=== PATIENT | female | born 1955 | race Caucasian/White ===

== ENCOUNTER 2019-04-19 17:47 | Inpatient (IN) | payer SELFPAY ==
[~2019-04-19] VITALS: Ht 160 cm; Wt 138.5 kg
[~2019-04-19 17:47] MED LIST: LIDOCAINE 2% TOPICAL JELLY 5GM TUBE. TP ONE
[2019-04-19 18:25] LABS: BILIRUBIN,URINE LARGE (NEG); CLARITY,URINE CLOUDY; NITRITE,URINE POSITIVE (NEG); PROTEIN,URINE 30 mg/dL (NEG-TRACE)
[2019-04-19 18:29] LABS: BASO % 0 % (0-3); EOS % 0 % (0-3); HEMATOCRIT 40.7 % (36.0-47.0); LYMPH # 1.1 x10^3/uL (1.0-4.8); LYMPH % 10 % (24-48); MEAN CORPUSCULAR HEMOGLOBIN 23 pg (25-35); MEAN CORPUSCULAR HGB CONC 32 g/dL (31-37); MEAN CORPUSCULAR VOLUME 71 fL (79-100); MONO # 0.6 x10^3/uL (0.0-1.1); MONO % 6 % (0-9); NEUT # 9.1 x10^3/uL (1.8-7.7); NEUT % 84 % (31-73); PLATELET COUNT 244 x10^3/uL (140-400); RED BLOOD COUNT 5.77 x10^6/uL (3.50-5.40); RED CELL DISTRIBUTION WIDTH 17.5 % (11.5-14.5); WHITE BLOOD COUNT 10.8 x10^3/uL (4.0-11.0)
[2019-04-19 18:30] LABS: COLOR,URINE AMBER; SQUAMOUS EPITHELIAL CELL,UR FEW /LPF
[2019-04-19 18:31] LABS: BACTERIA,URINE MANY /HPF (0-FEW); RBC,URINE TNTC /HPF (0-2)
--- NOTE | 2019-04-19 18:31 | PHYS DOC ---
Past Medical History Past Medical History: Diabetes-Type II, Hypertension Past Surgical History: Additional Past Surgical Histo: X2 Alcohol Use: None Drug Use: None Date and Time of Assessment Date: Apr 19, 2019 Time: 19:25 Vital Signs Vital Signs: Vital Signs Date Time Temp Pulse Resp B/P (MAP) Pulse Ox O2 Delivery O2 Flow Rate FiO2 04/19/19 17:47 97.7 122 20 148/67 (94) 95 Room Air 97.7 Temperature Source: Oral Respirations Respiratory Pattern: Normal Peripheral Pulse Pulse Location: Monitor Pulse Assessment Method: Monitor Integumentary Skin: Warm Skin Turgor: Normal Skin Color: warm, dry Adult General Chief Complaint Chief Complaint: WEAKNESS/GENERALIZED HPI HPI Patient is a 63 year old female who presents with states of weakness. Patient states she's had ongoing weakness times prostate 3 weeks with falls �2. She'll follow Wednesday she states her right leg gave out hitting her head. She is well sutured a fall today. She describes nausea, decreased appetite. Patient has no primary care physician, takes no medications. She is given her progressive weakness in her falls she presented to the emergency department for further evaluation. Prior to 3 weeks ago she's been ambulating on her own however now states her has to help move her in transfer her to different positions. Review of Systems Review of Systems Constitutional: Chills, weakness HENT: Denies nasal congestion or sore throat [] Respiratory: Off, no shortness of breath Cardiovascular: No chest pain GI: Denies abdominal pain, vomiting, bloody stools or diarrhea [positive nausea] : Denies dysuria or hematuria [] Musculoskeletal: Weakness Integument: Venous stasis changes to lower extremities, dry skin, excoriation to peroneal area. Neurologic: Denies headache Endocrine: Denies polyuria or polydipsia [] All other systems were reviewed and found to be within normal limits, except as documented in this note. Current Medications Current Medications Current Medications Medications (Trade) Dose Ordered Sig/[place] Start Time Stop Time Status Last Admin Dose Admin Acetaminophen (Tylenol) 650 mg PRN Q4HRS PRN 04/19/19 19:30 04/20/19 19:29 Ceftriaxone Sodium (Rocephin) 1 gm 1X ONCE 04/19/19 18:45 04/19/19 18:46 DC 04/19/19 19:17 1 GM Dextrose 250 ml PRN Q15MIN PRN 04/19/19 19:30 Dextrose (Dextrose 50%-Water Syringe) 12.5 gm PRN Q15MIN PRN 04/19/19 19:30 Insulin Human Lispro (HumaLOG) 0-7 UNITS TIDWMEALS 04/20/19 08:00 Ondansetron HCl (Zofran) 4 mg PRN Q8HRS PRN 04/19/19 19:30 04/20/19 19:29 Sodium Chloride 1,000 ml @ 1,560 mls/hr Q39M 04/19/19 19:15 04/19/19 20:03 04/19/19 19:17 1,560 MLS/HR Vancomycin HCl (Vanco Per Pharmacy) 1 each PRN DAILY PRN 04/19/19 19:15 UNV Vancomycin HCl 2 gm/Sodium Chloride 500 ml @ 250 mls/hr 1X ONCE 04/19/19 19:15 04/19/19 21:14 Allergies Allergies Allergies Coded Allergies Type Severity Reaction Last Updated Verified No Known Drug Allergies 04/19/19 No Physical Exam Physical Exam Constitutional: Ill - Appearing female, no acute distress HENT: Normocephalic, abrasions appreciated right side of face, dry mucous membranes[] Eyes: PERRLA, EOMI, conjunctiva normal, no discharge. [] Neck: Normal range of motion, no tenderness, supple, no stridor. [] Cardiovascular: Tachycardia Lungs & Thorax: Bilateral breath sounds clear to auscultation [] Abdomen: Bowel sounds normal, soft, no tenderness, no masses, no pulsatile masses. [] Skin: Warm, dry, erythema to bilaterl lower ext/venous stasis changes. [] : Excoriation, bruising appreciated to perineal area Back: No tenderness, no CVA tenderness. [] Extremities: bilateral lower ext edema, chronic Neurologic: Alert and oriented X 3, normal motor function, normal sensory function, no focal deficits noted. [] Psychologic: Flat affect. [] Current Patient Data Vital Signs Vital Signs Date Time Temp Pulse Resp B/P (MAP) Pulse Ox O2 Delivery O2 Flow Rate FiO2 04/19/19 17:47 97.7 122 20 148/67 (94) 95 Room Air 97.7 Lab Values Laboratory Tests Test 04/19/19 18:08 04/19/19 18:19 Urine Collection Type U cath Urine Color Yani Urine Clarity Cloudy Urine pH 5.0 Urine Specific [place] 1.025 Urine Protein 30 mg/dL (NEG-TRACE) Urine Glucose (UA) 100 mg/dL (NEG) Urine Ketones (Stick) Trace mg/dL (NEG) Urine Blood Large (NEG) Urine Nitrite Positive (NEG) Urine Bilirubin Large (NEG) Urine Urobilinogen Dipstick 2.0 mg/dL (0.2 mg/dL) Urine Leukocyte Esterase Moderate (NEG) Urine RBC Tntc /HPF (0-2) Urine WBC 11-20 /HPF (0-4) Urine Squamous Epithelial Cells Few /LPF Urine Amorphous Sediment Present /HPF Urine Bacteria Many /HPF (0-FEW) Urine Hyaline Casts Moderate /HPF Urine Mucus Mod /LPF White Blood Count 10.8 x10^3/uL (4.0-11.0) Red Blood Count 5.77 x10^6/uL (3.50-5.40) H Hemoglobin 13.0 g/dL (12.0-15.5) Hematocrit 40.7 % (36.0-47.0) Mean Corpuscular Volume 71 fL (79-100) L Mean Corpuscular Hemoglobin 23 pg (25-35) L Mean Corpuscular Hemoglobin Concent 32 g/dL (31-37) Red Cell Distribution Width 17.5 % (11.5-14.5) H Platelet Count 244 x10^3/uL (140-400) Neutrophils (%) (Auto) 84 % (31-73) H Lymphocytes (%) (Auto) 10 % (24-48) L Monocytes (%) (Auto) 6 % (0-9) Eosinophils (%) (Auto) 0 % (0-3) Basophils (%) (Auto) 0 % (0-3) Neutrophils # (Auto) 9.1 x10^3/uL (1.8-7.7) H Lymphocytes # (Auto) 1.1 x10^3/uL (1.0-4.8) Monocytes # (Auto) 0.6 x10^3/uL (0.0-1.1) Eosinophils # (Auto) 0.0 x10^3/uL (0.0-0.7) Basophils # (Auto) 0.0 x10^3/uL (0.0-0.2) Platelet Estimate Adequate (ADEQUATE) Hypochromasia Mod Anisocytosis Slight Microcytosis Mod Sodium Level 127 mmol/L (136-145) L Potassium Level 4.0 mmol/L (3.5-5.1) Chloride Level 90 mmol/L (98-107) L Carbon Dioxide Level 24 mmol/L (21-32) Anion Gap 13 (6-14) Blood Urea Nitrogen 39 mg/dL (7-20) H Creatinine 1.3 mg/dL (0.6-1.0) H Estimated GFR (Cockcroft-Gault) 41.2 BUN/Creatinine Ratio 30 (6-20) H Glucose Level 373 mg/dL (70-99) H Lactic Acid Level 4.3 mmol/L (0.4-2.0) *H Calcium Level 8.6 mg/dL (8.5-10.1) Total Bilirubin 1.0 mg/dL (0.2-1.0) Aspartate Amino Transferase (AST) 87 U/L (15-37) H Alanine Aminotransferase (ALT) 38 U/L (14-59) Alkaline Phosphatase 249 U/L (46-116) H Creatine Kinase 115 U/L (26-192) Total Protein 7.3 g/dL (6.4-8.2) Albumin 2.1 g/dL (3.4-5.0) L Albumin/Globulin Ratio 0.4 (1.0-1.7) L Procalcitonin 25.73 ng/mL (0.00-0.10) H Laboratory Tests 04/19/19 18:19 Laboratory Tests 04/19/19 18:19 EKG EKG Tachycardic, heart rate 122, no evidence of acute ST or T wave change.[] Interpretation Time: 1823 Radiology/Procedures Radiology/Procedures [facility] [address] [place] [address] IMAGING REPORT Signed PATIENT: XENA LEE ACCOUNT: [id number] : 1955 LOCATION: ER AGE: 63 SEX: F EXAM STATUS: REG ER ORD. PHYSICIAN: BENJIE DE LOS SANTOS MD REASON: Fall x 2, head injury without LOC, abrasion face PROCEDURE: CT HEAD WO CONTRAST Exam: CT head INDICATION: Fall x2 TECHNIQUE: Sequential axial images through the head were obtained without the administration of IV contrast. Comparisons: None FINDINGS: No focal parenchymal lesion or hemorrhage is identified. There is no midline shift or sulcal effacement. No acute vascular territory infarction is identified. Coombs-white distinction is preserved. The ventricular system is within normal limits without compression hydrocephalus. The basal cisterns are well maintained. The visualized portions of the paranasal sinuses and mastoid air cells are well-pneumatized. No acute fractures. IMPRESSION: No acute intracranial abnormality. Exposure: One or more of the following in the visualized dose reduction techniques were utilized for this examination: 1. Automated exposure control 2. Adjustment of the MA and/or KV according to patient size Use of iterative of reconstructive technique Electronically signed by: Branden Zavala MD (04/19/2019 6:57 PM) [facility] DICTATED and SIGNED BY: BRANDEN ZAVALA MD DATE: 04/19/191856 [] Urgency department interpretation chest x-ray reveals no evidence of acute process, no pulmonary edema appreciated, no consolidation Course & Med Decision Making Course & Med Decision Making Pertinent Labs and Imaging studies reviewed. (See chart for details) [63yo female presents to the emergency department with complaints of weakness, fall. Patient states she's had difficulty with ambulation worsening the last 3 weeks. Patient states did hit her head on Wednesday. Labs and imaging reviewed. Patient with evidence of severe sepsis on examination, positive urinary tract infection. Antibiotics, cultures obtained. Patient received 30 mL's per kilogram bolus given severe sepsis lactic acidosis of 4.3. She is normotensive in the emergency department, no concerns for hypotension. Discussed admission with hospitalist.([facility]) labs do reveal elevation of blood sugar greater than 340, no history of diabetes, new onset diagnosis. CT head and chest negative for acute process] Dragon Disclaimer Dragon Disclaimer This electronic medical record was generated, in whole or in part, using a voice recognition dictation system. Departure Departure Impression: Primary Impression: Severe sepsis Additional Impressions: UTI (urinary tract infection) Diabetes Fall Disposition: ADMITTED INPATIENT Admitting Physician: HIMS Condition: STABLE Referrals: NO PCP (PCP) Date and Time of Assessment Date: Apr 19, 2019 Time: 18:30 Vital Signs Vital Signs: Vital Signs Date Time Temp Pulse Resp B/P (MAP) Pulse Ox O2 Delivery O2 Flow Rate FiO2 04/19/19 17:47 97.7 122 20 148/67 (94) 95 Room Air 97.7 Temperature Source: Oral Respirations Respiratory Pattern: Normal Lung Sounds Breath Sounds: Clear Peripheral Pulse Pulse Location: Monitor Pulse Strength: Normal (2+) Pulse Assessment Method: Monitor Integumentary Skin: Warm, Dry Date and Time of Reassessment Date: Apr 19, 2019 Time: 19:20 Fluid Challenge Is the fluid challenge complet: Yes IBW Target Volume Used: Yes BMI > 30: Yes Vital Signs Vital Signs: Vital Signs Date Time Temp Pulse Resp B/P (MAP) Pulse Ox O2 Delivery O2 Flow Rate FiO2 04/19/19 17:47 97.7 122 20 148/67 (94) 95 Room Air 97.7 Temperature Source: Oral Respirations Respiratory Effort: Normal Respiratory Pattern: Normal Cardiovascular Pulse Rhythm: Irregular Heart: S1 and S2 normal Lung Sounds Breath Sounds: Clear Capillary Refil Capillary Refill: Lt Hand < 3 seconds Peripheral Pulse Pulse Location: Monitor Pulse Strength: Normal (2+) Pulse Assessment Method: Monitor Integumentary Skin: Warm, Dry Skin Moisture: Dry Skin Turgor: Normal Skin Color: warm, dry Fingernail Color: WNL (currently receiving 30ml/kg bolus, HR improved from 122 and now 111) Problem Qualifiers Additional Impressions: UTI (urinary tract infection) Urinary tract infection type: site unspecified Hematuria presence: without hematuria Qualified Codes: N39.0 - Urinary tract infection, site not specified Diabetes Diabetes mellitus type: other specified (including KRIS) Diabetes mellitus surgical supplies sterilizer insulin use: without senior care use Diabetes mellitus complication status: without complication Qualified Codes: E13.9 - Other specified diabetes mellitus without complications Fall Encounter type: initial encounter Qualified Codes: W19.XXXA - Unspecified fall, initial encounter BENJIE DE LOS SANTOS MD Apr 19, 2019 18:31
[2019-04-19 18:32] LABS: AMORPHOUS SEDIMENT,UR PRESENT /HPF; HYALINE CASTS, URINE MODERATE /HPF
[2019-04-19 18:38] LABS: CALCIUM 8.6 mg/dL (8.5-10.1); CREATININE 1.3 mg/dL (0.6-1.0); GFR 41.2
[2019-04-19 18:44] LABS: ALBUMIN 2.1 g/dL (3.4-5.0); ALBUMIN/GLOBULIN RATIO 0.4 (1.0-1.7); TOTAL PROTEIN 7.3 g/dL (6.4-8.2)
[2019-04-19] MEDS ORDERED: IV NORMAL SALINE 1000ML BAG 1,000 ML IV ONE (18:45)
[2019-04-19] MEDS ORDERED: cefTRIAXone IV Push 1 GM VIAL. IVP ONE (18:45)
--- NOTE | 2019-04-19 18:59 | RAD ---
Exam: CT head INDICATION: Fall x2 TECHNIQUE: Sequential axial images through the head were obtained without the administration of IV contrast. Comparisons: None FINDINGS: No focal parenchymal lesion or hemorrhage is identified. There is no midline shift or sulcal effacement. No acute vascular territory infarction is identified. Coombs-white distinction is preserved. The ventricular system is within normal limits without compression hydrocephalus. The basal cisterns are well maintained. The visualized portions of the paranasal sinuses and mastoid air cells are well-pneumatized. No acute fractures. IMPRESSION: No acute intracranial abnormality. Exposure: One or more of the following in the visualized dose reduction techniques were utilized for this examination: 1. Automated exposure control 2. Adjustment of the MA and/or KV according to patient size Use of iterative of reconstructive technique Electronically signed by: Branden Coleman MD (04/19/2019 6:57 PM) [facility]
[2019-04-19] MEDS ORDERED: IV NORMAL SALINE 1000ML BAG 1,560 ML IV SCH (19:03)
[2019-04-19 19:12] LABS: PLT ESTIMATE ADEQUATE (ADEQUATE)
[2019-04-19 19:13] LABS: ANISOCYTOSIS SLIGHT; HYPOCHROMIA MOD; MICROCYTOSIS MOD
[2019-04-19] MEDS ORDERED: VANCOMYCIN 2 GM in IV NORMAL SALINE 500ML BAG 500 ML IV ONE (19:15)
[2019-04-19] MEDS ORDERED: IV NORMAL SALINE 1000ML BAG 1,000 ML IV SCH (19:15)
[2019-04-19] MEDS ORDERED: ACETAMINOPHEN 325 MG TABLET. PO PRN (19:30)
[2019-04-19] MEDS ORDERED: IV DEXTROSE 5% 250 ML BAG. IV PRN (19:30)
[2019-04-19] MEDS ORDERED: DEXTROSE 50% 25 GM / 50ML DISP.SYRIN. IV PRN (19:30)
--- NOTE | 2019-04-19 19:44 | RAD ---
Exam: Chest one view INDICATION: Cough TECHNIQUE: Frontal view of the chest Comparisons: None FINDINGS: The cardiomediastinal silhouette and pulmonary vessels are within normal limits. The lung and pleural spaces are clear. IMPRESSION: No acute cardiopulmonary process. Electronically signed by: Branden Coleman MD (04/19/2019 7:41 PM) [facility]
[2019-04-19] MEDS: VANCOMYCIN PER PHARMACY MC PRN ×2 (21:28→21:38)
--- NOTE | 2019-04-19 21:38 | NUR ---
Pharmacy Vancomycin Dosing Note S:Consulted to monitor and dose vancomycin started 04/19/19. O:XENA LEE is a 63 year old F with Sepsis UTI . Height: 5 feet, 3 inches Weight: 147.657655 kg [place] Body Weight: 52.40 Adjusted Body Weight: 90.24 Dosing Weight: Actual Other Antibiotics: ZOSYN LABS: Last BUN: Last Creatinine: 1.3 Creatinine Clearance: 62.5 mL/min Last WBC: Last Procalcitonin: 25.73 Tmax (past 24 hours): 97.7 Microbiology: I/O: Drug Levels: Last level: on at Last dose given 04/19/19 at 2000 Vancomycin Dosing: Loading Dose: 2000 mg x1 Dosing Weight: Actual Target Trough: 15-20 A: Based on: WEIGHT AND RENAL FUNCTION, 2GM VANCOMYCIN IV BOLUS GIVEN, P: 1. Begin Vancomycin 1500 mg IV q12h TOMORROW 2. Follow up Trough level on 04/21/19 at 0730 3. Pharmacy will continue to monitor, follow and adjust therapy as needed. KRISTA QUIROZ [facility], 04/19/19 [id number]
[2019-04-19 23:09] VITALS: BP 126/64
[2019-04-20] VITALS (22 sets, daily range): BP systolic 77–151; BP diastolic 48–100
[2019-04-20] MEDS: ONDANSETRON PF 4 MG/2 ML VIAL. IV PRN ×2 (00:31→09:35)
[2019-04-20] MEDS ORDERED: IV NORMAL SALINE 1000ML BAG 1,000 ML IV SCH (02:30)
[2019-04-20] MEDS ORDERED: INSULIN LISPRO 300 UNITS/3 ML VIAL. SQ ONE (03:15)
[2019-04-20] MEDS: INSULIN LISPRO 300 UNITS/3 ML VIAL. SQ SCH ×3 (08:00→19:52)
--- NOTE | 2019-04-20 08:04 | EKG ---
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
[2019-04-20] MEDS: VANCOMYCIN 1.5 GM in IV NORMAL SALINE 500ML BAG 500 ML IV SCH ×2 (08:18→19:58)
--- NOTE | 2019-04-20 09:00 | NUR ---
Pt has vomited multiple times throughout the night and this morning. Emesis is light brown, thin, and has foul odor. Dr. Pascual notified, orders received to consult GI and PRN medications adjusted. Will continue to monitor.
[2019-04-20] MEDS ORDERED: ONDANSETRON PF 4 MG/2 ML VIAL. IV PRN (10:00)
[2019-04-20 11:09] LABS: BASO % 0 % (0-3); EOS # 0.1 x10^3/uL (0.0-0.7); EOS % 1 % (0-3); HEMATOCRIT 39.2 % (36.0-47.0); HEMOGLOBIN 12.7 g/dL (12.0-15.5); LYMPH # 1.2 x10^3/uL (1.0-4.8); LYMPH % 13 % (24-48); MEAN CORPUSCULAR HEMOGLOBIN 23 pg (25-35); MEAN CORPUSCULAR HGB CONC 33 g/dL (31-37); MEAN CORPUSCULAR VOLUME 70 fL (79-100); MONO # 0.5 x10^3/uL (0.0-1.1); MONO % 6 % (0-9); NEUT # 7.8 x10^3/uL (1.8-7.7); NEUT % 81 % (31-73); PLATELET COUNT 195 x10^3/uL (140-400); RED BLOOD COUNT 5.63 x10^6/uL (3.50-5.40); RED CELL DISTRIBUTION WIDTH 17.9 % (11.5-14.5); WHITE BLOOD COUNT 9.7 x10^3/uL (4.0-11.0)
[2019-04-20 11:10] LABS: CALCIUM 8.1 mg/dL (8.5-10.1); CREATININE 1.1 mg/dL (0.6-1.0); POTASSIUM 3.4 mmol/L (3.5-5.1)
[2019-04-20] MEDS ORDERED: IV NORMAL SALINE 500ML BAG 500 ML IV ONE (11:15)
[2019-04-20 11:17] LABS: ALBUMIN 1.8 g/dL (3.4-5.0); ALBUMIN/GLOBULIN RATIO 0.4 (1.0-1.7); TOTAL BILIRUBIN 0.7 mg/dL (0.2-1.0); TOTAL PROTEIN 6.5 g/dL (6.4-8.2)
--- NOTE | 2019-04-20 11:26 | PDOC2 ---
GI CONSULT Reason For Consult: Coffee-ground emesis HPI: HPI: 63 y/o female who is not feeling well and seems anxious - history is a bit challenging, really would like a new box of [place] brought to her room. Admitted through ER yesterday after falls at home (hit her head). Has UTI w/ elevated procalcitonin and lactic acid, also apparently new diagnosis of DM. GI-benjamin, describes illness for 1 month w/ intermittent vomiting, abdominal cram ping, and constipation (last stooled 1 week ago). Emesis was "dark" before but now is light brown. Not sure about weight loss. Does not take any medications at home. Intermittent heartburn/reflux. No dysphagia. No hematochezia or melena. No previous EGD. Had a colonoscopy that was reportedly normal at some point. No GB, liver, pancreas, or PUD history. Denies NSAIDs. PMH: PMH: x 2, umbilical hernia repair Social History: Smoke: No ALCOHOL: none ROS: GEN: Denies fevers, chills, sweats HEENT: Denies blurred vision, sore throat CV: Denies chest pain RESP: Denies shortness of air, cough GI: Per HPI : Denies hematuria, dysuria ENDO: ?weight loss NEURO: Denies confusion, dizziness MSK: Denies weakness, joint pain/swelling SKIN: chronic LE swelling/skin changes Vitals: Vitals: Vital Signs Date Time Temp Pulse Resp B/P (MAP) Pulse Ox O2 Delivery O2 Flow Rate FiO2 04/20/19 10:44 97.6 105 20 126/75 (92) 94 Room Air 97.6 Labs: Labs: Laboratory Tests Test 04/19/19 18:08 04/19/19 18:19 04/19/19 21:45 04/19/19 22:41 Urine Collection Type U cath Urine Color Yani Urine Clarity Cloudy Urine pH 5.0 Urine Specific [place] 1.025 Urine Protein 30 mg/dL (NEG-TRACE) Urine Glucose (UA) 100 mg/dL (NEG) Urine Ketones (Stick) Trace mg/dL (NEG) Urine Blood Large (NEG) Urine Nitrite Positive (NEG) Urine Bilirubin Large (NEG) Urine Urobilinogen Dipstick 2.0 mg/dL (0.2 mg/dL) Urine Leukocyte Esterase Moderate (NEG) Urine RBC Tntc /HPF (0-2) Urine WBC 11-20 /HPF (0-4) Urine Squamous Epithelial Cells Few /LPF Urine Amorphous Sediment Present /HPF Urine Bacteria Many /HPF (0-FEW) Urine Hyaline Casts Moderate /HPF Urine Mucus Mod /LPF White Blood Count 10.8 x10^3/uL (4.0-11.0) Red Blood Count 5.77 x10^6/uL (3.50-5.40) Hemoglobin 13.0 g/dL (12.0-15.5) Hematocrit 40.7 % (36.0-47.0) Mean Corpuscular Volume 71 fL (79-100) Mean Corpuscular Hemoglobin 23 pg (25-35) Mean Corpuscular Hemoglobin Concent 32 g/dL (31-37) Red Cell Distribution Width 17.5 % (11.5-14.5) Platelet Count 244 x10^3/uL (140-400) Neutrophils (%) (Auto) 84 % (31-73) Lymphocytes (%) (Auto) 10 % (24-48) Monocytes (%) (Auto) 6 % (0-9) Eosinophils (%) (Auto) 0 % (0-3) Basophils (%) (Auto) 0 % (0-3) Neutrophils # (Auto) 9.1 x10^3/uL (1.8-7.7) Lymphocytes # (Auto) 1.1 x10^3/uL (1.0-4.8) Monocytes # (Auto) 0.6 x10^3/uL (0.0-1.1) Eosinophils # (Auto) 0.0 x10^3/uL (0.0-0.7) Basophils # (Auto) 0.0 x10^3/uL (0.0-0.2) Platelet Estimate Adequate (ADEQUATE) Hypochromasia Mod Anisocytosis Slight Microcytosis Mod Sodium Level 127 mmol/L (136-145) Potassium Level 4.0 mmol/L (3.5-5.1) Chloride Level 90 mmol/L (98-107) Carbon Dioxide Level 24 mmol/L (21-32) Anion Gap 13 (6-14) Blood Urea Nitrogen 39 mg/dL (7-20) Creatinine 1.3 mg/dL (0.6-1.0) Estimated GFR (Cockcroft-Gault) 41.2 BUN/Creatinine Ratio 30 (6-20) Glucose Level 373 mg/dL (70-99) Lactic Acid Level 4.3 mmol/L (0.4-2.0) 2.7 mmol/L (0.4-2.0) Calcium Level 8.6 mg/dL (8.5-10.1) Total Bilirubin 1.0 mg/dL (0.2-1.0) Aspartate Amino Transf (AST/SGOT) 87 U/L (15-37) Alanine Aminotransferase (ALT/SGPT) 38 U/L (14-59) Alkaline Phosphatase 249 U/L (46-116) Creatine Kinase 115 U/L (26-192) Total Protein 7.3 g/dL (6.4-8.2) Albumin 2.1 g/dL (3.4-5.0) Albumin/Globulin Ratio 0.4 (1.0-1.7) Procalcitonin 25.73 ng/mL (0.00-0.10) Glucose (Fingerstick) 311 mg/dL (70-99) Test 04/20/19 02:43 04/20/19 07:28 04/20/19 10:15 04/20/19 10:30 Glucose (Fingerstick) 312 mg/dL (70-99) 280 mg/dL (70-99) 255 mg/dL (70-99) White Blood Count 9.7 x10^3/uL (4.0-11.0) Red Blood Count 5.63 x10^6/uL (3.50-5.40) Hemoglobin 12.7 g/dL (12.0-15.5) Hematocrit 39.2 % (36.0-47.0) Mean Corpuscular Volume 70 fL (79-100) Mean Corpuscular Hemoglobin 23 pg (25-35) Mean Corpuscular Hemoglobin Concent 33 g/dL (31-37) Red Cell Distribution Width 17.9 % (11.5-14.5) Platelet Count 195 x10^3/uL (140-400) Neutrophils (%) (Auto) 81 % (31-73) Lymphocytes (%) (Auto) 13 % (24-48) Monocytes (%) (Auto) 6 % (0-9) Eosinophils (%) (Auto) 1 % (0-3) Basophils (%) (Auto) 0 % (0-3) Neutrophils # (Auto) 7.8 x10^3/uL (1.8-7.7) Lymphocytes # (Auto) 1.2 x10^3/uL (1.0-4.8) Monocytes # (Auto) 0.5 x10^3/uL (0.0-1.1) Eosinophils # (Auto) 0.1 x10^3/uL (0.0-0.7) Basophils # (Auto) 0.0 x10^3/uL (0.0-0.2) Sodium Level 132 mmol/L (136-145) Potassium Level 3.4 mmol/L (3.5-5.1) Chloride Level 95 mmol/L (98-107) Carbon Dioxide Level 26 mmol/L (21-32) Anion Gap 11 (6-14) Blood Urea Nitrogen 43 mg/dL (7-20) Creatinine 1.1 mg/dL (0.6-1.0) Estimated GFR (Cockcroft-Gault) 50.0 BUN/Creatinine Ratio 39 (6-20) Glucose Level 277 mg/dL (70-99) Lactic Acid Level 2.5 mmol/L (0.4-2.0) Calcium Level 8.1 mg/dL (8.5-10.1) Total Bilirubin 0.7 mg/dL (0.2-1.0) Aspartate Amino Transf (AST/SGOT) 92 U/L (15-37) Alanine Aminotransferase (ALT/SGPT) 34 U/L (14-59) Alkaline Phosphatase 251 U/L (46-116) Total Protein 6.5 g/dL (6.4-8.2) Albumin 1.8 g/dL (3.4-5.0) Albumin/Globulin Ratio 0.4 (1.0-1.7) Allergies: Coded Allergies: No Known Drug Allergies (Unverified , 04/19/19) Medications: Current Medications Medications (Trade) Dose Ordered Sig/[place] Route PRN Reason Start Time Stop Time Status Last Admin Dose Admin Sodium Chloride 1,000 ml @ 0 mls/hr 1X ONCE IV 04/19/19 18:45 04/19/19 18:46 DC 04/19/19 20:10 Ceftriaxone Sodium (Rocephin) 1 gm 1X ONCE IVP 04/19/19 18:45 04/19/19 18:46 DC 04/19/19 19:17 Vancomycin HCl (Vanco Per Pharmacy) 1 each PRN DAILY PRN MC SEE COMMENTS 04/19/19 19:15 04/19/19 21:38 Vancomycin HCl 2 gm/Sodium Chloride 500 ml @ 250 mls/hr 1X ONCE IV 04/19/19 19:15 04/19/19 21:14 DC 04/19/19 20:01 Sodium Chloride 1,000 ml @ 1,560 mls/hr Q39M IV 04/19/19 19:15 04/19/19 20:03 DC 04/19/19 19:17 Ondansetron HCl (Zofran) 4 mg PRN Q8HRS PRN IV NAUSEA/VOMITING 04/19/19 19:30 04/20/19 10:00 DC 04/20/19 09:36 Insulin Human Lispro (HumaLOG) 0-7 UNITS TIDWMEALS SQ 04/20/19 08:00 04/20/19 08:33 Vancomycin HCl 1.5 gm/Sodium Chloride 500 ml @ 250 mls/hr Q12H IV 04/20/19 08:00 04/20/19 08:33 Sodium Chloride 1,000 ml @ 80 mls/hr [id number] IV 04/20/19 02:30 04/20/19 11:23 DC 04/20/19 02:46 Insulin Human Lispro (HumaLOG) 4 units 1X ONCE SQ 04/20/19 03:15 04/20/19 03:16 DC 04/20/19 04:04 Imaging: Imaging: Head CT IMPRESSION: No acute intracranial abnormality. CXR IMPRESSION: No acute cardiopulmonary process. PE: GEN: uncomfortable, unkempt HEENT: Atraumatic, PERRL LUNGS: room air HEART: tachycardic ABD: large, vaguely tender, hard/round lump in right periumbilical area EXTREMITY/SKIN: chronic LE edema and skin changes w/ erythema and odor NEURO/PSYCH: A & O �3, anxious A/P: A/P: Weakness, falls New DM, UTI/sepsis N/v, abd cramping, change in bowel habits Microcytosis, abnormal LFTs CRC screen - has had previous colonoscopy, unclear timing Obesity -- Check CT A/P. Keep NPO for now w/ vomiting. Add IV PPI. Check iron studies. Monitor LFTs - consider US if indicated. Address constipation when able to review CT. ID and cardiology also asked to see. DESHAWN SALEH Apr 20, 2019 11:26
[2019-04-20] MEDS ORDERED: POTASSIUM CHLORIDE 20 MEQ TABLET.ER. PO ONE (11:30)
--- NOTE | 2019-04-20 11:45 | HP ---
ADMIT DATE: 04/19/2019 CHIEF COMPLAINT: Weakness. HISTORY OF PRESENT ILLNESS: The patient is a pleasant elderly female who presented with weakness with some mental status change. We did an evaluation in the ER; we have known she has got diabetes, new onset; UTI; and severe sepsis. She has got coffee-ground emesis now, she is hypotensive. She is very poorly kept her skin on her legs, there is hyperkeratotic and dirty. We suspect she has been stuck in bed for some time, not sure how she has been able to take care of herself. She states she lives at home with her who is 90 years old, but even she agrees that she probably needs halfway care placement. We are going to admit the patient, give her some IV antibiotics and fluids and consult GI and get medical social consultant on board to arrange long-term care. PAST MEDICAL HISTORY: Diabetes, hypertension and . ALLERGIES: None. FAMILY HISTORY: Hypertension. SOCIAL HISTORY: She lives at home with her . She does not drink, smoke or take drugs. 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 Her is retired as well. MEDICATIONS: Reviewed, please refer to the MRAD. REVIEW OF SYSTEMS: GENERAL: No history of weight change, weakness or fevers. SKIN: She complains of severe flaking of the skin on her legs and states she cannot get out of bed to clean herself. EYES: No blurred, double or loss of vision. NOSE AND THROAT: No history of nosebleeds, hoarseness or sore throat. HEART: No history of palpitations, chest pain or shortness of breath on exertion. LUNGS: Denies cough, hemoptysis, wheezing or shortness of breath. GASTROINTESTINAL: She complains of nausea and vomiting. GENITOURINARY: She complains of dysuria. NEUROLOGIC: She complains of severe weakness. PSYCHIATRIC: She complains of depression. ENDOCRINE: No history of heat or cold intolerance, polyuria or polydipsia. EXTREMITIES: She complains of severe swelling. LABORATORY DATA: White count is 9, hemoglobin 12.7 and platelets 195. Electrolytes: Sodium 132, potassium 3.4, chloride 95, bicarbonate 26, BUN 43, creatinine 1.1, glucose 277. Anion gap is normal at 11. Albumin is low at 1.8. ASSESSMENT AND PLAN: Gastrointestinal bleed, failure to thrive, multiple medical issues including hypokalemia, hyponatremia, azotemia, dehydration, new onset diabetes, probable malnutrition and overall just unable to take care of herself at home, suspect she is septic as well. The patient has been admitted. We will give her IV fluids, IV antibiotics, consult GI, consult Cardiology, cardiac monitoring, consult Infectious Disease, DVT prophylaxis, medical social consultant consult for long-term care, home meds. PROGNOSIS: Long-term guarded. CHRIS PHILLIPS DO DR: Cristian JOB#: [id number] / [id number]
[2019-04-20] MEDS: IV NORMAL SALINE 1000ML BAG 1,000 ML IV SCH ×2 (12:57→22:16)
[2019-04-20] MEDS: PANTOPRAZOLE IV PUSH 40 MG VIAL. IVP SCH (12:58)
[2019-04-20] MEDS: POTASSIUM CHLORIDE 10MEQ 100 ML IV SCH ×4 (12:58→20:00)
--- NOTE | 2019-04-20 13:07 | PDOC2 ---
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 Pascual SOURCE Source: Chart review, Patient HISTORY OF PRESENT ILLNESS HISTORY OF PRESENT ILLNESS This is a 63 yo female who presented secondary to weakness of fall. Patient reports she has has been increasingly weak for the last 2-3 weeks. Has been unable to keep any food down for the about that period of time as well. Last BM about a week and a half ago. UA upon arrival notable for UTI. Has been tach ycardiac on telemetry, which prompted this consult. Patient denies any chest pain, palpitations. Does feel slightly dizzy and short of air. No diaphoresis. Not fevers to her knowledge. No previous history of arrhythmia or CAD. PAST MEDICAL HISTORY Cardiovascular: HTN GI: GERD Renal/: UTI Endocrine: Diabetes PAST SURGICAL HISTORY Past Surgical History: , Hernia Repair FAMILY HISTORY Family History: Heart Disease (mother ) SOCIAL HISTORY Smoke: No ALCOHOL: none Drugs: None Lives: with Family CURRENT MEDICATIONS CURRENT MEDICATIONS Current Medications Medications (Trade) Dose Ordered Sig/[place] Route PRN Reason Start Time Stop Time Status Last Admin Dose Admin Sodium Chloride 1,000 ml @ 0 mls/hr 1X ONCE IV 04/19/19 18:45 04/19/19 18:46 DC 04/19/19 20:10 Ceftriaxone Sodium (Rocephin) 1 gm 1X ONCE IVP 04/19/19 18:45 04/19/19 18:46 DC 04/19/19 19:17 Vancomycin HCl (Vanco Per Pharmacy) 1 each PRN DAILY PRN MC SEE COMMENTS 04/19/19 19:15 04/19/19 21:38 Vancomycin HCl 2 gm/Sodium Chloride 500 ml @ 250 mls/hr 1X ONCE IV 04/19/19 19:15 04/19/19 21:14 DC 04/19/19 20:01 Sodium Chloride 1,000 ml @ 1,560 mls/hr Q39M IV 04/19/19 19:15 04/19/19 20:03 DC 04/19/19 19:17 Ondansetron HCl (Zofran) 4 mg PRN Q8HRS PRN IV NAUSEA/VOMITING 04/19/19 19:30 04/20/19 10:00 DC 04/20/19 09:36 Insulin Human Lispro (HumaLOG) 0-7 UNITS TIDWMEALS SQ 04/20/19 08:00 04/20/19 08:33 Vancomycin HCl 1.5 gm/Sodium Chloride 500 ml @ 250 mls/hr Q12H IV 04/20/19 08:00 04/20/19 08:33 Sodium Chloride 1,000 ml @ 80 mls/hr [id number] IV 04/20/19 02:30 04/20/19 11:23 DC 04/20/19 02:46 Insulin Human Lispro (HumaLOG) 4 units 1X ONCE SQ 04/20/19 03:15 04/20/19 03:16 DC 04/20/19 04:04 Sodium Chloride 500 ml @ 500 mls/hr 1X ONCE IV 04/20/19 11:15 04/20/19 12:14 DC 04/20/19 11:30 Sodium Chloride 1,000 ml @ 75 mls/hr [id number] IV 04/20/19 11:30 04/20/19 12:58 Pantoprazole Sodium (PROTONIX VIAL for IV PUSH) 40 mg DAILYAC IVP 04/20/19 12:30 04/20/19 12:58 Potassium Chloride/Water 100 ml @ 100 mls/hr Q1H IV 04/20/19 12:00 04/20/19 15:59 04/20/19 12:58 ALLERGIES ALLERGIES: Coded Allergies: No Known Drug Allergies (Unverified , 04/19/19) ROS Review of System 14 point ROS conducted with pertinent positives noted above in HPI. PHYSICAL EXAM General: Alert, Oriented X3, Cooperative, No acute distress, Other (appears uncomfortable ) HEENT: Atraumatic, Mucous membr. moist/pink Lungs: Clear to auscultation, Other (diminished bases) Heart: Regular rate, Other (distant heart tones ) Abdomen: Soft, Other (obese, vague tenderness ) Extremities: Normal pulses, Other (trace bilateral edema ) Skin: No significant lesion Neuro: Normal speech, Sensation intact Psych/Mental Status: Mental status NL MUSCULOSKELETAL: Osteoarthritic changes both hands VITALS/I&O VITALS/I&O: Vital Signs Date Time Temp Pulse Resp B/P (MAP) Pulse Ox O2 Delivery O2 Flow Rate FiO2 04/20/19 10:44 97.6 105 20 126/75 (92) 94 Room Air 97.6 I & O 04/19/19 04/19/19 04/20/19 15:00 23:00 07:00 Intake Total 180 ml Balance 180 ml LABS Lab: Laboratory Tests Test 04/19/19 18:08 04/19/19 18:19 04/19/19 21:45 04/19/19 22:41 Urine Collection Type U cath Urine Color Yani Urine Clarity Cloudy Urine pH 5.0 Urine Specific [place] 1.025 Urine Protein 30 mg/dL (NEG-TRACE) Urine Glucose (UA) 100 mg/dL (NEG) Urine Ketones (Stick) Trace mg/dL (NEG) Urine Blood Large (NEG) Urine Nitrite Positive (NEG) Urine Bilirubin Large (NEG) Urine Urobilinogen Dipstick 2.0 mg/dL (0.2 mg/dL) Urine Leukocyte Esterase Moderate (NEG) Urine RBC Tntc /HPF (0-2) Urine WBC 11-20 /HPF (0-4) Urine Squamous Epithelial Cells Few /LPF Urine Amorphous Sediment Present /HPF Urine Bacteria Many /HPF (0-FEW) Urine Hyaline Casts Moderate /HPF Urine Mucus Mod /LPF White Blood Count 10.8 x10^3/uL (4.0-11.0) Red Blood Count 5.77 x10^6/uL (3.50-5.40) H Hemoglobin 13.0 g/dL (12.0-15.5) Hematocrit 40.7 % (36.0-47.0) Mean Corpuscular Volume 71 fL (79-100) L Mean Corpuscular Hemoglobin 23 pg (25-35) L Mean Corpuscular Hemoglobin Concent 32 g/dL (31-37) Red Cell Distribution Width 17.5 % (11.5-14.5) H Platelet Count 244 x10^3/uL (140-400) Neutrophils (%) (Auto) 84 % (31-73) H Lymphocytes (%) (Auto) 10 % (24-48) L Monocytes (%) (Auto) 6 % (0-9) Eosinophils (%) (Auto) 0 % (0-3) Basophils (%) (Auto) 0 % (0-3) Neutrophils # (Auto) 9.1 x10^3/uL (1.8-7.7) H Lymphocytes # (Auto) 1.1 x10^3/uL (1.0-4.8) Monocytes # (Auto) 0.6 x10^3/uL (0.0-1.1) Eosinophils # (Auto) 0.0 x10^3/uL (0.0-0.7) Basophils # (Auto) 0.0 x10^3/uL (0.0-0.2) Platelet Estimate Adequate (ADEQUATE) Hypochromasia Mod Anisocytosis Slight Microcytosis Mod Sodium Level 127 mmol/L (136-145) L Potassium Level 4.0 mmol/L (3.5-5.1) Chloride Level 90 mmol/L (98-107) L Carbon Dioxide Level 24 mmol/L (21-32) Anion Gap 13 (6-14) Blood Urea Nitrogen 39 mg/dL (7-20) H Creatinine 1.3 mg/dL (0.6-1.0) H Estimated GFR (Cockcroft-Gault) 41.2 BUN/Creatinine Ratio 30 (6-20) H Glucose Level 373 mg/dL (70-99) H Lactic Acid Level 4.3 mmol/L (0.4-2.0) *H 2.7 mmol/L (0.4-2.0) H Calcium Level 8.6 mg/dL (8.5-10.1) Total Bilirubin 1.0 mg/dL (0.2-1.0) Aspartate Amino Transferase (AST) 87 U/L (15-37) H Alanine Aminotransferase (ALT) 38 U/L (14-59) Alkaline Phosphatase 249 U/L (46-116) H Creatine Kinase 115 U/L (26-192) Total Protein 7.3 g/dL (6.4-8.2) Albumin 2.1 g/dL (3.4-5.0) L Albumin/Globulin Ratio 0.4 (1.0-1.7) L Procalcitonin 25.73 ng/mL (0.00-0.10) H Glucose (Fingerstick) 311 mg/dL (70-99) H Test 04/20/19 02:43 04/20/19 07:28 04/20/19 10:15 04/20/19 10:30 Glucose (Fingerstick) 312 mg/dL (70-99) H 280 mg/dL (70-99) H 255 mg/dL (70-99) H White Blood Count 9.7 x10^3/uL (4.0-11.0) Red Blood Count 5.63 x10^6/uL (3.50-5.40) H Hemoglobin 12.7 g/dL (12.0-15.5) Hematocrit 39.2 % (36.0-47.0) Mean Corpuscular Volume 70 fL (79-100) L Mean Corpuscular Hemoglobin 23 pg (25-35) L Mean Corpuscular Hemoglobin Concent 33 g/dL (31-37) Red Cell Distribution Width 17.9 % (11.5-14.5) H Platelet Count 195 x10^3/uL (140-400) Neutrophils (%) (Auto) 81 % (31-73) H Lymphocytes (%) (Auto) 13 % (24-48) L Monocytes (%) (Auto) 6 % (0-9) Eosinophils (%) (Auto) 1 % (0-3) Basophils (%) (Auto) 0 % (0-3) Neutrophils # (Auto) 7.8 x10^3/uL (1.8-7.7) H Lymphocytes # (Auto) 1.2 x10^3/uL (1.0-4.8) Monocytes # (Auto) 0.5 x10^3/uL (0.0-1.1) Eosinophils # (Auto) 0.1 x10^3/uL (0.0-0.7) Basophils # (Auto) 0.0 x10^3/uL (0.0-0.2) Sodium Level 132 mmol/L (136-145) L Potassium Level 3.4 mmol/L (3.5-5.1) L Chloride Level 95 mmol/L (98-107) L Carbon Dioxide Level 26 mmol/L (21-32) Anion Gap 11 (6-14) Blood Urea Nitrogen 43 mg/dL (7-20) H Creatinine 1.1 mg/dL (0.6-1.0) H Estimated GFR (Cockcroft-Gault) 50.0 BUN/Creatinine Ratio 39 (6-20) H Glucose Level 277 mg/dL (70-99) H Lactic Acid Level 2.5 mmol/L (0.4-2.0) H Calcium Level 8.1 mg/dL (8.5-10.1) L Iron Level 11 ug/dL (50-170) L Total Iron Binding Capacity 151 ug/dL (250-450) L Iron Saturation 7 % (15-34) L Total Bilirubin 0.7 mg/dL (0.2-1.0) Aspartate Amino Transferase (AST) 92 U/L (15-37) H Alanine Aminotransferase (ALT) 34 U/L (14-59) Alkaline Phosphatase 251 U/L (46-116) H Total Protein 6.5 g/dL (6.4-8.2) Albumin 1.8 g/dL (3.4-5.0) L Albumin/Globulin Ratio 0.4 (1.0-1.7) L Test 04/20/19 11:32 Glucose (Fingerstick) 271 mg/dL (70-99) H Laboratory Tests 04/19/19 18:19 04/20/19 10:30 Laboratory Tests 04/19/19 18:19 04/20/19 10:30 ASSESSMENT/PLAN ASSESSMENT/PLAN 1. Weakness 2. UTI 3. Lactic acidosis 4. Persistent vomiting, abdominal cramping, constipation; Ct abd pelvis pending 5. Arrhythmia; tele noted with atrial tach in the setting of above. 6. RADHA 7. Hypokalemia; replace 8. Diabetes, II Recommendations Echo to assess LV systolic function Add low-dose BB TSH, Mg- replace as warranted Supportive care from a CV standpoint. DIANA CUELLO MD 04/20/19 1741: CARDIAC CONSULT ASSESSMENT/PLAN ASSESSMENT/PLAN Pt. seen and examined. Agree with above CLOTH BURLER note. 63 y.o woman with non-cardiac issues currently in sinus tachycardia. No obvious arrhythmias noted on tele. Echo with normal EF. Supportive care. Pls call with questions CHELSEA DAVIS APRN Apr 20, 2019 13:07 DIANA CUELLO MD Apr 20, 2019 17:41
[2019-04-20] MEDS ORDERED: METOPROLOL TART IMMED RELEASE 25 MG TABLET. PO SCH (14:00)
[2019-04-20] MEDS: VANCOMYCIN PER PHARMACY MC PRN (14:08)
--- NOTE | 2019-04-20 14:10 | CARD ---
MR#: [id number] Date of Study: 04/20/2019 Ordering Physician: CHELSEA DAVIS, Referring Physician: CHELSEA DAVIS, Tech: Leigh Mon MIRTA APPROVED REPORT EXAM: Two-dimensional and M-mode echocardiogram with Doppler and color Doppler. Other Information Quality : Technically LimitedHR: 120bpm Rhythm : TachycardiaTechnically limited study due to body habitus & heart rate. INDICATION Arrhythmia 2D DIMENSIONS RVDd3.0 (2.9-3.5cm)Left Atrium(2D)4.1 (1.6-4.0cm) IVSd1.4 (0.7-1.1cm)Aortic Root(2D)3.0 (2.0-3.7cm) LVDd3.9 (3.9-5.9cm)LVOT Diameter1.8 (1.8-2.4cm) PWd1.3 (0.7-1.1cm)LVDs2.8 (2.5-4.0cm) FS (%) 30.0 %SV38.9 ml LVEF(%)55.0 (>50%) M-Mode DIMENSIONS Left Atrium(MM)3.85 (2.5-4.0cm)Aortic Root2.98 (2.2-3.7cm) Aortic Valve AoV Peak Gavin.113.2cm/sAoV VTI17.7cm AO Peak GR.5.1mmHgLVOT Peak Gavin.111.0cm/s AO Mean GR.2mmHgAVA (VTI)2.60cm2 Mitral Valve MV E Aaxubtuf19.4cm/sMV DECEL [id number] MV A Lmgxoxnj255.4cm/sE/A Ratio0.6 Pulmonary Valve PV Peak Puwvqjsa34.9cm/s LEFT VENTRICLE The left ventricle is normal size. There is mild concentric left ventricular hypertrophy. Left ventri stewart systolic function is low normal. The Ejection Fraction is 50-55%. There is normal LV segmental wa ll motion. Transmitral Doppler flow pattern is abnormal. RIGHT VENTRICLE The right ventricle is normal size. There is normal right ventricular wall thickness. The right ventr icular systolic function is normal. ATRIA The left atrium is mildly dilated. The right atrium size is normal. The interatrial septum is intact with no evidence for an atrial septal defect or patent foramen ovale as noted on 2-D or Doppler imagi ng. AORTIC VALVE The aortic valve is normal in structure and function. The aortic valve is trileaflet. Doppler and Col or Flow revealed no significant aortic regurgitation. There is no significant aortic valvular stenosi s. There is no aortic valvular vegetation. MITRAL VALVE The mitral valve is thickened but opens well. There is no evidence of mitral valve prolapse. There is no mitral valve stenosis. Doppler and Color Flow revealed no mitral valve regurgitation noted. TRICUSPID VALVE The tricuspid valve is normal in structure and function. Doppler and Color Flow revealed no tricuspid valve regurgitation noted. There is no tricuspid valve prolapse or vegetation. There is no tricuspid valve stenosis. PULMONIC VALVE The pulmonic valve is not well visualized. GREAT VESSELS The aortic root is normal in size. The ascending aorta is normal in size. The IVC was not visualized. PERICARDIAL EFFUSION There is no evidence of significant pericardial effusion. Critical Notification Critical Value: No <Conclusion> Left ventricle systolic function is low normal. The Ejection Fraction is 50-55%. There is normal LV segmental wall motion. Technically difficult study. Signed by : Lion Mccarthy, Electronically Approved : 04/20/2019 14:09:56
[2019-04-20] MEDS: METOPROLOL TARTRATE 5 MG/5 ML VIAL. IVP SCH ×2 (14:28→19:00)
--- NOTE | 2019-04-20 14:44 | EKG ---
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
--- NOTE | 2019-04-20 15:23 | PDOC ---
Infectious Disease Note Vital Sign Vital Signs Vital Signs Date Time Temp Pulse Resp B/P (MAP) Pulse Ox O2 Delivery O2 Flow Rate FiO2 04/20/19 14:52 98.6 106 18 127/56 (79) 97 Nasal Cannula 3.0 98.6 Labs Lab Laboratory Tests Test 04/19/19 18:08 04/19/19 18:19 04/19/19 21:45 04/19/19 22:41 Urine Collection Type U cath Urine Color Yani Urine Clarity Cloudy Urine pH 5.0 Urine Specific [place] 1.025 Urine Protein 30 mg/dL (NEG-TRACE) Urine Glucose (UA) 100 mg/dL (NEG) Urine Ketones (Stick) Trace mg/dL (NEG) Urine Blood Large (NEG) Urine Nitrite Positive (NEG) Urine Bilirubin Large (NEG) Urine Urobilinogen Dipstick 2.0 mg/dL (0.2 mg/dL) Urine Leukocyte Esterase Moderate (NEG) Urine RBC Tntc /HPF (0-2) Urine WBC 11-20 /HPF (0-4) Urine Squamous Epithelial Cells Few /LPF Urine Amorphous Sediment Present /HPF Urine Bacteria Many /HPF (0-FEW) Urine Hyaline Casts Moderate /HPF Urine Mucus Mod /LPF White Blood Count 10.8 x10^3/uL (4.0-11.0) Red Blood Count 5.77 x10^6/uL (3.50-5.40) Hemoglobin 13.0 g/dL (12.0-15.5) Hematocrit 40.7 % (36.0-47.0) Mean Corpuscular Volume 71 fL (79-100) Mean Corpuscular Hemoglobin 23 pg (25-35) Mean Corpuscular Hemoglobin Concent 32 g/dL (31-37) Red Cell Distribution Width 17.5 % (11.5-14.5) Platelet Count 244 x10^3/uL (140-400) Neutrophils (%) (Auto) 84 % (31-73) Lymphocytes (%) (Auto) 10 % (24-48) Monocytes (%) (Auto) 6 % (0-9) Eosinophils (%) (Auto) 0 % (0-3) Basophils (%) (Auto) 0 % (0-3) Neutrophils # (Auto) 9.1 x10^3/uL (1.8-7.7) Lymphocytes # (Auto) 1.1 x10^3/uL (1.0-4.8) Monocytes # (Auto) 0.6 x10^3/uL (0.0-1.1) Eosinophils # (Auto) 0.0 x10^3/uL (0.0-0.7) Basophils # (Auto) 0.0 x10^3/uL (0.0-0.2) Platelet Estimate Adequate (ADEQUATE) Hypochromasia Mod Anisocytosis Slight Microcytosis Mod Sodium Level 127 mmol/L (136-145) Potassium Level 4.0 mmol/L (3.5-5.1) Chloride Level 90 mmol/L (98-107) Carbon Dioxide Level 24 mmol/L (21-32) Anion Gap 13 (6-14) Blood Urea Nitrogen 39 mg/dL (7-20) Creatinine 1.3 mg/dL (0.6-1.0) Estimated GFR (Cockcroft-Gault) 41.2 BUN/Creatinine Ratio 30 (6-20) Glucose Level 373 mg/dL (70-99) Lactic Acid Level 4.3 mmol/L (0.4-2.0) 2.7 mmol/L (0.4-2.0) Calcium Level 8.6 mg/dL (8.5-10.1) Total Bilirubin 1.0 mg/dL (0.2-1.0) Aspartate Amino Transf (AST/SGOT) 87 U/L (15-37) Alanine Aminotransferase (ALT/SGPT) 38 U/L (14-59) Alkaline Phosphatase 249 U/L (46-116) Creatine Kinase 115 U/L (26-192) Total Protein 7.3 g/dL (6.4-8.2) Albumin 2.1 g/dL (3.4-5.0) Albumin/Globulin Ratio 0.4 (1.0-1.7) Procalcitonin 25.73 ng/mL (0.00-0.10) Glucose (Fingerstick) 311 mg/dL (70-99) Test 04/20/19 02:43 04/20/19 07:28 04/20/19 10:15 04/20/19 10:30 Glucose (Fingerstick) 312 mg/dL (70-99) 280 mg/dL (70-99) 255 mg/dL (70-99) White Blood Count 9.7 x10^3/uL (4.0-11.0) Red Blood Count 5.63 x10^6/uL (3.50-5.40) Hemoglobin 12.7 g/dL (12.0-15.5) Hematocrit 39.2 % (36.0-47.0) Mean Corpuscular Volume 70 fL (79-100) Mean Corpuscular Hemoglobin 23 pg (25-35) Mean Corpuscular Hemoglobin Concent 33 g/dL (31-37) Red Cell Distribution Width 17.9 % (11.5-14.5) Platelet Count 195 x10^3/uL (140-400) Neutrophils (%) (Auto) 81 % (31-73) Lymphocytes (%) (Auto) 13 % (24-48) Monocytes (%) (Auto) 6 % (0-9) Eosinophils (%) (Auto) 1 % (0-3) Basophils (%) (Auto) 0 % (0-3) Neutrophils # (Auto) 7.8 x10^3/uL (1.8-7.7) Lymphocytes # (Auto) 1.2 x10^3/uL (1.0-4.8) Monocytes # (Auto) 0.5 x10^3/uL (0.0-1.1) Eosinophils # (Auto) 0.1 x10^3/uL (0.0-0.7) Basophils # (Auto) 0.0 x10^3/uL (0.0-0.2) Sodium Level 132 mmol/L (136-145) Potassium Level 3.4 mmol/L (3.5-5.1) Chloride Level 95 mmol/L (98-107) Carbon Dioxide Level 26 mmol/L (21-32) Anion Gap 11 (6-14) Blood Urea Nitrogen 43 mg/dL (7-20) Creatinine 1.1 mg/dL (0.6-1.0) Estimated GFR (Cockcroft-Gault) 50.0 BUN/Creatinine Ratio 39 (6-20) Glucose Level 277 mg/dL (70-99) Lactic Acid Level 2.5 mmol/L (0.4-2.0) Calcium Level 8.1 mg/dL (8.5-10.1) Magnesium Level 1.9 mg/dL (1.8-2.4) Iron Level 11 ug/dL (50-170) Total Iron Binding Capacity 151 ug/dL (250-450) Iron Saturation 7 % (15-34) Total Bilirubin 0.7 mg/dL (0.2-1.0) Aspartate Amino Transf (AST/SGOT) 92 U/L (15-37) Alanine Aminotransferase (ALT/SGPT) 34 U/L (14-59) Alkaline Phosphatase 251 U/L (46-116) Total Protein 6.5 g/dL (6.4-8.2) Albumin 1.8 g/dL (3.4-5.0) Albumin/Globulin Ratio 0.4 (1.0-1.7) Thyroid Stimulating Hormone (TSH) 0.660 uIU/mL (0.358-3.74) Test 04/20/19 11:32 Glucose (Fingerstick) 271 mg/dL (70-99) Objective Assessment pt seen, consult dictated Plan Plan of Care / YANG VILLASEÑOR MD Apr 20, 2019 15:22
--- NOTE | 2019-04-20 15:38 | RAD ---
Exam: CT abdomen and pelvis without contrast INDICATION: Nausea/vomiting, constipation, abdominal cramping TECHNIQUE: Sequential axial images through the abdomen and pelvis obtained without IV contrast. Sagittal and coronal reformatted images were reconstructed from the axial data and reviewed. Comparisons: None FINDINGS: Heart size is normal. No pericardial effusion. Patchy airspace disease at the lung bases bilaterally. Trace left-sided pleural effusion. Evaluation of solid organs is limited secondary to noncontrast technique. Nodular contour of the liver. Spleen is enlarged. Pancreas, gallbladder and adrenals are unremarkable. Kidneys demonstrate symmetric enhancement. No perinephric inflammation or hydronephrosis. 3 mm nonobstructing renal calculus noted within the mid right kidney. No ureteral calculi. Bladder is decompressed. In the left adnexa there is a 8.2 x 8.3 cm soft tissue attenuating mass which appears to abut the uterus. Uterus is otherwise unremarkable. There is a umbilical hernia which contains a short segment of small bowel. There is dilatation of proximal small bowel and decompression of the distal small bowel. Large bowel is unremarkable. Moderate amount of intra-abdominal ascites is noted. No free intra-abdominal air. Abdominal aorta has a normal course and caliber. Numerous enlarged retroperitoneal lymph nodes are noted, largest is a right common iliac node measuring 4.6 x 4.2 cm. No suspicious osseous lesions or acute fractures. IMPRESSION: 1. Small umbilical hernia containing a short segment of small bowel which is causing small bowel obstruction. Dilated loops of small bowel are seen proximally and decompressed loops distally. 2. Patchy airspace disease the lung bases favored represent pneumonia. Trace left pleural effusion. 3. Numerous enlarged retroperitoneal lymph nodes, which are nonspecific however abnormal. Recommend correlation with history of malignancy. In the absence of known causes of lymphadenopathy tissue sampling would be recommended. 4. Left adnexal mass measuring approximately 8.3 cm. Uncertain whether this is ovarian in etiology or representing a pedunculated fibroid. Initial Further evaluation with ultrasound is recommended when clinically appropriate. 5. Cirrhotic morphology of the liver with secondary sequela of portal hypertension including splenomegaly and ascites. A component of the free fluid may be also reactive to the small bowel obstruction. 6. Nonobstructing 3 mm calculus at the mid right kidney. Exposure: One or more of the following in the visualized dose reduction techniques were utilized for this examination: 1. Automated exposure control 2. Adjustment of the MA and/or KV according to patient size 3. Use of iterative of reconstructive technique Electronically signed by: Branden Coleman MD (04/20/2019 3:35 PM) [facility]
[2019-04-20] MEDS ORDERED: IV NORMAL SALINE 1000ML BAG 1,000 ML IV ONE (15:45)
--- NOTE | 2019-04-20 16:00 | NUR ---
Patient oxygen saturation in the 70's on 3L NC. Rapid response called. Pt stated "I am having a panic attack." Non-rebreather placed on patient and patient transferred to ICU. Dr. Pascual notified. Patient notified of the move. Report called to MARIANELA Sharif.
--- NOTE | 2019-04-20 16:02 | NUR ---
Wound care Wound care consult for multiple wounds. Pt has BLE lymphedema with small open areas and intact blister to LLE. Cleansed wound and applied lotion to BLE, ammonium lactate lotion ordered to be applied BID. Pt has stage III with DTI to coccyx. Cleansed area and applied Calazime cream. Pt on P500 bed, needs to be left and right turn only, pt turned with wedge but was resistive to being turned due to nausea and vomiting. Pt vomited multiple times during procedure stool scented brown vomit. RN notified of findings. WC will continue to follow for possible changes. No other wounds noted on full skin inspection.
[2019-04-20] MEDS ORDERED: PROPOFOL 100 ML IV ONE (16:42)
[2019-04-20 16:48] LABS: BASE EXCESS ABG -6 mmol/L (-3-3); HCO3 ABG 23 mmol/L (21-28); PO2 ABG 58 mmHg (65-108); SAT O2 ABG 83 % (92-99)
--- NOTE | 2019-04-20 16:52 | NUR ---
SW following pt for dc planning. Chart reviewed and discussed with RN. Pt lives at home with spouse and is self pay. Per [facility]CF[facility] pt gets SSI but is over income for Medicaid at this time. Per RN, pt has bowel obstructions. SW left healthcare and community resources with RN. ID and wound care following pt. Will continue to follow pt pending dc needs.
[2019-04-20 16:53] LABS: PCO2 ABG 60 mmHg (35-46)
[2019-04-20] MEDS ORDERED: MIDAZOLAM HCL/PF 5 MG/5 ML VIAL. ONE (17:04)
[2019-04-20] MEDS ORDERED: MIDAZOLAM HCL/PF 5 MG/5 ML VIAL. IV ONE (17:15)
[2019-04-20] MEDS ORDERED: PROPOFOL 20 ML IV ONE (17:15)
[2019-04-20] MEDS ORDERED: NALOXONE 0.4 MG/ML VIAL. IV PRN (17:15)
[2019-04-20] MEDS ORDERED: PROPOFOL 100 ML IV PRN (17:15)
[2019-04-20] MEDS ORDERED: SUCCINYLCHOLINE 200 MG/10 ML VIAL. IV ONE (17:30)
[2019-04-20] MEDS ORDERED: NOREPINEPHRIN 8MG/250ML PREMIX 250 ML IV PRN (17:30)
[2019-04-20] MEDS: NOREPINEPHRIN 8MG/250ML PREMIX 250 ML IV PRN (17:35)
[2019-04-20] MEDS ORDERED: ROCURONIUM 50 MG/5 ML VIAL. ONE (18:00)
[2019-04-20 18:12] LABS: BASE EXCESS ABG -5 mmol/L (-3-3); HCO3 ABG 20 mmol/L (21-28); PCO2 ABG 40 mmHg (35-46); PO2 ABG 79 mmHg (65-108); SAT O2 ABG 94 % (92-99)
[2019-04-20 18:16] LABS: FIO2 ABG 60
--- NOTE | 2019-04-20 18:18 | NUR ---
1620 Upon arrival pts mental status more lethargic than 2 hours previously. Pts skin color pale and flushed cheek. O2 sats 55% on the 3L. Placed on the NRB and sats only to the 70's. RT attempted to get ABG unsuccessful. Pt taken rapidly to ICU. Chante GLASS CRUSHER took report on patient. Dr Calvin on unit upon arrival with patient. COnsult placed to Dr Mari. ABG's obtains and Dr Junior called for intubation. Dr Mari called back and informed of situation. orders received. Dr Junior on unit at 1650 and gave orders for sedation and intubated patient with a 7.5 ETT. See RN note Addendum: 04/20/19 at 1824 by LIBRADO WADE RN Amended: Links added.
--- NOTE | 2019-04-20 19:30 | NUR ---
Patient's UO since Rdew placed is 40CC of dark tea cloudy urine, paged Dr Pepe. Dr Pepe returned page, notified of minimal UO, Vital signs, Levophed dose, and Echo results. Orders received for NS 500CC bolus PRN, after first bolus give Albumin 25% [id number]. See orders.
[2019-04-20] MEDS ORDERED: IV NORMAL SALINE 500ML BAG 500 ML IV PRN ×2 (19:45→23:30)
[2019-04-20] MEDS: PIPERACILLIN/TAZOBACTAM 3.375 GM in IV NORMAL SALINE 50ML 50 ML IV SCH (20:04)
--- NOTE | 2019-04-20 20:15 | NUR ---
progressive deterioration. poor gases,intubated w sedation fly cath OG. Potassium restarted from floor ad infusingstarted
[2019-04-20] MEDS: AMMONIUM LACTATE 12% TOPICAL LOTION 226GM BOTTLE. TP SCH (21:00)
--- NOTE | 2019-04-20 21:10 | RAD ---
Study: PORTABLE CHEST 1V Indication: Shortness of breath. Intubation. Comparison: 04/19/2019 Findings: Endotracheal tube tip extending into the right mainstem bronchus. Recommend retraction by approximately 5 cm. Enteric tube sidehole is below the diaphragm. The tip is below the inferior margin of the radiograph. Newly seen layering left-sided pleural effusion that is tkwvw-no-xasrmwwz in size. No discrete lobar consolidation. No pneumothorax. Bibasilar volume loss. Mildly increased interstitial markings could represent a component of pulmonary edema. Impression: 1. Endotracheal tube extending into the right mainstem bronchus. Recommend retraction by approximately 5 cm. 2. Enteric tube sidehole below the level of the diaphragm. 3. Small to moderate volume left-sided pleural effusion is newly seen from the comparison radiograph. 4. Increased lung markings could represent a component of pulmonary edema. Electronically signed by: NASH LOPEZ MD (04/20/2019 9:07 PM) [facility]
--- NOTE | 2019-04-20 21:45 | NUR ---
At 2114 patient calling out, she had removed her mitts, self extubated, and removed OG. Assisted patient 's respirations with 15L O2 via bag/mask while waiting to re-intubate. Both IV's pulled out with patient flailing around requiring new IV starts for sedation prior to intubation. After sedated with 20MG Propofol and 50MG Vecuronium, patient re-intubated with 7.5ETT by Dae GURROLA at 2134 without difficulty using glydescope--placement checked by color change CO2 detector and bilat lung sounds on auscultation. ETT taped 24 at the teeth and patient placed on vent settings of AC 16, TV 500, 100% FiO2, and PEEP 8. Dr Mari called to notify original ETT needed to be pulled back 5CM from original portable chest XRay. Notified Dr Mari of above and ETT taped at the same place as previous--RT pulled ETT back tp 20CM at the teeth and portable CXR ordered. #18 OG tube inserted without difficulty, placement checked with air instillation heard at the epigastric area and returned of brown gastric contents. KUB ordered as per protocol. Will await results. Patient's sedation changed form Propofol to Versed and Fentanyl secondary to low BP; will continue to monitor. called, updated on patients overall condition, all questions answered.
[2019-04-20] MEDS: MIDAZOLAM 100mg/100ml NS BAG 100 ML IV PRN (22:09)
--- NOTE | 2019-04-20 23:10 | NUR ---
Patient on Versed 10MG/HR and Fentanyl 50MCG/HR and patient continues to be very restless and again attempting to pull at ETT, Dr Mari paged. Dr Mari returned page, notified of poor effect of Versed/Fent for sedation, orders received to add Precedex and titrate as needed for RASS of 2-4. See orders.
[2019-04-20] MEDS ORDERED: ATROPINE 0.5 MG/5 ML DISP.SYRINGE. IV PRN (23:30)
--- NOTE | 2019-04-20 23:56 | RAD ---
Exam: Abdomen one view INDICATION: OG placement TECHNIQUE: Frontal view of the abdomen Comparisons: None FINDINGS: Enteric tube with distal end coiled in the left upper quadrant likely within the stomach. Overall paucity of bowel gas. Visualized osseous structures are unremarkable. IMPRESSION: Enteric tube with tip likely in the stomach. Electronically signed by: Branden Coleman MD (04/20/2019 11:53 PM) [facility]
[2019-04-21] VITALS (35 sets, daily range): BP systolic 76–137; BP diastolic 35–66
[2019-04-21] MEDS: DEXMEDETOMIDINE 400 MCG in IV NORMAL SALINE 100ML 96 ML IV PRN ×4 (00:08→23:03)
[2019-04-21] MEDS: PIPERACILLIN/TAZOBACTAM 3.375 GM in IV NORMAL SALINE 50ML 50 ML IV SCH ×5 (00:53→23:31)
--- NOTE | 2019-04-21 01:08 | CONS ---
DATE OF CONSULTATION: REQUESTING PHYSICIAN: Dr. Pascual. REASON FOR CONSULTATION: Sepsis. HISTORY OF PRESENT ILLNESS: This is a 63-year-old female who was admitted through ER. The patient came in with weakness and had couple of falls as she says she was walking and the knee gave out and she fell twice. The patient has been having nausea and vomiting and there was a question of coffee-ground emesis. The patient is in a very poor shape. The patient's initial lactic acid was 4.3, elevated BUN and creatinine, evidence for dehydration, elevated liver function tests. The patient received fluids, received one dose of Rocephin and on vancomycin and consult has been requested now. The patient is alert, awake, although periodically she is vomiting still. The patient just had a CAT scan done, which has not been uploaded or reported. Denies any diarrhea. Denies any chest pain or shortness of breath. She does have abdominal pain. PAST MEDICAL AND SURGICAL HISTORY: She has had , has had umbilical hernia repair done in the past, diabetes, obesity. SOCIAL HISTORY: Negative for smoking, alcohol, or drug use. ALLERGIES: No known drug allergies. CURRENT MEDICATIONS: Reviewed. REVIEW OF SYSTEMS: As per HPI, all other systems reviewed are negative. PHYSICAL EXAMINATION: GENERAL: Awake female, not in distress. VITAL SIGNS: Temperature 98.6, pulse 106, respirations 18, blood pressure 127/56. HEENT: Both pupils are round and reacting. No conjunctival lesion, no lesion in the mouth. NECK: Supple, no JVP, no lymphadenopathy. LUNGS: Clear. HEART: S1, S2 regular. ABDOMEN: Diffusely tender, no rebound or guarding. No organomegaly appreciated. Umbilical hernia present. Large pannus present. She has some yeast infection under the pannus, actually not bad. EXTREMITIES: Both lower extremities have venous insufficiency, stasis dermatitis on both the legs posteriorly. She does have stage 2 sacral decubitus. NEUROLOGIC: Alert, awake, able to communicate and moves all the extremities. No focal deficit. LABORATORY DATA: White count is 9.7, hemoglobin 12.7, platelets are 195,000. BUN and creatinine is 43 and 1.1. AST is 92, ALT is 34. Lactic acid has improved to 2.5. Urinalysis showed 11-20 wbc's, too numerous to count rbc's. Chest x-ray is not showing any acute infiltrate. CT head was unremarkable. CT abdomen and pelvis is pending. IMPRESSION: 1. Lactic acidosis. This may have been ischemic colon, but also sepsis is possible. 2. Urinary tract infection versus hematuria. 3. Poor personal hygiene. 4. Sacral decubitus. 5. Status post fall. 6. Abdominal pain. RECOMMENDATIONS: I would continue vancomycin, add Zosyn. We will check CT abdomen and pelvis, supportive care, more fluids that she can be given and we will continue to follow. Thank you very much, Dr. Pascual, for giving me the opportunity to participate in this patient's care. YANG VILLASEÑOR MD DR: VAL/jonnathan JOB#: [id number] / [id number]
[2019-04-21] MEDS ORDERED: ALBUMIN HUMAN 25% 100 ML IV ONE (01:30)
--- NOTE | 2019-04-21 01:35 | RAD ---
Study: CHEST AP ONLY Indication: Endotracheal and orogastric tube placement. Comparison: 04/20/2019 at 1816 hours. Findings: Interval retraction of the endotracheal tube which now terminates at the level of the clavicles. The orogastric tube tip and sidehole projecting over the left upper quadrant. Redemonstrated layering left-sided pleural effusion. More pronounced haziness at both lung bases relative to the prior could be related to volume loss but sequela of aspiration or pulmonary edema is also a consideration. Background increased lung markings. No pneumothorax. Impression: 1. Interval retraction of the endotracheal tube tip which now terminates at the level of the clavicles. Orogastric tube tip and sidehole projected over the left upper quadrant. 2. Redemonstrated left-sided pleural effusion. Worsening haziness of the mid to lower bilateral lungs which could be in part related to volume loss however pulmonary edema or potentially the sequela of aspiration are considerations as well. Electronically signed by: NASH LOPEZ MD (04/21/2019 1:32 AM) [facility]
--- NOTE | 2019-04-21 02:35 | NUR ---
Patient's UO continues to be extremely poor, Dr Pepe paged. Dr Pepe returned page, notified of continued low UO, low BP, and Levophed dose; orders received to give NS 1000CC bolus, when 500CC infused, start Albumin 5% 500CC TRO 2 HRS and repeat x1. See orders.
[2019-04-21] MEDS ORDERED: IV NORMAL SALINE 1000ML BAG 1,000 ML IV ONE ×2 (02:45→10:30)
--- NOTE | 2019-04-21 03:45 | NUR ---
Patient's SBP continues to be <90 with MAO <60 on Levophed 0.25MCG/KG/MIN, Dr Canales paged. Dr Canales returned page, notified of above, and orders from Dr Pepe; orders received to add Vasopressin since patient also Sever Sepsis. See orders.
[2019-04-21] MEDS: VASOPRESSIN 40 UNIT in IV DEXTROSE 5% 100ML 100 ML IV PRN ×2 (04:04→18:02)
[2019-04-21] MEDS: ALBUMIN HUMAN 5% 500 ML IV SCH ×2 (04:29→06:26)
--- NOTE | 2019-04-21 04:40 | NUR ---
Patient's BP continues to be low with addition of Vasopressin, Dr Ally conley. Dr Ally conley, notified of SBP and MAP continue to be low, orders received to start Epinephrine gtt to keep SBP>90 and MAP>60. See orders.
[2019-04-21] MEDS: METOPROLOL TARTRATE 5 MG/5 ML VIAL. IVP SCH ×5 (05:38→23:32)
[2019-04-21] MEDS: IV NORMAL SALINE 1000ML BAG 1,000 ML IV SCH ×5 (05:40→23:03)
[2019-04-21] MEDS: NOREPINEPHRIN 8MG/250ML PREMIX 250 ML IV PRN ×3 (07:51→23:04)
--- NOTE | 2019-04-21 08:20 | PDOC ---
PROGRESS NOTES History of Present Illness History of Present Illness ASSESSMENT AND PLAN: Gastrointestinal bleed, failure to thrive, multiple hypokalemia, hyponatremia, azotemia, dehydration, new onset diabetes, probable malnutrition sepsis Small umbilical hernia containing a short segment of small bowel which is causing small bowel obstruction. Dilated loops of small bowel are seen proximally and decompressed loops distally. Patchy airspace disease the lung bases favored represent pneumonia. Trace left pleural effusion. enlarged retroperitoneal lymph nodes, which are nonspecific however abnormal. Recommend correlation with history of malignancy. In the absence of known causes of lymphadenopathy tissue sampling would be recommended. Left adnexal mass measuring approximately 8.3 cm. Uncertain whether this is ovarian in etiology or representing a pedunculated fibroid. Initial Further evaluation with ultrasound is recommended when clinically appropriate. Cirrhotic morphology of the liver with secondary sequela of portal hypertension including splenomegaly and ascites. A component of the free fluid may be also reactive to the small bowel obstruction. Nonobstructing 3 mm calculus at the mid right kidney. CXR 04/21 New right internal jugular central line with tip in acceptable position Otherwise stable support lines and tubes 04/21 Bilateral interstitial and alveolar infiltrates are similar hematuria admitted. 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 urology consult 118 MIN CC TIME Vitals Vitals Vital Signs Date Time Temp Pulse Resp B/P (MAP) Pulse Ox O2 Delivery O2 Flow Rate FiO2 04/21/19 08:05 24 96 Room Air 04/20/19 17:45 129 137/92 (107) 04/20/19 14:52 98.6 3.0 98.6 Physical Exam General: Alert, Oriented X3, Cooperative, No acute distress, Other (appears uncomfortable ) Heart: Regular rate, Other (distant heart tones ) Abdomen: Normal bowel sounds, Soft, Other (obese, vague tenderness ) Extremities: Normal pulses, Other (trace bilateral edema ) Skin: No significant lesion Labs LABS Single view of the chest. 04/21/2019 9:52 AM Indication: Respiratory failure Comparison: Chest radiograph, earlier today Findings: There is an endotracheal tube in place approximately 3 cm above the juan. There is an enteric tube extending below the diaphragm likely in the proximal stomach. There is a right internal jugular central line with tip projecting over the proximal right atrium. Patchy interstitial and alveolar infiltrates are present throughout the bilateral lungs, similar to comparison study. Basilar atelectasis noted. A component of left-sided pleural effusion may be present. No pneumothorax is identified. Bony thorax is grossly unchanged. IMPRESSION: 1. New right internal jugular central line with tip in acceptable position 2. Otherwise stable support lines and tubes 3. Bilateral interstitial and alveolar infiltrates are similar Electronically signed by: Kishor Cesar MD (04/21/2019 10:19 AM) [facility] Pulmonary Valve PV Peak Velocity 93.9cm/s LEFT VENTRICLE The left ventricle is normal size. There is mild concentric left ventricular hypertrophy. Left ventricle systolic function is low normal. The Ejection Fraction is 50-55%. There is normal LV segmental wall motion. Transmitral Doppler flow pattern is abnormal. RIGHT VENTRICLE The right ventricle is normal size. There is normal right ventricular wall thickness. The right ventricular systolic function is normal. ATRIA The left atrium is mildly dilated. The right atrium size is normal. The interatrial septum is intact with no evidence for an atrial septal defect or patent foramen ovale as noted on 2-D or Doppler imaging. AORTIC VALVE The aortic valve is normal in structure and function. The aortic valve is trileaflet. Doppler and Color Flow revealed no significant aortic regurgitation. There is no significant aortic valvular stenosis. There is no aortic valvular vegetation. MITRAL VALVE The mitral valve is thickened but opens well. There is no evidence of mitral valve prolapse. There is no mitral valve stenosis. Doppler and Color Flow revealed no mitral valve regurgitation noted. TRICUSPID VALVE The tricuspid valve is normal in structure and function. Doppler and Color Flow revealed no tricuspid valve regurgitation noted. There is no tricuspid valve prolapse or vegetation. There is no tricuspid valve stenosis. PULMONIC VALVE The pulmonic valve is not well visualized. GREAT VESSELS The aortic root is normal in size. The ascending aorta is normal in size. The IVC was not visualized. PERICARDIAL EFFUSION There is no evidence of significant pericardial effusion. Critical Notification Critical Value: No <Conclusion> Left ventricle systolic function is low normal. The Ejection Fraction is 50-55%. There is normal LV segmental wall motion. Technically difficult study. Signed by : Diana Mccarthy, Electronically Approved : 04/20/2019 14:09:56 DICTATED and SIGNED BY: DIANA MCCARTHY MD DATE: 04/20/19 1403 STATUS: ADM IN ORD. PHYSICIAN: DESHAWN SALEH REASON: n/v, constipaiton, abd cramping PROCEDURE: CT ABDOMEN PELVIS WO CONTRAST Exam: CT abdomen and pelvis without contrast INDICATION: Nausea/vomiting, constipation, abdominal cramping TECHNIQUE: Sequential axial images through the abdomen and pelvis obtained without IV contrast. Sagittal and coronal reformatted images were reconstructed from the axial data and reviewed. Comparisons: None FINDINGS: Heart size is normal. No pericardial effusion. Patchy airspace disease at the lung bases bilaterally. Trace left-sided pleural effusion. Evaluation of solid organs is limited secondary to noncontrast technique. Nodular contour of the liver. Spleen is enlarged. Pancreas, gallbladder and adrenals are unremarkable. Kidneys demonstrate symmetric enhancement. No perinephric inflammation or hydronephrosis. 3 mm nonobstructing renal calculus noted within the mid right kidney. No ureteral calculi. Bladder is decompressed. In the left adnexa there is a 8.2 x 8.3 cm soft tissue attenuating mass which appears to abut the uterus. Uterus is otherwise unremarkable. There is a umbilical hernia which contains a short segment of small bowel. There is dilatation of proximal small bowel and decompression of the distal small bowel. Large bowel is unremarkable. Moderate amount of intra-abdominal ascites is noted. No free intra-abdominal air. Abdominal aorta has a normal course and caliber. Numerous enlarged retroperitoneal lymph nodes are noted, largest is a right common iliac node measuring 4.6 x 4.2 cm. No suspicious osseous lesions or acute fractures. IMPRESSION: 1. Small umbilical hernia containing a short segment of small bowel which is causing small bowel obstruction. Dilated loops of small bowel are seen proximally and decompressed loops distally. 2. Patchy airspace disease the lung bases favored represent pneumonia. Trace left pleural effusion. 3. Numerous enlarged retroperitoneal lymph nodes, which are nonspecific however abnormal. Recommend correlation with history of malignancy. In the absence of known causes of lymphadenopathy tissue sampling would be recommended. 4. Left adnexal mass measuring approximately 8.3 cm. Uncertain whether this is ovarian in etiology or representing a pedunculated fibroid. Initial Further evaluation with ultrasound is recommended when clinically appropriate. 5. Cirrhotic morphology of the liver with secondary sequela of portal hypertension including splenomegaly and ascites. A component of the free fluid may be also reactive to the small bowel obstruction. 6. Nonobstructing 3 mm calculus at the mid right kidney. Exposure: One or more of the following in the visualized dose reduction techniques were utilized for this examination: 1. Automated exposure control 2. Adjustment of the MA and/or KV according to patient size 3. Use of iterative of reconstructive technique Electronically signed by: Branden Coleman MD (04/20/2019 3:35 PM) [facility] Laboratory Tests Test 04/20/19 10:15 04/20/19 10:30 04/20/19 11:32 04/20/19 16:45 Glucose (Fingerstick) 255 mg/dL (70-99) 271 mg/dL (70-99) White Blood Count 9.7 x10^3/uL (4.0-11.0) Red Blood Count 5.63 x10^6/uL (3.50-5.40) Hemoglobin 12.7 g/dL (12.0-15.5) Hematocrit 39.2 % (36.0-47.0) Mean Corpuscular Volume 70 fL (79-100) Mean Corpuscular Hemoglobin 23 pg (25-35) Mean Corpuscular Hemoglobin Concent 33 g/dL (31-37) Red Cell Distribution Width 17.9 % (11.5-14.5) Platelet Count 195 x10^3/uL (140-400) Neutrophils (%) (Auto) 81 % (31-73) Lymphocytes (%) (Auto) 13 % (24-48) Monocytes (%) (Auto) 6 % (0-9) Eosinophils (%) (Auto) 1 % (0-3) Basophils (%) (Auto) 0 % (0-3) Neutrophils # (Auto) 7.8 x10^3/uL (1.8-7.7) Lymphocytes # (Auto) 1.2 x10^3/uL (1.0-4.8) Monocytes # (Auto) 0.5 x10^3/uL (0.0-1.1) Eosinophils # (Auto) 0.1 x10^3/uL (0.0-0.7) Basophils # (Auto) 0.0 x10^3/uL (0.0-0.2) Sodium Level 132 mmol/L (136-145) Potassium Level 3.4 mmol/L (3.5-5.1) Chloride Level 95 mmol/L (98-107) Carbon Dioxide Level 26 mmol/L (21-32) Anion Gap 11 (6-14) Blood Urea Nitrogen 43 mg/dL (7-20) Creatinine 1.1 mg/dL (0.6-1.0) Estimated GFR (Cockcroft-Gault) 50.0 BUN/Creatinine Ratio 39 (6-20) Glucose Level 277 mg/dL (70-99) Lactic Acid Level 2.5 mmol/L (0.4-2.0) Calcium Level 8.1 mg/dL (8.5-10.1) Magnesium Level 1.9 mg/dL (1.8-2.4) Iron Level 11 ug/dL (50-170) Total Iron Binding Capacity 151 ug/dL (250-450) Iron Saturation 7 % (15-34) Total Bilirubin 0.7 mg/dL (0.2-1.0) Aspartate Amino Transf (AST/SGOT) 92 U/L (15-37) Alanine Aminotransferase (ALT/SGPT) 34 U/L (14-59) Alkaline Phosphatase 251 U/L (46-116) Total Protein 6.5 g/dL (6.4-8.2) Albumin 1.8 g/dL (3.4-5.0) Albumin/Globulin Ratio 0.4 (1.0-1.7) Thyroid Stimulating Hormone (TSH) 0.660 uIU/mL (0.358-3.74) O2 Saturation 83 % (92-99) Arterial Blood pH 7.21 (7.35-7.45) Arterial Blood pCO2 at Patient Temp 60 mmHg (35-46) Arterial Blood pO2 at Patient Temp 58 mmHg (65-108) Arterial Blood HCO3 23 mmol/L (21-28) Arterial Blood Base Excess -6 mmol/L (-3-3) Test 04/20/19 18:10 04/20/19 19:25 04/21/19 03:41 O2 Saturation 94 % (92-99) Arterial Blood pH 7.33 (7.35-7.45) Arterial Blood pCO2 at Patient Temp 40 mmHg (35-46) Arterial Blood pO2 at Patient Temp 79 mmHg (65-108) Arterial Blood HCO3 20 mmol/L (21-28) Arterial Blood Base Excess -5 mmol/L (-3-3) FiO2 60 Glucose (Fingerstick) 263 mg/dL (70-99) 181 mg/dL (70-99) Assessment and Plan Assessmemt and Plan Problems Medical Problems: (1) Diabetes Status: Acute (2) Fall Status: Acute (3) Severe sepsis Status: Acute (4) UTI (urinary tract infection) Status: Acute (5) Weakness Status: Acute Comment Review of Relevant I have reviewed the following items ashok (where applicable) has been applied. Labs Laboratory Tests Test 04/19/19 18:08 04/19/19 18:19 04/19/19 21:45 04/19/19 22:41 Urine Collection Type U cath Urine Color Yani Urine Clarity Cloudy Urine pH 5.0 Urine Specific [place] 1.025 Urine Protein 30 mg/dL (NEG-TRACE) Urine Glucose (UA) 100 mg/dL (NEG) Urine Ketones (Stick) Trace mg/dL (NEG) Urine Blood Large (NEG) Urine Nitrite Positive (NEG) Urine Bilirubin Large (NEG) Urine Urobilinogen Dipstick 2.0 mg/dL (0.2 mg/dL) Urine Leukocyte Esterase Moderate (NEG) Urine RBC Tntc /HPF (0-2) Urine WBC 11-20 /HPF (0-4) Urine Squamous Epithelial Cells Few /LPF Urine Amorphous Sediment Present /HPF Urine Bacteria Many /HPF (0-FEW) Urine Hyaline Casts Moderate /HPF Urine Mucus Mod /LPF White Blood Count 10.8 x10^3/uL (4.0-11.0) Red Blood Count 5.77 x10^6/uL (3.50-5.40) Hemoglobin 13.0 g/dL (12.0-15.5) Hematocrit 40.7 % (36.0-47.0) Mean Corpuscular Volume 71 fL (79-100) Mean Corpuscular Hemoglobin 23 pg (25-35) Mean Corpuscular Hemoglobin Concent 32 g/dL (31-37) Red Cell Distribution Width 17.5 % (11.5-14.5) Platelet Count 244 x10^3/uL (140-400) Neutrophils (%) (Auto) 84 % (31-73) Lymphocytes (%) (Auto) 10 % (24-48) Monocytes (%) (Auto) 6 % (0-9) Eosinophils (%) (Auto) 0 % (0-3) Basophils (%) (Auto) 0 % (0-3) Neutrophils # (Auto) 9.1 x10^3/uL (1.8-7.7) Lymphocytes # (Auto) 1.1 x10^3/uL (1.0-4.8) Monocytes # (Auto) 0.6 x10^3/uL (0.0-1.1) Eosinophils # (Auto) 0.0 x10^3/uL (0.0-0.7) Basophils # (Auto) 0.0 x10^3/uL (0.0-0.2) Platelet Estimate Adequate (ADEQUATE) Hypochromasia Mod Anisocytosis Slight Microcytosis Mod Sodium Level 127 mmol/L (136-145) Potassium Level 4.0 mmol/L (3.5-5.1) Chloride Level 90 mmol/L (98-107) Carbon Dioxide Level 24 mmol/L (21-32) Anion Gap 13 (6-14) Blood Urea Nitrogen 39 mg/dL (7-20) Creatinine 1.3 mg/dL (0.6-1.0) Estimated GFR (Cockcroft-Gault) 41.2 BUN/Creatinine Ratio 30 (6-20) Glucose Level 373 mg/dL (70-99) Lactic Acid Level 4.3 mmol/L (0.4-2.0) 2.7 mmol/L (0.4-2.0) Calcium Level 8.6 mg/dL (8.5-10.1) Total Bilirubin 1.0 mg/dL (0.2-1.0) Aspartate Amino Transf (AST/SGOT) 87 U/L (15-37) Alanine Aminotransferase (ALT/SGPT) 38 U/L (14-59) Alkaline Phosphatase 249 U/L (46-116) Creatine Kinase 115 U/L (26-192) Total Protein 7.3 g/dL (6.4-8.2) Albumin 2.1 g/dL (3.4-5.0) Albumin/Globulin Ratio 0.4 (1.0-1.7) Procalcitonin 25.73 ng/mL (0.00-0.10) Glucose (Fingerstick) 311 mg/dL (70-99) Test 04/20/19 02:43 04/20/19 07:28 9/5/19 10:15 04/20/19 10:30 Glucose (Fingerstick) 312 mg/dL (70-99) 280 mg/dL (70-99) 255 mg/dL (70-99) White Blood Count 9.7 x10^3/uL (4.0-11.0) Red Blood Count 5.63 x10^6/uL (3.50-5.40) Hemoglobin 12.7 g/dL (12.0-15.5) Hematocrit 39.2 % (36.0-47.0) Mean Corpuscular Volume 70 fL (79-100) Mean Corpuscular Hemoglobin 23 pg (25-35) Mean Corpuscular Hemoglobin Concent 33 g/dL (31-37) Red Cell Distribution Width 17.9 % (11.5-14.5) Platelet Count 195 x10^3/uL (140-400) Neutrophils (%) (Auto) 81 % (31-73) Lymphocytes (%) (Auto) 13 % (24-48) Monocytes (%) (Auto) 6 % (0-9) Eosinophils (%) (Auto) 1 % (0-3) Basophils (%) (Auto) 0 % (0-3) Neutrophils # (Auto) 7.8 x10^3/uL (1.8-7.7) Lymphocytes # (Auto) 1.2 x10^3/uL (1.0-4.8) Monocytes # (Auto) 0.5 x10^3/uL (0.0-1.1) Eosinophils # (Auto) 0.1 x10^3/uL (0.0-0.7) Basophils # (Auto) 0.0 x10^3/uL (0.0-0.2) Sodium Level 132 mmol/L (136-145) Potassium Level 3.4 mmol/L (3.5-5.1) Chloride Level 95 mmol/L (98-107) Carbon Dioxide Level 26 mmol/L (21-32) Anion Gap 11 (6-14) Blood Urea Nitrogen 43 mg/dL (7-20) Creatinine 1.1 mg/dL (0.6-1.0) Estimated GFR (Cockcroft-Gault) 50.0 BUN/Creatinine Ratio 39 (6-20) Glucose Level 277 mg/dL (70-99) Lactic Acid Level 2.5 mmol/L (0.4-2.0) Calcium Level 8.1 mg/dL (8.5-10.1) Magnesium Level 1.9 mg/dL (1.8-2.4) Iron Level 11 ug/dL (50-170) Total Iron Binding Capacity 151 ug/dL (250-450) Iron Saturation 7 % (15-34) Total Bilirubin 0.7 mg/dL (0.2-1.0) Aspartate Amino Transf (AST/SGOT) 92 U/L (15-37) Alanine Aminotransferase (ALT/SGPT) 34 U/L (14-59) Alkaline Phosphatase 251 U/L (46-116) Total Protein 6.5 g/dL (6.4-8.2) Albumin 1.8 g/dL (3.4-5.0) Albumin/Globulin Ratio 0.4 (1.0-1.7) Thyroid Stimulating Hormone (TSH) 0.660 uIU/mL (0.358-3.74) Test 04/20/19 11:32 04/20/19 16:45 04/20/19 18:10 04/20/19 19:25 Glucose (Fingerstick) 271 mg/dL (70-99) 263 mg/dL (70-99) O2 Saturation 83 % (92-99) 94 % (92-99) Arterial Blood pH 7.21 (7.35-7.45) 7.33 (7.35-7.45) Arterial Blood pCO2 at Patient Temp 60 mmHg (35-46) 40 mmHg (35-46) Arterial Blood pO2 at Patient Temp 58 mmHg (65-108) 79 mmHg (65-108) Arterial Blood HCO3 23 mmol/L (21-28) 20 mmol/L (21-28) Arterial Blood Base Excess -6 mmol/L (-3-3) -5 mmol/L (-3-3) FiO2 60 Test 04/21/19 03:41 Glucose (Fingerstick) 181 mg/dL (70-99) Laboratory Tests Test 04/20/19 10:15 04/20/19 10:30 04/20/19 11:32 04/20/19 16:45 Glucose (Fingerstick) 255 mg/dL (70-99) 271 mg/dL (70-99) White Blood Count 9.7 x10^3/uL (4.0-11.0) Red Blood Count 5.63 x10^6/uL (3.50-5.40) Hemoglobin 12.7 g/dL (12.0-15.5) Hematocrit 39.2 % (36.0-47.0) Mean Corpuscular Volume 70 fL (79-100) Mean Corpuscular Hemoglobin 23 pg (25-35) Mean Corpuscular Hemoglobin Concent 33 g/dL (31-37) Red Cell Distribution Width 17.9 % (11.5-14.5) Platelet Count 195 x10^3/uL (140-400) Neutrophils (%) (Auto) 81 % (31-73) Lymphocytes (%) (Auto) 13 % (24-48) Monocytes (%) (Auto) 6 % (0-9) Eosinophils (%) (Auto) 1 % (0-3) Basophils (%) (Auto) 0 % (0-3) Neutrophils # (Auto) 7.8 x10^3/uL (1.8-7.7) Lymphocytes # (Auto) 1.2 x10^3/uL (1.0-4.8) Monocytes # (Auto) 0.5 x10^3/uL (0.0-1.1) Eosinophils # (Auto) 0.1 x10^3/uL (0.0-0.7) Basophils # (Auto) 0.0 x10^3/uL (0.0-0.2) Sodium Level 132 mmol/L (136-145) Potassium Level 3.4 mmol/L (3.5-5.1) Chloride Level 95 mmol/L (98-107) Carbon Dioxide Level 26 mmol/L (21-32) Anion Gap 11 (6-14) Blood Urea Nitrogen 43 mg/dL (7-20) Creatinine 1.1 mg/dL (0.6-1.0) Estimated GFR (Cockcroft-Gault) 50.0 BUN/Creatinine Ratio 39 (6-20) Glucose Level 277 mg/dL (70-99) Lactic Acid Level 2.5 mmol/L (0.4-2.0) Calcium Level 8.1 mg/dL (8.5-10.1) Magnesium Level 1.9 mg/dL (1.8-2.4) Iron Level 11 ug/dL (50-170) Total Iron Binding Capacity 151 ug/dL (250-450) Iron Saturation 7 % (15-34) Total Bilirubin 0.7 mg/dL (0.2-1.0) Aspartate Amino Transf (AST/SGOT) 92 U/L (15-37) Alanine Aminotransferase (ALT/SGPT) 34 U/L (14-59) Alkaline Phosphatase 251 U/L (46-116) Total Protein 6.5 g/dL (6.4-8.2) Albumin 1.8 g/dL (3.4-5.0) Albumin/Globulin Ratio 0.4 (1.0-1.7) Thyroid Stimulating Hormone (TSH) 0.660 uIU/mL (0.358-3.74) O2 Saturation 83 % (92-99) Arterial Blood pH 7.21 (7.35-7.45) Arterial Blood pCO2 at Patient Temp 60 mmHg (35-46) Arterial Blood pO2 at Patient Temp 58 mmHg (65-108) Arterial Blood HCO3 23 mmol/L (21-28) Arterial Blood Base Excess -6 mmol/L (-3-3) Test 04/20/19 18:10 04/20/19 19:25 04/21/19 03:41 O2 Saturation 94 % (92-99) Arterial Blood pH 7.33 (7.35-7.45) Arterial Blood pCO2 at Patient Temp 40 mmHg (35-46) Arterial Blood pO2 at Patient Temp 79 mmHg (65-108) Arterial Blood HCO3 20 mmol/L (21-28) Arterial Blood Base Excess -5 mmol/L (-3-3) FiO2 60 Glucose (Fingerstick) 263 mg/dL (70-99) 181 mg/dL (70-99) Microbiology 04/19/19 Blood Culture - Final, Complete Medications Current Medications Sodium Chloride 1,000 ml @ 0 mls/hr 1X ONCE IV Last administered on 04/19/19at 20:10; Start 04/19/19 at 18:45; Stop 04/19/19 at 18:46; Status DC Ceftriaxone Sodium (Rocephin) 1 gm 1X ONCE IVP Last administered on 04/19/19at 19:17; Start 04/19/19 at 18:45; Stop 04/19/19 at 18:46; Status DC Sodium Chloride 1,560 ml @ 1,560 mls/hr Q1H IV ; Start 04/19/19 at 19:03; Status Cancel Vancomycin HCl (Vanco Per Pharmacy) 1 each PRN DAILY PRN MC SEE COMMENTS Last administered on 04/20/19at 14:29; Start 04/19/19 at 19:15 Vancomycin HCl 2 gm/Sodium Chloride 500 ml @ 250 mls/hr 1X ONCE IV Last administered on 04/19/19at 20:01; Start 04/19/19 at 19:15; Stop 04/19/19 at 21:14; Status DC Sodium Chloride 1,000 ml @ 1,560 mls/hr Q39M IV Last administered on 04/19/19at 19:17; Start 04/19/19 at 19:15; Stop 04/19/19 at 20:03; Status DC Ondansetron HCl (Zofran) 4 mg PRN Q8HRS PRN IV NAUSEA/VOMITING Last administered on 04/20/19 09:36; Start 04/19/19 at 19:30; Stop 04/20/19 at 10:00; Status DC Acetaminophen (Tylenol) 650 mg PRN Q4HRS PRN PO FEVER; Start 04/19/19 at 19:30; Stop 04/20/19 at 19:29; Status DC Insulin Human Lispro (HumaLOG) 0-7 UNITS TIDWMEALS SQ Last administered on 04/20/19at 19:52; Start 04/20/19 at 08:00; Stop 04/21/19 at 07:48; Status DC Dextrose (Dextrose 50%-Water Syringe) 12.5 gm PRN Q15MIN PRN IV SEE COMMENTS; Start 04/19/19 at 19:30 Dextrose 250 ml PRN Q15MIN PRN IV SEE COMMENTS; Start 04/19/19 at 19:30 Vancomycin HCl 1.5 gm/Sodium Chloride 500 ml @ 250 mls/hr Q12H IV Last administered on 04/20/19at 20:04; Start 04/20/19 at 08:00 Vancomycin HCl (Vancomycin Trough Level) 1 each 1X ONCE MC ; Start 04/21/19 at 07:30; Stop 04/21/19 at 07:31; Status DC Sodium Chloride 1,000 ml @ 80 mls/hr [id number] IV Last administered on 9/5/19at 02:46; Start 04/20/19 at 02:30; Stop 04/20/19 at 11:23; Status DC Insulin Human Lispro (HumaLOG) 4 units 1X ONCE SQ Last administered on 04/20/19at 04:04; Start 04/20/19 at 03:15; Stop 04/20/19 at 03:16; Status DC Ondansetron HCl (Zofran) 4 mg PRN Q6HRS PRN IV NAUSEA/VOMITING Last administered on 04/20/19at 16:04; Start 04/20/19 at 10:00 Sodium Chloride 500 ml @ 500 mls/hr 1X ONCE IV Last administered on 04/20/19at 11:30; Start 04/20/19 at 11:15; Stop 04/20/19 at 12:14; Status DC Potassium Chloride (Klor-Con) 40 meq 1X ONCE PO ; Start 04/20/19 at 11:30; Stop 04/20/19 at 11:31; Status Cancel Sodium Chloride 1,000 ml @ 150 mls/hr Q6H40M IV Last administered on 04/21/19at 05:40; Start 04/20/19 at 11:30 Pantoprazole Sodium (PROTONIX VIAL for IV PUSH) 40 mg DAILYAC IVP Last administered on 04/20/19at 12:58; Start 04/20/19 at 12:30 Potassium Chloride/Water 100 ml @ 100 mls/hr Q1H IV Last administered on 04/21/19at 07:22; Start 04/20/19 at 12:00; Stop 04/20/19 at 15:59; Status DC Metoprolol Tartrate (Lopressor) 25 mg BID PO ; Start 04/20/19 at 14:00; Stop 04/20/19 at 13:34; Status DC Metoprolol Tartrate (Lopressor Vial) 2.5 mg Q6HRS IVP Last administered on 04/20/19at 14:28; Start 04/20/19 at 14:30 Piperacillin Sod/ Tazobactam Sod 3.375 gm/Sodium Chloride 50 ml @ 100 mls/hr Q6HRS IV Last administered on 04/21/19at 05:53; Start 04/20/19 at 18:00 Sodium Chloride 1,000 ml @ 0 mls/hr 1X ONCE IV ; Start 04/20/19 at 15:45; Stop 04/20/19 at 15:49; Status DC Lactic Acid (Lac-Hydrin) 1 gauri BID TP ; Start 04/20/19 at 21:00 Lorazepam (Ativan Inj) 1 mg PRN Q4HRS PRN IV ANXIETY / AGITATION; Start 04/20/19 at 16:15 Lorazepam (Ativan Inj) 1 mg PRN 1X ONCE IV ; Start 04/20/19 at 16:15; Stop 04/20/19 at 16:16; Status DC Propofol 100 ml @ As Directed STK-MED ONCE IV ; Start 04/20/19 at 16:42; Stop 04/20/19 at 16:42; Status DC Norepinephrine Bitartrate 250 ml @ 21 mls/hr CONT PRN IV SEE I/O RECORD Last administered on 04/21/19at 07:51; Start 04/20/19 at 17:15 Midazolam HCl (Versed) 5 mg STK-MED ONCE .ROUTE ; Start 04/20/19 at 17:04; Stop 04/20/19 at 17:05; Status DC Propofol 20 ml @ 0 mls/hr 1X ONCE IV Last administered on 04/20/19at 17:38; Start 04/20/19 at 17:15; Stop 04/20/19 at 17:16; Status DC Succinylcholine Chloride (Anectine) 80 mg 1X ONCE IV Last administered on 04/20/19at 17:36; Start 04/20/19 at 17:30; Stop 04/20/19 at 17:31; Status DC Midazolam HCl (Versed) 5 mg 1X ONCE IV Last administered on 04/20/19at 17:38; Start 04/20/19 at 17:15; Stop 04/20/19 at 17:19; Status DC Midazolam HCl 100 ml @ 5 mls/hr CONT PRN IV SEE I/O RECORD Last administered on 04/20/19at 22:10; Start 04/20/19 at 17:15 Propofol 100 ml @ 1.69 mls/hr CONT PRN IV SEE I/O RECORD Last administered on 04/20/19at 17:36; Start 04/20/19 at 17:15 Fentanyl Citrate 30 ml @ 0 mls/hr CONT PRN PRN IV PER PROTOCOL Last administere d on 04/21/19at 06:28; Start 04/20/19 at 17:15 Naloxone HCl (Narcan) 0.4 mg PRN Q2MIN PRN IV SEE INSTRUCTIONS; Start 04/20/19 at 17:15 Sodium Chloride 1,000 ml @ 25 mls/hr Q24H IV ; Start 04/20/19 at 17:12 Norepinephrine Bitartrate 250 ml @ 21.129 mls/ hr CONT PRN IV SEE I/O RECORD; Start 04/20/19 at 17:30; Status UNV Sodium Chloride 500 ml @ 500 mls/hr PRN Q1HR PRN IV LOW UO Last administered on 04/20/19at 19:52; Start 04/20/19 at 19:45 Dexmedetomidine HCl 400 mcg/ Sodium Chloride 100 ml @ 0 mls/hr CONT PRN IV SEDATION Last administered on 04/21/19at 07:49; Start 04/20/19 at 23:30 Sodium Chloride 500 ml @ 500 mls/hr 1X PRN PRN IV PER PROTOCOL; Start 04/20/19 at 23:30 Atropine Sulfate (ATROPINE 0.5mg SYRINGE) 0.5 mg PRN Q5MIN PRN IV SEE COMMENTS; Start 04/20/19 at 23:30 Albumin Human 100 ml @ 100 mls/hr 1X ONCE IV Last administered on 04/21/19at 01:34; Start 04/21/19 at 01:30; Stop 04/21/19 at 02:29; Status DC Sodium Chloride 1,000 ml @ 1,000 mls/hr 1X ONCE IV Last administered on 04/21/19at 05:39; Start 04/21/19 at 02:45; Stop 04/21/19 at 03:44; Status DC Albumin Human 500 ml @ 250 mls/hr Q2HR IV Last administered on 04/21/19at 06:28; Start 04/21/19 at 04:00; Stop 04/21/19 at 07:00; Status DC Vasopressin 40 unit/Dextrose 102 ml @ 6 mls/hr CONT PRN IV SEE I/O RECORD Last administered on 04/21/19at 04:06; Start 04/21/19 at 04:00 Epinephrine HCl 4 mg/Sodium Chloride 254 ml @ 42.935 mls/ hr CONT PRN IV SEE I/O RECORD; Start 04/21/19 at 05:00 Insulin Human Lispro (HumaLOG) 0-7 UNITS Q6HRS SQ ; Start 04/21/19 at 12:00 Active Scripts Active Reported No Known Medications Prior To Admisstion (Info) Each 1 Each 1X Vitals/I & O Vital Sign - Last 24 Hours 04/20/19 04/20/19 04/20/19 04/20/19 10:44 14:28 14:52 16:45 Temp 97.6 98.6 97.6 98.6 Pulse 105 125 106 126 Resp 20 18 25 B/P (MAP) 126/75 (92) 128/57 127/56 (79) 119/68 (85) Pulse Ox 94 97 O2 Delivery Room Air Nasal Cannula NonRebreather Mask O2 Flow Rate 3.0 04/20/19 04/20/19 04/20/19 04/20/19 17:00 17:00 17:15 17:30 Pulse 130 130 128 Resp 22 20 B/P (MAP) 121/67 (85) 151/79 (103) 139/72 (94) Pulse Ox 98 99 98 O2 Delivery Ventilator Ventilator Ventilator Ventilator 04/20/19 04/20/19 04/20/19 04/20/19 17:45 18:14 20:00 21:37 Pulse 129 Resp 26 B/P (MAP) 137/92 (107) Pulse Ox 98 98 98 90 O2 Delivery Ventilator Ventilator Ventilator Ventilator 04/20/19 04/20/19 04/21/19 04/21/19 22:10 23:20 01:41 03:43 Resp 24 Pulse Ox 96 99 97 93 O2 Delivery Ventilator Ventilator Ventilator Ventilator 04/21/19 04/21/19 04/21/19 04/21/19 05:49 06:28 08:05 08:05 Resp 24 24 Pulse Ox 98 40 40 96 O2 Delivery Ventilator Ventilator Room Air Room Air Intake and Output 04/20/19 04/20/19 04/21/19 15:00 23:00 07:00 Output Total 400 ml Balance -400 ml ASHLY SIEGEL MD Apr 21, 2019 08:20
[2019-04-21 08:24] LABS: HEMOGLOBIN 13.9 g/dL (12.0-15.5); RED BLOOD COUNT 6.08 x10^6/uL (3.50-5.40); RED CELL DISTRIBUTION WIDTH 18.5 % (11.5-14.5); WHITE BLOOD COUNT 17.2 x10^3/uL (4.0-11.0)
--- NOTE | 2019-04-21 08:39 | HP ---
ADMIT DATE: 04/19/2019 CHIEF COMPLAINT: Weakness. HISTORY OF PRESENT ILLNESS: The patient is a pleasant elderly female who presented with weakness with some mental status change. We did an evaluation in the ER; we have known she has got diabetes, new onset; UTI; and severe sepsis. She has got coffee-ground emesis now, she is hypotensive. She is very poorly kept her skin on her legs, there is hyperkeratotic and dirty. We suspect she has been stuck in bed for some time, not sure how she has been able to take care of herself. She states she lives at home with her who is 90 years old, but even she agrees that she probably needs penitentiary care placement. We are going to admit the patient, give her some IV antibiotics and fluids and consult GI and get social contact worker on board to arrange long-term care. PAST MEDICAL HISTORY: Diabetes, hypertension and . ALLERGIES: None. FAMILY HISTORY: Hypertension. SOCIAL HISTORY: She lives at home with her . She does not drink, smoke or take drugs. 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 Her is retired as well. MEDICATIONS: Reviewed, please refer to the MRAD. REVIEW OF SYSTEMS: GENERAL: No history of weight change, weakness or fevers. SKIN: She complains of severe flaking of the skin on her legs and states she cannot get out of bed to clean herself. EYES: No blurred, double or loss of vision. NOSE AND THROAT: No history of nosebleeds, hoarseness or sore throat. HEART: No history of palpitations, chest pain or shortness of breath on exertion. LUNGS: Denies cough, hemoptysis, wheezing or shortness of breath. GASTROINTESTINAL: She complains of nausea and vomiting. GENITOURINARY: She complains of dysuria. NEUROLOGIC: She complains of severe weakness. PSYCHIATRIC: She complains of depression. ENDOCRINE: No history of heat or cold intolerance, polyuria or polydipsia. EXTREMITIES: She complains of severe swelling. PHYSICAL EXAMINATION: VITALS: Within normal limits and are stable. GENERAL: She appears disheveled and overweight and poorly kept, her legs are very dirty. Her feet are full of hyperkeratotic skin. HEENT: She has some excoriations on the right side of her face. NECK: Supple, no JVD, no thyromegaly was noted. LUNGS: She has some slight crackles. HEART: RRR, S1, S2 present. Peripheral pulses intact, no obvious murmurs were noted. ABDOMEN: The abdomen is distended and obese with decreased bowel sounds. EXTREMITIES: Her feet are hyperkeratotic and poorly kept. NEUROLOGIC: Normal speech, normal tone. A & O x3, moves all extremities, no obvious focal deficits. PSYCHIATRIC: She is depressed. SKIN: Her skin is very poorly kept and full of hyperkeratotic lesions on her feet. VASCULAR: Good capillary refill, neurovascular bundle appears to be intact. LABORATORY DATA: White count is 9, hemoglobin 12.7 and platelets 195. Electrolytes: Sodium 132, potassium 3.4, chloride 95, bicarbonate 26, BUN 43, creatinine 1.1, glucose 277. Anion gap is normal at 11. Albumin is low at 1.8. ASSESSMENT AND PLAN: Gastrointestinal bleed, failure to thrive, multiple medical issues including hypokalemia, hyponatremia, azotemia, dehydration, new onset diabetes, probable malnutrition and overall just unable to take care of herself at home, suspect she is septic as well. The patient has been admitted. We will give her IV fluids, IV antibiotics, consult GI, consult Cardiology, cardiac monitoring, consult Infectious Disease, DVT prophylaxis, social contact worker consult for long-term care, home meds. PROGNOSIS: Long-term guarded. CHRIS PHILLIPS DO DR: SHARLA/jonnathan JOB#: [id number] / [id number]
[2019-04-21 08:55] LABS: VANC TR 26.2 mcg/mL (10.0-20.0)
[2019-04-21] MEDS: PANTOPRAZOLE IV PUSH 40 MG VIAL. IVP SCH (09:04)
[2019-04-21] MEDS: VANCOMYCIN 1.5 GM in IV NORMAL SALINE 500ML BAG 500 ML IV SCH (09:05)
[2019-04-21 09:11] LABS: ALBUMIN 2.7 g/dL (3.4-5.0); ALBUMIN/GLOBULIN RATIO 0.7 (1.0-1.7); CALCIUM 8.1 mg/dL (8.5-10.1); CREATININE 1.3 mg/dL (0.6-1.0); GFR 41.2; POTASSIUM 4.4 mmol/L (3.5-5.1); TOTAL BILIRUBIN 1.3 mg/dL (0.2-1.0); TOTAL PROTEIN 6.5 g/dL (6.4-8.2)
[2019-04-21 09:27] LABS: BASE EXCESS ABG -10 mmol/L (-3-3); HCO3 ABG 16 mmol/L (21-28); PCO2 ABG 32 mmHg (35-46); PO2 ABG 147 mmHg (65-108); SAT O2 ABG 99 % (92-99)
[2019-04-21 09:31] LABS: FIO2 ABG 80
--- NOTE | 2019-04-21 09:42 | PDOC ---
Infectious Disease Note Subjective Subjective events noted, now in ICU intubated on vent and on vasopressors ROS ROS no n/v/d/fever Vital Sign Vital Signs Vital Signs Date Time Temp Pulse Resp B/P (MAP) Pulse Ox O2 Delivery O2 Flow Rate FiO2 04/21/19 08:57 97 Ventilator 04/21/19 08:05 24 04/20/19 17:45 129 137/92 (107) 04/20/19 14:52 98.6 3.0 98.6 Physical Exam PHYSICAL EXAM GENERAL: sedated on vent VITAL SIGNS: on vasopressors HEENT: Both pupils are round and reacting. No conjunctival lesion, no lesion in the mouth. NECK: Supple, no JVP, no lymphadenopathy. LUNGS: Clear. HEART: S1, S2 regular. ABDOMEN: Diffusely tender, no rebound or guarding. No organomegaly appreciated. Umbilical hernia present. Large pannus present. She has some yeast infection under the pannus, actually not bad. EXTREMITIES: Both lower extremities have venous insufficiency, stasis dermatitis on both the legs posteriorly. She does have stage 2 sacral decubitus. NEUROLOGIC: sedated on vent Labs Lab Laboratory Tests Test 04/20/19 10:15 04/20/19 10:30 04/20/19 11:32 04/20/19 16:45 Glucose (Fingerstick) 255 mg/dL (70-99) 271 mg/dL (70-99) White Blood Count 9.7 x10^3/uL (4.0-11.0) Red Blood Count 5.63 x10^6/uL (3.50-5.40) Hemoglobin 12.7 g/dL (12.0-15.5) Hematocrit 39.2 % (36.0-47.0) Mean Corpuscular Volume 70 fL (79-100) Mean Corpuscular Hemoglobin 23 pg (25-35) Mean Corpuscular Hemoglobin Concent 33 g/dL (31-37) Red Cell Distribution Width 17.9 % (11.5-14.5) Platelet Count 195 x10^3/uL (140-400) Neutrophils (%) (Auto) 81 % (31-73) Lymphocytes (%) (Auto) 13 % (24-48) Monocytes (%) (Auto) 6 % (0-9) Eosinophils (%) (Auto) 1 % (0-3) Basophils (%) (Auto) 0 % (0-3) Neutrophils # (Auto) 7.8 x10^3/uL (1.8-7.7) Lymphocytes # (Auto) 1.2 x10^3/uL (1.0-4.8) Monocytes # (Auto) 0.5 x10^3/uL (0.0-1.1) Eosinophils # (Auto) 0.1 x10^3/uL (0.0-0.7) Basophils # (Auto) 0.0 x10^3/uL (0.0-0.2) Sodium Level 132 mmol/L (136-145) Potassium Level 3.4 mmol/L (3.5-5.1) Chloride Level 95 mmol/L (98-107) Carbon Dioxide Level 26 mmol/L (21-32) Anion Gap 11 (6-14) Blood Urea Nitrogen 43 mg/dL (7-20) Creatinine 1.1 mg/dL (0.6-1.0) Estimated GFR (Cockcroft-Gault) 50.0 BUN/Creatinine Ratio 39 (6-20) Glucose Level 277 mg/dL (70-99) Lactic Acid Level 2.5 mmol/L (0.4-2.0) Calcium Level 8.1 mg/dL (8.5-10.1) Magnesium Level 1.9 mg/dL (1.8-2.4) Iron Level 11 ug/dL (50-170) Total Iron Binding Capacity 151 ug/dL (250-450) Iron Saturation 7 % (15-34) Total Bilirubin 0.7 mg/dL (0.2-1.0) Aspartate Amino Transf (AST/SGOT) 92 U/L (15-37) Alanine Aminotransferase (ALT/SGPT) 34 U/L (14-59) Alkaline Phosphatase 251 U/L (46-116) Total Protein 6.5 g/dL (6.4-8.2) Albumin 1.8 g/dL (3.4-5.0) Albumin/Globulin Ratio 0.4 (1.0-1.7) Thyroid Stimulating Hormone (TSH) 0.660 uIU/mL (0.358-3.74) O2 Saturation 83 % (92-99) Arterial Blood pH 7.21 (7.35-7.45) Arterial Blood pCO2 at Patient Temp 60 mmHg (35-46) Arterial Blood pO2 at Patient Temp 58 mmHg (65-108) Arterial Blood HCO3 23 mmol/L (21-28) Arterial Blood Base Excess -6 mmol/L (-3-3) Test 04/20/19 18:10 04/20/19 19:25 04/21/19 03:41 04/21/19 08:05 O2 Saturation 94 % (92-99) Arterial Blood pH 7.33 (7.35-7.45) Arterial Blood pCO2 at Patient Temp 40 mmHg (35-46) Arterial Blood pO2 at Patient Temp 79 mmHg (65-108) Arterial Blood HCO3 20 mmol/L (21-28) Arterial Blood Base Excess -5 mmol/L (-3-3) FiO2 60 Glucose (Fingerstick) 263 mg/dL (70-99) 181 mg/dL (70-99) White Blood Count 17.2 x10^3/uL (4.0-11.0) Red Blood Count 6.08 x10^6/uL (3.50-5.40) Hemoglobin 13.9 g/dL (12.0-15.5) Hematocrit 45.0 % (36.0-47.0) Mean Corpuscular Volume 73 fL (79-100) Mean Corpuscular Hemoglobin 23 pg (25-35) Mean Corpuscular Hemoglobin Concent 31 g/dL (31-37) Red Cell Distribution Width 18.5 % (11.5-14.5) Platelet Count 250 x10^3/uL (140-400) Sodium Level 136 mmol/L (136-145) Potassium Level 4.4 mmol/L (3.5-5.1) Chloride Level 99 mmol/L (98-107) Carbon Dioxide Level 15 mmol/L (21-32) Anion Gap 22 (6-14) Blood Urea Nitrogen 48 mg/dL (7-20) Creatinine 1.3 mg/dL (0.6-1.0) Estimated GFR (Cockcroft-Gault) 41.2 BUN/Creatinine Ratio 37 (6-20) Glucose Level 171 mg/dL (70-99) Calcium Level 8.1 mg/dL (8.5-10.1) Total Bilirubin 1.3 mg/dL (0.2-1.0) Aspartate Amino Transf (AST/SGOT) 196 U/L (15-37) Alanine Aminotransferase (ALT/SGPT) 47 U/L (14-59) Alkaline Phosphatase 308 U/L (46-116) Total Protein 6.5 g/dL (6.4-8.2) Albumin 2.7 g/dL (3.4-5.0) Albumin/Globulin Ratio 0.7 (1.0-1.7) Vancomycin Level Trough 26.2 mcg/mL (10.0-20.0) Vancomycin Last Dose Date 04/20/19 Vancomycin Last Dose Time 0800 Test 04/21/19 09:15 O2 Saturation 99 % (92-99) Arterial Blood pH 7.31 (7.35-7.45) Arterial Blood pCO2 at Patient Temp 32 mmHg (35-46) Arterial Blood pO2 at Patient Temp 147 mmHg (65-108) Arterial Blood HCO3 16 mmol/L (21-28) Arterial Blood Base Excess -10 mmol/L (-3-3) FiO2 80 Micro BLOOD CULTURE Final GRAM POSITIVE COCCI IN CLUSTERS, SUGGESTIVE OF STAPH, IN 1 OF 2 BOTTLES, ONE SET DRAWN. CALLED TO DERRICK HANNON RN ON 6S AT 15:45 ON 04/20/19 [facility] SENT TO [employer] FOR FURTHER WORKUP. AMMENDED REPORT; GRAM POSITIVE COCCI ARE NOW IN BOTH BOTTLES OF THIS SET. 2 OF 2 BOTTLES. CALLED TO DERRICK HANNON RN ON 6S AT 16:20 ON 04/20/19 [facility] * This is a corrected result. * A prior result that was reported as final has been change Objective Assessment 1. Lactic acidosis. This may have been ischemic colon, but also sepsis is possible. 2. Urinary tract infection versus hematuria. 3. Poor personal hygiene. 4. Sacral decubitus. 5. Status post fall. 6. Abdominal pain. 7. BC + with G + cocci ID pending 8. Large pelvic mass 9. Pneumonia Plan Plan of Care CT noted,, large pelvic mass with Lymphadenopathy cont supportive care cont zosyn, hold vancomycin, level 26.2( urine out put is none now, creat is going to go up ), may need dapto from tomorrow d/w GI d/w RN overall prognosis poor Consider palliative care for goal YANG VILLASEÑOR MD Apr 21, 2019 09:41
--- NOTE | 2019-04-21 09:48 | PDOC ---
Objective: Objective: Having central line placed - transferred to ICU last night w/ hypoxia, now intubated and sedated on pressors - nurse says ~2L from OG - also says no longer urinating - family last night via phone wanted "everything done" - not a surgical candidate. Vital Signs: Vital Signs Date Time Temp Pulse Resp B/P (MAP) Pulse Ox O2 Delivery O2 Flow Rate FiO2 04/21/19 08:57 97 Ventilator 04/21/19 08:05 24 04/20/19 17:45 129 137/92 (107) 04/20/19 14:52 98.6 3.0 98.6 Labs: Laboratory Tests Test 04/20/19 10:15 04/20/19 10:30 04/20/19 11:32 04/20/19 16:45 Glucose (Fingerstick) 255 mg/dL 271 mg/dL White Blood Count 9.7 x10^3/uL Red Blood Count 5.63 x10^6/uL Hemoglobin 12.7 g/dL Hematocrit 39.2 % Mean Corpuscular Volume 70 fL Mean Corpuscular Hemoglobin 23 pg Mean Corpuscular Hemoglobin Concent 33 g/dL Red Cell Distribution Width 17.9 % Platelet Count 195 x10^3/uL Neutrophils (%) (Auto) 81 % Lymphocytes (%) (Auto) 13 % Monocytes (%) (Auto) 6 % Eosinophils (%) (Auto) 1 % Basophils (%) (Auto) 0 % Neutrophils # (Auto) 7.8 x10^3/uL Lymphocytes # (Auto) 1.2 x10^3/uL Monocytes # (Auto) 0.5 x10^3/uL Eosinophils # (Auto) 0.1 x10^3/uL Basophils # (Auto) 0.0 x10^3/uL Sodium Level 132 mmol/L Potassium Level 3.4 mmol/L Chloride Level 95 mmol/L Carbon Dioxide Level 26 mmol/L Anion Gap 11 Blood Urea Nitrogen 43 mg/dL Creatinine 1.1 mg/dL Estimated GFR (Cockcroft-Gault) 50.0 BUN/Creatinine Ratio 39 Glucose Level 277 mg/dL Lactic Acid Level 2.5 mmol/L Calcium Level 8.1 mg/dL Magnesium Level 1.9 mg/dL Iron Level 11 ug/dL Total Iron Binding Capacity 151 ug/dL Iron Saturation 7 % Total Bilirubin 0.7 mg/dL Aspartate Amino Transf (AST/SGOT) 92 U/L Alanine Aminotransferase (ALT/SGPT) 34 U/L Alkaline Phosphatase 251 U/L Total Protein 6.5 g/dL Albumin 1.8 g/dL Albumin/Globulin Ratio 0.4 Thyroid Stimulating Hormone (TSH) 0.660 uIU/mL O2 Saturation 83 % Arterial Blood pH 7.21 Arterial Blood pCO2 at Patient Temp 60 mmHg Arterial Blood pO2 at Patient Temp 58 mmHg Arterial Blood HCO3 23 mmol/L Arterial Blood Base Excess -6 mmol/L Test 04/20/19 18:10 04/20/19 19:25 04/21/19 03:41 04/21/19 08:05 O2 Saturation 94 % Arterial Blood pH 7.33 Arterial Blood pCO2 at Patient Temp 40 mmHg Arterial Blood pO2 at Patient Temp 79 mmHg Arterial Blood HCO3 20 mmol/L Arterial Blood Base Excess -5 mmol/L FiO2 60 Glucose (Fingerstick) 263 mg/dL 181 mg/dL White Blood Count 17.2 x10^3/uL Red Blood Count 6.08 x10^6/uL Hemoglobin 13.9 g/dL Hematocrit 45.0 % Mean Corpuscular Volume 73 fL Mean Corpuscular Hemoglobin 23 pg Mean Corpuscular Hemoglobin Concent 31 g/dL Red Cell Distribution Width 18.5 % Platelet Count 250 x10^3/uL Sodium Level 136 mmol/L Potassium Level 4.4 mmol/L Chloride Level 99 mmol/L Carbon Dioxide Level 15 mmol/L Anion Gap 22 Blood Urea Nitrogen 48 mg/dL Creatinine 1.3 mg/dL Estimated GFR (Cockcroft-Gault) 41.2 BUN/Creatinine Ratio 37 Glucose Level 171 mg/dL Calcium Level 8.1 mg/dL Total Bilirubin 1.3 mg/dL Aspartate Amino Transf (AST/SGOT) 196 U/L Alanine Aminotransferase (ALT/SGPT) 47 U/L Alkaline Phosphatase 308 U/L Total Protein 6.5 g/dL Albumin 2.7 g/dL Albumin/Globulin Ratio 0.7 Vancomycin Level Trough 26.2 mcg/mL Vancomycin Last Dose Date 04/20/19 Vancomycin Last Dose Time 0800 Test 04/21/19 09:15 O2 Saturation 99 % Arterial Blood pH 7.31 Arterial Blood pCO2 at Patient Temp 32 mmHg Arterial Blood pO2 at Patient Temp 147 mmHg Arterial Blood HCO3 16 mmol/L Arterial Blood Base Excess -10 mmol/L FiO2 80 Imaging: CT A/P IMPRESSION: 1. Small umbilical hernia containing a short segment of small bowel which is causing small bowel obstruction. Dilated loops of small bowel are seen proximally and decompressed loops distally. 2. Patchy airspace disease the lung bases favored represent pneumonia. Trace left pleural effusion. 3. Numerous enlarged retroperitoneal lymph nodes, which are nonspecific however abnormal. Recommend correlation with history of malignancy. In the absence of known causes of lymphadenopathy tissue sampling would be recommended. 4. Left adnexal mass measuring approximately 8.3 cm. Uncertain whether this is ovarian in etiology or representing a pedunculated fibroid. Initial Further evaluation with ultrasound is recommended when clinically appropriate. 5. Cirrhotic morphology of the liver with secondary sequela of portal hypertension including splenomegaly and ascites. A component of the free fluid may be also reactive to the small bowel obstruction. 6. Nonobstructing 3 mm calculus at the mid right kidney. CXR Impression: 1. Interval retraction of the endotracheal tube tip which now terminates at the level of the clavicles. Orogastric tube tip and sidehole projected over the left upper quadrant. 2. Redemonstrated left-sided pleural effusion. Worsening haziness of the mid to lower bilateral lungs which could be in part related to volume loss however pulmonary edema or potentially the sequela of aspiration are considerations as well. KUB IMPRESSION: Enteric tube with tip likely in the stomach. PE: GEN: ill - having central line placed - intubated LUNGS: vent NEURO/PSYCH: sedated A/P: Umbilical hernia w/ SBO Pneumonia/resp failure, RADHA, GPC bacteremia Lymphadenopathy, left adnexal mass Cirrhosis w/ portal hypertension -- Condition worsening, very ill. Will ask for palliative care discussion. DESHAWN SALEH Apr 21, 2019 09:48
--- NOTE | 2019-04-21 10:22 | RAD ---
Single view of the chest. 04/21/2019 9:52 AM Indication: Respiratory failure Comparison: Chest radiograph, earlier today Findings: There is an endotracheal tube in place approximately 3 cm above the juan. There is an enteric tube extending below the diaphragm likely in the proximal stomach. There is a right internal jugular central line with tip projecting over the proximal right atrium. Patchy interstitial and alveolar infiltrates are present throughout the bilateral lungs, similar to comparison study. Basilar atelectasis noted. A component of left-sided pleural effusion may be present. No pneumothorax is identified. Bony thorax is grossly unchanged. IMPRESSION: 1. New right internal jugular central line with tip in acceptable position 2. Otherwise stable support lines and tubes 3. Bilateral interstitial and alveolar infiltrates are similar Electronically signed by: Kishor Cesar MD (04/21/2019 10:19 AM) [id number]
--- NOTE | 2019-04-21 10:38 | CONS ---
DATE OF CONSULTATION: 04/21/2019 ATTENDING PHYSICIAN: Hammad Pascual DO REASON FOR CONSULTATION: Respiratory failure, sepsis. HISTORY OF PRESENT ILLNESS: The patient is a 63-year-old with morbid obesity with a BMI of 51. The patient was initially hospitalized with generalized weakness. She was on the floor. The patient had a CT abdomen and pelvis, which was performed yesterday and it showed small bowel obstruction. She also had some patchy airspace disease of the lung bases and enlarged lymph nodes. She was on the floor and then Rapid Response was called. She was more lethargic and became unresponsive. As a result, she was intubated. Her pH was 7.21, pCO2 of 60 and a pO2 of 58. The patient had an OG placed and more than 2 liters of fluids came out. The patient's ABGs have subsequently improved to 7.33, pCO2 of 40 and a pO2 of 79 on 60% FiO2. A chest x-ray revealed right mainstem intubation. However, in the interim, she self-extubated. The patient was then reintubated last night. Chest x-ray has shown bilateral worsening infiltrates. Her latest ABGs with a pH of 7.31, pCO2 of 32 and a pO2 of 147 on 80% oxygen. She is also on 8 of PEEP. She is not making urine despite receiving 2 liters of IV fluids and 1 liter of albumin. Her urine output is less than 5 per hour. She is requiring low-dose Levophed. Currently, on assist control mode. I have been asked to see her for further evaluation. PAST MEDICAL HISTORY: History of chronic lymphedema of the lower extremities, history of hypertension, GERD, UTI and diabetes. SURGERIES: and hernia repair. FAMILY HISTORY: Heart disease in the mother. ALLERGIES: None. MEDICATIONS: Reviewed as listed in the MRAD, including broad-spectrum antibiotic and vasopressors. SYSTEM REVIEW: Unable to obtain from the patient. SOCIAL HISTORY: No reported tobacco history. PHYSICAL EXAMINATION: GENERAL: She is intubated and sedated. VITAL SIGNS: Blood pressure is in the one-teens on low-dose pressors. HEENT: Sclerae nonicteric. NECK: Supple. LUNGS: With diminished breath sounds. CARDIOVASCULAR: With a regular rate. ABDOMEN: Obese and she has lower extremity lymphedema. LABORATORY DATA: Reviewed. ABGs as discussed in my history of present illness. BUN is 48 and a creatinine of 1.3. White cell count 17.2, hemoglobin 13.9 and platelets are 250. IMPRESSION: 1. Acute hypercapnic respiratory failure secondary to multifactorial etiologies and likely underlying hypovolemic and septic shock. 2. Worsening bilateral infiltrates, likely related to aspiration pneumonia. 3. Acute kidney injury secondary to hypotension and shock. 4. Small bowel obstruction. She has been seen by Surgery and not a surgical candidate. Over 2 liters of fluid came out from her orogastric tube upon insertion. 5. Chronic lymphedema of the lower extremities. 6. Leukocytosis. 7. Moderate protein-calorie malnutrition. RECOMMENDATIONS: 1. Continue with present assist control mode and make necessary adjustment based on ABGs. 2. Broad-spectrum antibiotic per Infectious Disease recommendations. 3. Follow all cultures. 4. May need Renal consultation and need for dialysis if urine output does not improve. In the meantime, we will try more fluid bolus. 5. Follow Surgery recommendations. 6. Follow GI recommendations. 7. DVT and stress ulcer prophylaxis. 8. Prognosis appears to be grim. We will ask Palliative Care to consider consultation with the family and determine goals of care and also determine code status. 9. Discussed with RN, discussed with RT and critical care time 40 minutes. TYE MADRIGAL MD DR: FLORES/jonnathan JOB#: [id number] / [id number]
[2019-04-21] MEDS: MIDAZOLAM 100mg/100ml NS BAG 100 ML IV PRN (10:53)
[2019-04-21] MEDS: INSULIN LISPRO 300 UNITS/3 ML VIAL. SQ SCH ×3 (11:37→23:31)
--- NOTE | 2019-04-21 11:51 | PDOC2 ---
CONSULT Date of Consult Date of Consult DATE: 04/21/19 TIME: 11:25 Reason for Consult Reason for Consult: No urinary output Identification/Chief Complaint Chief Complaint Unable to obtain, Intubated Source Source: Chart review History of Present Illness Reason for Visit: Pt is a 63-year-old female, morbidly obese (BMI 51) female who was admitted through ER with Hx of weakness and couple of falls She was having nausea and vomiting ? coffee-ground emesis. She was alert and oriented at presentation. She was on the floor She had a CT abdomen and pelvis performed yesterday and it showed small bowel obstruction. She also had some patchy airspace disease of the lung bases and enlarged lymph nodes. Rapid Response was called last evening - She was more lethargic and became unresponsive,as a result, she was intubated. She had an OG placed returned of brown gastric contents. Chest x-ray has shown bilateral worsening infiltrates. Last night she recd IVF 2.5 Lts, with minimal uop , Hypotensive, Currently BP improved on 2 pressors Past Medical History Cardiovascular: HTN GI: GERD Renal/: UTI Endocrine: Diabetes Past Surgical History Past Surgical History: , Hernia Repair Family History Family History: Heart Disease (mother ) Social History No ALCOHOL: none Drugs: None Lives: with Family Current Problem List Problem List Problems Medical Problems: (1) Diabetes Status: Acute (2) Fall Status: Acute (3) Severe sepsis Status: Acute (4) UTI (urinary tract infection) Status: Acute (5) Weakness Status: Acute Current Medications Current Medications Current Medications Sodium Chloride 1,000 ml @ 0 mls/hr 1X ONCE IV Last administered on 04/19/19at 20:10; Start 04/19/19 at 18:45; Stop 04/19/19 at 18:46; Status DC Ceftriaxone Sodium (Rocephin) 1 gm 1X ONCE IVP Last administered on 04/19/19at 19:17; Start 04/19/19 at 18:45; Stop 04/19/19 at 18:46; Status DC Sodium Chloride 1,560 ml @ 1,560 mls/hr Q1H IV ; Start 04/19/19 at 19:03; Status Cancel Vancomycin HCl (Vanco Per Pharmacy) 1 each PRN DAILY PRN MC SEE COMMENTS Last administered on 04/20/19at 14:29; Start 04/19/19 at 19:15; Stop 04/21/19 at 09:40; Status DC Vancomycin HCl 2 gm/Sodium Chloride 500 ml @ 250 mls/hr 1X ONCE IV Last administered on 04/19/19at 20:01; Start 04/19/19 at 19:15; Stop 04/19/19 at 21:14; Status DC Sodium Chloride 1,000 ml @ 1,560 mls/hr Q39M IV Last administered on 04/19/19at 19:17; Start 04/19/19 at 19:15; Stop 04/19/19 at 20:03; Status DC Ondansetron HCl (Zofran) 4 mg PRN Q8HRS PRN IV NAUSEA/VOMITING Last administered on 04/20/19at 09:36; Start 04/19/19 at 19:30; Stop 04/20/19 at 10:00; Status DC Acetaminophen (Tylenol) 650 mg PRN Q4HRS PRN PO FEVER; Start 04/19/19 at 19:30; Stop 04/20/19 at 19:29; Status DC Insulin Human Lispro (HumaLOG) 0-7 UNITS TIDWMEALS SQ Last administered on 04/20/19at 19:52; Start 04/20/19 at 08:00; Stop 04/21/19 at 07:48; Status DC Dextrose (Dextrose 50%-Water Syringe) 12.5 gm PRN Q15MIN PRN IV SEE COMMENTS; Start 04/19/19 at 19:30 Dextrose 250 ml PRN Q15MIN PRN IV SEE COMMENTS; Start 04/19/19 at 19:30 Vancomycin HCl 1.5 gm/Sodium Chloride 500 ml @ 250 mls/hr Q12H IV Last administered on 04/20/19at 20:04; Start 04/20/19 at 08:00; Stop 04/21/19 at 09:40; Status DC Vancomycin HCl (Vancomycin Trough Level) 1 each 1X ONCE MC Last administered on 04/21/19at 10:49; Start 04/21/19 at 07:30; Stop 04/21/19 at 07:31; Status DC Sodium Chloride 1,000 ml @ 80 mls/hr [id number] IV Last administered on 04/20/19at 02:46; Start 04/20/19 at 02:30; Stop 04/20/19 at 11:23; Status DC Insulin Human Lispro (HumaLOG) 4 units 1X ONCE SQ Last administered on 04/20/19at 04:04; Start 04/20/19 at 03:15; Stop 04/20/19 at 03:16; Status DC Ondansetron HCl (Zofran) 4 mg PRN Q6HRS PRN IV NAUSEA/VOMITING Last administered on 04/20/19at 16:04; Start 04/20/19 at 10:00 Sodium Chloride 500 ml @ 500 mls/hr 1X ONCE IV Last administered on 04/20/19at 11:30; Start 04/20/19 at 11:15; Stop 04/20/19 at 12:14; Status DC Potassium Chloride (Klor-Con) 40 meq 1X ONCE PO ; Start 04/20/19 at 11:30; Stop 04/20/19 at 11:31; Status Cancel Sodium Chloride 1,000 ml @ 150 mls/hr Q6H40M IV Last administered on 04/21/19at 05:40; Start 04/20/19 at 11:30 Pantoprazole Sodium (PROTONIX VIAL for IV PUSH) 40 mg DAILYAC IVP Last administered on 04/21/19at 09:05; Start 04/20/19 at 12:30 Potassium Chloride/Water 100 ml @ 100 mls/hr Q1H IV Last administered on 04/21/19at 07:22; Start 04/20/19 at 12:00; Stop 04/20/19 at 15:59; Status DC Metoprolol Tartrate (Lopressor) 25 mg BID PO ; Start 04/20/19 at 14:00; Stop 04/20/19 at 13:34; Status DC Metoprolol Tartrate (Lopressor Vial) 2.5 mg Q6HRS IVP Last administered on 04/20/19at 14:28; Start 04/20/19 at 14:30 Piperacillin Sod/ Tazobactam Sod 3.375 gm/Sodium Chloride 50 ml @ 100 mls/hr Q6HRS IV Last administered on 04/21/19at 05:53; Start 04/20/19 at 18:00 Sodium Chloride 1,000 ml @ 0 mls/hr 1X ONCE IV ; Start 04/20/19 at 15:45; Stop 04/20/19 at 15:49; Status DC Lactic Acid (Lac-Hydrin) 1 gauri BID TP ; Start 04/20/19 at 21:00 Lorazepam (Ativan Inj) 1 mg PRN Q4HRS PRN IV ANXIETY / AGITATION; Start 04/20/19 at 16:15 Lorazepam (Ativan Inj) 1 mg PRN 1X ONCE IV ; Start 04/20/19 at 16:15; Stop 04/20/19 at 16:16; Status DC Propofol 100 ml @ As Directed STK-MED ONCE IV ; Start 04/20/19 at 16:42; Stop 04/20/19 at 16:42; Status DC Norepinephrine Bitartrate 250 ml @ 21 mls/hr CONT PRN IV SEE I/O RECORD Last administered on 04/21/19at 07:51; Start 04/20/19 at 17:15 Midazolam HCl (Versed) 5 mg STK-MED ONCE .ROUTE ; Start 04/20/19 at 17:04; Stop 04/20/19 at 17:05; Status DC Propofol 20 ml @ 0 mls/hr 1X ONCE IV Last administered on 04/20/19at 17:38; Start 04/20/19 at 17:15; Stop 04/20/19 at 17:16; Status DC Succinylcholine Chloride (Anectine) 80 mg 1X ONCE IV Last administered on 04/20/19at 17:36; Start 04/20/19 at 17:30; Stop 04/20/19 at 17:31; Status DC Midazolam HCl (Versed) 5 mg 1X ONCE IV Last administered on 04/20/19at 17:38; Start 04/20/19 at 17:15; Stop 04/20/19 at 17:19; Status DC Midazolam HCl 100 ml @ 5 mls/hr CONT PRN IV SEE I/O RECORD Last administered on 04/21/19at 10:53; Start 04/20/19 at 17:15 Propofol 100 ml @ 1.69 mls/hr CONT PRN IV SEE I/O RECORD Last administered on 04/20/19at 17:36; Start 04/20/19 at 17:15 Fentanyl Citrate 30 ml @ 0 mls/hr CONT PRN PRN IV PER PROTOCOL Last administered on 04/21/19at 06:28; Start 04/20/19 at 17:15 Naloxone HCl (Narcan) 0.4 mg PRN Q2MIN PRN IV SEE INSTRUCTIONS; Start 04/20/19 at 17:15 Sodium Chloride 1,000 ml @ 25 mls/hr Q24H IV Last administered on 04/21/19at 10:53; Start 04/20/19 at 17:12 Norepinephrine Bitartrate 250 ml @ 21.129 mls/ hr CONT PRN IV SEE I/O RECORD; Start 04/20/19 at 17:30; Status UNV Sodium Chloride 500 ml @ 500 mls/hr PRN Q1HR PRN IV LOW UO Last administered on 04/20/19at 19:52; Start 04/20/19 at 19:45 Dexmedetomidine HCl 400 mcg/ Sodium Chloride 100 ml @ 0 mls/hr CONT PRN IV SEDATION Last administered on 04/21/19at 07:49; Start 04/20/19 at 23:30 Sodium Chloride 500 ml @ 500 mls/hr 1X PRN PRN IV PER PROTOCOL; Start 04/20/19 at 23:30 Atropine Sulfate (ATROPINE 0.5mg SYRINGE) 0.5 mg PRN Q5MIN PRN IV SEE COMMENTS; Start 04/20/19 at 23:30 Albumin Human 100 ml @ 100 mls/hr 1X ONCE IV Last administered on 04/21/19at 01:34; Start 04/21/19 at 01:30; Stop 04/21/19 at 02:29; Status DC Sodium Chloride 1,000 ml @ 1,000 mls/hr 1X ONCE IV Last administered on 04/21/19at 05:39; Start 04/21/19 at 02:45; Stop 04/21/19 at 03:44; Status DC Albumin Human 500 ml @ 250 mls/hr Q2HR IV Last administered on 04/21/19at 06:28; Start 04/21/19 at 04:00; Stop 04/21/19 at 07:00; Status DC Vasopressin 40 unit/Dextrose 102 ml @ 6 mls/hr CONT PRN IV SEE I/O RECORD Last administered on 04/21/19at 04:06; Start 04/21/19 at 04:00 Epinephrine HCl 4 mg/Sodium Chloride 254 ml @ 42.935 mls/ hr CONT PRN IV SEE I/O RECORD; Start 04/21/19 at 05:00 Insulin Human Lispro (HumaLOG) 0-7 UNITS Q6HRS SQ ; Start 04/21/19 at 12:00 Rocuronium [place] (Zemuron) 50 mg STK-MED ONCE .ROUTE ; Start 04/20/19 at 18:00; Stop 04/21/19 at 09:09; Status DC Sodium Chloride 1,000 ml @ 1,000 mls/hr 1X ONCE IV Last administered on 04/21/19at 10:53; Start 04/21/19 at 10:30; Stop 04/21/19 at 11:29 Lidocaine HCl (Xylocaine 2% Topical 5gm Tube) 5 gauri STK-MED ONCE TP ; Start 04/19/19 at 12:00; Stop 04/21/19 at 10:21; Status DC Active Scripts Active Reported No Known Medications Prior To Admisstion (Info) Each 1 Each MC 1X Allergies Allergies: Coded Allergies: No Known Drug Allergies (Unverified , 04/19/19) ROS Review of System Unable to obtain 2/2 above Physical Exam Physical Exam GENERAL: sedated on MV HEENT: Both pupils are round and reacting. NECK: Supple LUNGS: Clear. HEART: S1, S2 regular. ABDOMEN: Morbidly obese , Umbilical hernia present. Large pannus EXTREMITIES: Both lower extremities Chronic venous stasis and dermatitis NEUROLOGIC: sedated on vent Dawn + Vital Signs Vital Signs Date Time Temp Pulse Resp B/P (MAP) Pulse Ox O2 Delivery O2 Flow Rate FiO2 04/21/19 10:00 99 29 127/45 (72) 93 Ventilator 04/21/19 08:00 98.4 98.4 04/20/19 21:30 15.0 Assessment & Plan RADHA - ATN- 2/2 Severe Hypotension , Septic Shock/ ?Anuric Currently Ct scan on 04/21- Kidneys and bladder unremarkable UA at presentation Micr hematuria- dawn sample No response to IVF last night ,Currently on 2 pressors, BP improving Discussed with RN to check the dawn - has Urine leaking out of the dawn Monitor , supportive care, strict I/O Acute hypercapnic respiratory failure secondary to multifactorial etiologies and likely underlying hypovolemic and septic shock. Worsening bilateral infiltrates, likely aspiration pneumonia. Small bowel obstruction. She has been seen by Surgery and not a surgical candidate. Over 2 liters of fluid came out from her OG tube upon insertion. Cirrhosis w/ portal hypertension- On CT scan Large pelvic mass /Lymphadenopathy Labs Labs Laboratory Tests Test 04/19/19 18:08 04/19/19 18:19 04/19/19 21:45 04/19/19 22:41 Urine Collection Type U cath Urine Color Yani Urine Clarity Cloudy Urine pH 5.0 Urine Specific [place] 1.025 Urine Protein 30 mg/dL (NEG-TRACE) Urine Glucose (UA) 100 mg/dL (NEG) Urine Ketones (Stick) Trace mg/dL (NEG) Urine Blood Large (NEG) Urine Nitrite Positive (NEG) Urine Bilirubin Large (NEG) Urine Urobilinogen Dipstick 2.0 mg/dL (0.2 mg/dL) Urine Leukocyte Esterase Moderate (NEG) Urine RBC Tntc /HPF (0-2) Urine WBC 11-20 /HPF (0-4) Urine Squamous Epithelial Cells Few /LPF Urine Amorphous Sediment Present /HPF Urine Bacteria Many /HPF (0-FEW) Urine Hyaline Casts Moderate /HPF Urine Mucus Mod /LPF White Blood Count 10.8 x10^3/uL (4.0-11.0) Red Blood Count 5.77 x10^6/uL (3.50-5.40) Hemoglobin 13.0 g/dL (12.0-15.5) Hematocrit 40.7 % (36.0-47.0) Mean Corpuscular Volume 71 fL (79-100) Mean Corpuscular Hemoglobin 23 pg (25-35) Mean Corpuscular Hemoglobin Concent 32 g/dL (31-37) Red Cell Distribution Width 17.5 % (11.5-14.5) Platelet Count 244 x10^3/uL (140-400) Neutrophils (%) (Auto) 84 % (31-73) Lymphocytes (%) (Auto) 10 % (24-48) Monocytes (%) (Auto) 6 % (0-9) Eosinophils (%) (Auto) 0 % (0-3) Basophils (%) (Auto) 0 % (0-3) Neutrophils # (Auto) 9.1 x10^3/uL (1.8-7.7) Lymphocytes # (Auto) 1.1 x10^3/uL (1.0-4.8) Monocytes # (Auto) 0.6 x10^3/uL (0.0-1.1) Eosinophils # (Auto) 0.0 x10^3/uL (0.0-0.7) Basophils # (Auto) 0.0 x10^3/uL (0.0-0.2) Platelet Estimate Adequate (ADEQUATE) Hypochromasia Mod Anisocytosis Slight Microcytosis Mod Sodium Level 127 mmol/L (136-145) Potassium Level 4.0 mmol/L (3.5-5.1) Chloride Level 90 mmol/L (98-107) Carbon Dioxide Level 24 mmol/L (21-32) Anion Gap 13 (6-14) Blood Urea Nitrogen 39 mg/dL (7-20) Creatinine 1.3 mg/dL (0.6-1.0) Estimated GFR (Cockcroft-Gault) 41.2 BUN/Creatinine Ratio 30 (6-20) Glucose Level 373 mg/dL (70-99) Lactic Acid Level 4.3 mmol/L (0.4-2.0) 2.7 mmol/L (0.4-2.0) Calcium Level 8.6 mg/dL (8.5-10.1) Total Bilirubin 1.0 mg/dL (0.2-1.0) Aspartate Amino Transf (AST/SGOT) 87 U/L (15-37) Alanine Aminotransferase (ALT/SGPT) 38 U/L (14-59) Alkaline Phosphatase 249 U/L (46-116) Creatine Kinase 115 U/L (26-192) Total Protein 7.3 g/dL (6.4-8.2) Albumin 2.1 g/dL (3.4-5.0) Albumin/Globulin Ratio 0.4 (1.0-1.7) Procalcitonin 25.73 ng/mL (0.00-0.10) Glucose (Fingerstick) 311 mg/dL (70-99) Test 04/20/19 02:43 04/20/19 07:28 04/20/19 10:15 04/20/19 10:30 Glucose (Fingerstick) 312 mg/dL (70-99) 280 mg/dL (70-99) 255 mg/dL (70-99) White Blood Count 9.7 x10^3/uL (4.0-11.0) Red Blood Count 5.63 x10^6/uL (3.50-5.40) Hemoglobin 12.7 g/dL (12.0-15.5) Hematocrit 39.2 % (36.0-47.0) Mean Corpuscular Volume 70 fL (79-100) Mean Corpuscular Hemoglobin 23 pg (25-35) Mean Corpuscular Hemoglobin Concent 33 g/dL (31-37) Red Cell Distribution Width 17.9 % (11.5-14.5) Platelet Count 195 x10^3/uL (140-400) Neutrophils (%) (Auto) 81 % (31-73) Lymphocytes (%) (Auto) 13 % (24-48) Monocytes (%) (Auto) 6 % (0-9) Eosinophils (%) (Auto) 1 % (0-3) Basophils (%) (Auto) 0 % (0-3) Neutrophils # (Auto) 7.8 x10^3/uL (1.8-7.7) Lymphocytes # (Auto) 1.2 x10^3/uL (1.0-4.8) Monocytes # (Auto) 0.5 x10^3/uL (0.0-1.1) Eosinophils # (Auto) 0.1 x10^3/uL (0.0-0.7) Basophils # (Auto) 0.0 x10^3/uL (0.0-0.2) Sodium Level 132 mmol/L (136-145) Potassium Level 3.4 mmol/L (3.5-5.1) Chloride Level 95 mmol/L (98-107) Carbon Dioxide Level 26 mmol/L (21-32) Anion Gap 11 (6-14) Blood Urea Nitrogen 43 mg/dL (7-20) Creatinine 1.1 mg/dL (0.6-1.0) Estimated GFR (Cockcroft-Gault) 50.0 BUN/Creatinine Ratio 39 (6-20) Glucose Level 277 mg/dL (70-99) Lactic Acid Level 2.5 mmol/L (0.4-2.0) Calcium Level 8.1 mg/dL (8.5-10.1) Magnesium Level 1.9 mg/dL (1.8-2.4) Iron Level 11 ug/dL (50-170) Total Iron Binding Capacity 151 ug/dL (250-450) Iron Saturation 7 % (15-34) Total Bilirubin 0.7 mg/dL (0.2-1.0) Aspartate Amino Transf (AST/SGOT) 92 U/L (15-37) Alanine Aminotransferase (ALT/SGPT) 34 U/L (14-59) Alkaline Phosphatase 251 U/L (46-116) Total Protein 6.5 g/dL (6.4-8.2) Albumin 1.8 g/dL (3.4-5.0) Albumin/Globulin Ratio 0.4 (1.0-1.7) Thyroid Stimulating Hormone (TSH) 0.660 uIU/mL (0.358-3.74) Test 04/20/19 11:32 04/20/19 16:45 04/20/19 18:10 04/20/19 19:25 Glucose (Fingerstick) 271 mg/dL (70-99) 263 mg/dL (70-99) O2 Saturation 83 % (92-99) 94 % (92-99) Arterial Blood pH 7.21 (7.35-7.45) 7.33 (7.35-7.45) Arterial Blood pCO2 at Patient Temp 60 mmHg (35-46) 40 mmHg (35-46) Arterial Blood pO2 at Patient Temp 58 mmHg (65-108) 79 mmHg (65-108) Arterial Blood HCO3 23 mmol/L (21-28) 20 mmol/L (21-28) Arterial Blood Base Excess -6 mmol/L (-3-3) -5 mmol/L (-3-3) FiO2 60 Test 04/21/19 03:41 04/21/19 08:05 04/21/19 09:15 Glucose (Fingerstick) 181 mg/dL (70-99) White Blood Count 17.2 x10^3/uL (4.0-11.0) Red Blood Count 6.08 x10^6/uL (3.50-5.40) Hemoglobin 13.9 g/dL (12.0-15.5) Hematocrit 45.0 % (36.0-47.0) Mean Corpuscular Volume 73 fL (79-100) Mean Corpuscular Hemoglobin 23 pg (25-35) Mean Corpuscular Hemoglobin Concent 31 g/dL (31-37) Red Cell Distribution Width 18.5 % (11.5-14.5) Platelet Count 250 x10^3/uL (140-400) Sodium Level 136 mmol/L (136-145) Potassium Level 4.4 mmol/L (3.5-5.1) Chloride Level 99 mmol/L (98-107) Carbon Dioxide Level 15 mmol/L (21-32) Anion Gap 22 (6-14) Blood Urea Nitrogen 48 mg/dL (7-20) Creatinine 1.3 mg/dL (0.6-1.0) Estimated GFR (Cockcroft-Gault) 41.2 BUN/Creatinine Ratio 37 (6-20) Glucose Level 171 mg/dL (70-99) Calcium Level 8.1 mg/dL (8.5-10.1) Total Bilirubin 1.3 mg/dL (0.2-1.0) Aspartate Amino Transf (AST/SGOT) 196 U/L (15-37) Alanine Aminotransferase (ALT/SGPT) 47 U/L (14-59) Alkaline Phosphatase 308 U/L (46-116) Total Protein 6.5 g/dL (6.4-8.2) Albumin 2.7 g/dL (3.4-5.0) Albumin/Globulin Ratio 0.7 (1.0-1.7) Vancomycin Level Trough 26.2 mcg/mL (10.0-20.0) Vancomycin Last Dose Date 04/20/19 Vancomycin Last Dose Time 0800 O2 Saturation 99 % (92-99) Arterial Blood pH 7.31 (7.35-7.45) Arterial Blood pCO2 at Patient Temp 32 mmHg (35-46) Arterial Blood pO2 at Patient Temp 147 mmHg (65-108) Arterial Blood HCO3 16 mmol/L (21-28) Arterial Blood Base Excess -10 mmol/L (-3-3) FiO2 80 Laboratory Tests Test 04/20/19 11:32 04/20/19 16:45 04/20/19 18:10 04/20/19 19:25 Glucose (Fingerstick) 271 mg/dL (70-99) 263 mg/dL (70-99) O2 Saturation 83 % (92-99) 94 % (92-99) Arterial Blood pH 7.21 (7.35-7.45) 7.33 (7.35-7.45) Arterial Blood pCO2 at Patient Temp 60 mmHg (35-46) 40 mmHg (35-46) Arterial Blood pO2 at Patient Temp 58 mmHg (65-108) 79 mmHg (65-108) Arterial Blood HCO3 23 mmol/L (21-28) 20 mmol/L (21-28) Arterial Blood Base Excess -6 mmol/L (-3-3) -5 mmol/L (-3-3) FiO2 60 Test 04/21/19 03:41 04/21/19 08:05 04/21/19 09:15 Glucose (Fingerstick) 181 mg/dL (70-99) White Blood Count 17.2 x10^3/uL (4.0-11.0) Red Blood Count 6.08 x10^6/uL (3.50-5.40) Hemoglobin 13.9 g/dL (12.0-15.5) Hematocrit 45.0 % (36.0-47.0) Mean Corpuscular Volume 73 fL (79-100) Mean Corpuscular Hemoglobin 23 pg (25-35) Mean Corpuscular Hemoglobin Concent 31 g/dL (31-37) Red Cell Distribution Width 18.5 % (11.5-14.5) Platelet Count 250 x10^3/uL (140-400) Sodium Level 136 mmol/L (136-145) Potassium Level 4.4 mmol/L (3.5-5.1) Chloride Level 99 mmol/L (98-107) Carbon Dioxide Level 15 mmol/L (21-32) Anion Gap 22 (6-14) Blood Urea Nitrogen 48 mg/dL (7-20) Creatinine 1.3 mg/dL (0.6-1.0) Estimated GFR (Cockcroft-Gault) 41.2 BUN/Creatinine Ratio 37 (6-20) Glucose Level 171 mg/dL (70-99) Calcium Level 8.1 mg/dL (8.5-10.1) Total Bilirubin 1.3 mg/dL (0.2-1.0) Aspartate Amino Transf (AST/SGOT) 196 U/L (15-37) Alanine Aminotransferase (ALT/SGPT) 47 U/L (14-59) Alkaline Phosphatase 308 U/L (46-116) Total Protein 6.5 g/dL (6.4-8.2) Albumin 2.7 g/dL (3.4-5.0) Albumin/Globulin Ratio 0.7 (1.0-1.7) Vancomycin Level Trough 26.2 mcg/mL (10.0-20.0) Vancomycin Last Dose Date 04/20/19 Vancomycin Last Dose Time 0800 O2 Saturation 99 % (92-99) Arterial Blood pH 7.31 (7.35-7.45) Arterial Blood pCO2 at Patient Temp 32 mmHg (35-46) Arterial Blood pO2 at Patient Temp 147 mmHg (65-108) Arterial Blood HCO3 16 mmol/L (21-28) Arterial Blood Base Excess -10 mmol/L (-3-3) FiO2 80 Review All relevant outside records, renal labs, imaging studies, telemetry/EKG's were reviewed. Images Images CT scan abdomen w/o Contrast 1. Small umbilical hernia containing a short segment of small bowel which is causing small bowel obstruction. Dilated loops of small bowel are seen proximally and decompressed loops distally. 2. Patchy airspace disease the lung bases favored represent pneumonia. Trace left pleural effusion. 3. Numerous enlarged retroperitoneal lymph nodes, which are nonspecific however abnormal. Recommend correlation with history of malignancy. In the absence of known causes of lymphadenopathy tissue sampling would be recommended. 4. Left adnexal mass measuring approximately 8.3 cm. Uncertain whether this is ovarian in etiology or representing a pedunculated fibroid. Initial Further evaluation with ultrasound is recommended when clinically appropriate. 5. Cirrhotic morphology of the liver with secondary sequela of portal hypertension including splenomegaly and ascites. A component of the free fluid may be also reactive to the small bowel obstruction. 6. Nonobstructing 3 mm calculus at the mid right kidney. CxR-- Patchy interstitial and alveolar infiltrates are present throughout the bilateral lungs, similar to comparison study. Basilar atelectasis noted. A component of left-sided pleural effusion may be present. No pneumothorax is identified. Bony thorax is grossly unchanged. TE HIGH MD Apr 21, 2019 11:51
--- NOTE | 2019-04-21 12:00 | NUR ---
Dawn cath irrigated per Dr. Kulkarni's request. Large amount of thick brown urine pulled out of dawn with lots of sediment that was dark brown. Dawn connected back to bag and urine is now flowing through the tubing.
--- NOTE | 2019-04-21 12:43 | PDOC2 ---
CONSULT Date of Consult Date of Consult DATE: 04/21/19 TIME: 12:34 Reason for Consult Reason for Consult: Incarcerated umb hernia Referring Physician Referring Physician: Dr. Osorio Identification/Chief Complaint Chief Complaint none Source Source: Chart review History of Present Illness Reason for Visit: 63 yo F admitted with fatigue and became non responsive. Has been admitted to ICU and intubated with fluid resuscitation. Past Medical History Cardiovascular: HTN GI: GERD Renal/: UTI Endocrine: Diabetes Past Surgical History Past Surgical History: , Hernia Repair Family History Family History: Heart Disease (mother ) Social History No ALCOHOL: none Drugs: None Lives: with Family Current Problem List Problem List Problems Medical Problems: (1) Diabetes Status: Acute (2) Fall Status: Acute (3) Severe sepsis Status: Acute (4) UTI (urinary tract infection) Status: Acute (5) Weakness Status: Acute Current Medications Current Medications Current Medications Sodium Chloride 1,000 ml @ 0 mls/hr 1X ONCE IV Last administered on 04/19/19at 20:10; Start 04/19/19 at 18:45; Stop 04/19/19 at 18:46; Status DC Ceftriaxone Sodium (Rocephin) 1 gm 1X ONCE IVP Last administered on 04/19/19at 19:17; Start 04/19/19 at 18:45; Stop 04/19/19 at 18:46; Status DC Sodium Chloride 1,560 ml @ 1,560 mls/hr Q1H IV ; Start 04/19/19 at 19:03; Status Cancel Vancomycin HCl (Vanco Per Pharmacy) 1 each PRN DAILY PRN MC SEE COMMENTS Last administered on 04/20/19at 14:29; Start 04/19/19 at 19:15; Stop 04/21/19 at 09:40; Status DC Vancomycin HCl 2 gm/Sodium Chloride 500 ml @ 250 mls/hr 1X ONCE IV Last administered on 04/19/19at 20:01; Start 04/19/19 at 19:15; Stop 04/19/19 at 21:14; Status DC Sodium Chloride 1,000 ml @ 1,560 mls/hr Q39M IV Last administered on 04/19/19at 19:17; Start 04/19/19 at 19:15; Stop 04/19/19 at 20:03; Status DC Ondansetron HCl (Zofran) 4 mg PRN Q8HRS PRN IV NAUSEA/VOMITING Last administered on 04/20/19at 09:36; Start 04/19/19 at 19:30; Stop 04/20/19 at 10:00; Status DC Acetaminophen (Tylenol) 650 mg PRN Q4HRS PRN PO FEVER; Start 04/19/19 at 19:30; Stop 04/20/19 at 19:29; Status DC Insulin Human Lispro (HumaLOG) 0-7 UNITS TIDWMEALS SQ Last administered on 04/20/19at 19:52; Start 04/20/19 at 08:00; Stop 04/21/19 at 07:48; Status DC Dextrose (Dextrose 50%-Water Syringe) 12.5 gm PRN Q15MIN PRN IV SEE COMMENTS; Start 04/19/19 at 19:30 Dextrose 250 ml PRN Q15MIN PRN IV SEE COMMENTS; Start 04/19/19 at 19:30 Vancomycin HCl 1.5 gm/Sodium Chloride 500 ml @ 250 mls/hr Q12H IV Last admini stered on 04/20/19at 20:04; Start 04/20/19 at 08:00; Stop 04/21/19 at 09:40; Status DC Vancomycin HCl (Vancomycin Trough Level) 1 each 1X ONCE MC Last administered on 04/21/19at 10:49; Start 04/21/19 at 07:30; Stop 04/21/19 at 07:31; Status DC Sodium Chloride 1,000 ml @ 80 mls/hr [id number] IV Last administered on 04/20/19at 02:46; Start 04/20/19 at 02:30; Stop 04/20/19 at 11:23; Status DC Insulin Human Lispro (HumaLOG) 4 units 1X ONCE SQ Last administered on 04/20/19 04:04; Start 04/20/19 at 03:15; Stop 04/20/19 at 03:16; Status DC Ondansetron HCl (Zofran) 4 mg PRN Q6HRS PRN IV NAUSEA/VOMITING Last administered on 04/20/19 16:04; Start 04/20/19 at 10:00 Sodium Chloride 500 ml @ 500 mls/hr 1X ONCE IV Last administered on 04/20/19at 11:30; Start 04/20/19 at 11:15; Stop 04/20/19 at 12:14; Status DC Potassium Chloride (Klor-Con) 40 meq 1X ONCE PO ; Start 04/20/19 at 11:30; Stop 04/20/19 at 11:31; Status Cancel Sodium Chloride 1,000 ml @ 150 mls/hr Q6H40M IV Last administered on 04/21/19at 11:38; Start 04/20/19 at 11:30 Pantoprazole Sodium (PROTONIX VIAL for IV PUSH) 40 mg DAILYAC IVP Last administered on 04/21/19at 09:05; Start 04/20/19 at 12:30 Potassium Chloride/Water 100 ml @ 100 mls/hr Q1H IV Last administered on 04/21/19at 07:22; Start 04/20/19 at 12:00; Stop 04/20/19 at 15:59; Status DC Metoprolol Tartrate (Lopressor) 25 mg BID PO ; Start 04/20/19 at 14:00; Stop 04/20/19 at 13:34; Status DC Metoprolol Tartrate (Lopressor Vial) 2.5 mg Q6HRS IVP Last administered on 04/20/19at 14:28; Start 04/20/19 at 14:30 Piperacillin Sod/ Tazobactam Sod 3.375 gm/Sodium Chloride 50 ml @ 100 mls/hr Q6HRS IV Last administered on 04/21/19at 11:37; Start 04/20/19 at 18:00 Sodium Chloride 1,000 ml @ 0 mls/hr 1X ONCE IV ; Start 04/20/19 at 15:45; Stop 04/20/19 at 15:49; Status DC Lactic Acid (Lac-Hydrin) 1 gauri BID TP ; Start 04/20/19 at 21:00 Lorazepam (Ativan Inj) 1 mg PRN Q4HRS PRN IV ANXIETY / AGITATION; Start 04/20/19 at 16:15 Lorazepam (Ativan Inj) 1 mg PRN 1X ONCE IV ; Start 04/20/19 at 16:15; Stop 04/20/19 at 16:16; Status DC Propofol 100 ml @ As Directed STK-MED ONCE IV ; Start 04/20/19 at 16:42; Stop 04/20/19 at 16:42; Status DC Norepinephrine Bitartrate 250 ml @ 21 mls/hr CONT PRN IV SEE I/O RECORD Last administered on 04/21/19at 07:51; Start 04/20/19 at 17:15 Midazolam HCl (Versed) 5 mg STK-MED ONCE .ROUTE ; Start 04/20/19 at 17:04; Stop 04/20/19 at 17:05; Status DC Propofol 20 ml @ 0 mls/hr 1X ONCE IV Last administered on 04/20/19at 17:38; Start 04/20/19 at 17:15; Stop 04/20/19 at 17:16; Status DC Succinylcholine Chloride (Anectine) 80 mg 1X ONCE IV Last administered on 04/20/19at 17:36; Start 04/20/19 at 17:30; Stop 04/20/19 at 17:31; Status DC Midazolam HCl (Versed) 5 mg 1X ONCE IV Last administered on 04/20/19at 17:38; Start 04/20/19 at 17:15; Stop 04/20/19 at 17:19; Status DC Midazolam HCl 100 ml @ 5 mls/hr CONT PRN IV SEE I/O RECORD Last administered on 04/21/19at 10:53; Start 04/20/19 at 17:15 Propofol 100 ml @ 1.69 mls/hr CONT PRN IV SEE I/O RECORD Last administered on 04/20/19at 17:36; Start 04/20/19 at 17:15 Fentanyl Citrate 30 ml @ 0 mls/hr CONT PRN PRN IV PER PROTOCOL Last administered on 04/21/19at 06:28; Start 04/20/19 at 17:15 Naloxone HCl (Narcan) 0.4 mg PRN Q2MIN PRN IV SEE INSTRUCTIONS; Start 04/20/19 at 17:15 Sodium Chloride 1,000 ml @ 25 mls/hr Q24H IV Last administered on 04/21/19at 10:53; Start 04/20/19 at 17:12 Norepinephrine Bitartrate 250 ml @ 21.129 mls/ hr CONT PRN IV SEE I/O RECORD; Start 04/20/19 at 17:30; Status UNV Sodium Chloride 500 ml @ 500 mls/hr PRN Q1HR PRN IV LOW UO Last administered on 04/20/19at 19:52; Start 04/20/19 at 19:45 Dexmedetomidine HCl 400 mcg/ Sodium Chloride 100 ml @ 0 mls/hr CONT PRN IV SEDATION Last administered on 04/21/19at 07:49; Start 04/20/19 at 23:30 Sodium Chloride 500 ml @ 500 mls/hr 1X PRN PRN IV PER PROTOCOL; Start 04/20/19 at 23:30 Atropine Sulfate (ATROPINE 0.5mg SYRINGE) 0.5 mg PRN Q5MIN PRN IV SEE COMMENTS; Start 04/20/19 at 23:30 Albumin Human 100 ml @ 100 mls/hr 1X ONCE IV Last administered on 04/21/19at 01:34; Start 04/21/19 at 01:30; Stop 04/21/19 at 02:29; Status DC Sodium Chloride 1,000 ml @ 1,000 mls/hr 1X ONCE IV Last administered on 04/21/19at 05:39; Start 04/21/19 at 02:45; Stop 04/21/19 at 03:44; Status DC Albumin Human 500 ml @ 250 mls/hr Q2HR IV Last administered on 04/21/19at 06:28; Start 04/21/19 at 04:00; Stop 04/21/19 at 07:00; Status DC Vasopressin 40 unit/Dextrose 102 ml @ 6 mls/hr CONT PRN IV SEE I/O RECORD Last administered on 04/21/19at 04:06; Start 04/21/19 at 04:00 Epinephrine HCl 4 mg/Sodium Chloride 254 ml @ 42.935 mls/ hr CONT PRN IV SEE I/O RECORD; Start 04/21/19 at 05:00 Insulin Human Lispro (HumaLOG) 0-7 UNITS Q6HRS SQ ; Start 04/21/19 at 12:00 Rocuronium [place] (Zemuron) 50 mg STK-MED ONCE .ROUTE ; Start 04/20/19 at 18:00; Stop 04/21/19 at 09:09; Status DC Sodium Chloride 1,000 ml @ 1,000 mls/hr 1X ONCE IV Last administered on 04/21/19at 10:53; Start 04/21/19 at 10:30; Stop 04/21/19 at 11:29; Status DC Lidocaine HCl (Xylocaine 2% Topical 5gm Tube) 5 gauri STK-MED ONCE TP ; Start 04/19/19 at 12:00; Stop 04/21/19 at 10:21; Status DC Active Scripts Active Reported No Known Medications Prior To Admisstion (Info) Each 1 Each MC 1X Allergies Allergies: Coded Allergies: No Known Drug Allergies (Unverified , 04/19/19) ROS Review of System unobtainable Physical Exam General: Other (orally intubated, OGT with bilious aspirate) HEENT: Atraumatic Abdomen: Soft, Other (morbidly obese, difficult to palpate hernia secondary to habitus, NTTP) Extremities: Other (extensive lymphedema) Vitals VITALS Vital Signs Date Time Temp Pulse Resp B/P (MAP) Pulse Ox O2 Delivery O2 Flow Rate FiO2 04/21/19 12:03 96 Ventilator 04/21/19 10:00 99 29 127/45 (72) 04/21/19 08:00 98.4 98.4 04/20/19 21:30 15.0 Labs Labs Laboratory Tests Test 04/19/19 18:08 04/19/19 18:19 04/19/19 21:45 04/19/19 22:41 Urine Collection Type U cath Urine Color Yani Urine Clarity Cloudy Urine pH 5.0 Urine Specific [place] 1.025 Urine Protein 30 mg/dL (NEG-TRACE) Urine Glucose (UA) 100 mg/dL (NEG) Urine Ketones (Stick) Trace mg/dL (NEG) Urine Blood Large (NEG) Urine Nitrite Positive (NEG) Urine Bilirubin Large (NEG) Urine Urobilinogen Dipstick 2.0 mg/dL (0.2 mg/dL) Urine Leukocyte Esterase Moderate (NEG) Urine RBC Tntc /HPF (0-2) Urine WBC 11-20 /HPF (0-4) Urine Squamous Epithelial Cells Few /LPF Urine Amorphous Sediment Present /HPF Urine Bacteria Many /HPF (0-FEW) Urine Hyaline Casts Moderate /HPF Urine Mucus Mod /LPF White Blood Count 10.8 x10^3/uL (4.0-11.0) Red Blood Count 5.77 x10^6/uL (3.50-5.40) Hemoglobin 13.0 g/dL (12.0-15.5) Hematocrit 40.7 % (36.0-47.0) Mean Corpuscular Volume 71 fL (79-100) Mean Corpuscular Hemoglobin 23 pg (25-35) Mean Corpuscular Hemoglobin Concent 32 g/dL (31-37) Red Cell Distribution Width 17.5 % (11.5-14.5) Platelet Count 244 x10^3/uL (140-400) Neutrophils (%) (Auto) 84 % (31-73) Lymphocytes (%) (Auto) 10 % (24-48) Monocytes (%) (Auto) 6 % (0-9) Eosinophils (%) (Auto) 0 % (0-3) Basophils (%) (Auto) 0 % (0-3) Neutrophils # (Auto) 9.1 x10^3/uL (1.8-7.7) Lymphocytes # (Auto) 1.1 x10^3/uL (1.0-4.8) Monocytes # (Auto) 0.6 x10^3/uL (0.0-1.1) Eosinophils # (Auto) 0.0 x10^3/uL (0.0-0.7) Basophils # (Auto) 0.0 x10^3/uL (0.0-0.2) Platelet Estimate Adequate (ADEQUATE) Hypochromasia Mod Anisocytosis Slight Microcytosis Mod Sodium Level 127 mmol/L (136-145) Potassium Level 4.0 mmol/L (3.5-5.1) Chloride Level 90 mmol/L (98-107) Carbon Dioxide Level 24 mmol/L (21-32) Anion Gap 13 (6-14) Blood Urea Nitrogen 39 mg/dL (7-20) Creatinine 1.3 mg/dL (0.6-1.0) Estimated GFR (Cockcroft-Gault) 41.2 BUN/Creatinine Ratio 30 (6-20) Glucose Level 373 mg/dL (70-99) Lactic Acid Level 4.3 mmol/L (0.4-2.0) 2.7 mmol/L (0.4-2.0) Calcium Level 8.6 mg/dL (8.5-10.1) Total Bilirubin 1.0 mg/dL (0.2-1.0) Aspartate Amino Transf (AST/SGOT) 87 U/L (15-37) Alanine Aminotransferase (ALT/SGPT) 38 U/L (14-59) Alkaline Phosphatase 249 U/L (46-116) Creatine Kinase 115 U/L (26-192) Total Protein 7.3 g/dL (6.4-8.2) Albumin 2.1 g/dL (3.4-5.0) Albumin/Globulin Ratio 0.4 (1.0-1.7) Procalcitonin 25.73 ng/mL (0.00-0.10) Glucose (Fingerstick) 311 mg/dL (70-99) Test 04/20/19 02:43 04/20/19 07:28 04/20/19 10:15 04/20/19 10:30 Glucose (Fingerstick) 312 mg/dL (70-99) 280 mg/dL (70-99) 255 mg/dL (70-99) White Blood Count 9.7 x10^3/uL (4.0-11.0) Red Blood Count 5.63 x10^6/uL (3.50-5.40) Hemoglobin 12.7 g/dL (12.0-15.5) Hematocrit 39.2 % (36.0-47.0) Mean Corpuscular Volume 70 fL (79-100) Mean Corpuscular Hemoglobin 23 pg (25-35) Mean Corpuscular Hemoglobin Concent 33 g/dL (31-37) Red Cell Distribution Width 17.9 % (11.5-14.5) Platelet Count 195 x10^3/uL (140-400) Neutrophils (%) (Auto) 81 % (31-73) Lymphocytes (%) (Auto) 13 % (24-48) Monocytes (%) (Auto) 6 % (0-9) Eosinophils (%) (Auto) 1 % (0-3) Basophils (%) (Auto) 0 % (0-3) Neutrophils # (Auto) 7.8 x10^3/uL (1.8-7.7) Lymphocytes # (Auto) 1.2 x10^3/uL (1.0-4.8) Monocytes # (Auto) 0.5 x10^3/uL (0.0-1.1) Eosinophils # (Auto) 0.1 x10^3/uL (0.0-0.7) Basophils # (Auto) 0.0 x10^3/uL (0.0-0.2) Sodium Level 132 mmol/L (136-145) Potassium Level 3.4 mmol/L (3.5-5.1) Chloride Level 95 mmol/L (98-107) Carbon Dioxide Level 26 mmol/L (21-32) Anion Gap 11 (6-14) Blood Urea Nitrogen 43 mg/dL (7-20) Creatinine 1.1 mg/dL (0.6-1.0) Estimated GFR (Cockcroft-Gault) 50.0 BUN/Creatinine Ratio 39 (6-20) Glucose Level 277 mg/dL (70-99) Lactic Acid Level 2.5 mmol/L (0.4-2.0) Calcium Level 8.1 mg/dL (8.5-10.1) Magnesium Level 1.9 mg/dL (1.8-2.4) Iron Level 11 ug/dL (50-170) Total Iron Binding Capacity 151 ug/dL (250-450) Iron Saturation 7 % (15-34) Total Bilirubin 0.7 mg/dL (0.2-1.0) Aspartate Amino Transf (AST/SGOT) 92 U/L (15-37) Alanine Aminotransferase (ALT/SGPT) 34 U/L (14-59) Alkaline Phosphatase 251 U/L (46-116) Total Protein 6.5 g/dL (6.4-8.2) Albumin 1.8 g/dL (3.4-5.0) Albumin/Globulin Ratio 0.4 (1.0-1.7) Thyroid Stimulating Hormone (TSH) 0.660 uIU/mL (0.358-3.74) Test 04/20/19 11:32 04/20/19 16:45 04/20/19 18:10 04/20/19 19:25 Glucose (Fingerstick) 271 mg/dL (70-99) 263 mg/dL (70-99) O2 Saturation 83 % (92-99) 94 % (92-99) Arterial Blood pH 7.21 (7.35-7.45) 7.33 (7.35-7.45) Arterial Blood pCO2 at Patient Temp 60 mmHg (35-46) 40 mmHg (35-46) Arterial Blood pO2 at Patient Temp 58 mmHg (65-108) 79 mmHg (65-108) Arterial Blood HCO3 23 mmol/L (21-28) 20 mmol/L (21-28) Arterial Blood Base Excess -6 mmol/L (-3-3) -5 mmol/L (-3-3) FiO2 60 Test 04/21/19 03:41 04/21/19 08:05 04/21/19 09:15 Glucose (Fingerstick) 181 mg/dL (70-99) White Blood Count 17.2 x10^3/uL (4.0-11.0) Red Blood Count 6.08 x10^6/uL (3.50-5.40) Hemoglobin 13.9 g/dL (12.0-15.5) Hematocrit 45.0 % (36.0-47.0) Mean Corpuscular Volume 73 fL (79-100) Mean Corpuscular Hemoglobin 23 pg (25-35) Mean Corpuscular Hemoglobin Concent 31 g/dL (31-37) Red Cell Distribution Width 18.5 % (11.5-14.5) Platelet Count 250 x10^3/uL (140-400) Sodium Level 136 mmol/L (136-145) Potassium Level 4.4 mmol/L (3.5-5.1) Chloride Level 99 mmol/L (98-107) Carbon Dioxide Level 15 mmol/L (21-32) Anion Gap 22 (6-14) Blood Urea Nitrogen 48 mg/dL (7-20) Creatinine 1.3 mg/dL (0.6-1.0) Estimated GFR (Cockcroft-Gault) 41.2 BUN/Creatinine Ratio 37 (6-20) Glucose Level 171 mg/dL (70-99) Calcium Level 8.1 mg/dL (8.5-10.1) Total Bilirubin 1.3 mg/dL (0.2-1.0) Aspartate Amino Transf (AST/SGOT) 196 U/L (15-37) Alanine Aminotransferase (ALT/SGPT) 47 U/L (14-59) Alkaline Phosphatase 308 U/L (46-116) Total Protein 6.5 g/dL (6.4-8.2) Albumin 2.7 g/dL (3.4-5.0) Albumin/Globulin Ratio 0.7 (1.0-1.7) Vancomycin Level Trough 26.2 mcg/mL (10.0-20.0) Vancomycin Last Dose Date 04/20/19 Vancomycin Last Dose Time 0800 O2 Saturation 99 % (92-99) Arterial Blood pH 7.31 (7.35-7.45) Arterial Blood pCO2 at Patient Temp 32 mmHg (35-46) Arterial Blood pO2 at Patient Temp 147 mmHg (65-108) Arterial Blood HCO3 16 mmol/L (21-28) Arterial Blood Base Excess -10 mmol/L (-3-3) FiO2 80 Laboratory Tests Test 04/20/19 16:45 04/20/19 18:10 04/20/19 19:25 04/21/19 03:41 O2 Saturation 83 % (92-99) 94 % (92-99) Arterial Blood pH 7.21 (7.35-7.45) 7.33 (7.35-7.45) Arterial Blood pCO2 at Patient Temp 60 mmHg (35-46) 40 mmHg (35-46) Arterial Blood pO2 at Patient Temp 58 mmHg (65-108) 79 mmHg (65-108) Arterial Blood HCO3 23 mmol/L (21-28) 20 mmol/L (21-28) Arterial Blood Base Excess -6 mmol/L (-3-3) -5 mmol/L (-3-3) FiO2 60 Glucose (Fingerstick) 263 mg/dL (70-99) 181 mg/dL (70-99) Test 04/21/19 08:05 04/21/19 09:15 White Blood Count 17.2 x10^3/uL (4.0-11.0) Red Blood Count 6.08 x10^6/uL (3.50-5.40) Hemoglobin 13.9 g/dL (12.0-15.5) Hematocrit 45.0 % (36.0-47.0) Mean Corpuscular Volume 73 fL (79-100) Mean Corpuscular Hemoglobin 23 pg (25-35) Mean Corpuscular Hemoglobin Concent 31 g/dL (31-37) Red Cell Distribution Width 18.5 % (11.5-14.5) Platelet Count 250 x10^3/uL (140-400) Sodium Level 136 mmol/L (136-145) Potassium Level 4.4 mmol/L (3.5-5.1) Chloride Level 99 mmol/L (98-107) Carbon Dioxide Level 15 mmol/L (21-32) Anion Gap 22 (6-14) Blood Urea Nitrogen 48 mg/dL (7-20) Creatinine 1.3 mg/dL (0.6-1.0) Estimated GFR (Cockcroft-Gault) 41.2 BUN/Creatinine Ratio 37 (6-20) Glucose Level 171 mg/dL (70-99) Calcium Level 8.1 mg/dL (8.5-10.1) Total Bilirubin 1.3 mg/dL (0.2-1.0) Aspartate Amino Transf (AST/SGOT) 196 U/L (15-37) Alanine Aminotransferase (ALT/SGPT) 47 U/L (14-59) Alkaline Phosphatase 308 U/L (46-116) Total Protein 6.5 g/dL (6.4-8.2) Albumin 2.7 g/dL (3.4-5.0) Albumin/Globulin Ratio 0.7 (1.0-1.7) Vancomycin Level Trough 26.2 mcg/mL (10.0-20.0) Vancomycin Last Dose Date 04/20/19 Vancomycin Last Dose Time 0800 O2 Saturation 99 % (92-99) Arterial Blood pH 7.31 (7.35-7.45) Arterial Blood pCO2 at Patient Temp 32 mmHg (35-46) Arterial Blood pO2 at Patient Temp 147 mmHg (65-108) Arterial Blood HCO3 16 mmol/L (21-28) Arterial Blood Base Excess -10 mmol/L (-3-3) FiO2 80 Images Images Umb hernia with loop of small bowel, causing obstruction Assessment/Plan Assessment/Plan Incarcerated umbilical/incisional hernia given pt's poor overall clinical status (respiratory failure, renal failure), pt is currently prohibitive surgical candidate. Agree with critical care support and to continue OGT to [facility] for treatment of small bowel obstruction. If clinical status can be improved, would consider repair. However, elective repair would be highly morbid and/or mortal, given morbid obesity (high failure rate) and cirrhosis (poor healing, high failure rate) with portal hypertension (high risk of uncontrollable bleeding). Will follow for possible surgical inter vention, but prognosis remains poor and agree with consideration of palliative care. Thanks for consult! NATE SHORT MD Apr 21, 2019 12:43
[2019-04-21] MEDS: AMMONIUM LACTATE 12% TOPICAL LOTION 226GM BOTTLE. TP SCH ×2 (13:16→20:45)
--- NOTE | 2019-04-21 14:03 | NUR ---
SS following for discharge planning. Pt transferred to ICU and is currently on the vent. SS discussed with Michael AGUIRRE. Pt is from home. No discharge needs noted at this time. SS will continue to follow for discharge planning.
--- NOTE | 2019-04-21 14:15 | PDOC2 ---
PALLIATIVE CARE Palliative Care Note Palliative Care Consult requested by Dr. Hanley to address goals of care Medical Assessment per medical record; 1. Acute hypercapnic respiratory failure secondary to multifactorial etiologies and likely underlying hypovolemic and septic shock. 2. Worsening bilateral infiltrates, likely related to aspiration pneumonia. 3. Acute kidney injury secondary to hypotension and shock. 4. Small bowel obstruction. She has been seen by Surgery and not a surgical candidate. Over 2 liters of fluid came out from her orogastric tube upon insertion. 5. Chronic lymphedema of the lower extremities. 6. Leukocytosis. 7. Moderate protein-calorie malnutrition. Patient intubated. Spoke with , Pierre. Has daughter Viry and one other daughter who is mentally challenged. Both he and Viry were here last night when oxygen sats dropped. He wants to continue all aggressive treatments including full code. Requested call back since he is very tired and will discuss later. Will arrange family meeting as soon as family allows. JOSÉ ANTONIO YEUNG Apr 21, 2019 14:15
[2019-04-21 16:13] LABS: BARBITURATES NEG (NEG); BENZODIAZEPINES POS (NEG); CANNABINOIDS NEG (NEG); COCAINE NEG (NEG); METHADONE NEG (NEG); OPIATES NEG (NEG); PHENCYCLIDINE NEG (NEG)
[2019-04-21 16:14] LABS: AMPHETAMINE/METHAMPHETAMINE NEG (NEG)
[2019-04-21] MEDS: ACETAMINOPHEN 650 MG SUPP.RECT. PR PRN (17:53)
--- NOTE | 2019-04-21 18:11 | PDOC2 ---
UROLOGY CONSULT Date of Consult Date of Consult DATE: 04/21/19 TIME: 18:06 Identification/Chief Complaint Chief Complaint n/a, patient intubated Source Source: Chart review History of Present Illness Reason for Visit: 63 yo female admitted for respiratory failure, sepsis. Asked to see patient re: gross hematuria. Unable to interview patient due to intubation. CT shows large incarcerated abdominal hernia. I reviewed images - normal appearing kidneys and ureters without stones or hydronephrosis. UA consistent with UTI. Past Medical History Cardiovascular: HTN GI: GERD Renal/: UTI Endocrine: Diabetes Past Surgical History Past Surgical History: , Hernia Repair Family History Family History: Heart Disease (mother ) Social History No ALCOHOL: none Drugs: None Lives: with Family Current Medications Current Medications Current Medications Acetaminophen (Tylenol Supp) 650 mg PRN Q6HRS PRN CO MILD PAIN / TEMP Last administered on 04/21/19at 17:53; Start 04/21/19 at 16:45 Albumin Human 100 ml @ 100 mls/hr 1X ONCE IV Last administered on 04/21/19at 01:34; Start 04/21/19 at 01:30; Stop 04/21/19 at 02:29; Status DC Albumin Human 500 ml @ 250 mls/hr Q2HR IV Last administered on 04/21/19at 06:28; Start 04/21/19 at 04:00; Stop 04/21/19 at 07:00; Status DC Atropine Sulfate (ATROPINE 0.5mg SYRINGE) 0.5 mg PRN Q5MIN PRN IV SEE COMMENTS; Start 04/20/19 at 23:30 Dexmedetomidine HCl 400 mcg/ Sodium Chloride 100 ml @ 0 mls/hr CONT PRN IV SEDATION Last administered on 04/21/19at 17:27; Start 04/20/19 at 23:30 Enoxaparin Sodium (Lovenox 60mg Syringe) 60 mg Q12HR SQ ; Start 04/21/19 at 21:00 Epinephrine HCl 4 mg/Sodium Chloride 254 ml @ 42.935 mls/ hr CONT PRN IV SEE I/O RECORD; Start 04/21/19 at 05:00 Insulin Human Lispro (HumaLOG) 0-7 UNITS Q6HRS SQ ; Start 04/21/19 at 12:00 Lactic Acid (Lac-Hydrin) 1 gauri BID TP Last administered on 04/21/19at 13:16; Start 04/20/19 at 21:00 Sodium Chloride 500 ml @ 500 mls/hr 1X PRN PRN IV PER PROTOCOL; Start 04/20/19 at 23:30 Sodium Chloride 500 ml @ 500 mls/hr PRN Q1HR PRN IV LOW UO Last administered on 04/20/19at 19:52; Start 04/20/19 at 19:45 Sodium Chloride 1,000 ml @ 1,000 mls/hr 1X ONCE IV Last administered on 04/21/19at 05:39; Start 04/21/19 at 02:45; Stop 04/21/19 at 03:44; Status DC Sodium Chloride 1,000 ml @ 1,000 mls/hr 1X ONCE IV Last administered on 04/21/19at 10:53; Start 04/21/19 at 10:30; Stop 04/21/19 at 11:29; Status DC Vancomycin HCl (Vancomycin Trough Level) 1 each 1X ONCE MC Last administered on 04/21/19at 10:49; Start 04/21/19 at 07:30; Stop 04/21/19 at 07:31; Status DC Vasopressin 40 unit/Dextrose 102 ml @ 6 mls/hr CONT PRN IV SEE I/O RECORD Last administered on 04/21/19at 18:02; Start 04/21/19 at 04:00 Allergies Allergies: Coded Allergies: No Known Drug Allergies (Unverified , 04/19/19) ROS Review Of Systems: unable to obtain Physical Exam Physical Exam: General: intubated, critically ill Eyes: conjunctiva anicteric ENT: moist oral mucosa, ET tube in place Neck: Trachea midline, no masses Respiratory: unlabored breathing Cardiovascular: Regular rate and rhythm Abdomen: obese Skin: no rashes or skin lesions on visualized skin Psych: intubated, not responsive : dawn with clear lauren urine, no clots. Vitals VITALS Vital Signs Date Time Temp Pulse Resp B/P (MAP) Pulse Ox O2 Delivery O2 Flow Rate FiO2 04/21/19 17:27 29 97 Ventilator 04/21/19 17:00 105 102/50 (67) 04/21/19 16:00 103.2 103.2 04/20/19 21:30 15.0 Labs Labs Laboratory Tests Test 04/19/19 18:08 04/19/19 18:19 04/19/19 21:45 04/19/19 22:41 Urine Collection Type U cath Urine Color Lauren Urine Clarity Cloudy Urine pH 5.0 Urine Specific [place] 1.025 Urine Protein 30 mg/dL (NEG-TRACE) Urine Glucose (UA) 100 mg/dL (NEG) Urine Ketones (Stick) Trace mg/dL (NEG) Urine Blood Large (NEG) Urine Nitrite Positive (NEG) Urine Bilirubin Large (NEG) Urine Urobilinogen Dipstick 2.0 mg/dL (0.2 mg/dL) Urine Leukocyte Esterase Moderate (NEG) Urine RBC Tntc /HPF (0-2) Urine WBC 11-20 /HPF (0-4) Urine Squamous Epithelial Cells Few /LPF Urine Amorphous Sediment Present /HPF Urine Bacteria Many /HPF (0-FEW) Urine Hyaline Casts Moderate /HPF Urine Mucus Mod /LPF White Blood Count 10.8 x10^3/uL (4.0-11.0) Red Blood Count 5.77 x10^6/uL (3.50-5.40) Hemoglobin 13.0 g/dL (12.0-15.5) Hematocrit 40.7 % (36.0-47.0) Mean Corpuscular Volume 71 fL (79-100) Mean Corpuscular Hemoglobin 23 pg (25-35) Mean Corpuscular Hemoglobin Concent 32 g/dL (31-37) Red Cell Distribution Width 17.5 % (11.5-14.5) Platelet Count 244 x10^3/uL (140-400) Neutrophils (%) (Auto) 84 % (31-73) Lymphocytes (%) (Auto) 10 % (24-48) Monocytes (%) (Auto) 6 % (0-9) Eosinophils (%) (Auto) 0 % (0-3) Basophils (%) (Auto) 0 % (0-3) Neutrophils # (Auto) 9.1 x10^3/uL (1.8-7.7) Lymphocytes # (Auto) 1.1 x10^3/uL (1.0-4.8) Monocytes # (Auto) 0.6 x10^3/uL (0.0-1.1) Eosinophils # (Auto) 0.0 x10^3/uL (0.0-0.7) Basophils # (Auto) 0.0 x10^3/uL (0.0-0.2) Platelet Estimate Adequate (ADEQUATE) Hypochromasia Mod Anisocytosis Slight Microcytosis Mod Sodium Level 127 mmol/L (136-145) Potassium Level 4.0 mmol/L (3.5-5.1) Chloride Level 90 mmol/L (98-107) Carbon Dioxide Level 24 mmol/L (21-32) Anion Gap 13 (6-14) Blood Urea Nitrogen 39 mg/dL (7-20) Creatinine 1.3 mg/dL (0.6-1.0) Estimated GFR (Cockcroft-Gault) 41.2 BUN/Creatinine Ratio 30 (6-20) Glucose Level 373 mg/dL (70-99) Lactic Acid Level 4.3 mmol/L (0.4-2.0) 2.7 mmol/L (0.4-2.0) Calcium Level 8.6 mg/dL (8.5-10.1) Total Bilirubin 1.0 mg/dL (0.2-1.0) Aspartate Amino Transf (AST/SGOT) 87 U/L (15-37) Alanine Aminotransferase (ALT/SGPT) 38 U/L (14-59) Alkaline Phosphatase 249 U/L (46-116) Creatine Kinase 115 U/L (26-192) Total Protein 7.3 g/dL (6.4-8.2) Albumin 2.1 g/dL (3.4-5.0) Albumin/Globulin Ratio 0.4 (1.0-1.7) Procalcitonin 25.73 ng/mL (0.00-0.10) Glucose (Fingerstick) 311 mg/dL (70-99) Test 04/20/19 02:43 04/20/19 07:28 04/20/19 10:15 04/20/19 10:30 Glucose (Fingerstick) 312 mg/dL (70-99) 280 mg/dL (70-99) 255 mg/dL (70-99) White Blood Count 9.7 x10^3/uL (4.0-11.0) Red Blood Count 5.63 x10^6/uL (3.50-5.40) Hemoglobin 12.7 g/dL (12.0-15.5) Hematocrit 39.2 % (36.0-47.0) Mean Corpuscular Volume 70 fL (79-100) Mean Corpuscular Hemoglobin 23 pg (25-35) Mean Corpuscular Hemoglobin Concent 33 g/dL (31-37) Red Cell Distribution Width 17.9 % (11.5-14.5) Platelet Count 195 x10^3/uL (140-400) Neutrophils (%) (Auto) 81 % (31-73) Lymphocytes (%) (Auto) 13 % (24-48) Monocytes (%) (Auto) 6 % (0-9) Eosinophils (%) (Auto) 1 % (0-3) Basophils (%) (Auto) 0 % (0-3) Neutrophils # (Auto) 7.8 x10^3/uL (1.8-7.7) Lymphocytes # (Auto) 1.2 x10^3/uL (1.0-4.8) Monocytes # (Auto) 0.5 x10^3/uL (0.0-1.1) Eosinophils # (Auto) 0.1 x10^3/uL (0.0-0.7) Basophils # (Auto) 0.0 x10^3/uL (0.0-0.2) Sodium Level 132 mmol/L (136-145) Potassium Level 3.4 mmol/L (3.5-5.1) Chloride Level 95 mmol/L (98-107) Carbon Dioxide Level 26 mmol/L (21-32) Anion Gap 11 (6-14) Blood Urea Nitrogen 43 mg/dL (7-20) Creatinine 1.1 mg/dL (0.6-1.0) Estimated GFR (Cockcroft-Gault) 50.0 BUN/Creatinine Ratio 39 (6-20) Glucose Level 277 mg/dL (70-99) Lactic Acid Level 2.5 mmol/L (0.4-2.0) Calcium Level 8.1 mg/dL (8.5-10.1) Magnesium Level 1.9 mg/dL (1.8-2.4) Iron Level 11 ug/dL (50-170) Total Iron Binding Capacity 151 ug/dL (250-450) Iron Saturation 7 % (15-34) Total Bilirubin 0.7 mg/dL (0.2-1.0) Aspartate Amino Transf (AST/SGOT) 92 U/L (15-37) Alanine Aminotransferase (ALT/SGPT) 34 U/L (14-59) Alkaline Phosphatase 251 U/L (46-116) Total Protein 6.5 g/dL (6.4-8.2) Albumin 1.8 g/dL (3.4-5.0) Albumin/Globulin Ratio 0.4 (1.0-1.7) Thyroid Stimulating Hormone (TSH) 0.660 uIU/mL (0.358-3.74) Test 04/20/19 11:32 04/20/19 16:45 04/20/19 18:10 04/20/19 19:25 Glucose (Fingerstick) 271 mg/dL (70-99) 263 mg/dL (70-99) O2 Saturation 83 % (92-99) 94 % (92-99) Arterial Blood pH 7.21 (7.35-7.45) 7.33 (7.35-7.45) Arterial Blood pCO2 at Patient Temp 60 mmHg (35-46) 40 mmHg (35-46) Arterial Blood pO2 at Patient Temp 58 mmHg (65-108) 79 mmHg (65-108) Arterial Blood HCO3 23 mmol/L (21-28) 20 mmol/L (21-28) Arterial Blood Base Excess -6 mmol/L (-3-3) -5 mmol/L (-3-3) FiO2 60 Test 04/21/19 03:41 04/21/19 08:05 04/21/19 09:15 04/21/19 11:35 Glucose (Fingerstick) 181 mg/dL (70-99) 199 mg/dL (70-99) White Blood Count 17.2 x10^3/uL (4.0-11.0) Red Blood Count 6.08 x10^6/uL (3.50-5.40) Hemoglobin 13.9 g/dL (12.0-15.5) Hematocrit 45.0 % (36.0-47.0) Mean Corpuscular Volume 73 fL (79-100) Mean Corpuscular Hemoglobin 23 pg (25-35) Mean Corpuscular Hemoglobin Concent 31 g/dL (31-37) Red Cell Distribution Width 18.5 % (11.5-14.5) Platelet Count 250 x10^3/uL (140-400) Sodium Level 136 mmol/L (136-145) Potassium Level 4.4 mmol/L (3.5-5.1) Chloride Level 99 mmol/L (98-107) Carbon Dioxide Level 15 mmol/L (21-32) Anion Gap 22 (6-14) Blood Urea Nitrogen 48 mg/dL (7-20) Creatinine 1.3 mg/dL (0.6-1.0) Estimated GFR (Cockcroft-Gault) 41.2 BUN/Creatinine Ratio 37 (6-20) Glucose Level 171 mg/dL (70-99) Calcium Level 8.1 mg/dL (8.5-10.1) Total Bilirubin 1.3 mg/dL (0.2-1.0) Aspartate Amino Transf (AST/SGOT) 196 U/L (15-37) Alanine Aminotransferase (ALT/SGPT) 47 U/L (14-59) Alkaline Phosphatase 308 U/L (46-116) Total Protein 6.5 g/dL (6.4-8.2) Albumin 2.7 g/dL (3.4-5.0) Albumin/Globulin Ratio 0.7 (1.0-1.7) Vancomycin Level Trough 26.2 mcg/mL (10.0-20.0) Vancomycin Last Dose Date 04/20/19 Vancomycin Last Dose Time 0800 O2 Saturation 99 % (92-99) Arterial Blood pH 7.31 (7.35-7.45) Arterial Blood pCO2 at Patient Temp 32 mmHg (35-46) Arterial Blood pO2 at Patient Temp 147 mmHg (65-108) Arterial Blood HCO3 16 mmol/L (21-28) Arterial Blood Base Excess -10 mmol/L (-3-3) FiO2 80 Test 04/21/19 12:15 04/21/19 15:30 Hepatitis A IgM Antibody Nonreactive (Nonreactive) Hepatitis B Surface Antigen Nonreactive (Nonreactive) Hepatitis B Core IgM Antibody Nonreactive (Nonreactive) Hepatitis C IgG Antibody Nonreactive (Nonreactive) Urine Opiates Screen Neg (NEG) Urine Methadone Screen Neg (NEG) Urine Barbiturates Neg (NEG) Urine Phencyclidine Screen Neg (NEG) Urine Amphetamine/Methamphetamine Neg (NEG) Urine Benzodiazepines Screen Pos (NEG) Urine Cocaine Screen Neg (NEG) Urine Cannabinoids Screen Neg (NEG) Urine Ethyl Alcohol Neg (NEG) Laboratory Tests Test 04/20/19 18:10 04/20/19 19:25 04/21/19 03:41 04/21/19 08:05 O2 Saturation 94 % (92-99) Arterial Blood pH 7.33 (7.35-7.45) Arterial Blood pCO2 at Patient Temp 40 mmHg (35-46) Arterial Blood pO2 at Patient Temp 79 mmHg (65-108) Arterial Blood HCO3 20 mmol/L (21-28) Arterial Blood Base Excess -5 mmol/L (-3-3) FiO2 60 Glucose (Fingerstick) 263 mg/dL (70-99) 181 mg/dL (70-99) White Blood Count 17.2 x10^3/uL (4.0-11.0) Red Blood Count 6.08 x10^6/uL (3.50-5.40) Hemoglobin 13.9 g/dL (12.0-15.5) Hematocrit 45.0 % (36.0-47.0) Mean Corpuscular Volume 73 fL (79-100) Mean Corpuscular Hemoglobin 23 pg (25-35) Mean Corpuscular Hemoglobin Concent 31 g/dL (31-37) Red Cell Distribution Width 18.5 % (11.5-14.5) Platelet Count 250 x10^3/uL (140-400) Sodium Level 136 mmol/L (136-145) Potassium Level 4.4 mmol/L (3.5-5.1) Chloride Level 99 mmol/L (98-107) Carbon Dioxide Level 15 mmol/L (21-32) Anion Gap 22 (6-14) Blood Urea Nitrogen 48 mg/dL (7-20) Creatinine 1.3 mg/dL (0.6-1.0) Estimated GFR (Cockcroft-Gault) 41.2 BUN/Creatinine Ratio 37 (6-20) Glucose Level 171 mg/dL (70-99) Calcium Level 8.1 mg/dL (8.5-10.1) Total Bilirubin 1.3 mg/dL (0.2-1.0) Aspartate Amino Transf (AST/SGOT) 196 U/L (15-37) Alanine Aminotransferase (ALT/SGPT) 47 U/L (14-59) Alkaline Phosphatase 308 U/L (46-116) Total Protein 6.5 g/dL (6.4-8.2) Albumin 2.7 g/dL (3.4-5.0) Albumin/Globulin Ratio 0.7 (1.0-1.7) Vancomycin Level Trough 26.2 mcg/mL (10.0-20.0) Vancomycin Last Dose Date 04/20/19 Vancomycin Last Dose Time 0800 Test 04/21/19 09:15 04/21/19 11:35 04/21/19 12:15 04/21/19 15:30 O2 Saturation 99 % (92-99) Arterial Blood pH 7.31 (7.35-7.45) Arterial Blood pCO2 at Patient Temp 32 mmHg (35-46) Arterial Blood pO2 at Patient Temp 147 mmHg (65-108) Arterial Blood HCO3 16 mmol/L (21-28) Arterial Blood Base Excess -10 mmol/L (-3-3) FiO2 80 Glucose (Fingerstick) 199 mg/dL (70-99) Hepatitis A IgM Antibody Nonreactive (Nonreactive) Hepatitis B Surface Antigen Nonreactive (Nonreactive) Hepatitis B Core IgM Antibody Nonreactive (Nonreactive) Hepatitis C IgG Antibody Nonreactive (Nonreactive) Urine Opiates Screen Neg (NEG) Urine Methadone Screen Neg (NEG) Urine Barbiturates Neg (NEG) Urine Phencyclidine Screen Neg (NEG) Urine Amphetamine/Methamphetamine Neg (NEG) Urine Benzodiazepines Screen Pos (NEG) Urine Cocaine Screen Neg (NEG) Urine Cannabinoids Screen Neg (NEG) Urine Ethyl Alcohol Neg (NEG) Assessment/Plan Assessment/Plan Hematuria likely secondary to UTI / urosepsis. Hematuria is minimal, no intervention required at this time. Will sign off, please call with questions. ABRIL SRIVASTAVA MD Apr 21, 2019 18:11
--- NOTE | 2019-04-21 19:30 | RAD ---
EXAM: CHEST 1 VIEW History: Intubation COMPARISON: 04/20/2019 TECHNIQUE: Single portable radiograph of the chest FINDINGS: Low lung volumes and technique accentuates heart size and pulmonary vasculature. ET tube is identified in the trachea the level of the clavicles. The feeding tube is identified below the level of the diaphragm likely within the stomach. Mildly improved patchy diffuse airspace opacities identified in the bilateral lungs likely infiltrates. Impression: 1. Mild improvement in bilateral lung patchy airspace opacities likely infiltrates Electronically signed by: Jr Ramos MD (04/21/2019 5:43 PM) [place] [id number]
--- NOTE | 2019-04-21 19:30 | RAD ---
ABDOMEN COMPLETE History: Transaminitis Comparison: CT April 20 2019 Technique: Sonographic examination of the abdomen was performed and multiple grayscale and color Doppler static images were obtained. Findings: Heterogeneous nodular liver, may indicate chronic liver disease. The liver is enlarged measures 23.7 cm. Common bile duct is normal in caliber, measuring 7 mm in diameter. The gallbladder is enlarged. Gallbladder sludge. Gallbladder wall thickening measures 8 mm. Visualized pancreas is homogeneous. The right kidney is normal in echotexture and measures 14.4 x 5.6 x 5.6 cm. The left kidney is normal in echotexture and measures 14.2 x 5.0 x 6.6 cm. No hydronephrosis. No solid renal mass or cyst. No calculus. The spleen measures 16.2 cm. Aorta and IVC are not well seen due to overlying bowel gas. Small upper abdominal ascites. IMPRESSION: 1. Heterogeneous enlarged nodular liver, may indicate chronic liver disease although hepatitis is possible. 2. Dilated gallbladder with gallbladder sludge and wall thickening, may relate to liver disease. If concern for acute cholecystitis HIDA scan can better evaluate gallbladder function. 3. Small upper abdominal ascites. 4. Splenomegaly. Electronically signed by: Mak Chapman DO (04/21/2019 6:25 PM) [id number]
--- NOTE | 2019-04-21 21:16 | NUR ---
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 Repeat BCx2 drawn and Lactic Acid drawn stat and tylenol given. Paged technology education instructor infectious disease doctor at 1941 regarding fever and elevated Lactic Acid, awaiting return call. Ice packs placed in patient's armpits and behind the neck. Will continue to monitor.
[2019-04-22] VITALS (24 sets, daily range): BP systolic 98–146; BP diastolic 40–79
[2019-04-22] MEDS ORDERED: ACETAMINOPHEN 650 MG/20.3 ML SOLUTION. PEG PRN (00:15)
[2019-04-22] MEDS: ACETAMINOPHEN 650 MG SUPP.RECT. PR PRN (00:38)
[2019-04-22] MEDS: MIDAZOLAM 100mg/100ml NS BAG 100 ML IV PRN (04:57)
[2019-04-22] MEDS: PIPERACILLIN/TAZOBACTAM 3.375 GM in IV NORMAL SALINE 50ML 50 ML IV SCH ×4 (05:37→23:29)
[2019-04-22] MEDS: METOPROLOL TARTRATE 5 MG/5 ML VIAL. IVP SCH ×4 (05:37→23:29)
[2019-04-22] MEDS: INSULIN LISPRO 300 UNITS/3 ML VIAL. SQ SCH ×4 (05:38→23:30)
[2019-04-22 06:18] LABS: ALBUMIN 1.8 g/dL (3.4-5.0); ALBUMIN/GLOBULIN RATIO 0.5 (1.0-1.7); CALCIUM 7.8 mg/dL (8.5-10.1); CREATININE 1.5 mg/dL (0.6-1.0); POTASSIUM 3.9 mmol/L (3.5-5.1); TOTAL BILIRUBIN 1.3 mg/dL (0.2-1.0); TOTAL PROTEIN 5.8 g/dL (6.4-8.2)
--- NOTE | 2019-04-22 06:31 | NUR ---
Patient continued to have fever despite additional Tylenol, changing ice packs out frequently, and an ice bath. Patient placed on cooling blanket to lowest temperature and is slowly cooling. Will continue to monitor.
--- NOTE | 2019-04-22 06:31 | PDOC ---
PULMONARY PROGRESS NOTES Subjective on vent, on peep 8, fio2 70%, sedated versed, fentanyl, precedex, small ett secretion, on levo, vaso, t max 103 Vitals Vital Signs Date Time Temp Pulse Resp B/P (MAP) Pulse Ox O2 Delivery O2 Flow Rate FiO2 04/22/19 06:00 102.5 100 21 121/61 (81) 97 Ventilator 102.5 Comments ros as mentioned as above discussed w rn other sys otherwise neg on vent sedated HEENT: Other (nc at perrl nose clear orally intubated neck no lad no thyromegaly) Lungs: Other (deminished) Cardiovascular: S1, S2 Abdomen: Other (distended obese deminished bs) Extremities: Other (edema) Skin: Warm Labs Laboratory Tests Test 04/20/19 07:28 04/20/19 10:15 04/20/19 10:30 04/20/19 11:32 Glucose (Fingerstick) 280 mg/dL (70-99) 255 mg/dL (70-99) 271 mg/dL (70-99) White Blood Count 9.7 x10^3/uL (4.0-11.0) Red Blood Count 5.63 x10^6/uL (3.50-5.40) Hemoglobin 12.7 g/dL (12.0-15.5) Hematocrit 39.2 % (36.0-47.0) Mean Corpuscular Volume 70 fL (79-100) Mean Corpuscular Hemoglobin 23 pg (25-35) Mean Corpuscular Hemoglobin Concent 33 g/dL (31-37) Red Cell Distribution Width 17.9 % (11.5-14.5) Platelet Count 195 x10^3/uL (140-400) Neutrophils (%) (Auto) 81 % (31-73) Lymphocytes (%) (Auto) 13 % (24-48) Monocytes (%) (Auto) 6 % (0-9) Eosinophils (%) (Auto) 1 % (0-3) Basophils (%) (Auto) 0 % (0-3) Neutrophils # (Auto) 7.8 x10^3/uL (1.8-7.7) Lymphocytes # (Auto) 1.2 x10^3/uL (1.0-4.8) Monocytes # (Auto) 0.5 x10^3/uL (0.0-1.1) Eosinophils # (Auto) 0.1 x10^3/uL (0.0-0.7) Basophils # (Auto) 0.0 x10^3/uL (0.0-0.2) Sodium Level 132 mmol/L (136-145) Potassium Level 3.4 mmol/L (3.5-5.1) Chloride Level 95 mmol/L (98-107) Carbon Dioxide Level 26 mmol/L (21-32) Anion Gap 11 (6-14) Blood Urea Nitrogen 43 mg/dL (7-20) Creatinine 1.1 mg/dL (0.6-1.0) Estimated GFR (Cockcroft-Gault) 50.0 BUN/Creatinine Ratio 39 (6-20) Glucose Level 277 mg/dL (70-99) Lactic Acid Level 2.5 mmol/L (0.4-2.0) Calcium Level 8.1 mg/dL (8.5-10.1) Magnesium Level 1.9 mg/dL (1.8-2.4) Iron Level 11 ug/dL (50-170) Total Iron Binding Capacity 151 ug/dL (250-450) Iron Saturation 7 % (15-34) Total Bilirubin 0.7 mg/dL (0.2-1.0) Aspartate Amino Transf (AST/SGOT) 92 U/L (15-37) Alanine Aminotransferase (ALT/SGPT) 34 U/L (14-59) Alkaline Phosphatase 251 U/L (46-116) Total Protein 6.5 g/dL (6.4-8.2) Albumin 1.8 g/dL (3.4-5.0) Albumin/Globulin Ratio 0.4 (1.0-1.7) Thyroid Stimulating Hormone (TSH) 0.660 uIU/mL (0.358-3.74) Test 04/20/19 16:45 04/20/19 18:10 04/20/19 19:25 04/21/19 03:41 O2 Saturation 83 % (92-99) 94 % (92-99) Arterial Blood pH 7.21 (7.35-7.45) 7.33 (7.35-7.45) Arterial Blood pCO2 at Patient Temp 60 mmHg (35-46) 40 mmHg (35-46) Arterial Blood pO2 at Patient Temp 58 mmHg (65-108) 79 mmHg (65-108) Arterial Blood HCO3 23 mmol/L (21-28) 20 mmol/L (21-28) Arterial Blood Base Excess -6 mmol/L (-3-3) -5 mmol/L (-3-3) FiO2 60 Glucose (Fingerstick) 263 mg/dL (70-99) 181 mg/dL (70-99) Test 04/21/19 08:05 04/21/19 09:15 04/21/19 11:35 04/21/19 12:15 White Blood Count 17.2 x10^3/uL (4.0-11.0) Red Blood Count 6.08 x10^6/uL (3.50-5.40) Hemoglobin 13.9 g/dL (12.0-15.5) Hematocrit 45.0 % (36.0-47.0) Mean Corpuscular Volume 73 fL (79-100) Mean Corpuscular Hemoglobin 23 pg (25-35) Mean Corpuscular Hemoglobin Concent 31 g/dL (31-37) Red Cell Distribution Width 18.5 % (11.5-14.5) Platelet Count 250 x10^3/uL (140-400) Sodium Level 136 mmol/L (136-145) Potassium Level 4.4 mmol/L (3.5-5.1) Chloride Level 99 mmol/L (98-107) Carbon Dioxide Level 15 mmol/L (21-32) Anion Gap 22 (6-14) Blood Urea Nitrogen 48 mg/dL (7-20) Creatinine 1.3 mg/dL (0.6-1.0) Estimated GFR (Cockcroft-Gault) 41.2 BUN/Creatinine Ratio 37 (6-20) Glucose Level 171 mg/dL (70-99) Calcium Level 8.1 mg/dL (8.5-10.1) Total Bilirubin 1.3 mg/dL (0.2-1.0) Aspartate Amino Transf (AST/SGOT) 196 U/L (15-37) Alanine Aminotransferase (ALT/SGPT) 47 U/L (14-59) Alkaline Phosphatase 308 U/L (46-116) Total Protein 6.5 g/dL (6.4-8.2) Albumin 2.7 g/dL (3.4-5.0) Albumin/Globulin Ratio 0.7 (1.0-1.7) Vancomycin Level Trough 26.2 mcg/mL (10.0-20.0) Vancomycin Last Dose Date 04/20/19 Vancomycin Last Dose Time 0800 O2 Saturation 99 % (92-99) Arterial Blood pH 7.31 (7.35-7.45) Arterial Blood pCO2 at Patient Temp 32 mmHg (35-46) Arterial Blood pO2 at Patient Temp 147 mmHg (65-108) Arterial Blood HCO3 16 mmol/L (21-28) Arterial Blood Base Excess -10 mmol/L (-3-3) FiO2 80 Glucose (Fingerstick) 199 mg/dL (70-99) Hepatitis A IgM Antibody Nonreactive (Nonreactive) Hepatitis B Surface Antigen Nonreactive (Nonreactive) Hepatitis B Core IgM Antibody Nonreactive (Nonreactive) Hepatitis C IgG Antibody Nonreactive (Nonreactive) Test 04/21/19 15:30 04/21/19 17:45 04/21/19 18:05 04/21/19 23:28 Urine Opiates Screen Neg (NEG) Urine Methadone Screen Neg (NEG) Urine Barbiturates Neg (NEG) Urine Phencyclidine Screen Neg (NEG) Urine Amphetamine/Methamphetamine Neg (NEG) Urine Benzodiazepines Screen Pos (NEG) Urine Cocaine Screen Neg (NEG) Urine Cannabinoids Screen Neg (NEG) Urine Ethyl Alcohol Neg (NEG) Lactic Acid Level 2.9 mmol/L (0.4-2.0) Glucose (Fingerstick) 196 mg/dL (70-99) 223 mg/dL (70-99) Test 04/22/19 05:33 04/22/19 05:34 Glucose (Fingerstick) 232 mg/dL (70-99) Sodium Level 138 mmol/L (136-145) Potassium Level 3.9 mmol/L (3.5-5.1) Chloride Level 104 mmol/L (98-107) Carbon Dioxide Level 16 mmol/L (21-32) Anion Gap 18 (6-14) Blood Urea Nitrogen 47 mg/dL (7-20) Creatinine 1.5 mg/dL (0.6-1.0) Estimated GFR (Cockcroft-Gault) 35.0 BUN/Creatinine Ratio 31 (6-20) Glucose Level 257 mg/dL (70-99) Calcium Level 7.8 mg/dL (8.5-10.1) Total Bilirubin 1.3 mg/dL (0.2-1.0) Aspartate Amino Transf (AST/SGOT) 207 U/L (15-37) Alanine Aminotransferase (ALT/SGPT) 62 U/L (14-59) Alkaline Phosphatase 211 U/L (46-116) Total Protein 5.8 g/dL (6.4-8.2) Albumin 1.8 g/dL (3.4-5.0) Albumin/Globulin Ratio 0.5 (1.0-1.7) Laboratory Tests Test 04/21/19 08:05 04/21/19 09:15 04/21/19 11:35 04/21/19 12:15 White Blood Count 17.2 x10^3/uL (4.0-11.0) Red Blood Count 6.08 x10^6/uL (3.50-5.40) Hemoglobin 13.9 g/dL (12.0-15.5) Hematocrit 45.0 % (36.0-47.0) Mean Corpuscular Volume 73 fL (79-100) Mean Corpuscular Hemoglobin 23 pg (25-35) Mean Corpuscular Hemoglobin Concent 31 g/dL (31-37) Red Cell Distribution Width 18.5 % (11.5-14.5) Platelet Count 250 x10^3/uL (140-400) Sodium Level 136 mmol/L (136-145) Potassium Level 4.4 mmol/L (3.5-5.1) Chloride Level 99 mmol/L (98-107) Carbon Dioxide Level 15 mmol/L (21-32) Anion Gap 22 (6-14) Blood Urea Nitrogen 48 mg/dL (7-20) Creatinine 1.3 mg/dL (0.6-1.0) Estimated GFR (Cockcroft-Gault) 41.2 BUN/Creatinine Ratio 37 (6-20) Glucose Level 171 mg/dL (70-99) Calcium Level 8.1 mg/dL (8.5-10.1) Total Bilirubin 1.3 mg/dL (0.2-1.0) Aspartate Amino Transf (AST/SGOT) 196 U/L (15-37) Alanine Aminotransferase (ALT/SGPT) 47 U/L (14-59) Alkaline Phosphatase 308 U/L (46-116) Total Protein 6.5 g/dL (6.4-8.2) Albumin 2.7 g/dL (3.4-5.0) Albumin/Globulin Ratio 0.7 (1.0-1.7) Vancomycin Level Trough 26.2 mcg/mL (10.0-20.0) Vancomycin Last Dose Date 04/20/19 Vancomycin Last Dose Time 0800 O2 Saturation 99 % (92-99) Arterial Blood pH 7.31 (7.35-7.45) Arterial Blood pCO2 at Patient Temp 32 mmHg (35-46) Arterial Blood pO2 at Patient Temp 147 mmHg (65-108) Arterial Blood HCO3 16 mmol/L (21-28) Arterial Blood Base Excess -10 mmol/L (-3-3) FiO2 80 Glucose (Fingerstick) 199 mg/dL (70-99) Hepatitis A IgM Antibody Nonreactive (Nonreactive) Hepatitis B Surface Antigen Nonreactive (Nonreactive) Hepatitis B Core IgM Antibody Nonreactive (Nonreactive) Hepatitis C IgG Antibody Nonreactive (Nonreactive) Test 04/21/19 15:30 04/21/19 17:45 04/21/19 18:05 04/21/19 23:28 Urine Opiates Screen Neg (NEG) Urine Methadone Screen Neg (NEG) Urine Barbiturates Neg (NEG) Urine Phencyclidine Screen Neg (NEG) Urine Amphetamine/Methamphetamine Neg (NEG) Urine Benzodiazepines Screen Pos (NEG) Urine Cocaine Screen Neg (NEG) Urine Cannabinoids Screen Neg (NEG) Urine Ethyl Alcohol Neg (NEG) Lactic Acid Level 2.9 mmol/L (0.4-2.0) Glucose (Fingerstick) 196 mg/dL (70-99) 223 mg/dL (70-99) Test 04/22/19 05:33 04/22/19 05:34 Glucose (Fingerstick) 232 mg/dL (70-99) Sodium Level 138 mmol/L (136-145) Potassium Level 3.9 mmol/L (3.5-5.1) Chloride Level 104 mmol/L (98-107) Carbon Dioxide Level 16 mmol/L (21-32) Anion Gap 18 (6-14) Blood Urea Nitrogen 47 mg/dL (7-20) Creatinine 1.5 mg/dL (0.6-1.0) Estimated GFR (Cockcroft-Gault) 35.0 BUN/Creatinine Ratio 31 (6-20) Glucose Level 257 mg/dL (70-99) Calcium Level 7.8 mg/dL (8.5-10.1) Total Bilirubin 1.3 mg/dL (0.2-1.0) Aspartate Amino Transf (AST/SGOT) 207 U/L (15-37) Alanine Aminotransferase (ALT/SGPT) 62 U/L (14-59) Alkaline Phosphatase 211 U/L (46-116) Total Protein 5.8 g/dL (6.4-8.2) Albumin 1.8 g/dL (3.4-5.0) Albumin/Globulin Ratio 0.5 (1.0-1.7) Medications Active Scripts Medications Dose Route/Sig Max Daily Dose Days Date Category No Known Medications Prior To Admisstion (Info) Each 1 Each 1X 04/20/19 Reported Comments cxr reviewed New right internal jugular central line with tip in acceptable position 2. Otherwise stable support lines and tubes 3. Bilateral interstitial and alveolar infiltrates are similar Impression . IMPRESSION: 1. Acute hypercapnic respiratory failure secondary to multifactorial etiologies and likely underlying hypovolemic and septic shock. 2. Worsening bilateral infiltrates, likely related to aspiration pneumonia. 3. Acute kidney injury secondary to hypotension and shock. 4. Small bowel obstruction. She has been seen by Surgery and not a surgical candidate. Over 2 liters of fluid came out from her orogastric tube upon insertion. 5. Chronic lymphedema of the lower extremities. 6. Leukocytosis. 7. Moderate protein-calorie malnutrition. 8. fever 9. bacteremia, gram +cocci Plan . RECOMMENDATIONS: 1. Continue with present assist control mode and make necessary adjustment based on ABGs. titrate fi02 to keep sat >93% 2. Broad-spectrum antibiotic per Infectious Disease recommendations. 3. Follow all cultures. 4. May need Renal consultation and need for dialysis if urine output does not improve. 5. Follow Surgery recommendations. 6. Follow GI recommendations. 7. DVT and stress ulcer prophylaxis. 8. Prognosis appears to be grim. Palliative Care consulted discussed w DORON Demarco MD Apr 22, 2019 06:31
[2019-04-22 06:49] LABS: BASO # 0.1 x10^3/uL (0.0-0.2); BASO % 0 % (0-3); EOS % 0 % (0-3); LYMPH # 2.1 x10^3/uL (1.0-4.8); LYMPH % 10 % (24-48); MEAN CORPUSCULAR HEMOGLOBIN 22 pg (25-35); MEAN CORPUSCULAR HGB CONC 31 g/dL (31-37); MEAN CORPUSCULAR VOLUME 73 fL (79-100); MONO # 0.7 x10^3/uL (0.0-1.1); MONO % 3 % (0-9); NEUT # 19.3 x10^3/uL (1.8-7.7); NEUT % 87 % (31-73); RED BLOOD COUNT 4.95 x10^6/uL (3.50-5.40); RED CELL DISTRIBUTION WIDTH 18.6 % (11.5-14.5); WHITE BLOOD COUNT 22.2 x10^3/uL (4.0-11.0)
[2019-04-22 07:07] LABS: PLATELET COUNT 137 x10^3/uL (140-400)
[2019-04-22] MEDS: PANTOPRAZOLE IV PUSH 40 MG VIAL. IVP SCH (07:24)
--- NOTE | 2019-04-22 07:28 | PDOC ---
PROGRESS NOTES History of Present Illness History of Present Illness ASSESSMENT AND PLAN: Gastrointestinal bleed, failure to thrive, multiple hypokalemia, hyponatremia, azotemia, dehydration, new onset diabetes, probable malnutrition sepsis Small umbilical hernia containing a short segment of small bowel which is causing small bowel obstruction. Dilated loops of small bowel are seen proximally and decompressed loops distally. Patchy airspace disease the lung bases favored represent pneumonia. Trace left pleural effusion. enlarged retroperitoneal lymph nodes, which are nonspecific however abnormal. Recommend correlation with history of malignancy. In the absence of known causes of lymphadenopathy tissue sampling would be recommended. Left adnexal mass measuring approximately 8.3 cm. Uncertain whether this is ovarian in etiology or representing a pedunculated fibroid. Initial Further evaluation with ultrasound is recommended when clinically appropriate. Cirrhotic morphology of the liver with secondary sequela of portal hypertension including splenomegaly and ascites. A component of the free fluid may be also reactive to the small bowel obstruction. Nonobstructing 3 mm calculus at the mid right kidney. CXR 04/21 New right internal jugular central line with tip in acceptable position Otherwise stable support lines and tubes 04/21 Bilateral interstitial and alveolar infiltrates hematuria Heterogeneous enlarged nodular liver, may indicate chronic liver disease although hepatitis is possible. Dilated gallbladder with gallbladder sludge and wall thickening, may relate to liver disease. If concern for acute cholecystitis HIDA scan can better evaluate gallbladder function. Small upper abdominal ascites. Splenomegaly. FEVER Thrombocytopenia, monitor Palliative care consult admitted. ICU intubated on vent and on vasopressors PULM CONSULT IV fluids, IV antibiotics, consult GI, consult Cardiology, cardiac monitoring icu bed, consult Infectious Disease, DVT prophylaxis, HOLD 04/21 rn social services consult for long-term care, home meds. 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 No conjunctival lesion, no lesion in the mouth. NECK: Supple, no JVP, no lymphadenopathy. LUNGS: Clear. HEART: S1, S2 regular. ABDOMEN: Diffusely tender, no rebound or guarding. No organomegaly appreciated. Umbilical hernia present. Large pannus present. She has some yeast infection under the pannus, actually not bad. EXTREMITIES: Both lower extremities have venous insufficiency, stasis dermatitis on both the legs posteriorly. She does have stage 2 sacral decubitus. NEUROLOGIC: sedated on vent General: Other (orally intubated, OGT with bilious aspirate) Heart: Regular rate, Other (distant heart tones ) Abdomen: Normal bowel sounds, Soft, Other (very obese, vague tenderness ) Extremities: Other (extensive lymphedema) Skin: No significant lesion Labs LABS STATUS: ADM IN ORD. PHYSICIAN: ASHLY SIEGEL MD REASON: transaminitis PROCEDURE: ABDOMEN COMPLETE ABDOMEN COMPLETE History: Transaminitis Comparison: CT April 20 2019 Technique: Sonographic examination of the abdomen was performed and multiple grayscale and color Doppler static images were obtained. Findings: Heterogeneous nodular liver, may indicate chronic liver disease. The liver is enlarged measures 23.7 cm. Common bile duct is normal in caliber, measuring 7 mm in diameter. The gallbladder is enlarged. Gallbladder sludge. Gallbladder wall thickening measures 8 mm. Visualized pancreas is homogeneous. The right kidney is normal in echotexture and measures 14.4 x 5.6 x 5.6 cm. The left kidney is normal in echotexture and measures 14.2 x 5.0 x 6.6 cm. No hydronephrosis. No solid renal mass or cyst. No calculus. The spleen measures 16.2 cm. Aorta and IVC are not well seen due to overlying bowel gas. Small upper abdominal ascites. IMPRESSION: 1. Heterogeneous enlarged nodular liver, may indicate chronic liver disease although hepatitis is possible. 2. Dilated gallbladder with gallbladder sludge and wall thickening, may relate to liver disease. If concern for acute cholecystitis HIDA scan can better evaluate gallbladder function. 3. Small upper abdominal ascites. 4. Splenomegaly. Electronically signed by: Mak Chapman DO (04/21/2019 6:25 PM) [id number] Laboratory Tests Test 04/21/19 08:05 04/21/19 09:15 04/21/19 11:35 04/21/19 12:15 White Blood Count 17.2 x10^3/uL (4.0-11.0) Red Blood Count 6.08 x10^6/uL (3.50-5.40) Hemoglobin 13.9 g/dL (12.0-15.5) Hematocrit 45.0 % (36.0-47.0) Mean Corpuscular Volume 73 fL (79-100) Mean Corpuscular Hemoglobin 23 pg (25-35) Mean Corpuscular Hemoglobin Concent 31 g/dL (31-37) Red Cell Distribution Width 18.5 % (11.5-14.5) Platelet Count 250 x10^3/uL (140-400) Sodium Level 136 mmol/L (136-145) Potassium Level 4.4 mmol/L (3.5-5.1) Chloride Level 99 mmol/L (98-107) Carbon Dioxide Level 15 mmol/L (21-32) Anion Gap 22 (6-14) Blood Urea Nitrogen 48 mg/dL (7-20) Creatinine 1.3 mg/dL (0.6-1.0) Estimated GFR (Cockcroft-Gault) 41.2 BUN/Creatinine Ratio 37 (6-20) Glucose Level 171 mg/dL (70-99) Calcium Level 8.1 mg/dL (8.5-10.1) Total Bilirubin 1.3 mg/dL (0.2-1.0) Aspartate Amino Transf (AST/SGOT) 196 U/L (15-37) Alanine Aminotransferase (ALT/SGPT) 47 U/L (14-59) Alkaline Phosphatase 308 U/L (46-116) Total Protein 6.5 g/dL (6.4-8.2) Albumin 2.7 g/dL (3.4-5.0) Albumin/Globulin Ratio 0.7 (1.0-1.7) Vancomycin Level Trough 26.2 mcg/mL (10.0-20.0) Vancomycin Last Dose Date 04/20/19 Vancomycin Last Dose Time 0800 O2 Saturation 99 % (92-99) Arterial Blood pH 7.31 (7.35-7.45) Arterial Blood pCO2 at Patient Temp 32 mmHg (35-46) Arterial Blood pO2 at Patient Temp 147 mmHg (65-108) Arterial Blood HCO3 16 mmol/L (21-28) Arterial Blood Base Excess -10 mmol/L (-3-3) FiO2 80 Glucose (Fingerstick) 199 mg/dL (70-99) Hepatitis A IgM Antibody Nonreactive (Nonreactive) Hepatitis B Surface Antigen Nonreactive (Nonreactive) Hepatitis B Core IgM Antibody Nonreactive (Nonreactive) Hepatitis C IgG Antibody Nonreactive (Nonreactive) Test 04/21/19 15:30 04/21/19 17:45 04/21/19 18:05 04/21/19 23:28 Urine Opiates Screen Neg (NEG) Urine Methadone Screen Neg (NEG) Urine Barbiturates Neg (NEG) Urine Phencyclidine Screen Neg (NEG) Urine Amphetamine/Methamphetamine Neg (NEG) Urine Benzodiazepines Screen Pos (NEG) Urine Cocaine Screen Neg (NEG) Urine Cannabinoids Screen Neg (NEG) Urine Ethyl Alcohol Neg (NEG) Lactic Acid Level 2.9 mmol/L (0.4-2.0) Glucose (Fingerstick) 196 mg/dL (70-99) 223 mg/dL (70-99) Test 04/22/19 05:33 04/22/19 05:34 Glucose (Fingerstick) 232 mg/dL (70-99) White Blood Count 22.2 x10^3/uL (4.0-11.0) Red Blood Count 4.95 x10^6/uL (3.50-5.40) Hemoglobin 11.0 g/dL (12.0-15.5) Hematocrit 36.0 % (36.0-47.0) Mean Corpuscular Volume 73 fL (79-100) Mean Corpuscular Hemoglobin 22 pg (25-35) Mean Corpuscular Hemoglobin Concent 31 g/dL (31-37) Red Cell Distribution Width 18.6 % (11.5-14.5) Platelet Count 137 x10^3/uL (140-400) Neutrophils (%) (Auto) 87 % (31-73) Lymphocytes (%) (Auto) 10 % (24-48) Monocytes (%) (Auto) 3 % (0-9) Eosinophils (%) (Auto) 0 % (0-3) Basophils (%) (Auto) 0 % (0-3) Neutrophils # (Auto) 19.3 x10^3/uL (1.8-7.7) Lymphocytes # (Auto) 2.1 x10^3/uL (1.0-4.8) Monocytes # (Auto) 0.7 x10^3/uL (0.0-1.1) Eosinophils # (Auto) 0.0 x10^3/uL (0.0-0.7) Basophils # (Auto) 0.1 x10^3/uL (0.0-0.2) Sodium Level 138 mmol/L (136-145) Potassium Level 3.9 mmol/L (3.5-5.1) Chloride Level 104 mmol/L (98-107) Carbon Dioxide Level 16 mmol/L (21-32) Anion Gap 18 (6-14) Blood Urea Nitrogen 47 mg/dL (7-20) Creatinine 1.5 mg/dL (0.6-1.0) Estimated GFR (Cockcroft-Gault) 35.0 BUN/Creatinine Ratio 31 (6-20) Glucose Level 257 mg/dL (70-99) Calcium Level 7.8 mg/dL (8.5-10.1) Total Bilirubin 1.3 mg/dL (0.2-1.0) Aspartate Amino Transf (AST/SGOT) 207 U/L (15-37) Alanine Aminotransferase (ALT/SGPT) 62 U/L (14-59) Alkaline Phosphatase 211 U/L (46-116) Total Protein 5.8 g/dL (6.4-8.2) Albumin 1.8 g/dL (3.4-5.0) Albumin/Globulin Ratio 0.5 (1.0-1.7) Assessment and Plan Assessmemt and Plan Problems Medical Problems: (1) Diabetes Status: Acute (2) Fall Status: Acute (3) Severe sepsis Status: Acute (4) UTI (urinary tract infection) Status: Acute (5) Weakness Status: Acute Comment Review of Relevant I have reviewed the following items ashok (where applicable) has been applied. Labs Laboratory Tests Test 04/20/19 07:28 04/20/19 10:15 04/20/19 10:30 04/20/19 11:32 Glucose (Fingerstick) 280 mg/dL (70-99) 255 mg/dL (70-99) 271 mg/dL (70-99) White Blood Count 9.7 x10^3/uL (4.0-11.0) Red Blood Count 5.63 x10^6/uL (3.50-5.40) Hemoglobin 12.7 g/dL (12.0-15.5) Hematocrit 39.2 % (36.0-47.0) Mean Corpuscular Volume 70 fL (79-100) Mean Corpuscular Hemoglobin 23 pg (25-35) Mean Corpuscular Hemoglobin Concent 33 g/dL (31-37) Red Cell Distribution Width 17.9 % (11.5-14.5) Platelet Count 195 x10^3/uL (140-400) Neutrophils (%) (Auto) 81 % (31-73) Lymphocytes (%) (Auto) 13 % (24-48) Monocytes (%) (Auto) 6 % (0-9) Eosinophils (%) (Auto) 1 % (0-3) Basophils (%) (Auto) 0 % (0-3) Neutrophils # (Auto) 7.8 x10^3/uL (1.8-7.7) Lymphocytes # (Auto) 1.2 x10^3/uL (1.0-4.8) Monocytes # (Auto) 0.5 x10^3/uL (0.0-1.1) Eosinophils # (Auto) 0.1 x10^3/uL (0.0-0.7) Basophils # (Auto) 0.0 x10^3/uL (0.0-0.2) Sodium Level 132 mmol/L (136-145) Potassium Level 3.4 mmol/L (3.5-5.1) Chloride Level 95 mmol/L (98-107) Carbon Dioxide Level 26 mmol/L (21-32) Anion Gap 11 (6-14) Blood Urea Nitrogen 43 mg/dL (7-20) Creatinine 1.1 mg/dL (0.6-1.0) Estimated GFR (Cockcroft-Gault) 50.0 BUN/Creatinine Ratio 39 (6-20) Glucose Level 277 mg/dL (70-99) Lactic Acid Level 2.5 mmol/L (0.4-2.0) Calcium Level 8.1 mg/dL (8.5-10.1) Magnesium Level 1.9 mg/dL (1.8-2.4) Iron Level 11 ug/dL (50-170) Total Iron Binding Capacity 151 ug/dL (250-450) Iron Saturation 7 % (15-34) Total Bilirubin 0.7 mg/dL (0.2-1.0) Aspartate Amino Transf (AST/SGOT) 92 U/L (15-37) Alanine Aminotransferase (ALT/SGPT) 34 U/L (14-59) Alkaline Phosphatase 251 U/L (46-116) Total Protein 6.5 g/dL (6.4-8.2) Albumin 1.8 g/dL (3.4-5.0) Albumin/Globulin Ratio 0.4 (1.0-1.7) Thyroid Stimulating Hormone (TSH) 0.660 uIU/mL (0.358-3.74) Test 04/20/19 16:45 04/20/19 18:10 04/20/19 19:25 04/21/19 03:41 O2 Saturation 83 % (92-99) 94 % (92-99) Arterial Blood pH 7.21 (7.35-7.45) 7.33 (7.35-7.45) Arterial Blood pCO2 at Patient Temp 60 mmHg (35-46) 40 mmHg (35-46) Arterial Blood pO2 at Patient Temp 58 mmHg (65-108) 79 mmHg (65-108) Arterial Blood HCO3 23 mmol/L (21-28) 20 mmol/L (21-28) Arterial Blood Base Excess -6 mmol/L (-3-3) -5 mmol/L (-3-3) FiO2 60 Glucose (Fingerstick) 263 mg/dL (70-99) 181 mg/dL (70-99) Test 04/21/19 08:05 04/21/19 09:15 04/21/19 11:35 04/21/19 12:15 White Blood Count 17.2 x10^3/uL (4.0-11.0) Red Blood Count 6.08 x10^6/uL (3.50-5.40) Hemoglobin 13.9 g/dL (12.0-15.5) Hematocrit 45.0 % (36.0-47.0) Mean Corpuscular Volume 73 fL (79-100) Mean Corpuscular Hemoglobin 23 pg (25-35) Mean Corpuscular Hemoglobin Concent 31 g/dL (31-37) Red Cell Distribution Width 18.5 % (11.5-14.5) Platelet Count 250 x10^3/uL (140-400) Sodium Level 136 mmol/L (136-145) Potassium Level 4.4 mmol/L (3.5-5.1) Chloride Level 99 mmol/L (98-107) Carbon Dioxide Level 15 mmol/L (21-32) Anion Gap 22 (6-14) Blood Urea Nitrogen 48 mg/dL (7-20) Creatinine 1.3 mg/dL (0.6-1.0) Estimated GFR (Cockcroft-Gault) 41.2 BUN/Creatinine Ratio 37 (6-20) Glucose Level 171 mg/dL (70-99) Calcium Level 8.1 mg/dL (8.5-10.1) Total Bilirubin 1.3 mg/dL (0.2-1.0) Aspartate Amino Transf (AST/SGOT) 196 U/L (15-37) Alanine Aminotransferase (ALT/SGPT) 47 U/L (14-59) Alkaline Phosphatase 308 U/L (46-116) Total Protein 6.5 g/dL (6.4-8.2) Albumin 2.7 g/dL (3.4-5.0) Albumin/Globulin Ratio 0.7 (1.0-1.7) Vancomycin Level Trough 26.2 mcg/mL (10.0-20.0) Vancomycin Last Dose Date 04/20/19 Vancomycin Last Dose Time 0800 O2 Saturation 99 % (92-99) Arterial Blood pH 7.31 (7.35-7.45) Arterial Blood pCO2 at Patient Temp 32 mmHg (35-46) Arterial Blood pO2 at Patient Temp 147 mmHg (65-108) Arterial Blood HCO3 16 mmol/L (21-28) Arterial Blood Base Excess -10 mmol/L (-3-3) FiO2 80 Glucose (Fingerstick) 199 mg/dL (70-99) Hepatitis A IgM Antibody Nonreactive (Nonreactive) Hepatitis B Surface Antigen Nonreactive (Nonreactive) Hepatitis B Core IgM Antibody Nonreactive (Nonreactive) Hepatitis C IgG Antibody Nonreactive (Nonreactive) Test 04/21/19 15:30 04/21/19 17:45 04/21/19 18:05 04/21/19 23:28 Urine Opiates Screen Neg (NEG) Urine Methadone Screen Neg (NEG) Urine Barbiturates Neg (NEG) Urine Phencyclidine Screen Neg (NEG) Urine Amphetamine/Methamphetamine Neg (NEG) Urine Benzodiazepines Screen Pos (NEG) Urine Cocaine Screen Neg (NEG) Urine Cannabinoids Screen Neg (NEG) Urine Ethyl Alcohol Neg (NEG) Lactic Acid Level 2.9 mmol/L (0.4-2.0) Glucose (Fingerstick) 196 mg/dL (70-99) 223 mg/dL (70-99) Test 04/22/19 05:33 04/22/19 05:34 Glucose (Fingerstick) 232 mg/dL (70-99) White Blood Count 22.2 x10^3/uL (4.0-11.0) Red Blood Count 4.95 x10^6/uL (3.50-5.40) Hemoglobin 11.0 g/dL (12.0-15.5) Hematocrit 36.0 % (36.0-47.0) Mean Corpuscular Volume 73 fL (79-100) Mean Corpuscular Hemoglobin 22 pg (25-35) Mean Corpuscular Hemoglobin Concent 31 g/dL (31-37) Red Cell Distribution Width 18.6 % (11.5-14.5) Platelet Count 137 x10^3/uL (140-400) Neutrophils (%) (Auto) 87 % (31-73) Lymphocytes (%) (Auto) 10 % (24-48) Monocytes (%) (Auto) 3 % (0-9) Eosinophils (%) (Auto) 0 % (0-3) Basophils (%) (Auto) 0 % (0-3) Neutrophils # (Auto) 19.3 x10^3/uL (1.8-7.7) Lymphocytes # (Auto) 2.1 x10^3/uL (1.0-4.8) Monocytes # (Auto) 0.7 x10^3/uL (0.0-1.1) Eosinophils # (Auto) 0.0 x10^3/uL (0.0-0.7) Basophils # (Auto) 0.1 x10^3/uL (0.0-0.2) Sodium Level 138 mmol/L (136-145) Potassium Level 3.9 mmol/L (3.5-5.1) Chloride Level 104 mmol/L (98-107) Carbon Dioxide Level 16 mmol/L (21-32) Anion Gap 18 (6-14) Blood Urea Nitrogen 47 mg/dL (7-20) Creatinine 1.5 mg/dL (0.6-1.0) Estimated GFR (Cockcroft-Gault) 35.0 BUN/Creatinine Ratio 31 (6-20) Glucose Level 257 mg/dL (70-99) Calcium Level 7.8 mg/dL (8.5-10.1) Total Bilirubin 1.3 mg/dL (0.2-1.0) Aspartate Amino Transf (AST/SGOT) 207 U/L (15-37) Alanine Aminotransferase (ALT/SGPT) 62 U/L (14-59) Alkaline Phosphatase 211 U/L (46-116) Total Protein 5.8 g/dL (6.4-8.2) Albumin 1.8 g/dL (3.4-5.0) Albumin/Globulin Ratio 0.5 (1.0-1.7) Laboratory Tests Test 04/21/19 08:05 04/21/19 09:15 04/21/19 11:35 04/21/19 12:15 White Blood Count 17.2 x10^3/uL (4.0-11.0) Red Blood Count 6.08 x10^6/uL (3.50-5.40) Hemoglobin 13.9 g/dL (12.0-15.5) Hematocrit 45.0 % (36.0-47.0) Mean Corpuscular Volume 73 fL (79-100) Mean Corpuscular Hemoglobin 23 pg (25-35) Mean Corpuscular Hemoglobin Concent 31 g/dL (31-37) Red Cell Distribution Width 18.5 % (11.5-14.5) Platelet Count 250 x10^3/uL (140-400) Sodium Level 136 mmol/L (136-145) Potassium Level 4.4 mmol/L (3.5-5.1) Chloride Level 99 mmol/L (98-107) Carbon Dioxide Level 15 mmol/L (21-32) Anion Gap 22 (6-14) Blood Urea Nitrogen 48 mg/dL (7-20) Creatinine 1.3 mg/dL (0.6-1.0) Estimated GFR (Cockcroft-Gault) 41.2 BUN/Creatinine Ratio 37 (6-20) Glucose Level 171 mg/dL (70-99) Calcium Level 8.1 mg/dL (8.5-10.1) Total Bilirubin 1.3 mg/dL (0.2-1.0) Aspartate Amino Transf (AST/SGOT) 196 U/L (15-37) Alanine Aminotransferase (ALT/SGPT) 47 U/L (14-59) Alkaline Phosphatase 308 U/L (46-116) Total Protein 6.5 g/dL (6.4-8.2) Albumin 2.7 g/dL (3.4-5.0) Albumin/Globulin Ratio 0.7 (1.0-1.7) Vancomycin Level Trough 26.2 mcg/mL (10.0-20.0) Vancomycin Last Dose Date 04/20/19 Vancomycin Last Dose Time 0800 O2 Saturation 99 % (92-99) Arterial Blood pH 7.31 (7.35-7.45) Arterial Blood pCO2 at Patient Temp 32 mmHg (35-46) Arterial Blood pO2 at Patient Temp 147 mmHg (65-108) Arterial Blood HCO3 16 mmol/L (21-28) Arterial Blood Base Excess -10 mmol/L (-3-3) FiO2 80 Glucose (Fingerstick) 199 mg/dL (70-99) Hepatitis A IgM Antibody Nonreactive (Nonreactive) Hepatitis B Surface Antigen Nonreactive (Nonreactive) Hepatitis B Core IgM Antibody Nonreactive (Nonreactive) Hepatitis C IgG Antibody Nonreactive (Nonreactive) Test 04/21/19 15:30 04/21/19 17:45 04/21/19 18:05 04/21/19 23:28 Urine Opiates Screen Neg (NEG) Urine Methadone Screen Neg (NEG) Urine Barbiturates Neg (NEG) Urine Phencyclidine Screen Neg (NEG) Urine Amphetamine/Methamphetamine Neg (NEG) Urine Benzodiazepines Screen Pos (NEG) Urine Cocaine Screen Neg (NEG) Urine Cannabinoids Screen Neg (NEG) Urine Ethyl Alcohol Neg (NEG) Lactic Acid Level 2.9 mmol/L (0.4-2.0) Glucose (Fingerstick) 196 mg/dL (70-99) 223 mg/dL (70-99) Test 04/22/19 05:33 04/22/19 05:34 Glucose (Fingerstick) 232 mg/dL (70-99) White Blood Count 22.2 x10^3/uL (4.0-11.0) Red Blood Count 4.95 x10^6/uL (3.50-5.40) Hemoglobin 11.0 g/dL (12.0-15.5) Hematocrit 36.0 % (36.0-47.0) Mean Corpuscular Volume 73 fL (79-100) Mean Corpuscular Hemoglobin 22 pg (25-35) Mean Corpuscular Hemoglobin Concent 31 g/dL (31-37) Red Cell Distribution Width 18.6 % (11.5-14.5) Platelet Count 137 x10^3/uL (140-400) Neutrophils (%) (Auto) 87 % (31-73) Lymphocytes (%) (Auto) 10 % (24-48) Monocytes (%) (Auto) 3 % (0-9) Eosinophils (%) (Auto) 0 % (0-3) Basophils (%) (Auto) 0 % (0-3) Neutrophils # (Auto) 19.3 x10^3/uL (1.8-7.7) Lymphocytes # (Auto) 2.1 x10^3/uL (1.0-4.8) Monocytes # (Auto) 0.7 x10^3/uL (0.0-1.1) Eosinophils # (Auto) 0.0 x10^3/uL (0.0-0.7) Basophils # (Auto) 0.1 x10^3/uL (0.0-0.2) Sodium Level 138 mmol/L (136-145) Potassium Level 3.9 mmol/L (3.5-5.1) Chloride Level 104 mmol/L (98-107) Carbon Dioxide Level 16 mmol/L (21-32) Anion Gap 18 (6-14) Blood Urea Nitrogen 47 mg/dL (7-20) Creatinine 1.5 mg/dL (0.6-1.0) Estimated GFR (Cockcroft-Gault) 35.0 BUN/Creatinine Ratio 31 (6-20) Glucose Level 257 mg/dL (70-99) Calcium Level 7.8 mg/dL (8.5-10.1) Total Bilirubin 1.3 mg/dL (0.2-1.0) Aspartate Amino Transf (AST/SGOT) 207 U/L (15-37) Alanine Aminotransferase (ALT/SGPT) 62 U/L (14-59) Alkaline Phosphatase 211 U/L (46-116) Total Protein 5.8 g/dL (6.4-8.2) Albumin 1.8 g/dL (3.4-5.0) Albumin/Globulin Ratio 0.5 (1.0-1.7) Microbiology 9/4/19 Urine Culture - Final, Complete 04/19/19 Urine Culture Result 1 (YODIT) - Final, Complete 04/19/19 Blood Culture - Final, Complete Medications Current Medications Sodium Chloride 1,000 ml @ 0 mls/hr 1X ONCE IV Last administered on 04/19/19at 20:10; Start 04/19/19 at 18:45; Stop 04/19/19 at 18:46; Status DC Ceftriaxone Sodium (Rocephin) 1 gm 1X ONCE IVP Last administered on 04/19/19at 19:17; Start 04/19/19 at 18:45; Stop 04/19/19 at 18:46; Status DC Sodium Chloride 1,560 ml @ 1,560 mls/hr Q1H IV ; Start 04/19/19 at 19:03; Status Cancel Vancomycin HCl (Vanco Per Pharmacy) 1 each PRN DAILY PRN MC SEE COMMENTS Last administered on 04/20/19at 14:29; Start 04/19/19 at 19:15; Stop 04/21/19 at 09:40; Status DC Vancomycin HCl 2 gm/Sodium Chloride 500 ml @ 250 mls/hr 1X ONCE IV Last administered on 04/19/19at 20:01; Start 04/19/19 at 19:15; Stop 04/19/19 at 21:14; Status DC Sodium Chloride 1,000 ml @ 1,560 mls/hr Q39M IV Last administered on 04/19/19at 19:17; Start 04/19/19 at 19:15; Stop 04/19/19 at 20:03; Status DC Ondansetron HCl (Zofran) 4 mg PRN Q8HRS PRN IV NAUSEA/VOMITING Last administered on 04/20/19at 09:36; Start 04/19/19 at 19:30; Stop 04/20/19 at 10:00; Status DC Acetaminophen (Tylenol) 650 mg PRN Q4HRS PRN PO FEVER; Start 04/19/19 at 19:30; Stop 04/20/19 at 19:29; Status DC Insulin Human Lispro (HumaLOG) 0-7 UNITS TIDWMEALS SQ Last administered on 04/20/19at 19:52; Start 04/20/19 at 08:00; Stop 04/21/19 at 07:48; Status DC Dextrose (Dextrose 50%-Water Syringe) 12.5 gm PRN Q15MIN PRN IV SEE COMMENTS; Start 04/19/19 at 19:30 Dextrose 250 ml PRN Q15MIN PRN IV SEE COMMENTS; Start 04/19/19 at 19:30 Vancomycin HCl 1.5 gm/Sodium Chloride 500 ml @ 250 mls/hr Q12H IV Last administered on 04/20/19at 20:04; Start 04/20/19 at 08:00; Stop 04/21/19 at 09:40; Status DC Vancomycin HCl (Vancomycin Trough Level) 1 each 1X ONCE MC Last administered on 04/21/19at 10:49; Start 04/21/19 at 07:30; Stop 04/21/19 at 07:31; Status DC Sodium Chloride 1,000 ml @ 80 mls/hr [id number] IV Last administered on 04/20/19at 02:46; Start 04/20/19 at 02:30; Stop 04/20/19 at 11:23; Status DC Insulin Human Lispro (HumaLOG) 4 units 1X ONCE SQ Last administered on 04/20/19at 04:04; Start 04/20/19 at 03:15; Stop 04/20/19 at 03:16; Status DC Ondansetron HCl (Zofran) 4 mg PRN Q6HRS PRN IV NAUSEA/VOMITING Last administered on 04/20/19at 16:04; Start 04/20/19 at 10:00 Sodium Chloride 500 ml @ 500 mls/hr 1X ONCE IV Last administered on 04/20/19at 11:30; Start 04/20/19 at 11:15; Stop 04/20/19 at 12:14; Status DC Potassium Chloride (Klor-Con) 40 meq 1X ONCE PO ; Start 04/20/19 at 11:30; Stop 04/20/19 at 11:31; Status Cancel Sodium Chloride 1,000 ml @ 150 mls/hr Q6H40M IV Last administered on 04/21/19at 23:04; Start 04/20/19 at 11:30 Pantoprazole Sodium (PROTONIX VIAL for IV PUSH) 40 mg DAILYAC IVP Last administered on 04/21/19at 09:05; Start 04/20/19 at 12:30 Potassium Chloride/Water 100 ml @ 100 mls/hr Q1H IV Last administered on 04/21/19at 07:22; Start 04/20/19 at 12:00; Stop 04/20/19 at 15:59; Status DC Metoprolol Tartrate (Lopressor) 25 mg BID PO ; Start 04/20/19 at 14:00; Stop 04/20/19 at 13:34; Status DC Metoprolol Tartrate (Lopressor Vial) 2.5 mg Q6HRS IVP Last administered on 04/20/19at 14:28; Start 04/20/19 at 14:30 Piperacillin Sod/ Tazobactam Sod 3.375 gm/Sodium Chloride 50 ml @ 100 mls/hr Q6HRS IV Last administered on 04/22/19at 05:38; Start 04/20/19 at 18:00 Sodium Chloride 1,000 ml @ 0 mls/hr 1X ONCE IV ; Start 04/20/19 at 15:45; Stop 04/20/19 at 15:49; Status DC Lactic Acid (Lac-Hydrin) 1 gauri BID TP Last administered on 04/21/19at 20:45; Start 04/20/19 at 21:00 Lorazepam (Ativan Inj) 1 mg PRN Q4HRS PRN IV ANXIETY / AGITATION; Start 04/20/19 at 16:15 Lorazepam (Ativan Inj) 1 mg PRN 1X ONCE IV ; Start 04/20/19 at 16:15; Stop 04/20/19 at 16:16; Status DC Propofol 100 ml @ As Directed STK-MED ONCE IV ; Start 04/20/19 at 16:42; Stop 04/20/19 at 16:42; Status DC Norepinephrine Bitartrate 250 ml @ 21 mls/hr CONT PRN IV SEE I/O RECORD Last administered on 04/21/19at 23:04; Start 04/20/19 at 17:15 Midazolam HCl (Versed) 5 mg STK-MED ONCE .ROUTE ; Start 04/20/19 at 17:04; Stop 04/20/19 at 17:05; Status DC Propofol 20 ml @ 0 mls/hr 1X ONCE IV Last administered on 04/20/19at 17:38; Start 04/20/19 at 17:15; Stop 04/20/19 at 17:16; Status DC Succinylcholine Chloride (Anectine) 80 mg 1X ONCE IV Last administered on 04/20/19 17:36; Start 04/20/19 at 17:30; Stop 04/20/19 at 17:31; Status DC Midazolam HCl (Versed) 5 mg 1X ONCE IV Last administered on 04/20/19at 17:38; Start 04/20/19 at 17:15; Stop 04/20/19 at 17:19; Status DC Midazolam HCl 100 ml @ 5 mls/hr CONT PRN IV SEE I/O RECORD Last administered on 04/22/19 04:59; Start 04/20/19 at 17:15 Propofol 100 ml @ 1.69 mls/hr CONT PRN IV SEE I/O RECORD Last administered on 04/20/19 17:36; Start 04/20/19 at 17:15 Fentanyl Citrate 30 ml @ 0 mls/hr CONT PRN PRN IV PER PROTOCOL Last administered on 04/22/19 04:59; Start 04/20/19 at 17:15 Naloxone HCl (Narcan) 0.4 mg PRN Q2MIN PRN IV SEE INSTRUCTIONS; Start 04/20/19 at 17:15 Sodium Chloride 1,000 ml @ 25 mls/hr Q24H IV Last administered on 04/21/19at 10:53; Start 04/20/19 at 17:12 Norepinephrine Bitartrate 250 ml @ 21.129 mls/ hr CONT PRN IV SEE I/O RECORD; Start 04/20/19 at 17:30; Status UNV Sodium Chloride 500 ml @ 500 mls/hr PRN Q1HR PRN IV LOW UO Last administered on 04/20/19at 19:52; Start 04/20/19 at 19:45 Dexmedetomidine HCl 400 mcg/ Sodium Chloride 100 ml @ 0 mls/hr CONT PRN IV SEDATION Last administered on 04/21/19at 23:04; Start 04/20/19 at 23:30 Sodium Chloride 500 ml @ 500 mls/hr 1X PRN PRN IV PER PROTOCOL; Start 04/20/19 at 23:30 Atropine Sulfate (ATROPINE 0.5mg SYRINGE) 0.5 mg PRN Q5MIN PRN IV SEE COMMENTS; Start 04/20/19 at 23:30 Albumin Human 100 ml @ 100 mls/hr 1X ONCE IV Last administered on 04/21/19at 01:34; Start 04/21/19 at 01:30; Stop 04/21/19 at 02:29; Status DC Sodium Chloride 1,000 ml @ 1,000 mls/hr 1X ONCE IV Last administered on 04/21/19at 05:39; Start 04/21/19 at 02:45; Stop 04/21/19 at 03:44; Status DC Albumin Human 500 ml @ 250 mls/hr Q2HR IV Last administered on 04/21/19at 06:28; Start 04/21/19 at 04:00; Stop 04/21/19 at 07:00; Status DC Vasopressin 40 unit/Dextrose 102 ml @ 6 mls/hr CONT PRN IV SEE I/O RECORD Last administered on 04/21/19at 18:02; Start 04/21/19 at 04:00 Epinephrine HCl 4 mg/Sodium Chloride 254 ml @ 42.935 mls/ hr CONT PRN IV SEE I/O RECORD; Start 04/21/19 at 05:00 Insulin Human Lispro (HumaLOG) 0-7 UNITS Q6HRS SQ Last administered on 04/22/19at 05:38; Start 04/21/19 at 12:00 Rocuronium [place] (Zemuron) 50 mg STK-MED ONCE .ROUTE ; Start 04/20/19 at 18:00; Stop 04/21/19 at 09:09; Status DC Sodium Chloride 1,000 ml @ 1,000 mls/hr 1X ONCE IV Last administered on 04/21/19at 10:53; Start 04/21/19 at 10:30; Stop 04/21/19 at 11:29; Status DC Lidocaine HCl (Xylocaine 2% Topical 5gm Tube) 5 gauri STK-MED ONCE TP ; Start 04/19/19 at 12:00; Stop 04/21/19 at 10:21; Status DC Acetaminophen (Tylenol Supp) 650 mg PRN Q6HRS PRN DE MILD PAIN / TEMP Last administered on 04/22/19at 00:39; Start 04/21/19 at 16:45 Enoxaparin Sodium (Lovenox 60mg Syringe) 60 mg Q12HR SQ Last administered on 04/21/19at 20:45; Start 04/21/19 at 21:00 Acetaminophen (Tylenol) 650 mg PRN Q6HRS PRN PEG MILD PAIN / TEMP; Start 04/22/19 at 00:15; Status Cancel Active Scripts Active Reported No Known Medications Prior To Admisstion (Info) Each 1 Each 1X Vitals/I & O Vital Sign - Last 24 Hours 04/21/19 04/21/19 04/21/19 04/21/19 07:45 08:00 08:05 08:05 Temp 98.4 98.4 Pulse 108 Resp 25 24 B/P (MAP) 118/60 (79) Pulse Ox 98 40 96 O2 Delivery Mechanical Ventilator Ventilator Room Air Room Air 04/21/19 04/21/19 04/21/19 04/21/19 08:57 09:00 10:00 11:00 Pulse 100 99 99 Resp 23 29 27 B/P (MAP) 119/59 (79) 127/45 (72) 135/58 (83) Pulse Ox 97 98 93 98 O2 Delivery Ventilator Ventilator Ventilator Ventilator 04/21/19 04/21/19 04/21/19 04/21/19 11:45 12:00 12:00 12:03 Temp 98.6 98.6 Pulse 98 96 Resp 28 31 B/P (MAP) 100/47 (64) 113/57 (75) Pulse Ox 98 100 96 O2 Delivery Ventilator Ventilator Mechanical Ventilator Ventilator 04/21/19 04/21/19 04/21/19 04/21/19 13:00 13:34 14:00 14:30 Pulse 99 101 101 Resp 28 29 28 B/P (MAP) 131/66 (87) 137/50 (79) 118/55 (76) Pulse Ox 97 96 99 99 O2 Delivery Ventilator Ventilator Ventilator Ventilator 04/21/19 04/21/19 04/21/19 04/21/19 15:00 15:45 16:00 16:00 Temp 103.2 103.2 Pulse 98 106 Resp 29 29 B/P (MAP) 123/55 (77) 123/55 (77) Pulse Ox 98 96 98 O2 Delivery Ventilator Ventilator Mechanical Ventilator Ventilator 04/21/19 04/21/19 04/21/19 04/21/19 16:15 16:48 17:00 17:27 Pulse 106 105 Resp 29 30 29 B/P (MAP) 118/53 (74) 102/50 (67) Pulse Ox 100 97 96 97 O2 Delivery Ventilator Ventilator Ventilator Ventilator 904/21/19 04/21/19 04/21/19 18:00 18:26 19:00 20:00 Pulse 104 104 Resp 30 30 28 B/P (MAP) 111/46 (67) 102/44 (63) Pulse Ox 92 92 98 O2 Delivery Ventilator Ventilator Ventilator Mechanical Ventilator 04/21/19 04/21/19 04/21/19 04/21/19 20:00 20:55 21:00 22:00 Temp 102.3 102.3 Pulse 99 101 99 Resp 27 27 28 B/P (MAP) 104/44 (64) 103/58 (73) 102/35 (57) Pulse Ox 98 100 100 100 O2 Delivery Ventilator Ventilator Ventilator Ventilator 04/21/19 04/21/19 04/21/19 04/21/19 23:00 23:32 23:37 23:45 Pulse 100 99 Resp 25 B/P (MAP) 98/42 (60) 100/44 117/43 (67) Pulse Ox 100 O2 Delivery Ventilator Mechanical Ventilator 04/21/19 04/22/19 04/22/19 04/22/19 23:50 00:00 01:00 02:00 Temp 103.0 103.0 Pulse 101 100 100 Resp 25 26 25 B/P (MAP) 111/40 (63) 101/57 (72) 98/49 (65) Pulse Ox 98 98 97 97 O2 Delivery Ventilator Ventilator Ventilator Ventilator 04/22/19 04/22/19 04/22/19 04/22/19 02:15 03:00 03:36 04:00 Temp 102.0 102.0 Pulse 101 100 Resp 23 21 B/P (MAP) 103/58 (73) 102/58 (73) Pulse Ox 98 97 98 O2 Delivery Ventilator Ventilator Mechanical Ventilator Ventilator 04/22/19 04/22/19 04/22/19 04/22/19 04:39 05:00 06:00 06:08 Temp 102.6 101.8 102.6 101.8 Pulse 101 100 Resp 23 21 B/P (MAP) 110/60 (77) 121/61 (81) Pulse Ox 98 97 97 98 O2 Delivery Ventilator Ventilator Ventilator Ventilator Intake and Output 04/21/19 04/21/19 04/22/19 15:00 23:00 07:00 Intake Total 1050 ml 2125 ml 2163 ml Output Total 220 ml 455 ml 395 ml Balance 830 ml 1670 ml 1768 ml ASHLY SIEGEL MD Apr 22, 2019 07:28
[2019-04-22] MEDS: AMMONIUM LACTATE 12% TOPICAL LOTION 226GM BOTTLE. TP SCH ×2 (08:40→21:08)
[2019-04-22 08:50] LABS: BASE EXCESS ABG -10 mmol/L (-3-3); HCO3 ABG 17 mmol/L (21-28); PCO2 ABG 40 mmHg (35-46); PO2 ABG 115 mmHg (65-108); SAT O2 ABG 98 % (92-99)
[2019-04-22 08:54] LABS: FIO2 ABG 60
[2019-04-22] MEDS: DEXMEDETOMIDINE 400 MCG in IV NORMAL SALINE 100ML 96 ML IV PRN ×2 (09:15→19:12)
[2019-04-22] MEDS: VASOPRESSIN 40 UNIT in IV DEXTROSE 5% 100ML 100 ML IV PRN (09:30)
--- NOTE | 2019-04-22 09:41 | PDOC ---
Infectious Disease Note Subjective Subjective Remains orally intubated/vent FiO2 60% Hypotensive, on pressor support Fevers Tmax 103. BC repeated ROS ROS unobtainable Vital Sign Vital Signs Vital Signs Date Time Temp Pulse Resp B/P (MAP) Pulse Ox O2 Delivery O2 Flow Rate FiO2 04/22/19 09:04 99.8 96 14 111/61 (78) 97 Ventilator 99.8 04/22/19 08:17 98.0 Physical Exam PHYSICAL EXAM GENERAL: Orally intubated, sedated, mitts HEENT: ETT/ OGT NECK: Supple, no JVP, no lymphadenopathy. LUNGS: Clear. HEART: S1, S2 regular. ABDOMEN: Soft, Umbilical hernia present. Large pannus present. EXTREMITIES: Both lower extremities have venous insufficiency, stasis dermatitis on both the legs posteriorly. SKIN: Warm to touch. sacral wound NEUROLOGIC: sedated on vent RIJ clean Labs Lab Laboratory Tests Test 04/21/19 11:35 04/21/19 12:15 04/21/19 15:30 04/21/19 17:45 Glucose (Fingerstick) 199 mg/dL (70-99) Hepatitis A IgM Antibody Nonreactive (Nonreactive) Hepatitis B Surface Antigen Nonreactive (Nonreactive) Hepatitis B Core IgM Antibody Nonreactive (Nonreactive) Hepatitis C IgG Antibody Nonreactive (Nonreactive) Urine Opiates Screen Neg (NEG) Urine Methadone Screen Neg (NEG) Urine Barbiturates Neg (NEG) Urine Phencyclidine Screen Neg (NEG) Urine Amphetamine/Methamphetamine Neg (NEG) Urine Benzodiazepines Screen Pos (NEG) Urine Cocaine Screen Neg (NEG) Urine Cannabinoids Screen Neg (NEG) Urine Ethyl Alcohol Neg (NEG) Lactic Acid Level 2.9 mmol/L (0.4-2.0) Test 04/21/19 18:05 04/21/19 23:28 04/22/19 05:33 04/22/19 05:34 Glucose (Fingerstick) 196 mg/dL (70-99) 223 mg/dL (70-99) 232 mg/dL (70-99) White Blood Count 22.2 x10^3/uL (4.0-11.0) Red Blood Count 4.95 x10^6/uL (3.50-5.40) Hemoglobin 11.0 g/dL (12.0-15.5) Hematocrit 36.0 % (36.0-47.0) Mean Corpuscular Volume 73 fL (79-100) Mean Corpuscular Hemoglobin 22 pg (25-35) Mean Corpuscular Hemoglobin Concent 31 g/dL (31-37) Red Cell Distribution Width 18.6 % (11.5-14.5) Platelet Count 137 x10^3/uL (140-400) Neutrophils (%) (Auto) 87 % (31-73) Lymphocytes (%) (Auto) 10 % (24-48) Monocytes (%) (Auto) 3 % (0-9) Eosinophils (%) (Auto) 0 % (0-3) Basophils (%) (Auto) 0 % (0-3) Neutrophils # (Auto) 19.3 x10^3/uL (1.8-7.7) Lymphocytes # (Auto) 2.1 x10^3/uL (1.0-4.8) Monocytes # (Auto) 0.7 x10^3/uL (0.0-1.1) Eosinophils # (Auto) 0.0 x10^3/uL (0.0-0.7) Basophils # (Auto) 0.1 x10^3/uL (0.0-0.2) Sodium Level 138 mmol/L (136-145) Potassium Level 3.9 mmol/L (3.5-5.1) Chloride Level 104 mmol/L (98-107) Carbon Dioxide Level 16 mmol/L (21-32) Anion Gap 18 (6-14) Blood Urea Nitrogen 47 mg/dL (7-20) Creatinine 1.5 mg/dL (0.6-1.0) Estimated GFR (Cockcroft-Gault) 35.0 BUN/Creatinine Ratio 31 (6-20) Glucose Level 257 mg/dL (70-99) Calcium Level 7.8 mg/dL (8.5-10.1) Total Bilirubin 1.3 mg/dL (0.2-1.0) Aspartate Amino Transf (AST/SGOT) 207 U/L (15-37) Alanine Aminotransferase (ALT/SGPT) 62 U/L (14-59) Alkaline Phosphatase 211 U/L (46-116) Total Protein 5.8 g/dL (6.4-8.2) Albumin 1.8 g/dL (3.4-5.0) Albumin/Globulin Ratio 0.5 (1.0-1.7) Test 04/22/19 08:40 04/22/19 08:50 O2 Saturation 98 % (92-99) Arterial Blood pH 7.24 (7.35-7.45) Arterial Blood pCO2 at Patient Temp 40 mmHg (35-46) Arterial Blood pO2 at Patient Temp 115 mmHg (65-108) Arterial Blood HCO3 17 mmol/L (21-28) Arterial Blood Base Excess -10 mmol/L (-3-3) FiO2 60 Glucose (Fingerstick) 242 mg/dL (70-99) Ultrasound IMPRESSION: 1. Heterogeneous enlarged nodular liver, may indicate chronic liver disease although hepatitis is possible. 2. Dilated gallbladder with gallbladder sludge and wall thickening, may relate to liver disease. If concern for acute cholecystitis HIDA scan can better evaluate gallbladder function. 3. Small upper abdominal ascites. 4. Splenomegaly. Micro 04/19. BLOOD CULTURE Final GRAM POSITIVE COCCI IN CLUSTERS, SUGGESTIVE OF STAPH, IN 1 OF 2 BOTTLES, ONE SET DRAWN. CALLED TO DERRICK HANNON RN ON 6S AT 15:45 ON 04/20/19 DW MT SENT TO [facility] FOR FURTHER WORKUP. AMMENDED REPORT; GRAM POSITIVE COCCI ARE NOW IN BOTH BOTTLES OF THIS SET. 2 OF 2 BOTTLES. 04/21. BC pending 04/19. URINE CULTURE RES 1 Final No growth Objective Assessment Sepsis with fever, leukocytosis. Procalcitonin >25 BC + with G + cocci ID pending Pneumonia Lactic acidosis. This may have been ischemic colon, but also sepsis is possible. Urinary tract infection versus hematuria. UC no growth Poor personal hygiene. Sacral decubitus. Status post fall. Abdominal pain. Large pelvic mass Transaminitis Plan Plan of Care Last dose vanc, 04/21. Trough 26.2, Cr 1.5, low UO Continue Zosyn Tapering levophed Dose Dapto times one F/u BC Sputum c/s am labs cont supportive care D/w nursing overall prognosis poor Consider palliative care for goal Attending Co-Sign Attending Co-Sign The patient was seen and interviewed as well as examined at the bedside. The chart was reviewed. The case was discussed. Agree with the plan of care. [place]NA BHAT APRN Apr 22, 2019 09:41 ADRIANA ESTRADA MD Apr 22, 2019 14:36
[2019-04-22 10:13] LABS: HEMATOCRIT 39.4 % (36.0-47.0); HEMOGLOBIN 11.8 g/dL (12.0-15.5); RED BLOOD COUNT 5.36 x10^6/uL (3.50-5.40); RED CELL DISTRIBUTION WIDTH 18.6 % (11.5-14.5); WHITE BLOOD COUNT 24.7 x10^3/uL (4.0-11.0)
[2019-04-22 10:54] LABS: PROTHROMBIN TIME PATIENT 23.2 SEC (11.7-14.0)
[2019-04-22 11:29] LABS: D-DIMER 5.98 ug/mlFEU (0.00-0.50)
--- NOTE | 2019-04-22 11:39 | PDOC ---
SURGICAL PROGRESS NOTE Subjective Pt remains critically ill, intubated and on critical care Vital Signs Vital Signs Date Time Temp Pulse Resp B/P (MAP) Pulse Ox O2 Delivery O2 Flow Rate FiO2 04/22/19 11:31 99 Ventilator 04/22/19 10:56 98.7 95 14 111/62 (78) 98.7 04/22/19 08:17 98.0 I&O Intake and Output 04/22/19 07:00 Intake Total 5338 ml Output Total 1070 ml Balance 4268 ml IV Total 5338 ml Output Urine Total 970 ml Gastric Drainage Total 100 ml PATIENT HAS A GUTIÉRREZ: Yes General: Other (non responsive) Abdomen: Soft, Other (morbidly obese, palpable supraumbilical hernia with well healed incision inferiorly, hernia partially reduced) Labs Laboratory Tests Test 04/20/19 16:45 04/20/19 18:10 04/20/19 19:25 04/21/19 03:41 O2 Saturation 83 % (92-99) 94 % (92-99) Arterial Blood pH 7.21 (7.35-7.45) 7.33 (7.35-7.45) Arterial Blood pCO2 at Patient Temp 60 mmHg (35-46) 40 mmHg (35-46) Arterial Blood pO2 at Patient Temp 58 mmHg (65-108) 79 mmHg (65-108) Arterial Blood HCO3 23 mmol/L (21-28) 20 mmol/L (21-28) Arterial Blood Base Excess -6 mmol/L (-3-3) -5 mmol/L (-3-3) FiO2 60 Glucose (Fingerstick) 263 mg/dL (70-99) 181 mg/dL (70-99) Test 04/21/19 08:05 04/21/19 09:15 04/21/19 11:35 04/21/19 12:15 White Blood Count 17.2 x10^3/uL (4.0-11.0) Red Blood Count 6.08 x10^6/uL (3.50-5.40) Hemoglobin 13.9 g/dL (12.0-15.5) Hematocrit 45.0 % (36.0-47.0) Mean Corpuscular Volume 73 fL (79-100) Mean Corpuscular Hemoglobin 23 pg (25-35) Mean Corpuscular Hemoglobin Concent 31 g/dL (31-37) Red Cell Distribution Width 18.5 % (11.5-14.5) Platelet Count 250 x10^3/uL (140-400) Sodium Level 136 mmol/L (136-145) Potassium Level 4.4 mmol/L (3.5-5.1) Chloride Level 99 mmol/L (98-107) Carbon Dioxide Level 15 mmol/L (21-32) Anion Gap 22 (6-14) Blood Urea Nitrogen 48 mg/dL (7-20) Creatinine 1.3 mg/dL (0.6-1.0) Estimated GFR (Cockcroft-Gault) 41.2 BUN/Creatinine Ratio 37 (6-20) Glucose Level 171 mg/dL (70-99) Calcium Level 8.1 mg/dL (8.5-10.1) Total Bilirubin 1.3 mg/dL (0.2-1.0) Aspartate Amino Transf (AST/SGOT) 196 U/L (15-37) Alanine Aminotransferase (ALT/SGPT) 47 U/L (14-59) Alkaline Phosphatase 308 U/L (46-116) Total Protein 6.5 g/dL (6.4-8.2) Albumin 2.7 g/dL (3.4-5.0) Albumin/Globulin Ratio 0.7 (1.0-1.7) Vancomycin Level Trough 26.2 mcg/mL (10.0-20.0) Vancomycin Last Dose Date 04/20/19 Vancomycin Last Dose Time 0800 O2 Saturation 99 % (92-99) Arterial Blood pH 7.31 (7.35-7.45) Arterial Blood pCO2 at Patient Temp 32 mmHg (35-46) Arterial Blood pO2 at Patient Temp 147 mmHg (65-108) Arterial Blood HCO3 16 mmol/L (21-28) Arterial Blood Base Excess -10 mmol/L (-3-3) FiO2 80 Glucose (Fingerstick) 199 mg/dL (70-99) Hepatitis A IgM Antibody Nonreactive (Nonreactive) Hepatitis B Surface Antigen Nonreactive (Nonreactive) Hepatitis B Core IgM Antibody Nonreactive (Nonreactive) Hepatitis C IgG Antibody Nonreactive (Nonreactive) Test 04/21/19 15:30 04/21/19 17:45 04/21/19 18:05 04/21/19 23:28 Urine Opiates Screen Neg (NEG) Urine Methadone Screen Neg (NEG) Urine Barbiturates Neg (NEG) Urine Phencyclidine Screen Neg (NEG) Urine Amphetamine/Methamphetamine Neg (NEG) Urine Benzodiazepines Screen Pos (NEG) Urine Cocaine Screen Neg (NEG) Urine Cannabinoids Screen Neg (NEG) Urine Ethyl Alcohol Neg (NEG) Lactic Acid Level 2.9 mmol/L (0.4-2.0) Glucose (Fingerstick) 196 mg/dL (70-99) 223 mg/dL (70-99) Test 04/22/19 05:33 04/22/19 05:34 04/22/19 08:40 04/22/19 08:50 Glucose (Fingerstick) 232 mg/dL (70-99) 242 mg/dL (70-99) White Blood Count 22.2 x10^3/uL (4.0-11.0) Red Blood Count 4.95 x10^6/uL (3.50-5.40) Hemoglobin 11.0 g/dL (12.0-15.5) Hematocrit 36.0 % (36.0-47.0) Mean Corpuscular Volume 73 fL (79-100) Mean Corpuscular Hemoglobin 22 pg (25-35) Mean Corpuscular Hemoglobin Concent 31 g/dL (31-37) Red Cell Distribution Width 18.6 % (11.5-14.5) Platelet Count 137 x10^3/uL (140-400) Neutrophils (%) (Auto) 87 % (31-73) Lymphocytes (%) (Auto) 10 % (24-48) Monocytes (%) (Auto) 3 % (0-9) Eosinophils (%) (Auto) 0 % (0-3) Basophils (%) (Auto) 0 % (0-3) Neutrophils # (Auto) 19.3 x10^3/uL (1.8-7.7) Lymphocytes # (Auto) 2.1 x10^3/uL (1.0-4.8) Monocytes # (Auto) 0.7 x10^3/uL (0.0-1.1) Eosinophils # (Auto) 0.0 x10^3/uL (0.0-0.7) Basophils # (Auto) 0.1 x10^3/uL (0.0-0.2) Sodium Level 138 mmol/L (136-145) Potassium Level 3.9 mmol/L (3.5-5.1) Chloride Level 104 mmol/L (98-107) Carbon Dioxide Level 16 mmol/L (21-32) Anion Gap 18 (6-14) Blood Urea Nitrogen 47 mg/dL (7-20) Creatinine 1.5 mg/dL (0.6-1.0) Estimated GFR (Cockcroft-Gault) 35.0 BUN/Creatinine Ratio 31 (6-20) Glucose Level 257 mg/dL (70-99) Calcium Level 7.8 mg/dL (8.5-10.1) Total Bilirubin 1.3 mg/dL (0.2-1.0) Aspartate Amino Transf (AST/SGOT) 207 U/L (15-37) Alanine Aminotransferase (ALT/SGPT) 62 U/L (14-59) Alkaline Phosphatase 211 U/L (46-116) Total Protein 5.8 g/dL (6.4-8.2) Albumin 1.8 g/dL (3.4-5.0) Albumin/Globulin Ratio 0.5 (1.0-1.7) O2 Saturation 98 % (92-99) Arterial Blood pH 7.24 (7.35-7.45) Arterial Blood pCO2 at Patient Temp 40 mmHg (35-46) Arterial Blood pO2 at Patient Temp 115 mmHg (65-108) Arterial Blood HCO3 17 mmol/L (21-28) Arterial Blood Base Excess -10 mmol/L (-3-3) FiO2 60 Test 04/22/19 10:00 White Blood Count 24.7 x10^3/uL (4.0-11.0) Red Blood Count 5.36 x10^6/uL (3.50-5.40) Hemoglobin 11.8 g/dL (12.0-15.5) Hematocrit 39.4 % (36.0-47.0) Mean Corpuscular Volume 74 fL (79-100) Mean Corpuscular Hemoglobin 22 pg (25-35) Mean Corpuscular Hemoglobin Concent 30 g/dL (31-37) Red Cell Distribution Width 18.6 % (11.5-14.5) Platelet Count 117 x10^3/uL (140-400) Prothrombin Time 23.2 SEC (11.7-14.0) Prothromb Time International Ratio 2.1 (0.8-1.1) Activated Partial Thromboplast Time 33 SEC (24-38) Fibrinogen 548 mg/dL (200-440) D-Dimer (Padmini) 5.98 ug/mlFEU (0.00-0.50) Laboratory Tests Test 04/21/19 12:15 04/21/19 15:30 04/21/19 17:45 04/21/19 18:05 Hepatitis A IgM Antibody Nonreactive (Nonreactive) Hepatitis B Surface Antigen Nonreactive (Nonreactive) Hepatitis B Core IgM Antibody Nonreactive (Nonreactive) Hepatitis C IgG Antibody Nonreactive (Nonreactive) Urine Opiates Screen Neg (NEG) Urine Methadone Screen Neg (NEG) Urine Barbiturates Neg (NEG) Urine Phencyclidine Screen Neg (NEG) Urine Amphetamine/Methamphetamine Neg (NEG) Urine Benzodiazepines Screen Pos (NEG) Urine Cocaine Screen Neg (NEG) Urine Cannabinoids Screen Neg (NEG) Urine Ethyl Alcohol Neg (NEG) Lactic Acid Level 2.9 mmol/L (0.4-2.0) Glucose (Fingerstick) 196 mg/dL (70-99) Test 04/21/19 23:28 04/22/19 05:33 04/22/19 05:34 04/22/19 08:40 Glucose (Fingerstick) 223 mg/dL (70-99) 232 mg/dL (70-99) White Blood Count 22.2 x10^3/uL (4.0-11.0) Red Blood Count 4.95 x10^6/uL (3.50-5.40) Hemoglobin 11.0 g/dL (12.0-15.5) Hematocrit 36.0 % (36.0-47.0) Mean Corpuscular Volume 73 fL (79-100) Mean Corpuscular Hemoglobin 22 pg (25-35) Mean Corpuscular Hemoglobin Concent 31 g/dL (31-37) Red Cell Distribution Width 18.6 % (11.5-14.5) Platelet Count 137 x10^3/uL (140-400) Neutrophils (%) (Auto) 87 % (31-73) Lymphocytes (%) (Auto) 10 % (24-48) Monocytes (%) (Auto) 3 % (0-9) Eosinophils (%) (Auto) 0 % (0-3) Basophils (%) (Auto) 0 % (0-3) Neutrophils # (Auto) 19.3 x10^3/uL (1.8-7.7) Lymphocytes # (Auto) 2.1 x10^3/uL (1.0-4.8) Monocytes # (Auto) 0.7 x10^3/uL (0.0-1.1) Eosinophils # (Auto) 0.0 x10^3/uL (0.0-0.7) Basophils # (Auto) 0.1 x10^3/uL (0.0-0.2) Sodium Level 138 mmol/L (136-145) Potassium Level 3.9 mmol/L (3.5-5.1) Chloride Level 104 mmol/L (98-107) Carbon Dioxide Level 16 mmol/L (21-32) Anion Gap 18 (6-14) Blood Urea Nitrogen 47 mg/dL (7-20) Creatinine 1.5 mg/dL (0.6-1.0) Estimated GFR (Cockcroft-Gault) 35.0 BUN/Creatinine Ratio 31 (6-20) Glucose Level 257 mg/dL (70-99) Calcium Level 7.8 mg/dL (8.5-10.1) Total Bilirubin 1.3 mg/dL (0.2-1.0) Aspartate Amino Transf (AST/SGOT) 207 U/L (15-37) Alanine Aminotransferase (ALT/SGPT) 62 U/L (14-59) Alkaline Phosphatase 211 U/L (46-116) Total Protein 5.8 g/dL (6.4-8.2) Albumin 1.8 g/dL (3.4-5.0) Albumin/Globulin Ratio 0.5 (1.0-1.7) O2 Saturation 98 % (92-99) Arterial Blood pH 7.24 (7.35-7.45) Arterial Blood pCO2 at Patient Temp 40 mmHg (35-46) Arterial Blood pO2 at Patient Temp 115 mmHg (65-108) Arterial Blood HCO3 17 mmol/L (21-28) Arterial Blood Base Excess -10 mmol/L (-3-3) FiO2 60 Test 04/22/19 08:50 04/22/19 10:00 Glucose (Fingerstick) 242 mg/dL (70-99) White Blood Count 24.7 x10^3/uL (4.0-11.0) Red Blood Count 5.36 x10^6/uL (3.50-5.40) Hemoglobin 11.8 g/dL (12.0-15.5) Hematocrit 39.4 % (36.0-47.0) Mean Corpuscular Volume 74 fL (79-100) Mean Corpuscular Hemoglobin 22 pg (25-35) Mean Corpuscular Hemoglobin Concent 30 g/dL (31-37) Red Cell Distribution Width 18.6 % (11.5-14.5) Platelet Count 117 x10^3/uL (140-400) Prothrombin Time 23.2 SEC (11.7-14.0) Prothromb Time International Ratio 2.1 (0.8-1.1) Activated Partial Thromboplast Time 33 SEC (24-38) Fibrinogen 548 mg/dL (200-440) D-Dimer (Padmini) 5.98 ug/mlFEU (0.00-0.50) Problem List Problems Medical Problems: (1) Diabetes Status: Acute (2) Fall Status: Acute (3) Severe sepsis Status: Acute (4) UTI (urinary tract infection) Status: Acute (5) Weakness Status: Acute Assessment/Plan incarcerated umbilical hernia pt is prohibitive surgical candidate, given aspiration pneumonia, urosepsis, cirrhosis and morbid obesity. pt remains critically ill from multiple components. Regarding small bowel obstruction, continue NGT and will monitor umbilical hernia, possible may be reduced given supportive care no family currently present NATE SHORT MD Apr 22, 2019 11:39
--- NOTE | 2019-04-22 11:55 | PDOC ---
SUBJECTIVE ROS asked to see for RADHA/ ATN OBJECTIVE Vital Signs Vital Signs Date Time Temp Pulse Resp B/P (MAP) Pulse Ox O2 Delivery O2 Flow Rate FiO2 04/22/19 11:31 99 Ventilator 04/22/19 10:56 98.7 95 14 111/62 (78) 98.7 04/22/19 08:17 98.0 I & 0 Intake and Output 04/22/19 06:59 Intake Total 5338 ml Output Total 1070 ml Balance 4268 ml IV Total 5338 ml Output Urine Total 970 ml Gastric Drainage Total 100 ml PHYSICAL EXAM Physical Exam GEN: Sedated and intubated on the Vent , In no visible distress EN: No EN Drainage, Mucous Membranes moist. Orally intubated NECK: no JVD, no JVP, Supple, no Thyromegaly CVS: S1S2, ? soft Murmur, No Gallop, No Rub,+3-4 Edema/ [id number] RESP: ? few basal Rales, occ Rhonchi,no Acc. Muscle Use GI: BS + ve, NO Bruit, Non Tender, Non Distended - morbidly obese : no CVA tenderness, no Suprapubic Tenderness DIAGNOSIS/ASSESSMENT Assessment & Plan RADHA - ATN- 2/2 Severe Hypotension , Septic Shock/ UO is much better on IVF and Pressors. Watch off of IVF Worsening bilateral infiltrates, likely aspiration pneumonia.Will minimize IVF Small bowel obstruction. She has been seen by Surgery and not a surgical candidate. Cirrhosis w/ portal hypertension- On CT scan Large pelvic mass /Lymphadenopathy WAG Met Acidosis - watch trend. IV Bicarb can be used - unabel to check Ketones at this faciilty Edema - IV ALbmin Poor Overall Prognosis - given MSOF and COMMENT/RELEVANT DATA Meds Current Medications Medications (Trade) Dose Ordered Sig/[place] Start Time Stop Time Status Last Admin Dose Admin Acetaminophen (Tylenol Supp) 650 mg PRN Q6HRS PRN 04/21/19 16:45 04/22/19 00:39 650 MG Acetaminophen (Tylenol) 650 mg PRN Q6HRS PRN 04/22/19 00:15 Cancel Albumin Human 500 ml @ 250 mls/hr Q2HR 04/21/19 04:00 04/21/19 07:00 DC 04/21/19 06:28 250 MLS/HR Atropine Sulfate (ATROPINE 0.5mg SYRINGE) 0.5 mg PRN Q5MIN PRN 04/20/19 23:30 Ceftriaxone Sodium (Rocephin) 1 gm 1X ONCE 04/19/19 18:45 04/19/19 18:46 DC 04/19/19 19:17 1 GM Dexmedetomidine HCl 400 mcg/ Sodium Chloride 100 ml @ 0 mls/hr CONT PRN 04/20/19 23:30 04/22/19 09:32 11.3 MLS/HR Dextrose 250 ml PRN Q15MIN PRN 04/19/19 19:30 Dextrose (Dextrose 50%-Water Syringe) 12.5 gm PRN Q15MIN PRN 04/19/19 19:30 Enoxaparin Sodium (Lovenox 60mg Syringe) 60 mg Q12HR 04/21/19 21:00 04/21/19 20:45 60 MG Epinephrine HCl 4 mg/Sodium Chloride 254 ml @ 42.935 mls/ hr CONT PRN 04/21/19 05:00 Fentanyl Citrate 30 ml @ 0 mls/hr CONT PRN PRN 04/20/19 17:15 04/22/19 04:59 2.5 MLS/HR Insulin Human Lispro (HumaLOG) 0-7 UNITS Q6HRS 04/21/19 12:00 04/22/19 05:38 2 UNITS Lactic Acid (Lac-Hydrin) 1 gauri BID 04/20/19 21:00 04/22/19 08:40 1 GAURI Lidocaine HCl (Xylocaine 2% Topical 5gm Tube) 5 gauri STK-MED ONCE 04/19/19 12:00 04/21/19 10:21 DC Lorazepam (Ativan Inj) 1 mg PRN 1X ONCE 04/20/19 16:15 04/20/19 16:16 DC Metoprolol Tartrate (Lopressor Vial) 2.5 mg Q6HRS 04/20/19 14:30 04/20/19 14:28 2.5 MG Metoprolol Tartrate (Lopressor) 25 mg BID 04/20/19 14:00 04/20/19 13:34 DC Midazolam HCl 100 ml @ 5 mls/hr CONT PRN 04/20/19 17:15 04/22/19 04:59 5 MLS/HR Midazolam HCl (Versed) 5 mg 1X ONCE 04/20/19 17:15 04/20/19 17:19 DC 04/20/19 17:38 5 MG Naloxone HCl (Narcan) 0.4 mg PRN Q2MIN PRN 04/20/19 17:15 Norepinephrine Bitartrate 250 ml @ 21.129 mls/ hr CONT PRN 04/20/19 17:30 UNV Ondansetron HCl (Zofran) 4 mg PRN Q6HRS PRN 04/20/19 10:00 04/20/19 16:04 4 MG Pantoprazole Sodium (PROTONIX VIAL for IV PUSH) 40 mg DAILYAC 04/20/19 12:30 04/22/19 07:27 40 MG Piperacillin Sod/ Tazobactam Sod 3.375 gm/Sodium Chloride 50 ml @ 100 mls/hr Q6HRS 04/20/19 18:00 04/22/19 05:38 100 MLS/HR Potassium Chloride/Water 100 ml @ 100 mls/hr Q1H 04/20/19 12:00 04/20/19 15:59 DC 04/21/19 07:22 100 MLS/HR Potassium Chloride (Klor-Con) 40 meq 1X ONCE 04/20/19 11:30 04/20/19 11:31 Cancel Propofol 100 ml @ 1.69 mls/hr CONT PRN 04/20/19 17:15 04/20/19 17:36 6.761 MLS/HR Rocuronium [place] (Zemuron) 50 mg STK-MED ONCE 04/20/19 18:00 04/21/19 09:09 DC Sodium Chloride 1,000 ml @ 1,000 mls/hr 1X ONCE 04/21/19 10:30 04/21/19 11:29 DC 04/21/19 10:53 1,000 MLS/HR Succinylcholine Chloride (Anectine) 80 mg 1X ONCE 04/20/19 17:30 04/20/19 17:31 DC 04/20/19 17:36 80 MG Vancomycin HCl (Vanco Per Pharmacy) 1 each PRN DAILY PRN 04/19/19 19:15 04/21/19 09:40 DC 04/20/19 14:29 1 EACH Vancomycin HCl (Vancomycin Trough Level) 1 each 1X ONCE 04/21/19 07:30 04/21/19 07:31 DC 04/21/19 10:49 1 EACH Vancomycin HCl 1.5 gm/Sodium Chloride 500 ml @ 250 mls/hr Q12H 04/20/19 08:00 04/21/19 09:40 DC 04/20/19 20:04 250 MLS/HR Vancomycin HCl 2 gm/Sodium Chloride 500 ml @ 250 mls/hr 1X ONCE 04/19/19 19:15 04/19/19 21:14 DC 04/19/19 20:01 250 MLS/HR Vasopressin 40 unit/Dextrose 102 ml @ 6 mls/hr CONT PRN 04/21/19 04:00 04/22/19 09:31 6 MLS/HR Lab Laboratory Tests Test 04/21/19 12:15 04/21/19 15:30 04/21/19 17:45 04/21/19 18:05 Hepatitis A IgM Antibody Nonreactive (Nonreactive) Hepatitis B Surface Antigen Nonreactive (Nonreactive) Hepatitis B Core IgM Antibody Nonreactive (Nonreactive) Hepatitis C IgG Antibody Nonreactive (Nonreactive) Urine Opiates Screen Neg (NEG) Urine Methadone Screen Neg (NEG) Urine Barbiturates Neg (NEG) Urine Phencyclidine Screen Neg (NEG) Urine Amphetamine/Methamphetamine Neg (NEG) Urine Benzodiazepines Screen Pos (NEG) Urine Cocaine Screen Neg (NEG) Urine Cannabinoids Screen Neg (NEG) Urine Ethyl Alcohol Neg (NEG) Lactic Acid Level 2.9 mmol/L (0.4-2.0) Glucose (Fingerstick) 196 mg/dL (70-99) Test 04/21/19 23:28 04/22/19 05:33 04/22/19 05:34 04/22/19 08:40 Glucose (Fingerstick) 223 mg/dL (70-99) 232 mg/dL (70-99) White Blood Count 22.2 x10^3/uL (4.0-11.0) Red Blood Count 4.95 x10^6/uL (3.50-5.40) Hemoglobin 11.0 g/dL (12.0-15.5) Hematocrit 36.0 % (36.0-47.0) Mean Corpuscular Volume 73 fL (79-100) Mean Corpuscular Hemoglobin 22 pg (25-35) Mean Corpuscular Hemoglobin Concent 31 g/dL (31-37) Red Cell Distribution Width 18.6 % (11.5-14.5) Platelet Count 137 x10^3/uL (140-400) Neutrophils (%) (Auto) 87 % (31-73) Lymphocytes (%) (Auto) 10 % (24-48) Monocytes (%) (Auto) 3 % (0-9) Eosinophils (%) (Auto) 0 % (0-3) Basophils (%) (Auto) 0 % (0-3) Neutrophils # (Auto) 19.3 x10^3/uL (1.8-7.7) Lymphocytes # (Auto) 2.1 x10^3/uL (1.0-4.8) Monocytes # (Auto) 0.7 x10^3/uL (0.0-1.1) Eosinophils # (Auto) 0.0 x10^3/uL (0.0-0.7) Basophils # (Auto) 0.1 x10^3/uL (0.0-0.2) Sodium Level 138 mmol/L (136-145) Potassium Level 3.9 mmol/L (3.5-5.1) Chloride Level 104 mmol/L (98-107) Carbon Dioxide Level 16 mmol/L (21-32) Anion Gap 18 (6-14) Blood Urea Nitrogen 47 mg/dL (7-20) Creatinine 1.5 mg/dL (0.6-1.0) Estimated GFR (Cockcroft-Gault) 35.0 BUN/Creatinine Ratio 31 (6-20) Glucose Level 257 mg/dL (70-99) Calcium Level 7.8 mg/dL (8.5-10.1) Total Bilirubin 1.3 mg/dL (0.2-1.0) Aspartate Amino Transf (AST/SGOT) 207 U/L (15-37) Alanine Aminotransferase (ALT/SGPT) 62 U/L (14-59) Alkaline Phosphatase 211 U/L (46-116) Total Protein 5.8 g/dL (6.4-8.2) Albumin 1.8 g/dL (3.4-5.0) Albumin/Globulin Ratio 0.5 (1.0-1.7) O2 Saturation 98 % (92-99) Arterial Blood pH 7.24 (7.35-7.45) Arterial Blood pCO2 at Patient Temp 40 mmHg (35-46) Arterial Blood pO2 at Patient Temp 115 mmHg (65-108) Arterial Blood HCO3 17 mmol/L (21-28) Arterial Blood Base Excess -10 mmol/L (-3-3) FiO2 60 Test 04/22/19 08:50 04/22/19 10:00 Glucose (Fingerstick) 242 mg/dL (70-99) White Blood Count 24.7 x10^3/uL (4.0-11.0) Red Blood Count 5.36 x10^6/uL (3.50-5.40) Hemoglobin 11.8 g/dL (12.0-15.5) Hematocrit 39.4 % (36.0-47.0) Mean Corpuscular Volume 74 fL (79-100) Mean Corpuscular Hemoglobin 22 pg (25-35) Mean Corpuscular Hemoglobin Concent 30 g/dL (31-37) Red Cell Distribution Width 18.6 % (11.5-14.5) Platelet Count 117 x10^3/uL (140-400) Prothrombin Time 23.2 SEC (11.7-14.0) Prothromb Time International Ratio 2.1 (0.8-1.1) Activated Partial Thromboplast Time 33 SEC (24-38) Fibrinogen 548 mg/dL (200-440) D-Dimer (Padmini) 5.98 ug/mlFEU (0.00-0.50) Results All relevant outside records, renal labs, imaging studies, telemetry/EKG's were reviewed. DELBERT VILLASEÑOR MD Apr 22, 2019 11:55
[2019-04-22] MEDS: ALBUMIN HUMAN 25% 100 ML IV SCH ×2 (13:46→21:08)
[2019-04-22] MEDS ORDERED: NORMAL SALINE IV ONE (16:00)
[2019-04-22] MEDS ORDERED: DAPTOMYCIN IV ONE (16:00)
[2019-04-22] MEDS: IV NORMAL SALINE 1000ML BAG 1,000 ML IV SCH (17:12)
--- NOTE | 2019-04-22 18:46 | NUR ---
PT'S FEVER CAME DOWN WITH COOLING BLANKET THIS SHIFT. CONTINUE Q2 HOUR TURN AND FREQUENT ORAL CARE. LOVENOX DISCONTINUED PLTS HAVE DECREASED. SPOKE WITH ON PHONE TODAY TO GIVE UPDATE. WILL CONTINUE TO ASSESS.
[2019-04-23] VITALS (25 sets, daily range): BP systolic 95–160; BP diastolic 37–79
[2019-04-23] MEDS: VASOPRESSIN 40 UNIT in IV DEXTROSE 5% 100ML 100 ML IV PRN ×2 (02:02→21:16)
[2019-04-23] MEDS: MIDAZOLAM 100mg/100ml NS BAG 100 ML IV PRN (02:02)
[2019-04-23] MEDS: DEXMEDETOMIDINE 400 MCG in IV NORMAL SALINE 100ML 96 ML IV PRN ×3 (02:03→19:04)
[2019-04-23] MEDS: METOPROLOL TARTRATE 5 MG/5 ML VIAL. IVP SCH ×3 (06:00→18:00)
--- NOTE | 2019-04-23 06:08 | PDOC ---
PULMONARY PROGRESS NOTES Subjective on vent, on peep 8, fio2 40%, sedated versed, fentanyl, precedex, small ett secretion, on levo, vaso, no fever Vitals Vital Signs Date Time Temp Pulse Resp B/P (MAP) Pulse Ox O2 Delivery O2 Flow Rate FiO2 04/23/19 06:00 98 20 128/67 (87) 99 Ventilator 04/23/19 04:00 98.0 98.0 04/22/19 16:17 98.0 Comments ros as mentioned as above discussed w rn other sys otherwise neg on vent sedated HEENT: Other (nc at perrl nose clear orally intubated neck no lad no thyromegaly) Lungs: Other (deminished) Cardiovascular: S1, S2 Abdomen: Other (distended obese deminished bs) Extremities: Other (edema) Skin: Warm Labs Laboratory Tests Test 04/21/19 08:05 04/21/19 09:15 04/21/19 11:35 04/21/19 12:15 White Blood Count 17.2 x10^3/uL (4.0-11.0) Red Blood Count 6.08 x10^6/uL (3.50-5.40) Hemoglobin 13.9 g/dL (12.0-15.5) Hematocrit 45.0 % (36.0-47.0) Mean Corpuscular Volume 73 fL (79-100) Mean Corpuscular Hemoglobin 23 pg (25-35) Mean Corpuscular Hemoglobin Concent 31 g/dL (31-37) Red Cell Distribution Width 18.5 % (11.5-14.5) Platelet Count 250 x10^3/uL (140-400) Sodium Level 136 mmol/L (136-145) Potassium Level 4.4 mmol/L (3.5-5.1) Chloride Level 99 mmol/L (98-107) Carbon Dioxide Level 15 mmol/L (21-32) Anion Gap 22 (6-14) Blood Urea Nitrogen 48 mg/dL (7-20) Creatinine 1.3 mg/dL (0.6-1.0) Estimated GFR (Cockcroft-Gault) 41.2 BUN/Creatinine Ratio 37 (6-20) Glucose Level 171 mg/dL (70-99) Calcium Level 8.1 mg/dL (8.5-10.1) Total Bilirubin 1.3 mg/dL (0.2-1.0) Aspartate Amino Transf (AST/SGOT) 196 U/L (15-37) Alanine Aminotransferase (ALT/SGPT) 47 U/L (14-59) Alkaline Phosphatase 308 U/L (46-116) Total Protein 6.5 g/dL (6.4-8.2) Albumin 2.7 g/dL (3.4-5.0) Albumin/Globulin Ratio 0.7 (1.0-1.7) Vancomycin Level Trough 26.2 mcg/mL (10.0-20.0) Vancomycin Last Dose Date 04/20/19 Vancomycin Last Dose Time 0800 O2 Saturation 99 % (92-99) Arterial Blood pH 7.31 (7.35-7.45) Arterial Blood pCO2 at Patient Temp 32 mmHg (35-46) Arterial Blood pO2 at Patient Temp 147 mmHg (65-108) Arterial Blood HCO3 16 mmol/L (21-28) Arterial Blood Base Excess -10 mmol/L (-3-3) FiO2 80 Glucose (Fingerstick) 199 mg/dL (70-99) Hepatitis A IgM Antibody Nonreactive (Nonreactive) Hepatitis B Surface Antigen Nonreactive (Nonreactive) Hepatitis B Core IgM Antibody Nonreactive (Nonreactive) Hepatitis C IgG Antibody Nonreactive (Nonreactive) Test 04/21/19 15:30 04/21/19 17:45 04/21/19 18:05 04/21/19 23:28 Urine Opiates Screen Neg (NEG) Urine Methadone Screen Neg (NEG) Urine Barbiturates Neg (NEG) Urine Phencyclidine Screen Neg (NEG) Urine Amphetamine/Methamphetamine Neg (NEG) Urine Benzodiazepines Screen Pos (NEG) Urine Cocaine Screen Neg (NEG) Urine Cannabinoids Screen Neg (NEG) Urine Ethyl Alcohol Neg (NEG) Lactic Acid Level 2.9 mmol/L (0.4-2.0) Glucose (Fingerstick) 196 mg/dL (70-99) 223 mg/dL (70-99) Test 04/22/19 05:33 04/22/19 05:34 04/22/19 08:40 04/22/19 08:50 Glucose (Fingerstick) 232 mg/dL (70-99) 242 mg/dL (70-99) White Blood Count 22.2 x10^3/uL (4.0-11.0) Red Blood Count 4.95 x10^6/uL (3.50-5.40) Hemoglobin 11.0 g/dL (12.0-15.5) Hematocrit 36.0 % (36.0-47.0) Mean Corpuscular Volume 73 fL (79-100) Mean Corpuscular Hemoglobin 22 pg (25-35) Mean Corpuscular Hemoglobin Concent 31 g/dL (31-37) Red Cell Distribution Width 18.6 % (11.5-14.5) Platelet Count 137 x10^3/uL (140-400) Neutrophils (%) (Auto) 87 % (31-73) Lymphocytes (%) (Auto) 10 % (24-48) Monocytes (%) (Auto) 3 % (0-9) Eosinophils (%) (Auto) 0 % (0-3) Basophils (%) (Auto) 0 % (0-3) Neutrophils # (Auto) 19.3 x10^3/uL (1.8-7.7) Lymphocytes # (Auto) 2.1 x10^3/uL (1.0-4.8) Monocytes # (Auto) 0.7 x10^3/uL (0.0-1.1) Eosinophils # (Auto) 0.0 x10^3/uL (0.0-0.7) Basophils # (Auto) 0.1 x10^3/uL (0.0-0.2) Sodium Level 138 mmol/L (136-145) Potassium Level 3.9 mmol/L (3.5-5.1) Chloride Level 104 mmol/L (98-107) Carbon Dioxide Level 16 mmol/L (21-32) Anion Gap 18 (6-14) Blood Urea Nitrogen 47 mg/dL (7-20) Creatinine 1.5 mg/dL (0.6-1.0) Estimated GFR (Cockcroft-Gault) 35.0 BUN/Creatinine Ratio 31 (6-20) Glucose Level 257 mg/dL (70-99) Calcium Level 7.8 mg/dL (8.5-10.1) Total Bilirubin 1.3 mg/dL (0.2-1.0) Aspartate Amino Transf (AST/SGOT) 207 U/L (15-37) Alanine Aminotransferase (ALT/SGPT) 62 U/L (14-59) Alkaline Phosphatase 211 U/L (46-116) Total Protein 5.8 g/dL (6.4-8.2) Albumin 1.8 g/dL (3.4-5.0) Albumin/Globulin Ratio 0.5 (1.0-1.7) O2 Saturation 98 % (92-99) Arterial Blood pH 7.24 (7.35-7.45) Arterial Blood pCO2 at Patient Temp 40 mmHg (35-46) Arterial Blood pO2 at Patient Temp 115 mmHg (65-108) Arterial Blood HCO3 17 mmol/L (21-28) Arterial Blood Base Excess -10 mmol/L (-3-3) FiO2 60 Test 04/22/19 10:00 04/22/19 12:52 04/22/19 23:22 White Blood Count 24.7 x10^3/uL (4.0-11.0) Red Blood Count 5.36 x10^6/uL (3.50-5.40) Hemoglobin 11.8 g/dL (12.0-15.5) Hematocrit 39.4 % (36.0-47.0) Mean Corpuscular Volume 74 fL (79-100) Mean Corpuscular Hemoglobin 22 pg (25-35) Mean Corpuscular Hemoglobin Concent 30 g/dL (31-37) Red Cell Distribution Width 18.6 % (11.5-14.5) Platelet Count 117 x10^3/uL (140-400) Prothrombin Time 23.2 SEC (11.7-14.0) Prothromb Time International Ratio 2.1 (0.8-1.1) Activated Partial Thromboplast Time 33 SEC (24-38) Fibrinogen 548 mg/dL (200-440) D-Dimer (Padmini) 5.98 ug/mlFEU (0.00-0.50) Glucose (Fingerstick) 247 mg/dL (70-99) 256 mg/dL (70-99) Laboratory Tests Test 04/22/19 08:40 04/22/19 08:50 04/22/19 10:00 04/22/19 12:52 O2 Saturation 98 % (92-99) Arterial Blood pH 7.24 (7.35-7.45) Arterial Blood pCO2 at Patient Temp 40 mmHg (35-46) Arterial Blood pO2 at Patient Temp 115 mmHg (65-108) Arterial Blood HCO3 17 mmol/L (21-28) Arterial Blood Base Excess -10 mmol/L (-3-3) FiO2 60 Glucose (Fingerstick) 242 mg/dL (70-99) 247 mg/dL (70-99) White Blood Count 24.7 x10^3/uL (4.0-11.0) Red Blood Count 5.36 x10^6/uL (3.50-5.40) Hemoglobin 11.8 g/dL (12.0-15.5) Hematocrit 39.4 % (36.0-47.0) Mean Corpuscular Volume 74 fL (79-100) Mean Corpuscular Hemoglobin 22 pg (25-35) Mean Corpuscular Hemoglobin Concent 30 g/dL (31-37) Red Cell Distribution Width 18.6 % (11.5-14.5) Platelet Count 117 x10^3/uL (140-400) Prothrombin Time 23.2 SEC (11.7-14.0) Prothromb Time International Ratio 2.1 (0.8-1.1) Activated Partial Thromboplast Time 33 SEC (24-38) Fibrinogen 548 mg/dL (200-440) D-Dimer (Padmini) 5.98 ug/mlFEU (0.00-0.50) Test 04/22/19 23:22 Glucose (Fingerstick) 256 mg/dL (70-99) Medications Active Scripts Medications Dose Route/Sig Max Daily Dose Days Date Category No Known Medications Prior To Admisstion (Info) Each 1 Each 1X 04/20/19 Reported Comments cxr reviewed 04/23 Increasing bilateral lower lobe left greater than right atelectasis and/or infiltrate. ett ok Impression . IMPRESSION: 1. Acute hypercapnic respiratory failure secondary to multifactorial etiologies and likely underlying hypovolemic and septic shock. 2. Worsening bilateral infiltrates, likely related to aspiration pneumonia. 3. Acute kidney injury secondary to hypotension and shock. 4. Small bowel obstruction. She has been seen by Surgery and not a surgical candidate. Over 2 liters of fluid came out from her orogastric tube upon insertion. 5. Chronic lymphedema of the lower extremities. 6. Leukocytosis. 7. Moderate protein-calorie malnutrition. 8. fever, improving 9. bacteremia, gram +cocci Plan . RECOMMENDATIONS: 1. Continue vent support, setting reviewed, will decrease peep to 6. titrate fi02 to keep sat >93%, not stable for sbt 2. Broad-spectrum antibiotic per Infectious Disease recommendations. 3. Follow all cultures. 4. May need Renal consultation and need for dialysis if urine output does not improve. 5. Follow Surgery recommendations. 6. Follow GI recommendations. 7. DVT and stress ulcer prophylaxis. 8. Prognosis appears to be grim. Palliative Care consulted discussed w DORON Demarco MD Apr 23, 2019 06:08
[2019-04-23] MEDS: PIPERACILLIN/TAZOBACTAM 3.375 GM in IV NORMAL SALINE 50ML 50 ML IV SCH ×3 (06:18→17:21)
[2019-04-23] MEDS: INSULIN LISPRO 300 UNITS/3 ML VIAL. SQ SCH ×3 (06:19→18:06)
[2019-04-23] MEDS: NOREPINEPHRIN 8MG/250ML PREMIX 250 ML IV PRN (06:19)
[2019-04-23 06:47] LABS: BASO % 0 % (0-3); EOS # 0.1 x10^3/uL (0.0-0.7); EOS % 1 % (0-3); HEMATOCRIT 34.9 % (36.0-47.0); LYMPH # 1.4 x10^3/uL (1.0-4.8); LYMPH % 7 % (24-48); MEAN CORPUSCULAR HEMOGLOBIN 23 pg (25-35); MEAN CORPUSCULAR HGB CONC 32 g/dL (31-37); MEAN CORPUSCULAR VOLUME 72 fL (79-100); MONO # 0.7 x10^3/uL (0.0-1.1); MONO % 4 % (0-9); NEUT # 16.7 x10^3/uL (1.8-7.7); NEUT % 88 % (31-73); PLATELET COUNT 82 x10^3/uL (140-400); RED BLOOD COUNT 4.85 x10^6/uL (3.50-5.40); RED CELL DISTRIBUTION WIDTH 18.6 % (11.5-14.5)
[2019-04-23 06:52] LABS: ALBUMIN 2.2 g/dL (3.4-5.0); ALBUMIN/GLOBULIN RATIO 0.6 (1.0-1.7); CALCIUM 8.5 mg/dL (8.5-10.1); CREATININE 1.2 mg/dL (0.6-1.0); GFR 45.2; TOTAL BILIRUBIN 1.2 mg/dL (0.2-1.0); TOTAL PROTEIN 5.9 g/dL (6.4-8.2)
[2019-04-23] MEDS: PANTOPRAZOLE IV PUSH 40 MG VIAL. IVP SCH (07:45)
[2019-04-23 07:48] LABS: % BANDS 16 % (0-9); % EOS 2 % (0-5); % LYMPHS 6 % (24-48); % MONOS 1 % (0-10); % SEGS 75 % (35-66)
[2019-04-23 07:49] LABS: PLATELET CLUMP PRESENT
[2019-04-23 07:51] LABS: PLT ESTIMATE DECREASED (ADEQUATE)
--- NOTE | 2019-04-23 08:27 | RAD ---
AP portable chest radiograph 04/23/2019 Clinical History: Pneumonia. Respiratory failure. An AP semierect portable digital radiograph of the chest was obtained. Comparison study is dated 04/21/2019. The patient is rotated to the right. The ET tube, NG tube and right internal jugular central venous catheter are unchanged in position. The cardiac silhouette is mildly enlarged. The thoracic aorta is tortuous. Bilateral perihilar infiltrates are again seen essentially unchanged. Bilateral lower lobe atelectasis and/or infiltrate, left greater than right appear increased. There are probable small bilateral pleural effusions. No pneumothorax is seen. The osseous structures are unchanged. Impression: Increasing bilateral lower lobe left greater than right atelectasis and/or infiltrate. Electronically signed by: Rei Jerry MD (04/23/2019 8:24 AM) [facility]
[2019-04-23] MEDS: ALBUMIN HUMAN 25% 100 ML IV SCH ×3 (08:35→20:55)
[2019-04-23] MEDS: AMMONIUM LACTATE 12% TOPICAL LOTION 226GM BOTTLE. TP SCH ×2 (08:59→20:56)
--- NOTE | 2019-04-23 09:00 | PDOC ---
Infectious Disease Note Subjective Subjective Remains orally intubated/vent FiO2 down to 40% Hypotensive, on Levophed No fevers last 24 hours ROS ROS unobtainable Vital Sign Vital Signs Vital Signs Date Time Temp Pulse Resp B/P (MAP) Pulse Ox O2 Delivery O2 Flow Rate FiO2 04/23/19 08:00 Mechanical Ventilator 04/23/19 08:00 98.2 97 20 102/60 (74) 100 98.2 04/22/19 16:17 98.0 Physical Exam PHYSICAL EXAM GENERAL: Orally intubated, sedated, mitts HEENT: Pupils equal, small. ETT/ OGT NECK: Supple. Left EJ LUNGS: Clear. HEART: S1, S2 regular. ABDOMEN: Soft, Umbilical hernia present. Large pannus present. EXTREMITIES: Both lower extremities have venous insufficiency, stasis dermatitis on both the legs posteriorly. Trace edema SKIN: Warm to touch. sacral wound NEUROLOGIC: Sedated on vent RIJ clean Labs Lab Laboratory Tests Test 04/22/19 10:00 04/22/19 12:52 04/22/19 23:22 04/23/19 06:15 White Blood Count 24.7 x10^3/uL (4.0-11.0) 19.0 x10^3/uL (4.0-11.0) Red Blood Count 5.36 x10^6/uL (3.50-5.40) 4.85 x10^6/uL (3.50-5.40) Hemoglobin 11.8 g/dL (12.0-15.5) 11.0 g/dL (12.0-15.5) Hematocrit 39.4 % (36.0-47.0) 34.9 % (36.0-47.0) Mean Corpuscular Volume 74 fL (79-100) 72 fL (79-100) Mean Corpuscular Hemoglobin 22 pg (25-35) 23 pg (25-35) Mean Corpuscular Hemoglobin Concent 30 g/dL (31-37) 32 g/dL (31-37) Red Cell Distribution Width 18.6 % (11.5-14.5) 18.6 % (11.5-14.5) Platelet Count 117 x10^3/uL (140-400) 82 x10^3/uL (140-400) Prothrombin Time 23.2 SEC (11.7-14.0) Prothromb Time International Ratio 2.1 (0.8-1.1) Activated Partial Thromboplast Time 33 SEC (24-38) Fibrinogen 548 mg/dL (200-440) D-Dimer (Padmini) 5.98 ug/mlFEU (0.00-0.50) Glucose (Fingerstick) 247 mg/dL (70-99) 256 mg/dL (70-99) 248 mg/dL (70-99) Neutrophils (%) (Auto) 88 % (31-73) Lymphocytes (%) (Auto) 7 % (24-48) Monocytes (%) (Auto) 4 % (0-9) Eosinophils (%) (Auto) 1 % (0-3) Basophils (%) (Auto) 0 % (0-3) Neutrophils # (Auto) 16.7 x10^3/uL (1.8-7.7) Lymphocytes # (Auto) 1.4 x10^3/uL (1.0-4.8) Monocytes # (Auto) 0.7 x10^3/uL (0.0-1.1) Eosinophils # (Auto) 0.1 x10^3/uL (0.0-0.7) Basophils # (Auto) 0.0 x10^3/uL (0.0-0.2) Segmented Neutrophils % 75 % (35-66) Band Neutrophils % 16 % (0-9) Lymphocytes % 6 % (24-48) Monocytes % 1 % (0-10) Eosinophils % 2 % (0-5) Platelet Estimate Decreased (ADEQUATE) Platelet Clumps, EDTA Present Large Platelets Giant Platelets Sodium Level 141 mmol/L (136-145) Potassium Level 4.0 mmol/L (3.5-5.1) Chloride Level 105 mmol/L (98-107) Carbon Dioxide Level 20 mmol/L (21-32) Anion Gap 16 (6-14) Blood Urea Nitrogen 52 mg/dL (7-20) Creatinine 1.2 mg/dL (0.6-1.0) Estimated GFR (Cockcroft-Gault) 45.2 BUN/Creatinine Ratio 43 (6-20) Glucose Level 255 mg/dL (70-99) Calcium Level 8.5 mg/dL (8.5-10.1) Total Bilirubin 1.2 mg/dL (0.2-1.0) Aspartate Amino Transf (AST/SGOT) 117 U/L (15-37) Alanine Aminotransferase (ALT/SGPT) 54 U/L (14-59) Alkaline Phosphatase 155 U/L (46-116) Total Protein 5.9 g/dL (6.4-8.2) Albumin 2.2 g/dL (3.4-5.0) Albumin/Globulin Ratio 0.6 (1.0-1.7) Micro 04/19. BLD CULT RESULT 1 Preliminary Staphylococcus species 04/21. BLOOD CULTURE Preliminary NO GROWTH AFTER 1 DAY 04/19. URINE CULTURE RES 1 Final No growth Objective Assessment Sepsis with fever - better. Procalcitonin >25. Levophed tapering off Leukocytosis - better Bacteremia w/ staph spp. from 04/19. ID pending Pneumonia Lactic acidosis. This may have been ischemic colon, but also sepsis is possible. Urinary tract infection versus hematuria. UC no growth Respiratory failure Poor personal hygiene. Sacral decubitus. Status post fall. Abdominal pain. Large pelvic mass Transaminitis Plan Plan of Care Continue Zosyn Dapto times one, 04/22 and redose today Last dose vanc, 04/21. Trough 26.2 Tapering Levophed F/u cultures Supportive care Overall prognosis poor Consider palliative care for goal Attending Co-Sign Attending Co-Sign The patient was seen and interviewed as well as examined at the bedside. The chart was reviewed. The case was discussed. Agree with the plan of care. MONTANA BHAT APRN Apr 23, 2019 09:00 ADRIANA ESTRADA MD Apr 23, 2019 12:31
--- NOTE | 2019-04-23 09:17 | PDOC ---
PROGRESS NOTES History of Present Illness History of Present Illness ASSESSMENT AND PLAN: Gastrointestinal bleed, incarcerated umbilical hernia failure to thrive, multiple hypokalemia, hyponatremia, azotemia, dehydration, new onset diabetes, extreme morbid obesity probable malnutrition sepsis Small umbilical hernia containing a short segment of small bowel which is causing small bowel obstruction. Dilated loops of small bowel are seen proximally and decompressed loops distally. Patchy airspace disease the lung bases favored represent pneumonia. 04/23 Increasing bilateral lower lobe left greater than right atelectasis and/or infiltrate. Septic Shock/ UO better on IVF and Pressors. Worsening bilateral infiltrates, likely aspiration pneumonia. Trace left pleural effusion. enlarged retroperitoneal lymph nodes, which are nonspecific however abnormal. Recommend correlation with history of malignancy. In the absence of known causes of lymphadenopathy tissue sampling would be recommended. Left adnexal mass measuring approximately 8.3 cm. Uncertain whether this is ovarian in etiology or representing a pedunculated fibroid. Initial Further evaluation with ultrasound is recommended when clinically appropriate. Cirrhotic morphology of the liver with secondary sequela of portal hypertension including splenomegaly and ascites. A component of the free fluid may be also reactive to the small bowel obstruction. Nonobstructing 3 mm calculus at the mid right kidney. CXR 04/21 New right internal jugular central line with tip in acceptable position Otherwise stable support lines and tubes 04/21 Bilateral interstitial and alveolar infiltrates hematuria Heterogeneous enlarged nodular liver, may indicate chronic liver disease although hepatitis is possible. Dilated gallbladder with gallbladder sludge and wall thickening, may relate to liver disease. If concern for acute cholecystitis HIDA scan can better evaluate gallbladder function. Small upper abdominal ascites. Splenomegaly. FEVER Thrombocytopenia, monitor Palliative care consult Hypotensive, on Levophed stasis dermatitis both legs severe protein-caloric malnutrition admitted. 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 ETT/ OGT NECK: Supple. Left EJ LUNGS: Clear. HEART: S1, S2 regular. ABDOMEN: Soft, Umbilical hernia present. Large pannus present. EXTREMITIES: Both lower extremities have venous insufficiency, stasis dermatitis on both the legs posteriorly. Trace edema SKIN: Warm to touch. sacral wound NEUROLOGIC: Sedated on vent RIJ clean General: Other (non responsive) Heart: Regular rate, Other (distant heart tones ) Lungs: Other (deminished) Abdomen: Soft, Other (morbidly obese, palpable supraumbilical hernia with well healed incision inferiorly, hernia partially reduced) Extremities: Other (extensive lymphedema) Skin: No significant lesion Labs LABS -------- ---- PATIENT: XENA LEE ACCT: [id number] LOC: 1 [facility] U: [id number] AGE/SX: 63/F ROOM: [facility] RE04/19/[address]: ASHLY SIEGEL MD : [id number] BED: 1 DIS: STATUS: ADM IN TLOC: SPEC #: [id number] WEST: 04/19/19 STATUS: RES REQ #: [id number] RECD: 04/19/19-[address] [facility] [address]: BENJIE DE LOS SANTOS MD SOURCE: BLOOD ENTR: 04/20/19-[address] [facility] [address]: GEOVANNA LUEVANO [facility]: ORDERED: BLD CULT - LC Procedure Result BLOOD CULTURE LC Preliminary Preliminary report BLD CULT RESULT 1 Preliminary Comment Staphylococcus species Performed at: - [facility] [address], [place], [place] [id number] Kindergarten Tutor: BHARGAVI Smart MD, Phone: [phone] AP portable chest radiograph 04/23/2019 Clinical History: Pneumonia. Respiratory failure. An AP semierect portable digital radiograph of the chest was obtained. Comparison study is dated 04/21/2019. The patient is rotated to the right. The ET tube, NG tube and right internal jugular central venous catheter are unchanged in position. The cardiac silhouette is mildly enlarged. The thoracic aorta is tortuous. Bilateral perihilar infiltrates are again seen essentially unchanged. Bilateral lower lobe atelectasis and/or infiltrate, left greater than right appear increased. There are probable small bilateral pleural effusions. No pneumothorax is seen. The osseous structures are unchanged. Impression: Increasing bilateral lower lobe left greater than right atelectasis and/or infiltrate. Electronically signed by: Rei Jerry MD (04/23/2019 8:24 AM) [facility] Laboratory Tests Test 04/22/19 10:00 04/22/19 12:52 04/22/19 23:22 04/23/19 06:15 White Blood Count 24.7 x10^3/uL (4.0-11.0) 19.0 x10^3/uL (4.0-11.0) Red Blood Count 5.36 x10^6/uL (3.50-5.40) 4.85 x10^6/uL (3.50-5.40) Hemoglobin 11.8 g/dL (12.0-15.5) 11.0 g/dL (12.0-15.5) Hematocrit 39.4 % (36.0-47.0) 34.9 % (36.0-47.0) Mean Corpuscular Volume 74 fL (79-100) 72 fL (79-100) Mean Corpuscular Hemoglobin 22 pg (25-35) 23 pg (25-35) Mean Corpuscular Hemoglobin Concent 30 g/dL (31-37) 32 g/dL (31-37) Red Cell Distribution Width 18.6 % (11.5-14.5) 18.6 % (11.5-14.5) Platelet Count 117 x10^3/uL (140-400) 82 x10^3/uL (140-400) Prothrombin Time 23.2 SEC (11.7-14.0) Prothromb Time International Ratio 2.1 (0.8-1.1) Activated Partial Thromboplast Time 33 SEC (24-38) Fibrinogen 548 mg/dL (200-440) D-Dimer (Padmini) 5.98 ug/mlFEU (0.00-0.50) Glucose (Fingerstick) 247 mg/dL (70-99) 256 mg/dL (70-99) 248 mg/dL (70-99) Neutrophils (%) (Auto) 88 % (31-73) Lymphocytes (%) (Auto) 7 % (24-48) Monocytes (%) (Auto) 4 % (0-9) Eosinophils (%) (Auto) 1 % (0-3) Basophils (%) (Auto) 0 % (0-3) Neutrophils # (Auto) 16.7 x10^3/uL (1.8-7.7) Lymphocytes # (Auto) 1.4 x10^3/uL (1.0-4.8) Monocytes # (Auto) 0.7 x10^3/uL (0.0-1.1) Eosinophils # (Auto) 0.1 x10^3/uL (0.0-0.7) Basophils # (Auto) 0.0 x10^3/uL (0.0-0.2) Segmented Neutrophils % 75 % (35-66) Band Neutrophils % 16 % (0-9) Lymphocytes % 6 % (24-48) Monocytes % 1 % (0-10) Eosinophils % 2 % (0-5) Platelet Estimate Decreased (ADEQUATE) Platelet Clumps, EDTA Present Large Platelets Giant Platelets Sodium Level 141 mmol/L (136-145) Potassium Level 4.0 mmol/L (3.5-5.1) Chloride Level 105 mmol/L (98-107) Carbon Dioxide Level 20 mmol/L (21-32) Anion Gap 16 (6-14) Blood Urea Nitrogen 52 mg/dL (7-20) Creatinine 1.2 mg/dL (0.6-1.0) Estimated GFR (Cockcroft-Gault) 45.2 BUN/Creatinine Ratio 43 (6-20) Glucose Level 255 mg/dL (70-99) Calcium Level 8.5 mg/dL (8.5-10.1) Total Bilirubin 1.2 mg/dL (0.2-1.0) Aspartate Amino Transf (AST/SGOT) 117 U/L (15-37) Alanine Aminotransferase (ALT/SGPT) 54 U/L (14-59) Alkaline Phosphatase 155 U/L (46-116) Total Protein 5.9 g/dL (6.4-8.2) Albumin 2.2 g/dL (3.4-5.0) Albumin/Globulin Ratio 0.6 (1.0-1.7) Assessment and Plan Assessmemt and Plan Problems Medical Problems: (1) Diabetes Status: Acute (2) Fall Status: Acute (3) Severe sepsis Status: Acute (4) UTI (urinary tract infection) Status: Acute (5) Weakness Status: Acute Comment Review of Relevant I have reviewed the following items ashok (where applicable) has been applied. Labs Laboratory Tests Test 04/21/19 11:35 04/21/19 12:15 04/21/19 15:30 04/21/19 17:45 Glucose (Fingerstick) 199 mg/dL (70-99) Hepatitis A IgM Antibody Nonreactive (Nonreactive) Hepatitis B Surface Antigen Nonreactive (Nonreactive) Hepatitis B Core IgM Antibody Nonreactive (Nonreactive) Hepatitis C IgG Antibody Nonreactive (Nonreactive) Urine Opiates Screen Neg (NEG) Urine Methadone Screen Neg (NEG) Urine Barbiturates Neg (NEG) Urine Phencyclidine Screen Neg (NEG) Urine Amphetamine/Methamphetamine Neg (NEG) Urine Benzodiazepines Screen Pos (NEG) Urine Cocaine Screen Neg (NEG) Urine Cannabinoids Screen Neg (NEG) Urine Ethyl Alcohol Neg (NEG) Lactic Acid Level 2.9 mmol/L (0.4-2.0) Test 04/21/19 18:05 04/21/19 23:28 04/22/19 05:33 04/22/19 05:34 Glucose (Fingerstick) 196 mg/dL (70-99) 223 mg/dL (70-99) 232 mg/dL (70-99) White Blood Count 22.2 x10^3/uL (4.0-11.0) Red Blood Count 4.95 x10^6/uL (3.50-5.40) Hemoglobin 11.0 g/dL (12.0-15.5) Hematocrit 36.0 % (36.0-47.0) Mean Corpuscular Volume 73 fL (79-100) Mean Corpuscular Hemoglobin 22 pg (25-35) Mean Corpuscular Hemoglobin Concent 31 g/dL (31-37) Red Cell Distribution Width 18.6 % (11.5-14.5) Platelet Count 137 x10^3/uL (140-400) Neutrophils (%) (Auto) 87 % (31-73) Lymphocytes (%) (Auto) 10 % (24-48) Monocytes (%) (Auto) 3 % (0-9) Eosinophils (%) (Auto) 0 % (0-3) Basophils (%) (Auto) 0 % (0-3) Neutrophils # (Auto) 19.3 x10^3/uL (1.8-7.7) Lymphocytes # (Auto) 2.1 x10^3/uL (1.0-4.8) Monocytes # (Auto) 0.7 x10^3/uL (0.0-1.1) Eosinophils # (Auto) 0.0 x10^3/uL (0.0-0.7) Basophils # (Auto) 0.1 x10^3/uL (0.0-0.2) Sodium Level 138 mmol/L (136-145) Potassium Level 3.9 mmol/L (3.5-5.1) Chloride Level 104 mmol/L (98-107) Carbon Dioxide Level 16 mmol/L (21-32) Anion Gap 18 (6-14) Blood Urea Nitrogen 47 mg/dL (7-20) Creatinine 1.5 mg/dL (0.6-1.0) Estimated GFR (Cockcroft-Gault) 35.0 BUN/Creatinine Ratio 31 (6-20) Glucose Level 257 mg/dL (70-99) Calcium Level 7.8 mg/dL (8.5-10.1) Total Bilirubin 1.3 mg/dL (0.2-1.0) Aspartate Amino Transf (AST/SGOT) 207 U/L (15-37) Alanine Aminotransferase (ALT/SGPT) 62 U/L (14-59) Alkaline Phosphatase 211 U/L (46-116) Total Protein 5.8 g/dL (6.4-8.2) Albumin 1.8 g/dL (3.4-5.0) Albumin/Globulin Ratio 0.5 (1.0-1.7) Test 04/22/19 08:40 04/22/19 08:50 04/22/19 10:00 04/22/19 12:52 O2 Saturation 98 % (92-99) Arterial Blood pH 7.24 (7.35-7.45) Arterial Blood pCO2 at Patient Temp 40 mmHg (35-46) Arterial Blood pO2 at Patient Temp 115 mmHg (65-108) Arterial Blood HCO3 17 mmol/L (21-28) Arterial Blood Base Excess -10 mmol/L (-3-3) FiO2 60 Glucose (Fingerstick) 242 mg/dL (70-99) 247 mg/dL (70-99) White Blood Count 24.7 x10^3/uL (4.0-11.0) Red Blood Count 5.36 x10^6/uL (3.50-5.40) Hemoglobin 11.8 g/dL (12.0-15.5) Hematocrit 39.4 % (36.0-47.0) Mean Corpuscular Volume 74 fL (79-100) Mean Corpuscular Hemoglobin 22 pg (25-35) Mean Corpuscular Hemoglobin Concent 30 g/dL (31-37) Red Cell Distribution Width 18.6 % (11.5-14.5) Platelet Count 117 x10^3/uL (140-400) Prothrombin Time 23.2 SEC (11.7-14.0) Prothromb Time International Ratio 2.1 (0.8-1.1) Activated Partial Thromboplast Time 33 SEC (24-38) Fibrinogen 548 mg/dL (200-440) D-Dimer (Padmini) 5.98 ug/mlFEU (0.00-0.50) Test 04/22/19 23:22 04/23/19 06:15 Glucose (Fingerstick) 256 mg/dL (70-99) 248 mg/dL (70-99) White Blood Count 19.0 x10^3/uL (4.0-11.0) Red Blood Count 4.85 x10^6/uL (3.50-5.40) Hemoglobin 11.0 g/dL (12.0-15.5) Hematocrit 34.9 % (36.0-47.0) Mean Corpuscular Volume 72 fL (79-100) Mean Corpuscular Hemoglobin 23 pg (25-35) Mean Corpuscular Hemoglobin Concent 32 g/dL (31-37) Red Cell Distribution Width 18.6 % (11.5-14.5) Platelet Count 82 x10^3/uL (140-400) Neutrophils (%) (Auto) 88 % (31-73) Lymphocytes (%) (Auto) 7 % (24-48) Monocytes (%) (Auto) 4 % (0-9) Eosinophils (%) (Auto) 1 % (0-3) Basophils (%) (Auto) 0 % (0-3) Neutrophils # (Auto) 16.7 x10^3/uL (1.8-7.7) Lymphocytes # (Auto) 1.4 x10^3/uL (1.0-4.8) Monocytes # (Auto) 0.7 x10^3/uL (0.0-1.1) Eosinophils # (Auto) 0.1 x10^3/uL (0.0-0.7) Basophils # (Auto) 0.0 x10^3/uL (0.0-0.2) Segmented Neutrophils % 75 % (35-66) Band Neutrophils % 16 % (0-9) Lymphocytes % 6 % (24-48) Monocytes % 1 % (0-10) Eosinophils % 2 % (0-5) Platelet Estimate Decreased (ADEQUATE) Platelet Clumps, EDTA Present Large Platelets Giant Platelets Sodium Level 141 mmol/L (136-145) Potassium Level 4.0 mmol/L (3.5-5.1) Chloride Level 105 mmol/L (98-107) Carbon Dioxide Level 20 mmol/L (21-32) Anion Gap 16 (6-14) Blood Urea Nitrogen 52 mg/dL (7-20) Creatinine 1.2 mg/dL (0.6-1.0) Estimated GFR (Cockcroft-Gault) 45.2 BUN/Creatinine Ratio 43 (6-20) Glucose Level 255 mg/dL (70-99) Calcium Level 8.5 mg/dL (8.5-10.1) Total Bilirubin 1.2 mg/dL (0.2-1.0) Aspartate Amino Transf (AST/SGOT) 117 U/L (15-37) Alanine Aminotransferase (ALT/SGPT) 54 U/L (14-59) Alkaline Phosphatase 155 U/L (46-116) Total Protein 5.9 g/dL (6.4-8.2) Albumin 2.2 g/dL (3.4-5.0) Albumin/Globulin Ratio 0.6 (1.0-1.7) Laboratory Tests Test 04/22/19 10:00 04/22/19 12:52 04/22/19 23:22 04/23/19 06:15 White Blood Count 24.7 x10^3/uL (4.0-11.0) 19.0 x10^3/uL (4.0-11.0) Red Blood Count 5.36 x10^6/uL (3.50-5.40) 4.85 x10^6/uL (3.50-5.40) Hemoglobin 11.8 g/dL (12.0-15.5) 11.0 g/dL (12.0-15.5) Hematocrit 39.4 % (36.0-47.0) 34.9 % (36.0-47.0) Mean Corpuscular Volume 74 fL (79-100) 72 fL (79-100) Mean Corpuscular Hemoglobin 22 pg (25-35) 23 pg (25-35) Mean Corpuscular Hemoglobin Concent 30 g/dL (31-37) 32 g/dL (31-37) Red Cell Distribution Width 18.6 % (11.5-14.5) 18.6 % (11.5-14.5) Platelet Count 117 x10^3/uL (140-400) 82 x10^3/uL (140-400) Prothrombin Time 23.2 SEC (11.7-14.0) Prothromb Time International Ratio 2.1 (0.8-1.1) Activated Partial Thromboplast Time 33 SEC (24-38) Fibrinogen 548 mg/dL (200-440) D-Dimer (Padmini) 5.98 ug/mlFEU (0.00-0.50) Glucose (Fingerstick) 247 mg/dL (70-99) 256 mg/dL (70-99) 248 mg/dL (70-99) Neutrophils (%) (Auto) 88 % (31-73) Lymphocytes (%) (Auto) 7 % (24-48) Monocytes (%) (Auto) 4 % (0-9) Eosinophils (%) (Auto) 1 % (0-3) Basophils (%) (Auto) 0 % (0-3) Neutrophils # (Auto) 16.7 x10^3/uL (1.8-7.7) Lymphocytes # (Auto) 1.4 x10^3/uL (1.0-4.8) Monocytes # (Auto) 0.7 x10^3/uL (0.0-1.1) Eosinophils # (Auto) 0.1 x10^3/uL (0.0-0.7) Basophils # (Auto) 0.0 x10^3/uL (0.0-0.2) Segmented Neutrophils % 75 % (35-66) Band Neutrophils % 16 % (0-9) Lymphocytes % 6 % (24-48) Monocytes % 1 % (0-10) Eosinophils % 2 % (0-5) Platelet Estimate Decreased (ADEQUATE) Platelet Clumps, EDTA Present Large Platelets Giant Platelets Sodium Level 141 mmol/L (136-145) Potassium Level 4.0 mmol/L (3.5-5.1) Chloride Level 105 mmol/L (98-107) Carbon Dioxide Level 20 mmol/L (21-32) Anion Gap 16 (6-14) Blood Urea Nitrogen 52 mg/dL (7-20) Creatinine 1.2 mg/dL (0.6-1.0) Estimated GFR (Cockcroft-Gault) 45.2 BUN/Creatinine Ratio 43 (6-20) Glucose Level 255 mg/dL (70-99) Calcium Level 8.5 mg/dL (8.5-10.1) Total Bilirubin 1.2 mg/dL (0.2-1.0) Aspartate Amino Transf (AST/SGOT) 117 U/L (15-37) Alanine Aminotransferase (ALT/SGPT) 54 U/L (14-59) Alkaline Phosphatase 155 U/L (46-116) Total Protein 5.9 g/dL (6.4-8.2) Albumin 2.2 g/dL (3.4-5.0) Albumin/Globulin Ratio 0.6 (1.0-1.7) Microbiology 04/21/19 Blood Culture - Preliminary, Resulted NO GROWTH AFTER 1 DAY 04/19/19 Urine Culture - Final, Complete 04/19/19 Urine Culture Result 1 (YODIT) - Final, Complete Medications Current Medications Sodium Chloride 1,000 ml @ 0 mls/hr 1X ONCE IV Last administered on 04/19/19at 20:10; Start 04/19/19 at 18:45; Stop 04/19/19 at 18:46; Status DC Ceftriaxone Sodium (Rocephin) 1 gm 1X ONCE IVP Last administered on 04/19/19at 19:17; Start 04/19/19 at 18:45; Stop 04/19/19 at 18:46; Status DC Sodium Chloride 1,560 ml @ 1,560 mls/hr Q1H IV ; Start 04/19/19 at 19:03; Status Cancel Vancomycin HCl (Vanco Per Pharmacy) 1 each PRN DAILY PRN MC SEE COMMENTS Last administered on 04/20/19at 14:29; Start 04/19/19 at 19:15; Stop 04/21/19 at 09:40; Status DC Vancomycin HCl 2 gm/Sodium Chloride 500 ml @ 250 mls/hr 1X ONCE IV Last administered on 04/19/19at 20:01; Start 04/19/19 at 19:15; Stop 04/19/19 at 21:14; Status DC Sodium Chloride 1,000 ml @ 1,560 mls/hr Q39M IV Last administered on 04/19/19at 19:17; Start 04/19/19 at 19:15; Stop 04/19/19 at 20:03; Status DC Ondansetron HCl (Zofran) 4 mg PRN Q8HRS PRN IV NAUSEA/VOMITING Last administered on 04/20/19at 09:36; Start 04/19/19 at 19:30; Stop 04/20/19 at 10:00; Status DC Acetaminophen (Tylenol) 650 mg PRN Q4HRS PRN PO FEVER; Start 04/19/19 at 19:30; Stop 04/20/19 at 19:29; Status DC Insulin Human Lispro (HumaLOG) 0-7 UNITS TIDWMEALS SQ Last administered on 04/20/19at 19:52; Start 04/20/19 at 08:00; Stop 04/21/19 at 07:48; Status DC Dextrose (Dextrose 50%-Water Syringe) 12.5 gm PRN Q15MIN PRN IV SEE COMMENTS; Start 04/19/19 at 19:30 Dextrose 250 ml PRN Q15MIN PRN IV SEE COMMENTS; Start 04/19/19 at 19:30 Vancomycin HCl 1.5 gm/Sodium Chloride 500 ml @ 250 mls/hr Q12H IV Last administered on 04/20/19at 20:04; Start 04/20/19 at 08:00; Stop 04/21/19 at 09:40; Status DC Vancomycin HCl (Vancomycin Trough Level) 1 each 1X ONCE MC Last administered on 04/21/19at 10:49; Start 04/21/19 at 07:30; Stop 04/21/19 at 07:31; Status DC Sodium Chloride 1,000 ml @ 80 mls/hr [id number] IV Last administered on 04/20/19at 02:46; Start 04/20/19 at 02:30; Stop 04/20/19 at 11:23; Status DC Insulin Human Lispro (HumaLOG) 4 units 1X ONCE SQ Last administered on 04/20/19at 04:04; Start 04/20/19 at 03:15; Stop 04/20/19 at 03:16; Status DC Ondansetron HCl (Zofran) 4 mg PRN Q6HRS PRN IV NAUSEA/VOMITING Last administered on 04/20/19at 16:04; Start 04/20/19 at 10:00 Sodium Chloride 500 ml @ 500 mls/hr 1X ONCE IV Last administered on 04/20/19at 11:30; Start 04/20/19 at 11:15; Stop 04/20/19 at 12:14; Status DC Potassium Chloride (Klor-Con) 40 meq 1X ONCE PO ; Start 04/20/19 at 11:30; Stop 04/20/19 at 11:31; Status Cancel Sodium Chloride 1,000 ml @ 150 mls/hr Q6H40M IV Last administered on 04/21/19at 23:04; Start 04/20/19 at 11:30; Stop 04/22/19 at 11:58; Status DC Pantoprazole Sodium (PROTONIX VIAL for IV PUSH) 40 mg DAILYAC IVP Last administered on 04/23/19at 07:45; Start 04/20/19 at 12:30 Potassium Chloride/Water 100 ml @ 100 mls/hr Q1H IV Last administered on 04/21/19at 07:22; Start 04/20/19 at 12:00; Stop 04/20/19 at 15:59; Status DC Metoprolol Tartrate (Lopressor) 25 mg BID PO ; Start 04/20/19 at 14:00; Stop 04/20/19 at 13:34; Status DC Metoprolol Tartrate (Lopressor Vial) 2.5 mg Q6HRS IVP Last administered on 04/20/19at 14:28; Start 04/20/19 at 14:30 Piperacillin Sod/ Tazobactam Sod 3.375 gm/Sodium Chloride 50 ml @ 100 mls/hr Q6HRS IV Last administered on 04/23/19at 06:20; Start 04/20/19 at 18:00 Sodium Chloride 1,000 ml @ 0 mls/hr 1X ONCE IV ; Start 04/20/19 at 15:45; Stop 04/20/19 at 15:49; Status DC Lactic Acid (Lac-Hydrin) 1 gauri BID TP Last administered on 04/23/19at 08:59; Start 04/20/19 at 21:00 Lorazepam (Ativan Inj) 1 mg PRN Q4HRS PRN IV ANXIETY / AGITATION; Start 04/20/19 at 16:15 Lorazepam (Ativan Inj) 1 mg PRN 1X ONCE IV ; Start 04/20/19 at 16:15; Stop 04/20/19 at 16:16; Status DC Propofol 100 ml @ As Directed STK-MED ONCE IV ; Start 04/20/19 at 16:42; Stop 04/20/19 at 16:42; Status DC Norepinephrine Bitartrate 250 ml @ 21 mls/hr CONT PRN IV SEE I/O RECORD Last administered on 04/23/19at 06:20; Start 04/20/19 at 17:15 Midazolam HCl (Versed) 5 mg STK-MED ONCE .ROUTE ; Start 04/20/19 at 17:04; Stop 04/20/19 at 17:05; Status DC Propofol 20 ml @ 0 mls/hr 1X ONCE IV Last administered on 04/20/19at 17:38; Start 04/20/19 at 17:15; Stop 04/20/19 at 17:16; Status DC Succinylcholine Chloride (Anectine) 80 mg 1X ONCE IV Last administered on 04/20/19at 17:36; Start 04/20/19 at 17:30; Stop 04/20/19 at 17:31; Status DC Midazolam HCl (Versed) 5 mg 1X ONCE IV Last administered on 04/20/19at 17:38; Start 04/20/19 at 17:15; Stop 04/20/19 at 17:19; Status DC Midazolam HCl 100 ml @ 5 mls/hr CONT PRN IV SEE I/O RECORD Last administered on 04/23/19at 02:03; Start 04/20/19 at 17:15 Propofol 100 ml @ 1.69 mls/hr CONT PRN IV SEE I/O RECORD Last administered on 04/20/19at 17:36; Start 04/20/19 at 17:15 Fentanyl Citrate 30 ml @ 0 mls/hr CONT PRN PRN IV PER PROTOCOL Last administered on 9/8/19at 03:18; Start 04/20/19 at 17:15 Naloxone HCl (Narcan) 0.4 mg PRN Q2MIN PRN IV SEE INSTRUCTIONS; Start 04/20/19 at 17:15 Sodium Chloride 1,000 ml @ 25 mls/hr Q24H IV Last administered on 04/21/19at 10:53; Start 04/20/19 at 17:12 Norepinephrine Bitartrate 250 ml @ 21.129 mls/ hr CONT PRN IV SEE I/O RECORD; Start 04/20/19 at 17:30; Status UNV Sodium Chloride 500 ml @ 500 mls/hr PRN Q1HR PRN IV LOW UO Last administered on 04/20/19at 19:52; Start 04/20/19 at 19:45; Stop 04/22/19 at 11:58; Status DC Dexmedetomidine HCl 400 mcg/ Sodium Chloride 100 ml @ 0 mls/hr CONT PRN IV SEDATION Last administered on 04/23/19at 08:39; Start 04/20/19 at 23:30 Sodium Chloride 500 ml @ 500 mls/hr 1X PRN PRN IV PER PROTOCOL; Start 04/20/19 at 23:30 Atropine Sulfate (ATROPINE 0.5mg SYRINGE) 0.5 mg PRN Q5MIN PRN IV SEE COMMENTS; Start 04/20/19 at 23:30 Albumin Human 100 ml @ 100 mls/hr 1X ONCE IV Last administered on 04/21/19at 01:34; Start 04/21/19 at 01:30; Stop 04/21/19 at 02:29; Status DC Sodium Chloride 1,000 ml @ 1,000 mls/hr 1X ONCE IV Last administered on 04/21/19at 05:39; Start 04/21/19 at 02:45; Stop 04/21/19 at 03:44; Status DC Albumin Human 500 ml @ 250 mls/hr Q2HR IV Last administered on 04/21/19at 06:28; Start 04/21/19 at 04:00; Stop 04/21/19 at 07:00; Status DC Vasopressin 40 unit/Dextrose 102 ml @ 6 mls/hr CONT PRN IV SEE I/O RECORD Last administered on 04/23/19at 02:03; Start 04/21/19 at 04:00 Epinephrine HCl 4 mg/Sodium Chloride 254 ml @ 42.935 mls/ hr CONT PRN IV SEE I/O RECORD; Start 04/21/19 at 05:00 Insulin Human Lispro (HumaLOG) 0-7 UNITS Q6HRS SQ Last administered on 04/23/19at 06:20; Start 04/21/19 at 12:00 Rocuronium [place] (Zemuron) 50 mg STK-MED ONCE .ROUTE ; Start 04/20/19 at 18:00; Stop 04/21/19 at 09:09; Status DC Sodium Chloride 1,000 ml @ 1,000 mls/hr 1X ONCE IV Last administered on 04/21/19at 10:53; Start 04/21/19 at 10:30; Stop 04/21/19 at 11:29; Status DC Lidocaine HCl (Xylocaine 2% Topical 5gm Tube) 5 gauri STK-MED ONCE TP ; Start 04/19/19 at 12:00; Stop 04/21/19 at 10:21; Status DC Acetaminophen (Tylenol Supp) 650 mg PRN Q6HRS PRN FL MILD PAIN / TEMP Last administered on 04/22/19at 00:39; Start 04/21/19 at 16:45 Enoxaparin Sodium (Lovenox 60mg Syringe) 60 mg Q12HR SQ Last administered on 04/21/19at 20:45; Start 04/21/19 at 21:00; Stop 04/22/19 at 15:40; Status DC Acetaminophen (Tylenol) 650 mg PRN Q6HRS PRN PEG MILD PAIN / TEMP; Start 04/22/19 at 00:15; Status Cancel Sodium Chloride 500 ml @ 0 mls/hr QID PRN IV UO< 30cc/hr over previous 6hrs; Start 04/22/19 at 12:00 Albumin Human 100 ml @ 100 mls/hr TID IV Last administered on 04/23/19at 08:39; Start 04/22/19 at 14:00; Stop 04/24/19 at 09:59 Daptomycin 720 mg/ Sodium Chloride 50 ml @ 100 mls/hr ONCE ONCE IV Last administered on 04/22/19at 15:06; Start 04/22/19 at 16:00; Stop 04/22/19 at 16:29; Status DC Active Scripts Active Reported No Known Medications Prior To Admisstion (Info) Each 1 Each MC 1X Vitals/I & O Vital Sign - Last 24 Hours 04/22/19 04/22/19 04/22/19 04/22/19 09:23 10:09 10:56 11:31 Temp 99.2 98.7 99.2 98.7 Pulse 94 95 Resp 14 14 B/P (MAP) 113/66 (82) 111/62 (78) Pulse Ox 98 98 96 99 O2 Delivery Ventilator Ventilator Ventilator Ventilator 04/22/19 04/22/19 04/22/19 04/22/19 12:06 12:07 13:00 13:06 Temp 98.7 98.7 98.7 98.7 Pulse 95 95 Resp 20 B/P (MAP) 120/66 (84) 120/66 (84) Pulse Ox 99 99 99 O2 Delivery Ventilator Mechanical Ventilator Ventilator Ventilator O2 Flow Rate 98.0 98.0 04/22/19 04/22/19 04/22/19 04/22/19 14:04 14:32 15:31 16:00 Temp 98.7 98.7 98.7 98.7 98.7 98.7 Pulse 81 90 90 Resp 20 16 20 B/P (MAP) 137/79 (98) 146/66 (92) 126/73 (90) Pulse Ox 99 99 97 97 O2 Delivery Ventilator Ventilator Ventilator Ventilator 04/22/19 04/22/19 04/22/19 04/22/19 16:00 16:17 17:24 17:37 Temp 98.7 98.7 Pulse 90 Resp 20 B/P (MAP) 137/75 (95) Pulse Ox 97 97 97 O2 Delivery Mechanical Ventilator Ventilator Ventilator O2 Flow Rate 98.0 98.0 04/22/19 04/22/19 04/22/19 04/22/19 18:00 19:00 20:00 20:00 Temp 98.7 97.0 98.7 97.0 Pulse 90 92 74 Resp 22 23 B/P (MAP) 133/72 (92) 125/66 (85) 118/65 (82) Pulse Ox 97 96 98 O2 Delivery Ventilator Ventilator Ventilator Mechanical Ventilator 04/22/19 04/22/19 04/22/19 04/22/19 21:00 22:00 22:30 23:00 Pulse 73 97 95 Resp 20 20 20 B/P (MAP) 125/66 (85) 104/63 (77) 117/65 (82) Pulse Ox 96 98 98 98 O2 Delivery Ventilator Ventilator Ventilator Ventilator 04/22/19 04/23/19 04/23/19 04/23/19 23:38 00:00 00:06 01:00 Temp 97.6 97.6 Pulse 98 98 Resp 20 20 B/P (MAP) 123/70 (87) 127/64 (85) Pulse Ox 99 99 98 O2 Delivery Mechanical Ventilator Ventilator Ventilator Ventilator 04/23/19 04/23/19 04/23/19 04/23/19 02:00 03:00 03:38 04:00 Pulse 99 80 Resp 20 20 B/P (MAP) 125/72 (89) 95/59 (71) Pulse Ox 99 99 100 O2 Delivery Ventilator Ventilator Ventilator Mechanical Ventilator 04/23/19 04/23/19 04/23/19 04/23/19 04:00 05:00 06:00 07:00 Temp 98.0 98.0 Pulse 82 97 98 94 Resp 20 24 20 19 B/P (MAP) 128/57 (80) 119/62 (81) 128/67 (87) 133/73 (93) Pulse Ox 99 99 99 97 O2 Delivery Ventilator Ventilator Ventilator Ventilator 04/23/19 04/23/19 08:00 08:00 Temp 98.2 98.2 Pulse 97 Resp 20 B/P (MAP) 102/60 (74) Pulse Ox 100 O2 Delivery Ventilator Mechanical Ventilator Intake and Output 04/22/19 04/22/19 04/23/19 15:00 23:00 07:00 Intake Total 150 ml 1070 ml Output Total 300 ml 630 ml 530 ml Balance -300 ml -480 ml 540 ml ASHLY SIEGEL MD Apr 23, 2019 09:17
[2019-04-23 09:37] LABS: BASE EXCESS ABG -9 mmol/L (-3-3); HCO3 ABG 16 mmol/L (21-28); PCO2 ABG 31 mmHg (35-46); PO2 ABG 112 mmHg (65-108); SAT O2 ABG 98 % (92-99)
[2019-04-23] MEDS ORDERED: DAPTOmycin (GENERIC) IVPB 760 MG in IV NORMAL SALINE 50ML 50 ML IV ONE (13:00)
--- NOTE | 2019-04-23 13:35 | PDOC ---
SURGICAL PROGRESS NOTE Subjective Pt intubated, minimally responsive, some improvement in clinical parameters Vital Signs Vital Signs Date Time Temp Pulse Resp B/P (MAP) Pulse Ox O2 Delivery O2 Flow Rate FiO2 04/23/19 13:01 100 Ventilator 04/23/19 13:00 95 20 120/66 (84) 04/23/19 12:20 97.9 97.9 04/23/19 09:00 98.0 I&O Intake and Output 04/23/19 06:59 Intake Total 1220 ml Output Total 1385 ml Balance -165 ml IV Total 1220 ml Output Urine Total 1385 ml Abdomen: Soft, No tenderness, Other (umb hernia, some reduction, but remains out) Labs Laboratory Tests Test 04/21/19 15:30 04/21/19 17:45 04/21/19 18:05 04/21/19 23:28 Urine Opiates Screen Neg (NEG) Urine Methadone Screen Neg (NEG) Urine Barbiturates Neg (NEG) Urine Phencyclidine Screen Neg (NEG) Urine Amphetamine/Methamphetamine Neg (NEG) Urine Benzodiazepines Screen Pos (NEG) Urine Cocaine Screen Neg (NEG) Urine Cannabinoids Screen Neg (NEG) Urine Ethyl Alcohol Neg (NEG) Lactic Acid Level 2.9 mmol/L (0.4-2.0) Glucose (Fingerstick) 196 mg/dL (70-99) 223 mg/dL (70-99) Test 04/22/19 05:33 04/22/19 05:34 04/22/19 08:40 04/22/19 08:50 Glucose (Fingerstick) 232 mg/dL (70-99) 242 mg/dL (70-99) White Blood Count 22.2 x10^3/uL (4.0-11.0) Red Blood Count 4.95 x10^6/uL (3.50-5.40) Hemoglobin 11.0 g/dL (12.0-15.5) Hematocrit 36.0 % (36.0-47.0) Mean Corpuscular Volume 73 fL (79-100) Mean Corpuscular Hemoglobin 22 pg (25-35) Mean Corpuscular Hemoglobin Concent 31 g/dL (31-37) Red Cell Distribution Width 18.6 % (11.5-14.5) Platelet Count 137 x10^3/uL (140-400) Neutrophils (%) (Auto) 87 % (31-73) Lymphocytes (%) (Auto) 10 % (24-48) Monocytes (%) (Auto) 3 % (0-9) Eosinophils (%) (Auto) 0 % (0-3) Basophils (%) (Auto) 0 % (0-3) Neutrophils # (Auto) 19.3 x10^3/uL (1.8-7.7) Lymphocytes # (Auto) 2.1 x10^3/uL (1.0-4.8) Monocytes # (Auto) 0.7 x10^3/uL (0.0-1.1) Eosinophils # (Auto) 0.0 x10^3/uL (0.0-0.7) Basophils # (Auto) 0.1 x10^3/uL (0.0-0.2) Sodium Level 138 mmol/L (136-145) Potassium Level 3.9 mmol/L (3.5-5.1) Chloride Level 104 mmol/L (98-107) Carbon Dioxide Level 16 mmol/L (21-32) Anion Gap 18 (6-14) Blood Urea Nitrogen 47 mg/dL (7-20) Creatinine 1.5 mg/dL (0.6-1.0) Estimated GFR (Cockcroft-Gault) 35.0 BUN/Creatinine Ratio 31 (6-20) Glucose Level 257 mg/dL (70-99) Calcium Level 7.8 mg/dL (8.5-10.1) Total Bilirubin 1.3 mg/dL (0.2-1.0) Aspartate Amino Transf (AST/SGOT) 207 U/L (15-37) Alanine Aminotransferase (ALT/SGPT) 62 U/L (14-59) Alkaline Phosphatase 211 U/L (46-116) Total Protein 5.8 g/dL (6.4-8.2) Albumin 1.8 g/dL (3.4-5.0) Albumin/Globulin Ratio 0.5 (1.0-1.7) O2 Saturation 98 % (92-99) Arterial Blood pH 7.24 (7.35-7.45) Arterial Blood pCO2 at Patient Temp 40 mmHg (35-46) Arterial Blood pO2 at Patient Temp 115 mmHg (65-108) Arterial Blood HCO3 17 mmol/L (21-28) Arterial Blood Base Excess -10 mmol/L (-3-3) FiO2 60 Test 04/22/19 10:00 04/22/19 12:52 04/22/19 23:22 04/23/19 06:15 White Blood Count 24.7 x10^3/uL (4.0-11.0) 19.0 x10^3/uL (4.0-11.0) Red Blood Count 5.36 x10^6/uL (3.50-5.40) 4.85 x10^6/uL (3.50-5.40) Hemoglobin 11.8 g/dL (12.0-15.5) 11.0 g/dL (12.0-15.5) Hematocrit 39.4 % (36.0-47.0) 34.9 % (36.0-47.0) Mean Corpuscular Volume 74 fL (79-100) 72 fL (79-100) Mean Corpuscular Hemoglobin 22 pg (25-35) 23 pg (25-35) Mean Corpuscular Hemoglobin Concent 30 g/dL (31-37) 32 g/dL (31-37) Red Cell Distribution Width 18.6 % (11.5-14.5) 18.6 % (11.5-14.5) Platelet Count 117 x10^3/uL (140-400) 82 x10^3/uL (140-400) Prothrombin Time 23.2 SEC (11.7-14.0) Prothromb Time International Ratio 2.1 (0.8-1.1) Activated Partial Thromboplast Time 33 SEC (24-38) Fibrinogen 548 mg/dL (200-440) D-Dimer (Padmini) 5.98 ug/mlFEU (0.00-0.50) Glucose (Fingerstick) 247 mg/dL (70-99) 256 mg/dL (70-99) 248 mg/dL (70-99) Neutrophils (%) (Auto) 88 % (31-73) Lymphocytes (%) (Auto) 7 % (24-48) Monocytes (%) (Auto) 4 % (0-9) Eosinophils (%) (Auto) 1 % (0-3) Basophils (%) (Auto) 0 % (0-3) Neutrophils # (Auto) 16.7 x10^3/uL (1.8-7.7) Lymphocytes # (Auto) 1.4 x10^3/uL (1.0-4.8) Monocytes # (Auto) 0.7 x10^3/uL (0.0-1.1) Eosinophils # (Auto) 0.1 x10^3/uL (0.0-0.7) Basophils # (Auto) 0.0 x10^3/uL (0.0-0.2) Segmented Neutrophils % 75 % (35-66) Band Neutrophils % 16 % (0-9) Lymphocytes % 6 % (24-48) Monocytes % 1 % (0-10) Eosinophils % 2 % (0-5) Platelet Estimate Decreased (ADEQUATE) Platelet Clumps, EDTA Present Large Platelets Giant Platelets Sodium Level 141 mmol/L (136-145) Potassium Level 4.0 mmol/L (3.5-5.1) Chloride Level 105 mmol/L (98-107) Carbon Dioxide Level 20 mmol/L (21-32) Anion Gap 16 (6-14) Blood Urea Nitrogen 52 mg/dL (7-20) Creatinine 1.2 mg/dL (0.6-1.0) Estimated GFR (Cockcroft-Gault) 45.2 BUN/Creatinine Ratio 43 (6-20) Glucose Level 255 mg/dL (70-99) Calcium Level 8.5 mg/dL (8.5-10.1) Total Bilirubin 1.2 mg/dL (0.2-1.0) Aspartate Amino Transf (AST/SGOT) 117 U/L (15-37) Alanine Aminotransferase (ALT/SGPT) 54 U/L (14-59) Alkaline Phosphatase 155 U/L (46-116) Total Protein 5.9 g/dL (6.4-8.2) Albumin 2.2 g/dL (3.4-5.0) Albumin/Globulin Ratio 0.6 (1.0-1.7) Test 04/23/19 08:00 04/23/19 11:38 O2 Saturation 98 % (92-99) Arterial Blood pH 7.34 (7.35-7.45) Arterial Blood pCO2 at Patient Temp 31 mmHg (35-46) Arterial Blood pO2 at Patient Temp 112 mmHg (65-108) Arterial Blood HCO3 16 mmol/L (21-28) Arterial Blood Base Excess -9 mmol/L (-3-3) Glucose (Fingerstick) 230 mg/dL (70-99) Laboratory Tests Test 04/22/19 23:22 04/23/19 06:15 04/23/19 08:00 04/23/19 11:38 Glucose (Fingerstick) 256 mg/dL (70-99) 248 mg/dL (70-99) 230 mg/dL (70-99) White Blood Count 19.0 x10^3/uL (4.0-11.0) Red Blood Count 4.85 x10^6/uL (3.50-5.40) Hemoglobin 11.0 g/dL (12.0-15.5) Hematocrit 34.9 % (36.0-47.0) Mean Corpuscular Volume 72 fL (79-100) Mean Corpuscular Hemoglobin 23 pg (25-35) Mean Corpuscular Hemoglobin Concent 32 g/dL (31-37) Red Cell Distribution Width 18.6 % (11.5-14.5) Platelet Count 82 x10^3/uL (140-400) Neutrophils (%) (Auto) 88 % (31-73) Lymphocytes (%) (Auto) 7 % (24-48) Monocytes (%) (Auto) 4 % (0-9) Eosinophils (%) (Auto) 1 % (0-3) Basophils (%) (Auto) 0 % (0-3) Neutrophils # (Auto) 16.7 x10^3/uL (1.8-7.7) Lymphocytes # (Auto) 1.4 x10^3/uL (1.0-4.8) Monocytes # (Auto) 0.7 x10^3/uL (0.0-1.1) Eosinophils # (Auto) 0.1 x10^3/uL (0.0-0.7) Basophils # (Auto) 0.0 x10^3/uL (0.0-0.2) Segmented Neutrophils % 75 % (35-66) Band Neutrophils % 16 % (0-9) Lymphocytes % 6 % (24-48) Monocytes % 1 % (0-10) Eosinophils % 2 % (0-5) Platelet Estimate Decreased (ADEQUATE) Platelet Clumps, EDTA Present Large Platelets Giant Platelets Sodium Level 141 mmol/L (136-145) Potassium Level 4.0 mmol/L (3.5-5.1) Chloride Level 105 mmol/L (98-107) Carbon Dioxide Level 20 mmol/L (21-32) Anion Gap 16 (6-14) Blood Urea Nitrogen 52 mg/dL (7-20) Creatinine 1.2 mg/dL (0.6-1.0) Estimated GFR (Cockcroft-Gault) 45.2 BUN/Creatinine Ratio 43 (6-20) Glucose Level 255 mg/dL (70-99) Calcium Level 8.5 mg/dL (8.5-10.1) Total Bilirubin 1.2 mg/dL (0.2-1.0) Aspartate Amino Transf (AST/SGOT) 117 U/L (15-37) Alanine Aminotransferase (ALT/SGPT) 54 U/L (14-59) Alkaline Phosphatase 155 U/L (46-116) Total Protein 5.9 g/dL (6.4-8.2) Albumin 2.2 g/dL (3.4-5.0) Albumin/Globulin Ratio 0.6 (1.0-1.7) O2 Saturation 98 % (92-99) Arterial Blood pH 7.34 (7.35-7.45) Arterial Blood pCO2 at Patient Temp 31 mmHg (35-46) Arterial Blood pO2 at Patient Temp 112 mmHg (65-108) Arterial Blood HCO3 16 mmol/L (21-28) Arterial Blood Base Excess -9 mmol/L (-3-3) Problem List Problems Medical Problems: (1) Diabetes Status: Acute (2) Fall Status: Acute (3) Severe sepsis Status: Acute (4) UTI (urinary tract infection) Status: Acute (5) Weakness Status: Acute Assessment/Plan cont supportive care will continue to work with hernia pt is prohibitive surgical candidate NATE SHORT MD Apr 23, 2019 13:35
[2019-04-23] MEDS: AMINO AC 3%/ELECTROLYTE/GLYCER 1,000 ML IV SCH (15:28)
[2019-04-23] MEDS: ACETAMINOPHEN 650 MG SUPP.RECT. PR PRN (20:51)
[2019-04-24] VITALS (30 sets, daily range): BP systolic 89–153; BP diastolic 47–88
[2019-04-24] MEDS: METOPROLOL TARTRATE 5 MG/5 ML VIAL. IVP SCH ×4 (00:28→17:03)
[2019-04-24] MEDS: PIPERACILLIN/TAZOBACTAM 3.375 GM in IV NORMAL SALINE 50ML 50 ML IV SCH ×4 (00:28→15:37)
[2019-04-24] MEDS: INSULIN LISPRO 300 UNITS/3 ML VIAL. SQ SCH ×4 (00:33→17:08)
[2019-04-24] MEDS: IV NORMAL SALINE 500ML BAG 500 ML IV PRN (03:07)
[2019-04-24] MEDS: DEXMEDETOMIDINE 400 MCG in IV NORMAL SALINE 100ML 96 ML IV PRN ×2 (03:54→12:19)
[2019-04-24] MEDS: MIDAZOLAM 100mg/100ml NS BAG 100 ML IV PRN (03:54)
[2019-04-24] MEDS: IV NORMAL SALINE 1000ML BAG 1,000 ML IV SCH (04:25)
--- NOTE | 2019-04-24 05:28 | RAD ---
PORTABLE CHEST 1V INDICATION: Intubated. COMPARISON STUDY: 04/23/2019. FINDINGS: Rotation to the right. Life Support Devices: Stable life support devices. Lungs: Low lung volume. Stable multifocal bilateral heterogenous opacities. Stable pulmonary vasculature. Pleura: Stable small bilateral pleural effusions. Heart and Mediastinum: Stable cardiomediastinal silhouette and great vessels. IMPRESSION: 1. Stable multifocal bilateral airspace opacities. 2. Stable small bilateral pleural effusions. 3. Stable life support devices. Electronically signed by: Pipo Valle MD (04/24/2019 5:25 AM) [facility]
[2019-04-24] MEDS: AMINO AC 3%/ELECTROLYTE/GLYCER 1,000 ML IV SCH ×2 (06:09→15:37)
[2019-04-24 06:44] LABS: ALBUMIN 2.5 g/dL (3.4-5.0); ALBUMIN/GLOBULIN RATIO 0.7 (1.0-1.7); CALCIUM 8.5 mg/dL (8.5-10.1); GFR 55.8; POTASSIUM 4.1 mmol/L (3.5-5.1); TOTAL BILIRUBIN 1.3 mg/dL (0.2-1.0); TOTAL PROTEIN 5.9 g/dL (6.4-8.2)
[2019-04-24 06:50] LABS: BASO % 0 % (0-3); EOS % 0 % (0-3); HEMATOCRIT 31.6 % (36.0-47.0); HEMOGLOBIN 9.9 g/dL (12.0-15.5); LYMPH % 10 % (24-48); MEAN CORPUSCULAR HEMOGLOBIN 23 pg (25-35); MEAN CORPUSCULAR HGB CONC 32 g/dL (31-37); MEAN CORPUSCULAR VOLUME 72 fL (79-100); MONO # 0.4 x10^3/uL (0.0-1.1); MONO % 4 % (0-9); NEUT # 8.6 x10^3/uL (1.8-7.7); NEUT % 85 % (31-73); PLATELET COUNT 51 x10^3/uL (140-400); RED BLOOD COUNT 4.38 x10^6/uL (3.50-5.40); RED CELL DISTRIBUTION WIDTH 18.8 % (11.5-14.5)
[2019-04-24] MEDS: PANTOPRAZOLE IV PUSH 40 MG VIAL. IVP SCH (08:09)
[2019-04-24] MEDS: AMMONIUM LACTATE 12% TOPICAL LOTION 226GM BOTTLE. TP SCH ×2 (08:10→21:09)
[2019-04-24] MEDS: ALBUMIN HUMAN 25% 100 ML IV SCH (08:10)
--- NOTE | 2019-04-24 08:53 | PDOC ---
Infectious Disease Note Subjective: Subjective Remains orally intubated/vent Hypotensive, on Levophed No fevers last 24 hours ROS: ROS unable to obtain Vital Signs: Vital Signs Vital Signs Date Time Temp Pulse Resp B/P (MAP) Pulse Ox O2 Delivery O2 Flow Rate FiO2 04/24/19 07:32 20 100 04/24/19 06:00 76 110/61 (77) Ventilator 04/24/19 04:00 98.0 98.0 04/23/19 09:00 98.0 Physical Exam: PHYSICAL EXAM GENERAL: Orally intubated, sedated, mitts HEENT: Pupils equal, small. ETT/ OGT NECK: Supple. Left EJ LUNGS: Clear. HEART: S1, S2 regular. ABDOMEN: Soft, Umbilical hernia present. Large pannus present. EXTREMITIES: Both lower extremities have venous insufficiency, stasis dermatitis on both the legs posteriorly. Trace edema SKIN: Warm to touch. sacral wound NEUROLOGIC: Sedated on vent RIJ clean Medications: Inpatient Meds: Current Medications Medications (Trade) Dose Ordered Sig/[place] Start Time Stop Time Status Last Admin Dose Admin Acetaminophen (Tylenol Supp) 650 mg PRN Q6HRS PRN 04/21/19 16:45 04/23/19 20:56 650 MG Acetaminophen (Tylenol) 650 mg PRN Q6HRS PRN 04/22/19 00:15 Cancel Albumin Human 100 ml @ 100 mls/hr TID 04/22/19 14:00 04/24/19 09:59 04/24/19 08:10 100 MLS/HR Amino Acids/ Glycerin/ Electrolytes 1,000 ml @ 80 mls/hr [id number] 04/23/19 14:00 04/24/19 06:09 80 MLS/HR Atropine Sulfate (ATROPINE 0.5mg SYRINGE) 0.5 mg PRN Q5MIN PRN 04/20/19 23:30 Ceftriaxone Sodium (Rocephin) 1 gm 1X ONCE 04/19/19 18:45 04/19/19 18:46 DC 04/19/19 19:17 1 GM Daptomycin 720 mg/ Sodium Chloride 50 ml @ 100 mls/hr ONCE ONCE 04/22/19 16:00 04/22/19 16:29 DC 04/22/19 15:06 100 MLS/HR Daptomycin 760 mg/ Sodium Chloride 50 ml @ 100 mls/hr ONCE ONCE 04/23/19 13:00 04/23/19 13:29 DC 04/23/19 13:02 100 MLS/HR Dexmedetomidine HCl 400 mcg/ Sodium Chloride 100 ml @ 0 mls/hr CONT PRN 04/20/19 23:30 04/24/19 03:54 11.3 MLS/HR Dextrose 250 ml PRN Q15MIN PRN 04/19/19 19:30 Dextrose (Dextrose 50%-Water Syringe) 12.5 gm PRN Q15MIN PRN 04/19/19 19:30 Enoxaparin Sodium (Lovenox 60mg Syringe) 60 mg Q12HR 04/21/19 21:00 04/22/19 15:40 DC 04/21/19 20:45 60 MG Epinephrine HCl 4 mg/Sodium Chloride 254 ml @ 42.935 mls/ hr CONT PRN 04/21/19 05:00 Fentanyl Citrate 30 ml @ 0 mls/hr CONT PRN PRN 04/20/19 17:15 04/24/19 03:36 2.5 MLS/HR Insulin Human Lispro (HumaLOG) 0-7 UNITS Q6HRS 04/21/19 12:00 04/24/19 06:17 7 UNITS Lactic Acid (Lac-Hydrin) 1 gauri BID 04/20/19 21:00 04/24/19 08:10 1 GAURI Lidocaine HCl (Xylocaine 2% Topical 5gm Tube) 5 gauri STK-MED ONCE 04/19/19 12:00 04/21/19 10:21 DC Lorazepam (Ativan Inj) 1 mg PRN 1X ONCE 04/20/19 16:15 04/20/19 16:16 DC Metoprolol Tartrate (Lopressor Vial) 2.5 mg Q6HRS 04/20/19 14:30 04/20/19 14:28 2.5 MG Metoprolol Tartrate (Lopressor) 25 mg BID 04/20/19 14:00 04/20/19 13:34 DC Midazolam HCl 100 ml @ 5 mls/hr CONT PRN 04/20/19 17:15 04/24/19 03:54 5 MLS/HR Midazolam HCl (Versed) 5 mg 1X ONCE 04/20/19 17:15 04/20/19 17:19 DC 04/20/19 17:38 5 MG Naloxone HCl (Narcan) 0.4 mg PRN Q2MIN PRN 04/20/19 17:15 Norepinephrine Bitartrate 250 ml @ 21.129 mls/ hr CONT PRN 04/20/19 17:30 UNV Ondansetron HCl (Zofran) 4 mg PRN Q6HRS PRN 04/20/19 10:00 04/20/19 16:04 4 MG Pantoprazole Sodium (PROTONIX VIAL for IV PUSH) 40 mg DAILYAC 04/20/19 12:30 04/24/19 08:10 40 MG Piperacillin Sod/ Tazobactam Sod 3.375 gm/Sodium Chloride 50 ml @ 100 mls/hr Q6HRS 04/20/19 18:00 04/24/19 06:17 100 MLS/HR Potassium Chloride/Water 100 ml @ 100 mls/hr Q1H 04/20/19 12:00 04/20/19 15:59 DC 04/21/19 07:22 100 MLS/HR Potassium Chloride (Klor-Con) 40 meq 1X ONCE 04/20/19 11:30 04/20/19 11:31 Cancel Propofol 100 ml @ 1.69 mls/hr CONT PRN 04/20/19 17:15 04/20/19 17:36 6.761 MLS/HR Rocuronium [place] (Zemuron) 50 mg STK-MED ONCE 04/20/19 18:00 04/21/19 09:09 DC Sodium Chloride 500 ml @ 0 mls/hr QID PRN 04/22/19 12:00 04/24/19 03:07 500 MLS/HR Succinylcholine Chloride (Anectine) 80 mg 1X ONCE 04/20/19 17:30 04/20/19 17:31 DC 04/20/19 17:36 80 MG Vancomycin HCl (Vanco Per Pharmacy) 1 each PRN DAILY PRN 04/19/19 19:15 04/21/19 09:40 DC 04/20/19 14:29 1 EACH Vancomycin HCl (Vancomycin Trough Level) 1 each 1X ONCE 04/21/19 07:30 04/21/19 07:31 DC 04/21/19 10:49 1 EACH Vancomycin HCl 1.5 gm/Sodium Chloride 500 ml @ 250 mls/hr Q12H 04/20/19 08:00 04/21/19 09:40 DC 04/20/19 20:04 250 MLS/HR Vancomycin HCl 2 gm/Sodium Chloride 500 ml @ 250 mls/hr 1X ONCE 04/19/19 19:15 04/19/19 21:14 DC 04/19/19 20:01 250 MLS/HR Vasopressin 40 unit/Dextrose 102 ml @ 6 mls/hr CONT PRN 04/21/19 04:00 04/23/19 21:18 6 MLS/HR Labs: Lab Laboratory Tests Test 04/23/19 11:38 04/23/19 17:52 04/24/19 00:30 04/24/19 06:05 Glucose (Fingerstick) 230 mg/dL (70-99) 267 mg/dL (70-99) 316 mg/dL (70-99) White Blood Count 10.0 x10^3/uL (4.0-11.0) Red Blood Count 4.38 x10^6/uL (3.50-5.40) Hemoglobin 9.9 g/dL (12.0-15.5) Hematocrit 31.6 % (36.0-47.0) Mean Corpuscular Volume 72 fL (79-100) Mean Corpuscular Hemoglobin 23 pg (25-35) Mean Corpuscular Hemoglobin Concent 32 g/dL (31-37) Red Cell Distribution Width 18.8 % (11.5-14.5) Platelet Count 51 x10^3/uL (140-400) Neutrophils (%) (Auto) 85 % (31-73) Lymphocytes (%) (Auto) 10 % (24-48) Monocytes (%) (Auto) 4 % (0-9) Eosinophils (%) (Auto) 0 % (0-3) Basophils (%) (Auto) 0 % (0-3) Neutrophils # (Auto) 8.6 x10^3/uL (1.8-7.7) Lymphocytes # (Auto) 1.0 x10^3/uL (1.0-4.8) Monocytes # (Auto) 0.4 x10^3/uL (0.0-1.1) Eosinophils # (Auto) 0.0 x10^3/uL (0.0-0.7) Basophils # (Auto) 0.0 x10^3/uL (0.0-0.2) Sodium Level 141 mmol/L (136-145) Potassium Level 4.1 mmol/L (3.5-5.1) Chloride Level 106 mmol/L (98-107) Carbon Dioxide Level 22 mmol/L (21-32) Anion Gap 13 (6-14) Blood Urea Nitrogen 53 mg/dL (7-20) Creatinine 1.0 mg/dL (0.6-1.0) Estimated GFR (Cockcroft-Gault) 55.8 BUN/Creatinine Ratio 53 (6-20) Glucose Level 348 mg/dL (70-99) Calcium Level 8.5 mg/dL (8.5-10.1) Total Bilirubin 1.3 mg/dL (0.2-1.0) Aspartate Amino Transf (AST/SGOT) 55 U/L (15-37) Alanine Aminotransferase (ALT/SGPT) 35 U/L (14-59) Alkaline Phosphatase 122 U/L (46-116) Total Protein 5.9 g/dL (6.4-8.2) Albumin 2.5 g/dL (3.4-5.0) Albumin/Globulin Ratio 0.7 (1.0-1.7) Test 04/24/19 06:11 Glucose (Fingerstick) 326 mg/dL (70-99) Micro RUN DATE: 04/23/19 PAGE 1 RUN TIME: 1510 [facility] [address] [place] [address] Jae Wright M.D., [employer] PATIENT: XENA LEE ACCT: [id number] LOC: 1 [place] ICU U: [id number] AGE/SX: 63/F ROOM: 115 RE04/19/[address]: ASHLY SIEGEL MD : 1955 BED: 1 DIS: STATUS: ADM IN TLOC: ------ ------ SPEC #: [id number] WEST: 04/19/19 STATUS: COMP REQ #: [id number] RECD: 04/19/[address]: BENJIE DE LOS SANTOS MD SOURCE: BLOOD ENTR: 04/20/19-[address] [facility] [address]: GEOVANNA LUEVANO [facility]: ORDERED: BLD CULT - LC Procedure Result BLOOD CULTURE LC Final Preliminary report Final report BLD CULT RESULT 1 Final Comment Staphylococcus species Performed at: DA - [facility] [place] [id number] [facility] [address], [place], [place] [id number] [employer] G: BHARGAVI Smart MD, Phone: [phone] Staphylococcus epidermidis Based on susceptibility to oxacillin this isolate would be susceptible to: *Penicillinase-stable penicillins, such as: Cloxacillin, Dicloxacillin, Nafcillin *Beta-lactam combination agents, such as: Amoxicillin-clavulanic acid, Ampicillin-sulbactam, Piperacillin-tazobactam *Oral cephems, such as: Cefaclor, Cefdinir, Cefpodoxime, Cefprozil, Cefuroxime, Cephalexin, Loracarbef *Parenteral cephems, such as: Cefazolin, Cefepime, Cefotaxime, Cefotetan, Ceftaroline, Ceftizoxime, Ceftriaxone, Cefuroxime *Carbapenems, such as: Doripenem, Ertapenem, Imipenem, Meropenem ANTIMICROBIAL SUSCEPTIBILITY Final Comment S = Susceptible; I = Intermediate; R = Resistant P = Positive; N = Negative MICS are expressed in micrograms per mL Antibiotic RSLT#1 RSLT#2 RSLT#3 RSLT#4 Ciprofloxacin S<=0.5 Clindamycin S<=0.25 Erythromycin R>=8 Gentamicin S<=0.5 CONTINUED ON NEXT PAGE RUN DATE: 04/23/19 PAGE 2 RUN TIME: 1510 [facility] [address] [place] [address] Jae Wright M.D., [employer] SPEC: [id number] PATIENT: XENA LEE [id number] (Continued) Procedure Result - ANTIMICROBIAL SUSCEPTIBILITY Final (continued) Levofloxacin S<=0.12 Linezolid S =1 Nitrofurantoin S<=16 Oxacillin S<=0.25 Penicillin R>=0.5 Quinupristin/Dalfopristin S<=0.25 Rifampin S<=0.5 Tetracycline S<=1 Trimethoprim/Sulfa S<=10 Vancomycin S =1 Performed at: [employer] [facility] [place] [address] [facility] [address], [place], [place] [id number] [employer] G: BHARGAVI Smart MD, Phone: [phone] Objective: Assessment: Sepsis with fever - better. Procalcitonin >25. Levophed tapering off Leukocytosis - better MSSA Bacteremia 04/19 08/17 BOTTLES Pneumonia Lactic acidosis. This may have been ischemic colon, but also sepsis is possible. Urinary tract infection versus hematuria. UC no growth Respiratory failure Poor personal hygiene. Sacral decubitus. Status post fall. Abdominal pain. Large pelvic mass Transaminitis Chronic liver disease Dilated gallbladder with gallbladder sludge and wall thickening, Small upper abdominal ascites. Splenomegaly. Plan: Plan of Care Continue Zosyn for now S/P Dapto 04/23 Tapering Levophed F/u BC 04/21 ; neg so far Supportive care Overall prognosis poor Consider palliative care for goal of tx d/w Nursing staff CARLITOS VILLASEÑOR MD Apr 24, 2019 08:53
[2019-04-24 08:58] LABS: BASE EXCESS ABG -6 mmol/L (-3-3); HCO3 ABG 19 mmol/L (21-28); PCO2 ABG 33 mmHg (35-46); PO2 ABG 124 mmHg (65-108); SAT O2 ABG 98 % (92-99)
[2019-04-24 09:00] LABS: FIO2 ABG 40
--- NOTE | 2019-04-24 10:06 | PDOC ---
Objective: Objective: Reviewed w/ nurse - vent setting improved, still on pressors, less OG output. On PPN and IV PPI. Vital Signs: Vital Signs Date Time Temp Pulse Resp B/P (MAP) Pulse Ox O2 Delivery O2 Flow Rate FiO2 04/24/19 08:35 100 Ventilator 04/24/19 07:32 20 04/24/19 06:00 76 110/61 (77) 04/24/19 04:00 98.0 98.0 04/23/19 09:00 98.0 Labs: Laboratory Tests Test 04/23/19 11:38 04/23/19 17:52 04/24/19 00:30 04/24/19 06:05 Glucose (Fingerstick) 230 mg/dL 267 mg/dL 316 mg/dL White Blood Count 10.0 x10^3/uL Red Blood Count 4.38 x10^6/uL Hemoglobin 9.9 g/dL Hematocrit 31.6 % Mean Corpuscular Volume 72 fL Mean Corpuscular Hemoglobin 23 pg Mean Corpuscular Hemoglobin Concent 32 g/dL Red Cell Distribution Width 18.8 % Platelet Count 51 x10^3/uL Neutrophils (%) (Auto) 85 % Lymphocytes (%) (Auto) 10 % Monocytes (%) (Auto) 4 % Eosinophils (%) (Auto) 0 % Basophils (%) (Auto) 0 % Neutrophils # (Auto) 8.6 x10^3/uL Lymphocytes # (Auto) 1.0 x10^3/uL Monocytes # (Auto) 0.4 x10^3/uL Eosinophils # (Auto) 0.0 x10^3/uL Basophils # (Auto) 0.0 x10^3/uL Sodium Level 141 mmol/L Potassium Level 4.1 mmol/L Chloride Level 106 mmol/L Carbon Dioxide Level 22 mmol/L Anion Gap 13 Blood Urea Nitrogen 53 mg/dL Creatinine 1.0 mg/dL Estimated GFR (Cockcroft-Gault) 55.8 BUN/Creatinine Ratio 53 Glucose Level 348 mg/dL Calcium Level 8.5 mg/dL Total Bilirubin 1.3 mg/dL Aspartate Amino Transf (AST/SGOT) 55 U/L Alanine Aminotransferase (ALT/SGPT) 35 U/L Alkaline Phosphatase 122 U/L Total Protein 5.9 g/dL Albumin 2.5 g/dL Albumin/Globulin Ratio 0.7 Test 04/24/19 06:11 04/24/19 08:35 Glucose (Fingerstick) 326 mg/dL O2 Saturation 98 % Arterial Blood pH 7.38 Arterial Blood pCO2 at Patient Temp 33 mmHg Arterial Blood pO2 at Patient Temp 124 mmHg Arterial Blood HCO3 19 mmol/L Arterial Blood Base Excess -6 mmol/L FiO2 40 URINE CULTURE Final Final report URINE CULTURE RES 1 Final No growth BLOOD CULTURE LC Final Preliminary report Final report BLD CULT RESULT 1 Final Comment Staphylococcus species Imaging: Echo 04/20 <Conclusion> Left ventricle systolic function is low normal. The Ejection Fraction is 50-55%. There is normal LV segmental wall motion. Technically difficult study. Abd US 04/21 IMPRESSION: 1. Heterogeneous enlarged nodular liver, may indicate chronic liver disease although hepatitis is possible. 2. Dilated gallbladder with gallbladder sludge and wall thickening, may relate to liver disease. If concern for acute cholecystitis HIDA scan can better evaluate gallbladder function. 3. Small upper abdominal ascites. 4. Splenomegaly. CXR 04/24 IMPRESSION: 1. Stable multifocal bilateral airspace opacities. 2. Stable small bilateral pleural effusions. 3. Stable life support devices. PE: GEN: intubated LUNGS: vent HEART: RRR ABD: less firm compared to Wednesday NEURO/PSYCH: sedated A/P: Umbilical hernia w/ SBO - prohibitive surgical candidate Resp failure, hypotension, sepsis/staph bacteremia Left adnexal mass, lymphadenopathy - PC has seen, family wants full/aggressive care - ?family meeting later Cirrhosis w/ portal hypertension - Hepatitis panel neg, LFTs better Anemia w/ element of iron deficiency, thrombocytopenia, coagulopathy -- Remains ill, continue support per GI. DESHAWN SALEH Apr 24, 2019 10:06
--- NOTE | 2019-04-24 10:32 | PDOC ---
NATE FREEMAN REPAIR [facility]ER 04/24/19 1031: SURGICAL PROGRESS NOTE Subjective vent Vital Signs Vital Signs Date Time Temp Pulse Resp B/P (MAP) Pulse Ox O2 Delivery O2 Flow Rate FiO2 04/24/19 08:35 100 Ventilator 04/24/19 07:32 20 04/24/19 06:00 76 110/61 (77) 04/24/19 04:00 98.0 98.0 04/23/19 09:00 98.0 I&O Intake and Output 04/24/19 07:00 Intake Total 3257.43 ml Output Total 1180 ml Balance 2077.43 ml IV Total 3257.43 ml Output Urine Total 980 ml Gastric Drainage Total 200 ml # Voids 1 General: No acute distress HEENT: Other (vent) Abdomen: Soft, Other (umbo hernia, unable to reduce) Labs Laboratory Tests Test 04/22/19 12:52 04/22/19 23:22 04/23/19 06:15 04/23/19 08:00 Glucose (Fingerstick) 247 mg/dL (70-99) 256 mg/dL (70-99) 248 mg/dL (70-99) White Blood Count 19.0 x10^3/uL (4.0-11.0) Red Blood Count 4.85 x10^6/uL (3.50-5.40) Hemoglobin 11.0 g/dL (12.0-15.5) Hematocrit 34.9 % (36.0-47.0) Mean Corpuscular Volume 72 fL (79-100) Mean Corpuscular Hemoglobin 23 pg (25-35) Mean Corpuscular Hemoglobin Concent 32 g/dL (31-37) Red Cell Distribution Width 18.6 % (11.5-14.5) Platelet Count 82 x10^3/uL (140-400) Neutrophils (%) (Auto) 88 % (31-73) Lymphocytes (%) (Auto) 7 % (24-48) Monocytes (%) (Auto) 4 % (0-9) Eosinophils (%) (Auto) 1 % (0-3) Basophils (%) (Auto) 0 % (0-3) Neutrophils # (Auto) 16.7 x10^3/uL (1.8-7.7) Lymphocytes # (Auto) 1.4 x10^3/uL (1.0-4.8) Monocytes # (Auto) 0.7 x10^3/uL (0.0-1.1) Eosinophils # (Auto) 0.1 x10^3/uL (0.0-0.7) Basophils # (Auto) 0.0 x10^3/uL (0.0-0.2) Segmented Neutrophils % 75 % (35-66) Band Neutrophils % 16 % (0-9) Lymphocytes % 6 % (24-48) Monocytes % 1 % (0-10) Eosinophils % 2 % (0-5) Platelet Estimate Decreased (ADEQUATE) Platelet Clumps, EDTA Present Large Platelets Giant Platelets Sodium Level 141 mmol/L (136-145) Potassium Level 4.0 mmol/L (3.5-5.1) Chloride Level 105 mmol/L (98-107) Carbon Dioxide Level 20 mmol/L (21-32) Anion Gap 16 (6-14) Blood Urea Nitrogen 52 mg/dL (7-20) Creatinine 1.2 mg/dL (0.6-1.0) Estimated GFR (Cockcroft-Gault) 45.2 BUN/Creatinine Ratio 43 (6-20) Glucose Level 255 mg/dL (70-99) Calcium Level 8.5 mg/dL (8.5-10.1) Total Bilirubin 1.2 mg/dL (0.2-1.0) Aspartate Amino Transf (AST/SGOT) 117 U/L (15-37) Alanine Aminotransferase (ALT/SGPT) 54 U/L (14-59) Alkaline Phosphatase 155 U/L (46-116) Total Protein 5.9 g/dL (6.4-8.2) Albumin 2.2 g/dL (3.4-5.0) Albumin/Globulin Ratio 0.6 (1.0-1.7) O2 Saturation 98 % (92-99) Arterial Blood pH 7.34 (7.35-7.45) Arterial Blood pCO2 at Patient Temp 31 mmHg (35-46) Arterial Blood pO2 at Patient Temp 112 mmHg (65-108) Arterial Blood HCO3 16 mmol/L (21-28) Arterial Blood Base Excess -9 mmol/L (-3-3) Test 04/23/19 11:38 04/23/19 17:52 04/24/19 00:30 04/24/19 06:05 Glucose (Fingerstick) 230 mg/dL (70-99) 267 mg/dL (70-99) 316 mg/dL (70-99) White Blood Count 10.0 x10^3/uL (4.0-11.0) Red Blood Count 4.38 x10^6/uL (3.50-5.40) Hemoglobin 9.9 g/dL (12.0-15.5) Hematocrit 31.6 % (36.0-47.0) Mean Corpuscular Volume 72 fL (79-100) Mean Corpuscular Hemoglobin 23 pg (25-35) Mean Corpuscular Hemoglobin Concent 32 g/dL (31-37) Red Cell Distribution Width 18.8 % (11.5-14.5) Platelet Count 51 x10^3/uL (140-400) Neutrophils (%) (Auto) 85 % (31-73) Lymphocytes (%) (Auto) 10 % (24-48) Monocytes (%) (Auto) 4 % (0-9) Eosinophils (%) (Auto) 0 % (0-3) Basophils (%) (Auto) 0 % (0-3) Neutrophils # (Auto) 8.6 x10^3/uL (1.8-7.7) Lymphocytes # (Auto) 1.0 x10^3/uL (1.0-4.8) Monocytes # (Auto) 0.4 x10^3/uL (0.0-1.1) Eosinophils # (Auto) 0.0 x10^3/uL (0.0-0.7) Basophils # (Auto) 0.0 x10^3/uL (0.0-0.2) Sodium Level 141 mmol/L (136-145) Potassium Level 4.1 mmol/L (3.5-5.1) Chloride Level 106 mmol/L (98-107) Carbon Dioxide Level 22 mmol/L (21-32) Anion Gap 13 (6-14) Blood Urea Nitrogen 53 mg/dL (7-20) Creatinine 1.0 mg/dL (0.6-1.0) Estimated GFR (Cockcroft-Gault) 55.8 BUN/Creatinine Ratio 53 (6-20) Glucose Level 348 mg/dL (70-99) Calcium Level 8.5 mg/dL (8.5-10.1) Total Bilirubin 1.3 mg/dL (0.2-1.0) Aspartate Amino Transf (AST/SGOT) 55 U/L (15-37) Alanine Aminotransferase (ALT/SGPT) 35 U/L (14-59) Alkaline Phosphatase 122 U/L (46-116) Total Protein 5.9 g/dL (6.4-8.2) Albumin 2.5 g/dL (3.4-5.0) Albumin/Globulin Ratio 0.7 (1.0-1.7) Test 04/24/19 06:11 04/24/19 08:35 Glucose (Fingerstick) 326 mg/dL (70-99) O2 Saturation 98 % (92-99) Arterial Blood pH 7.38 (7.35-7.45) Arterial Blood pCO2 at Patient Temp 33 mmHg (35-46) Arterial Blood pO2 at Patient Temp 124 mmHg (65-108) Arterial Blood HCO3 19 mmol/L (21-28) Arterial Blood Base Excess -6 mmol/L (-3-3) FiO2 40 Laboratory Tests Test 04/23/19 11:38 04/23/19 17:52 04/24/19 00:30 04/24/19 06:05 Glucose (Fingerstick) 230 mg/dL (70-99) 267 mg/dL (70-99) 316 mg/dL (70-99) White Blood Count 10.0 x10^3/uL (4.0-11.0) Red Blood Count 4.38 x10^6/uL (3.50-5.40) Hemoglobin 9.9 g/dL (12.0-15.5) Hematocrit 31.6 % (36.0-47.0) Mean Corpuscular Volume 72 fL (79-100) Mean Corpuscular Hemoglobin 23 pg (25-35) Mean Corpuscular Hemoglobin Concent 32 g/dL (31-37) Red Cell Distribution Width 18.8 % (11.5-14.5) Platelet Count 51 x10^3/uL (140-400) Neutrophils (%) (Auto) 85 % (31-73) Lymphocytes (%) (Auto) 10 % (24-48) Monocytes (%) (Auto) 4 % (0-9) Eosinophils (%) (Auto) 0 % (0-3) Basophils (%) (Auto) 0 % (0-3) Neutrophils # (Auto) 8.6 x10^3/uL (1.8-7.7) Lymphocytes # (Auto) 1.0 x10^3/uL (1.0-4.8) Monocytes # (Auto) 0.4 x10^3/uL (0.0-1.1) Eosinophils # (Auto) 0.0 x10^3/uL (0.0-0.7) Basophils # (Auto) 0.0 x10^3/uL (0.0-0.2) Sodium Level 141 mmol/L (136-145) Potassium Level 4.1 mmol/L (3.5-5.1) Chloride Level 106 mmol/L (98-107) Carbon Dioxide Level 22 mmol/L (21-32) Anion Gap 13 (6-14) Blood Urea Nitrogen 53 mg/dL (7-20) Creatinine 1.0 mg/dL (0.6-1.0) Estimated GFR (Cockcroft-Gault) 55.8 BUN/Creatinine Ratio 53 (6-20) Glucose Level 348 mg/dL (70-99) Calcium Level 8.5 mg/dL (8.5-10.1) Total Bilirubin 1.3 mg/dL (0.2-1.0) Aspartate Amino Transf (AST/SGOT) 55 U/L (15-37) Alanine Aminotransferase (ALT/SGPT) 35 U/L (14-59) Alkaline Phosphatase 122 U/L (46-116) Total Protein 5.9 g/dL (6.4-8.2) Albumin 2.5 g/dL (3.4-5.0) Albumin/Globulin Ratio 0.7 (1.0-1.7) Test 04/24/19 06:11 04/24/19 08:35 Glucose (Fingerstick) 326 mg/dL (70-99) O2 Saturation 98 % (92-99) Arterial Blood pH 7.38 (7.35-7.45) Arterial Blood pCO2 at Patient Temp 33 mmHg (35-46) Arterial Blood pO2 at Patient Temp 124 mmHg (65-108) Arterial Blood HCO3 19 mmol/L (21-28) Arterial Blood Base Excess -6 mmol/L (-3-3) FiO2 40 Problem List Problems Medical Problems: (1) Diabetes Status: Acute (2) Fall Status: Acute (3) Severe sepsis Status: Acute (4) UTI (urinary tract infection) Status: Acute (5) Weakness Status: Acute Assessment/Plan umbo hernia will review with Dr Pichardo poor surgical candidate NATE PICHARDO MD 04/24/19 1437: SURGICAL PROGRESS NOTE Assessment/Plan Pt seen and examined. Agree with Ms. Freeman's note Pt appears comfortable on vent abd soft, hernia incarcerated cont supportive care NATE FREEMAN [facility]ER Apr 24, 2019 10:31 NATE PICHARDO MD Apr 24, 2019 14:37
--- NOTE | 2019-04-24 11:05 | PDOC ---
PROGRESS NOTES History of Present Illness History of Present Illness ASSESSMENT AND PLAN: Gastrointestinal bleed, incarcerated umbilical hernia failure to thrive, multiple hypokalemia, hyponatremia, azotemia, dehydration, new onset diabetes, extreme morbid obesity probable malnutrition sepsis Small umbilical hernia containing a short segment of small bowel which is causing small bowel obstruction. Dilated loops of small bowel are seen proximally and decompressed loops distally. Patchy airspace disease the lung bases favored represent pneumonia. 04/23 Increasing bilateral lower lobe left greater than right atelectasis and/or infiltrate. Septic Shock/ UO better on IVF and Pressors. Worsening bilateral infiltrates, likely aspiration pneumonia. Trace left pleural effusion. enlarged retroperitoneal lymph nodes, which are nonspecific however abnormal. Recommend correlation with history of malignancy. In the absence of known causes of lymphadenopathy tissue sampling would be recommended. Left adnexal mass measuring approximately 8.3 cm. Uncertain whether this is ovarian in etiology or representing a pedunculated fibroid. Initial Further evaluation with ultrasound is recommended when clinically appropriate. Cirrhotic morphology of the liver with secondary sequela of portal hypertension including splenomegaly and ascites. A component of the free fluid may be also reactive to the small bowel obstruction. Nonobstructing 3 mm calculus at the mid right kidney. CXR 04/21 New right internal jugular central line with tip in acceptable position Otherwise stable support lines and tubes 04/21 Bilateral interstitial and alveolar infiltrates hematuria Heterogeneous enlarged nodular liver, may indicate chronic liver disease although hepatitis is possible. Dilated gallbladder with gallbladder sludge and wall thickening, may relate to liver disease. If concern for acute cholecystitis HIDA scan can better evaluate gallbladder function. Small upper abdominal ascites. Splenomegaly. FEVER Thrombocytopenia, monitor Palliative care consult Hypotensive, on Levophed stasis dermatitis both legs severe protein-caloric malnutrition admitted. 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 Palliative Care following 38 MIN CC TIME Vitals Vitals Vital Signs Date Time Temp Pulse Resp B/P (MAP) Pulse Ox O2 Delivery O2 Flow Rate FiO2 9/9/19 08:35 100 Ventilator 04/24/19 07:32 20 04/24/19 06:00 76 110/61 (77) 04/24/19 04:00 98.0 98.0 04/23/19 09:00 98.0 Physical Exam Physical Exam GENERAL: Orally intubated, sedated, mitts HEENT: Pupils equal, small. ETT/ OGT NECK: Supple. Left EJ LUNGS: Clear. HEART: S1, S2 regular. ABDOMEN: Soft, Umbilical hernia present. Large pannus present. EXTREMITIES: Both lower extremities have venous insufficiency, stasis dermatitis on both the legs posteriorly. Trace edema SKIN: Warm to touch. sacral wound NEUROLOGIC: Sedated on vent RIJ clean General: No acute distress Heart: Regular rate, Other (distant heart tones ) Lungs: Other (deminished) Abdomen: Soft, Other Extremities: Other (extensive lymphedema) Skin: No significant lesion Labs LABS Laboratory Tests Test 04/23/19 11:38 04/23/19 17:52 04/24/19 00:30 04/24/19 06:05 Glucose (Fingerstick) 230 mg/dL (70-99) 267 mg/dL (70-99) 316 mg/dL (70-99) White Blood Count 10.0 x10^3/uL (4.0-11.0) Red Blood Count 4.38 x10^6/uL (3.50-5.40) Hemoglobin 9.9 g/dL (12.0-15.5) Hematocrit 31.6 % (36.0-47.0) Mean Corpuscular Volume 72 fL (79-100) Mean Corpuscular Hemoglobin 23 pg (25-35) Mean Corpuscular Hemoglobin Concent 32 g/dL (31-37) Red Cell Distribution Width 18.8 % (11.5-14.5) Platelet Count 51 x10^3/uL (140-400) Neutrophils (%) (Auto) 85 % (31-73) Lymphocytes (%) (Auto) 10 % (24-48) Monocytes (%) (Auto) 4 % (0-9) Eosinophils (%) (Auto) 0 % (0-3) Basophils (%) (Auto) 0 % (0-3) Neutrophils # (Auto) 8.6 x10^3/uL (1.8-7.7) Lymphocytes # (Auto) 1.0 x10^3/uL (1.0-4.8) Monocytes # (Auto) 0.4 x10^3/uL (0.0-1.1) Eosinophils # (Auto) 0.0 x10^3/uL (0.0-0.7) Basophils # (Auto) 0.0 x10^3/uL (0.0-0.2) Sodium Level 141 mmol/L (136-145) Potassium Level 4.1 mmol/L (3.5-5.1) Chloride Level 106 mmol/L (98-107) Carbon Dioxide Level 22 mmol/L (21-32) Anion Gap 13 (6-14) Blood Urea Nitrogen 53 mg/dL (7-20) Creatinine 1.0 mg/dL (0.6-1.0) Estimated GFR (Cockcroft-Gault) 55.8 BUN/Creatinine Ratio 53 (6-20) Glucose Level 348 mg/dL (70-99) Calcium Level 8.5 mg/dL (8.5-10.1) Total Bilirubin 1.3 mg/dL (0.2-1.0) Aspartate Amino Transf (AST/SGOT) 55 U/L (15-37) Alanine Aminotransferase (ALT/SGPT) 35 U/L (14-59) Alkaline Phosphatase 122 U/L (46-116) Total Protein 5.9 g/dL (6.4-8.2) Albumin 2.5 g/dL (3.4-5.0) Albumin/Globulin Ratio 0.7 (1.0-1.7) Test 04/24/19 06:11 04/24/19 08:35 Glucose (Fingerstick) 326 mg/dL (70-99) O2 Saturation 98 % (92-99) Arterial Blood pH 7.38 (7.35-7.45) Arterial Blood pCO2 at Patient Temp 33 mmHg (35-46) Arterial Blood pO2 at Patient Temp 124 mmHg (65-108) Arterial Blood HCO3 19 mmol/L (21-28) Arterial Blood Base Excess -6 mmol/L (-3-3) FiO2 40 Assessment and Plan Assessmemt and Plan Problems Medical Problems: (1) Diabetes Status: Acute (2) Fall Status: Acute (3) Severe sepsis Status: Acute (4) UTI (urinary tract infection) Status: Acute (5) Weakness Status: Acute Comment Review of Relevant I have reviewed the following items ashok (where applicable) has been applied. Labs Laboratory Tests Test 04/22/19 12:52 04/22/19 23:22 04/23/19 06:15 04/23/19 08:00 Glucose (Fingerstick) 247 mg/dL (70-99) 256 mg/dL (70-99) 248 mg/dL (70-99) White Blood Count 19.0 x10^3/uL (4.0-11.0) Red Blood Count 4.85 x10^6/uL (3.50-5.40) Hemoglobin 11.0 g/dL (12.0-15.5) Hematocrit 34.9 % (36.0-47.0) Mean Corpuscular Volume 72 fL (79-100) Mean Corpuscular Hemoglobin 23 pg (25-35) Mean Corpuscular Hemoglobin Concent 32 g/dL (31-37) Red Cell Distribution Width 18.6 % (11.5-14.5) Platelet Count 82 x10^3/uL (140-400) Neutrophils (%) (Auto) 88 % (31-73) Lymphocytes (%) (Auto) 7 % (24-48) Monocytes (%) (Auto) 4 % (0-9) Eosinophils (%) (Auto) 1 % (0-3) Basophils (%) (Auto) 0 % (0-3) Neutrophils # (Auto) 16.7 x10^3/uL (1.8-7.7) Lymphocytes # (Auto) 1.4 x10^3/uL (1.0-4.8) Monocytes # (Auto) 0.7 x10^3/uL (0.0-1.1) Eosinophils # (Auto) 0.1 x10^3/uL (0.0-0.7) Basophils # (Auto) 0.0 x10^3/uL (0.0-0.2) Segmented Neutrophils % 75 % (35-66) Band Neutrophils % 16 % (0-9) Lymphocytes % 6 % (24-48) Monocytes % 1 % (0-10) Eosinophils % 2 % (0-5) Platelet Estimate Decreased (ADEQUATE) Platelet Clumps, EDTA Present Large Platelets Giant Platelets Sodium Level 141 mmol/L (136-145) Potassium Level 4.0 mmol/L (3.5-5.1) Chloride Level 105 mmol/L (98-107) Carbon Dioxide Level 20 mmol/L (21-32) Anion Gap 16 (6-14) Blood Urea Nitrogen 52 mg/dL (7-20) Creatinine 1.2 mg/dL (0.6-1.0) Estimated GFR (Cockcroft-Gault) 45.2 BUN/Creatinine Ratio 43 (6-20) Glucose Level 255 mg/dL (70-99) Calcium Level 8.5 mg/dL (8.5-10.1) Total Bilirubin 1.2 mg/dL (0.2-1.0) Aspartate Amino Transf (AST/SGOT) 117 U/L (15-37) Alanine Aminotransferase (ALT/SGPT) 54 U/L (14-59) Alkaline Phosphatase 155 U/L (46-116) Total Protein 5.9 g/dL (6.4-8.2) Albumin 2.2 g/dL (3.4-5.0) Albumin/Globulin Ratio 0.6 (1.0-1.7) O2 Saturation 98 % (92-99) Arterial Blood pH 7.34 (7.35-7.45) Arterial Blood pCO2 at Patient Temp 31 mmHg (35-46) Arterial Blood pO2 at Patient Temp 112 mmHg (65-108) Arterial Blood HCO3 16 mmol/L (21-28) Arterial Blood Base Excess -9 mmol/L (-3-3) Test 04/23/19 11:38 04/23/19 17:52 04/24/19 00:30 04/24/19 06:05 Glucose (Fingerstick) 230 mg/dL (70-99) 267 mg/dL (70-99) 316 mg/dL (70-99) White Blood Count 10.0 x10^3/uL (4.0-11.0) Red Blood Count 4.38 x10^6/uL (3.50-5.40) Hemoglobin 9.9 g/dL (12.0-15.5) Hematocrit 31.6 % (36.0-47.0) Mean Corpuscular Volume 72 fL (79-100) Mean Corpuscular Hemoglobin 23 pg (25-35) Mean Corpuscular Hemoglobin Concent 32 g/dL (31-37) Red Cell Distribution Width 18.8 % (11.5-14.5) Platelet Count 51 x10^3/uL (140-400) Neutrophils (%) (Auto) 85 % (31-73) Lymphocytes (%) (Auto) 10 % (24-48) Monocytes (%) (Auto) 4 % (0-9) Eosinophils (%) (Auto) 0 % (0-3) Basophils (%) (Auto) 0 % (0-3) Neutrophils # (Auto) 8.6 x10^3/uL (1.8-7.7) Lymphocytes # (Auto) 1.0 x10^3/uL (1.0-4.8) Monocytes # (Auto) 0.4 x10^3/uL (0.0-1.1) Eosinophils # (Auto) 0.0 x10^3/uL (0.0-0.7) Basophils # (Auto) 0.0 x10^3/uL (0.0-0.2) Sodium Level 141 mmol/L (136-145) Potassium Level 4.1 mmol/L (3.5-5.1) Chloride Level 106 mmol/L (98-107) Carbon Dioxide Level 22 mmol/L (21-32) Anion Gap 13 (6-14) Blood Urea Nitrogen 53 mg/dL (7-20) Creatinine 1.0 mg/dL (0.6-1.0) Estimated GFR (Cockcroft-Gault) 55.8 BUN/Creatinine Ratio 53 (6-20) Glucose Level 348 mg/dL (70-99) Calcium Level 8.5 mg/dL (8.5-10.1) Total Bilirubin 1.3 mg/dL (0.2-1.0) Aspartate Amino Transf (AST/SGOT) 55 U/L (15-37) Alanine Aminotransferase (ALT/SGPT) 35 U/L (14-59) Alkaline Phosphatase 122 U/L (46-116) Total Protein 5.9 g/dL (6.4-8.2) Albumin 2.5 g/dL (3.4-5.0) Albumin/Globulin Ratio 0.7 (1.0-1.7) Test 04/24/19 06:11 04/24/19 08:35 Glucose (Fingerstick) 326 mg/dL (70-99) O2 Saturation 98 % (92-99) Arterial Blood pH 7.38 (7.35-7.45) Arterial Blood pCO2 at Patient Temp 33 mmHg (35-46) Arterial Blood pO2 at Patient Temp 124 mmHg (65-108) Arterial Blood HCO3 19 mmol/L (21-28) Arterial Blood Base Excess -6 mmol/L (-3-3) FiO2 40 Laboratory Tests Test 04/23/19 11:38 04/23/19 17:52 04/24/19 00:30 04/24/19 06:05 Glucose (Fingerstick) 230 mg/dL (70-99) 267 mg/dL (70-99) 316 mg/dL (70-99) White Blood Count 10.0 x10^3/uL (4.0-11.0) Red Blood Count 4.38 x10^6/uL (3.50-5.40) Hemoglobin 9.9 g/dL (12.0-15.5) Hematocrit 31.6 % (36.0-47.0) Mean Corpuscular Volume 72 fL (79-100) Mean Corpuscular Hemoglobin 23 pg (25-35) Mean Corpuscular Hemoglobin Concent 32 g/dL (31-37) Red Cell Distribution Width 18.8 % (11.5-14.5) Platelet Count 51 x10^3/uL (140-400) Neutrophils (%) (Auto) 85 % (31-73) Lymphocytes (%) (Auto) 10 % (24-48) Monocytes (%) (Auto) 4 % (0-9) Eosinophils (%) (Auto) 0 % (0-3) Basophils (%) (Auto) 0 % (0-3) Neutrophils # (Auto) 8.6 x10^3/uL (1.8-7.7) Lymphocytes # (Auto) 1.0 x10^3/uL (1.0-4.8) Monocytes # (Auto) 0.4 x10^3/uL (0.0-1.1) Eosinophils # (Auto) 0.0 x10^3/uL (0.0-0.7) Basophils # (Auto) 0.0 x10^3/uL (0.0-0.2) Sodium Level 141 mmol/L (136-145) Potassium Level 4.1 mmol/L (3.5-5.1) Chloride Level 106 mmol/L (98-107) Carbon Dioxide Level 22 mmol/L (21-32) Anion Gap 13 (6-14) Blood Urea Nitrogen 53 mg/dL (7-20) Creatinine 1.0 mg/dL (0.6-1.0) Estimated GFR (Cockcroft-Gault) 55.8 BUN/Creatinine Ratio 53 (6-20) Glucose Level 348 mg/dL (70-99) Calcium Level 8.5 mg/dL (8.5-10.1) Total Bilirubin 1.3 mg/dL (0.2-1.0) Aspartate Amino Transf (AST/SGOT) 55 U/L (15-37) Alanine Aminotransferase (ALT/SGPT) 35 U/L (14-59) Alkaline Phosphatase 122 U/L (46-116) Total Protein 5.9 g/dL (6.4-8.2) Albumin 2.5 g/dL (3.4-5.0) Albumin/Globulin Ratio 0.7 (1.0-1.7) Test 04/24/19 06:11 04/24/19 08:35 Glucose (Fingerstick) 326 mg/dL (70-99) O2 Saturation 98 % (92-99) Arterial Blood pH 7.38 (7.35-7.45) Arterial Blood pCO2 at Patient Temp 33 mmHg (35-46) Arterial Blood pO2 at Patient Temp 124 mmHg (65-108) Arterial Blood HCO3 19 mmol/L (21-28) Arterial Blood Base Excess -6 mmol/L (-3-3) FiO2 40 Microbiology 04/21/19 Blood Culture - Preliminary, Resulted NO GROWTH AFTER 2 DAYS 04/19/19 Urine Culture - Final, Complete 04/19/19 Urine Culture Result 1 (YODIT) - Final, Complete Medications Current Medications Sodium Chloride 1,000 ml @ 0 mls/hr 1X ONCE IV Last administered on 04/19/19at 20:10; Start 04/19/19 at 18:45; Stop 04/19/19 at 18:46; Status DC Ceftriaxone Sodium (Rocephin) 1 gm 1X ONCE IVP Last administered on 04/19/19at 19:17; Start 04/19/19 at 18:45; Stop 04/19/19 at 18:46; Status DC Sodium Chloride 1,560 ml @ 1,560 mls/hr Q1H IV ; Start 04/19/19 at 19:03; Status Cancel Vancomycin HCl (Vanco Per Pharmacy) 1 each PRN DAILY PRN MC SEE COMMENTS Last administered on 04/20/19at 14:29; Start 04/19/19 at 19:15; Stop 04/21/19 at 09:40; Status DC Vancomycin HCl 2 gm/Sodium Chloride 500 ml @ 250 mls/hr 1X ONCE IV Last administered on 04/19/19at 20:01; Start 04/19/19 at 19:15; Stop 04/19/19 at 21:14; Status DC Sodium Chloride 1,000 ml @ 1,560 mls/hr Q39M IV Last administered on 04/19/19at 19:17; Start 04/19/19 at 19:15; Stop 04/19/19 at 20:03; Status DC Ondansetron HCl (Zofran) 4 mg PRN Q8HRS PRN IV NAUSEA/VOMITING Last admini stered on 04/20/19at 09:36; Start 04/19/19 at 19:30; Stop 04/20/19 at 10:00; Status DC Acetaminophen (Tylenol) 650 mg PRN Q4HRS PRN PO FEVER; Start 04/19/19 at 19:30; Stop 04/20/19 at 19:29; Status DC Insulin Human Lispro (HumaLOG) 0-7 UNITS TIDWMEALS SQ Last administered on 04/20/19at 19:52; Start 04/20/19 at 08:00; Stop 04/21/19 at 07:48; Status DC Dextrose (Dextrose 50%-Water Syringe) 12.5 gm PRN Q15MIN PRN IV SEE COMMENTS; Start 04/19/19 at 19:30 Dextrose 250 ml PRN Q15MIN PRN IV SEE COMMENTS; Start 04/19/19 at 19:30 Vancomycin HCl 1.5 gm/Sodium Chloride 500 ml @ 250 mls/hr Q12H IV Last administered on 04/20/19at 20:04; Start 04/20/19 at 08:00; Stop 04/21/19 at 09:40; Status DC Vancomycin HCl (Vancomycin Trough Level) 1 each 1X ONCE MC Last administered on 04/21/19at 10:49; Start 04/21/19 at 07:30; Stop 04/21/19 at 07:31; Status DC Sodium Chloride 1,000 ml @ 80 mls/hr [id number] IV Last administered on 04/20/19at 02:46; Start 04/20/19 at 02:30; Stop 04/20/19 at 11:23; Status DC Insulin Human Lispro (HumaLOG) 4 units 1X ONCE SQ Last administered on 04/20/19at 04:04; Start 04/20/19 at 03:15; Stop 04/20/19 at 03:16; Status DC Ondansetron HCl (Zofran) 4 mg PRN Q6HRS PRN IV NAUSEA/VOMITING Last administered on 04/20/19at 16:04; Start 04/20/19 at 10:00 Sodium Chloride 500 ml @ 500 mls/hr 1X ONCE IV Last administered on 04/20/19at 11:30; Start 04/20/19 at 11:15; Stop 04/20/19 at 12:14; Status DC Potassium Chloride (Klor-Con) 40 meq 1X ONCE PO ; Start 04/20/19 at 11:30; Stop 04/20/19 at 11:31; Status Cancel Sodium Chloride 1,000 ml @ 150 mls/hr Q6H40M IV Last administered on 04/21/19at 23:04; Start 04/20/19 at 11:30; Stop 04/22/19 at 11:58; Status DC Pantoprazole Sodium (PROTONIX VIAL for IV PUSH) 40 mg DAILYAC IVP Last administered on 04/24/19at 08:10; Start 04/20/19 at 12:30 Potassium Chloride/Water 100 ml @ 100 mls/hr Q1H IV Last administered on 04/21/19at 07:22; Start 04/20/19 at 12:00; Stop 04/20/19 at 15:59; Status DC Metoprolol Tartrate (Lopressor) 25 mg BID PO ; Start 04/20/19 at 14:00; Stop 04/20/19 at 13:34; Status DC Metoprolol Tartrate (Lopressor Vial) 2.5 mg Q6HRS IVP Last administered on 04/20/19at 14:28; Start 04/20/19 at 14:30 Piperacillin Sod/ Tazobactam Sod 3.375 gm/Sodium Chloride 50 ml @ 100 mls/hr Q6HRS IV Last administered on 04/24/19at 06:17; Start 04/20/19 at 18:00 Sodium Chloride 1,000 ml @ 0 mls/hr 1X ONCE IV ; Start 04/20/19 at 15:45; Stop 04/20/19 at 15:49; Status DC Lactic Acid (Lac-Hydrin) 1 gauri BID TP Last administered on 04/24/19at 08:10; Start 04/20/19 at 21:00 Lorazepam (Ativan Inj) 1 mg PRN Q4HRS PRN IV ANXIETY / AGITATION; Start 04/20/19 at 16:15 Lorazepam (Ativan Inj) 1 mg PRN 1X ONCE IV ; Start 04/20/19 at 16:15; Stop 04/20/19 at 16:16; Status DC Propofol 100 ml @ As Directed STK-MED ONCE IV ; Start 04/20/19 at 16:42; Stop 04/20/19 at 16:42; Status DC Norepinephrine Bitartrate 250 ml @ 21 mls/hr CONT PRN IV SEE I/O RECORD Last administered on 04/23/19at 06:20; Start 04/20/19 at 17:15 Midazolam HCl (Versed) 5 mg STK-MED ONCE .ROUTE ; Start 04/20/19 at 17:04; Stop 04/20/19 at 17:05; Status DC Propofol 20 ml @ 0 mls/hr 1X ONCE IV Last administered on 04/20/19at 17:38; Start 04/20/19 at 17:15; Stop 04/20/19 at 17:16; Status DC Succinylcholine Chloride (Anectine) 80 mg 1X ONCE IV Last administered on 04/20/19at 17:36; Start 04/20/19 at 17:30; Stop 04/20/19 at 17:31; Status DC Midazolam HCl (Versed) 5 mg 1X ONCE IV Last administered on 04/20/19at 17:38; Start 04/20/19 at 17:15; Stop 04/20/19 at 17:19; Status DC Midazolam HCl 100 ml @ 5 mls/hr CONT PRN IV SEE I/O RECORD Last administered on 04/24/19at 03:54; Start 04/20/19 at 17:15 Propofol 100 ml @ 1.69 mls/hr CONT PRN IV SEE I/O RECORD Last administered on 04/20/19at 17:36; Start 04/20/19 at 17:15 Fentanyl Citrate 30 ml @ 0 mls/hr CONT PRN PRN IV PER PROTOCOL Last administered on 04/24/19at 03:36; Start 04/20/19 at 17:15 Naloxone HCl (Narcan) 0.4 mg PRN Q2MIN PRN IV SEE INSTRUCTIONS; Start 04/20/19 at 17:15 Sodium Chloride 1,000 ml @ 25 mls/hr Q24H IV Last administered on 04/24/19at 04:25; Start 04/20/19 at 17:12 Norepinephrine Bitartrate 250 ml @ 21.129 mls/ hr CONT PRN IV SEE I/O RECORD; Start 04/20/19 at 17:30; Status UNV Sodium Chloride 500 ml @ 500 mls/hr PRN Q1HR PRN IV LOW UO Last administered on 04/20/19at 19:52; Start 04/20/19 at 19:45; Stop 04/22/19 at 11:58; Status DC Dexmedetomidine HCl 400 mcg/ Sodium Chloride 100 ml @ 0 mls/hr CONT PRN IV SEDATION Last administered on 04/24/19at 03:54; Start 04/20/19 at 23:30 Sodium Chloride 500 ml @ 500 mls/hr 1X PRN PRN IV PER PROTOCOL; Start 04/20/19 at 23:30 Atropine Sulfate (ATROPINE 0.5mg SYRINGE) 0.5 mg PRN Q5MIN PRN IV SEE COMMENTS; Start 04/20/19 at 23:30 Albumin Human 100 ml @ 100 mls/hr 1X ONCE IV Last administered on 04/21/19at 01:34; Start 04/21/19 at 01:30; Stop 04/21/19 at 02:29; Status DC Sodium Chloride 1,000 ml @ 1,000 mls/hr 1X ONCE IV Last administered on 04/21at 05:39; Start 04/21/19 at 02:45; Stop 04/21/19 at 03:44; Status DC Albumin Human 500 ml @ 250 mls/hr Q2HR IV Last administered on 04/21/19at 06:28; Start 04/21/19 at 04:00; Stop 04/21/19 at 07:00; Status DC Vasopressin 40 unit/Dextrose 102 ml @ 6 mls/hr CONT PRN IV SEE I/O RECORD Last administered on 04/23/19at 21:18; Start 04/21/19 at 04:00 Epinephrine HCl 4 mg/Sodium Chloride 254 ml @ 42.935 mls/ hr CONT PRN IV SEE I/O RECORD; Start 04/21/19 at 05:00 Insulin Human Lispro (HumaLOG) 0-7 UNITS Q6HRS SQ Last administered on 04/24/19at 06:17; Start 04/21/19 at 12:00 Rocuronium [place] (Zemuron) 50 mg STK-MED ONCE .ROUTE ; Start 04/20/19 at 18:00; Stop 04/21/19 at 09:09; Status DC Sodium Chloride 1,000 ml @ 1,000 mls/hr 1X ONCE IV Last administered on 04/21/19at 10:53; Start 04/21/19 at 10:30; Stop 04/21/19 at 11:29; Status DC Lidocaine HCl (Xylocaine 2% Topical 5gm Tube) 5 gauri STK-MED ONCE TP ; Start 04/19/19 at 12:00; Stop 04/21/19 at 10:21; Status DC Acetaminophen (Tylenol Supp) 650 mg PRN Q6HRS PRN MI MILD PAIN / TEMP Last administered on 04/23/19at 20:56; Start 04/21/19 at 16:45 Enoxaparin Sodium (Lovenox 60mg Syringe) 60 mg Q12HR SQ Last administered on 04/21/19at 20:45; Start 04/21/19 at 21:00; Stop 04/22/19 at 15:40; Status DC Acetaminophen (Tylenol) 650 mg PRN Q6HRS PRN PEG MILD PAIN / TEMP; Start 04/22/19 at 00:15; Status Cancel Sodium Chloride 500 ml @ 0 mls/hr QID PRN IV UO< 30cc/hr over previous 6hrs Last administered on 04/24/19at 03:07; Start 04/22/19 at 12:00 Albumin Human 100 ml @ 100 mls/hr TID IV Last administered on 04/24/19at 08:10; Start 04/22/19 at 14:00; Stop 04/24/19 at 09:59; Status DC Daptomycin 720 mg/ Sodium Chloride 50 ml @ 100 mls/hr ONCE ONCE IV Last administered on 04/22/19at 15:06; Start 04/22/19 at 16:00; Stop 04/22/19 at 16:29; Status DC Daptomycin 760 mg/ Sodium Chloride 50 ml @ 100 mls/hr ONCE ONCE IV Last administered on 04/23/19at 13:02; Start 04/23/19 at 13:00; Stop 04/23/19 at 13:29; Status DC Amino Acids/ Glycerin/ Electrolytes 1,000 ml @ 80 mls/hr [id number] IV Last administered on 04/24/19at 06:09; Start 04/23/19 at 14:00 Active Scripts Active Reported No Known Medications Prior To Admisstion (Info) Each 1 Each 1X Vitals/I & O Vital Sign - Last 24 Hours 04/23/19 04/23/19 04/23/19 04/23/19 11:15 11:44 12:00 12:20 Temp 97.9 97.9 Pulse 96 80 Resp 21 B/P (MAP) 124/70 124/64 (84) Pulse Ox 100 100 O2 Delivery Ventilator Mechanical Ventilator Ventilator 04/23/19 04/23/19 04/23/19 04/23/19 13:00 13:01 14:00 15:00 Pulse 95 95 102 Resp 20 21 20 B/P (MAP) 120/66 (84) 127/67 (87) 160/77 (104) Pulse Ox 100 100 100 100 O2 Delivery Ventilator Ventilator Ventilator Ventilator 04/23/19 04/23/19 04/23/19 04/23/19 15:15 15:45 16:00 16:00 Pulse 93 Resp 22 22 B/P (MAP) 95/37 (56) Pulse Ox 100 100 100 O2 Delivery Ventilator Ventilator Ventilator Mechanical Ventilator 04/23/19 04/23/19 04/23/19 04/23/19 16:29 17:00 17:10 18:00 Pulse 99 98 Resp 20 22 23 B/P (MAP) 121/58 (79) 120/68 (85) Pulse Ox 100 100 100 100 O2 Delivery Ventilator Ventilator Ventilator Ventilator 04/23/19 04/23/19 04/23/19 04/23/19 18:17 19:00 20:00 20:00 Temp 102.5 102.5 Pulse 98 98 105 Resp 24 22 B/P (MAP) 120/68 121/62 (81) 133/68 (89) Pulse Ox 100 100 O2 Delivery Ventilator Mechanical Ventilator Ventilator 04/23/19 04/23/19 04/23/19 04/23/19 20:38 21:00 22:00 23:00 Temp 101.8 100.9 100.2 101.8 100.9 100.2 Pulse 94 94 99 Resp 24 22 22 B/P (MAP) 127/67 (87) 137/63 (87) 138/73 (94) Pulse Ox 100 100 99 100 O2 Delivery Ventilator Ventilator Ventilator Ventilator 04/23/19 04/23/19 04/24/19 04/24/19 23:59 23:59 00:15 00:17 Temp 99.1 99.1 Pulse 90 89 Resp 20 20 B/P (MAP) 147/79 (101) 144/74 (97) Pulse Ox 100 100 100 O2 Delivery Mechanical Ventilator Ventilator Ventilator Ventilator 04/24/19 04/24/19 04/24/19 04/24/19 00:30 00:45 01:00 01:15 Temp 98.8 98.8 Pulse 88 85 85 73 Resp 20 20 20 20 B/P (MAP) 153/88 (109) 138/77 (97) 142/73 (96) 140/76 (97) Pulse Ox 100 100 100 100 O2 Delivery Ventilator Ventilator Ventilator Ventilator 04/24/19 04/24/19 04/24/19 04/24/19 01:30 02:00 02:15 02:22 Pulse 84 79 83 Resp 20 20 20 B/P (MAP) 134/66 (88) 133/68 (89) 120/61 (80) Pulse Ox 100 100 100 100 O2 Delivery Ventilator Ventilator Ventilator Ventilator 04/24/19 04/24/19 04/24/19 04/24/19 02:30 03:00 03:36 04:00 Temp 98.0 98.0 Pulse 76 68 62 Resp 20 20 20 20 B/P (MAP) 116/62 (80) 119/70 (86) 121/72 (88) Pulse Ox 100 100 100 100 O2 Delivery Ventilator Ventilator Ventilator Ventilator 04/24/19 04/24/19 04/24/1904/24/19 04:00 05:00 05:13 06:00 Pulse 62 76 Resp 20 20 B/P (MAP) 98/59 (72) 110/61 (77) Pulse Ox 100 100 100 O2 Delivery Mechanical Ventilator Ventilator Ventilator Ventilator 04/24/19 04/24/19 07:32 08:35 Resp 20 Pulse Ox 100 100 O2 Delivery Ventilator Intake and Output 04/23/19 04/23/19 04/24/19 14:59 22:59 06:59 Intake Total 150 ml 915.43 ml 2192 ml Output Total 655 ml 390 ml 210 ml Balance -505 ml 525.43 ml 1982 ml ASHLY SIEGEL MD Apr 24, 2019 11:05
--- NOTE | 2019-04-24 11:38 | PDOC ---
PULMONARY PROGRESS NOTES Subjective on vent, on peep 6, fio2 40%, sedated versed, fentanyl, precedex, small ett secretion, on levo, vaso, no fever Vitals Vital Signs Date Time Temp Pulse Resp B/P (MAP) Pulse Ox O2 Delivery O2 Flow Rate FiO2 04/24/19 11:06 Mechanical Ventilator 04/24/19 08:35 100 04/24/19 07:32 20 04/24/19 06:00 76 110/61 (77) 04/24/19 04:00 98.0 98.0 04/23/19 09:00 98.0 Comments ros as mentioned as above discussed w rn other sys otherwise neg on vent sedated HEENT: Other (nc at perrl nose clear orally intubated neck no lad no thyromegaly) Lungs: Other (deminished) Cardiovascular: S1, S2 Abdomen: Other (distended obese deminished bs) Extremities: Other (edema) Skin: Warm Labs Laboratory Tests Test 04/22/19 12:52 04/22/19 23:22 04/23/19 06:15 04/23/19 08:00 Glucose (Fingerstick) 247 mg/dL (70-99) 256 mg/dL (70-99) 248 mg/dL (70-99) White Blood Count 19.0 x10^3/uL (4.0-11.0) Red Blood Count 4.85 x10^6/uL (3.50-5.40) Hemoglobin 11.0 g/dL (12.0-15.5) Hematocrit 34.9 % (36.0-47.0) Mean Corpuscular Volume 72 fL (79-100) Mean Corpuscular Hemoglobin 23 pg (25-35) Mean Corpuscular Hemoglobin Concent 32 g/dL (31-37) Red Cell Distribution Width 18.6 % (11.5-14.5) Platelet Count 82 x10^3/uL (140-400) Neutrophils (%) (Auto) 88 % (31-73) Lymphocytes (%) (Auto) 7 % (24-48) Monocytes (%) (Auto) 4 % (0-9) Eosinophils (%) (Auto) 1 % (0-3) Basophils (%) (Auto) 0 % (0-3) Neutrophils # (Auto) 16.7 x10^3/uL (1.8-7.7) Lymphocytes # (Auto) 1.4 x10^3/uL (1.0-4.8) Monocytes # (Auto) 0.7 x10^3/uL (0.0-1.1) Eosinophils # (Auto) 0.1 x10^3/uL (0.0-0.7) Basophils # (Auto) 0.0 x10^3/uL (0.0-0.2) Segmented Neutrophils % 75 % (35-66) Band Neutrophils % 16 % (0-9) Lymphocytes % 6 % (24-48) Monocytes % 1 % (0-10) Eosinophils % 2 % (0-5) Platelet Estimate Decreased (ADEQUATE) Platelet Clumps, EDTA Present Large Platelets Giant Platelets Sodium Level 141 mmol/L (136-145) Potassium Level 4.0 mmol/L (3.5-5.1) Chloride Level 105 mmol/L (98-107) Carbon Dioxide Level 20 mmol/L (21-32) Anion Gap 16 (6-14) Blood Urea Nitrogen 52 mg/dL (7-20) Creatinine 1.2 mg/dL (0.6-1.0) Estimated GFR (Cockcroft-Gault) 45.2 BUN/Creatinine Ratio 43 (6-20) Glucose Level 255 mg/dL (70-99) Calcium Level 8.5 mg/dL (8.5-10.1) Total Bilirubin 1.2 mg/dL (0.2-1.0) Aspartate Amino Transf (AST/SGOT) 117 U/L (15-37) Alanine Aminotransferase (ALT/SGPT) 54 U/L (14-59) Alkaline Phosphatase 155 U/L (46-116) Total Protein 5.9 g/dL (6.4-8.2) Albumin 2.2 g/dL (3.4-5.0) Albumin/Globulin Ratio 0.6 (1.0-1.7) O2 Saturation 98 % (92-99) Arterial Blood pH 7.34 (7.35-7.45) Arterial Blood pCO2 at Patient Temp 31 mmHg (35-46) Arterial Blood pO2 at Patient Temp 112 mmHg (65-108) Arterial Blood HCO3 16 mmol/L (21-28) Arterial Blood Base Excess -9 mmol/L (-3-3) Test 04/23/19 11:38 04/23/19 17:52 04/24/19 00:30 04/24/19 06:05 Glucose (Fingerstick) 230 mg/dL (70-99) 267 mg/dL (70-99) 316 mg/dL (70-99) White Blood Count 10.0 x10^3/uL (4.0-11.0) Red Blood Count 4.38 x10^6/uL (3.50-5.40) Hemoglobin 9.9 g/dL (12.0-15.5) Hematocrit 31.6 % (36.0-47.0) Mean Corpuscular Volume 72 fL (79-100) Mean Corpuscular Hemoglobin 23 pg (25-35) Mean Corpuscular Hemoglobin Concent 32 g/dL (31-37) Red Cell Distribution Width 18.8 % (11.5-14.5) Platelet Count 51 x10^3/uL (140-400) Neutrophils (%) (Auto) 85 % (31-73) Lymphocytes (%) (Auto) 10 % (24-48) Monocytes (%) (Auto) 4 % (0-9) Eosinophils (%) (Auto) 0 % (0-3) Basophils (%) (Auto) 0 % (0-3) Neutrophils # (Auto) 8.6 x10^3/uL (1.8-7.7) Lymphocytes # (Auto) 1.0 x10^3/uL (1.0-4.8) Monocytes # (Auto) 0.4 x10^3/uL (0.0-1.1) Eosinophils # (Auto) 0.0 x10^3/uL (0.0-0.7) Basophils # (Auto) 0.0 x10^3/uL (0.0-0.2) Sodium Level 141 mmol/L (136-145) Potassium Level 4.1 mmol/L (3.5-5.1) Chloride Level 106 mmol/L (98-107) Carbon Dioxide Level 22 mmol/L (21-32) Anion Gap 13 (6-14) Blood Urea Nitrogen 53 mg/dL (7-20) Creatinine 1.0 mg/dL (0.6-1.0) Estimated GFR (Cockcroft-Gault) 55.8 BUN/Creatinine Ratio 53 (6-20) Glucose Level 348 mg/dL (70-99) Calcium Level 8.5 mg/dL (8.5-10.1) Total Bilirubin 1.3 mg/dL (0.2-1.0) Aspartate Amino Transf (AST/SGOT) 55 U/L (15-37) Alanine Aminotransferase (ALT/SGPT) 35 U/L (14-59) Alkaline Phosphatase 122 U/L (46-116) Total Protein 5.9 g/dL (6.4-8.2) Albumin 2.5 g/dL (3.4-5.0) Albumin/Globulin Ratio 0.7 (1.0-1.7) Test 04/24/19 06:11 04/24/19 08:35 Glucose (Fingerstick) 326 mg/dL (70-99) O2 Saturation 98 % (92-99) Arterial Blood pH 7.38 (7.35-7.45) Arterial Blood pCO2 at Patient Temp 33 mmHg (35-46) Arterial Blood pO2 at Patient Temp 124 mmHg (65-108) Arterial Blood HCO3 19 mmol/L (21-28) Arterial Blood Base Excess -6 mmol/L (-3-3) FiO2 40 Laboratory Tests Test 04/23/19 11:38 04/23/19 17:52 04/24/19 00:30 04/24/19 06:05 Glucose (Fingerstick) 230 mg/dL (70-99) 267 mg/dL (70-99) 316 mg/dL (70-99) White Blood Count 10.0 x10^3/uL (4.0-11.0) Red Blood Count 4.38 x10^6/uL (3.50-5.40) Hemoglobin 9.9 g/dL (12.0-15.5) Hematocrit 31.6 % (36.0-47.0) Mean Corpuscular Volume 72 fL (79-100) Mean Corpuscular Hemoglobin 23 pg (25-35) Mean Corpuscular Hemoglobin Concent 32 g/dL (31-37) Red Cell Distribution Width 18.8 % (11.5-14.5) Platelet Count 51 x10^3/uL (140-400) Neutrophils (%) (Auto) 85 % (31-73) Lymphocytes (%) (Auto) 10 % (24-48) Monocytes (%) (Auto) 4 % (0-9) Eosinophils (%) (Auto) 0 % (0-3) Basophils (%) (Auto) 0 % (0-3) Neutrophils # (Auto) 8.6 x10^3/uL (1.8-7.7) Lymphocytes # (Auto) 1.0 x10^3/uL (1.0-4.8) Monocytes # (Auto) 0.4 x10^3/uL (0.0-1.1) Eosinophils # (Auto) 0.0 x10^3/uL (0.0-0.7) Basophils # (Auto) 0.0 x10^3/uL (0.0-0.2) Sodium Level 141 mmol/L (136-145) Potassium Level 4.1 mmol/L (3.5-5.1) Chloride Level 106 mmol/L (98-107) Carbon Dioxide Level 22 mmol/L (21-32) Anion Gap 13 (6-14) Blood Urea Nitrogen 53 mg/dL (7-20) Creatinine 1.0 mg/dL (0.6-1.0) Estimated GFR (Cockcroft-Gault) 55.8 BUN/Creatinine Ratio 53 (6-20) Glucose Level 348 mg/dL (70-99) Calcium Level 8.5 mg/dL (8.5-10.1) Total Bilirubin 1.3 mg/dL (0.2-1.0) Aspartate Amino Transf (AST/SGOT) 55 U/L (15-37) Alanine Aminotransferase (ALT/SGPT) 35 U/L (14-59) Alkaline Phosphatase 122 U/L (46-116) Total Protein 5.9 g/dL (6.4-8.2) Albumin 2.5 g/dL (3.4-5.0) Albumin/Globulin Ratio 0.7 (1.0-1.7) Test 04/24/19 06:11 04/24/19 08:35 Glucose (Fingerstick) 326 mg/dL (70-99) O2 Saturation 98 % (92-99) Arterial Blood pH 7.38 (7.35-7.45) Arterial Blood pCO2 at Patient Temp 33 mmHg (35-46) Arterial Blood pO2 at Patient Temp 124 mmHg (65-108) Arterial Blood HCO3 19 mmol/L (21-28) Arterial Blood Base Excess -6 mmol/L (-3-3) FiO2 40 Medications Active Scripts Medications Dose Route/Sig Max Daily Dose Days Date Category No Known Medications Prior To Admisstion (Info) Each 1 Each 1X 04/20/19 Reported Comments cxr reviewed 04/24 Increasing bilateral lower lobe left greater than right atelectasis and/or infiltrate. ett ok Impression . IMPRESSION: 1. Acute hypercapnic respiratory failure secondary to multifactorial etiologies and likely underlying hypovolemic and septic shock. 2. Worsening bilateral infiltrates, likely related to aspiration pneumonia. 3. Acute kidney injury secondary to hypotension and shock. 4. Small bowel obstruction. She has been seen by Surgery and not a surgical candidate. Over 2 liters of fluid came out from her orogastric tube upon insertion. 5. Chronic lymphedema of the lower extremities. 6. Leukocytosis. 7. Moderate protein-calorie malnutrition. 8. fever, improving 9. bacteremia, gram +cocci Plan . 1. Continue vent support, setting reviewed, will dc sedation. not stable for sbt. assess mental status while off sedation 2. Broad-spectrum antibiotic per Infectious Disease recommendations. 3. Follow all cultures. 4. Renal consultation / rec 5. Follow Surgery recommendations. 6. Follow GI recommendations. 7. DVT and stress ulcer prophylaxis. 8. Prognosis appears to be grim. Palliative Care following discussed w TYE Holley MD Apr 24, 2019 11:38
--- NOTE | 2019-04-24 12:43 | CONS ---
DATE OF CONSULTATION: HISTORY OF PRESENT ILLNESS: This patient is a 63-year-old white female, who was being admitted through the Emergency Room into the ICU for acute problems. The patient is on oxygen. She is obese lady. Has hemorrhagic spots on the face and the body and also has a history of low platelet count. Has urinary tract infection. The patient was seen in consultation because of a mass in the abdomen. PHYSICAL EXAMINATION: GENERAL: The patient is quite obese and has an infection in both lower extremities. Edema of feet noted. GENITOURINARY: Unable to do a pelvic exam in the bed because the lower abdomen is covering the entire vaginal area and the patient has a catheter for continuous bladder drainage and could not even visualize the vaginal area on the bed and it is very difficult to do pelvic exam at this time and maybe when the patient is stable, we can try the pelvic exam again. There is no vaginal bleeding noted at this time. IMPRESSION: Postmenopausal syndrome with a pelvic mass. I would be glad to do the exam when the patient is stable and able to do the pelvic exam. TEMO TEJEDA MD DR: ARNOLD/jonnathan JOB#: [id number] / [id number]
--- NOTE | 2019-04-24 15:06 | NUR ---
SS following up with discharge planning. HCFS following for self pay status. Pt remains on the vent at this time. SS will continue to follow for discharge planning.
[2019-04-24] MEDS: VASOPRESSIN 40 UNIT in IV DEXTROSE 5% 100ML 100 ML IV PRN (15:37)
--- NOTE | 2019-04-24 15:41 | PDOC2 ---
PALLIATIVE CARE Palliative Care Note Palliative Care Patient remains on Vent. Sedation. Spoke with Pierre/ today. He is unable to come to the hospital today. Cares for his disabled daughter at home. He feels she is doing better and wants to continue full aggressive care. Full Code. Discussed poor prognosis and likelihood of her getting back home. States he will fill out Medicaid application. Attempted to reach daughter Viry [phone]. Message left to return call. JOSÉ ANTONIO YEUNG Apr 24, 2019 15:40
--- NOTE | 2019-04-24 16:27 | PDOC ---
Renal-Progress Notes Subjective Notes Notes NONE History of Present Illness Hx of present illness SEDATE Vitals Vitals Vital Signs Date Time Temp Pulse Resp B/P (MAP) Pulse Ox O2 Delivery O2 Flow Rate FiO2 04/24/19 15:00 73 20 92/47 (62) 100 Ventilator 04/24/19 04:00 98.0 98.0 04/23/19 09:00 98.0 Weight Weight [ ] I.O. Intake and Output Intake and Output 04/24/19 07:00 Intake Total 3257.43 ml Output Total 1355 ml Balance 1902.43 ml IV Total 3257.43 ml Output Urine Total 1155 ml Gastric Drainage Total 200 ml # Voids 1 Labs Labs Laboratory Tests Test 04/23/19 17:52 04/24/19 00:30 04/24/19 06:05 04/24/19 06:11 Glucose (Fingerstick) 267 mg/dL (70-99) 316 mg/dL (70-99) 326 mg/dL (70-99) White Blood Count 10.0 x10^3/uL (4.0-11.0) Red Blood Count 4.38 x10^6/uL (3.50-5.40) Hemoglobin 9.9 g/dL (12.0-15.5) Hematocrit 31.6 % (36.0-47.0) Mean Corpuscular Volume 72 fL (79-100) Mean Corpuscular Hemoglobin 23 pg (25-35) Mean Corpuscular Hemoglobin Concent 32 g/dL (31-37) Red Cell Distribution Width 18.8 % (11.5-14.5) Platelet Count 51 x10^3/uL (140-400) Neutrophils (%) (Auto) 85 % (31-73) Lymphocytes (%) (Auto) 10 % (24-48) Monocytes (%) (Auto) 4 % (0-9) Eosinophils (%) (Auto) 0 % (0-3) Basophils (%) (Auto) 0 % (0-3) Neutrophils # (Auto) 8.6 x10^3/uL (1.8-7.7) Lymphocytes # (Auto) 1.0 x10^3/uL (1.0-4.8) Monocytes # (Auto) 0.4 x10^3/uL (0.0-1.1) Eosinophils # (Auto) 0.0 x10^3/uL (0.0-0.7) Basophils # (Auto) 0.0 x10^3/uL (0.0-0.2) Sodium Level 141 mmol/L (136-145) Potassium Level 4.1 mmol/L (3.5-5.1) Chloride Level 106 mmol/L (98-107) Carbon Dioxide Level 22 mmol/L (21-32) Anion Gap 13 (6-14) Blood Urea Nitrogen 53 mg/dL (7-20) Creatinine 1.0 mg/dL (0.6-1.0) Estimated GFR (Cockcroft-Gault) 55.8 BUN/Creatinine Ratio 53 (6-20) Glucose Level 348 mg/dL (70-99) Calcium Level 8.5 mg/dL (8.5-10.1) Total Bilirubin 1.3 mg/dL (0.2-1.0) Aspartate Amino Transf (AST/SGOT) 55 U/L (15-37) Alanine Aminotransferase (ALT/SGPT) 35 U/L (14-59) Alkaline Phosphatase 122 U/L (46-116) Total Protein 5.9 g/dL (6.4-8.2) Albumin 2.5 g/dL (3.4-5.0) Albumin/Globulin Ratio 0.7 (1.0-1.7) Test 04/24/19 08:35 04/24/19 12:21 O2 Saturation 98 % (92-99) Arterial Blood pH 7.38 (7.35-7.45) Arterial Blood pCO2 at Patient Temp 33 mmHg (35-46) Arterial Blood pO2 at Patient Temp 124 mmHg (65-108) Arterial Blood HCO3 19 mmol/L (21-28) Arterial Blood Base Excess -6 mmol/L (-3-3) FiO2 40 Glucose (Fingerstick) 342 mg/dL (70-99) Micro Micro Microbiology 04/22/19 - Final, Resulted 04/22/19 - Final, Resulted 04/22/19 - Final, Resulted 04/22/19 - Preliminary, Resulted 04/22/19 - Preliminary, Resulted 04/22/19 - Preliminary, Resulted 04/22/19 Gram Stain Evaluation - Final, Resulted 04/22/19 Sputum Culture, Resulted Pending 04/21/19 Blood Culture - Preliminary, Resulted NO GROWTH AFTER 2 DAYS 04/19/19 Urine Culture - Final, Complete 04/19/19 Urine Culture Result 1 (YODIT) - Final, Complete Review of Systems Constitutional: yes: unresponsive Physical Exam General Appearance: no apparent distress Skin: warm, dry Respiratory: decreased breath sounds Heart: S1S2 Abdomen: soft Genitourinary: bladder flat Extremities: atrophy Neurology: confused Assessment Assessment IMP RADHA-RESOLVED SBO CIRRHOSIS PROB PNEUMONIA PLAN WILL SIGN OFF AGREE WITH PALLIATIVE CARE PRESLEY DORSEY MD Apr 24, 2019 16:27
[2019-04-25] VITALS (23 sets, daily range): BP systolic 95–146; BP diastolic 50–76
[2019-04-25] MEDS: PIPERACILLIN/TAZOBACTAM 3.375 GM in IV NORMAL SALINE 50ML 50 ML IV SCH ×2 (00:07→06:11)
[2019-04-25] MEDS: INSULIN LISPRO 300 UNITS/3 ML VIAL. SQ SCH ×4 (00:09→17:31)
[2019-04-25] MEDS: DEXMEDETOMIDINE 400 MCG in IV NORMAL SALINE 100ML 96 ML IV PRN ×2 (03:45→20:49)
[2019-04-25] MEDS: METOPROLOL TARTRATE 5 MG/5 ML VIAL. IVP SCH ×4 (06:00→18:32)
[2019-04-25] MEDS: AMINO AC 3%/ELECTROLYTE/GLYCER 1,000 ML IV SCH ×2 (06:11→17:28)
[2019-04-25] MEDS: PANTOPRAZOLE IV PUSH 40 MG VIAL. IVP SCH (07:30)
--- NOTE | 2019-04-25 07:46 | PDOC ---
Infectious Disease Note Subjective: Subjective Remains orally intubated/vent Hypotensive, required boluses last night was on albumin yesterday on vasopression low dose UO is decreasing No fevers last 24 hours ROS: ROS Negative otherwise. Vital Signs: Vital Signs Vital Signs Date Time Temp Pulse Resp B/P (MAP) Pulse Ox O2 Delivery O2 Flow Rate FiO2 04/25/19 07:36 100 Ventilator 04/25/19 07:00 70 28 107/57 (74) 04/24/19 23:59 98.8 98.8 Physical Exam: PHYSICAL EXAM GENERAL: Orally intubated, sedated, mitts HEENT: Pupils equal, small. ETT/ OGT with green colored output NECK: Supple. Left EJ LUNGS: Clear. HEART: S1, S2 regular. ABDOMEN: Soft, Umbilical hernia present. Large pannus present. EXTREMITIES: Both lower extremities have venous insufficiency, stasis dermatitis on both the legs posteriorly. Trace edema SKIN: Warm to touch. sacral wound NEUROLOGIC: Sedated on vent RIJ clean Medications: Inpatient Meds: Current Medications Medications (Trade) Dose Ordered Sig/[place] Start Time Stop Time Status Last Admin Dose Admin Acetaminophen (Tylenol Supp) 650 mg PRN Q6HRS PRN 04/21/19 16:45 04/23/19 20:56 650 MG Acetaminophen (Tylenol) 650 mg PRN Q6HRS PRN 04/22/19 00:15 Cancel Albumin Human 100 ml @ 100 mls/hr TID 04/22/19 14:00 04/24/19 09:59 DC 04/24/19 08:10 100 MLS/HR Amino Acids/ Glycerin/ Electrolytes 1,000 ml @ 80 mls/hr [id number] 04/23/19 14:00 04/25/19 06:21 80 MLS/HR Atropine Sulfate (ATROPINE 0.5mg SYRINGE) 0.5 mg PRN Q5MIN PRN 04/20/19 23:30 Ceftriaxone Sodium (Rocephin) 1 gm 1X ONCE 04/19/19 18:45 04/19/19 18:46 DC 04/19/19 19:17 1 GM Daptomycin 720 mg/ Sodium Chloride 50 ml @ 100 mls/hr ONCE ONCE 04/22/19 16:00 04/22/19 16:29 DC 04/22/19 15:06 100 MLS/HR Daptomycin 760 mg/ Sodium Chloride 50 ml @ 100 mls/hr ONCE ONCE 04/23/19 13:00 04/23/19 13:29 DC 04/23/19 13:02 100 MLS/HR Dexmedetomidine HCl 400 mcg/ Sodium Chloride 100 ml @ 0 mls/hr CONT PRN 04/20/19 23:30 04/25/19 03:52 5.7 MLS/HR Dextrose 250 ml PRN Q15MIN PRN 04/19/19 19:30 Dextrose (Dextrose 50%-Water Syringe) 12.5 gm PRN Q15MIN PRN 04/19/19 19:30 Enoxaparin Sodium (Lovenox 60mg Syringe) 60 mg Q12HR 04/21/19 21:00 04/22/19 15:40 DC 04/21/19 20:45 60 MG Epinephrine HCl 4 mg/Sodium Chloride 254 ml @ 42.935 mls/ hr CONT PRN 04/21/19 05:00 Fentanyl Citrate 30 ml @ 0 mls/hr CONT PRN PRN 04/20/19 17:15 04/24/19 21:16 1.25 MLS/HR Insulin Human Lispro (HumaLOG) 0-7 UNITS Q6HRS 04/21/19 12:00 04/25/19 06:21 6 UNITS Lactic Acid (Lac-Hydrin) 1 gauri BID 04/20/19 21:00 04/24/19 21:16 1 GAURI Lidocaine HCl (Xylocaine 2% Topical 5gm Tube) 5 gauri STK-MED ONCE 04/19/19 12:00 04/21/19 10:21 DC Lorazepam (Ativan Inj) 1 mg PRN 1X ONCE 04/20/19 16:15 04/20/19 16:16 DC Metoprolol Tartrate (Lopressor Vial) 2.5 mg Q6HRS 04/20/19 14:30 04/20/19 14:28 2.5 MG Metoprolol Tartrate (Lopressor) 25 mg BID 04/20/19 14:00 04/20/19 13:34 DC Midazolam HCl 100 ml @ 5 mls/hr CONT PRN 04/20/19 17:15 04/24/19 03:54 5 MLS/HR Midazolam HCl (Versed) 5 mg 1X ONCE 04/20/19 17:15 04/20/19 17:19 DC 04/20/19 17:38 5 MG Naloxone HCl (Narcan) 0.4 mg PRN Q2MIN PRN 04/20/19 17:15 Norepinephrine Bitartrate 250 ml @ 21.129 mls/ hr CONT PRN 04/20/19 17:30 UNV Ondansetron HCl (Zofran) 4 mg PRN Q6HRS PRN 04/20/19 10:00 04/20/19 16:04 4 MG Pantoprazole Sodium (PROTONIX VIAL for IV PUSH) 40 mg DAILYAC 04/20/19 12:30 04/24/19 08:10 40 MG Piperacillin Sod/ Tazobactam Sod 3.375 gm/Sodium Chloride 50 ml @ 100 mls/hr Q6HRS 04/20/19 18:00 04/25/19 06:21 100 MLS/HR Potassium Chloride/Water 100 ml @ 100 mls/hr Q1H 04/20/19 12:00 04/20/19 15:59 DC 04/21/19 07:22 100 MLS/HR Potassium Chloride (Klor-Con) 40 meq 1X ONCE 04/20/19 11:30 04/20/19 11:31 Cancel Propofol 100 ml @ 1.69 mls/hr CONT PRN 04/20/19 17:15 04/20/19 17:36 6.761 MLS/HR Rocuronium Diana (Zemuron) 50 mg STK-MED ONCE 04/20/19 18:00 04/21/19 09:09 DC Sodium Chloride 500 ml @ 0 mls/hr QID PRN 04/22/19 12:00 04/24/19 03:07 500 MLS/HR Succinylcholine Chloride (Anectine) 80 mg 1X ONCE 04/20/19 17:30 04/20/19 17:31 DC 04/20/19 17:36 80 MG Vancomycin HCl (Vanco Per Pharmacy) 1 each PRN DAILY PRN 04/19/19 19:15 04/21/19 09:40 DC 04/20/19 14:29 1 EACH Vancomycin HCl (Vancomycin Trough Level) 1 each 1X ONCE 04/21/19 07:30 04/21/19 07:31 DC 04/21/19 10:49 1 EACH Vancomycin HCl 1.5 gm/Sodium Chloride 500 ml @ 250 mls/hr Q12H 04/20/19 08:00 04/21/19 09:40 DC 04/20/19 20:04 250 MLS/HR Vancomycin HCl 2 gm/Sodium Chloride 500 ml @ 250 mls/hr 1X ONCE 04/19/19 19:15 04/19/19 21:14 DC 04/19/19 20:01 250 MLS/HR Vasopressin 40 unit/Dextrose 102 ml @ 6 mls/hr CONT PRN 04/21/19 04:00 04/24/19 15:38 6 MLS/HR Labs: Lab Laboratory Tests Test 04/24/19 08:35 04/24/19 12:21 04/24/19 17:03 04/25/19 00:04 O2 Saturation 98 % (92-99) Arterial Blood pH 7.38 (7.35-7.45) Arterial Blood pCO2 at Patient Temp 33 mmHg (35-46) Arterial Blood pO2 at Patient Temp 124 mmHg (65-108) Arterial Blood HCO3 19 mmol/L (21-28) Arterial Blood Base Excess -6 mmol/L (-3-3) FiO2 40 Glucose (Fingerstick) 342 mg/dL (70-99) 305 mg/dL (70-99) 315 mg/dL (70-99) Test 04/25/19 06:16 Glucose (Fingerstick) 298 mg/dL (70-99) Micro RUN DATE: 04/23/19 PAGE 1 RUN TIME: 1510 [facility] [address] [place] [address] Jae Wright M.D., [employer] PATIENT: XENA LEE ACCT: [id number] LOC: 1 [facility] ICU U: [id number] AGE/SX: 63/F ROOM: 115 RE04/19/[address]: ASHLY SIEGEL MD : 1955 BED: 1 DIS: STATUS: ADM IN TLOC: -- SPEC #: [id number] WEST: 04/19/19 STATUS: COMP REQ #: [id number] RECD: 04/19/[address] [facility] [address]: BENJIE DE LOS SANTOS MD SOURCE: BLOOD ENTR: 04/20/[address] [facility] [address]: GEOVANNA LUEVANO [facility]: ORDERED: BLD CULT - LC Procedure Result BLOOD CULTURE LC Final Preliminary report Final report BLD CULT RESULT 1 Final Comment Staphylococcus species Performed at: DA - [facility] [address], [place], [place] [id number] Automatic Engraver: BHARGAVI Smart MD, Phone: [phone] Staphylococcus epidermidis Based on susceptibility to oxacillin this isolate would be susceptible to: *Penicillinase-stable penicillins, such as: Cloxacillin, Dicloxacillin, Nafcillin *Beta-lactam combination agents, such as: Amoxicillin-clavulanic acid, Ampicillin-sulbactam, Piperacillin-tazobactam *Oral cephems, such as: Cefaclor, Cefdinir, Cefpodoxime, Cefprozil, Cefuroxime, Cephalexin, Loracarbef *Parenteral cephems, such as: Cefazolin, Cefepime, Cefotaxime, Cefotetan, Ceftaroline, Ceftizoxime, Ceftriaxone, Cefuroxime *Carbapenems, such as: Doripenem, Ertapenem, Imipenem, Meropenem ANTIMICROBIAL SUSCEPTIBILITY Final Comment S = Susceptible; I = Intermediate; R = Resistant P = Positive; N = Negative MICS are expressed in micrograms per mL Antibiotic RSLT#1 RSLT#2 RSLT#3 RSLT#4 Ciprofloxacin S<=0.5 Clindamycin S<=0.25 Erythromycin R>=8 Gentamicin S<=0.5 CONTINUED ON NEXT PAGE RUN DATE: 04/23/19 PAGE 2 RUN TIME: 1510 [facility] [address] [place] [address] Jae Wright M.D., [employer] SPEC: [id number] PATIENT: XENA LEE Faustino [id number] (Continued) Procedure Result ----- ------- ANTIMICROBIAL SUSCEPTIBILITY Final (continued) Levofloxacin S<=0.12 Linezolid S =1 Nitrofurantoin S<=16 Oxacillin S<=0.25 Penicillin R>=0.5 Quinupristin/Dalfopristin S<=0.25 Rifampin S<=0.5 Tetracycline S<=1 Trimethoprim/Sulfa S<=10 Vancomycin S =1 Performed at: DA - [facility] [address], [place], [place] [id number] Automatic Engraver: BHARGAVI Smart MD, Phone: [phone] Objective: Assessment: MSSA Bacteremia 04/19 08/17 BOTTLES Sepsis with fever - better. Leukocytosis - better Acute resp failure multifactorial, Pneumonia ,likely aspiration Lactic acidosis. Urinary tract infection versus hematuria. UC no growth Poor personal hygiene. Sacral decubitus. venous stasis with weeping lesions ble Status post fall. Abdominal pain. Large pelvic mass Transaminitis Chronic liver disease Dilated gallbladder with gallbladder sludge and wall thickening, Small upper abdominal ascites. Splenomegaly. Thrombocytopenia Plan: Plan of Care DC Zosyn due to thrombocytopenia start merrem for now S/P Dapto 04/23 F/u BC 04/21 ; neg so far Supportive care Overall prognosis very poor Palliative on case d/w Nursing staff CARLITOS VILLASEÑOR MD Apr 25, 2019 07:46
[2019-04-25] MEDS: AMMONIUM LACTATE 12% TOPICAL LOTION 226GM BOTTLE. TP SCH ×2 (09:00→20:49)
--- NOTE | 2019-04-25 09:05 | RAD ---
Examination: PORTABLE CHEST 1V History: Intubated Comparison/Correlation: 04/24/2019 portable chest x-ray exam Findings: Portable semiupright frontal view of the chest was obtained. Endotracheal tube terminates 1.5 cm from the juan. Right internal jugular catheter joint overlying the right atrium. Enteric tube is in place. No pneumothorax. Pulmonary vasculature congestion is present. Small bilateral pleural effusions are present. Retrocardiac consolidation noted. Small pleural effusions are present. Impression: Small pleural effusions and pulmonary vasculature congestion. Retrocardiac consolidation. No significant changes considering differences in patient positioning. Electronically signed by: Hussain De León MD (04/25/2019 9:02 AM) [facility]
[2019-04-25 09:36] LABS: BASE EXCESS ABG -4 mmol/L (-3-3); HCO3 ABG 19 mmol/L (21-28); PCO2 ABG 27 mmHg (35-46); PO2 ABG 104 mmHg (65-108); SAT O2 ABG 98 % (92-99)
--- NOTE | 2019-04-25 09:40 | PDOC ---
Objective: Objective: Reviewed w/ nurse - still on one pressor, Versed decreased yesterday and will move arms, no stools, minimal bilious output from NG. Reviewed PC note - wants to continue full aggressive care. Vital Signs: Vital Signs Date Time Temp Pulse Resp B/P (MAP) Pulse Ox O2 Delivery O2 Flow Rate FiO2 04/25/19 07:36 100 Ventilator 04/25/19 07:00 70 28 107/57 (74) 04/24/19 23:59 98.8 98.8 Labs: Laboratory Tests Test 04/24/19 12:21 04/24/19 17:03 04/25/19 00:04 04/25/19 06:16 Glucose (Fingerstick) 342 mg/dL 305 mg/dL 315 mg/dL 298 mg/dL GRAM STAIN WHITE BLOOD CELLS Final None GRAM STAIN EPITHELIAL CELLS Final None GRAM STAIN RESULT 1 Final No organisms seen GRAM STAIN RESULT 2 Preliminary Test not performed GRAM STAIN RESULT 3 Preliminary Test not performed GRAM STAIN RESULT 4 Preliminary Test not performed GRAM STAIN EVALUATION Final Comment This specimen is of good quality and is acceptable for routine bacterial culture. Performed at: - [facility] [address], [place], [place] [id number] Bricklayer Tender: BHARGAVI Smart MD, Phone: [phone] SPUTUM CULTURE-LC PENDING Imaging: CXR 04/25 Impression: Small pleural effusions and pulmonary vasculature congestion. Retrocardiac consolidation. No significant changes considering differences in patient positioning. PE: GEN: ill LUNGS: vent ABD: quiet, large, umbilical hernia NEURO/PSYCH:does not awaken for exam A/P: Umbilical hernia w/ SBO - prohibitive surgical candidate MSSA bacteremia, resp failure, hypotension Left adnexal mass, lymphadenopathy Cirrhosis w/ portal hypertension - Hepatitis panel neg, ?ALFRED Anemia w/ iron deficiency, thrombocytopenia, coagulopathy - on PPI -- Labs pending today. Other per Dr. Helm. DESHAWN SALEH Apr 25, 2019 09:40
[2019-04-25 09:49] LABS: FIO2 ABG 40
[2019-04-25 09:51] LABS: BASO # 0.1 x10^3/uL (0.0-0.2); BASO % 1 % (0-3); EOS % 0 % (0-3); HEMATOCRIT 31.8 % (36.0-47.0); HEMOGLOBIN 10.1 g/dL (12.0-15.5); LYMPH # 0.8 x10^3/uL (1.0-4.8); LYMPH % 8 % (24-48); MEAN CORPUSCULAR HEMOGLOBIN 22 pg (25-35); MEAN CORPUSCULAR HGB CONC 32 g/dL (31-37); MEAN CORPUSCULAR VOLUME 71 fL (79-100); MONO # 0.4 x10^3/uL (0.0-1.1); MONO % 3 % (0-9); NEUT # 9.9 x10^3/uL (1.8-7.7); NEUT % 88 % (31-73); PLATELET COUNT 54 x10^3/uL (140-400); RED BLOOD COUNT 4.49 x10^6/uL (3.50-5.40); RED CELL DISTRIBUTION WIDTH 18.7 % (11.5-14.5); WHITE BLOOD COUNT 11.2 x10^3/uL (4.0-11.0)
[2019-04-25 10:15] LABS: ALBUMIN 2.4 g/dL (3.4-5.0); ALBUMIN/GLOBULIN RATIO 0.7 (1.0-1.7); CALCIUM 8.4 mg/dL (8.5-10.1); CREATININE 0.8 mg/dL (0.6-1.0); GFR 72.2; POTASSIUM 4.2 mmol/L (3.5-5.1); TOTAL BILIRUBIN 1.3 mg/dL (0.2-1.0); TOTAL PROTEIN 5.7 g/dL (6.4-8.2)
--- NOTE | 2019-04-25 10:25 | PDOC ---
NATE FREEMAN BARREL FILLER 04/25/19 1025: SURGICAL PROGRESS NOTE Subjective vent Vital Signs Vital Signs Date Time Temp Pulse Resp B/P (MAP) Pulse Ox O2 Delivery O2 Flow Rate FiO2 04/25/19 09:32 100 Ventilator 04/25/19 07:00 70 28 107/57 (74) 04/24/19 23:59 98.8 98.8 I&O Intake and Output 04/25/19 07:00 Intake Total 3116 ml Output Total 1110 ml Balance 2006 ml IV Total 3116 ml Output Urine Total 1110 ml General: No acute distress Abdomen: Soft, Other (hernia present, unable to reduce) Labs Laboratory Tests Test 04/23/19 11:38 04/23/19 17:52 04/24/19 00:30 04/24/19 06:05 Glucose (Fingerstick) 230 mg/dL (70-99) 267 mg/dL (70-99) 316 mg/dL (70-99) White Blood Count 10.0 x10^3/uL (4.0-11.0) Red Blood Count 4.38 x10^6/uL (3.50-5.40) Hemoglobin 9.9 g/dL (12.0-15.5) Hematocrit 31.6 % (36.0-47.0) Mean Corpuscular Volume 72 fL (79-100) Mean Corpuscular Hemoglobin 23 pg (25-35) Mean Corpuscular Hemoglobin Concent 32 g/dL (31-37) Red Cell Distribution Width 18.8 % (11.5-14.5) Platelet Count 51 x10^3/uL (140-400) Neutrophils (%) (Auto) 85 % (31-73) Lymphocytes (%) (Auto) 10 % (24-48) Monocytes (%) (Auto) 4 % (0-9) Eosinophils (%) (Auto) 0 % (0-3) Basophils (%) (Auto) 0 % (0-3) Neutrophils # (Auto) 8.6 x10^3/uL (1.8-7.7) Lymphocytes # (Auto) 1.0 x10^3/uL (1.0-4.8) Monocytes # (Auto) 0.4 x10^3/uL (0.0-1.1) Eosinophils # (Auto) 0.0 x10^3/uL (0.0-0.7) Basophils # (Auto) 0.0 x10^3/uL (0.0-0.2) Sodium Level 141 mmol/L (136-145) Potassium Level 4.1 mmol/L (3.5-5.1) Chloride Level 106 mmol/L (98-107) Carbon Dioxide Level 22 mmol/L (21-32) Anion Gap 13 (6-14) Blood Urea Nitrogen 53 mg/dL (7-20) Creatinine 1.0 mg/dL (0.6-1.0) Estimated GFR (Cockcroft-Gault) 55.8 BUN/Creatinine Ratio 53 (6-20) Glucose Level 348 mg/dL (70-99) Calcium Level 8.5 mg/dL (8.5-10.1) Total Bilirubin 1.3 mg/dL (0.2-1.0) Aspartate Amino Transf (AST/SGOT) 55 U/L (15-37) Alanine Aminotransferase (ALT/SGPT) 35 U/L (14-59) Alkaline Phosphatase 122 U/L (46-116) Total Protein 5.9 g/dL (6.4-8.2) Albumin 2.5 g/dL (3.4-5.0) Albumin/Globulin Ratio 0.7 (1.0-1.7) Test 04/24/19 06:11 04/24/19 08:35 04/24/19 12:21 04/24/19 17:03 Glucose (Fingerstick) 326 mg/dL (70-99) 342 mg/dL (70-99) 305 mg/dL (70-99) O2 Saturation 98 % (92-99) Arterial Blood pH 7.38 (7.35-7.45) Arterial Blood pCO2 at Patient Temp 33 mmHg (35-46) Arterial Blood pO2 at Patient Temp 124 mmHg (65-108) Arterial Blood HCO3 19 mmol/L (21-28) Arterial Blood Base Excess -6 mmol/L (-3-3) FiO2 40 Test 04/25/19 00:04 04/25/19 06:16 04/25/19 09:25 04/25/19 09:30 Glucose (Fingerstick) 315 mg/dL (70-99) 298 mg/dL (70-99) O2 Saturation 98 % (92-99) Arterial Blood pH 7.46 (7.35-7.45) Arterial Blood pCO2 at Patient Temp 27 mmHg (35-46) Arterial Blood pO2 at Patient Temp 104 mmHg (65-108) Arterial Blood HCO3 19 mmol/L (21-28) Arterial Blood Base Excess -4 mmol/L (-3-3) FiO2 40 White Blood Count 11.2 x10^3/uL (4.0-11.0) Red Blood Count 4.49 x10^6/uL (3.50-5.40) Hemoglobin 10.1 g/dL (12.0-15.5) Hematocrit 31.8 % (36.0-47.0) Mean Corpuscular Volume 71 fL (79-100) Mean Corpuscular Hemoglobin 22 pg (25-35) Mean Corpuscular Hemoglobin Concent 32 g/dL (31-37) Red Cell Distribution Width 18.7 % (11.5-14.5) Platelet Count 54 x10^3/uL (140-400) Neutrophils (%) (Auto) 88 % (31-73) Lymphocytes (%) (Auto) 8 % (24-48) Monocytes (%) (Auto) 3 % (0-9) Eosinophils (%) (Auto) 0 % (0-3) Basophils (%) (Auto) 1 % (0-3) Neutrophils # (Auto) 9.9 x10^3/uL (1.8-7.7) Lymphocytes # (Auto) 0.8 x10^3/uL (1.0-4.8) Monocytes # (Auto) 0.4 x10^3/uL (0.0-1.1) Eosinophils # (Auto) 0.0 x10^3/uL (0.0-0.7) Basophils # (Auto) 0.1 x10^3/uL (0.0-0.2) Sodium Level 142 mmol/L (136-145) Potassium Level 4.2 mmol/L (3.5-5.1) Chloride Level 107 mmol/L (98-107) Carbon Dioxide Level 23 mmol/L (21-32) Anion Gap 12 (6-14) Blood Urea Nitrogen 54 mg/dL (7-20) Creatinine 0.8 mg/dL (0.6-1.0) Estimated GFR (Cockcroft-Gault) 72.2 BUN/Creatinine Ratio 68 (6-20) Glucose Level 331 mg/dL (70-99) Calcium Level 8.4 mg/dL (8.5-10.1) Total Bilirubin 1.3 mg/dL (0.2-1.0) Aspartate Amino Transf (AST/SGOT) 44 U/L (15-37) Alanine Aminotransferase (ALT/SGPT) 28 U/L (14-59) Alkaline Phosphatase 134 U/L (46-116) Total Protein 5.7 g/dL (6.4-8.2) Albumin 2.4 g/dL (3.4-5.0) Albumin/Globulin Ratio 0.7 (1.0-1.7) Laboratory Tests Test 04/24/19 12:21 04/24/19 17:03 04/25/19 00:04 04/25/19 06:16 Glucose (Fingerstick) 342 mg/dL (70-99) 305 mg/dL (70-99) 315 mg/dL (70-99) 298 mg/dL (70-99) Test 04/25/19 09:25 04/25/19 09:30 O2 Saturation 98 % (92-99) Arterial Blood pH 7.46 (7.35-7.45) Arterial Blood pCO2 at Patient Temp 27 mmHg (35-46) Arterial Blood pO2 at Patient Temp 104 mmHg (65-108) Arterial Blood HCO3 19 mmol/L (21-28) Arterial Blood Base Excess -4 mmol/L (-3-3) FiO2 40 White Blood Count 11.2 x10^3/uL (4.0-11.0) Red Blood Count 4.49 x10^6/uL (3.50-5.40) Hemoglobin 10.1 g/dL (12.0-15.5) Hematocrit 31.8 % (36.0-47.0) Mean Corpuscular Volume 71 fL (79-100) Mean Corpuscular Hemoglobin 22 pg (25-35) Mean Corpuscular Hemoglobin Concent 32 g/dL (31-37) Red Cell Distribution Width 18.7 % (11.5-14.5) Platelet Count 54 x10^3/uL (140-400) Neutrophils (%) (Auto) 88 % (31-73) Lymphocytes (%) (Auto) 8 % (24-48) Monocytes (%) (Auto) 3 % (0-9) Eosinophils (%) (Auto) 0 % (0-3) Basophils (%) (Auto) 1 % (0-3) Neutrophils # (Auto) 9.9 x10^3/uL (1.8-7.7) Lymphocytes # (Auto) 0.8 x10^3/uL (1.0-4.8) Monocytes # (Auto) 0.4 x10^3/uL (0.0-1.1) Eosinophils # (Auto) 0.0 x10^3/uL (0.0-0.7) Basophils # (Auto) 0.1 x10^3/uL (0.0-0.2) Sodium Level 142 mmol/L (136-145) Potassium Level 4.2 mmol/L (3.5-5.1) Chloride Level 107 mmol/L (98-107) Carbon Dioxide Level 23 mmol/L (21-32) Anion Gap 12 (6-14) Blood Urea Nitrogen 54 mg/dL (7-20) Creatinine 0.8 mg/dL (0.6-1.0) Estimated GFR (Cockcroft-Gault) 72.2 BUN/Creatinine Ratio 68 (6-20) Glucose Level 331 mg/dL (70-99) Calcium Level 8.4 mg/dL (8.5-10.1) Total Bilirubin 1.3 mg/dL (0.2-1.0) Aspartate Amino Transf (AST/SGOT) 44 U/L (15-37) Alanine Aminotransferase (ALT/SGPT) 28 U/L (14-59) Alkaline Phosphatase 134 U/L (46-116) Total Protein 5.7 g/dL (6.4-8.2) Albumin 2.4 g/dL (3.4-5.0) Albumin/Globulin Ratio 0.7 (1.0-1.7) Problem List Problems Medical Problems: (1) Diabetes Status: Acute (2) Fall Status: Acute (3) Severe sepsis Status: Acute (4) UTI (urinary tract infection) Status: Acute (5) Weakness Status: Acute Assessment/Plan ng output less hernia present, unable to reduce supportive measures NATE SHORT MD 04/25/19 1029: SURGICAL PROGRESS NOTE Assessment/Plan Pt seen and examined. Agree with Ms. Freeman's note Pt stable cont supportive care prohibitive surgical candidate NATE FREEMAN APRN Apr 25, 2019 10:25 NATE SHORT MD Apr 25, 2019 15:19
[2019-04-25] MEDS ORDERED: SODIUM BICARB ADULT 8.4% 50 MEQ/50 ML DISP.SYRIN. IV ONE (10:45)
--- NOTE | 2019-04-25 11:01 | PDOC ---
PULMONARY PROGRESS NOTES Subjective on vent, on peep 6, fio2 40%, off versed, on fentanyl, precedex, off levo, v over breathing vent Vitals Vital Signs Date Time Temp Pulse Resp B/P (MAP) Pulse Ox O2 Delivery O2 Flow Rate FiO2 04/25/19 10:00 84 28 102/58 (73) 100 Ventilator 04/25/19 08:00 99.9 99.9 Comments ros as mentioned as above discussed w rn other sys otherwise neg on vent sedated Lungs: Other (deminished) Cardiovascular: S1, S2 Abdomen: Other (distended obese deminished bs) Extremities: Other (lymphedema) Skin: Warm Labs Laboratory Tests Test 04/23/19 11:38 04/23/19 17:52 04/24/19 00:30 04/24/19 06:05 Glucose (Fingerstick) 230 mg/dL (70-99) 267 mg/dL (70-99) 316 mg/dL (70-99) White Blood Count 10.0 x10^3/uL (4.0-11.0) Red Blood Count 4.38 x10^6/uL (3.50-5.40) Hemoglobin 9.9 g/dL (12.0-15.5) Hematocrit 31.6 % (36.0-47.0) Mean Corpuscular Volume 72 fL (79-100) Mean Corpuscular Hemoglobin 23 pg (25-35) Mean Corpuscular Hemoglobin Concent 32 g/dL (31-37) Red Cell Distribution Width 18.8 % (11.5-14.5) Platelet Count 51 x10^3/uL (140-400) Neutrophils (%) (Auto) 85 % (31-73) Lymphocytes (%) (Auto) 10 % (24-48) Monocytes (%) (Auto) 4 % (0-9) Eosinophils (%) (Auto) 0 % (0-3) Basophils (%) (Auto) 0 % (0-3) Neutrophils # (Auto) 8.6 x10^3/uL (1.8-7.7) Lymphocytes # (Auto) 1.0 x10^3/uL (1.0-4.8) Monocytes # (Auto) 0.4 x10^3/uL (0.0-1.1) Eosinophils # (Auto) 0.0 x10^3/uL (0.0-0.7) Basophils # (Auto) 0.0 x10^3/uL (0.0-0.2) Sodium Level 141 mmol/L (136-145) Potassium Level 4.1 mmol/L (3.5-5.1) Chloride Level 106 mmol/L (98-107) Carbon Dioxide Level 22 mmol/L (21-32) Anion Gap 13 (6-14) Blood Urea Nitrogen 53 mg/dL (7-20) Creatinine 1.0 mg/dL (0.6-1.0) Estimated GFR (Cockcroft-Gault) 55.8 BUN/Creatinine Ratio 53 (6-20) Glucose Level 348 mg/dL (70-99) Calcium Level 8.5 mg/dL (8.5-10.1) Total Bilirubin 1.3 mg/dL (0.2-1.0) Aspartate Amino Transf (AST/SGOT) 55 U/L (15-37) Alanine Aminotransferase (ALT/SGPT) 35 U/L (14-59) Alkaline Phosphatase 122 U/L (46-116) Total Protein 5.9 g/dL (6.4-8.2) Albumin 2.5 g/dL (3.4-5.0) Albumin/Globulin Ratio 0.7 (1.0-1.7) Test 04/24/19 06:11 04/24/19 08:35 04/24/19 12:21 04/24/19 17:03 Glucose (Fingerstick) 326 mg/dL (70-99) 342 mg/dL (70-99) 305 mg/dL (70-99) O2 Saturation 98 % (92-99) Arterial Blood pH 7.38 (7.35-7.45) Arterial Blood pCO2 at Patient Temp 33 mmHg (35-46) Arterial Blood pO2 at Patient Temp 124 mmHg (65-108) Arterial Blood HCO3 19 mmol/L (21-28) Arterial Blood Base Excess -6 mmol/L (-3-3) FiO2 40 Test 04/25/19 00:04 04/25/19 06:16 04/25/19 09:25 04/25/19 09:30 Glucose (Fingerstick) 315 mg/dL (70-99) 298 mg/dL (70-99) O2 Saturation 98 % (92-99) Arterial Blood pH 7.46 (7.35-7.45) Arterial Blood pCO2 at Patient Temp 27 mmHg (35-46) Arterial Blood pO2 at Patient Temp 104 mmHg (65-108) Arterial Blood HCO3 19 mmol/L (21-28) Arterial Blood Base Excess -4 mmol/L (-3-3) FiO2 40 White Blood Count 11.2 x10^3/uL (4.0-11.0) Red Blood Count 4.49 x10^6/uL (3.50-5.40) Hemoglobin 10.1 g/dL (12.0-15.5) Hematocrit 31.8 % (36.0-47.0) Mean Corpuscular Volume 71 fL (79-100) Mean Corpuscular Hemoglobin 22 pg (25-35) Mean Corpuscular Hemoglobin Concent 32 g/dL (31-37) Red Cell Distribution Width 18.7 % (11.5-14.5) Platelet Count 54 x10^3/uL (140-400) Neutrophils (%) (Auto) 88 % (31-73) Lymphocytes (%) (Auto) 8 % (24-48) Monocytes (%) (Auto) 3 % (0-9) Eosinophils (%) (Auto) 0 % (0-3) Basophils (%) (Auto) 1 % (0-3) Neutrophils # (Auto) 9.9 x10^3/uL (1.8-7.7) Lymphocytes # (Auto) 0.8 x10^3/uL (1.0-4.8) Monocytes # (Auto) 0.4 x10^3/uL (0.0-1.1) Eosinophils # (Auto) 0.0 x10^3/uL (0.0-0.7) Basophils # (Auto) 0.1 x10^3/uL (0.0-0.2) Sodium Level 142 mmol/L (136-145) Potassium Level 4.2 mmol/L (3.5-5.1) Chloride Level 107 mmol/L (98-107) Carbon Dioxide Level 23 mmol/L (21-32) Anion Gap 12 (6-14) Blood Urea Nitrogen 54 mg/dL (7-20) Creatinine 0.8 mg/dL (0.6-1.0) Estimated GFR (Cockcroft-Gault) 72.2 BUN/Creatinine Ratio 68 (6-20) Glucose Level 331 mg/dL (70-99) Calcium Level 8.4 mg/dL (8.5-10.1) Total Bilirubin 1.3 mg/dL (0.2-1.0) Aspartate Amino Transf (AST/SGOT) 44 U/L (15-37) Alanine Aminotransferase (ALT/SGPT) 28 U/L (14-59) Alkaline Phosphatase 134 U/L (46-116) Total Protein 5.7 g/dL (6.4-8.2) Albumin 2.4 g/dL (3.4-5.0) Albumin/Globulin Ratio 0.7 (1.0-1.7) Laboratory Tests Test 04/24/19 12:21 04/24/19 17:03 04/25/19 00:04 04/25/19 06:16 Glucose (Fingerstick) 342 mg/dL (70-99) 305 mg/dL (70-99) 315 mg/dL (70-99) 298 mg/dL (70-99) Test 04/25/19 09:25 04/25/19 09:30 O2 Saturation 98 % (92-99) Arterial Blood pH 7.46 (7.35-7.45) Arterial Blood pCO2 at Patient Temp 27 mmHg (35-46) Arterial Blood pO2 at Patient Temp 104 mmHg (65-108) Arterial Blood HCO3 19 mmol/L (21-28) Arterial Blood Base Excess -4 mmol/L (-3-3) FiO2 40 White Blood Count 11.2 x10^3/uL (4.0-11.0) Red Blood Count 4.49 x10^6/uL (3.50-5.40) Hemoglobin 10.1 g/dL (12.0-15.5) Hematocrit 31.8 % (36.0-47.0) Mean Corpuscular Volume 71 fL (79-100) Mean Corpuscular Hemoglobin 22 pg (25-35) Mean Corpuscular Hemoglobin Concent 32 g/dL (31-37) Red Cell Distribution Width 18.7 % (11.5-14.5) Platelet Count 54 x10^3/uL (140-400) Neutrophils (%) (Auto) 88 % (31-73) Lymphocytes (%) (Auto) 8 % (24-48) Monocytes (%) (Auto) 3 % (0-9) Eosinophils (%) (Auto) 0 % (0-3) Basophils (%) (Auto) 1 % (0-3) Neutrophils # (Auto) 9.9 x10^3/uL (1.8-7.7) Lymphocytes # (Auto) 0.8 x10^3/uL (1.0-4.8) Monocytes # (Auto) 0.4 x10^3/uL (0.0-1.1) Eosinophils # (Auto) 0.0 x10^3/uL (0.0-0.7) Basophils # (Auto) 0.1 x10^3/uL (0.0-0.2) Sodium Level 142 mmol/L (136-145) Potassium Level 4.2 mmol/L (3.5-5.1) Chloride Level 107 mmol/L (98-107) Carbon Dioxide Level 23 mmol/L (21-32) Anion Gap 12 (6-14) Blood Urea Nitrogen 54 mg/dL (7-20) Creatinine 0.8 mg/dL (0.6-1.0) Estimated GFR (Cockcroft-Gault) 72.2 BUN/Creatinine Ratio 68 (6-20) Glucose Level 331 mg/dL (70-99) Calcium Level 8.4 mg/dL (8.5-10.1) Total Bilirubin 1.3 mg/dL (0.2-1.0) Aspartate Amino Transf (AST/SGOT) 44 U/L (15-37) Alanine Aminotransferase (ALT/SGPT) 28 U/L (14-59) Alkaline Phosphatase 134 U/L (46-116) Total Protein 5.7 g/dL (6.4-8.2) Albumin 2.4 g/dL (3.4-5.0) Albumin/Globulin Ratio 0.7 (1.0-1.7) Medications Active Scripts Medications Dose Route/Sig Max Daily Dose Days Date Category No Known Medications Prior To Admisstion (Info) Each 1 Each 1X 04/20/19 Reported Comments cxr reviewed 04/25 bilateral lower lobe left greater than right atelectasis and/or infiltrate. ett ok Impression . IMPRESSION: 1. Acute hypercapnic respiratory failure secondary to multifactorial etiologies and likely underlying hypovolemic and septic shock. 2. Worsening bilateral infiltrates, likely related to aspiration pneumonia. 3. Acute kidney injury secondary to hypotension and shock. 4. Small bowel obstruction. She has been seen by Surgery and not a surgical candidate. Over 2 liters of fluid came out from her orogastric tube upon insertion. 5. Chronic lymphedema of the lower extremities. 6. Leukocytosis. 7. Moderate protein-calorie malnutrition. 8. fever, improving 9. bacteremia, gram +cocci Plan . 1. Continue vent support, setting reviewed, off sedation.over breathing vent. not stable for sbt. cannot assess mental status . 2. Broad-spectrum antibiotic per Infectious Disease recommendations. 3. Follow all cultures. 4. Renal consultation / rec. try hco3 today 5. Follow Surgery recommendations. 6. Follow GI recommendations. 7. DVT and stress ulcer prophylaxis. 8. Prognosis appears to be grim. Palliative Care following would rec comfort care discussed w TYE Holley MD Apr 25, 2019 11:01
--- NOTE | 2019-04-25 11:41 | PDOC ---
[employer] PROGRESS NOTE Chief Complaint Chief Complaint Acute hypercapnic respiratory failure/ARDS Likely aspiration pneumonia Bilateral lung infiltrates RADHA SBO Chronic lymphedema of lower extremities Leukocytosis Protein/Calorie Malnutrition Bacteremia History of Present Illness History of Present Illness 04/25/19 Pt seen and examined in ICU on vent (vent settings: AC/20/500/40% Peep16) Pt has ET tube and OG tube to LIS Pt has dawn to BSD Sedated with precedex and fentanyl MANAGER PUBLISHING DW RN DW outpatient case manager chart reviewed Vitals/I&O Vitals/I&O: Vital Signs Date Time Temp Pulse Resp B/P (MAP) Pulse Ox O2 Delivery O2 Flow Rate FiO2 04/25/19 11:08 100 Ventilator 04/25/19 11:06 93 99/52 04/25/19 11:00 28 04/25/19 08:00 99.9 99.9 I & O 04/24/19 04/24/19 04/25/19 15:00 23:00 07:00 Intake Total 1803 ml 1313 ml Output Total 365 ml 445 ml 300 ml Balance -365 ml 1358 ml 1013 ml Physical Exam Physical Exam: GENERAL: Orally intubated, sedated, mitts HEENT: Pupils equal, small. ETT/ OGT with green colored output NECK: Supple. Left EJ LUNGS: Clear. HEART: S1, S2 regular. ABDOMEN: Soft, Umbilical hernia present. Large pannus present. EXTREMITIES: Both lower extremities have venous insufficiency, stasis dermatitis on both the legs posteriorly. Trace edema SKIN: Warm to touch. sacral wound NEUROLOGIC: Sedated on vent RIJ clean General: No acute distress Heart: Regular rate, Other (distant heart tones ) Lungs: Other (deminished) Abdomen: Soft, Other (hernia present, unable to reduce) Extremities: Other (extensive lymphedema) Skin: No significant lesion Labs Labs: Laboratory Tests Test 04/24/19 12:21 04/24/19 17:03 04/25/19 00:04 04/25/19 06:16 Glucose (Fingerstick) 342 mg/dL (70-99) 305 mg/dL (70-99) 315 mg/dL (70-99) 298 mg/dL (70-99) Test 04/25/19 09:25 04/25/19 09:30 O2 Saturation 98 % (92-99) Arterial Blood pH 7.46 (7.35-7.45) Arterial Blood pCO2 at Patient Temp 27 mmHg (35-46) Arterial Blood pO2 at Patient Temp 104 mmHg (65-108) Arterial Blood HCO3 19 mmol/L (21-28) Arterial Blood Base Excess -4 mmol/L (-3-3) FiO2 40 White Blood Count 11.2 x10^3/uL (4.0-11.0) Red Blood Count 4.49 x10^6/uL (3.50-5.40) Hemoglobin 10.1 g/dL (12.0-15.5) Hematocrit 31.8 % (36.0-47.0) Mean Corpuscular Volume 71 fL (79-100) Mean Corpuscular Hemoglobin 22 pg (25-35) Mean Corpuscular Hemoglobin Concent 32 g/dL (31-37) Red Cell Distribution Width 18.7 % (11.5-14.5) Platelet Count 54 x10^3/uL (140-400) Neutrophils (%) (Auto) 88 % (31-73) Lymphocytes (%) (Auto) 8 % (24-48) Monocytes (%) (Auto) 3 % (0-9) Eosinophils (%) (Auto) 0 % (0-3) Basophils (%) (Auto) 1 % (0-3) Neutrophils # (Auto) 9.9 x10^3/uL (1.8-7.7) Lymphocytes # (Auto) 0.8 x10^3/uL (1.0-4.8) Monocytes # (Auto) 0.4 x10^3/uL (0.0-1.1) Eosinophils # (Auto) 0.0 x10^3/uL (0.0-0.7) Basophils # (Auto) 0.1 x10^3/uL (0.0-0.2) Sodium Level 142 mmol/L (136-145) Potassium Level 4.2 mmol/L (3.5-5.1) Chloride Level 107 mmol/L (98-107) Carbon Dioxide Level 23 mmol/L (21-32) Anion Gap 12 (6-14) Blood Urea Nitrogen 54 mg/dL (7-20) Creatinine 0.8 mg/dL (0.6-1.0) Estimated GFR (Cockcroft-Gault) 72.2 BUN/Creatinine Ratio 68 (6-20) Glucose Level 331 mg/dL (70-99) Calcium Level 8.4 mg/dL (8.5-10.1) Total Bilirubin 1.3 mg/dL (0.2-1.0) Aspartate Amino Transf (AST/SGOT) 44 U/L (15-37) Alanine Aminotransferase (ALT/SGPT) 28 U/L (14-59) Alkaline Phosphatase 134 U/L (46-116) Total Protein 5.7 g/dL (6.4-8.2) Albumin 2.4 g/dL (3.4-5.0) Albumin/Globulin Ratio 0.7 (1.0-1.7) Review of Systems Review of Systems: No co changes in vision Co skin changes Assessment and Plan Assessmemt and Plan Problems Medical Problems: (1) Diabetes Status: Acute (2) Fall Status: Acute (3) Severe sepsis Status: Acute (4) UTI (urinary tract infection) Status: Acute (5) Weakness Status: Acute Assessment Acute hypercapnic respiratory failure/ARDS Likely aspiration pneumonia Bilateral lung infiltrates RADHA SBO Diabetes Mellitus Chronic lymphedema of lower extremities Leukocytosis Protein/Calorie Malnutrition Bacteremia Plan ICU monitoring Vent weening Sedate with precedex and fentanyl MANAGER PUBLISHING Trend labs DVT prophylaxis Dawn to BSD OG to LIS Change PPN to TPN sliding scale insulin Prognosis guarded Full code Appreciate subspecialty input Total time 31 min Comment Review of Relevant I have reviewed the following items ashok (where applicable) has been applied. CHRIS PHILLIPS III, DO Apr 25, 2019 11:41
[2019-04-25] MEDS: MEROPENEM 500 MG in IV NORMAL SALINE 50ML 50 ML IV SCH ×2 (12:28→18:32)
[2019-04-25 13:28] LABS: PHOSPHORUS 1.4 mg/dL (2.6-4.7)
[2019-04-25] MEDS: TPN PER PHARMACY MC PRN (13:35)
--- NOTE | 2019-04-25 13:40 | NUR ---
Pharmacy TPN Dosing Note S: XENA LEE is a 63 year old F Currently receiving Central Continuous TPN started 04/25/19 B:Pertinent PMH: Height: 5 feet, 3 inches Weight: 127.2 kg Current diet: NPO LABS: Sodium: 142 Potassium: 4.2 Chloride: 107 Calcium: 8.4 Corrected Calcium: 9.68 Magnesium: 2 CO2: 23 SCr: 0.8 Glucose: 331 Albumin: 2.4 AST: 44 ALT: 28 TPN FORMULA: TPN TYPE: Central Continuous AMINO ACIDS: 115 gm DEXTROSE: 250 gm LIPIDS: 30 gm SODIUM CHLORIDE: 90 mEq POTASSIUM CHLORIDE: 50 mEq POTASSIUM PHOSPHATE: 15 mmol MAGNESIUM: 10 mEq CALCIUM: 10 mEq INSULIN: 10 units MULTIPLE VITAMIN: 10 ml TRACE ELEMENTS: 1 ml(s) TPN PLAN: Kphos 15mmol IVPB x1 ordered for today per pharmacy electrolyte policy. Initiate TPN per leg assembler rec's. Insulin 10 units in first bag and Kphos increased to 15mmol. R: Begin TPN Will monitor electrolytes, glucose, and tolerance to TPN. Stella Rolle [facility], 04/25/19 [id number]
[2019-04-25] MEDS ORDERED: POTASSIUM PHOSPHATE DIBASIC 15 MMOL in IV NORMAL SALINE 250ML 250 ML IV ONE (14:00)
[2019-04-25] MEDS: IV NORMAL SALINE 1000ML BAG 1,000 ML IV SCH (17:28)
--- NOTE | 2019-04-25 19:12 | NUR ---
Wound care: Patient seen for follow up wound care. Pt has BLE lymphedema with small open areas and intact blister to LLE. Cleansed wound and applied ammonium lactate lotion as ordered. Pt has stage III with DTI to coccyx which appears to have worsened with and is bleeding. Cleansed area and applied contact layer and foam dressing. Pt on P500 bed, needs to be left and right turn only, pt turned with wedge. Stat locked applied. No other wounds noted upon complete head to toe assessment. Will follow regarding wound care. Bed lowered. Will follow patient regarding wound care.
[2019-04-25] MEDS ORDERED: DEXTROSE 70% IV SCH ×11 (22:00)
[2019-04-25] MEDS ORDERED: AMINO ACID IV SCH ×11 (22:00)
[2019-04-25] MEDS ORDERED: [UNRECOGNIZED DRUG - OTHER] IV SCH ×11 (22:00)
[2019-04-25] MEDS ORDERED: TOTAL PARENTERAL NUTRITION IV SCH ×11 (22:00)
[2019-04-26] VITALS (24 sets, daily range): BP systolic 78–135; BP diastolic 43–74
[2019-04-26] MEDS: MEROPENEM 500 MG in IV NORMAL SALINE 50ML 50 ML IV SCH ×4 (00:25→18:17)
[2019-04-26] MEDS: DEXMEDETOMIDINE 400 MCG in IV NORMAL SALINE 100ML 96 ML IV PRN ×3 (04:30→22:59)
[2019-04-26] MEDS: METOPROLOL TARTRATE 5 MG/5 ML VIAL. IVP SCH ×4 (05:30→18:00)
[2019-04-26 05:39] LABS: CALCIUM 8.5 mg/dL (8.5-10.1); CREATININE 0.9 mg/dL (0.6-1.0); MAGNESIUM 1.9 mg/dL (1.8-2.4); PHOSPHORUS 1.5 mg/dL (2.6-4.7); POTASSIUM 4.6 mmol/L (3.5-5.1)
[2019-04-26 06:04] LABS: BASO % 0 % (0-3); EOS % 0 % (0-3); HEMATOCRIT 30.6 % (36.0-47.0); HEMOGLOBIN 9.8 g/dL (12.0-15.5); LYMPH # 0.8 x10^3/uL (1.0-4.8); LYMPH % 7 % (24-48); MEAN CORPUSCULAR HEMOGLOBIN 23 pg (25-35); MEAN CORPUSCULAR HGB CONC 32 g/dL (31-37); MEAN CORPUSCULAR VOLUME 71 fL (79-100); MONO # 0.3 x10^3/uL (0.0-1.1); MONO % 3 % (0-9); NEUT # 9.2 x10^3/uL (1.8-7.7); NEUT % 89 % (31-73); PLATELET COUNT 52 x10^3/uL (140-400); RED BLOOD COUNT 4.31 x10^6/uL (3.50-5.40); RED CELL DISTRIBUTION WIDTH 18.9 % (11.5-14.5); WHITE BLOOD COUNT 10.4 x10^3/uL (4.0-11.0)
--- NOTE | 2019-04-26 07:59 | PDOC ---
Infectious Disease Note Subjective: Subjective Remains orally intubated/vent d/w rn febrile at 101.3 required only 250ml of iv fluid boluse yesterday uo has improved remains on same vent settings ROS: ROS unable to obtain Vital Signs: Vital Signs Vital Signs Date Time Temp Pulse Resp B/P (MAP) Pulse Ox O2 Delivery O2 Flow Rate FiO2 04/26/19 07:17 99 Ventilator 04/26/19 06:00 75 24 119/67 (84) 04/26/19 04:00 101.2 101.2 Physical Exam: PHYSICAL EXAM GENERAL: Orally intubated, sedated, mitts HEENT: Pupils equal, small. ETT/ OGT with green colored output NECK: Supple. Left EJ LUNGS: Clear. HEART: S1, S2 regular. ABDOMEN: Soft, Umbilical hernia present. Large pannus present. EXTREMITIES: Both lower extremities have venous insufficiency, stasis dermatitis on both the legs posteriorly. Trace edema SKIN: Warm to touch. sacral wound NEUROLOGIC: Sedated on vent RIJ clean Medications: Inpatient Meds: Current Medications Medications (Trade) Dose Ordered Sig/[place] Start Time Stop Time Status Last Admin Dose Admin Acetaminophen (Tylenol Supp) 650 mg PRN Q6HRS PRN 04/21/19 16:45 04/23/19 20:56 650 MG Acetaminophen (Tylenol) 650 mg PRN Q6HRS PRN 04/22/19 00:15 Cancel Albumin Human 100 ml @ 100 mls/hr TID 04/22/19 14:00 04/24/19 09:59 DC 04/24/19 08:10 100 MLS/HR Amino Acids/ Glycerin/ Electrolytes 1,000 ml @ 80 mls/hr [id number] 04/23/19 14:00 04/25/19 21:59 DC 04/25/19 17:31 80 MLS/HR Atropine Sulfate (ATROPINE 0.5mg SYRINGE) 0.5 mg PRN Q5MIN PRN 04/20/19 23:30 Ceftriaxone Sodium (Rocephin) 1 gm 1X ONCE 04/19/19 18:45 04/19/19 18:46 DC 04/19/19 19:17 1 GM Daptomycin 720 mg/ Sodium Chloride 50 ml @ 100 mls/hr ONCE ONCE 04/22/19 16:00 04/22/19 16:29 DC 04/22/19 15:06 100 MLS/HR Daptomycin 760 mg/ Sodium Chloride 50 ml @ 100 mls/hr ONCE ONCE 04/23/19 13:00 04/23/19 13:29 DC 04/23/19 13:02 100 MLS/HR Dexmedetomidine HCl 400 mcg/ Sodium Chloride 100 ml @ 0 mls/hr CONT PRN 04/20/19 23:30 04/26/19 04:30 8.5 MLS/HR Dextrose 250 ml PRN Q15MIN PRN 04/19/19 19:30 Dextrose (Dextrose 50%-Water Syringe) 12.5 gm PRN Q15MIN PRN 04/19/19 19:30 Enoxaparin Sodium (Lovenox 60mg Syringe) 60 mg Q12HR 04/21/19 21:00 04/22/19 15:40 DC 04/21/19 20:45 60 MG Epinephrine HCl 4 mg/Sodium Chloride 254 ml @ 42.935 mls/ hr CONT PRN 04/21/19 05:00 Fentanyl Citrate 30 ml @ 0 mls/hr CONT PRN PRN 04/20/19 17:15 04/26/19 03:12 1.25 MLS/HR Info (Tpn Per Pharmacy) 1 each PRN DAILY PRN 04/25/19 11:15 04/25/19 13:39 1 EACH Insulin Human Lispro (HumaLOG) 0-9 UNITS TIDWMEALS 04/25/19 12:00 04/25/19 17:31 4 UNITS Lactic Acid (Lac-Hydrin) 1 gauri BID 04/20/19 21:00 04/25/19 20:49 1 GAURI Lidocaine HCl (Xylocaine 2% Topical 5gm Tube) 5 gauri STK-MED ONCE 04/19/19 12:00 04/21/19 10:21 DC Lorazepam (Ativan Inj) 1 mg PRN 1X ONCE 04/20/19 16:15 04/20/19 16:16 DC Meropenem 500 mg/ Sodium Chloride 50 ml @ 100 mls/hr Q6HRS 04/25/19 12:00 04/26/19 05:31 100 MLS/HR Metoprolol Tartrate (Lopressor Vial) 2.5 mg Q6HRS 04/20/19 14:30 04/26/19 05:31 2.5 MG Metoprolol Tartrate (Lopressor) 25 mg BID 04/20/19 14:00 04/20/19 13:34 DC Midazolam HCl 100 ml @ 5 mls/hr CONT PRN 04/20/19 17:15 04/24/19 03:54 5 MLS/HR Midazolam HCl (Versed) 5 mg 1X ONCE 04/20/19 17:15 04/20/19 17:19 DC 04/20/19 17:38 5 MG Naloxone HCl (Narcan) 0.4 mg PRN Q2MIN PRN 04/20/19 17:15 Norepinephrine Bitartrate 250 ml @ 21.129 mls/ hr CONT PRN 04/20/19 17:30 UNV Ondansetron HCl (Zofran) 4 mg PRN Q6HRS PRN 04/20/19 10:00 04/20/19 16:04 4 MG Pantoprazole Sodium (PROTONIX VIAL for IV PUSH) 40 mg DAILYAC 04/20/19 12:30 04/25/19 09:41 40 MG Piperacillin Sod/ Tazobactam Sod 3.375 gm/Sodium Chloride 50 ml @ 100 mls/hr Q6HRS 04/20/19 18:00 04/25/19 07:48 DC 04/25/19 06:21 100 MLS/HR Potassium Chloride/Water 100 ml @ 100 mls/hr Q1H 04/20/19 12:00 04/20/19 15:59 DC 04/21/19 07:22 100 MLS/HR Potassium Phosphate 15 mmol/ Sodium Chloride 255 ml @ 127.5 mls/ hr 1X ONCE 04/25/19 14:00 04/25/19 15:59 DC 04/25/19 15:06 127.5 MLS/HR Potassium Chloride (Klor-Con) 40 meq 1X ONCE 04/20/19 11:30 04/20/19 11:31 Cancel Propofol 100 ml @ 1.69 mls/hr CONT PRN 04/20/19 17:15 04/20/19 17:36 6.761 MLS/HR Rocuronium [place] (Zemuron) 50 mg STK-MED ONCE 04/20/19 18:00 04/21/19 09:09 DC Sodium Bicarbonate (Sodium Bicarb Adult 8.4% Syr) 50 meq 1X ONCE 04/25/19 10:45 04/25/19 10:46 DC 04/25/19 12:19 50 MEQ Sodium Chloride 90 meq/Potassium Chloride 50 meq/ Potassium Phosphate 15 mmol/ Magnesium Sulfate 10 meq/Calcium Gluconate 10 meq/ Multivitamins 10 ml/Chromium/ Copper/Manganese/ Seleni/Zn 1 ml/ Insulin Human Regular 10 unit/ Total Parenteral Nutrition/Amino Acids/Dextrose/ Fat Emulsion Intravenous 1,512 ml @ 63 mls/hr TPN CONT 04/25/19 22:00 04/26/19 21:59 04/25/19 23:10 63 MLS/HR Succinylcholine Chloride (Anectine) 80 mg 1X ONCE 04/20/19 17:30 04/20/19 17:31 DC 04/20/19 17:36 80 MG Vancomycin HCl (Vanco Per Pharmacy) 1 each PRN DAILY PRN 04/19/19 19:15 04/21/19 09:40 DC 04/20/19 14:29 1 EACH Vancomycin HCl (Vancomycin Trough Level) 1 each 1X ONCE 04/21/19 07:30 04/21/19 07:31 DC 04/21/19 10:49 1 EACH Vancomycin HCl 1.5 gm/Sodium Chloride 500 ml @ 250 mls/hr Q12H 04/20/19 08:00 04/21/19 09:40 DC 04/20/19 20:04 250 MLS/HR Vancomycin HCl 2 gm/Sodium Chloride 500 ml @ 250 mls/hr 1X ONCE 04/19/19 19:15 04/19/19 21:14 DC 04/19/19 20:01 250 MLS/HR Vasopressin 40 unit/Dextrose 102 ml @ 6 mls/hr CONT PRN 04/21/19 04:00 04/24/19 15:38 6 MLS/HR Labs: Lab Laboratory Tests Test 04/25/19 09:25 04/25/19 09:30 04/25/19 12:16 04/25/19 17:27 O2 Saturation 98 % (92-99) Arterial Blood pH 7.46 (7.35-7.45) Arterial Blood pCO2 at Patient Temp 27 mmHg (35-46) Arterial Blood pO2 at Patient Temp 104 mmHg (65-108) Arterial Blood HCO3 19 mmol/L (21-28) Arterial Blood Base Excess -4 mmol/L (-3-3) FiO2 40 White Blood Count 11.2 x10^3/uL (4.0-11.0) Red Blood Count 4.49 x10^6/uL (3.50-5.40) Hemoglobin 10.1 g/dL (12.0-15.5) Hematocrit 31.8 % (36.0-47.0) Mean Corpuscular Volume 71 fL (79-100) Mean Corpuscular Hemoglobin 22 pg (25-35) Mean Corpuscular Hemoglobin Concent 32 g/dL (31-37) Red Cell Distribution Width 18.7 % (11.5-14.5) Platelet Count 54 x10^3/uL (140-400) Neutrophils (%) (Auto) 88 % (31-73) Lymphocytes (%) (Auto) 8 % (24-48) Monocytes (%) (Auto) 3 % (0-9) Eosinophils (%) (Auto) 0 % (0-3) Basophils (%) (Auto) 1 % (0-3) Neutrophils # (Auto) 9.9 x10^3/uL (1.8-7.7) Lymphocytes # (Auto) 0.8 x10^3/uL (1.0-4.8) Monocytes # (Auto) 0.4 x10^3/uL (0.0-1.1) Eosinophils # (Auto) 0.0 x10^3/uL (0.0-0.7) Basophils # (Auto) 0.1 x10^3/uL (0.0-0.2) Sodium Level 142 mmol/L (136-145) Potassium Level 4.2 mmol/L (3.5-5.1) Chloride Level 107 mmol/L (98-107) Carbon Dioxide Level 23 mmol/L (21-32) Anion Gap 12 (6-14) Blood Urea Nitrogen 54 mg/dL (7-20) Creatinine 0.8 mg/dL (0.6-1.0) Estimated GFR (Cockcroft-Gault) 72.2 BUN/Creatinine Ratio 68 (6-20) Glucose Level 331 mg/dL (70-99) Calcium Level 8.4 mg/dL (8.5-10.1) Phosphorus Level 1.4 mg/dL (2.6-4.7) Magnesium Level 2.0 mg/dL (1.8-2.4) Total Bilirubin 1.3 mg/dL (0.2-1.0) Aspartate Amino Transf (AST/SGOT) 44 U/L (15-37) Alanine Aminotransferase (ALT/SGPT) 28 U/L (14-59) Alkaline Phosphatase 134 U/L (46-116) Total Protein 5.7 g/dL (6.4-8.2) Albumin 2.4 g/dL (3.4-5.0) Albumin/Globulin Ratio 0.7 (1.0-1.7) Glucose (Fingerstick) 303 mg/dL (70-99) 275 mg/dL (70-99) Test 04/26/19 05:15 White Blood Count 10.4 x10^3/uL (4.0-11.0) Red Blood Count 4.31 x10^6/uL (3.50-5.40) Hemoglobin 9.8 g/dL (12.0-15.5) Hematocrit 30.6 % (36.0-47.0) Mean Corpuscular Volume 71 fL (79-100) Mean Corpuscular Hemoglobin 23 pg (25-35) Mean Corpuscular Hemoglobin Concent 32 g/dL (31-37) Red Cell Distribution Width 18.9 % (11.5-14.5) Platelet Count 52 x10^3/uL (140-400) Neutrophils (%) (Auto) 89 % (31-73) Lymphocytes (%) (Auto) 7 % (24-48) Monocytes (%) (Auto) 3 % (0-9) Eosinophils (%) (Auto) 0 % (0-3) Basophils (%) (Auto) 0 % (0-3) Neutrophils # (Auto) 9.2 x10^3/uL (1.8-7.7) Lymphocytes # (Auto) 0.8 x10^3/uL (1.0-4.8) Monocytes # (Auto) 0.3 x10^3/uL (0.0-1.1) Eosinophils # (Auto) 0.0 x10^3/uL (0.0-0.7) Basophils # (Auto) 0.0 x10^3/uL (0.0-0.2) Sodium Level 144 mmol/L (136-145) Potassium Level 4.6 mmol/L (3.5-5.1) Chloride Level 110 mmol/L (98-107) Carbon Dioxide Level 23 mmol/L (21-32) Anion Gap 11 (6-14) Blood Urea Nitrogen 50 mg/dL (7-20) Creatinine 0.9 mg/dL (0.6-1.0) Estimated GFR (Cockcroft-Gault) 63.0 Glucose Level 385 mg/dL (70-99) Calcium Level 8.5 mg/dL (8.5-10.1) Phosphorus Level 1.5 mg/dL (2.6-4.7) Magnesium Level 1.9 mg/dL (1.8-2.4) Triglycerides Level 262 mg/dL (0-150) Micro RUN DATE: 04/23/19 PAGE 1 RUN TIME: 0652 [facility] [address] [place] [address] Jae Wright M.D., Deputy Manager PATIENT: XENA LEE ACCT: [id number] LOC: 1 [facility] U: [id number] AGE/SX: 63/F ROOM: 115 RE04/19/[address]: ASHLY SIEGEL MD : 1955 BED: 1 DIS: STATUS: ADM IN TLOC: SPEC #: [id number] WEST: 04/19/19 STATUS: COMP REQ #: [id number] RECD: 04/19/[address]: BENJIE DE LOS SANTOS MD SOURCE: BLOOD ENTR: 04/20/19-1545 [facility] DR: GEOVANNA LUEVANO [facility]: ORDERED: BLD CULT - LC Procedure Result BLOOD CULTURE LC Final Preliminary report Final report BLD CULT RESULT 1 Final Comment Staphylococcus species Performed at: - [facility] [place] [id number] [id number] [employer] Operator: BHARGAVI Smart MD, Phone: [phone] Staphylococcus epidermidis Based on susceptibility to oxacillin this isolate would be susceptible to: *Penicillinase-stable penicillins, such as: Cloxacillin, Dicloxacillin, Nafcillin *Beta-lactam combination agents, such as: Amoxicillin-clavulanic acid, Ampicillin-sulbactam, Piperacillin-tazobactam *Oral cephems, such as: Cefaclor, Cefdinir, Cefpodoxime, Cefprozil, Cefuroxime, Cephalexin, Loracarbef *Parenteral cephems, such as: Cefazolin, Cefepime, Cefotaxime, Cefotetan, Ceftaroline, Ceftizoxime, Ceftriaxone, Cefuroxime *Carbapenems, such as: Doripenem, Ertapenem, Imipenem, Meropenem ANTIMICROBIAL SUSCEPTIBILITY Final Comment S = Susceptible; I = Intermediate; R = Resistant P = Positive; N = Negative MICS are expressed in micrograms per mL Antibiotic RSLT#1 RSLT#2 RSLT#3 RSLT#4 Ciprofloxacin S<=0.5 Clindamycin S<=0.25 Erythromycin R>=8 Gentamicin S<=0.5 CONTINUED ON NEXT PAGE RUN DATE: 04/23/19 PAGE 2 RUN TIME: 5150 [facility] [address] [place] [address] Jae Wright M.D., Deputy Manager SPEC: [id number] PATIENT: XENA LEE [id number] (Continued) Procedure Result ANTIMICROBIAL SUSCEPTIBILITY Final (continued) Levofloxacin S<=0.12 Linezolid S =1 Nitrofurantoin S<=16 Oxacillin S<=0.25 Penicillin R>=0.5 Quinupristin/Dalfopristin S<=0.25 Rifampin S<=0.5 Tetracycline S<=1 Trimethoprim/Sulfa S<=10 Vancomycin S =1 Performed at: DA - [facility] [place] [address], [place], [place] [id number] [employer] Operator: BHARGAVI Smart MD, Phone: [phone] Objective: Assessment: MSSA Bacteremia 04/19 08/17 BOTTLES repeat bc neg so far Sepsis from above febrile again Leukocytosis Acute resp failure multifactorial, Pneumonia ,likely aspiration Lactic acidosis. Urinary tract infection versus hematuria. UC no growth Poor personal hygiene. Sacral decubitus. venous stasis with weeping lesions ble Status post fall. Abdominal pain. Large pelvic mass Transaminitis Chronic liver disease Dilated gallbladder with gallbladder sludge and wall thickening, Small upper abdominal ascites. Splenomegaly. Thrombocytopenia Plan: Plan of Care cont merrem 04/26 off Zosyn due to thrombocytopenia 04/25 bc ,ua and urine c/s restart daptomycin F/u BC 04/21 ; neg so far Supportive care Overall prognosis very poor Palliative on case d/w Nursing staff CARLITOS VILLASEÑOR MD Apr 26, 2019 07:59
[2019-04-26] MEDS: PANTOPRAZOLE IV PUSH 40 MG VIAL. IVP SCH (08:08)
[2019-04-26] MEDS: INSULIN LISPRO 300 UNITS/3 ML VIAL. SQ SCH ×3 (08:19→18:23)
[2019-04-26] MEDS: AMMONIUM LACTATE 12% TOPICAL LOTION 226GM BOTTLE. TP SCH ×2 (08:20→22:12)
[2019-04-26] MEDS: MICAFUNGIN 100 MG in IV DEXTROSE 5% 100ML 100 ML IV SCH (08:20)
[2019-04-26 08:28] LABS: BILIRUBIN,URINE NEGATIVE (NEG); CLARITY,URINE CLEAR; COLOR,URINE AMBER; NITRITE,URINE NEGATIVE (NEG); PH,URINE 5.5; PROTEIN,URINE 30 mg/dL (NEG-TRACE)
[2019-04-26 08:40] LABS: BACTERIA,URINE 0 /HPF (0-FEW); RBC,URINE TNTC /HPF (0-2)
[2019-04-26 08:57] LABS: BASE EXCESS ABG -4 mmol/L (-3-3); HCO3 ABG 19 mmol/L (21-28); PCO2 ABG 27 mmHg (35-46); PO2 ABG 81 mmHg (65-108); SAT O2 ABG 96 % (92-99)
[2019-04-26 09:04] LABS: FIO2 ABG 35
--- NOTE | 2019-04-26 09:52 | PDOC ---
Objective: Objective: ~1150cc in OG canister total D/w nurse - has fever, new cultures drawn, lightly sedated. Vital Signs: Vital Signs Date Time Temp Pulse Resp B/P (MAP) Pulse Ox O2 Delivery O2 Flow Rate FiO2 04/26/19 07:17 99 Ventilator 04/26/19 06:00 75 24 119/67 (84) 04/26/19 04:00 101.2 101.2 Labs: Laboratory Tests Test 04/25/19 12:16 04/25/19 17:27 04/26/19 05:15 04/26/19 08:00 Glucose (Fingerstick) 303 mg/dL 275 mg/dL White Blood Count 10.4 x10^3/uL Red Blood Count 4.31 x10^6/uL Hemoglobin 9.8 g/dL Hematocrit 30.6 % Mean Corpuscular Volume 71 fL Mean Corpuscular Hemoglobin 23 pg Mean Corpuscular Hemoglobin Concent 32 g/dL Red Cell Distribution Width 18.9 % Platelet Count 52 x10^3/uL Neutrophils (%) (Auto) 89 % Lymphocytes (%) (Auto) 7 % Monocytes (%) (Auto) 3 % Eosinophils (%) (Auto) 0 % Basophils (%) (Auto) 0 % Neutrophils # (Auto) 9.2 x10^3/uL Lymphocytes # (Auto) 0.8 x10^3/uL Monocytes # (Auto) 0.3 x10^3/uL Eosinophils # (Auto) 0.0 x10^3/uL Basophils # (Auto) 0.0 x10^3/uL Sodium Level 144 mmol/L Potassium Level 4.6 mmol/L Chloride Level 110 mmol/L Carbon Dioxide Level 23 mmol/L Anion Gap 11 Blood Urea Nitrogen 50 mg/dL Creatinine 0.9 mg/dL Estimated GFR (Cockcroft-Gault) 63.0 Glucose Level 385 mg/dL Calcium Level 8.5 mg/dL Phosphorus Level 1.5 mg/dL Magnesium Level 1.9 mg/dL Triglycerides Level 262 mg/dL Urine Collection Type Unknown Urine Color Yani Urine Clarity Clear Urine pH 5.5 Urine Specific Hammett >=1.030 Urine Protein 30 mg/dL Urine Glucose (UA) >=1000 mg/dL Urine Ketones (Stick) Negative mg/dL Urine Blood Large Urine Nitrite Negative Urine Bilirubin Negative Urine Urobilinogen Dipstick 1.0 mg/dL Urine Leukocyte Esterase Small Urine RBC Tntc /HPF Urine WBC 5-10 /HPF Urine Bacteria 0 /HPF O2 Saturation 96 % Arterial Blood pH 7.47 Arterial Blood pCO2 at Patient Temp 27 mmHg Arterial Blood pO2 at Patient Temp 81 mmHg Arterial Blood HCO3 19 mmol/L Arterial Blood Base Excess -4 mmol/L FiO2 35 Test 04/26/19 08:17 04/26/19 08:20 Glucose (Fingerstick) 387 mg/dL Lactic Acid Level 3.1 mmol/L PE: GEN: intubated LUNGS: vent HEART: RR ABD: obese, somewhat firm, umbilical hernia NEURO/PSYCH: sedated A/P: Umbilical hernia w/ SBO, lactic acidosis Fever, MSSA bacteremia, resp failure Left adnexal mass, lymphadenopathy, cirrhosis Anemia, thrombocytopenia - worse -- Ill w/ SBO and sepsis - not a surgical candidate. DESHAWN SALEH Apr 26, 2019 09:52
[2019-04-26] MEDS: DAPTOMYCIN IV SCH (10:36)
[2019-04-26] MEDS: NORMAL SALINE IV SCH (10:36)
[2019-04-26] MEDS ORDERED: IV NORMAL SALINE 1000ML BAG 1,000 ML IV ONE (11:00)
--- NOTE | 2019-04-26 11:23 | PDOC ---
PULMONARY PROGRESS NOTES Subjective on vent, on peep 5, fio2 40%, sedated ,off levo, v recurrent fever, lactic acidosis Vitals Vital Signs Date Time Temp Pulse Resp B/P (MAP) Pulse Ox O2 Delivery O2 Flow Rate FiO2 04/26/19 09:46 98 Ventilator 04/26/19 06:00 75 24 119/67 (84) 04/26/19 04:00 101.2 101.2 Comments ros as mentioned as above discussed w rn other sys otherwise neg on vent sedated Lungs: Other (deminished) Cardiovascular: S1, S2 Abdomen: Other (distended obese deminished bs) Extremities: Other (lymphedema) Skin: Warm Labs Laboratory Tests Test 04/24/19 12:21 04/24/19 17:03 04/25/19 00:04 04/25/19 06:16 Glucose (Fingerstick) 342 mg/dL (70-99) 305 mg/dL (70-99) 315 mg/dL (70-99) 298 mg/dL (70-99) Test 04/25/19 09:25 04/25/19 09:30 04/25/19 12:16 04/25/19 17:27 O2 Saturation 98 % (92-99) Arterial Blood pH 7.46 (7.35-7.45) Arterial Blood pCO2 at Patient Temp 27 mmHg (35-46) Arterial Blood pO2 at Patient Temp 104 mmHg (65-108) Arterial Blood HCO3 19 mmol/L (21-28) Arterial Blood Base Excess -4 mmol/L (-3-3) FiO2 40 White Blood Count 11.2 x10^3/uL (4.0-11.0) Red Blood Count 4.49 x10^6/uL (3.50-5.40) Hemoglobin 10.1 g/dL (12.0-15.5) Hematocrit 31.8 % (36.0-47.0) Mean Corpuscular Volume 71 fL (79-100) Mean Corpuscular Hemoglobin 22 pg (25-35) Mean Corpuscular Hemoglobin Concent 32 g/dL (31-37) Red Cell Distribution Width 18.7 % (11.5-14.5) Platelet Count 54 x10^3/uL (140-400) Neutrophils (%) (Auto) 88 % (31-73) Lymphocytes (%) (Auto) 8 % (24-48) Monocytes (%) (Auto) 3 % (0-9) Eosinophils (%) (Auto) 0 % (0-3) Basophils (%) (Auto) 1 % (0-3) Neutrophils # (Auto) 9.9 x10^3/uL (1.8-7.7) Lymphocytes # (Auto) 0.8 x10^3/uL (1.0-4.8) Monocytes # (Auto) 0.4 x10^3/uL (0.0-1.1) Eosinophils # (Auto) 0.0 x10^3/uL (0.0-0.7) Basophils # (Auto) 0.1 x10^3/uL (0.0-0.2) Sodium Level 142 mmol/L (136-145) Potassium Level 4.2 mmol/L (3.5-5.1) Chloride Level 107 mmol/L (98-107) Carbon Dioxide Level 23 mmol/L (21-32) Anion Gap 12 (6-14) Blood Urea Nitrogen 54 mg/dL (7-20) Creatinine 0.8 mg/dL (0.6-1.0) Estimated GFR (Cockcroft-Gault) 72.2 BUN/Creatinine Ratio 68 (6-20) Glucose Level 331 mg/dL (70-99) Calcium Level 8.4 mg/dL (8.5-10.1) Phosphorus Level 1.4 mg/dL (2.6-4.7) Magnesium Level 2.0 mg/dL (1.8-2.4) Total Bilirubin 1.3 mg/dL (0.2-1.0) Aspartate Amino Transf (AST/SGOT) 44 U/L (15-37) Alanine Aminotransferase (ALT/SGPT) 28 U/L (14-59) Alkaline Phosphatase 134 U/L (46-116) Total Protein 5.7 g/dL (6.4-8.2) Albumin 2.4 g/dL (3.4-5.0) Albumin/Globulin Ratio 0.7 (1.0-1.7) Glucose (Fingerstick) 303 mg/dL (70-99) 275 mg/dL (70-99) Test 04/26/19 05:15 04/26/19 08:00 04/26/19 08:04/26/19 08:20 White Blood Count 10.4 x10^3/uL (4.0-11.0) Red Blood Count 4.31 x10^6/uL (3.50-5.40) Hemoglobin 9.8 g/dL (12.0-15.5) Hematocrit 30.6 % (36.0-47.0) Mean Corpuscular Volume 71 fL (79-100) Mean Corpuscular Hemoglobin 23 pg (25-35) Mean Corpuscular Hemoglobin Concent 32 g/dL (31-37) Red Cell Distribution Width 18.9 % (11.5-14.5) Platelet Count 52 x10^3/uL (140-400) Neutrophils (%) (Auto) 89 % (31-73) Lymphocytes (%) (Auto) 7 % (24-48) Monocytes (%) (Auto) 3 % (0-9) Eosinophils (%) (Auto) 0 % (0-3) Basophils (%) (Auto) 0 % (0-3) Neutrophils # (Auto) 9.2 x10^3/uL (1.8-7.7) Lymphocytes # (Auto) 0.8 x10^3/uL (1.0-4.8) Monocytes # (Auto) 0.3 x10^3/uL (0.0-1.1) Eosinophils # (Auto) 0.0 x10^3/uL (0.0-0.7) Basophils # (Auto) 0.0 x10^3/uL (0.0-0.2) Sodium Level 144 mmol/L (136-145) Potassium Level 4.6 mmol/L (3.5-5.1) Chloride Level 110 mmol/L (98-107) Carbon Dioxide Level 23 mmol/L (21-32) Anion Gap 11 (6-14) Blood Urea Nitrogen 50 mg/dL (7-20) Creatinine 0.9 mg/dL (0.6-1.0) Estimated GFR (Cockcroft-Gault) 63.0 Glucose Level 385 mg/dL (70-99) Calcium Level 8.5 mg/dL (8.5-10.1) Phosphorus Level 1.5 mg/dL (2.6-4.7) Magnesium Level 1.9 mg/dL (1.8-2.4) Triglycerides Level 262 mg/dL (0-150) Urine Collection Type Unknown Urine Color Yani Urine Clarity Clear Urine pH 5.5 Urine Specific Addison >=1.030 Urine Protein 30 mg/dL (NEG-TRACE) Urine Glucose (UA) >=1000 mg/dL (NEG) Urine Ketones (Stick) Negative mg/dL (NEG) Urine Blood Large (NEG) Urine Nitrite Negative (NEG) Urine Bilirubin Negative (NEG) Urine Urobilinogen Dipstick 1.0 mg/dL (0.2 mg/dL) Urine Leukocyte Esterase Small (NEG) Urine RBC Tntc /HPF (0-2) Urine WBC 5-10 /HPF (0-4) Urine Bacteria 0 /HPF (0-FEW) O2 Saturation 96 % (92-99) Arterial Blood pH 7.47 (7.35-7.45) Arterial Blood pCO2 at Patient Temp 27 mmHg (35-46) Arterial Blood pO2 at Patient Temp 81 mmHg (65-108) Arterial Blood HCO3 19 mmol/L (21-28) Arterial Blood Base Excess -4 mmol/L (-3-3) FiO2 35 Glucose (Fingerstick) 387 mg/dL (70-99) Lactic Acid Level 3.1 mmol/L (0.4-2.0) Laboratory Tests Test 04/25/19 12:16 04/25/19 17:27 04/26/19 05:15 04/26/19 08:00 Glucose (Fingerstick) 303 mg/dL (70-99) 275 mg/dL (70-99) White Blood Count 10.4 x10^3/uL (4.0-11.0) Red Blood Count 4.31 x10^6/uL (3.50-5.40) Hemoglobin 9.8 g/dL (12.0-15.5) Hematocrit 30.6 % (36.0-47.0) Mean Corpuscular Volume 71 fL (79-100) Mean Corpuscular Hemoglobin 23 pg (25-35) Mean Corpuscular Hemoglobin Concent 32 g/dL (31-37) Red Cell Distribution Width 18.9 % (11.5-14.5) Platelet Count 52 x10^3/uL (140-400) Neutrophils (%) (Auto) 89 % (31-73) Lymphocytes (%) (Auto) 7 % (24-48) Monocytes (%) (Auto) 3 % (0-9) Eosinophils (%) (Auto) 0 % (0-3) Basophils (%) (Auto) 0 % (0-3) Neutrophils # (Auto) 9.2 x10^3/uL (1.8-7.7) Lymphocytes # (Auto) 0.8 x10^3/uL (1.0-4.8) Monocytes # (Auto) 0.3 x10^3/uL (0.0-1.1) Eosinophils # (Auto) 0.0 x10^3/uL (0.0-0.7) Basophils # (Auto) 0.0 x10^3/uL (0.0-0.2) Sodium Level 144 mmol/L (136-145) Potassium Level 4.6 mmol/L (3.5-5.1) Chloride Level 110 mmol/L (98-107) Carbon Dioxide Level 23 mmol/L (21-32) Anion Gap 11 (6-14) Blood Urea Nitrogen 50 mg/dL (7-20) Creatinine 0.9 mg/dL (0.6-1.0) Estimated GFR (Cockcroft-Gault) 63.0 Glucose Level 385 mg/dL (70-99) Calcium Level 8.5 mg/dL (8.5-10.1) Phosphorus Level 1.5 mg/dL (2.6-4.7) Magnesium Level 1.9 mg/dL (1.8-2.4) Triglycerides Level 262 mg/dL (0-150) Urine Collection Type Unknown Urine Color Yani Urine Clarity Clear Urine pH 5.5 Urine Specific Addison >=1.030 Urine Protein 30 mg/dL (NEG-TRACE) Urine Glucose (UA) >=1000 mg/dL (NEG) Urine Ketones (Stick) Negative mg/dL (NEG) Urine Blood Large (NEG) Urine Nitrite Negative (NEG) Urine Bilirubin Negative (NEG) Urine Urobilinogen Dipstick 1.0 mg/dL (0.2 mg/dL) Urine Leukocyte Esterase Small (NEG) Urine RBC Tntc /HPF (0-2) Urine WBC 5-10 /HPF (0-4) Urine Bacteria 0 /HPF (0-FEW) O2 Saturation 96 % (92-99) Arterial Blood pH 7.47 (7.35-7.45) Arterial Blood pCO2 at Patient Temp 27 mmHg (35-46) Arterial Blood pO2 at Patient Temp 81 mmHg (65-108) Arterial Blood HCO3 19 mmol/L (21-28) Arterial Blood Base Excess -4 mmol/L (-3-3) FiO2 35 Test 04/26/19 08:17 04/26/19 08:20 Glucose (Fingerstick) 387 mg/dL (70-99) Lactic Acid Level 3.1 mmol/L (0.4-2.0) Medications Active Scripts Medications Dose Route/Sig Max Daily Dose Days Date Category No Known Medications Prior To Admisstion (Info) Each 1 Each 1X 04/20/19 Reported Comments cxr reviewed 04/25 bilateral lower lobe left greater than right atelectasis and/or infiltrate. ett ok Impression . IMPRESSION: 1. Acute hypercapnic respiratory failure secondary to multifactorial etiologies and likely underlying hypovolemic and septic shock., now with recurrent fever, lactic acidosis 2. bilateral infiltrates, likely related to aspiration pneumonia. 3. Acute kidney injury secondary to hypotension and shock. 4. Small bowel obstruction. She has been seen by Surgery and not a surgical candidate. Over 2 liters of fluid came out from her orogastric tube upon insertion. 5. Chronic lymphedema of the lower extremities. 6. Leukocytosis. 7. Moderate protein-calorie malnutrition. 8. fever, 9. bacteremia, gram +cocci, recent MSSA bacteremia Plan . 1. Continue vent support, setting reviewed, back on sedation.not stable for sbt. 2. Broad-spectrum antibiotic per Infectious Disease recommendations. 3. Follow all cultures. 4. Renal consultation / rec. 5. Follow Surgery recommendations. 6. Follow GI recommendations. 7. DVT and stress ulcer prophylaxis. 8. Prognosis appears to be grim. Palliative Care following would rec comfort care discussed w TYE Holley MD Apr 26, 2019 11:23
[2019-04-26] MEDS ORDERED: INSULIN LISPRO 300 UNITS/3 ML VIAL. SQ SCH (12:15)
--- NOTE | 2019-04-26 13:11 | PDOC ---
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 and precedex DW RN RN taking pt for CT of abdomen Had fever overnight; given NS 1000 cc bolus Glucose taken by RN; Current glucose: 369 Currently sat-ing at 99% Chart reviewed 04/25/19 Pt seen and examined in ICU on vent (vent settings: AC/20/500/40% Peep16) Pt has ET tube and OG tube to LIS Pt has dawn to BSD Sedated with precedex and fentanyl COMMERCIAL ENERGY AUDITOR STANLEY RN DW patient case coordinator chart reviewed Vitals/I&O Vitals/I&O: Vital Signs Date Time Temp Pulse Resp B/P (MAP) Pulse Ox O2 Delivery O2 Flow Rate FiO2 04/26/19 09:46 98 Ventilator 04/26/19 06:00 75 24 119/67 (84) 04/26/19 04:00 101.2 101.2 I & O 04/25/19 04/25/19 04/26/19 15:00 23:00 07:00 Intake Total 69.23 ml 939.09 ml 1065 ml Output Total 320 ml 240 ml 350 ml Balance -250.77 ml 699.09 ml 715 ml Physical Exam Physical Exam: GENERAL: Orally intubated, sedated, mitts HEENT: Pupils equal, small. ETT/ OGT with green colored output NECK: Supple. Left EJ LUNGS: Clear. HEART: S1, S2 regular. ABDOMEN: Soft, Umbilical hernia present. Large pannus present. EXTREMITIES: Both lower extremities have venous insufficiency, stasis dermatitis on both the legs posteriorly. Trace edema SKIN: Warm to touch. sacral wound NEUROLOGIC: Sedated on vent RIJ clean General: No acute distress Heart: Regular rate, Other (distant heart tones ) Lungs: Other (deminished) Abdomen: Soft, Other (hernia present, unable to reduce) Extremities: Other (extensive lymphedema) Skin: No significant lesion Labs Labs: Laboratory Tests Test 04/25/19 17:27 04/26/19 05:15 04/26/19 08:00 04/26/19 08:17 Glucose (Fingerstick) 275 mg/dL (70-99) 387 mg/dL (70-99) White Blood Count 10.4 x10^3/uL (4.0-11.0) Red Blood Count 4.31 x10^6/uL (3.50-5.40) Hemoglobin 9.8 g/dL (12.0-15.5) Hematocrit 30.6 % (36.0-47.0) Mean Corpuscular Volume 71 fL (79-100) Mean Corpuscular Hemoglobin 23 pg (25-35) Mean Corpuscular Hemoglobin Concent 32 g/dL (31-37) Red Cell Distribution Width 18.9 % (11.5-14.5) Platelet Count 52 x10^3/uL (140-400) Neutrophils (%) (Auto) 89 % (31-73) Lymphocytes (%) (Auto) 7 % (24-48) Monocytes (%) (Auto) 3 % (0-9) Eosinophils (%) (Auto) 0 % (0-3) Basophils (%) (Auto) 0 % (0-3) Neutrophils # (Auto) 9.2 x10^3/uL (1.8-7.7) Lymphocytes # (Auto) 0.8 x10^3/uL (1.0-4.8) Monocytes # (Auto) 0.3 x10^3/uL (0.0-1.1) Eosinophils # (Auto) 0.0 x10^3/uL (0.0-0.7) Basophils # (Auto) 0.0 x10^3/uL (0.0-0.2) Sodium Level 144 mmol/L (136-145) Potassium Level 4.6 mmol/L (3.5-5.1) Chloride Level 110 mmol/L (98-107) Carbon Dioxide Level 23 mmol/L (21-32) Anion Gap 11 (6-14) Blood Urea Nitrogen 50 mg/dL (7-20) Creatinine 0.9 mg/dL (0.6-1.0) Estimated GFR (Cockcroft-Gault) 63.0 Glucose Level 385 mg/dL (70-99) Calcium Level 8.5 mg/dL (8.5-10.1) Phosphorus Level 1.5 mg/dL (2.6-4.7) Magnesium Level 1.9 mg/dL (1.8-2.4) Triglycerides Level 262 mg/dL (0-150) Urine Collection Type Unknown Urine Color Yani Urine Clarity Clear Urine pH 5.5 Urine Specific [place] >=1.030 Urine Protein 30 mg/dL (NEG-TRACE) Urine Glucose (UA) >=1000 mg/dL (NEG) Urine Ketones (Stick) Negative mg/dL (NEG) Urine Blood Large (NEG) Urine Nitrite Negative (NEG) Urine Bilirubin Negative (NEG) Urine Urobilinogen Dipstick 1.0 mg/dL (0.2 mg/dL) Urine Leukocyte Esterase Small (NEG) Urine RBC Tntc /HPF (0-2) Urine WBC 5-10 /HPF (0-4) Urine Bacteria 0 /HPF (0-FEW) O2 Saturation 96 % (92-99) Arterial Blood pH 7.47 (7.35-7.45) Arterial Blood pCO2 at Patient Temp 27 mmHg (35-46) Arterial Blood pO2 at Patient Temp 81 mmHg (65-108) Arterial Blood HCO3 19 mmol/L (21-28) Arterial Blood Base Excess -4 mmol/L (-3-3) FiO2 35 Test 04/26/19 08:20 04/26/19 12:00 Lactic Acid Level 3.1 mmol/L (0.4-2.0) Glucose (Fingerstick) 369 mg/dL (70-99) Review of Systems Review of Systems: No co changes in vision No co acute pain Assessment and Plan Assessmemt and Plan Problems Medical Problems: (1) Diabetes Status: Acute (2) Fall Status: Acute (3) Severe sepsis Status: Acute (4) UTI (urinary tract infection) Status: Acute (5) Weakness Status: Acute Assessment Acute hypercapnic respiratory failure/ARDS Likely aspiration pneumonia Bilateral lung infiltrates RADHA SBO Diabetes Mellitus Chronic lymphedema of lower extremities Leukocytosis Protein/Calorie Malnutrition Bacteremia Plan ICU monitoring Proceed with vent weening Continue sedation with precedex and fentanyl COMMERCIAL ENERGY AUDITOR Dawn to BSD Maintain OG to LIS sliding scale insulin Prognosis guarded Trend labs DVT prophylaxis Full code Appreciate subspecialty input Total time 33 min Comment Review of Relevant I have reviewed the following items ashok (where applicable) has been applied. Medications: Current Medications Medications (Trade) Dose Ordered Sig/[place] Route PRN Reason Start Time Stop Time Status Last Admin Dose Admin Potassium Phosphate 15 mmol/ Sodium Chloride 255 ml @ 127.5 mls/ hr 1X ONCE IV 04/25/19 14:00 04/25/19 15:59 DC 04/25/19 15:06 Sodium Chloride 90 meq/Potassium Chloride 50 meq/ Potassium Phosphate 15 mmol/ Magnesium Sulfate 10 meq/Calcium Gluconate 10 meq/ Multivitamins 10 ml/Chromium/ Copper/Manganese/ Seleni/Zn 1 ml/ Insulin Human Regular 10 unit/ Total Parenteral Nutrition/Amino Acids/Dextrose/ Fat Emulsion Intravenous 1,512 ml @ 63 mls/hr TPN CONT IV 04/25/19 22:00 04/26/19 21:59 04/25/19 23:10 Daptomycin 780 mg/ Sodium Chloride 50 ml @ 100 mls/hr Q24H IV 04/26/19 10:00 04/26/19 10:36 Micafungin Sodium 100 mg/Dextrose 100 ml @ 100 mls/hr Q24H IV 04/26/19 08:30 04/26/19 08:20 Sodium Chloride 1,000 ml @ 1,000 mls/hr 1X ONCE IV 04/26/19 11:00 04/26/19 11:59 DC 04/26/19 11:13 CHRIS PHILLIPS III DO Apr 26, 2019 13:11
--- NOTE | 2019-04-26 13:22 | RAD ---
PQRS Compliance statement: One or more of the following individualized dose reduction techniques were utilized for this examination: 1. Automated exposure control. 2. Adjustment of the mA and/or kV according to patient size. 3. Use of iterative reconstruction technique. Indication:Sepsis. TECHNIQUE: CT abdomen and pelvis without IV contrast with multiplanar reformats. COMPARISON: 04/20/2019. FINDINGS: Limited evaluation of solid abdominal and pelvic organs due to lack of IV contrast. Heart is normal in size. Trace left pleural effusion. Consolidation is seen in the bilateral lung bases, left more than right. NG tube is seen within the body of the stomach. Cirrhotic morphology of the liver noted. Spleen is mildly enlarged. Stable small volume ascites is seen. Concentrated bile or sludge is seen in the gallbladder. Noncontrast appearance of the pancreas and adrenals within normal limits. Punctate nonobstructing right renal stone. No hydronephrosis. Multiple enlarged retroperitoneal lymph nodes are seen, the largest karla mass adjacent to the right common iliac artery measuring 3.9 x 4.0 cm, previously 4.6 x 4.2 cm. Umbilical hernia is again seen containing focal loop of small bowel with resolution of previously seen dilated bowel loops. Omental nodularity seen (series 2 image 58). Anteverted uterus. Again seen is a left adnexal masslike lesion approximately measuring 9.0 x 8.5 cm. Urinary bladder is decompressed with Drew catheter. Bilateral enlarged inguinal lymph nodes are seen, the largest on the left side measuring 3.5 x 2.8 cm. Mild body wall edema noted. No suspicious bony lesion. IMPRESSION: Limited exam due to lack of IV contrast. 1. Bilateral lung bases consolidations, left more than right may be secondary to atelectasis or pneumonia. 2. Cirrhosis with evidence of portal venous hypertension. Stable small volume ascites. 3. Umbilical hernia containing focal loop of small bowel with resolution of previously seen dilated bowel loops. No imaging evidence of high-grade bowel obstruction. 4. Enlarged retroperitoneal and inguinal lymph nodes concerning for lymphoma or metastasis. 5. Omental nodularity suggests a metastasis or pneumatosis. 6. Left adnexal masslike lesion may be of ovarian origin or pedunculated fibroid. Nonemergent MRI of the pelvis with IV contrast recommended. Electronically signed by: Miguel Hampton DO (04/26/2019 1:19 PM) [id number]
[2019-04-26] MEDS ORDERED: INSULIN LISPRO 300 UNITS/3 ML VIAL. SQ ONE (13:30)
--- NOTE | 2019-04-26 13:49 | PDOC2 ---
PALLIATIVE CARE Palliative Care Note Patient remains on Vent. Sedation. Attempted x 2 to reach . Also had regional owner operator truck driver try. Busy signal unable to leave message. Message x2 left with Viry /daughter. [address] scan with Dr. Pascual. Discussed prognosis and plan. 1825Met with Pierre, . Reviewed Medical information; Sepsis, febrile 101.7 today; Respiratory failure--unable to do weaning trials, UTI--continuing antibiotics; wounds, large pelvic mass and findings on CT scan, Liver disease, decreased platelets; gallbladder disease. Prognosis poor--not likely to survive this hospitalization. Daughters Viry and Adriana unable to attend. Discussed Code Status; Risk and benefits of resuscitation discussed. Pierre/ requests DNR/ Outside the hospital DNR form signed. Will call for orders. Pierre shared; for 36 years. Worked in [employer]. Sondra not a part of her life. Shared he had seen a decline in the last month. Minimal ambulation in the house. poor appetite/1 meal a day, abdominal pain; unable to bath herself They did not have the money to go to the Dr. or get insurance. Was hoping to be able to get Medicare at 64. is attempting to apply for medicaid Patient had stopped taking blood pressure medicine (3 meds) 5 years ago. Stopped checking blood sugars several years ago. Oncology Consult pending. Discussed option of comfort care and allow natural and peaceful . Pierre will discuss with family. Patient likely not a candidate for aggressive work-up and surgery. Plan: DNR Review tomorrow and call for update and discussion Pierre Contact; [phone] JOSÉ ANTONIO YENUG Apr 26, 2019 13:49
--- NOTE | 2019-04-26 13:53 | PDOC ---
SURGICAL PROGRESS NOTE Subjective Pt intubated, non responsive Vital Signs Vital Signs Date Time Temp Pulse Resp B/P (MAP) Pulse Ox O2 Delivery O2 Flow Rate FiO2 04/26/19 13:00 98 26 107/67 (80) 95 Ventilator 04/26/19 12:00 101.4 101.4 I&O Intake and Output 04/26/19 06:59 Intake Total 2073.32 ml Output Total 860 ml Balance 1213.32 ml IV Total 2073.32 ml Output Urine Total 860 ml PATIENT HAS A GUTIÉRREZ: Yes General: No acute distress Abdomen: Soft, No tenderness, Other (non reducible hernia) Labs Laboratory Tests Test 04/24/19 17:03 04/25/19 00:04 04/25/19 06:16 04/25/19 09:25 Glucose (Fingerstick) 305 mg/dL (70-99) 315 mg/dL (70-99) 298 mg/dL (70-99) O2 Saturation 98 % (92-99) Arterial Blood pH 7.46 (7.35-7.45) Arterial Blood pCO2 at Patient Temp 27 mmHg (35-46) Arterial Blood pO2 at Patient Temp 104 mmHg (65-108) Arterial Blood HCO3 19 mmol/L (21-28) Arterial Blood Base Excess -4 mmol/L (-3-3) FiO2 40 Test 04/25/19 09:30 04/25/19 12:16 04/25/19 17:27 04/26/19 05:15 White Blood Count 11.2 x10^3/uL (4.0-11.0) 10.4 x10^3/uL (4.0-11.0) Red Blood Count 4.49 x10^6/uL (3.50-5.40) 4.31 x10^6/uL (3.50-5.40) Hemoglobin 10.1 g/dL (12.0-15.5) 9.8 g/dL (12.0-15.5) Hematocrit 31.8 % (36.0-47.0) 30.6 % (36.0-47.0) Mean Corpuscular Volume 71 fL (79-100) 71 fL (79-100) Mean Corpuscular Hemoglobin 22 pg (25-35) 23 pg (25-35) Mean Corpuscular Hemoglobin Concent 32 g/dL (31-37) 32 g/dL (31-37) Red Cell Distribution Width 18.7 % (11.5-14.5) 18.9 % (11.5-14.5) Platelet Count 54 x10^3/uL (140-400) 52 x10^3/uL (140-400) Neutrophils (%) (Auto) 88 % (31-73) 89 % (31-73) Lymphocytes (%) (Auto) 8 % (24-48) 7 % (24-48) Monocytes (%) (Auto) 3 % (0-9) 3 % (0-9) Eosinophils (%) (Auto) 0 % (0-3) 0 % (0-3) Basophils (%) (Auto) 1 % (0-3) 0 % (0-3) Neutrophils # (Auto) 9.9 x10^3/uL (1.8-7.7) 9.2 x10^3/uL (1.8-7.7) Lymphocytes # (Auto) 0.8 x10^3/uL (1.0-4.8) 0.8 x10^3/uL (1.0-4.8) Monocytes # (Auto) 0.4 x10^3/uL (0.0-1.1) 0.3 x10^3/uL (0.0-1.1) Eosinophils # (Auto) 0.0 x10^3/uL (0.0-0.7) 0.0 x10^3/uL (0.0-0.7) Basophils # (Auto) 0.1 x10^3/uL (0.0-0.2) 0.0 x10^3/uL (0.0-0.2) Sodium Level 142 mmol/L (136-145) 144 mmol/L (136-145) Potassium Level 4.2 mmol/L (3.5-5.1) 4.6 mmol/L (3.5-5.1) Chloride Level 107 mmol/L (98-107) 110 mmol/L (98-107) Carbon Dioxide Level 23 mmol/L (21-32) 23 mmol/L (21-32) Anion Gap 12 (6-14) 11 (6-14) Blood Urea Nitrogen 54 mg/dL (7-20) 50 mg/dL (7-20) Creatinine 0.8 mg/dL (0.6-1.0) 0.9 mg/dL (0.6-1.0) Estimated GFR (Cockcroft-Gault) 72.2 63.0 BUN/Creatinine Ratio 68 (6-20) Glucose Level 331 mg/dL (70-99) 385 mg/dL (70-99) Calcium Level 8.4 mg/dL (8.5-10.1) 8.5 mg/dL (8.5-10.1) Phosphorus Level 1.4 mg/dL (2.6-4.7) 1.5 mg/dL (2.6-4.7) Magnesium Level 2.0 mg/dL (1.8-2.4) 1.9 mg/dL (1.8-2.4) Total Bilirubin 1.3 mg/dL (0.2-1.0) Aspartate Amino Transf (AST/SGOT) 44 U/L (15-37) Alanine Aminotransferase (ALT/SGPT) 28 U/L (14-59) Alkaline Phosphatase 134 U/L (46-116) Total Protein 5.7 g/dL (6.4-8.2) Albumin 2.4 g/dL (3.4-5.0) Albumin/Globulin Ratio 0.7 (1.0-1.7) Glucose (Fingerstick) 303 mg/dL (70-99) 275 mg/dL (70-99) Triglycerides Level 262 mg/dL (0-150) Test 04/26/19 08:00 04/26/19 08:17 04/26/19 08:20 04/26/19 12:00 Urine Collection Type Unknown Urine Color Yani Urine Clarity Clear Urine pH 5.5 Urine Specific [place] >=1.030 Urine Protein 30 mg/dL (NEG-TRACE) Urine Glucose (UA) >=1000 mg/dL (NEG) Urine Ketones (Stick) Negative mg/dL (NEG) Urine Blood Large (NEG) Urine Nitrite Negative (NEG) Urine Bilirubin Negative (NEG) Urine Urobilinogen Dipstick 1.0 mg/dL (0.2 mg/dL) Urine Leukocyte Esterase Small (NEG) Urine RBC Tntc /HPF (0-2) Urine WBC 5-10 /HPF (0-4) Urine Bacteria 0 /HPF (0-FEW) O2 Saturation 96 % (92-99) Arterial Blood pH 7.47 (7.35-7.45) Arterial Blood pCO2 at Patient Temp 27 mmHg (35-46) Arterial Blood pO2 at Patient Temp 81 mmHg (65-108) Arterial Blood HCO3 19 mmol/L (21-28) Arterial Blood Base Excess -4 mmol/L (-3-3) FiO2 35 Glucose (Fingerstick) 387 mg/dL (70-99) 369 mg/dL (70-99) Lactic Acid Level 3.1 mmol/L (0.4-2.0) Laboratory Tests Test 04/25/19 17:27 04/26/19 05:15 04/26/19 08:00 04/26/19 08:17 Glucose (Fingerstick) 275 mg/dL (70-99) 387 mg/dL (70-99) White Blood Count 10.4 x10^3/uL (4.0-11.0) Red Blood Count 4.31 x10^6/uL (3.50-5.40) Hemoglobin 9.8 g/dL (12.0-15.5) Hematocrit 30.6 % (36.0-47.0) Mean Corpuscular Volume 71 fL (79-100) Mean Corpuscular Hemoglobin 23 pg (25-35) Mean Corpuscular Hemoglobin Concent 32 g/dL (31-37) Red Cell Distribution Width 18.9 % (11.5-14.5) Platelet Count 52 x10^3/uL (140-400) Neutrophils (%) (Auto) 89 % (31-73) Lymphocytes (%) (Auto) 7 % (24-48) Monocytes (%) (Auto) 3 % (0-9) Eosinophils (%) (Auto) 0 % (0-3) Basophils (%) (Auto) 0 % (0-3) Neutrophils # (Auto) 9.2 x10^3/uL (1.8-7.7) Lymphocytes # (Auto) 0.8 x10^3/uL (1.0-4.8) Monocytes # (Auto) 0.3 x10^3/uL (0.0-1.1) Eosinophils # (Auto) 0.0 x10^3/uL (0.0-0.7) Basophils # (Auto) 0.0 x10^3/uL (0.0-0.2) Sodium Level 144 mmol/L (136-145) Potassium Level 4.6 mmol/L (3.5-5.1) Chloride Level 110 mmol/L (98-107) Carbon Dioxide Level 23 mmol/L (21-32) Anion Gap 11 (6-14) Blood Urea Nitrogen 50 mg/dL (7-20) Creatinine 0.9 mg/dL (0.6-1.0) Estimated GFR (Cockcroft-Gault) 63.0 Glucose Level 385 mg/dL (70-99) Calcium Level 8.5 mg/dL (8.5-10.1) Phosphorus Level 1.5 mg/dL (2.6-4.7) Magnesium Level 1.9 mg/dL (1.8-2.4) Triglycerides Level 262 mg/dL (0-150) Urine Collection Type Unknown Urine Color Yani Urine Clarity Clear Urine pH 5.5 Urine Specific [place] >=1.030 Urine Protein 30 mg/dL (NEG-TRACE) Urine Glucose (UA) >=1000 mg/dL (NEG) Urine Ketones (Stick) Negative mg/dL (NEG) Urine Blood Large (NEG) Urine Nitrite Negative (NEG) Urine Bilirubin Negative (NEG) Urine Urobilinogen Dipstick 1.0 mg/dL (0.2 mg/dL) Urine Leukocyte Esterase Small (NEG) Urine RBC Tntc /HPF (0-2) Urine WBC 5-10 /HPF (0-4) Urine Bacteria 0 /HPF (0-FEW) O2 Saturation 96 % (92-99) Arterial Blood pH 7.47 (7.35-7.45) Arterial Blood pCO2 at Patient Temp 27 mmHg (35-46) Arterial Blood pO2 at Patient Temp 81 mmHg (65-108) Arterial Blood HCO3 19 mmol/L (21-28) Arterial Blood Base Excess -4 mmol/L (-3-3) FiO2 35 Test 04/26/19 08:20 04/26/19 12:00 Lactic Acid Level 3.1 mmol/L (0.4-2.0) Glucose (Fingerstick) 369 mg/dL (70-99) Problem List Problems Medical Problems: (1) Diabetes Status: Acute (2) Fall Status: Acute (3) Severe sepsis Status: Acute (4) UTI (urinary tract infection) Status: Acute (5) Weakness Status: Acute Assessment/Plan pt poor surgical candidate cont supportive care NATE SHORT MD Apr 26, 2019 13:53
[2019-04-26] MEDS: TPN PER PHARMACY MC PRN ×2 (14:10→14:25)
--- NOTE | 2019-04-26 14:26 | NUR ---
Pharmacy TPN Dosing Note S: XENA LEE is a 63 year old F Currently receiving Central Continuous TPN started 04/25/19 B:Pertinent PMH: SBO Height: 5 feet, 3 inches Weight: 129.331777 kg Current diet: NPO LABS: Sodium: 144 Potassium: 4.6 Chloride: 110 Calcium: 8.5 Corrected Calcium: 9.78 Magnesium: 1.9 CO2: 23 SCr: 0.9 Glucose: 369-387 Albumin: 2.4 AST: 44 ALT: 28 TPN FORMULA: TPN TYPE: Central Continuous AMINO ACIDS: 115 gm DEXTROSE: 250 gm LIPIDS: 30 gm SODIUM CHLORIDE: . mEq SODIUM ACETATE: 90 mEq SODIUM PHOSPHATE: 10 mmol POTASSIUM CHLORIDE: 50 mEq POTASSIUM ACETATE: mEq POTASSIUM PHOSPHATE: 15 mmol MAGNESIUM: 10 mEq CALCIUM: 10 mEq INSULIN: 20 units MULTIPLE VITAMIN: 10 ml TRACE ELEMENTS: 1 ml(s) TPN PLAN: BG all out of range with 18 units ssi given; added 10 add'l units regular insulin to bag, 20 units total. Pt's phos continues to be low. Gave 30 mmol bolus, added 10 mmol Na phos. Converted NaCl to NaAc. Labs in AM. R: Continue TPN ABOVE. Will monitor electrolytes, glucose, and tolerance to TPN. LIBRADO JOYNER [facility], 04/26/19 [id number]
[2019-04-26] MEDS ORDERED: SODIUM PHOSPHATE 30 MMOL in IV DEXTROSE 5% 250 ML IV ONE (15:00)
[2019-04-26] MEDS: IV NORMAL SALINE 1000ML BAG 1,000 ML IV SCH (18:17)
[2019-04-26] MEDS ORDERED: [UNRECOGNIZED DRUG - OTHER] IV SCH ×12 (22:00)
[2019-04-26] MEDS ORDERED: AMINO ACID IV SCH ×12 (22:00)
[2019-04-26] MEDS ORDERED: TOTAL PARENTERAL NUTRITION IV SCH ×12 (22:00)
[2019-04-26] MEDS ORDERED: DEXTROSE 70% IV SCH ×12 (22:00)
--- NOTE | 2019-04-26 22:44 | CONS ---
DATE OF CONSULTATION: REASON FOR CONSULTATION: Evaluate very long mildly mycotic nails of all 10 toenails. Review of record was done extensively. Operative procedures having been done. The patient is on respirator. She has cirrhosis with some venous hypertension and other multiple medical problems. Medications and allergies are all reviewed. FINDINGS: On examination: DERMAL: The patient has elongated nails that are mildly mycotic slightly incurvated. No break in the skin is noted. No abscesses are noted. VASCULAR: Pedal pulses are diminished, extensive edema of the feet and legs. Hard to palpate pedal pulses. Absence of hair growth, slight coolness to the skin at the distal tips of the toes. Capillary filling time is increased, but adequate. NEUROLOGIC: Unable to assess due to the fact she is on ventilator, nonresponsive. MUSCULOSKELETAL: No significant bunion or hammertoe deformities that are contributory to her problem. ASSESSMENT: 1. Elongated mildly mycotic nails of all 10 toenails. 2. Diminished vascularity. 3. Multiple medical problems. PLAN: Debridement of all mycotic nails. Follow up on an as needed basis. Hopefully, this will give her some comfort. LUCIO ANDREWS DPM DR: STACEY/jonnathan JOB#: [id number] / [id number]
[2019-04-27] VITALS (24 sets, daily range): BP systolic 86–144; BP diastolic 51–77
[2019-04-27] MEDS: MEROPENEM 500 MG in IV NORMAL SALINE 50ML 50 ML IV SCH ×4 (00:24→17:52)
[2019-04-27] MEDS ORDERED: INSULIN LISPRO 300 UNITS/3 ML VIAL. SQ ONE ×2 (02:30→11:45)
[2019-04-27 05:53] LABS: BASO % 0 % (0-3); EOS # 0.1 x10^3/uL (0.0-0.7); EOS % 0 % (0-3); HEMATOCRIT 34.5 % (36.0-47.0); HEMOGLOBIN 10.6 g/dL (12.0-15.5); LYMPH # 1.4 x10^3/uL (1.0-4.8); LYMPH % 7 % (24-48); MEAN CORPUSCULAR HEMOGLOBIN 22 pg (25-35); MEAN CORPUSCULAR HGB CONC 31 g/dL (31-37); MEAN CORPUSCULAR VOLUME 72 fL (79-100); MONO # 0.9 x10^3/uL (0.0-1.1); MONO % 5 % (0-9); NEUT # 18.1 x10^3/uL (1.8-7.7); NEUT % 88 % (31-73); PLATELET COUNT 78 x10^3/uL (140-400); RED BLOOD COUNT 4.79 x10^6/uL (3.50-5.40); WHITE BLOOD COUNT 20.5 x10^3/uL (4.0-11.0)
[2019-04-27 05:54] LABS: CALCIUM 8.8 mg/dL (8.5-10.1); GFR 55.8; POTASSIUM 4.6 mmol/L (3.5-5.1)
[2019-04-27] MEDS: METOPROLOL TARTRATE 5 MG/5 ML VIAL. IVP SCH ×4 (06:24→17:52)
--- NOTE | 2019-04-27 07:11 | PDOC ---
Infectious Disease Note Subjective: Subjective Remains orally intubated/vent d/w rn remains febrile remains on same vent settings ROS: ROS d/w rn Vital Signs: Vital Signs Vital Signs Date Time Temp Pulse Resp B/P (MAP) Pulse Ox O2 Delivery O2 Flow Rate FiO2 04/27/19 06:24 88 113/56 04/27/19 06:00 33 98 Ventilator 04/27/19 04:00 100.8 100.8 Physical Exam: PHYSICAL EXAM GENERAL: Orally intubated, sedated, mitts HEENT: Pupils equal, small. ETT/ OGT with green colored output NECK: Supple. Left EJ LUNGS: Clear. HEART: S1, S2 regular. ABDOMEN: Soft, Umbilical hernia present. Large pannus present. EXTREMITIES: Both lower extremities have venous insufficiency, stasis dermatitis on both the legs posteriorly. Trace edema SKIN: Warm to touch. sacral wound NEUROLOGIC: Sedated on vent RIJ clean Medications: Inpatient Meds: Current Medications Medications (Trade) Dose Ordered Sig/[place] Start Time Stop Time Status Last Admin Dose Admin Acetaminophen (Tylenol Supp) 650 mg PRN Q6HRS PRN 04/21/19 16:45 04/23/19 20:56 650 MG Acetaminophen (Tylenol) 650 mg PRN Q6HRS PRN 04/22/19 00:15 Cancel Albumin Human 100 ml @ 100 mls/hr TID 04/22/19 14:00 04/24/19 09:59 DC 04/24/19 08:10 100 MLS/HR Amino Acids/ Glycerin/ Electrolytes 1,000 ml @ 80 mls/hr [id number] 04/23/19 14:00 04/25/19 21:59 DC 04/25/19 17:31 80 MLS/HR Atropine Sulfate (ATROPINE 0.5mg SYRINGE) 0.5 mg PRN Q5MIN PRN 04/20/19 23:30 Ceftriaxone Sodium (Rocephin) 1 gm 1X ONCE 04/19/19 18:45 04/19/19 18:46 DC 04/19/19 19:17 1 GM Daptomycin 720 mg/ Sodium Chloride 50 ml @ 100 mls/hr ONCE ONCE 04/22/19 16:00 04/22/19 16:29 DC 04/22/19 15:06 100 MLS/HR Daptomycin 760 mg/ Sodium Chloride 50 ml @ 100 mls/hr ONCE ONCE 04/23/19 13:00 04/23/19 13:29 DC 04/23/19 13:02 100 MLS/HR Daptomycin 780 mg/ Sodium Chloride 50 ml @ 100 mls/hr Q24H 04/26/19 10:00 04/26/19 10:36 100 MLS/HR Dexmedetomidine HCl 400 mcg/ Sodium Chloride 100 ml @ 0 mls/hr CONT PRN 04/20/19 23:30 04/26/19 22:59 14.1 MLS/HR Dextrose 250 ml PRN Q15MIN PRN 04/19/19 19:30 Dextrose (Dextrose 50%-Water Syringe) 12.5 gm PRN Q15MIN PRN 04/19/19 19:30 Enoxaparin Sodium (Lovenox 60mg Syringe) 60 mg Q12HR 04/21/19 21:00 04/22/19 15:40 DC 04/21/19 20:45 60 MG Epinephrine HCl 4 mg/Sodium Chloride 254 ml @ 42.935 mls/ hr CONT PRN 04/21/19 05:00 Fentanyl Citrate 30 ml @ 0 mls/hr CONT PRN PRN 04/20/19 17:15 04/26/19 16:38 1.25 MLS/HR Info (Tpn Per Pharmacy) 1 each PRN DAILY PRN 04/25/19 11:15 04/26/19 14:25 1 EACH Insulin Human Lispro (HumaLOG) 20 units 1X ONCE 04/27/19 02:30 04/27/19 02:31 DC 04/27/19 02:38 20 UNITS Lactic Acid (Lac-Hydrin) 1 gauri BID 04/20/19 21:00 04/26/19 22:12 1 GAURI Lidocaine HCl (Xylocaine 2% Topical 5gm Tube) 5 gauri STK-MED ONCE 04/19/19 12:00 04/21/19 10:21 DC Lorazepam (Ativan Inj) 1 mg PRN 1X ONCE 04/20/19 16:15 04/20/19 16:16 DC Meropenem 500 mg/ Sodium Chloride 50 ml @ 100 mls/hr Q6HRS 04/25/19 12:00 04/27/19 06:24 100 MLS/HR Metoprolol Tartrate (Lopressor Vial) 2.5 mg Q6HRS 04/20/19 14:30 04/27/19 06:24 2.5 MG Metoprolol Tartrate (Lopressor) 25 mg BID 04/20/19 14:00 04/20/19 13:34 DC Micafungin Sodium 100 mg/Dextrose 100 ml @ 100 mls/hr Q24H 04/26/19 08:30 04/26/19 08:20 100 MLS/HR Midazolam HCl 100 ml @ 5 mls/hr CONT PRN 04/20/19 17:15 04/24/19 03:54 5 MLS/HR Midazolam HCl (Versed) 5 mg 1X ONCE 04/20/19 17:15 04/20/19 17:19 DC 04/20/19 17:38 5 MG Naloxone HCl (Narcan) 0.4 mg PRN Q2MIN PRN 04/20/19 17:15 Norepinephrine Bitartrate 250 ml @ 21.129 mls/ hr CONT PRN 04/20/19 17:30 UNV Ondansetron HCl (Zofran) 4 mg PRN Q6HRS PRN 04/20/19 10:00 04/20/19 16:04 4 MG Pantoprazole Sodium (PROTONIX VIAL for IV PUSH) 40 mg DAILYAC 04/20/19 12:30 04/26/19 08:08 40 MG Piperacillin Sod/ Tazobactam Sod 3.375 gm/Sodium Chloride 50 ml @ 100 mls/hr Q6HRS 04/20/19 18:00 04/25/19 07:48 DC 04/25/19 06:21 100 MLS/HR Potassium Chloride/Water 100 ml @ 100 mls/hr Q1H 04/20/19 12:00 04/20/19 15:59 DC 04/21/19 07:22 100 MLS/HR Potassium Phosphate 15 mmol/ Sodium Chloride 255 ml @ 127.5 mls/ hr 1X ONCE 04/25/19 14:00 04/25/19 15:59 DC 04/25/19 15:06 127.5 MLS/HR Potassium Chloride (Klor-Con) 40 meq 1X ONCE 04/20/19 11:30 04/20/19 11:31 Cancel Propofol 100 ml @ 1.69 mls/hr CONT PRN 04/20/19 17:15 04/20/19 17:36 6.761 MLS/HR Rocuronium [place] (Zemuron) 50 mg STK-MED ONCE 04/20/19 18:00 04/21/19 09:09 DC Sodium Acetate 90 meq/Sodium Phosphate 10 mmol/ Potassium Chloride 50 meq/ Potassium Phosphate 15 mmol/ Magnesium Sulfate 10 meq/Calcium Gluconate 10 meq/ Multivitamins 10 ml/Chromium/ Copper/Manganese/ Seleni/Zn 1 ml/ Insulin Human Regular 20 unit/ Total Parenteral Nutrition/Amino Acids/Dextro... 1,512 ml @ 63 mls/hr TPN CONT 04/26/19 22:00 04/27/19 21:59 04/26/19 22:12 63 MLS/HR Sodium Bicarbonate (Sodium Bicarb Adult 8.4% Syr) 50 meq 1X ONCE 04/25/19 10:45 04/25/19 10:46 DC 04/25/19 12:19 50 MEQ Sodium Chloride 1,000 ml @ 1,000 mls/hr 1X ONCE 04/26/19 11:00 04/26/19 11:59 DC 04/26/19 11:13 1,000 MLS/HR Sodium Chloride 90 meq/Potassium Chloride 50 meq/ Potassium Phosphate 15 mmol/ Magnesium Sulfate 10 meq/Calcium Gluconate 10 meq/ Multivitamins 10 ml/Chromium/ Copper/Manganese/ Seleni/Zn 1 ml/ Insulin Human Regular 10 unit/ Total Parenteral Nutrition/Amino Acids/Dextrose/ Fat Emulsion Intravenous 1,512 ml @ 63 mls/hr TPN CONT 04/25/19 22:00 04/26/19 21:59 DC 04/25/19 23:10 63 MLS/HR Sodium Phosphate 30 mmol/Dextrose 260 ml @ 65 mls/hr 1X ONCE 04/26/19 15:00 04/26/19 18:59 DC 04/26/19 15:11 65 MLS/HR Succinylcholine Chloride (Anectine) 80 mg 1X ONCE 04/20/19 17:30 04/20/19 17:31 DC 04/20/19 17:36 80 MG Vancomycin HCl (Vanco Per Pharmacy) 1 each PRN DAILY PRN 04/19/19 19:15 04/21/19 09:40 DC 04/20/19 14:29 1 EACH Vancomycin HCl (Vancomycin Trough Level) 1 each 1X ONCE 04/21/19 07:30 04/21/19 07:31 DC 04/21/19 10:49 1 EACH Vancomycin HCl 1.5 gm/Sodium Chloride 500 ml @ 250 mls/hr Q12H 04/20/19 08:00 04/21/19 09:40 DC 04/20/19 20:04 250 MLS/HR Vancomycin HCl 2 gm/Sodium Chloride 500 ml @ 250 mls/hr 1X ONCE 04/19/19 19:15 04/19/19 21:14 DC 04/19/19 20:01 250 MLS/HR Vasopressin 40 unit/Dextrose 102 ml @ 6 mls/hr CONT PRN 04/21/19 04:00 04/24/19 15:38 6 MLS/HR Labs: Lab Laboratory Tests Test 04/26/19 08:00 04/26/19 08:17 04/26/19 08:20 04/26/19 12:00 Urine Collection Type Unknown Urine Color Yani Urine Clarity Clear Urine pH 5.5 Urine Specific [place] >=1.030 Urine Protein 30 mg/dL (NEG-TRACE) Urine Glucose (UA) >=1000 mg/dL (NEG) Urine Ketones (Stick) Negative mg/dL (NEG) Urine Blood Large (NEG) Urine Nitrite Negative (NEG) Urine Bilirubin Negative (NEG) Urine Urobilinogen Dipstick 1.0 mg/dL (0.2 mg/dL) Urine Leukocyte Esterase Small (NEG) Urine RBC Tntc /HPF (0-2) Urine WBC 5-10 /HPF (0-4) Urine Bacteria 0 /HPF (0-FEW) O2 Saturation 96 % (92-99) Arterial Blood pH 7.47 (7.35-7.45) Arterial Blood pCO2 at Patient Temp 27 mmHg (35-46) Arterial Blood pO2 at Patient Temp 81 mmHg (65-108) Arterial Blood HCO3 19 mmol/L (21-28) Arterial Blood Base Excess -4 mmol/L (-3-3) FiO2 35 Glucose (Fingerstick) 387 mg/dL (70-99) 369 mg/dL (70-99) Lactic Acid Level 3.1 mmol/L (0.4-2.0) Test 04/26/19 14:50 04/26/19 18:19 04/27/19 00:40 04/27/19 05:26 Lactic Acid Level 3.8 mmol/L (0.4-2.0) Glucose (Fingerstick) 350 mg/dL (70-99) 384 mg/dL (70-99) 340 mg/dL (70-99) Test 04/27/19 05:30 White Blood Count 20.5 x10^3/uL (4.0-11.0) Red Blood Count 4.79 x10^6/uL (3.50-5.40) Hemoglobin 10.6 g/dL (12.0-15.5) Hematocrit 34.5 % (36.0-47.0) Mean Corpuscular Volume 72 fL (79-100) Mean Corpuscular Hemoglobin 22 pg (25-35) Mean Corpuscular Hemoglobin Concent 31 g/dL (31-37) Red Cell Distribution Width 19.0 % (11.5-14.5) Platelet Count 78 x10^3/uL (140-400) Neutrophils (%) (Auto) 88 % (31-73) Lymphocytes (%) (Auto) 7 % (24-48) Monocytes (%) (Auto) 5 % (0-9) Eosinophils (%) (Auto) 0 % (0-3) Basophils (%) (Auto) 0 % (0-3) Neutrophils # (Auto) 18.1 x10^3/uL (1.8-7.7) Lymphocytes # (Auto) 1.4 x10^3/uL (1.0-4.8) Monocytes # (Auto) 0.9 x10^3/uL (0.0-1.1) Eosinophils # (Auto) 0.1 x10^3/uL (0.0-0.7) Basophils # (Auto) 0.0 x10^3/uL (0.0-0.2) Sodium Level 147 mmol/L (136-145) Potassium Level 4.6 mmol/L (3.5-5.1) Chloride Level 112 mmol/L (98-107) Carbon Dioxide Level 22 mmol/L (21-32) Anion Gap 13 (6-14) Blood Urea Nitrogen 57 mg/dL (7-20) Creatinine 1.0 mg/dL (0.6-1.0) Estimated GFR (Cockcroft-Gault) 55.8 Glucose Level 376 mg/dL (70-99) Calcium Level 8.8 mg/dL (8.5-10.1) Phosphorus Level 2.0 mg/dL (2.6-4.7) Magnesium Level 2.0 mg/dL (1.8-2.4) Micro RUN DATE: 04/23/19 PAGE 1 RUN TIME: 1777 [facility] [address] [place] [address] Jae Wright M.D., Manager Auto PATIENT: XENA LEE ACCT: [id number] LOC: 1 [facility] U: [id number] AGE/SX: 63/F ROOM: [facility] RE04/19/[address]: ASHLY SIEGEL MD : 1955 BED: 1 DIS: STATUS: ADM IN TLOC: SPEC #: [id number] WEST: 04/19/19 STATUS: COMP REQ #: [id number] RECD: 04/19/[address]: BENJIE DE LOS SANTOS MD SOURCE: BLOOD ENTR: 04/20/19-1544 [facility] : GEOVANNA LUEVANO [facility]: ORDERED: DEWEY CULT - LC Procedure Result BLOOD CULTURE LC Final Preliminary report Final report BLD CULT RESULT 1 Final Comment Staphylococcus species Performed at: DA - [facility] [address], [place], [place] [id number] Food Preparation Worker: BHARGAVI Smart MD, Phone: [phone] Staphylococcus epidermidis Based on susceptibility to oxacillin this isolate would be susceptible to: *Penicillinase-stable penicillins, such as: Cloxacillin, Dicloxacillin, Nafcillin *Beta-lactam combination agents, such as: Amoxicillin-clavulanic acid, Ampicillin-sulbactam, Piperacillin-tazobactam *Oral cephems, such as: Cefaclor, Cefdinir, Cefpodoxime, Cefprozil, Cefuroxime, Cephalexin, Loracarbef *Parenteral cephems, such as: Cefazolin, Cefepime, Cefotaxime, Cefotetan, Ceftaroline, Ceftizoxime, Ceftriaxone, Cefuroxime *Carbapenems, such as: Doripenem, Ertapenem, Imipenem, Meropenem ANTIMICROBIAL SUSCEPTIBILITY Final Comment S = Susceptible; I = Intermediate; R = Resistant P = Positive; N = Negative MICS are expressed in micrograms per mL Antibiotic RSLT#1 RSLT#2 RSLT#3 RSLT#4 Ciprofloxacin S<=0.5 Clindamycin S<=0.25 Erythromycin R>=8 Gentamicin S<=0.5 CONTINUED ON NEXT PAGE RUN DATE: 04/23/19 PAGE 2 RUN TIME: 8641 [facility] [address] [place] [address] Jae Wright M.D., Manager Auto SPEC: [id number] PATIENT: XENA LEE [id number] (Continued) Procedure Result ANTIMICROBIAL SUSCEPTIBILITY Final (continued) Levofloxacin S<=0.12 Linezolid S =1 Nitrofurantoin S<=16 Oxacillin S<=0.25 Penicillin R>=0.5 Quinupristin/Dalfopristin S<=0.25 Rifampin S<=0.5 Tetracycline S<=1 Trimethoprim/Sulfa S<=10 Vancomycin S =1 Performed at: AL[place] - [facility] [address], [place], [place] [id number] Food Preparation Worker: BHARGAVI Smart MD, Phone: [phone] Objective: Assessment: MSSA Bacteremia 04/19 08/17 BOTTLES repeat bc neg so far Sepsis from above febrile again Leukocytosis Acute resp failure multifactorial, Pneumonia ,likely aspiration Lactic acidosis. Urinary tract infection versus hematuria. UC no growth Poor personal hygiene. Sacral decubitus. venous stasis with weeping lesions ble Status post fall. Abdominal pain. Large adenexal mass,lymphadenopathy not a surgical candidate Transaminitis,Chronic liver disease Dilated gallbladder with gallbladder sludge and wall thickening, Small upper abdominal ascites. Splenomegaly. Anemia ,Thrombocytopenia mycotic toe nails Umbilical hernia w/ SBO, Plan: Plan of Care cont merrem 04/26 off Zosyn due to thrombocytopenia 04/25 cont daptomycin and micafungin pt is not a surgical candidate F/u BC 04/21 ; neg so far Supportive care Overall prognosis very poor Palliative on case d/w Nursing staff CARLITOS VILLASEÑOR MD Apr 27, 2019 07:11
[2019-04-27] MEDS: PANTOPRAZOLE IV PUSH 40 MG VIAL. IVP SCH (07:39)
[2019-04-27] MEDS: MICAFUNGIN 100 MG in IV DEXTROSE 5% 100ML 100 ML IV SCH (08:54)
[2019-04-27] MEDS: INSULIN LISPRO 300 UNITS/3 ML VIAL. SQ SCH ×4 (08:58→21:06)
[2019-04-27] MEDS: AMMONIUM LACTATE 12% TOPICAL LOTION 226GM BOTTLE. TP SCH ×2 (09:01→21:06)
[2019-04-27 09:03] LABS: BASE EXCESS ABG -3 mmol/L (-3-3); HCO3 ABG 20 mmol/L (21-28); PCO2 ABG 29 mmHg (35-46); PO2 ABG 87 mmHg (65-108); SAT O2 ABG 97 % (92-99)
[2019-04-27 09:12] LABS: FIO2 ABG 35
[2019-04-27] MEDS: DAPTOMYCIN IV SCH (10:11)
[2019-04-27] MEDS: NORMAL SALINE IV SCH (10:11)
[2019-04-27] MEDS ORDERED: SODIUM BICARB ADULT 8.4% 50 MEQ/50 ML DISP.SYRIN. IV ONE (10:15)
[2019-04-27] MEDS: ACETAMINOPHEN 650 MG SUPP.RECT. PR PRN (11:44)
--- NOTE | 2019-04-27 11:50 | PDOC ---
SURGICAL PROGRESS NOTE Subjective Pt intubated, does move some Vital Signs Vital Signs Date Time Temp Pulse Resp B/P (MAP) Pulse Ox O2 Delivery O2 Flow Rate FiO2 04/27/19 11:30 94 131/76 04/27/19 10:11 32 98 Ventilator 04/27/19 08:00 98.0 98.0 I&O Intake and Output 04/27/19 06:59 Intake Total 3158.14 ml Output Total 1260 ml Balance 1898.14 ml IV Total 3158.14 ml Output Urine Total 1160 ml Gastric Drainage Total 100 ml Abdomen: Soft, No tenderness, Other (palpable hernia) Labs Laboratory Tests Test 04/25/19 12:16 04/25/19 17:27 04/26/19 05:15 04/26/19 08:00 Glucose (Fingerstick) 303 mg/dL (70-99) 275 mg/dL (70-99) White Blood Count 10.4 x10^3/uL (4.0-11.0) Red Blood Count 4.31 x10^6/uL (3.50-5.40) Hemoglobin 9.8 g/dL (12.0-15.5) Hematocrit 30.6 % (36.0-47.0) Mean Corpuscular Volume 71 fL (79-100) Mean Corpuscular Hemoglobin 23 pg (25-35) Mean Corpuscular Hemoglobin Concent 32 g/dL (31-37) Red Cell Distribution Width 18.9 % (11.5-14.5) Platelet Count 52 x10^3/uL (140-400) Neutrophils (%) (Auto) 89 % (31-73) Lymphocytes (%) (Auto) 7 % (24-48) Monocytes (%) (Auto) 3 % (0-9) Eosinophils (%) (Auto) 0 % (0-3) Basophils (%) (Auto) 0 % (0-3) Neutrophils # (Auto) 9.2 x10^3/uL (1.8-7.7) Lymphocytes # (Auto) 0.8 x10^3/uL (1.0-4.8) Monocytes # (Auto) 0.3 x10^3/uL (0.0-1.1) Eosinophils # (Auto) 0.0 x10^3/uL (0.0-0.7) Basophils # (Auto) 0.0 x10^3/uL (0.0-0.2) Sodium Level 144 mmol/L (136-145) Potassium Level 4.6 mmol/L (3.5-5.1) Chloride Level 110 mmol/L (98-107) Carbon Dioxide Level 23 mmol/L (21-32) Anion Gap 11 (6-14) Blood Urea Nitrogen 50 mg/dL (7-20) Creatinine 0.9 mg/dL (0.6-1.0) Estimated GFR (Cockcroft-Gault) 63.0 Glucose Level 385 mg/dL (70-99) Calcium Level 8.5 mg/dL (8.5-10.1) Phosphorus Level 1.5 mg/dL (2.6-4.7) Magnesium Level 1.9 mg/dL (1.8-2.4) Triglycerides Level 262 mg/dL (0-150) Urine Collection Type Unknown Urine Color Yani Urine Clarity Clear Urine pH 5.5 Urine Specific [place] >=1.030 Urine Protein 30 mg/dL (NEG-TRACE) Urine Glucose (UA) >=1000 mg/dL (NEG) Urine Ketones (Stick) Negative mg/dL (NEG) Urine Blood Large (NEG) Urine Nitrite Negative (NEG) Urine Bilirubin Negative (NEG) Urine Urobilinogen Dipstick 1.0 mg/dL (0.2 mg/dL) Urine Leukocyte Esterase Small (NEG) Urine RBC Tntc /HPF (0-2) Urine WBC 5-10 /HPF (0-4) Urine Bacteria 0 /HPF (0-FEW) O2 Saturation 96 % (92-99) Arterial Blood pH 7.47 (7.35-7.45) Arterial Blood pCO2 at Patient Temp 27 mmHg (35-46) Arterial Blood pO2 at Patient Temp 81 mmHg (65-108) Arterial Blood HCO3 19 mmol/L (21-28) Arterial Blood Base Excess -4 mmol/L (-3-3) FiO2 35 Test 04/26/19 08:17 04/26/19 08:20 04/26/19 12:00 04/26/19 14:50 Glucose (Fingerstick) 387 mg/dL (70-99) 369 mg/dL (70-99) Lactic Acid Level 3.1 mmol/L (0.4-2.0) 3.8 mmol/L (0.4-2.0) Test 04/26/19 18:19 04/27/19 00:40 04/27/19 05:26 04/27/19 05:30 Glucose (Fingerstick) 350 mg/dL (70-99) 384 mg/dL (70-99) 340 mg/dL (70-99) White Blood Count 20.5 x10^3/uL (4.0-11.0) Red Blood Count 4.79 x10^6/uL (3.50-5.40) Hemoglobin 10.6 g/dL (12.0-15.5) Hematocrit 34.5 % (36.0-47.0) Mean Corpuscular Volume 72 fL (79-100) Mean Corpuscular Hemoglobin 22 pg (25-35) Mean Corpuscular Hemoglobin Concent 31 g/dL (31-37) Red Cell Distribution Width 19.0 % (11.5-14.5) Platelet Count 78 x10^3/uL (140-400) Neutrophils (%) (Auto) 88 % (31-73) Lymphocytes (%) (Auto) 7 % (24-48) Monocytes (%) (Auto) 5 % (0-9) Eosinophils (%) (Auto) 0 % (0-3) Basophils (%) (Auto) 0 % (0-3) Neutrophils # (Auto) 18.1 x10^3/uL (1.8-7.7) Lymphocytes # (Auto) 1.4 x10^3/uL (1.0-4.8) Monocytes # (Auto) 0.9 x10^3/uL (0.0-1.1) Eosinophils # (Auto) 0.1 x10^3/uL (0.0-0.7) Basophils # (Auto) 0.0 x10^3/uL (0.0-0.2) Sodium Level 147 mmol/L (136-145) Potassium Level 4.6 mmol/L (3.5-5.1) Chloride Level 112 mmol/L (98-107) Carbon Dioxide Level 22 mmol/L (21-32) Anion Gap 13 (6-14) Blood Urea Nitrogen 57 mg/dL (7-20) Creatinine 1.0 mg/dL (0.6-1.0) Estimated GFR (Cockcroft-Gault) 55.8 Glucose Level 376 mg/dL (70-99) Calcium Level 8.8 mg/dL (8.5-10.1) Phosphorus Level 2.0 mg/dL (2.6-4.7) Magnesium Level 2.0 mg/dL (1.8-2.4) Test 04/27/19 08:49 04/27/19 08:50 04/27/19 11:34 Glucose (Fingerstick) 347 mg/dL (70-99) 372 mg/dL (70-99) O2 Saturation 97 % (92-99) Arterial Blood pH 7.46 (7.35-7.45) Arterial Blood pCO2 at Patient Temp 29 mmHg (35-46) Arterial Blood pO2 at Patient Temp 87 mmHg (65-108) Arterial Blood HCO3 20 mmol/L (21-28) Arterial Blood Base Excess -3 mmol/L (-3-3) FiO2 35 Laboratory Tests Test 04/26/19 12:00 04/26/19 14:50 04/26/19 18:19 04/27/19 00:40 Glucose (Fingerstick) 369 mg/dL (70-99) 350 mg/dL (70-99) 384 mg/dL (70-99) Lactic Acid Level 3.8 mmol/L (0.4-2.0) Test 04/27/19 05:26 04/27/19 05:30 04/27/19 08:49 04/27/19 08:50 Glucose (Fingerstick) 340 mg/dL (70-99) 347 mg/dL (70-99) White Blood Count 20.5 x10^3/uL (4.0-11.0) Red Blood Count 4.79 x10^6/uL (3.50-5.40) Hemoglobin 10.6 g/dL (12.0-15.5) Hematocrit 34.5 % (36.0-47.0) Mean Corpuscular Volume 72 fL (79-100) Mean Corpuscular Hemoglobin 22 pg (25-35) Mean Corpuscular Hemoglobin Concent 31 g/dL (31-37) Red Cell Distribution Width 19.0 % (11.5-14.5) Platelet Count 78 x10^3/uL (140-400) Neutrophils (%) (Auto) 88 % (31-73) Lymphocytes (%) (Auto) 7 % (24-48) Monocytes (%) (Auto) 5 % (0-9) Eosinophils (%) (Auto) 0 % (0-3) Basophils (%) (Auto) 0 % (0-3) Neutrophils # (Auto) 18.1 x10^3/uL (1.8-7.7) Lymphocytes # (Auto) 1.4 x10^3/uL (1.0-4.8) Monocytes # (Auto) 0.9 x10^3/uL (0.0-1.1) Eosinophils # (Auto) 0.1 x10^3/uL (0.0-0.7) Basophils # (Auto) 0.0 x10^3/uL (0.0-0.2) Sodium Level 147 mmol/L (136-145) Potassium Level 4.6 mmol/L (3.5-5.1) Chloride Level 112 mmol/L (98-107) Carbon Dioxide Level 22 mmol/L (21-32) Anion Gap 13 (6-14) Blood Urea Nitrogen 57 mg/dL (7-20) Creatinine 1.0 mg/dL (0.6-1.0) Estimated GFR (Cockcroft-Gault) 55.8 Glucose Level 376 mg/dL (70-99) Calcium Level 8.8 mg/dL (8.5-10.1) Phosphorus Level 2.0 mg/dL (2.6-4.7) Magnesium Level 2.0 mg/dL (1.8-2.4) O2 Saturation 97 % (92-99) Arterial Blood pH 7.46 (7.35-7.45) Arterial Blood pCO2 at Patient Temp 29 mmHg (35-46) Arterial Blood pO2 at Patient Temp 87 mmHg (65-108) Arterial Blood HCO3 20 mmol/L (21-28) Arterial Blood Base Excess -3 mmol/L (-3-3) FiO2 35 Test 04/27/19 11:34 Glucose (Fingerstick) 372 mg/dL (70-99) Problem List Problems Medical Problems: (1) Diabetes Status: Acute (2) Fall Status: Acute (3) Severe sepsis Status: Acute (4) UTI (urinary tract infection) Status: Acute (5) Weakness Status: Acute Assessment/Plan umb hernia, not a surgical candidate agree with pursing palliative care NATE SHORT MD Apr 27, 2019 11:50
--- NOTE | 2019-04-27 11:52 | PDOC ---
[employer] PROGRESS NOTE Chief Complaint Chief Complaint Acute hypercapnic respiratory failure/ARDS Likely aspiration pneumonia Bilateral lung infiltrates RADHA SBO Chronic lymphedema of lower extremities Leukocytosis Protein/Calorie Malnutrition Bacteremia History of Present Illness History of Present Illness 04/27/19 Pt seen/examined in the ICU and currently on vent (vent settings: AC/20/500/35% 5PEEP) Dawn to BSD Pt still has ET tube, OG tube to LIS Sedated with fentanyl [employer] and precedex Glucose currently at 376 DW RN Sating at 100% 04/26/19 Pt seen and examined in ICU on vent (vent settings: AC/20/500/35% 5PEEP) pH 7.4 Dawn to BSD in place Pt still has ET tube; OG tube to LIS Sedated with fentanyl [employer] and precedex DW RN RN taking pt for CT of abdomen Had fever overnight; given NS 1000 cc bolus Glucose taken by RN; Current glucose: 369 Currently sat-ing at 99% Chart reviewed 04/25/19 Pt seen and examined in ICU on vent (vent settings: AC/20/500/40% Peep16) Pt has ET tube and OG tube to LIS Pt has dawn to BSD Sedated with precedex and fentanyl [employer] DW RN DW case aide chart reviewed Vitals/I&O Vitals/I&O: Vital Signs Date Time Temp Pulse Resp B/P (MAP) Pulse Ox O2 Delivery O2 Flow Rate FiO2 04/27/19 11:30 94 131/76 04/27/19 10:11 32 98 Ventilator 04/27/19 08:00 98.0 98.0 I & O 04/26/19 04/26/19 04/27/19 14:59 22:59 06:59 Intake Total 1000 ml 930.54 ml 1227.6 ml Output Total 480 ml 500 ml 280 ml Balance 520 ml 430.54 ml 947.6 ml Physical Exam Physical Exam: GENERAL: Orally intubated, sedated, mitts HEENT: Pupils equal, small. ETT/ OGT with green colored output NECK: Supple. Left EJ LUNGS: Clear. HEART: S1, S2 regular. ABDOMEN: Soft, Umbilical hernia present. Large pannus present. EXTREMITIES: Both lower extremities have venous insufficiency, stasis dermatitis on both the legs posteriorly. Trace edema SKIN: Warm to touch. sacral wound NEUROLOGIC: Sedated on vent RIJ clean General: No acute distress Heart: Regular rate, Other (distant heart tones ) Lungs: Other (deminished) Abdomen: Soft, No tenderness, Other (non reducible hernia) Extremities: Other (extensive lymphedema) Skin: No rashes, No significant lesion Labs Labs: Laboratory Tests Test 04/26/19 12:00 04/26/19 14:50 04/26/19 18:19 04/27/19 00:40 Glucose (Fingerstick) 369 mg/dL (70-99) 350 mg/dL (70-99) 384 mg/dL (70-99) Lactic Acid Level 3.8 mmol/L (0.4-2.0) Test 04/27/19 05:26 04/27/19 05:30 04/27/19 08:49 04/27/19 08:50 Glucose (Fingerstick) 340 mg/dL (70-99) 347 mg/dL (70-99) White Blood Count 20.5 x10^3/uL (4.0-11.0) Red Blood Count 4.79 x10^6/uL (3.50-5.40) Hemoglobin 10.6 g/dL (12.0-15.5) Hematocrit 34.5 % (36.0-47.0) Mean Corpuscular Volume 72 fL (79-100) Mean Corpuscular Hemoglobin 22 pg (25-35) Mean Corpuscular Hemoglobin Concent 31 g/dL (31-37) Red Cell Distribution Width 19.0 % (11.5-14.5) Platelet Count 78 x10^3/uL (140-400) Neutrophils (%) (Auto) 88 % (31-73) Lymphocytes (%) (Auto) 7 % (24-48) Monocytes (%) (Auto) 5 % (0-9) Eosinophils (%) (Auto) 0 % (0-3) Basophils (%) (Auto) 0 % (0-3) Neutrophils # (Auto) 18.1 x10^3/uL (1.8-7.7) Lymphocytes # (Auto) 1.4 x10^3/uL (1.0-4.8) Monocytes # (Auto) 0.9 x10^3/uL (0.0-1.1) Eosinophils # (Auto) 0.1 x10^3/uL (0.0-0.7) Basophils # (Auto) 0.0 x10^3/uL (0.0-0.2) Sodium Level 147 mmol/L (136-145) Potassium Level 4.6 mmol/L (3.5-5.1) Chloride Level 112 mmol/L (98-107) Carbon Dioxide Level 22 mmol/L (21-32) Anion Gap 13 (6-14) Blood Urea Nitrogen 57 mg/dL (7-20) Creatinine 1.0 mg/dL (0.6-1.0) Estimated GFR (Cockcroft-Gault) 55.8 Glucose Level 376 mg/dL (70-99) Calcium Level 8.8 mg/dL (8.5-10.1) Phosphorus Level 2.0 mg/dL (2.6-4.7) Magnesium Level 2.0 mg/dL (1.8-2.4) O2 Saturation 97 % (92-99) Arterial Blood pH 7.46 (7.35-7.45) Arterial Blood pCO2 at Patient Temp 29 mmHg (35-46) Arterial Blood pO2 at Patient Temp 87 mmHg (65-108) Arterial Blood HCO3 20 mmol/L (21-28) Arterial Blood Base Excess -3 mmol/L (-3-3) FiO2 35 Test 04/27/19 11:34 Glucose (Fingerstick) 372 mg/dL (70-99) Review of Systems Review of Systems: co weakness co SOB Assessment and Plan Assessmemt and Plan Problems Medical Problems: (1) Diabetes Status: Acute (2) Fall Status: Acute (3) Severe sepsis Status: Acute (4) UTI (urinary tract infection) Status: Acute (5) Weakness Status: Acute Assessment Acute hypercapnic respiratory failure/ARDS Likely aspiration pneumonia Bilateral lung infiltrates RADHA SBO Diabetes Mellitus Chronic lymphedema of lower extremities Leukocytosis Protein/Calorie Malnutrition Bacteremia Plan ICU monitoring Proceed with vent weaning Continue sedation with precedex and fentanyl [employer] Dawn to BSD Maintain OG to LIS sliding scale insulin Q4 20 Lantus Sub q24 hrs Accucheck Q4hr Prognosis guarded Trend labs DVT prophylaxis TPN Full code Appreciate subspecialty input Comment Review of Relevant I have reviewed the following items ashok (where applicable) has been applied. Medications: Current Medications Medications (Trade) Dose Ordered Sig/[place] Route PRN Reason Start Time Stop Time Status Last Admin Dose Admin Insulin Human Lispro (HumaLOG) 15 units 1X ONCE SQ 04/26/19 13:30 04/26/19 13:31 DC 04/26/19 13:30 Sodium Acetate 90 meq/Sodium Phosphate 10 mmol/ Potassium Chloride 50 meq/ Potassium Phosphate 15 mmol/ Magnesium Sulfate 10 meq/Calcium Gluconate 10 meq/ Multivitamins 10 ml/Chromium/ Copper/Manganese/ Seleni/Zn 1 ml/ Insulin Human Regular 20 unit/ Total Parenteral Nutrition/Amino Acids/Dextro... 1,512 ml @ 63 mls/hr TPN CONT IV 04/26/19 22:00 04/27/19 21:59 04/26/19 22:12 Sodium Phosphate 30 mmol/Dextrose 260 ml @ 65 mls/hr 1X ONCE IV 04/26/19 15:00 04/26/19 18:59 DC 04/26/19 15:11 Insulin Human Lispro (HumaLOG) 20 units 1X ONCE SQ 04/27/19 02:30 04/27/19 02:31 DC 04/27/19 02:38 Sodium Bicarbonate (Sodium Bicarb Adult 8.4% Syr) 50 meq 1X ONCE IV 04/27/19 10:15 04/27/19 10:16 DC 04/27/19 10:16 CHRIS PHILLIPS III DO Apr 27, 2019 11:52
--- NOTE | 2019-04-27 12:19 | PDOC ---
Objective: Objective: D/w nurse - coming to talk with Dr. Mari re: possible comfort care. Minimal bilious NG output. No stools, abdomen seems more firm. Vital Signs: Vital Signs Date Time Temp Pulse Resp B/P (MAP) Pulse Ox O2 Delivery O2 Flow Rate FiO2 04/27/19 11:58 20 98 Ventilator 04/27/19 11:30 94 131/76 04/27/19 08:00 98.0 98.0 Labs: Laboratory Tests Test 04/26/19 14:50 04/26/19 18:19 04/27/19 00:40 04/27/19 05:26 Lactic Acid Level 3.8 mmol/L Glucose (Fingerstick) 350 mg/dL 384 mg/dL 340 mg/dL Test 04/27/19 05:30 04/27/19 08:49 04/27/19 08:50 04/27/19 11:34 White Blood Count 20.5 x10^3/uL Red Blood Count 4.79 x10^6/uL Hemoglobin 10.6 g/dL Hematocrit 34.5 % Mean Corpuscular Volume 72 fL Mean Corpuscular Hemoglobin 22 pg Mean Corpuscular Hemoglobin Concent 31 g/dL Red Cell Distribution Width 19.0 % Platelet Count 78 x10^3/uL Neutrophils (%) (Auto) 88 % Lymphocytes (%) (Auto) 7 % Monocytes (%) (Auto) 5 % Eosinophils (%) (Auto) 0 % Basophils (%) (Auto) 0 % Neutrophils # (Auto) 18.1 x10^3/uL Lymphocytes # (Auto) 1.4 x10^3/uL Monocytes # (Auto) 0.9 x10^3/uL Eosinophils # (Auto) 0.1 x10^3/uL Basophils # (Auto) 0.0 x10^3/uL Sodium Level 147 mmol/L Potassium Level 4.6 mmol/L Chloride Level 112 mmol/L Carbon Dioxide Level 22 mmol/L Anion Gap 13 Blood Urea Nitrogen 57 mg/dL Creatinine 1.0 mg/dL Estimated GFR (Cockcroft-Gault) 55.8 Glucose Level 376 mg/dL Calcium Level 8.8 mg/dL Phosphorus Level 2.0 mg/dL Magnesium Level 2.0 mg/dL Glucose (Fingerstick) 347 mg/dL 372 mg/dL O2 Saturation 97 % Arterial Blood pH 7.46 Arterial Blood pCO2 at Patient Temp 29 mmHg Arterial Blood pO2 at Patient Temp 87 mmHg Arterial Blood HCO3 20 mmol/L Arterial Blood Base Excess -3 mmol/L FiO2 35 Imaging: CT A/P 04/26 IMPRESSION: Limited exam due to lack of IV contrast. 1. Bilateral lung bases consolidations, left more than right may be secondary to atelectasis or pneumonia. 2. Cirrhosis with evidence of portal venous hypertension. Stable small volume ascites. 3. Umbilical hernia containing focal loop of small bowel with resolution of previously seen dilated bowel loops. No imaging evidence of high-grade bowel obstruction. 4. Enlarged retroperitoneal and inguinal lymph nodes concerning for lymphoma or metastasis. 5. Omental nodularity suggests a metastasis or pneumatosis. 6. Left adnexal masslike lesion may be of ovarian origin or pedunculated fibroid. Nonemergent MRI of the pelvis with IV contrast recommended. PE: GEN: intubated LUNGS: vent ABD: no BS, somewhat firm NEURO/PSYCH: lightly sedate - eyes flutter open A/P: Umbilical hernia w/ SBO - ?resolved per interval CT as above MSSA bacteremia, resp failure/pneumonia Left adnexal mass, lymphadenopathy (retroperitoneal, inguinal - ?mets), cirrhosis/portal hypertension Anemia, thrombocytopenia, leukocytosis -- Agree w/ comfort care discussion - await 's decision. DESHAWN SALEH Apr 27, 2019 12:19
[2019-04-27] MEDS: TPN PER PHARMACY MC PRN ×2 (12:45→12:57)
--- NOTE | 2019-04-27 12:54 | PDOC ---
PULMONARY PROGRESS NOTES Subjective on vent, on peep 5, fio2 40%, sedated ,off levo, v recurrent fever, lactic acidosis Vitals Vital Signs Date Time Temp Pulse Resp B/P (MAP) Pulse Ox O2 Delivery O2 Flow Rate FiO2 04/27/19 12:00 Mechanical Ventilator 04/27/19 12:00 101.8 90 27 106/52 (70) 99 101.8 Comments ros as mentioned as above discussed w rn other sys otherwise neg on vent sedated Lungs: Other (deminished) Cardiovascular: S1, S2 Abdomen: Other (distended obese deminished bs) Extremities: Other (lymphedema) Skin: Warm Labs Laboratory Tests Test 04/25/19 17:27 04/26/19 05:15 04/26/19 08:00 04/26/19 08:17 Glucose (Fingerstick) 275 mg/dL (70-99) 387 mg/dL (70-99) White Blood Count 10.4 x10^3/uL (4.0-11.0) Red Blood Count 4.31 x10^6/uL (3.50-5.40) Hemoglobin 9.8 g/dL (12.0-15.5) Hematocrit 30.6 % (36.0-47.0) Mean Corpuscular Volume 71 fL (79-100) Mean Corpuscular Hemoglobin 23 pg (25-35) Mean Corpuscular Hemoglobin Concent 32 g/dL (31-37) Red Cell Distribution Width 18.9 % (11.5-14.5) Platelet Count 52 x10^3/uL (140-400) Neutrophils (%) (Auto) 89 % (31-73) Lymphocytes (%) (Auto) 7 % (24-48) Monocytes (%) (Auto) 3 % (0-9) Eosinophils (%) (Auto) 0 % (0-3) Basophils (%) (Auto) 0 % (0-3) Neutrophils # (Auto) 9.2 x10^3/uL (1.8-7.7) Lymphocytes # (Auto) 0.8 x10^3/uL (1.0-4.8) Monocytes # (Auto) 0.3 x10^3/uL (0.0-1.1) Eosinophils # (Auto) 0.0 x10^3/uL (0.0-0.7) Basophils # (Auto) 0.0 x10^3/uL (0.0-0.2) Sodium Level 144 mmol/L (136-145) Potassium Level 4.6 mmol/L (3.5-5.1) Chloride Level 110 mmol/L (98-107) Carbon Dioxide Level 23 mmol/L (21-32) Anion Gap 11 (6-14) Blood Urea Nitrogen 50 mg/dL (7-20) Creatinine 0.9 mg/dL (0.6-1.0) Estimated GFR (Cockcroft-Gault) 63.0 Glucose Level 385 mg/dL (70-99) Calcium Level 8.5 mg/dL (8.5-10.1) Phosphorus Level 1.5 mg/dL (2.6-4.7) Magnesium Level 1.9 mg/dL (1.8-2.4) Triglycerides Level 262 mg/dL (0-150) Urine Collection Type Unknown Urine Color Yani Urine Clarity Clear Urine pH 5.5 Urine Specific Dearing >=1.030 Urine Protein 30 mg/dL (NEG-TRACE) Urine Glucose (UA) >=1000 mg/dL (NEG) Urine Ketones (Stick) Negative mg/dL (NEG) Urine Blood Large (NEG) Urine Nitrite Negative (NEG) Urine Bilirubin Negative (NEG) Urine Urobilinogen Dipstick 1.0 mg/dL (0.2 mg/dL) Urine Leukocyte Esterase Small (NEG) Urine RBC Tntc /HPF (0-2) Urine WBC 5-10 /HPF (0-4) Urine Bacteria 0 /HPF (0-FEW) O2 Saturation 96 % (92-99) Arterial Blood pH 7.47 (7.35-7.45) Arterial Blood pCO2 at Patient Temp 27 mmHg (35-46) Arterial Blood pO2 at Patient Temp 81 mmHg (65-108) Arterial Blood HCO3 19 mmol/L (21-28) Arterial Blood Base Excess -4 mmol/L (-3-3) FiO2 35 Test 04/26/19 08:20 04/26/19 12:00 04/26/19 14:50 04/26/19 18:19 Lactic Acid Level 3.1 mmol/L (0.4-2.0) 3.8 mmol/L (0.4-2.0) Glucose (Fingerstick) 369 mg/dL (70-99) 350 mg/dL (70-99) Test 04/27/19 00:40 04/27/19 05:26 04/27/19 05:30 04/27/19 08:49 Glucose (Fingerstick) 384 mg/dL (70-99) 340 mg/dL (70-99) 347 mg/dL (70-99) White Blood Count 20.5 x10^3/uL (4.0-11.0) Red Blood Count 4.79 x10^6/uL (3.50-5.40) Hemoglobin 10.6 g/dL (12.0-15.5) Hematocrit 34.5 % (36.0-47.0) Mean Corpuscular Volume 72 fL (79-100) Mean Corpuscular Hemoglobin 22 pg (25-35) Mean Corpuscular Hemoglobin Concent 31 g/dL (31-37) Red Cell Distribution Width 19.0 % (11.5-14.5) Platelet Count 78 x10^3/uL (140-400) Neutrophils (%) (Auto) 88 % (31-73) Lymphocytes (%) (Auto) 7 % (24-48) Monocytes (%) (Auto) 5 % (0-9) Eosinophils (%) (Auto) 0 % (0-3) Basophils (%) (Auto) 0 % (0-3) Neutrophils # (Auto) 18.1 x10^3/uL (1.8-7.7) Lymphocytes # (Auto) 1.4 x10^3/uL (1.0-4.8) Monocytes # (Auto) 0.9 x10^3/uL (0.0-1.1) Eosinophils # (Auto) 0.1 x10^3/uL (0.0-0.7) Basophils # (Auto) 0.0 x10^3/uL (0.0-0.2) Sodium Level 147 mmol/L (136-145) Potassium Level 4.6 mmol/L (3.5-5.1) Chloride Level 112 mmol/L (98-107) Carbon Dioxide Level 22 mmol/L (21-32) Anion Gap 13 (6-14) Blood Urea Nitrogen 57 mg/dL (7-20) Creatinine 1.0 mg/dL (0.6-1.0) Estimated GFR (Cockcroft-Gault) 55.8 Glucose Level 376 mg/dL (70-99) Calcium Level 8.8 mg/dL (8.5-10.1) Phosphorus Level 2.0 mg/dL (2.6-4.7) Magnesium Level 2.0 mg/dL (1.8-2.4) Test 04/27/19 08:50 04/27/19 11:34 O2 Saturation 97 % (92-99) Arterial Blood pH 7.46 (7.35-7.45) Arterial Blood pCO2 at Patient Temp 29 mmHg (35-46) Arterial Blood pO2 at Patient Temp 87 mmHg (65-108) Arterial Blood HCO3 20 mmol/L (21-28) Arterial Blood Base Excess -3 mmol/L (-3-3) FiO2 35 Glucose (Fingerstick) 372 mg/dL (70-99) Laboratory Tests Test 04/26/19 14:50 04/26/19 18:19 04/27/19 00:40 04/27/19 05:26 Lactic Acid Level 3.8 mmol/L (0.4-2.0) Glucose (Fingerstick) 350 mg/dL (70-99) 384 mg/dL (70-99) 340 mg/dL (70-99) Test 04/27/19 05:30 04/27/19 08:49 04/27/19 08:50 04/27/19 11:34 White Blood Count 20.5 x10^3/uL (4.0-11.0) Red Blood Count 4.79 x10^6/uL (3.50-5.40) Hemoglobin 10.6 g/dL (12.0-15.5) Hematocrit 34.5 % (36.0-47.0) Mean Corpuscular Volume 72 fL (79-100) Mean Corpuscular Hemoglobin 22 pg (25-35) Mean Corpuscular Hemoglobin Concent 31 g/dL (31-37) Red Cell Distribution Width 19.0 % (11.5-14.5) Platelet Count 78 x10^3/uL (140-400) Neutrophils (%) (Auto) 88 % (31-73) Lymphocytes (%) (Auto) 7 % (24-48) Monocytes (%) (Auto) 5 % (0-9) Eosinophils (%) (Auto) 0 % (0-3) Basophils (%) (Auto) 0 % (0-3) Neutrophils # (Auto) 18.1 x10^3/uL (1.8-7.7) Lymphocytes # (Auto) 1.4 x10^3/uL (1.0-4.8) Monocytes # (Auto) 0.9 x10^3/uL (0.0-1.1) Eosinophils # (Auto) 0.1 x10^3/uL (0.0-0.7) Basophils # (Auto) 0.0 x10^3/uL (0.0-0.2) Sodium Level 147 mmol/L (136-145) Potassium Level 4.6 mmol/L (3.5-5.1) Chloride Level 112 mmol/L (98-107) Carbon Dioxide Level 22 mmol/L (21-32) Anion Gap 13 (6-14) Blood Urea Nitrogen 57 mg/dL (7-20) Creatinine 1.0 mg/dL (0.6-1.0) Estimated GFR (Cockcroft-Gault) 55.8 Glucose Level 376 mg/dL (70-99) Calcium Level 8.8 mg/dL (8.5-10.1) Phosphorus Level 2.0 mg/dL (2.6-4.7) Magnesium Level 2.0 mg/dL (1.8-2.4) Glucose (Fingerstick) 347 mg/dL (70-99) 372 mg/dL (70-99) O2 Saturation 97 % (92-99) Arterial Blood pH 7.46 (7.35-7.45) Arterial Blood pCO2 at Patient Temp 29 mmHg (35-46) Arterial Blood pO2 at Patient Temp 87 mmHg (65-108) Arterial Blood HCO3 20 mmol/L (21-28) Arterial Blood Base Excess -3 mmol/L (-3-3) FiO2 35 Medications Active Scripts Medications Dose Route/Sig Max Daily Dose Days Date Category No Known Medications Prior To Admisstion (Info) Each 1 Each 1X 04/20/[address] abdomen Limited exam due to lack of IV contrast. 1. Bilateral lung bases consolidations, left more than right may be secondary to atelectasis or pneumonia. 2. Cirrhosis with evidence of portal venous hypertension. Stable small volume ascites. 3. Umbilical hernia containing focal loop of small bowel with resolution of previously seen dilated bowel loops. No imaging evidence of high-grade bowel obstruction. 4. Enlarged retroperitoneal and inguinal lymph nodes concerning for lymphoma or metastasis. 5. Omental nodularity suggests a metastasis or pneumatosis. 6. Left adnexal masslike lesion may be of ovarian origin or pedunculated fibroid. Nonemergent MRI of the pelvis with IV contrast recommended. Electronically signed by: Miguel Hampton DO (04/26/2019 1:19 PM) [facility] Impression . IMPRESSION: 1. Acute hypercapnic respiratory failure secondary to multifactorial etiologies and likely underlying hypovolemic and septic shock., now with recurrent fever, lactic acidosis 2. bilateral infiltrates, likely related to aspiration pneumonia. 3. Acute kidney injury secondary to hypotension and shock. 4. Small bowel obstruction. She has been seen by Surgery and not a surgical candidate. Over 2 liters of fluid came out from her orogastric tube upon insertion. 5. Chronic lymphedema of the lower extremities. 6. Leukocytosis. 7. Moderate protein-calorie malnutrition. 8. fever, 9. bacteremia, gram +cocci, recent MSSA bacteremia 10. Abnormal ct abdomen with suspected lymphoma vs malignancy Plan . 1. Continue vent support, setting reviewed, back on sedation.not stable for sbt. 2. Broad-spectrum antibiotic per Infectious Disease recommendations. 3. Follow all cultures. 4. Renal consultation / rec. 5. Follow Surgery recommendations. 6. Follow GI recommendations. 7. DVT and stress ulcer prophylaxis. 8. Prognosis appears to be grim. I had a long discussion with today. explained multiple organ involvement and abnormal ct abd findings. He understands and agrees for comfort care.He will decide on the day after talking to other daughter TYE MADRIGAL MD Apr 27, 2019 12:54
[2019-04-27] MEDS ORDERED: POTASSIUM PHOSPHATE DIBASIC 13.6 MMOL in IV DEXTROSE 5% 100ML 100 ML IV ONE (13:00)
[2019-04-27] MEDS: DEXMEDETOMIDINE 400 MCG in IV NORMAL SALINE 100ML 96 ML IV PRN ×2 (13:09→18:30)
--- NOTE | 2019-04-27 13:23 | NUR ---
Pharmacy TPN Dosing Note S: XENA LEE is a 63 year old F Currently receiving Central Continuous TPN started 04/25/19 B:Pertinent PMH: SBO Height: 5 feet, 3 inches Weight: 132.333276 kg Current diet: NPO LABS: Sodium: 147 Potassium: 4.6 Chloride: 112 Calcium: 8.8 Corrected Calcium: 10.08 Magnesium: 2 CO2: 22 SCr: 1 Glucose: 340-384 Albumin: 2.4 AST: 44 ALT: 28 TPN FORMULA: TPN TYPE: Central Continuous AMINO ACIDS: 115 gm DEXTROSE: 250 gm LIPIDS: 30 gm SODIUM CHLORIDE: - mEq SODIUM ACETATE: 70 mEq SODIUM PHOSPHATE: 10 mmol POTASSIUM CHLORIDE: 30 mEq POTASSIUM ACETATE: - mEq POTASSIUM PHOSPHATE: 18 mmol MAGNESIUM: 10 mEq CALCIUM: - mEq INSULIN: 20 units MULTIPLE VITAMIN: 10 ml TRACE ELEMENTS: 1 ml(s) TPN PLAN: -Continue Macros per dietary recommendations -Phos continues to be low, was 2 this AM. Na = 147 and K = 4.[address] AM[address] Confirmed with Dr. Pascual phosphate to be replaced w/ KPhos at this time. 1x dose of 13.6 mmol of KPhos given outside of TPN. Will increase KPhos in TPN to 18 mmol and decrease KCl to 30 mEq. -Due to need for increased phosphate will remove calcium from TPN at this time. -BG remains elevated latnus 20 units and SSI started outside of TPN. -Sodium continues to trend up today (in addition to patient being on other medications diluted in NS and with elevated BG). For these reasons will decrease sodium acetate in TPN slightly. -BMP, Phos, Mag and repeat Triglycerides ordered for tomorrow. R: Continue TPN with increased KPhos, Decreased KCl, removal of calcium, slight decrease in sodium acetate and addition of insulin outside of TPN. Will monitor electrolytes, glucose, and tolerance to TPN. MEDARDO CASEY, [facility], 04/27/19 [id number]
--- NOTE | 2019-04-27 14:46 | PDOC2 ---
PALLIATIVE CARE Palliative Care Note Palliative Care Patient remains intubated. Oxygen 35%. Increased RR . Restless at times. Met with Pierre/ and daughter Adriana along with Dr. Mari. Reviewed medical condition and options for care. Pierre would like to focus on comfort and allow natural . He wants to talk with daughter Viry before making any changes. Code Status: DNR Pierre will return call to ICU after he has talked with his daughter and decided when to change to comfort care. JOSÉ ANTONIO YEUNG Apr 27, 2019 14:46
[2019-04-27] MEDS: IV NORMAL SALINE 1000ML BAG 1,000 ML IV SCH (17:12)
[2019-04-27] MEDS: INSULIN GLARGINE SYRINGE. SQ SCH (21:05)
[2019-04-27] MEDS ORDERED: AMINO ACID IV SCH ×11 (22:00)
[2019-04-27] MEDS ORDERED: TOTAL PARENTERAL NUTRITION IV SCH ×11 (22:00)
[2019-04-27] MEDS ORDERED: DEXTROSE 70% IV SCH ×11 (22:00)
[2019-04-27] MEDS ORDERED: [UNRECOGNIZED DRUG - OTHER] IV SCH ×11 (22:00)
--- NOTE | 2019-04-27 22:58 | CONS ---
DATE OF CONSULTATION: 04/27/2019 MEDICAL ONCOLOGY CONSULTATION REPORT CONSULTATION REQUESTING BY: Dr. Hammad Pascual. REASON FOR CONSULTATION: Pelvic mass and possible lymphadenopathy. HISTORY OF PRESENT ILLNESS: The patient is a 63-year-old female who was admitted to the ICU with respiratory failure and she is on mechanical ventilation. She was initially hospitalized with complaints of generalized weakness on 04/19/2019. While she was on the floor, rapid response had to be called and she became lethargic and unresponsive, requiring intubation. She was then transferred to the ICU. CT scan of the abdomen and pelvis on 04/20/2019 revealed numerous enlarged retroperitoneal lymph nodes, which are nonspecific; however, they are abnormal. An 8.3-cm left adnexal mass is present, which could be ovarian in etiology or a pedunculated fibroid. There is evidence of cirrhosis of the liver with portal hypertension including splenomegaly and ascites. CT scan of the abdomen and pelvis on 04/26/2019 revealed cirrhosis with portal hypertension, enlarged retroperitoneal and inguinal lymph nodes concerning for lymphoma or metastasis. Omental nodularity suggestive of metastasis or pneumatosis. Left adnexal mass again noted. Gynecology consultation was obtained. Surgical consultation was obtained, and she was not thought to be a surgical candidate because of her poor functional status and comorbidities. She continues to receive supportive care in the ICU. PAST MEDICAL HISTORY: Chronic lymphedema of the lower extremities, hypertension, GERD, urinary tract infection and diabetes. FAMILY HISTORY: Positive for heart disease. SOCIAL HISTORY: No smoking or alcohol abuse. REVIEW OF SYSTEMS: A 12-point review of system was performed. Pertinent positives are mentioned in the history of present illness and the rest of the system review is negative. I reviewed the medical records and discussed with medical staff. The patient is unable to give any history because of her intubated and unresponsive status. PHYSICAL EXAMINATION: GENERAL APPEARANCE: The patient is a 63-year-old female who is in the ICU, intubated, unresponsive and in no acute cardiorespiratory distress. VITAL SIGNS: Blood pressure 119/71 and temperature 98.0. HEAD: Atraumatic, normocephalic. EYES: No icterus. NECK: Supple. CHEST: Bilaterally symmetrical. HEART: S1, S2 normal. ABDOMEN: Soft, no masses palpable. CENTRAL NERVOUS SYSTEM: Unresponsive. MUSCULOSKELETAL: She has lymphedema in bilateral lower extremities. LYMPHATICS: No lymphadenopathy. LABORATORY DATA: WBC 20.5, hemoglobin 10.6, platelet count 78 and creatinine 1.0. IMPRESSION AND PLAN: 1. Pelvic mass. Left adnexal mass is present measuring 9 x 8.5 cm, which could be an ovarian etiology versus a pedunculated fibroid. Presence of omental nodularity raises the concern for metastatic disease. There is also evidence of retroperitoneal and inguinal lymph nodes concerning for lymphoma or metastasis. This would require further workup with biopsy or exploratory laparotomy. However, the patient's functional status is very poor and she is not a candidate for surgery and I appreciate surgical consultation. Hence, since we will not be able to offer any therapeutic interventions if this is malignant, I would not pursue with the biopsy. I would continue supportive care in the ICU. Prognosis is poor per multiple consultants. Hence, supportive care would be the best option. Appreciate palliative care consultation. 2. Respiratory failure. She is on mechanical ventilation. Appreciate pulmonary management. 3. Anemia. Continue to monitor. 4. Leukocytosis, reactive to monitor. 5. Thrombocytopenia, which is also reactive. Her platelets were normal at the time of admission. Continue to monitor. KETURAH ROMERO MD DR: ADA/jonnathan JOB#: [id number] / [id number] JOVANNI
[2019-04-28] VITALS (27 sets, daily range): BP systolic 55–130; BP diastolic 38–84
[2019-04-28] MEDS: MEROPENEM 500 MG in IV NORMAL SALINE 50ML 50 ML IV SCH ×4 (00:31→18:13)
[2019-04-28] MEDS: INSULIN LISPRO 300 UNITS/3 ML VIAL. SQ SCH ×8 (00:32→20:37)
[2019-04-28] MEDS: DEXMEDETOMIDINE 400 MCG in IV NORMAL SALINE 100ML 96 ML IV PRN ×5 (04:22→23:24)
[2019-04-28 05:42] LABS: BASO # 0.1 x10^3/uL (0.0-0.2); BASO % 0 % (0-3); EOS # 0.1 x10^3/uL (0.0-0.7); EOS % 1 % (0-3); HEMATOCRIT 31.6 % (36.0-47.0); HEMOGLOBIN 9.9 g/dL (12.0-15.5); LYMPH # 1.5 x10^3/uL (1.0-4.8); LYMPH % 8 % (24-48); MEAN CORPUSCULAR HEMOGLOBIN 23 pg (25-35); MEAN CORPUSCULAR HGB CONC 31 g/dL (31-37); MEAN CORPUSCULAR VOLUME 73 fL (79-100); MONO % 6 % (0-9); NEUT # 14.8 x10^3/uL (1.8-7.7); NEUT % 85 % (31-73); PLATELET COUNT 74 x10^3/uL (140-400); RED BLOOD COUNT 4.36 x10^6/uL (3.50-5.40); RED CELL DISTRIBUTION WIDTH 18.7 % (11.5-14.5); WHITE BLOOD COUNT 17.4 x10^3/uL (4.0-11.0)
[2019-04-28] MEDS: METOPROLOL TARTRATE 5 MG/5 ML VIAL. IVP SCH ×4 (06:00→18:00)
[2019-04-28 06:10] LABS: CALCIUM 8.8 mg/dL (8.5-10.1); GFR 55.8; POTASSIUM 4.7 mmol/L (3.5-5.1)
[2019-04-28 06:11] LABS: MAGNESIUM 2.2 mg/dL (1.8-2.4); PHOSPHORUS 2.9 mg/dL (2.6-4.7)
[2019-04-28 07:34] LABS: BASE EXCESS ABG -7 mmol/L (-3-3); HCO3 ABG 17 mmol/L (21-28); PCO2 ABG 28 mmHg (35-46); PO2 ABG 98 mmHg (65-108); SAT O2 ABG 97 % (92-99)
[2019-04-28] MEDS: PANTOPRAZOLE IV PUSH 40 MG VIAL. IVP SCH (07:50)
[2019-04-28] MEDS: MICAFUNGIN 100 MG in IV DEXTROSE 5% 100ML 100 ML IV SCH (07:51)
--- NOTE | 2019-04-28 07:53 | PDOC ---
Infectious Disease Note Subjective: Subjective Remains orally intubated/vent d/w rn remains febrile remains on same vent settings no diarrhea UO has dropped family has decided for comfort measures though will initiate on Wednesday Vital Signs: Vital Signs Vital Signs Date Time Temp Pulse Resp B/P (MAP) Pulse Ox O2 Delivery O2 Flow Rate FiO2 04/28/19 07:34 Mechanical Ventilator 04/28/19 07:24 100 04/28/19 07:00 91 25 106/64 (78) 04/28/19 04:56 98.0 04/28/19 04:00 100.6 100.6 Physical Exam: PHYSICAL EXAM GENERAL: Orally intubated, sedated, mitts HEENT: Pupils equal, small. ETT/ OGT with green colored output NECK: Supple. Left EJ , LUNGS: dec bs at bases HEART: S1, S2 ,no murmurs ABDOMEN: Soft, Umbilical hernia present. Large pannus present. EXTREMITIES: Both lower extremities have venous insufficiency, stasis dermatitis on both the legs posteriorly. Trace edema SKIN: Warm to touch. sacral wound NEUROLOGIC: Sedated on vent RIJ clean Medications: Inpatient Meds: Current Medications Medications (Trade) Dose Ordered Sig/[place] Start Time Stop Time Status Last Admin Dose Admin Acetaminophen (Tylenol Supp) 650 mg PRN Q6HRS PRN 04/21/19 16:45 04/27/19 11:44 650 MG Acetaminophen (Tylenol) 650 mg PRN Q6HRS PRN 04/22/19 00:15 Cancel Albumin Human 100 ml @ 100 mls/hr TID 04/22/19 14:00 04/24/19 09:59 DC 04/24/19 08:10 100 MLS/HR Amino Acids/ Glycerin/ Electrolytes 1,000 ml @ 80 mls/hr [id number] 04/23/19 14:00 04/25/19 21:59 DC 04/25/19 17:31 80 MLS/HR Atropine Sulfate (ATROPINE 0.5mg SYRINGE) 0.5 mg PRN Q5MIN PRN 04/20/19 23:30 Ceftriaxone Sodium (Rocephin) 1 gm 1X ONCE 04/19/19 18:45 04/19/19 18:46 DC 04/19/19 19:17 1 GM Daptomycin 720 mg/ Sodium Chloride 50 ml @ 100 mls/hr ONCE ONCE 04/22/19 16:00 9/7/19 16:29 DC 04/22/19 15:06 100 MLS/HR Daptomycin 760 mg/ Sodium Chloride 50 ml @ 100 mls/hr ONCE ONCE 04/23/19 13:00 04/23/19 13:29 DC 04/23/19 13:02 100 MLS/HR Daptomycin 780 mg/ Sodium Chloride 50 ml @ 100 mls/hr Q24H 04/26/19 10:00 04/27/19 10:11 100 MLS/HR Dexmedetomidine HCl 400 mcg/ Sodium Chloride 100 ml @ 0 mls/hr CONT PRN 04/20/19 23:30 04/28/19 04:22 14.1 MLS/HR Dextrose 250 ml PRN Q15MIN PRN 04/19/19 19:30 Dextrose (Dextrose 50%-Water Syringe) 12.5 gm PRN Q15MIN PRN 04/19/19 19:30 Enoxaparin Sodium (Lovenox 60mg Syringe) 60 mg Q12HR 04/21/19 21:00 04/22/19 15:40 DC 04/21/19 20:45 60 MG Epinephrine HCl 4 mg/Sodium Chloride 254 ml @ 42.935 mls/ hr CONT PRN 04/21/19 05:00 Fentanyl Citrate 30 ml @ 0 mls/hr CONT PRN PRN 04/20/19 17:15 04/28/19 04:22 1.25 MLS/HR Info (Tpn Per Pharmacy) 1 each PRN DAILY PRN 04/25/19 11:15 04/27/19 12:57 1 EACH Insulin Glargine (Lantus Syringe) 20 unit QHS 04/27/19 21:00 04/27/19 21:06 20 UNIT Insulin Human Lispro (HumaLOG) 20 units 1X ONCE 04/27/19 11:45 04/27/19 11:46 DC 04/27/19 11:53 20 UNITS Lactic Acid (Lac-Hydrin) 1 gauri BID 04/20/19 21:00 04/27/19 21:06 1 GAURI Lidocaine HCl (Xylocaine 2% Topical 5gm Tube) 5 gauri STK-MED ONCE 04/19/19 12:00 04/21/19 10:21 DC Lorazepam (Ativan Inj) 1 mg PRN 1X ONCE 04/20/19 16:15 04/20/19 16:16 DC Meropenem 500 mg/ Sodium Chloride 50 ml @ 100 mls/hr Q6HRS 04/25/19 12:00 04/28/19 06:02 100 MLS/HR Metoprolol Tartrate (Lopressor Vial) 2.5 mg Q6HRS 04/20/19 14:30 04/27/19 17:52 2.5 MG Metoprolol Tartrate (Lopressor) 25 mg BID 04/20/19 14:00 04/20/19 13:34 DC Micafungin Sodium 100 mg/Dextrose 100 ml @ 100 mls/hr Q24H 04/26/19 08:30 04/27/19 08:54 100 MLS/HR Midazolam HCl 100 ml @ 5 mls/hr CONT PRN 04/20/19 17:15 04/24/19 03:54 5 MLS/HR Midazolam HCl (Versed) 5 mg 1X ONCE 04/20/19 17:15 04/20/19 17:19 DC 04/20/19 17:38 5 MG Naloxone HCl (Narcan) 0.4 mg PRN Q2MIN PRN 04/20/19 17:15 Norepinephrine Bitartrate 250 ml @ 21.129 mls/ hr CONT PRN 04/20/19 17:30 UNV Ondansetron HCl (Zofran) 4 mg PRN Q6HRS PRN 04/20/19 10:00 04/20/19 16:04 4 MG Pantoprazole Sodium (PROTONIX VIAL for IV PUSH) 40 mg DAILYAC 04/20/19 12:30 04/27/19 07:39 40 MG Piperacillin Sod/ Tazobactam Sod 3.375 gm/Sodium Chloride 50 ml @ 100 mls/hr Q6HRS 04/20/19 18:00 04/25/19 07:48 DC 04/25/19 06:21 100 MLS/HR Potassium Chloride/Water 100 ml @ 100 mls/hr Q1H 04/20/19 12:00 04/20/19 15:59 DC 04/21/19 07:22 100 MLS/HR Potassium Phosphate 13.6 mmol/Dextrose 104.5333 ml @ 52.267 m... ONCE ONCE 04/27/19 13:00 04/27/19 14:59 DC 04/27/19 13:09 52.267 MLS/HR Potassium Phosphate 15 mmol/ Sodium Chloride 255 ml @ 127.5 mls/ hr 1X ONCE 04/25/19 14:00 04/25/19 15:59 DC 04/25/19 15:06 127.5 MLS/HR Potassium Chloride (Klor-Con) 40 meq 1X ONCE 04/20/19 11:30 04/20/19 11:31 Cancel Propofol 100 ml @ 1.69 mls/hr CONT PRN 04/20/19 17:15 04/20/19 17:36 6.761 MLS/HR Rocuronium [place] (Zemuron) 50 mg STK-MED ONCE 04/20/19 18:00 04/21/19 09:09 DC Sodium Acetate 70 meq/Sodium Phosphate 10 mmol/ Potassium Chloride 30 meq/ Potassium Phosphate 18 mmol/ Magnesium Sulfate 10 meq/ Multivitamins 10 ml/Chromium/ Copper/Manganese/ Seleni/Zn 1 ml/ Insulin Human Regular 20 unit/ Total Parenteral Nutrition/Amino Acids/Dextrose/ Fat Emuls... 1,512 ml @ 63 mls/hr TPN CONT 04/27/19 22:00 04/28/19 21:59 04/27/19 21:13 63 MLS/HR Sodium Acetate 90 meq/Sodium Phosphate 10 mmol/ Potassium Chloride 50 meq/ Potassium Phosphate 15 mmol/ Magnesium Sulfate 10 meq/Calcium Gluconate 10 meq/ Multivitamins 10 ml/Chromium/ Copper/Manganese/ Seleni/Zn 1 ml/ Insulin Human Regular 20 unit/ Total Parenteral Nutrition/Amino Acids/Dextro... 1,512 ml @ 63 mls/hr TPN CONT 04/26/19 22:00 04/27/19 21:59 DC 04/26/19 22:12 63 MLS/HR Sodium Bicarbonate (Sodium Bicarb Adult 8.4% Syr) 50 meq 1X ONCE 04/27/19 10:15 04/27/19 10:16 DC 04/27/19 10:16 50 MEQ Sodium Chloride 1,000 ml @ 1,000 mls/hr 1X ONCE 04/26/19 11:00 04/26/19 11:59 DC 04/26/19 11:13 1,000 MLS/HR Sodium Chloride 90 meq/Potassium Chloride 50 meq/ Potassium Phosphate 15 mmol/ Magnesium Sulfate 10 meq/Calcium Gluconate 10 meq/ Multivitamins 10 ml/Chromium/ Copper/Manganese/ Seleni/Zn 1 ml/ Insulin Human Regular 10 unit/ Total Parenteral Nutrition/Amino Acids/Dextrose/ Fat Emulsion Intravenous 1,512 ml @ 63 mls/hr TPN CONT 04/25/19 22:00 04/26/19 21:59 DC 04/25/19 23:10 63 MLS/HR Sodium Phosphate 30 mmol/Dextrose 260 ml @ 65 mls/hr 1X ONCE 04/26/19 15:00 04/26/19 18:59 DC 04/26/19 15:11 65 MLS/HR Succinylcholine Chloride (Anectine) 80 mg 1X ONCE 04/20/19 17:30 04/20/19 17:31 DC 04/20/19 17:36 80 MG Vancomycin HCl (Vanco Per Pharmacy) 1 each PRN DAILY PRN 04/19/19 19:15 04/21/19 09:40 DC 04/20/19 14:29 1 EACH Vancomycin HCl (Vancomycin Trough Level) 1 each 1X ONCE 04/21/19 07:30 04/21/19 07:31 DC 04/21/19 10:49 1 EACH Vancomycin HCl 1.5 gm/Sodium Chloride 500 ml @ 250 mls/hr Q12H 04/20/19 08:00 04/21/19 09:40 DC 04/20/19 20:04 250 MLS/HR Vancomycin HCl 2 gm/Sodium Chloride 500 ml @ 250 mls/hr 1X ONCE 04/19/19 19:15 04/19/19 21:14 DC 04/19/19 20:01 250 MLS/HR Vasopressin 40 unit/Dextrose 102 ml @ 6 mls/hr CONT PRN 04/21/19 04:00 04/24/19 15:38 6 MLS/HR Labs: Lab Laboratory Tests Test 04/27/19 08:49 04/27/19 08:50 04/27/19 11:34 04/27/19 16:13 Glucose (Fingerstick) 347 mg/dL (70-99) 372 mg/dL (70-99) 348 mg/dL (70-99) O2 Saturation 97 % (92-99) Arterial Blood pH 7.46 (7.35-7.45) Arterial Blood pCO2 at Patient Temp 29 mmHg (35-46) Arterial Blood pO2 at Patient Temp 87 mmHg (65-108) Arterial Blood HCO3 20 mmol/L (21-28) Arterial Blood Base Excess -3 mmol/L (-3-3) FiO2 35 Test 04/27/19 21:04 04/28/19 00:30 04/28/19 04:44 04/28/19 05:30 Glucose (Fingerstick) 355 mg/dL (70-99) 339 mg/dL (70-99) 230 mg/dL (70-99) White Blood Count 17.4 x10^3/uL (4.0-11.0) Red Blood Count 4.36 x10^6/uL (3.50-5.40) Hemoglobin 9.9 g/dL (12.0-15.5) Hematocrit 31.6 % (36.0-47.0) Mean Corpuscular Volume 73 fL (79-100) Mean Corpuscular Hemoglobin 23 pg (25-35) Mean Corpuscular Hemoglobin Concent 31 g/dL (31-37) Red Cell Distribution Width 18.7 % (11.5-14.5) Platelet Count 74 x10^3/uL (140-400) Neutrophils (%) (Auto) 85 % (31-73) Lymphocytes (%) (Auto) 8 % (24-48) Monocytes (%) (Auto) 6 % (0-9) Eosinophils (%) (Auto) 1 % (0-3) Basophils (%) (Auto) 0 % (0-3) Neutrophils # (Auto) 14.8 x10^3/uL (1.8-7.7) Lymphocytes # (Auto) 1.5 x10^3/uL (1.0-4.8) Monocytes # (Auto) 1.0 x10^3/uL (0.0-1.1) Eosinophils # (Auto) 0.1 x10^3/uL (0.0-0.7) Basophils # (Auto) 0.1 x10^3/uL (0.0-0.2) Sodium Level 147 mmol/L (136-145) Potassium Level 4.7 mmol/L (3.5-5.1) Chloride Level 114 mmol/L (98-107) Carbon Dioxide Level 22 mmol/L (21-32) Anion Gap 11 (6-14) Blood Urea Nitrogen 73 mg/dL (7-20) Creatinine 1.0 mg/dL (0.6-1.0) Estimated GFR (Cockcroft-Gault) 55.8 Glucose Level 249 mg/dL (70-99) Calcium Level 8.8 mg/dL (8.5-10.1) Phosphorus Level 2.9 mg/dL (2.6-4.7) Magnesium Level 2.2 mg/dL (1.8-2.4) Triglycerides Level 221 mg/dL (0-150) Micro RUN DATE: 04/23/19 PAGE 1 RUN TIME: 9697 [facility] [address] [place] [address] Jae Wright M.D., Transmission Maintenance Supervisor PATIENT: XENA LEE ACCT: [id number] LOC: 1 WEST ICU U: [id number] AGE/SX: 63/F ROOM: 115 RE04/19/[address]: ASHLY SIEGEL MD : 1955 BED: 1 DIS: STATUS: ADM IN TLOC: SPEC #: [id number] WEST: 04/19/19 STATUS: COMP REQ #: [id number] RECD: 04/19/[address]: BENJIE DE LOS SANTOS MD SOURCE: BLOOD ENTR: 04/20/19-[address]: GEOVANNA PCP SPDESC: ORDERED: BLD CULT - LC Procedure Result BLOOD CULTURE LC Final Preliminary report Final report BLD CULT RESULT 1 Final Comment Staphylococcus species Performed at: - [facility] [address], [place], [place] [id number] Patient Care Technician Instructor: BHARGAVI Smart MD, Phone: [phone] Staphylococcus epidermidis Based on susceptibility to oxacillin this isolate would be susceptible to: *Penicillinase-stable penicillins, such as: Cloxacillin, Dicloxacillin, Nafcillin *Beta-lactam combination agents, such as: Amoxicillin-clavulanic acid, Ampicillin-sulbactam, Piperacillin-tazobactam *Oral cephems, such as: Cefaclor, Cefdinir, Cefpodoxime, Cefprozil, Cefuroxime, Cephalexin, Loracarbef *Parenteral cephems, such as: Cefazolin, Cefepime, Cefotaxime, Cefotetan, Ceftaroline, Ceftizoxime, Ceftriaxone, Cefuroxime *Carbapenems, such as: Doripenem, Ertapenem, Imipenem, Meropenem ANTIMICROBIAL SUSCEPTIBILITY Final Comment S = Susceptible; I = Intermediate; R = Resistant P = Positive; N = Negative MICS are expressed in micrograms per mL Antibiotic RSLT#1 RSLT#2 RSLT#3 RSLT#4 Ciprofloxacin S<=0.5 Clindamycin S<=0.25 Erythromycin R>=8 Gentamicin S<=0.5 CONTINUED ON NEXT PAGE RUN DATE: 04/23/19 PAGE 2 RUN TIME: 1510 [facility] [address] [facility] [place] [address] Jae Wright M.D., Transmission Maintenance Supervisor SPEC: [id number] PATIENT: XENA LEE [id number] (Continued) Procedure Result ANTIMICROBIAL SUSCEPTIBILITY Final (continued) Levofloxacin S<=0.12 Linezolid S =1 Nitrofurantoin S<=16 Oxacillin S<=0.25 Penicillin R>=0.5 Quinupristin/Dalfopristin S<=0.25 Rifampin S<=0.5 Tetracycline S<=1 Trimethoprim/Sulfa S<=10 Vancomycin S =1 Performed at: DA - [facility] [address] [facility] [address], [place], [place] [id number] Patient Care Technician Instructor: BHARGAVI Smart MD, Phone: [phone] Objective: Assessment: MSSA Bacteremia 04/19 1 BOTTLES repeat bc neg so far Sepsis from above Pt continues to remain febrile on broad spectrum antibiotics Pt is not on pressors or IV fluids Leukocytosis improving Acute resp failure multifactorial, Pneumonia ,likely aspiration Lactic acidosis. Urinary tract infection versus hematuria. UC no growth Poor personal hygiene. Sacral decubitus. venous stasis with weeping lesions ble Status post fall. Abdominal pain. Large adenexal mass,lymphadenopathy, likely malignancy, pt is not a surgical candidate Transaminitis,Chronic liver disease Dilated gallbladder with gallbladder sludge and wall thickening, Small upper abdominal ascites. Splenomegaly. Anemia ,Thrombocytopenia improving mycotic toe nails Umbilical hernia w/ SBO, Plan: Plan of Care Cont to remain febrile on broad spectrum antibiotics, could be from underlying necrotic pelvic mass,not a surgical candidate as repeat bc are negative so far cont merrem 04/26 off Zosyn due to thrombocytopenia 04/25 cont daptomycin and micafungin add zyvox F/u BC 04/21 ; neg so far DC Central line and Lt EJ send cath tip for cultures repeat bc in am Overall prognosis very poor Palliative on case,comfort measures wednesday per family request d/w Nursing staff CARLITOS VILLASEÑOR MD Apr 28, 2019 07:53
[2019-04-28] MEDS: AMMONIUM LACTATE 12% TOPICAL LOTION 226GM BOTTLE. TP SCH ×2 (08:28→20:34)
--- NOTE | 2019-04-28 09:22 | PDOC ---
SURGICAL PROGRESS NOTE Subjective Pt intubated, minimally responsive Vital Signs Vital Signs Date Time Temp Pulse Resp B/P (MAP) Pulse Ox O2 Delivery O2 Flow Rate FiO2 04/28/19 08:39 100 Ventilator 04/28/19 08:00 101.2 89 29 86/65 (72) 101.2 04/28/19 04:56 98.0 I&O Intake and Output 04/28/19 06:59 Intake Total 2450 ml Output Total 960 ml Balance 1490 ml IV Total 2450 ml Output Urine Total 960 ml Abdomen: Soft, Other (hernia, non reducible) Labs Laboratory Tests Test 04/26/19 12:00 04/26/19 14:50 04/26/19 18:19 04/27/19 00:40 Glucose (Fingerstick) 369 mg/dL (70-99) 350 mg/dL (70-99) 384 mg/dL (70-99) Lactic Acid Level 3.8 mmol/L (0.4-2.0) Test 04/27/19 05:26 04/27/19 05:30 04/27/19 08:49 04/27/19 08:50 Glucose (Fingerstick) 340 mg/dL (70-99) 347 mg/dL (70-99) White Blood Count 20.5 x10^3/uL (4.0-11.0) Red Blood Count 4.79 x10^6/uL (3.50-5.40) Hemoglobin 10.6 g/dL (12.0-15.5) Hematocrit 34.5 % (36.0-47.0) Mean Corpuscular Volume 72 fL (79-100) Mean Corpuscular Hemoglobin 22 pg (25-35) Mean Corpuscular Hemoglobin Concent 31 g/dL (31-37) Red Cell Distribution Width 19.0 % (11.5-14.5) Platelet Count 78 x10^3/uL (140-400) Neutrophils (%) (Auto) 88 % (31-73) Lymphocytes (%) (Auto) 7 % (24-48) Monocytes (%) (Auto) 5 % (0-9) Eosinophils (%) (Auto) 0 % (0-3) Basophils (%) (Auto) 0 % (0-3) Neutrophils # (Auto) 18.1 x10^3/uL (1.8-7.7) Lymphocytes # (Auto) 1.4 x10^3/uL (1.0-4.8) Monocytes # (Auto) 0.9 x10^3/uL (0.0-1.1) Eosinophils # (Auto) 0.1 x10^3/uL (0.0-0.7) Basophils # (Auto) 0.0 x10^3/uL (0.0-0.2) Sodium Level 147 mmol/L (136-145) Potassium Level 4.6 mmol/L (3.5-5.1) Chloride Level 112 mmol/L (98-107) Carbon Dioxide Level 22 mmol/L (21-32) Anion Gap 13 (6-14) Blood Urea Nitrogen 57 mg/dL (7-20) Creatinine 1.0 mg/dL (0.6-1.0) Estimated GFR (Cockcroft-Gault) 55.8 Glucose Level 376 mg/dL (70-99) Calcium Level 8.8 mg/dL (8.5-10.1) Phosphorus Level 2.0 mg/dL (2.6-4.7) Magnesium Level 2.0 mg/dL (1.8-2.4) O2 Saturation 97 % (92-99) Arterial Blood pH 7.46 (7.35-7.45) Arterial Blood pCO2 at Patient Temp 29 mmHg (35-46) Arterial Blood pO2 at Patient Temp 87 mmHg (65-108) Arterial Blood HCO3 20 mmol/L (21-28) Arterial Blood Base Excess -3 mmol/L (-3-3) FiO2 35 Test 04/27/19 11:34 04/27/19 16:13 04/27/19 21:04 04/28/19 00:30 Glucose (Fingerstick) 372 mg/dL (70-99) 348 mg/dL (70-99) 355 mg/dL (70-99) 339 mg/dL (70-99) Test 04/28/19 04:44 04/28/19 05:30 04/28/19 07:53 Glucose (Fingerstick) 230 mg/dL (70-99) 228 mg/dL (70-99) White Blood Count 17.4 x10^3/uL (4.0-11.0) Red Blood Count 4.36 x10^6/uL (3.50-5.40) Hemoglobin 9.9 g/dL (12.0-15.5) Hematocrit 31.6 % (36.0-47.0) Mean Corpuscular Volume 73 fL (79-100) Mean Corpuscular Hemoglobin 23 pg (25-35) Mean Corpuscular Hemoglobin Concent 31 g/dL (31-37) Red Cell Distribution Width 18.7 % (11.5-14.5) Platelet Count 74 x10^3/uL (140-400) Neutrophils (%) (Auto) 85 % (31-73) Lymphocytes (%) (Auto) 8 % (24-48) Monocytes (%) (Auto) 6 % (0-9) Eosinophils (%) (Auto) 1 % (0-3) Basophils (%) (Auto) 0 % (0-3) Neutrophils # (Auto) 14.8 x10^3/uL (1.8-7.7) Lymphocytes # (Auto) 1.5 x10^3/uL (1.0-4.8) Monocytes # (Auto) 1.0 x10^3/uL (0.0-1.1) Eosinophils # (Auto) 0.1 x10^3/uL (0.0-0.7) Basophils # (Auto) 0.1 x10^3/uL (0.0-0.2) Sodium Level 147 mmol/L (136-145) Potassium Level 4.7 mmol/L (3.5-5.1) Chloride Level 114 mmol/L (98-107) Carbon Dioxide Level 22 mmol/L (21-32) Anion Gap 11 (6-14) Blood Urea Nitrogen 73 mg/dL (7-20) Creatinine 1.0 mg/dL (0.6-1.0) Estimated GFR (Cockcroft-Gault) 55.8 Glucose Level 249 mg/dL (70-99) Calcium Level 8.8 mg/dL (8.5-10.1) Phosphorus Level 2.9 mg/dL (2.6-4.7) Magnesium Level 2.2 mg/dL (1.8-2.4) Triglycerides Level 221 mg/dL (0-150) Laboratory Tests Test 04/27/19 11:34 04/27/19 16:13 04/27/19 21:04 04/28/19 00:30 Glucose (Fingerstick) 372 mg/dL (70-99) 348 mg/dL (70-99) 355 mg/dL (70-99) 339 mg/dL (70-99) Test 04/28/19 04:44 04/28/19 05:30 04/28/19 07:53 Glucose (Fingerstick) 230 mg/dL (70-99) 228 mg/dL (70-99) White Blood Count 17.4 x10^3/uL (4.0-11.0) Red Blood Count 4.36 x10^6/uL (3.50-5.40) Hemoglobin 9.9 g/dL (12.0-15.5) Hematocrit 31.6 % (36.0-47.0) Mean Corpuscular Volume 73 fL (79-100) Mean Corpuscular Hemoglobin 23 pg (25-35) Mean Corpuscular Hemoglobin Concent 31 g/dL (31-37) Red Cell Distribution Width 18.7 % (11.5-14.5) Platelet Count 74 x10^3/uL (140-400) Neutrophils (%) (Auto) 85 % (31-73) Lymphocytes (%) (Auto) 8 % (24-48) Monocytes (%) (Auto) 6 % (0-9) Eosinophils (%) (Auto) 1 % (0-3) Basophils (%) (Auto) 0 % (0-3) Neutrophils # (Auto) 14.8 x10^3/uL (1.8-7.7) Lymphocytes # (Auto) 1.5 x10^3/uL (1.0-4.8) Monocytes # (Auto) 1.0 x10^3/uL (0.0-1.1) Eosinophils # (Auto) 0.1 x10^3/uL (0.0-0.7) Basophils # (Auto) 0.1 x10^3/uL (0.0-0.2) Sodium Level 147 mmol/L (136-145) Potassium Level 4.7 mmol/L (3.5-5.1) Chloride Level 114 mmol/L (98-107) Carbon Dioxide Level 22 mmol/L (21-32) Anion Gap 11 (6-14) Blood Urea Nitrogen 73 mg/dL (7-20) Creatinine 1.0 mg/dL (0.6-1.0) Estimated GFR (Cockcroft-Gault) 55.8 Glucose Level 249 mg/dL (70-99) Calcium Level 8.8 mg/dL (8.5-10.1) Phosphorus Level 2.9 mg/dL (2.6-4.7) Magnesium Level 2.2 mg/dL (1.8-2.4) Triglycerides Level 221 mg/dL (0-150) Problem List Problems Medical Problems: (1) Diabetes Status: Acute (2) Fall Status: Acute (3) Severe sepsis Status: Acute (4) UTI (urinary tract infection) Status: Acute (5) Weakness Status: Acute Assessment/Plan incisional hernia pt is prohibitive surgical candidate d/w nursing and reviewed palliative care notes: plans to move to comfort care. Will sign off, but please call for questions. NATE SHORT MD Apr 28, 2019 09:22
--- NOTE | 2019-04-28 10:00 | NUR ---
Allergies and reactions NKDA INR BUN 73 Cr 1.0 Platelets 74 Blood culture done Yes blood culture results 04/26 Neg, 04/21 Neg, 04/19 Pos Gran+ Cocc Order Verified Yes Consent signed Yes Previous PICC placement Unkown Past Medical/Surgical history and current diagnosis reviewed Yes Patient Medical /Surgical History Related to PICC line placement Diabetes History of acute/chronic renal failure Infectious Disease consult Renal consult Septicemia/Bacteremia Special considerations for PICC line placement None PICC placement indication Poor peripheral Access correction antibiotic usage, Total Parenteral Nutrition (TPN) Larissa Soto RN, PICC Nurse Addendum: 04/28/19 at 1215 by LARISSA SOTO RN Amended: Links added.
--- NOTE | 2019-04-28 10:53 | PDOC ---
[facility] PROGRESS NOTE Chief Complaint Chief Complaint Acute hypercapnic respiratory failure/ARDS Likely aspiration pneumonia Bilateral lung infiltrates RADHA SBO Chronic lymphedema of lower extremities Leukocytosis Protein/Calorie Malnutrition Bacteremia History of Present Illness History of Present Illness 9�13�2019 Patient seen and examined She is still on the vent appears very ill critically ill Discussed with RN Vent settings AC/20/500/35% 5 PEEP On TPN Sedated 04/27/19 Pt seen/examined in the ICU and currently on vent (vent settings: AC/20/500/35% 5PEEP) Dawn to BSD Pt still has ET tube, OG tube to LIS Sedated with fentanyl 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 and precedex Glucose currently at 376 DW RN Sating at 100% 04/26/19 Pt seen and examined in ICU on vent (vent settings: AC/20/500/35% 5PEEP) pH 7.4 Dawn to BSD in place Pt still has ET tube; OG tube to LIS Sedated with fentanyl 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 and precedex DW RN RN taking pt for CT of abdomen Had fever overnight; given NS 1000 cc bolus Glucose taken by RN; Current glucose: 369 Currently sat-ing at 99% Chart reviewed 04/25/19 Pt seen and examined in ICU on vent (vent settings: AC/20/500/40% Peep16) Pt has ET tube and OG tube to LIS Pt has dawn to BSD Sedated with precedex and fentanyl 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 DW RN DW case maker chart reviewed Vitals/I&O Vitals/I&O: Vital Signs Date Time Temp Pulse Resp B/P (MAP) Pulse Ox O2 Delivery O2 Flow Rate FiO2 04/28/19 10:00 85 33 96/66 (76) 99 Ventilator 04/28/19 08:00 101.2 101.2 04/28/19 04:56 98.0 I & O 04/27/19 04/27/19 04/28/19 14:59 22:59 06:59 Intake Total 200 ml 1169 ml 1081 ml Output Total 455 ml 325 ml 180 ml Balance -255 ml 844 ml 901 ml Physical Exam Physical Exam: GENERAL: Orally intubated, sedated, mitts HEENT: Pupils equal, small. ETT/ OGT with green colored output NECK: Supple. Left EJ , LUNGS: dec bs at bases HEART: S1, S2 ,no murmurs ABDOMEN: Soft, Umbilical hernia present. Large pannus present. EXTREMITIES: Both lower extremities have venous insufficiency, stasis dermatitis on both the legs posteriorly. Trace edema SKIN: Warm to touch. sacral wound NEUROLOGIC: Sedated on vent RIJ clean General: No acute distress Heart: Regular rate, Other (distant heart tones ) Lungs: Other (deminished) Abdomen: Soft, Other (hernia, non reducible) Extremities: Other (extensive lymphedema) Skin: No rashes, No significant lesion Labs Labs: Laboratory Tests Test 04/27/19 11:34 04/27/19 16:13 04/27/19 21:04 04/28/19 00:30 Glucose (Fingerstick) 372 mg/dL (70-99) 348 mg/dL (70-99) 355 mg/dL (70-99) 339 mg/dL (70-99) Test 04/28/19 04:44 04/28/19 05:30 04/28/19 07:53 Glucose (Fingerstick) 230 mg/dL (70-99) 228 mg/dL (70-99) White Blood Count 17.4 x10^3/uL (4.0-11.0) Red Blood Count 4.36 x10^6/uL (3.50-5.40) Hemoglobin 9.9 g/dL (12.0-15.5) Hematocrit 31.6 % (36.0-47.0) Mean Corpuscular Volume 73 fL (79-100) Mean Corpuscular Hemoglobin 23 pg (25-35) Mean Corpuscular Hemoglobin Concent 31 g/dL (31-37) Red Cell Distribution Width 18.7 % (11.5-14.5) Platelet Count 74 x10^3/uL (140-400) Neutrophils (%) (Auto) 85 % (31-73) Lymphocytes (%) (Auto) 8 % (24-48) Monocytes (%) (Auto) 6 % (0-9) Eosinophils (%) (Auto) 1 % (0-3) Basophils (%) (Auto) 0 % (0-3) Neutrophils # (Auto) 14.8 x10^3/uL (1.8-7.7) Lymphocytes # (Auto) 1.5 x10^3/uL (1.0-4.8) Monocytes # (Auto) 1.0 x10^3/uL (0.0-1.1) Eosinophils # (Auto) 0.1 x10^3/uL (0.0-0.7) Basophils # (Auto) 0.1 x10^3/uL (0.0-0.2) Sodium Level 147 mmol/L (136-145) Potassium Level 4.7 mmol/L (3.5-5.1) Chloride Level 114 mmol/L (98-107) Carbon Dioxide Level 22 mmol/L (21-32) Anion Gap 11 (6-14) Blood Urea Nitrogen 73 mg/dL (7-20) Creatinine 1.0 mg/dL (0.6-1.0) Estimated GFR (Cockcroft-Gault) 55.8 Glucose Level 249 mg/dL (70-99) Calcium Level 8.8 mg/dL (8.5-10.1) Phosphorus Level 2.9 mg/dL (2.6-4.7) Magnesium Level 2.2 mg/dL (1.8-2.4) Triglycerides Level 221 mg/dL (0-150) Review of Systems Review of Systems: Unable to obtain patient is sedated Assessment and Plan Assessmemt and Plan Problems Medical Problems: (1) Diabetes Status: Acute (2) Fall Status: Acute (3) Severe sepsis Status: Acute (4) UTI (urinary tract infection) Status: Acute (5) Weakness Status: Acute Acute hypercapnic respiratory failure/ARDS Likely aspiration pneumonia Bilateral lung infiltrates RADHA SBO Diabetes Mellitus Chronic lymphedema of lower extremities Leukocytosis Protein/Calorie Malnutrition Bacteremia Plan ICU monitoring Proceed with vent weaning Continue sedation with precedex and fentanyl 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 Dawn to BSD Maintain OG to LIS sliding scale insulin Q4 20 Lantus Sub q24 hrs Accucheck Q4hr Prognosis guarded Trend labs DVT prophylaxis TPN PICC line today Full code Appreciate subspecialty input Total time 32 minutes Comment Review of Relevant I have reviewed the following items ashok (where applicable) has been applied. Medications: Current Medications Medications (Trade) Dose Ordered Sig/[place] Route PRN Reason Start Time Stop Time Status Last Admin Dose Admin Insulin Human Lispro (HumaLOG) 0-9 UNITS Q4HRS SQ 04/27/19 12:00 04/28/19 07:58 Insulin Glargine (Lantus Syringe) 20 unit QHS SQ 04/27/19 21:00 04/27/19 21:06 Potassium Phosphate 13.6 mmol/Dextrose 104.5333 ml @ 52.267 m... ONCE ONCE IV 04/27/19 13:00 04/27/19 14:59 DC 04/27/19 13:09 Insulin Human Lispro (HumaLOG) 20 units 1X ONCE SQ 04/27/19 11:45 04/27/19 11:46 DC 04/27/19 11:53 Sodium Acetate 70 meq/Sodium Phosphate 10 mmol/ Potassium Chloride 30 meq/ Potassium Phosphate 18 mmol/ Magnesium Sulfate 10 meq/ Multivitamins 10 ml/Chromium/ Copper/Manganese/ Seleni/Zn 1 ml/ Insulin Human Regular 20 unit/ Total Parenteral Nutrition/Amino Acids/Dextrose/ Fat Emuls... 1,512 ml @ 63 mls/hr TPN CONT IV 04/27/19 22:00 04/28/19 21:59 04/27/19 21:13 Linezolid/Dextrose 300 ml @ 300 mls/hr Q12HR IV 04/28/19 09:00 04/28/19 09:33 CHRIS PHILLIPS III DO Apr 28, 2019 10:53
--- NOTE | 2019-04-28 11:00 | NUR ---
Attempted to placed Right upper arm PICC--able to access Brachial vessel 4 times but unable to thread catheter. Will attempt on patient's Left upper arm. Addendum: 04/28/19 at 1219 by NATHANIEL LIMON RN Amended: Links added.
[2019-04-28] MEDS: DAPTOMYCIN IV SCH (11:18)
[2019-04-28] MEDS: NORMAL SALINE IV SCH (11:18)
[2019-04-28 11:37] LABS: FIO2 ABG 35%
--- NOTE | 2019-04-28 11:45 | NUR ---
Procedure: Following complete explanation of the PICC procedure including the indications, risks, and potential complications, informed consent was obtained. The possibility for infection was discussed along with signs, symptoms, and prevention. All the questions were answered. Written and verbal patient education was provided. Hand hygiene performed. Standardized central line checklist was utilized. The patient was placed in the supine position, the arm was prepped with chlorhexidine and patient draped with maximum sterile barrier. 2 mL 1% lidocaine was infiltrated into the skin to provide local anesthesia. A thorough assessment of Left upper extremity completed. Using real-time ultrasound guidance and standardized micro puncture set, the Basilic vein was punctured and a peel away sheath was placed using the modified Seldinger technique. A tip location device was used to ensure adequate catheter placement. The catheter was secured using a securement device and an antimicrobial patch was applied directly on the insertion site followed by a transparent dressing. All ports withdraw blood and flush without resistance. Patient tolerated the procedure without apparent complication(s). Triple Lumen Power PICC placement successful and uncomplicated. Placement verified by EKG tip confirmation system and. Tip located in the Cavoatrial Junction. Complications: Initial attempt to Right Brachial vein but unable to thread catheter after 3 attempts; placed Left Brachial without complications. Catheter trimmed to 52 and inserted to 1CM. Addendum: 04/28/19 at 1223 by NATHANIEL LIMON RN Amended: Links added.
--- NOTE | 2019-04-28 12:20 | PDOC ---
PULMONARY PROGRESS NOTES Subjective on vent, on peep 5, fio2 40%, sedated ,off levo, v recurrent fever, lactic acidosis Vitals Vital Signs Date Time Temp Pulse Resp B/P (MAP) Pulse Ox O2 Delivery O2 Flow Rate FiO2 04/28/19 12:17 81 89/55 04/28/19 11:45 99 Ventilator 04/28/19 10:00 33 04/28/19 08:00 101.2 101.2 04/28/19 04:56 98.0 Comments ros as mentioned as above discussed w rn other sys otherwise neg on vent sedated Lungs: Other (deminished) Cardiovascular: S1, S2 Abdomen: Other (distended obese deminished bs) Extremities: Other (lymphedema) Skin: Warm Labs Laboratory Tests Test 04/26/19 14:50 04/26/19 18:19 04/27/19 00:40 04/27/19 05:26 Lactic Acid Level 3.8 mmol/L (0.4-2.0) Glucose (Fingerstick) 350 mg/dL (70-99) 384 mg/dL (70-99) 340 mg/dL (70-99) Test 04/27/19 05:30 04/27/19 08:49 04/27/19 08:50 04/27/19 11:34 White Blood Count 20.5 x10^3/uL (4.0-11.0) Red Blood Count 4.79 x10^6/uL (3.50-5.40) Hemoglobin 10.6 g/dL (12.0-15.5) Hematocrit 34.5 % (36.0-47.0) Mean Corpuscular Volume 72 fL (79-100) Mean Corpuscular Hemoglobin 22 pg (25-35) Mean Corpuscular Hemoglobin Concent 31 g/dL (31-37) Red Cell Distribution Width 19.0 % (11.5-14.5) Platelet Count 78 x10^3/uL (140-400) Neutrophils (%) (Auto) 88 % (31-73) Lymphocytes (%) (Auto) 7 % (24-48) Monocytes (%) (Auto) 5 % (0-9) Eosinophils (%) (Auto) 0 % (0-3) Basophils (%) (Auto) 0 % (0-3) Neutrophils # (Auto) 18.1 x10^3/uL (1.8-7.7) Lymphocytes # (Auto) 1.4 x10^3/uL (1.0-4.8) Monocytes # (Auto) 0.9 x10^3/uL (0.0-1.1) Eosinophils # (Auto) 0.1 x10^3/uL (0.0-0.7) Basophils # (Auto) 0.0 x10^3/uL (0.0-0.2) Sodium Level 147 mmol/L (136-145) Potassium Level 4.6 mmol/L (3.5-5.1) Chloride Level 112 mmol/L (98-107) Carbon Dioxide Level 22 mmol/L (21-32) Anion Gap 13 (6-14) Blood Urea Nitrogen 57 mg/dL (7-20) Creatinine 1.0 mg/dL (0.6-1.0) Estimated GFR (Cockcroft-Gault) 55.8 Glucose Level 376 mg/dL (70-99) Calcium Level 8.8 mg/dL (8.5-10.1) Phosphorus Level 2.0 mg/dL (2.6-4.7) Magnesium Level 2.0 mg/dL (1.8-2.4) Glucose (Fingerstick) 347 mg/dL (70-99) 372 mg/dL (70-99) O2 Saturation 97 % (92-99) Arterial Blood pH 7.46 (7.35-7.45) Arterial Blood pCO2 at Patient Temp 29 mmHg (35-46) Arterial Blood pO2 at Patient Temp 87 mmHg (65-108) Arterial Blood HCO3 20 mmol/L (21-28) Arterial Blood Base Excess -3 mmol/L (-3-3) FiO2 35 Test 04/27/19 16:13 04/27/19 21:04 04/28/19 00:30 04/28/19 04:44 Glucose (Fingerstick) 348 mg/dL (70-99) 355 mg/dL (70-99) 339 mg/dL (70-99) 230 mg/dL (70-99) Test 04/28/19 05:30 04/28/19 07:30 04/28/19 07:53 White Blood Count 17.4 x10^3/uL (4.0-11.0) Red Blood Count 4.36 x10^6/uL (3.50-5.40) Hemoglobin 9.9 g/dL (12.0-15.5) Hematocrit 31.6 % (36.0-47.0) Mean Corpuscular Volume 73 fL (79-100) Mean Corpuscular Hemoglobin 23 pg (25-35) Mean Corpuscular Hemoglobin Concent 31 g/dL (31-37) Red Cell Distribution Width 18.7 % (11.5-14.5) Platelet Count 74 x10^3/uL (140-400) Neutrophils (%) (Auto) 85 % (31-73) Lymphocytes (%) (Auto) 8 % (24-48) Monocytes (%) (Auto) 6 % (0-9) Eosinophils (%) (Auto) 1 % (0-3) Basophils (%) (Auto) 0 % (0-3) Neutrophils # (Auto) 14.8 x10^3/uL (1.8-7.7) Lymphocytes # (Auto) 1.5 x10^3/uL (1.0-4.8) Monocytes # (Auto) 1.0 x10^3/uL (0.0-1.1) Eosinophils # (Auto) 0.1 x10^3/uL (0.0-0.7) Basophils # (Auto) 0.1 x10^3/uL (0.0-0.2) Sodium Level 147 mmol/L (136-145) Potassium Level 4.7 mmol/L (3.5-5.1) Chloride Level 114 mmol/L (98-107) Carbon Dioxide Level 22 mmol/L (21-32) Anion Gap 11 (6-14) Blood Urea Nitrogen 73 mg/dL (7-20) Creatinine 1.0 mg/dL (0.6-1.0) Estimated GFR (Cockcroft-Gault) 55.8 Glucose Level 249 mg/dL (70-99) Calcium Level 8.8 mg/dL (8.5-10.1) Phosphorus Level 2.9 mg/dL (2.6-4.7) Magnesium Level 2.2 mg/dL (1.8-2.4) Triglycerides Level 221 mg/dL (0-150) O2 Saturation 97 % (92-99) Arterial Blood pH 7.40 (7.35-7.45) Arterial Blood pCO2 at Patient Temp 28 mmHg (35-46) Arterial Blood pO2 at Patient Temp 98 mmHg (65-108) Arterial Blood HCO3 17 mmol/L (21-28) Arterial Blood Base Excess -7 mmol/L (-3-3) FiO2 35% Glucose (Fingerstick) 228 mg/dL (70-99) Laboratory Tests Test 04/27/19 16:13 04/27/19 21:04 04/28/19 00:30 04/28/19 04:44 Glucose (Fingerstick) 348 mg/dL (70-99) 355 mg/dL (70-99) 339 mg/dL (70-99) 230 mg/dL (70-99) Test 04/28/19 05:30 04/28/19 07:30 04/28/19 07:53 White Blood Count 17.4 x10^3/uL (4.0-11.0) Red Blood Count 4.36 x10^6/uL (3.50-5.40) Hemoglobin 9.9 g/dL (12.0-15.5) Hematocrit 31.6 % (36.0-47.0) Mean Corpuscular Volume 73 fL (79-100) Mean Corpuscular Hemoglobin 23 pg (25-35) Mean Corpuscular Hemoglobin Concent 31 g/dL (31-37) Red Cell Distribution Width 18.7 % (11.5-14.5) Platelet Count 74 x10^3/uL (140-400) Neutrophils (%) (Auto) 85 % (31-73) Lymphocytes (%) (Auto) 8 % (24-48) Monocytes (%) (Auto) 6 % (0-9) Eosinophils (%) (Auto) 1 % (0-3) Basophils (%) (Auto) 0 % (0-3) Neutrophils # (Auto) 14.8 x10^3/uL (1.8-7.7) Lymphocytes # (Auto) 1.5 x10^3/uL (1.0-4.8) Monocytes # (Auto) 1.0 x10^3/uL (0.0-1.1) Eosinophils # (Auto) 0.1 x10^3/uL (0.0-0.7) Basophils # (Auto) 0.1 x10^3/uL (0.0-0.2) Sodium Level 147 mmol/L (136-145) Potassium Level 4.7 mmol/L (3.5-5.1) Chloride Level 114 mmol/L (98-107) Carbon Dioxide Level 22 mmol/L (21-32) Anion Gap 11 (6-14) Blood Urea Nitrogen 73 mg/dL (7-20) Creatinine 1.0 mg/dL (0.6-1.0) Estimated GFR (Cockcroft-Gault) 55.8 Glucose Level 249 mg/dL (70-99) Calcium Level 8.8 mg/dL (8.5-10.1) Phosphorus Level 2.9 mg/dL (2.6-4.7) Magnesium Level 2.2 mg/dL (1.8-2.4) Triglycerides Level 221 mg/dL (0-150) O2 Saturation 97 % (92-99) Arterial Blood pH 7.40 (7.35-7.45) Arterial Blood pCO2 at Patient Temp 28 mmHg (35-46) Arterial Blood pO2 at Patient Temp 98 mmHg (65-108) Arterial Blood HCO3 17 mmol/L (21-28) Arterial Blood Base Excess -7 mmol/L (-3-3) FiO2 35% Glucose (Fingerstick) 228 mg/dL (70-99) Medications Active Scripts Medications Dose Route/Sig Max Daily Dose Days Date Category No Known Medications Prior To Admisstion (Info) Each 1 Each 1X 04/20/[address] abdomen Limited exam due to lack of IV contrast. 1. Bilateral lung bases consolidations, left more than right may be secondary to atelectasis or pneumonia. 2. Cirrhosis with evidence of portal venous hypertension. Stable small volume ascites. 3. Umbilical hernia containing focal loop of small bowel with resolution of previously seen dilated bowel loops. No imaging evidence of high-grade bowel obstruction. 4. Enlarged retroperitoneal and inguinal lymph nodes concerning for lymphoma or metastasis. 5. Omental nodularity suggests a metastasis or pneumatosis. 6. Left adnexal masslike lesion may be of ovarian origin or pedunculated fibroid. Nonemergent MRI of the pelvis with IV contrast recommended. Electronically signed by: Miguel Hampton DO (04/26/2019 1:19 PM) [facility] Impression . IMPRESSION: 1. Acute hypercapnic respiratory failure secondary to multifactorial etiologies and likely underlying hypovolemic and septic shock., now with recurrent fever, lactic acidosis 2. bilateral infiltrates, likely related to aspiration pneumonia. 3. Acute kidney injury secondary to hypotension and shock. 4. Small bowel obstruction. She has been seen by Surgery and not a surgical candidate. Over 2 liters of fluid came out from her orogastric tube upon insertion. 5. Chronic lymphedema of the lower extremities. 6. Leukocytosis. 7. Moderate protein-calorie malnutrition. 8. fever, 9. bacteremia, gram +cocci, recent MSSA bacteremia 10. Abnormal ct abdomen with suspected lymphoma vs malignancy Plan . 1. Continue vent support, setting reviewed, back on sedation.not stable for sbt. 2. Broad-spectrum antibiotic per Infectious Disease recommendations. 3. Follow all cultures. 4. Renal consultation / rec. 5. Follow Surgery recommendations. 6. Follow GI recommendations. 7. DVT and stress ulcer prophylaxis. 8. Prognosis appears to be grim. I had a long discussion with 04/27. explained multiple organ involvement and abnormal ct abd findings. He understands and agrees for comfort care.plan for withdrawl of care Wednesday TYE MADRIGAL MD Apr 28, 2019 12:20
--- NOTE | 2019-04-28 13:31 | PDOC ---
Objective: Vital Signs: Vital Signs Date Time Temp Pulse Resp B/P (MAP) Pulse Ox O2 Delivery O2 Flow Rate FiO2 04/28/19 12:37 100 Ventilator 04/28/19 12:17 81 89/55 04/28/19 10:00 33 04/28/19 08:00 101.2 101.2 04/28/19 04:56 98.0 Labs: Laboratory Tests Test 04/27/19 16:13 04/27/19 21:04 04/28/19 00:30 04/28/19 04:44 Glucose (Fingerstick) 348 mg/dL 355 mg/dL 339 mg/dL 230 mg/dL Test 04/28/19 05:30 04/28/19 07:30 04/28/19 07:53 04/28/19 12:13 White Blood Count 17.4 x10^3/uL Red Blood Count 4.36 x10^6/uL Hemoglobin 9.9 g/dL Hematocrit 31.6 % Mean Corpuscular Volume 73 fL Mean Corpuscular Hemoglobin 23 pg Mean Corpuscular Hemoglobin Concent 31 g/dL Red Cell Distribution Width 18.7 % Platelet Count 74 x10^3/uL Neutrophils (%) (Auto) 85 % Lymphocytes (%) (Auto) 8 % Monocytes (%) (Auto) 6 % Eosinophils (%) (Auto) 1 % Basophils (%) (Auto) 0 % Neutrophils # (Auto) 14.8 x10^3/uL Lymphocytes # (Auto) 1.5 x10^3/uL Monocytes # (Auto) 1.0 x10^3/uL Eosinophils # (Auto) 0.1 x10^3/uL Basophils # (Auto) 0.1 x10^3/uL Sodium Level 147 mmol/L Potassium Level 4.7 mmol/L Chloride Level 114 mmol/L Carbon Dioxide Level 22 mmol/L Anion Gap 11 Blood Urea Nitrogen 73 mg/dL Creatinine 1.0 mg/dL Estimated GFR (Cockcroft-Gault) 55.8 Glucose Level 249 mg/dL Calcium Level 8.8 mg/dL Phosphorus Level 2.9 mg/dL Magnesium Level 2.2 mg/dL Triglycerides Level 221 mg/dL O2 Saturation 97 % Arterial Blood pH 7.40 Arterial Blood pCO2 at Patient Temp 28 mmHg Arterial Blood pO2 at Patient Temp 98 mmHg Arterial Blood HCO3 17 mmol/L Arterial Blood Base Excess -7 mmol/L FiO2 35% Glucose (Fingerstick) 228 mg/dL 231 mg/dL PE: GEN: intubated LUNGS: vent ABD: quiet NEURO/PSYCH: sedated A/P: MSSA bacteremia, resp failure/pneumonia, SBO/umbilical hernia Left adnexal mass, lymphadenopathy (retroperitoneal, inguinal - ?mets), cirrhosis/portal hypertension Anemia, thrombocytopenia, leukocytosis -- D/w nurse and reviewed chart - plans for comfort care on Wednesday after daughter can come visit. DESHAWN SALEH Apr 28, 2019 13:30 ELMER CASTREJON MD Apr 28, 2019 15:00
[2019-04-28] MEDS: TPN PER PHARMACY MC PRN (13:36)
--- NOTE | 2019-04-28 15:45 | NUR ---
16 serbian dawn continues to leak. Dawn cath irrigated with sterile water and all of the water came out from around the dawn. Old dawn removed and new 18 Bel[place]ian dawn placed via sterile technique. Immediate return of orange to bloody urine with dark brown flecks noted.
--- NOTE | 2019-04-28 16:00 | NUR ---
Pharmacy TPN Dosing Note S: XENA LEE is a 63 year old F Currently receiving Central Continuous TPN started 04/25/19 B:Pertinent PMH: SBO Height: 5 feet, 3 inches Weight: 106.802226 kg Current diet: NPO LABS: Sodium: 147 Potassium: 4.7 Chloride: 114 Calcium: 8.8 Corrected Calcium: 10.08 Magnesium: 2.2 CO2: 22 SCr: 1 Glucose: 231 Albumin: 2.4 AST: 44 ALT: 28 TPN FORMULA: TPN TYPE: Central Continuous AMINO ACIDS: 115 gm DEXTROSE: 250 gm LIPIDS: 30 gm SODIUM CHLORIDE: - mEq SODIUM ACETATE: 70 mEq SODIUM PHOSPHATE: 10 mmol POTASSIUM CHLORIDE: 0 mEq POTASSIUM ACETATE: 30 mEq POTASSIUM PHOSPHATE: 18 mmol MAGNESIUM: 10 mEq CALCIUM: - mEq INSULIN: 20 units MULTIPLE VITAMIN: 10 ml TRACE ELEMENTS: 1 ml(s) TPN PLAN: -Continue Macros per dietary recommendations -Kcl changed to Kacetate since cl is on the rise and volume increased slightly to 1560 from 1512 ml since Na is still elevated. R: Continue TPN as noted above Will monitor electrolytes, glucose, and tolerance to TPN. LANE TAMEZ, [facility], 04/28/19 [id number]
[2019-04-28] MEDS: IV NORMAL SALINE 1000ML BAG 1,000 ML IV SCH (17:24)
[2019-04-28] MEDS: MIDAZOLAM 100mg/100ml NS BAG 100 ML IV PRN (17:24)
[2019-04-28] MEDS: ACETAMINOPHEN 650 MG SUPP.RECT. PR PRN (20:04)
[2019-04-28] MEDS: INSULIN GLARGINE SYRINGE. SQ SCH (20:37)
[2019-04-28] MEDS ORDERED: [UNRECOGNIZED DRUG - OTHER] IV SCH ×11 (22:00)
[2019-04-28] MEDS ORDERED: AMINO ACID IV SCH ×11 (22:00)
[2019-04-28] MEDS ORDERED: DEXTROSE 70% IV SCH ×11 (22:00)
[2019-04-28] MEDS ORDERED: TOTAL PARENTERAL NUTRITION IV SCH ×11 (22:00)
[2019-04-28] MEDS: NOREPINEPHRIN 8MG/250ML PREMIX 250 ML IV PRN (22:43)
[2019-04-29] VITALS (25 sets, daily range): BP systolic 93–124; BP diastolic 54–91
[2019-04-29] MEDS: INSULIN LISPRO 300 UNITS/3 ML VIAL. SQ SCH ×6 (00:56→20:31)
[2019-04-29] MEDS: MEROPENEM 500 MG in IV NORMAL SALINE 50ML 50 ML IV SCH ×5 (00:59→23:38)
--- NOTE | 2019-04-29 02:46 | NUR ---
PRN Levophed started this shift d/t decreased BP. BP prior to administration was 55/38. Pt currently on 0.02 mcg/kg/min, which is 4 mls/hr. Pt tolerating, with SBP staying above 90. Last BP 97/60. Pt continues to be intubated and sedated at this time. Will continue to monitor.
[2019-04-29] MEDS: DEXMEDETOMIDINE 400 MCG in IV NORMAL SALINE 100ML 96 ML IV PRN ×4 (04:48→21:02)
[2019-04-29 05:52] LABS: BASO # 0.1 x10^3/uL (0.0-0.2); BASO % 1 % (0-3); EOS # 0.1 x10^3/uL (0.0-0.7); EOS % 1 % (0-3); HEMATOCRIT 31.6 % (36.0-47.0); HEMOGLOBIN 9.7 g/dL (12.0-15.5); LYMPH # 1.3 x10^3/uL (1.0-4.8); LYMPH % 6 % (24-48); MEAN CORPUSCULAR HEMOGLOBIN 23 pg (25-35); MEAN CORPUSCULAR HGB CONC 31 g/dL (31-37); MEAN CORPUSCULAR VOLUME 74 fL (79-100); MONO # 1.1 x10^3/uL (0.0-1.1); MONO % 5 % (0-9); NEUT # 21.7 x10^3/uL (1.8-7.7); NEUT % 89 % (31-73); PLATELET COUNT 88 x10^3/uL (140-400); RED BLOOD COUNT 4.28 x10^6/uL (3.50-5.40); RED CELL DISTRIBUTION WIDTH 18.4 % (11.5-14.5); WHITE BLOOD COUNT 24.5 x10^3/uL (4.0-11.0)
[2019-04-29 06:00] LABS: CALCIUM 8.3 mg/dL (8.5-10.1); CREATININE 1.1 mg/dL (0.6-1.0); POTASSIUM 4.9 mmol/L (3.5-5.1)
[2019-04-29] MEDS: METOPROLOL TARTRATE 5 MG/5 ML VIAL. IVP SCH ×5 (06:00→23:39)
[2019-04-29 06:05] LABS: MAGNESIUM 2.1 mg/dL (1.8-2.4); PHOSPHORUS 3.3 mg/dL (2.6-4.7)
[2019-04-29] MEDS: IV NORMAL SALINE 1000ML BAG 1,000 ML IV SCH (06:16)
[2019-04-29] MEDS: MIDAZOLAM 100mg/100ml NS BAG 100 ML IV PRN (08:23)
[2019-04-29] MEDS: PANTOPRAZOLE IV PUSH 40 MG VIAL. IVP SCH (08:24)
[2019-04-29] MEDS: MICAFUNGIN 100 MG in IV DEXTROSE 5% 100ML 100 ML IV SCH (08:26)
--- NOTE | 2019-04-29 08:26 | PDOC ---
Infectious Disease Note Subjective: Subjective Pt condition deteriorated now on pressors remains febrile Remains orally intubated/vent d/w rn no diarrhea UO low wbc high lactic acidosis IJ and EJ removed yesterday has picc line Vital Signs: Vital Signs Vital Signs Date Time Temp Pulse Resp B/P (MAP) Pulse Ox O2 Delivery O2 Flow Rate FiO2 04/29/19 07:37 99 Ventilator 04/29/19 07:00 85 20 97/61 (73) 04/29/19 04:00 98.1 98.1 Physical Exam: PHYSICAL EXAM GENERAL: Orally intubated, sedated, mitts HEENT: Pupils equal, small. ETT/ OGT with green colored output NECK: Supple. Left EJ ,out LUNGS: dec bs at bases HEART: S1, S2 ,no murmurs ABDOMEN: Soft, Umbilical hernia present. Large pannus present. EXTREMITIES: Both lower extremities have venous insufficiency, stasis dermatitis on both the legs posteriorly. Trace edema SKIN: Warm to touch. sacral wound NEUROLOGIC: Sedated on vent RT IJ out PICC line (04/28) Medications: Inpatient Meds: Current Medications Medications (Trade) Dose Ordered Sig/[place] Start Time Stop Time Status Last Admin Dose Admin Acetaminophen (Tylenol Supp) 650 mg PRN Q6HRS PRN 04/21/19 16:45 04/28/19 20:04 650 MG Acetaminophen (Tylenol) 650 mg PRN Q6HRS PRN 04/22/19 00:15 Cancel Albumin Human 100 ml @ 100 mls/hr TID 04/22/19 14:00 04/24/19 09:59 DC 04/24/19 08:10 100 MLS/HR Amino Acids/ Glycerin/ Electrolytes 1,000 ml @ 80 mls/hr [id number] 04/23/19 14:00 04/25/19 21:59 DC 04/25/19 17:31 80 MLS/HR Atropine Sulfate (ATROPINE 0.5mg SYRINGE) 0.5 mg PRN Q5MIN PRN 04/20/19 23:30 Ceftriaxone Sodium (Rocephin) 1 gm 1X ONCE 04/19/19 18:45 04/19/19 18:46 DC 04/19/19 19:17 1 GM Daptomycin 720 mg/ Sodium Chloride 50 ml @ 100 mls/hr ONCE ONCE 04/22/19 16:00 04/22/19 16:29 DC 04/22/19 15:06 100 MLS/HR Daptomycin 760 mg/ Sodium Chloride 50 ml @ 100 mls/hr ONCE ONCE 04/23/19 13:00 04/23/19 13:29 DC 04/23/19 13:02 100 MLS/HR Daptomycin 780 mg/ Sodium Chloride 50 ml @ 100 mls/hr Q24H 04/26/19 10:00 04/28/19 11:18 100 MLS/HR Dexmedetomidine HCl 400 mcg/ Sodium Chloride 100 ml @ 0 mls/hr CONT PRN 04/20/19 23:30 04/29/19 04:48 19.8 MLS/HR Dextrose 250 ml PRN Q15MIN PRN 04/19/19 19:30 Dextrose (Dextrose 50%-Water Syringe) 12.5 gm PRN Q15MIN PRN 04/19/19 19:30 Enoxaparin Sodium (Lovenox 60mg Syringe) 60 mg Q12HR 04/21/19 21:00 04/22/19 15:40 DC 04/21/19 20:45 60 MG Epinephrine HCl 4 mg/Sodium Chloride 254 ml @ 42.935 mls/ hr CONT PRN 04/21/19 05:00 Fentanyl Citrate 30 ml @ 0 mls/hr CONT PRN PRN 04/20/19 17:15 04/29/19 00:57 2.5 MLS/HR Info (Tpn Per Pharmacy) 1 each PRN DAILY PRN 04/25/19 11:15 04/28/19 13:36 1 EACH Insulin Glargine (Lantus Syringe) 20 unit QHS 04/27/19 21:00 04/28/19 20:38 20 UNIT Insulin Human Lispro (HumaLOG) 20 units 1X ONCE 04/27/19 11:45 04/27/19 11:46 DC 04/27/19 11:53 20 UNITS Lactic Acid (Lac-Hydrin) 1 gauri BID 04/20/19 21:00 04/28/19 20:38 1 GAURI Lidocaine HCl (Xylocaine 2% Topical 5gm Tube) 5 gauri STK-MED ONCE 04/19/19 12:00 04/21/19 10:21 DC Linezolid/Dextrose 300 ml @ 300 mls/hr Q12HR 04/28/19 09:00 04/28/19 20:38 300 MLS/HR Lorazepam (Ativan Inj) 1 mg PRN 1X ONCE 04/20/19 16:15 04/20/19 16:16 DC Meropenem 500 mg/ Sodium Chloride 50 ml @ 100 mls/hr Q6HRS 04/25/19 12:00 04/29/19 06:08 100 MLS/HR Metoprolol Tartrate (Lopressor Vial) 2.5 mg Q6HRS 04/20/19 14:30 04/27/19 17:52 2.5 MG Metoprolol Tartrate (Lopressor) 25 mg BID 04/20/19 14:00 04/20/19 13:34 DC Micafungin Sodium 100 mg/Dextrose 100 ml @ 100 mls/hr Q24H 04/26/19 08:30 04/28/19 07:51 100 MLS/HR Midazolam HCl 100 ml @ 5 mls/hr CONT PRN 04/20/19 17:15 04/28/19 17:24 5 MLS/HR Midazolam HCl (Versed) 5 mg 1X ONCE 04/20/19 17:15 04/20/19 17:19 DC 04/20/19 17:38 5 MG Naloxone HCl (Narcan) 0.4 mg PRN Q2MIN PRN 04/20/19 17:15 Norepinephrine Bitartrate 250 ml @ 21.129 mls/ hr CONT PRN 04/20/19 17:30 UNV Ondansetron HCl (Zofran) 4 mg PRN Q6HRS PRN 04/20/19 10:00 04/20/19 16:04 4 MG Pantoprazole Sodium (PROTONIX VIAL for IV PUSH) 40 mg DAILYAC 04/20/19 12:30 04/28/19 07:51 40 MG Piperacillin Sod/ Tazobactam Sod 3.375 gm/Sodium Chloride 50 ml @ 100 mls/hr Q6HRS 04/20/19 18:00 04/25/19 07:48 DC 04/25/19 06:21 100 MLS/HR Potassium Chloride/Water 100 ml @ 100 mls/hr Q1H 04/20/19 12:00 04/20/19 15:59 DC 04/21/19 07:22 100 MLS/HR Potassium Phosphate 13.6 mmol/Dextrose 104.5333 ml @ 52.267 m... ONCE ONCE 04/27/19 13:00 04/27/19 14:59 DC 04/27/19 13:09 52.267 MLS/HR Potassium Phosphate 15 mmol/ Sodium Chloride 255 ml @ 127.5 mls/ hr 1X ONCE 04/25/19 14:00 04/25/19 15:59 DC 04/25/19 15:06 127.5 MLS/HR Potassium Chloride (Klor-Con) 40 meq 1X ONCE 04/20/19 11:30 04/20/19 11:31 Cancel Propofol 100 ml @ 1.69 mls/hr CONT PRN 04/20/19 17:15 04/20/19 17:36 6.761 MLS/HR Rocuronium Spencer (Zemuron) 50 mg STK-MED ONCE 04/20/19 18:00 04/21/19 09:09 DC Sodium Acetate 70 meq/Sodium Phosphate 10 mmol/ Potassium Chloride 30 meq/ Potassium Phosphate 18 mmol/ Magnesium Sulfate 10 meq/ Multivitamins 10 ml/Chromium/ Copper/Manganese/ Seleni/Zn 1 ml/ Insulin Human Regular 20 unit/ Total Parenteral Nutrition/Amino Acids/Dextrose/ Fat Emuls... 1,512 ml @ 63 mls/hr TPN CONT 04/27/19 22:00 04/28/19 21:59 DC 04/27/19 21:13 63 MLS/HR Sodium Acetate 70 meq/Sodium Phosphate 10 mmol/ Potassium Phosphate 18 mmol/ Magnesium Sulfate 10 meq/ Multivitamins 10 ml/Chromium/ Copper/Manganese/ Seleni/Zn 1 ml/ Insulin Human Regular 20 unit/ Potassium Acetate 30 meq/Total Parenteral Nutrition/Amino Acids/Dextrose/ Fat Emuls... 1,560 ml @ 65 mls/hr TPN CONT 04/28/19 22:00 04/29/19 21:59 04/28/19 21:12 65 MLS/HR Sodium Acetate 90 meq/Sodium Phosphate 10 mmol/ Potassium Chloride 50 meq/ Potassium Phosphate 15 mmol/ Magnesium Sulfate 10 meq/Calcium Gluconate 10 meq/ Multivitamins 10 ml/Chromium/ Copper/Manganese/ Seleni/Zn 1 ml/ Insulin Human Regular 20 unit/ Total Parenteral Nutrition/Amino Acids/Dextro... 1,512 ml @ 63 mls/hr TPN CONT 04/26/19 22:00 04/27/19 21:59 DC 04/26/19 22:12 63 MLS/HR Sodium Bicarbonate (Sodium Bicarb Adult 8.4% Syr) 50 meq 1X ONCE 04/27/19 10:15 04/27/19 10:16 DC 04/27/19 10:16 50 MEQ Sodium Chloride 1,000 ml @ 1,000 mls/hr 1X ONCE 04/26/19 11:00 04/26/19 11:59 DC 04/26/19 11:13 1,000 MLS/HR Sodium Chloride 90 meq/Potassium Chloride 50 meq/ Potassium Phosphate 15 mmol/ Magnesium Sulfate 10 meq/Calcium Gluconate 10 meq/ Multivitamins 10 ml/Chromium/ Copper/Manganese/ Seleni/Zn 1 ml/ Insulin Human Regular 10 unit/ Total Parenteral Nutrition/Amino Acids/Dextrose/ Fat Emulsion Intravenous 1,512 ml @ 63 mls/hr TPN CONT 04/25/19 22:00 04/26/19 21:59 DC 04/25/19 23:10 63 MLS/HR Sodium Phosphate 30 mmol/Dextrose 260 ml @ 65 mls/hr 1X ONCE 04/26/19 15:00 04/26/19 18:59 DC 04/26/19 15:11 65 MLS/HR Succinylcholine Chloride (Anectine) 80 mg 1X ONCE 04/20/19 17:30 04/20/19 17:31 DC 04/20/19 17:36 80 MG Vancomycin HCl (Vanco Per Pharmacy) 1 each PRN DAILY PRN 04/19/19 19:15 04/21/19 09:40 DC 04/20/19 14:29 1 EACH Vancomycin HCl (Vancomycin Trough Level) 1 each 1X ONCE 04/21/19 07:30 04/21/19 07:31 DC 04/21/19 10:49 1 EACH Vancomycin HCl 1.5 gm/Sodium Chloride 500 ml @ 250 mls/hr Q12H 04/20/19 08:00 04/21/19 09:40 DC 04/20/19 20:04 250 MLS/HR Vancomycin HCl 2 gm/Sodium Chloride 500 ml @ 250 mls/hr 1X ONCE 04/19/19 19:15 04/19/19 21:14 DC 04/19/19 20:01 250 MLS/HR Vasopressin 40 unit/Dextrose 102 ml @ 6 mls/hr CONT PRN 04/21/19 04:00 04/24/19 15:38 6 MLS/HR Labs: Lab Laboratory Tests Test 04/28/19 12:13 04/28/19 16:29 04/28/19 20:18 04/29/19 00:51 Glucose (Fingerstick) 231 mg/dL (70-99) 219 mg/dL (70-99) 192 mg/dL (70-99) 173 mg/dL (70-99) Test 04/29/19 03:59 04/29/19 05:30 Glucose (Fingerstick) 152 mg/dL (70-99) White Blood Count 24.5 x10^3/uL (4.0-11.0) Red Blood Count 4.28 x10^6/uL (3.50-5.40) Hemoglobin 9.7 g/dL (12.0-15.5) Hematocrit 31.6 % (36.0-47.0) Mean Corpuscular Volume 74 fL (79-100) Mean Corpuscular Hemoglobin 23 pg (25-35) Mean Corpuscular Hemoglobin Concent 31 g/dL (31-37) Red Cell Distribution Width 18.4 % (11.5-14.5) Platelet Count 88 x10^3/uL (140-400) Neutrophils (%) (Auto) 89 % (31-73) Lymphocytes (%) (Auto) 6 % (24-48) Monocytes (%) (Auto) 5 % (0-9) Eosinophils (%) (Auto) 1 % (0-3) Basophils (%) (Auto) 1 % (0-3) Neutrophils # (Auto) 21.7 x10^3/uL (1.8-7.7) Lymphocytes # (Auto) 1.3 x10^3/uL (1.0-4.8) Monocytes # (Auto) 1.1 x10^3/uL (0.0-1.1) Eosinophils # (Auto) 0.1 x10^3/uL (0.0-0.7) Basophils # (Auto) 0.1 x10^3/uL (0.0-0.2) Sodium Level 147 mmol/L (136-145) Potassium Level 4.9 mmol/L (3.5-5.1) Chloride Level 114 mmol/L (98-107) Carbon Dioxide Level 23 mmol/L (21-32) Anion Gap 10 (6-14) Blood Urea Nitrogen 76 mg/dL (7-20) Creatinine 1.1 mg/dL (0.6-1.0) Estimated GFR (Cockcroft-Gault) 50.0 Glucose Level 127 mg/dL (70-99) Calcium Level 8.3 mg/dL (8.5-10.1) Phosphorus Level 3.3 mg/dL (2.6-4.7) Magnesium Level 2.1 mg/dL (1.8-2.4) Micro RUN DATE: 04/23/19 PAGE 1 RUN TIME: 8837 [facility] [address] [place] [address] Jae Wright M.D., [employer] PATIENT: XENA LEE ACCT: [id number] LOC: 1 [facility] ICU U: [id number] AGE/SX: 63/F ROOM: 115 RE04/19/[address]: ASHLY SIEGEL MD : 1955 BED: 1 DIS: STATUS: ADM IN TLOC: SPEC #: [id number] WEST: 04/19/19 STATUS: COMP REQ #: [id number] RECD: 04/19/[address]: BENJIE DE LOS SANTOS MD SOURCE: BLOOD ENTR: 04/20/19-[address] [facility] [address]: NO [facility]: ORDERED: BLD CULT - LC Procedure Result BLOOD CULTURE LC Final Preliminary report Final report BLD CULT RESULT 1 Final Comment Staphylococcus species Performed at: - [facility], [place], [place] [id number] Publicity Writer: BHARGAVI Smart MD, Phone: [phone] Staphylococcus epidermidis Based on susceptibility to oxacillin this isolate would be susceptible to: *Penicillinase-stable penicillins, such as: Cloxacillin, Dicloxacillin, Nafcillin *Beta-lactam combination agents, such as: Amoxicillin-clavulanic acid, Ampicillin-sulbactam, Piperacillin-tazobactam *Oral cephems, such as: Cefaclor, Cefdinir, Cefpodoxime, Cefprozil, Cefuroxime, Cephalexin, Loracarbef *Parenteral cephems, such as: Cefazolin, Cefepime, Cefotaxime, Cefotetan, Ceftaroline, Ceftizoxime, Ceftriaxone, Cefuroxime *Carbapenems, such as: Doripenem, Ertapenem, Imipenem, Meropenem ANTIMICROBIAL SUSCEPTIBILITY Final Comment S = Susceptible; I = Intermediate; R = Resistant P = Positive; N = Negative MICS are expressed in micrograms per mL Antibiotic RSLT#1 RSLT#2 RSLT#3 RSLT#4 Ciprofloxacin S<=0.5 Clindamycin S<=0.25 Erythromycin R>=8 Gentamicin S<=0.5 CONTINUED ON NEXT PAGE RUN DATE: 04/23/19 PAGE 2 RUN TIME: 1510 [facility] [address] [place] [address] Jae Wright M.D., [employer] SPEC: [id number] PATIENT: XENA LEE [id number] (Continued) Procedure Result ANTIMICROBIAL SUSCEPTIBILITY Final (continued) Levofloxacin S<=0.12 Linezolid S =1 Nitrofurantoin S<=16 Oxacillin S<=0.25 Penicillin R>=0.5 Quinupristin/Dalfopristin S<=0.25 Rifampin S<=0.5 Tetracycline S<=1 Trimethoprim/Sulfa S<=10 Vancomycin S =1 Performed at: - [facility] [address] [facility] [address], [place], [place] [id number] Publicity Writer: BHARGAVI Smart MD, Phone: [phone] -- Objective: Assessment: Condition critical Fevers despite broad spectrum antibiotics Repeat Cultures negative so far MSSA Bacteremia 04/19 08/17 BOTTLES on pressors Rt IJ and Lt EJ removed PICC line 04/28 Leukocytosis Acute resp failure multifactorial, Pneumonia ,likely aspiration Lactic acidosis. Urinary tract infection versus hematuria. UC no growth Encephalopathy Sacral decubitus. venous stasis with weeping lesions ble Status post fall. Abdominal pain. Large adenexal mass,lymphadenopathy, likely malignancy, pt is not a surgical candidate Transaminitis,Chronic liver disease Dilated gallbladder with gallbladder sludge and wall thickening, Small upper abdominal ascites. Splenomegaly. Anemia ,Thrombocytopenia improving mycotic toe nails Umbilical hernia w/ SBO, Plan: Plan of Care Cont to remain febrile on broad spectrum antibiotics, could be from underlying necrotic pelvic mass,not a surgical candidate Repeat bc and uc are negative so far cont merrem 04/26 off Zosyn due to thrombocytopenia 04/25 cont daptomycin and micafungin cont zyvox ct chest and head F/u BC 04/21 onwards ; neg so far RT Central line and Lt EJ has been removed Critically ill Prognosis grim Palliative on case, d/w Nursing staff CARLITOS VILLASEÑOR MD Apr 29, 2019 08:26
[2019-04-29] MEDS: AMMONIUM LACTATE 12% TOPICAL LOTION 226GM BOTTLE. TP SCH ×2 (08:31→21:02)
[2019-04-29 08:32] LABS: BASE EXCESS ABG -3 mmol/L (-3-3); HCO3 ABG 21 mmol/L (21-28); PCO2 ABG 33 mmHg (35-46); PO2 ABG 73 mmHg (65-108); SAT O2 ABG 94 % (92-99)
[2019-04-29 08:34] LABS: FIO2 ABG 35
--- NOTE | 2019-04-29 09:54 | RAD ---
Examination: CT HEAD WO CONTRAST History: Fever Comparison/Correlation: 04/19/2019 CT head without contrast Findings: Axial images of the head were obtained without contrast. Atrophy is present. No intracranial hemorrhage, midline shift, or mass effect. Globes and optic nerves are unremarkable. Opacification of the ethmoid air cells noted greater on the left. Bony structures are intact. Impression: No suspicious process. PQRS Compliance Statement: One or more of the following individualized dose reduction techniques were utilized for this examination: 1. Automated exposure control 2. Adjustment of the mA and/or kV according to patient size 3. Use of iterative reconstruction technique Electronically signed by: Hussain De León MD (04/29/2019 9:51 AM) [facility]
--- NOTE | 2019-04-29 10:40 | RAD ---
Examination: CT CHEST WO CONTRAST History: Fever Comparison/Correlation: 04/26/2019 CT abdomen and pelvis without contrast, 04/25/2019 portable chest x-ray exam Findings: Axial images of chest were obtained without contrast. Sagittal and coronal reformatted images were provided. Endotracheal tube terminates at the juan. Nasogastric tube terminates within the stomach. Small bilateral pleural effusions are present. Left lower lobe atelectasis is identified. Atelectasis adjacent to the right major fissure at the apical level is present. No pneumothorax. Nonenlarged thoracic lymph nodes are present and presumably reactive. Incidental note is made of a large left adrenal gland low-attenuation mass measuring up to 3.5 cm diameter. It is well-circumscribed on the basis of CT imaging. It measures 4.5 cm anteroposterior by 3.8 cm transverse by at least 5.9 cm longitudinal. Displacement of the trachea to the right of midline is evident. Large quantity of ascites involving the upper abdomen noted. Anasarca is evident. Well-demarcated lytic involving the C7 vertebral body is present measuring up to 1.1 cm diameter with involvement of the superior endplate. Impression: Endotracheal tube at the juan. Retraction by approximately 3 cm is recommended. Bilateral pleural effusions and bibasilar atelectatic consolidations. This is greater in size on the left. No sylvian change upon correlation with CT abdomen and pelvis of 04/26/2019. Large amount of ascites. Anasarca. Large left thyroid gland low-attenuation mass. Correlate with prior exams assess stability. Consider ultrasound exam. Lytic lesion of C7. While this may represent a large Schmorl's node, more significant etiology is not excluded. Correlate with prior exams if available to assess stability. Consider further evaluation with MRI without and with contrast if able. Alternatively, CT of the cervical spine may be considered. PQRS Compliance Statement: One or more of the following individualized dose reduction techniques were utilized for this examination: 1. Automated exposure control 2. Adjustment of the mA and/or kV according to patient size 3. Use of iterative reconstruction technique Electronically signed by: Hussain De León MD (04/29/2019 10:37 AM) [facility]
[2019-04-29] MEDS: NORMAL SALINE IV SCH (11:23)
[2019-04-29] MEDS: DAPTOMYCIN IV SCH (11:23)
--- NOTE | 2019-04-29 11:23 | PDOC ---
PULMONARY PROGRESS NOTES Subjective on vent, on peep 5, fio2 40%, sedated ,off levo, v recurrent fever, lactic acidosis Vitals Vital Signs Date Time Temp Pulse Resp B/P (MAP) Pulse Ox O2 Delivery O2 Flow Rate FiO2 04/29/19 10:00 88 22 114/91 (99) 97 Ventilator 04/29/19 08:00 98.9 98.9 Comments ros as mentioned as above discussed w rn other sys otherwise neg on vent sedated Lungs: Other (deminished) Cardiovascular: S1, S2 Abdomen: Other (distended obese deminished bs) Extremities: Other (lymphedema) Skin: Warm Labs Laboratory Tests Test 04/27/19 11:34 04/27/19 16:13 04/27/19 21:04 04/28/19 00:30 Glucose (Fingerstick) 372 mg/dL (70-99) 348 mg/dL (70-99) 355 mg/dL (70-99) 339 mg/dL (70-99) Test 04/28/19 04:44 04/28/19 05:30 04/28/19 07:30 04/28/19 07:53 Glucose (Fingerstick) 230 mg/dL (70-99) 228 mg/dL (70-99) White Blood Count 17.4 x10^3/uL (4.0-11.0) Red Blood Count 4.36 x10^6/uL (3.50-5.40) Hemoglobin 9.9 g/dL (12.0-15.5) Hematocrit 31.6 % (36.0-47.0) Mean Corpuscular Volume 73 fL (79-100) Mean Corpuscular Hemoglobin 23 pg (25-35) Mean Corpuscular Hemoglobin Concent 31 g/dL (31-37) Red Cell Distribution Width 18.7 % (11.5-14.5) Platelet Count 74 x10^3/uL (140-400) Neutrophils (%) (Auto) 85 % (31-73) Lymphocytes (%) (Auto) 8 % (24-48) Monocytes (%) (Auto) 6 % (0-9) Eosinophils (%) (Auto) 1 % (0-3) Basophils (%) (Auto) 0 % (0-3) Neutrophils # (Auto) 14.8 x10^3/uL (1.8-7.7) Lymphocytes # (Auto) 1.5 x10^3/uL (1.0-4.8) Monocytes # (Auto) 1.0 x10^3/uL (0.0-1.1) Eosinophils # (Auto) 0.1 x10^3/uL (0.0-0.7) Basophils # (Auto) 0.1 x10^3/uL (0.0-0.2) Sodium Level 147 mmol/L (136-145) Potassium Level 4.7 mmol/L (3.5-5.1) Chloride Level 114 mmol/L (98-107) Carbon Dioxide Level 22 mmol/L (21-32) Anion Gap 11 (6-14) Blood Urea Nitrogen 73 mg/dL (7-20) Creatinine 1.0 mg/dL (0.6-1.0) Estimated GFR (Cockcroft-Gault) 55.8 Glucose Level 249 mg/dL (70-99) Calcium Level 8.8 mg/dL (8.5-10.1) Phosphorus Level 2.9 mg/dL (2.6-4.7) Magnesium Level 2.2 mg/dL (1.8-2.4) Triglycerides Level 221 mg/dL (0-150) O2 Saturation 97 % (92-99) Arterial Blood pH 7.40 (7.35-7.45) Arterial Blood pCO2 at Patient Temp 28 mmHg (35-46) Arterial Blood pO2 at Patient Temp 98 mmHg (65-108) Arterial Blood HCO3 17 mmol/L (21-28) Arterial Blood Base Excess -7 mmol/L (-3-3) FiO2 35% Test 04/28/19 12:13 04/28/19 16:29 04/28/19 20:18 04/29/19 00:51 Glucose (Fingerstick) 231 mg/dL (70-99) 219 mg/dL (70-99) 192 mg/dL (70-99) 173 mg/dL (70-99) Test 04/29/19 03:59 04/29/19 05:30 04/29/19 08:30 Glucose (Fingerstick) 152 mg/dL (70-99) 148 mg/dL (70-99) White Blood Count 24.5 x10^3/uL (4.0-11.0) Red Blood Count 4.28 x10^6/uL (3.50-5.40) Hemoglobin 9.7 g/dL (12.0-15.5) Hematocrit 31.6 % (36.0-47.0) Mean Corpuscular Volume 74 fL (79-100) Mean Corpuscular Hemoglobin 23 pg (25-35) Mean Corpuscular Hemoglobin Concent 31 g/dL (31-37) Red Cell Distribution Width 18.4 % (11.5-14.5) Platelet Count 88 x10^3/uL (140-400) Neutrophils (%) (Auto) 89 % (31-73) Lymphocytes (%) (Auto) 6 % (24-48) Monocytes (%) (Auto) 5 % (0-9) Eosinophils (%) (Auto) 1 % (0-3) Basophils (%) (Auto) 1 % (0-3) Neutrophils # (Auto) 21.7 x10^3/uL (1.8-7.7) Lymphocytes # (Auto) 1.3 x10^3/uL (1.0-4.8) Monocytes # (Auto) 1.1 x10^3/uL (0.0-1.1) Eosinophils # (Auto) 0.1 x10^3/uL (0.0-0.7) Basophils # (Auto) 0.1 x10^3/uL (0.0-0.2) Sodium Level 147 mmol/L (136-145) Potassium Level 4.9 mmol/L (3.5-5.1) Chloride Level 114 mmol/L (98-107) Carbon Dioxide Level 23 mmol/L (21-32) Anion Gap 10 (6-14) Blood Urea Nitrogen 76 mg/dL (7-20) Creatinine 1.1 mg/dL (0.6-1.0) Estimated GFR (Cockcroft-Gault) 50.0 Glucose Level 127 mg/dL (70-99) Calcium Level 8.3 mg/dL (8.5-10.1) Phosphorus Level 3.3 mg/dL (2.6-4.7) Magnesium Level 2.1 mg/dL (1.8-2.4) O2 Saturation 94 % (92-99) Arterial Blood pH 7.42 (7.35-7.45) Arterial Blood pCO2 at Patient Temp 33 mmHg (35-46) Arterial Blood pO2 at Patient Temp 73 mmHg (65-108) Arterial Blood HCO3 21 mmol/L (21-28) Arterial Blood Base Excess -3 mmol/L (-3-3) FiO2 35 Laboratory Tests Test 04/28/19 12:13 04/28/19 16:29 04/28/19 20:18 04/29/19 00:51 Glucose (Fingerstick) 231 mg/dL (70-99) 219 mg/dL (70-99) 192 mg/dL (70-99) 173 mg/dL (70-99) Test 04/29/19 03:59 04/29/19 05:30 04/29/19 08:30 Glucose (Fingerstick) 152 mg/dL (70-99) 148 mg/dL (70-99) White Blood Count 24.5 x10^3/uL (4.0-11.0) Red Blood Count 4.28 x10^6/uL (3.50-5.40) Hemoglobin 9.7 g/dL (12.0-15.5) Hematocrit 31.6 % (36.0-47.0) Mean Corpuscular Volume 74 fL (79-100) Mean Corpuscular Hemoglobin 23 pg (25-35) Mean Corpuscular Hemoglobin Concent 31 g/dL (31-37) Red Cell Distribution Width 18.4 % (11.5-14.5) Platelet Count 88 x10^3/uL (140-400) Neutrophils (%) (Auto) 89 % (31-73) Lymphocytes (%) (Auto) 6 % (24-48) Monocytes (%) (Auto) 5 % (0-9) Eosinophils (%) (Auto) 1 % (0-3) Basophils (%) (Auto) 1 % (0-3) Neutrophils # (Auto) 21.7 x10^3/uL (1.8-7.7) Lymphocytes # (Auto) 1.3 x10^3/uL (1.0-4.8) Monocytes # (Auto) 1.1 x10^3/uL (0.0-1.1) Eosinophils # (Auto) 0.1 x10^3/uL (0.0-0.7) Basophils # (Auto) 0.1 x10^3/uL (0.0-0.2) Sodium Level 147 mmol/L (136-145) Potassium Level 4.9 mmol/L (3.5-5.1) Chloride Level 114 mmol/L (98-107) Carbon Dioxide Level 23 mmol/L (21-32) Anion Gap 10 (6-14) Blood Urea Nitrogen 76 mg/dL (7-20) Creatinine 1.1 mg/dL (0.6-1.0) Estimated GFR (Cockcroft-Gault) 50.0 Glucose Level 127 mg/dL (70-99) Calcium Level 8.3 mg/dL (8.5-10.1) Phosphorus Level 3.3 mg/dL (2.6-4.7) Magnesium Level 2.1 mg/dL (1.8-2.4) O2 Saturation 94 % (92-99) Arterial Blood pH 7.42 (7.35-7.45) Arterial Blood pCO2 at Patient Temp 33 mmHg (35-46) Arterial Blood pO2 at Patient Temp 73 mmHg (65-108) Arterial Blood HCO3 21 mmol/L (21-28) Arterial Blood Base Excess -3 mmol/L (-3-3) FiO2 35 Medications Active Scripts Medications Dose Route/Sig Max Daily Dose Days Date Category No Known Medications Prior To Admisstion (Info) Each 1 Each 1X 04/20/[address] abdomen Limited exam due to lack of IV contrast. 1. Bilateral lung bases consolidations, left more than right may be secondary to atelectasis or pneumonia. 2. Cirrhosis with evidence of portal venous hypertension. Stable small volume ascites. 3. Umbilical hernia containing focal loop of small bowel with resolution of previously seen dilated bowel loops. No imaging evidence of high-grade bowel obstruction. 4. Enlarged retroperitoneal and inguinal lymph nodes concerning for lymphoma or metastasis. 5. Omental nodularity suggests a metastasis or pneumatosis. 6. Left adnexal masslike lesion may be of ovarian origin or pedunculated fibroid. Nonemergent MRI of the pelvis with IV contrast recommended. Electronically signed by: Miguel Hampton DO (04/26/2019 1:19 PM) [facility] Impression . IMPRESSION: 1. Acute hypercapnic respiratory failure secondary to multifactorial etiologies and likely underlying hypovolemic and septic shock., now with recurrent fever, lactic acidosis 2. bilateral infiltrates, likely related to aspiration pneumonia. 3. Acute kidney injury secondary to hypotension and shock. 4. Small bowel obstruction. She has been seen by Surgery and not a surgical candidate. Over 2 liters of fluid came out from her orogastric tube upon insertion. 5. Chronic lymphedema of the lower extremities. 6. Leukocytosis. 7. Moderate protein-calorie malnutrition. 8. fever, 9. bacteremia, gram +cocci, recent MSSA bacteremia 10. Abnormal ct abdomen with suspected lymphoma vs malignancy Plan . 1. Continue vent support, setting reviewed, back on sedation.not stable for sbt. 2. Broad-spectrum antibiotic per Infectious Disease recommendations. 3. Follow all cultures. 4. Renal consultation / rec. 5. Follow Surgery recommendations. 6. Follow GI recommendations. 7. DVT and stress ulcer prophylaxis. 8. Prognosis appears to be grim. I had a long discussion with 04/27. explained multiple organ involvement and abnormal ct abd findings. He understands and agrees for comfort care.plan for withdrawl of care Wednesday TYE MADRIGAL MD Apr 29, 2019 11:23
--- NOTE | 2019-04-29 11:35 | PDOC ---
[employer] PROGRESS NOTE Chief Complaint Chief Complaint Acute hypercapnic respiratory failure/ARDS Likely aspiration pneumonia Bilateral lung infiltrates RADHA SBO Chronic lymphedema of lower extremities Leukocytosis Protein/Calorie Malnutrition Bacteremia History of Present Illness History of Present Illness 04/29/19 Pt seen/examined in the ICU Pt still currently on vent (Vent settings: AC/20/500/35% 5PEEP) Pt is sating at 97% Still on TPN and sedated 9�13�2019 Patient seen and examined She is still on the vent appears very ill critically ill Discussed with RN Vent settings AC/20/500/35% 5 PEEP On TPN Sedated 04/27/19 Pt seen/examined in the ICU and currently on vent (vent settings: AC/20/500/35% 5PEEP) Dawn to BSD Pt still has ET tube, OG tube to LIS Sedated with fentanyl INVENTORY CLERK and precedex Glucose currently at 376 DW RN Sating at 100% 04/26/19 Pt seen and examined in ICU on vent (vent settings: AC/20/500/35% 5PEEP) pH 7.4 Dawn to BSD in place Pt still has ET tube; OG tube to LIS Sedated with fentanyl INVENTORY CLERK and precedex DW RN RN taking pt for CT of abdomen Had fever overnight; given NS 1000 cc bolus Glucose taken by RN; Current glucose: 369 Currently sat-ing at 99% Chart reviewed 04/25/19 Pt seen and examined in ICU on vent (vent settings: AC/20/500/40% Peep16) Pt has ET tube and OG tube to LIS Pt has dawn to BSD Sedated with precedex and fentanyl INVENTORY CLERK DW RN DW supportive employment case manager chart reviewed Vitals/I&O Vitals/I&O: Vital Signs Date Time Temp Pulse Resp B/P (MAP) Pulse Ox O2 Delivery O2 Flow Rate FiO2 04/29/19 11:29 99 Ventilator 04/29/19 11:23 79 101/64 04/29/19 10:00 22 04/29/19 08:00 98.9 98.9 I & O 04/28/19 04/28/19 04/29/19 14:59 22:59 06:59 Intake Total 400 ml 2437 ml 1471.23 ml Output Total 130 ml 150 ml 400 ml Balance 270 ml 2287 ml 1071.23 ml Physical Exam Physical Exam: GENERAL: Orally intubated, sedated, mitts HEENT: Pupils equal, small. ETT/ OGT with green colored output NECK: Supple. Left EJ ,out LUNGS: dec bs at bases HEART: S1, S2 ,no murmurs ABDOMEN: Soft, Umbilical hernia present. Large pannus present. EXTREMITIES: Both lower extremities have venous insufficiency, stasis dermatitis on both the legs posteriorly. Trace edema SKIN: Warm to touch. sacral wound NEUROLOGIC: Sedated on vent RT IJ out PICC line (04/28) General: No acute distress Heart: Regular rate, Other (distant heart tones ) Lungs: Other (deminished) Abdomen: Soft, Other (hernia, non reducible) Extremities: Other (extensive lymphedema) Skin: No rashes, No significant lesion Labs Labs: Laboratory Tests Test 04/28/19 12:13 04/28/19 16:29 04/28/19 20:18 04/29/19 00:51 Glucose (Fingerstick) 231 mg/dL (70-99) 219 mg/dL (70-99) 192 mg/dL (70-99) 173 mg/dL (70-99) Test 04/29/19 03:59 04/29/19 05:30 04/29/19 08:30 04/29/19 11:26 Glucose (Fingerstick) 152 mg/dL (70-99) 148 mg/dL (70-99) 186 mg/dL (70-99) White Blood Count 24.5 x10^3/uL (4.0-11.0) Red Blood Count 4.28 x10^6/uL (3.50-5.40) Hemoglobin 9.7 g/dL (12.0-15.5) Hematocrit 31.6 % (36.0-47.0) Mean Corpuscular Volume 74 fL (79-100) Mean Corpuscular Hemoglobin 23 pg (25-35) Mean Corpuscular Hemoglobin Concent 31 g/dL (31-37) Red Cell Distribution Width 18.4 % (11.5-14.5) Platelet Count 88 x10^3/uL (140-400) Neutrophils (%) (Auto) 89 % (31-73) Lymphocytes (%) (Auto) 6 % (24-48) Monocytes (%) (Auto) 5 % (0-9) Eosinophils (%) (Auto) 1 % (0-3) Basophils (%) (Auto) 1 % (0-3) Neutrophils # (Auto) 21.7 x10^3/uL (1.8-7.7) Lymphocytes # (Auto) 1.3 x10^3/uL (1.0-4.8) Monocytes # (Auto) 1.1 x10^3/uL (0.0-1.1) Eosinophils # (Auto) 0.1 x10^3/uL (0.0-0.7) Basophils # (Auto) 0.1 x10^3/uL (0.0-0.2) Sodium Level 147 mmol/L (136-145) Potassium Level 4.9 mmol/L (3.5-5.1) Chloride Level 114 mmol/L (98-107) Carbon Dioxide Level 23 mmol/L (21-32) Anion Gap 10 (6-14) Blood Urea Nitrogen 76 mg/dL (7-20) Creatinine 1.1 mg/dL (0.6-1.0) Estimated GFR (Cockcroft-Gault) 50.0 Glucose Level 127 mg/dL (70-99) Calcium Level 8.3 mg/dL (8.5-10.1) Phosphorus Level 3.3 mg/dL (2.6-4.7) Magnesium Level 2.1 mg/dL (1.8-2.4) O2 Saturation 94 % (92-99) Arterial Blood pH 7.42 (7.35-7.45) Arterial Blood pCO2 at Patient Temp 33 mmHg (35-46) Arterial Blood pO2 at Patient Temp 73 mmHg (65-108) Arterial Blood HCO3 21 mmol/L (21-28) Arterial Blood Base Excess -3 mmol/L (-3-3) FiO2 35 Review of Systems Review of Systems: co weakness co SOB Assessment and Plan Assessmemt and Plan Problems Medical Problems: (1) Diabetes Status: Acute (2) Fall Status: Acute (3) Severe sepsis Status: Acute (4) UTI (urinary tract infection) Status: Acute (5) Weakness Status: Acute Acute hypercapnic respiratory failure/ARDS Likely aspiration pneumonia Bilateral lung infiltrates RADHA SBO Diabetes Mellitus Chronic lymphedema of lower extremities Leukocytosis Protein/Calorie Malnutrition Bacteremia Plan ICU monitoring Vent weaning Continue sedation with precedex and fentanyl INVENTORY CLERK Dawn to BSD Maintain OG to LIS sliding scale insulin Q4 20 Lantus Sub q24 hrs Accucheck Q4hr Prognosis guarded Trend labs DVT prophylaxis PICC line TPN Full code Appreciate subspecialty input Total time 32 minutes Comment Review of Relevant I have reviewed the following items ashok (where applicable) has been applied. Medications: Current Medications Medications (Trade) Dose Ordered Sig/[place] Route PRN Reason Start Time Stop Time Status Last Admin Dose Admin Sodium Acetate 70 meq/Sodium Phosphate 10 mmol/ Potassium Phosphate 18 mmol/ Magnesium Sulfate 10 meq/ Multivitamins 10 ml/Chromium/ Copper/Manganese/ Seleni/Zn 1 ml/ Insulin Human Regular 20 unit/ Potassium Acetate 30 meq/Total Parenteral Nutrition/Amino Acids/Dextrose/ Fat Emuls... 1,560 ml @ 65 mls/hr TPN CONT IV 04/28/19 22:00 04/29/19 21:59 04/28/19 21:12 CHRIS PHILLIPS III DO Apr 29, 2019 11:35
[2019-04-29] MEDS: TPN PER PHARMACY MC PRN (13:38)
--- NOTE | 2019-04-29 13:38 | NUR ---
Pharmacy TPN Dosing Note S: XENA LEE is a 63 year old F Currently receiving Central Continuous TPN started 04/25/19 B:Pertinent PMH: SBO Height: 5 feet, 3 inches Weight: 137.6 kg Current diet: NPO LABS: Sodium: 147 Potassium: 4.9 Chloride: 114 Calcium: 8.3 Corrected Calcium: 9.58 Magnesium: 2.1 CO2: 23 SCr: 1.1 Glucose: 127, 148, 183 Albumin: 2.4 AST: 44 ALT: 28 TPN FORMULA: TPN TYPE: Central Continuous AMINO ACIDS: 115 gm DEXTROSE: 250 gm LIPIDS: 30 gm SODIUM ACETATE: 30 mEq SODIUM PHOSPHATE: 10 mmol POTASSIUM PHOSPHATE: 18 mmol MAGNESIUM: 10 mEq INSULIN: 20 units MULTIPLE VITAMIN: 10 ml TRACE ELEMENTS: 1 ml(s) TPN PLAN: -Remove KAC from TPN due to serum potassium trending to high end of normal. Continue with KPhos 18 mmol/day. -Serum sodium elevated, reduce NaAC to 30 mEq/day. -BMP tomorrow per primary. R: Continue TPN @ current rate and with above formula. Will monitor electrolytes, glucose, and tolerance to TPN. ANTOINE CRAMER, [facility], 04/29/19 [id number]
[2019-04-29] MEDS: INSULIN GLARGINE SYRINGE. SQ SCH (20:31)
[2019-04-29] MEDS ORDERED: [UNRECOGNIZED DRUG - OTHER] IV SCH ×10 (22:00)
[2019-04-29] MEDS ORDERED: TOTAL PARENTERAL NUTRITION IV SCH ×10 (22:00)
[2019-04-29] MEDS ORDERED: AMINO ACID IV SCH ×10 (22:00)
[2019-04-29] MEDS ORDERED: DEXTROSE 70% IV SCH ×10 (22:00)
[2019-04-30] VITALS (25 sets, daily range): BP systolic 80–144; BP diastolic 54–82
[2019-04-30] MEDS: INSULIN LISPRO 300 UNITS/3 ML VIAL. SQ SCH ×6 (00:01→20:16)
[2019-04-30] MEDS: MIDAZOLAM 100mg/100ml NS BAG 100 ML IV PRN (05:32)
[2019-04-30] MEDS: MEROPENEM 500 MG in IV NORMAL SALINE 50ML 50 ML IV SCH ×3 (05:32→18:09)
[2019-04-30] MEDS: METOPROLOL TARTRATE 5 MG/5 ML VIAL. IVP SCH ×3 (06:00→18:00)
[2019-04-30 07:32] LABS: BASO # 0.1 x10^3/uL (0.0-0.2); BASO % 0 % (0-3); EOS # 0.1 x10^3/uL (0.0-0.7); EOS % 0 % (0-3); HEMATOCRIT 32.6 % (36.0-47.0); HEMOGLOBIN 9.9 g/dL (12.0-15.5); LYMPH % 4 % (24-48); MEAN CORPUSCULAR HEMOGLOBIN 23 pg (25-35); MEAN CORPUSCULAR HGB CONC 30 g/dL (31-37); MEAN CORPUSCULAR VOLUME 74 fL (79-100); MONO # 0.9 x10^3/uL (0.0-1.1); MONO % 4 % (0-9); NEUT # 23.2 x10^3/uL (1.8-7.7); NEUT % 92 % (31-73); PLATELET COUNT 99 x10^3/uL (140-400); RED BLOOD COUNT 4.39 x10^6/uL (3.50-5.40); RED CELL DISTRIBUTION WIDTH 18.8 % (11.5-14.5); WHITE BLOOD COUNT 25.2 x10^3/uL (4.0-11.0)
[2019-04-30] MEDS: DEXMEDETOMIDINE 400 MCG in IV NORMAL SALINE 100ML 96 ML IV PRN ×4 (07:48→22:11)
[2019-04-30 07:52] LABS: CALCIUM 8.5 mg/dL (8.5-10.1); CREATININE 1.1 mg/dL (0.6-1.0); POTASSIUM 4.7 mmol/L (3.5-5.1)
[2019-04-30 08:11] LABS: BASE EXCESS ABG -5 mmol/L (-3-3); HCO3 ABG 19 mmol/L (21-28); PCO2 ABG 30 mmHg (35-46); PO2 ABG 71 mmHg (65-108); SAT O2 ABG 94 % (92-99)
[2019-04-30] MEDS: PANTOPRAZOLE IV PUSH 40 MG VIAL. IVP SCH (08:32)
[2019-04-30] MEDS: AMMONIUM LACTATE 12% TOPICAL LOTION 226GM BOTTLE. TP SCH ×2 (08:33→20:53)
[2019-04-30] MEDS: MICAFUNGIN 100 MG in IV DEXTROSE 5% 100ML 100 ML IV SCH (08:33)
[2019-04-30 08:47] LABS: FIO2 ABG 35
--- NOTE | 2019-04-30 08:57 | PDOC ---
Infectious Disease Note Subjective: Subjective Remains orally intubated/vent no fevers last 24 hrs d/w rn condition remains unchanged no bm for a couple of days ROS: ROS unable to obtain Vital Signs: Vital Signs Vital Signs Date Time Temp Pulse Resp B/P (MAP) Pulse Ox O2 Delivery O2 Flow Rate FiO2 04/30/19 08:18 100 Ventilator 04/30/19 08:00 98.8 88 22 105/72 (83) 98.8 04/29/19 12:07 98.0 Physical Exam: PHYSICAL EXAM GENERAL: Orally intubated, sedated, mitts HEENT: Pupils equal, small. ETT/ OGT with green colored output NECK: Supple LUNGS: dec bs at bases HEART: S1, S2 ,no murmurs ABDOMEN: Soft, Umbilical hernia present. Large pannus present. EXTREMITIES: Both lower extremities have venous insufficiency, stasis dermatitis on both the legs posteriorly. Trace edema SKIN: Warm to touch. sacral wound NEUROLOGIC: Sedated on vent PICC line (04/28) Medications: Inpatient Meds: Current Medications Medications (Trade) Dose Ordered Sig/[place] Start Time Stop Time Status Last Admin Dose Admin Acetaminophen (Tylenol Supp) 650 mg PRN Q6HRS PRN 04/21/19 16:45 04/28/19 20:04 650 MG Acetaminophen (Tylenol) 650 mg PRN Q6HRS PRN 04/22/19 00:15 Cancel Albumin Human 100 ml @ 100 mls/hr TID 04/22/19 14:00 04/24/19 09:59 DC 04/24/19 08:10 100 MLS/HR Amino Acids/ Glycerin/ Electrolytes 1,000 ml @ 80 mls/hr [id number] 04/23/19 14:00 04/25/19 21:59 DC 04/25/19 17:31 80 MLS/HR Atropine Sulfate (ATROPINE 0.5mg SYRINGE) 0.5 mg PRN Q5MIN PRN 04/20/19 23:30 Ceftriaxone Sodium (Rocephin) 1 gm 1X ONCE 04/19/19 18:45 04/19/19 18:46 DC 04/19/19 19:17 1 GM Daptomycin 720 mg/ Sodium Chloride 50 ml @ 100 mls/hr ONCE ONCE 04/22/19 16:00 04/22/19 16:29 DC 04/22/19 15:06 100 MLS/HR Daptomycin 760 mg/ Sodium Chloride 50 ml @ 100 mls/hr ONCE ONCE 04/23/19 13:00 04/23/19 13:29 DC 04/23/19 13:02 100 MLS/HR Daptomycin 780 mg/ Sodium Chloride 50 ml @ 100 mls/hr Q24H 04/26/19 10:00 04/29/19 11:23 100 MLS/HR Dexmedetomidine HCl 400 mcg/ Sodium Chloride 100 ml @ 0 mls/hr CONT PRN 04/20/19 23:30 04/30/19 07:48 19.8 MLS/HR Dextrose 250 ml PRN Q15MIN PRN 04/19/19 19:30 Dextrose (Dextrose 50%-Water Syringe) 12.5 gm PRN Q15MIN PRN 04/19/19 19:30 Enoxaparin Sodium (Lovenox 60mg Syringe) 60 mg Q12HR 04/21/19 21:00 04/22/19 15:40 DC 04/21/19 20:45 60 MG Epinephrine HCl 4 mg/Sodium Chloride 254 ml @ 42.935 mls/ hr CONT PRN 04/21/19 05:00 Fentanyl Citrate 30 ml @ 0 mls/hr CONT PRN PRN 04/20/19 17:15 04/30/19 06:13 2.5 MLS/HR Info (Tpn Per Pharmacy) 1 each PRN DAILY PRN 04/25/19 11:15 04/29/19 13:38 1 EACH Insulin Glargine (Lantus Syringe) 20 unit QHS 04/27/19 21:00 04/29/19 20:31 20 UNIT Insulin Human Lispro (HumaLOG) 20 units 1X ONCE 04/27/19 11:45 04/27/19 11:46 DC 04/27/19 11:53 20 UNITS Lactic Acid (Lac-Hydrin) 1 gauri BID 04/20/19 21:00 04/30/19 08:33 1 GAURI Lidocaine HCl (Xylocaine 2% Topical 5gm Tube) 5 gauri STK-MED ONCE 04/19/19 12:00 04/21/19 10:21 DC Linezolid/Dextrose 300 ml @ 300 mls/hr Q12HR 04/28/19 09:00 04/30/19 08:33 300 MLS/HR Lorazepam (Ativan Inj) 1 mg PRN 1X ONCE 04/20/19 16:15 04/20/19 16:16 DC Meropenem 500 mg/ Sodium Chloride 50 ml @ 100 mls/hr Q6HRS 04/25/19 12:00 04/30/19 05:32 100 MLS/HR Metoprolol Tartrate (Lopressor Vial) 2.5 mg Q6HRS 04/20/19 14:30 04/27/19 17:52 2.5 MG Metoprolol Tartrate (Lopressor) 25 mg BID 04/20/19 14:00 04/20/19 13:34 DC Micafungin Sodium 100 mg/Dextrose 100 ml @ 100 mls/hr Q24H 04/26/19 08:30 04/30/19 08:33 100 MLS/HR Midazolam HCl 100 ml @ 5 mls/hr CONT PRN 04/20/19 17:15 04/30/19 05:32 5 MLS/HR Midazolam HCl (Versed) 5 mg 1X ONCE 04/20/19 17:15 04/20/19 17:19 DC 04/20/19 17:38 5 MG Naloxone HCl (Narcan) 0.4 mg PRN Q2MIN PRN 04/20/19 17:15 Norepinephrine Bitartrate 250 ml @ 21.129 mls/ hr CONT PRN 04/20/19 17:30 UNV Ondansetron HCl (Zofran) 4 mg PRN Q6HRS PRN 04/20/19 10:00 04/20/19 16:04 4 MG Pantoprazole Sodium (PROTONIX VIAL for IV PUSH) 40 mg DAILYAC 04/20/19 12:30 04/30/19 08:33 40 MG Piperacillin Sod/ Tazobactam Sod 3.375 gm/Sodium Chloride 50 ml @ 100 mls/hr Q6HRS 04/20/19 18:00 04/25/19 07:48 DC 04/25/19 06:21 100 MLS/HR Potassium Chloride/Water 100 ml @ 100 mls/hr Q1H 04/20/19 12:00 04/20/19 15:59 DC 04/21/19 07:22 100 MLS/HR Potassium Phosphate 13.6 mmol/Dextrose 104.5333 ml @ 52.267 m... ONCE ONCE 04/27/19 13:00 04/27/19 14:59 DC 04/27/19 13:09 52.267 MLS/HR Potassium Phosphate 15 mmol/ Sodium Chloride 255 ml @ 127.5 mls/ hr 1X ONCE 04/25/19 14:00 04/25/19 15:59 DC 04/25/19 15:06 127.5 MLS/HR Potassium Chloride (Klor-Con) 40 meq 1X ONCE 04/20/19 11:30 04/20/19 11:31 Cancel Propofol 100 ml @ 1.69 mls/hr CONT PRN 04/20/19 17:15 04/20/19 17:36 6.761 MLS/HR Rocuronium [employer] (Zemuron) 50 mg STK-MED ONCE 04/20/19 18:00 04/21/19 09:09 DC Sodium Acetate 30 meq/Sodium Phosphate 10 mmol/ Potassium Phosphate 18 mmol/ Magnesium Sulfate 10 meq/ Multivitamins 10 ml/Chromium/ Copper/Manganese/ Seleni/Zn 1 ml/ Insulin Human Regular 20 unit/ Total Parenteral Nutrition/Amino Acids/Dextrose/ Fat Emulsion Intravenous 1,560 ml @ 65 mls/hr TPN CONT 04/29/19 22:00 04/30/19 21:59 04/29/19 22:04 65 MLS/HR Sodium Acetate 70 meq/Sodium Phosphate 10 mmol/ Potassium Chloride 30 meq/ Potassium Phosphate 18 mmol/ Magnesium Sulfate 10 meq/ Multivitamins 10 ml/Chromium/ Copper/Manganese/ Seleni/Zn 1 ml/ Insulin Human Regular 20 unit/ Total Parenteral Nutrition/Amino Acids/Dextrose/ Fat Emuls... 1,512 ml @ 63 mls/hr TPN CONT 04/27/19 22:00 04/28/19 21:59 DC 04/27/19 21:13 63 MLS/HR Sodium Acetate 70 meq/Sodium Phosphate 10 mmol/ Potassium Phosphate 18 mmol/ Magnesium Sulfate 10 meq/ Multivitamins 10 ml/Chromium/ Copper/Manganese/ Seleni/Zn 1 ml/ Insulin Human Regular 20 unit/ Potassium Acetate 30 meq/Total Parenteral Nutrition/Amino Acids/Dextrose/ Fat Emuls... 1,560 ml @ 65 mls/hr TPN CONT 04/28/19 22:00 04/29/19 21:59 DC 04/28/19 21:12 65 MLS/HR Sodium Acetate 90 meq/Sodium Phosphate 10 mmol/ Potassium Chloride 50 meq/ Potassium Phosphate 15 mmol/ Magnesium Sulfate 10 meq/Calcium Gluconate 10 meq/ Multivitamins 10 ml/Chromium/ Copper/Manganese/ Seleni/Zn 1 ml/ Insulin Human Regular 20 unit/ Total Parenteral Nutrition/Amino Acids/Dextro... 1,512 ml @ 63 mls/hr TPN CONT 04/26/19 22:00 04/27/19 21:59 DC 04/26/19 22:12 63 MLS/HR Sodium Bicarbonate (Sodium Bicarb Adult 8.4% Syr) 50 meq 1X ONCE 04/27/19 10:15 04/27/19 10:16 DC 04/27/19 10:16 50 MEQ Sodium Chloride 1,000 ml @ 1,000 mls/hr 1X ONCE 04/26/19 11:00 04/26/19 11:59 DC 04/26/19 11:13 1,000 MLS/HR Sodium Chloride 90 meq/Potassium Chloride 50 meq/ Potassium Phosphate 15 mmol/ Magnesium Sulfate 10 meq/Calcium Gluconate 10 meq/ Multivitamins 10 ml/Chromium/ Copper/Manganese/ Seleni/Zn 1 ml/ Insulin Human Regular 10 unit/ Total Parenteral Nutrition/Amino Acids/Dextrose/ Fat Emulsion Intravenous 1,512 ml @ 63 mls/hr TPN CONT 04/25/19 22:00 04/26/19 21:59 DC 04/25/19 23:10 63 MLS/HR Sodium Phosphate 30 mmol/Dextrose 260 ml @ 65 mls/hr 1X ONCE 04/26/19 15:00 04/26/19 18:59 DC 04/26/19 15:11 65 MLS/HR Succinylcholine Chloride (Anectine) 80 mg 1X ONCE 04/20/19 17:30 04/20/19 17:31 DC 04/20/19 17:36 80 MG Vancomycin HCl (Vanco Per Pharmacy) 1 each PRN DAILY PRN 04/19/19 19:15 04/21/19 09:40 DC 04/20/19 14:29 1 EACH Vancomycin HCl (Vancomycin Trough Level) 1 each 1X ONCE 04/21/19 07:30 04/21/19 07:31 DC 04/21/19 10:49 1 EACH Vancomycin HCl 1.5 gm/Sodium Chloride 500 ml @ 250 mls/hr Q12H 04/20/19 08:00 04/21/19 09:40 DC 04/20/19 20:04 250 MLS/HR Vancomycin HCl 2 gm/Sodium Chloride 500 ml @ 250 mls/hr 1X ONCE 04/19/19 19:15 04/19/19 21:14 DC 04/19/19 20:01 250 MLS/HR Vasopressin 40 unit/Dextrose 102 ml @ 6 mls/hr CONT PRN 04/21/19 04:00 04/24/19 15:38 6 MLS/HR Labs: Lab Laboratory Tests Test 04/29/19 11:26 04/29/19 16:43 04/29/19 20:27 04/29/19 23:42 Glucose (Fingerstick) 186 mg/dL (70-99) 212 mg/dL (70-99) 202 mg/dL (70-99) 214 mg/dL (70-99) Test 04/30/19 04:14 04/30/19 05:45 04/30/19 07:15 Glucose (Fingerstick) 190 mg/dL (70-99) White Blood Count 25.2 x10^3/uL (4.0-11.0) Red Blood Count 4.39 x10^6/uL (3.50-5.40) Hemoglobin 9.9 g/dL (12.0-15.5) Hematocrit 32.6 % (36.0-47.0) Mean Corpuscular Volume 74 fL (79-100) Mean Corpuscular Hemoglobin 23 pg (25-35) Mean Corpuscular Hemoglobin Concent 30 g/dL (31-37) Red Cell Distribution Width 18.8 % (11.5-14.5) Platelet Count 99 x10^3/uL (140-400) Neutrophils (%) (Auto) 92 % (31-73) Lymphocytes (%) (Auto) 4 % (24-48) Monocytes (%) (Auto) 4 % (0-9) Eosinophils (%) (Auto) 0 % (0-3) Basophils (%) (Auto) 0 % (0-3) Neutrophils # (Auto) 23.2 x10^3/uL (1.8-7.7) Lymphocytes # (Auto) 1.0 x10^3/uL (1.0-4.8) Monocytes # (Auto) 0.9 x10^3/uL (0.0-1.1) Eosinophils # (Auto) 0.1 x10^3/uL (0.0-0.7) Basophils # (Auto) 0.1 x10^3/uL (0.0-0.2) Sodium Level 148 mmol/L (136-145) Potassium Level 4.7 mmol/L (3.5-5.1) Chloride Level 112 mmol/L (98-107) Carbon Dioxide Level 23 mmol/L (21-32) Anion Gap 13 (6-14) Blood Urea Nitrogen 83 mg/dL (7-20) Creatinine 1.1 mg/dL (0.6-1.0) Estimated GFR (Cockcroft-Gault) 50.0 Glucose Level 190 mg/dL (70-99) Calcium Level 8.5 mg/dL (8.5-10.1) O2 Saturation 94 % (92-99) Arterial Blood pH 7.42 (7.35-7.45) Arterial Blood pCO2 at Patient Temp 30 mmHg (35-46) Arterial Blood pO2 at Patient Temp 71 mmHg (65-108) Arterial Blood HCO3 19 mmol/L (21-28) Arterial Blood Base Excess -5 mmol/L (-3-3) FiO2 35 Micro RUN DATE: 04/23/19 PAGE 1 RUN TIME: 1510 [facility] [address] [place] [address] Jae Wright M.D., Agribusiness Professor PATIENT: XENA LEE ACCT: [id number] LOC: 1 [place] ICU U: [id number] AGE/SX: 63/F ROOM: 115 RE04/19/[address]: ASHLY SIEGEL MD : 1955 BED: 1 DIS: STATUS: ADM IN TLOC: SPEC #: [id number] WEST: 04/19/19 STATUS: JOHANNY REQ #: [id number] RECD: 04/19/[address] [facility] [address]: BENJIE DE LOS SANTOS MD SOURCE: BLOOD ENTR: 04/20/19-[address] [facility] [address]: [facility]OVAN[facility]: ORDERED: BLD CULT - LC -- Procedure Result BLOOD CULTURE LC Final Preliminary report Final report BLD CULT RESULT 1 Final Comment Staphylococcus species Performed at: - [facility], [place], [place] [id number] Respiratory Manager: BHARGAVI Smart MD, Phone: [phone] Staphylococcus epidermidis Based on susceptibility to oxacillin this isolate would be susceptible to: *Penicillinase-stable penicillins, such as: Cloxacillin, Dicloxacillin, Nafcillin *Beta-lactam combination agents, such as: Amoxicillin-clavulanic acid, Ampicillin-sulbactam, Piperacillin-tazobactam *Oral cephems, such as: Cefaclor, Cefdinir, Cefpodoxime, Cefprozil, Cefuroxime, Cephalexin, Loracarbef *Parenteral cephems, such as: Cefazolin, Cefepime, Cefotaxime, Cefotetan, Ceftaroline, Ceftizoxime, Ceftriaxone, Cefuroxime *Carbapenems, such as: Doripenem, Ertapenem, Imipenem, Meropenem ANTIMICROBIAL SUSCEPTIBILITY Final Comment S = Susceptible; I = Intermediate; R = Resistant P = Positive; N = Negative MICS are expressed in micrograms per mL Antibiotic RSLT#1 RSLT#2 RSLT#3 RSLT#4 Ciprofloxacin S<=0.5 Clindamycin S<=0.25 Erythromycin R>=8 Gentamicin S<=0.5 CONTINUED ON NEXT PAGE RUN DATE: 04/23/19 PAGE 2 RUN TIME: 1510 [facility] [address] [place] [address] Jae Wrigth M.D., Agribusiness Professor SPEC: [id number] PATIENT: XENA LEE [id number] (Continued) Procedure Result ANTIMICROBIAL SUSCEPTIBILITY Final (continued) Levofloxacin S<=0.12 Linezolid S =1 Nitrofurantoin S<=16 Oxacillin S<=0.25 Penicillin R>=0.5 Quinupristin/Dalfopristin S<=0.25 Rifampin S<=0.5 Tetracycline S<=1 Trimethoprim/Sulfa S<=10 Vancomycin S =1 Performed at: [facility] [address] [facility] [address], [place], [place] [id number] Respiratory Manager: BHARGAVI Smart MD, Phone: [phone] Objective: Assessment: MSSA Bacteremia 04/19 1 BOTTLES Leukocytosis Acute resp failure multifactorial, Pneumonia ,likely aspiration Lactic acidosis. Urinary tract infection versus hematuria. UC no growth Encephalopathy Sacral decubitus. venous stasis with weeping lesions ble Status post fall. Abdominal pain. Large adenexal mass,lymphadenopathy, likely malignancy, pt is not a surgical candidate Transaminitis,Chronic liver disease Dilated gallbladder with gallbladder sludge and wall thickening, Small upper abdominal ascites. Splenomegaly. Anemia ,Thrombocytopenia improving mycotic toe nails Umbilical hernia w/ SBO, Plan: Plan of Care cont merrem cont daptomycin and micafungin cont zyvox F/u 04/21 neg Critically ill Prognosis grim Palliative on case, d/w Nursing staff CARLITOS VILLASEÑOR MD Apr 30, 2019 08:57
[2019-04-30] MEDS: TPN PER PHARMACY MC PRN (09:51)
[2019-04-30] MEDS: NORMAL SALINE IV SCH (10:08)
[2019-04-30] MEDS: DAPTOMYCIN IV SCH (10:08)
--- NOTE | 2019-04-30 11:10 | PDOC ---
PULMONARY PROGRESS NOTES Subjective on vent, on peep 5, fio2 40%, sedated ,on levo nursing reports minimal secretions, no reported asynchrony Vitals Vital Signs Date Time Temp Pulse Resp B/P (MAP) Pulse Ox O2 Delivery O2 Flow Rate FiO2 04/30/19 10:00 84 23 116/70 (85) 98 Ventilator 04/30/19 08:00 98.8 98.8 04/29/19 12:07 98.0 Comments unable to obtain 2/2 intubation/sedation Lungs: Clear (BUL), Other (deminished in BLL) Cardiovascular: S1, S2 Abdomen: Other (obese, distended ) Extremities: Other (lymphedema in BLE ) Skin: Warm, Dry Labs Laboratory Tests Test 04/28/19 12:13 04/28/19 16:29 04/28/19 20:18 04/29/19 00:51 Glucose (Fingerstick) 231 mg/dL (70-99) 219 mg/dL (70-99) 192 mg/dL (70-99) 173 mg/dL (70-99) Test 04/29/19 03:59 04/29/19 05:30 04/29/19 08:30 04/29/19 11:26 Glucose (Fingerstick) 152 mg/dL (70-99) 148 mg/dL (70-99) 186 mg/dL (70-99) White Blood Count 24.5 x10^3/uL (4.0-11.0) Red Blood Count 4.28 x10^6/uL (3.50-5.40) Hemoglobin 9.7 g/dL (12.0-15.5) Hematocrit 31.6 % (36.0-47.0) Mean Corpuscular Volume 74 fL (79-100) Mean Corpuscular Hemoglobin 23 pg (25-35) Mean Corpuscular Hemoglobin Concent 31 g/dL (31-37) Red Cell Distribution Width 18.4 % (11.5-14.5) Platelet Count 88 x10^3/uL (140-400) Neutrophils (%) (Auto) 89 % (31-73) Lymphocytes (%) (Auto) 6 % (24-48) Monocytes (%) (Auto) 5 % (0-9) Eosinophils (%) (Auto) 1 % (0-3) Basophils (%) (Auto) 1 % (0-3) Neutrophils # (Auto) 21.7 x10^3/uL (1.8-7.7) Lymphocytes # (Auto) 1.3 x10^3/uL (1.0-4.8) Monocytes # (Auto) 1.1 x10^3/uL (0.0-1.1) Eosinophils # (Auto) 0.1 x10^3/uL (0.0-0.7) Basophils # (Auto) 0.1 x10^3/uL (0.0-0.2) Sodium Level 147 mmol/L (136-145) Potassium Level 4.9 mmol/L (3.5-5.1) Chloride Level 114 mmol/L (98-107) Carbon Dioxide Level 23 mmol/L (21-32) Anion Gap 10 (6-14) Blood Urea Nitrogen 76 mg/dL (7-20) Creatinine 1.1 mg/dL (0.6-1.0) Estimated GFR (Cockcroft-Gault) 50.0 Glucose Level 127 mg/dL (70-99) Calcium Level 8.3 mg/dL (8.5-10.1) Phosphorus Level 3.3 mg/dL (2.6-4.7) Magnesium Level 2.1 mg/dL (1.8-2.4) O2 Saturation 94 % (92-99) Arterial Blood pH 7.42 (7.35-7.45) Arterial Blood pCO2 at Patient Temp 33 mmHg (35-46) Arterial Blood pO2 at Patient Temp 73 mmHg (65-108) Arterial Blood HCO3 21 mmol/L (21-28) Arterial Blood Base Excess -3 mmol/L (-3-3) FiO2 35 Test 04/29/19 16:43 04/29/19 20:27 04/29/19 23:42 04/30/19 04:14 Glucose (Fingerstick) 212 mg/dL (70-99) 202 mg/dL (70-99) 214 mg/dL (70-99) 190 mg/dL (70-99) Test 04/30/19 05:45 04/30/19 07:15 White Blood Count 25.2 x10^3/uL (4.0-11.0) Red Blood Count 4.39 x10^6/uL (3.50-5.40) Hemoglobin 9.9 g/dL (12.0-15.5) Hematocrit 32.6 % (36.0-47.0) Mean Corpuscular Volume 74 fL (79-100) Mean Corpuscular Hemoglobin 23 pg (25-35) Mean Corpuscular Hemoglobin Concent 30 g/dL (31-37) Red Cell Distribution Width 18.8 % (11.5-14.5) Platelet Count 99 x10^3/uL (140-400) Neutrophils (%) (Auto) 92 % (31-73) Lymphocytes (%) (Auto) 4 % (24-48) Monocytes (%) (Auto) 4 % (0-9) Eosinophils (%) (Auto) 0 % (0-3) Basophils (%) (Auto) 0 % (0-3) Neutrophils # (Auto) 23.2 x10^3/uL (1.8-7.7) Lymphocytes # (Auto) 1.0 x10^3/uL (1.0-4.8) Monocytes # (Auto) 0.9 x10^3/uL (0.0-1.1) Eosinophils # (Auto) 0.1 x10^3/uL (0.0-0.7) Basophils # (Auto) 0.1 x10^3/uL (0.0-0.2) Sodium Level 148 mmol/L (136-145) Potassium Level 4.7 mmol/L (3.5-5.1) Chloride Level 112 mmol/L (98-107) Carbon Dioxide Level 23 mmol/L (21-32) Anion Gap 13 (6-14) Blood Urea Nitrogen 83 mg/dL (7-20) Creatinine 1.1 mg/dL (0.6-1.0) Estimated GFR (Cockcroft-Gault) 50.0 Glucose Level 190 mg/dL (70-99) Calcium Level 8.5 mg/dL (8.5-10.1) O2 Saturation 94 % (92-99) Arterial Blood pH 7.42 (7.35-7.45) Arterial Blood pCO2 at Patient Temp 30 mmHg (35-46) Arterial Blood pO2 at Patient Temp 71 mmHg (65-108) Arterial Blood HCO3 19 mmol/L (21-28) Arterial Blood Base Excess -5 mmol/L (-3-3) FiO2 35 Laboratory Tests Test 04/29/19 11:26 04/29/19 16:43 04/29/19 20:27 04/29/19 23:42 Glucose (Fingerstick) 186 mg/dL (70-99) 212 mg/dL (70-99) 202 mg/dL (70-99) 214 mg/dL (70-99) Test 04/30/19 04:14 04/30/19 05:45 04/30/19 07:15 Glucose (Fingerstick) 190 mg/dL (70-99) White Blood Count 25.2 x10^3/uL (4.0-11.0) Red Blood Count 4.39 x10^6/uL (3.50-5.40) Hemoglobin 9.9 g/dL (12.0-15.5) Hematocrit 32.6 % (36.0-47.0) Mean Corpuscular Volume 74 fL (79-100) Mean Corpuscular Hemoglobin 23 pg (25-35) Mean Corpuscular Hemoglobin Concent 30 g/dL (31-37) Red Cell Distribution Width 18.8 % (11.5-14.5) Platelet Count 99 x10^3/uL (140-400) Neutrophils (%) (Auto) 92 % (31-73) Lymphocytes (%) (Auto) 4 % (24-48) Monocytes (%) (Auto) 4 % (0-9) Eosinophils (%) (Auto) 0 % (0-3) Basophils (%) (Auto) 0 % (0-3) Neutrophils # (Auto) 23.2 x10^3/uL (1.8-7.7) Lymphocytes # (Auto) 1.0 x10^3/uL (1.0-4.8) Monocytes # (Auto) 0.9 x10^3/uL (0.0-1.1) Eosinophils # (Auto) 0.1 x10^3/uL (0.0-0.7) Basophils # (Auto) 0.1 x10^3/uL (0.0-0.2) Sodium Level 148 mmol/L (136-145) Potassium Level 4.7 mmol/L (3.5-5.1) Chloride Level 112 mmol/L (98-107) Carbon Dioxide Level 23 mmol/L (21-32) Anion Gap 13 (6-14) Blood Urea Nitrogen 83 mg/dL (7-20) Creatinine 1.1 mg/dL (0.6-1.0) Estimated GFR (Cockcroft-Gault) 50.0 Glucose Level 190 mg/dL (70-99) Calcium Level 8.5 mg/dL (8.5-10.1) O2 Saturation 94 % (92-99) Arterial Blood pH 7.42 (7.35-7.45) Arterial Blood pCO2 at Patient Temp 30 mmHg (35-46) Arterial Blood pO2 at Patient Temp 71 mmHg (65-108) Arterial Blood HCO3 19 mmol/L (21-28) Arterial Blood Base Excess -5 mmol/L (-3-3) FiO2 35 Medications Active Scripts Medications Dose Route/Sig Max Daily Dose Days Date Category No Known Medications Prior To Admisstion (Info) Each 1 Each 1X 04/20/[address] abdomen Limited exam due to lack of IV contrast. 1. Bilateral lung bases consolidations, left more than right may be secondary to atelectasis or pneumonia. 2. Cirrhosis with evidence of portal venous hypertension. Stable small volume ascites. 3. Umbilical hernia containing focal loop of small bowel with resolution of previously seen dilated bowel loops. No imaging evidence of high-grade bowel obstruction. 4. Enlarged retroperitoneal and inguinal lymph nodes concerning for lymphoma or metastasis. 5. Omental nodularity suggests a metastasis or pneumatosis. 6. Left adnexal masslike lesion may be of ovarian origin or pedunculated fibroid. Nonemergent MRI of the pelvis with IV contrast recommended. Electronically signed by: Miguel Hampton DO (04/26/2019 1:19 PM) [facility] Impression . 1. Acute hypercapnic respiratory failure secondary to multifactorial etiologies hypovolemic and septic shock., now with recurrent fever, lactic acidosis 2. bilateral infiltrates, likely related to aspiration pneumonia. 3. Acute kidney injury secondary to hypotension and shock. 4. Small bowel obstruction. She has been seen by Surgery and not a surgical candidate. Over 2 liters of fluid came out from her orogastric tube upon insertion. 5. Chronic lymphedema of the lower extremities. 6. Leukocytosis. 7. Moderate protein-calorie malnutrition. 8. fever, 9. bacteremia, gram +cocci, recent MSSA bacteremia, 10. Abnormal ct abdomen with suspected lymphoma vs malignancy Plan . 1. Continue vent support, continue sedation NO SBT 2. Broad-spectrum antibiotic per Infectious Disease recommendations. Merm/Dapto/Margarita 3. Follow all cultures, 4. Renal consultation / rec. 5. Follow Surgery recommendations. 6. Follow GI recommendations. 7. DVT and stress ulcer prophylaxis. 8. Prognosis appears to be grim. I had a long discussion with 04/27. explained multiple organ involvement and abnormal ct abd findings. He understands and agrees for comfort care.plan for withdraw of care Wednesday TYE MADRIGAL MD Apr 30, 2019 11:10
--- NOTE | 2019-04-30 11:50 | PDOC ---
[employer] [facility] PROGRESS NOTE Chief Complaint Chief Complaint Acute hypercapnic respiratory failure/ARDS Likely aspiration pneumonia Bilateral lung infiltrates RADHA SBO Chronic lymphedema of lower extremities Leukocytosis Protein/Calorie Malnutrition Bacteremia History of Present Illness History of Present Illness 04/30/19 Pt seen/examined in the ICU Pt is still currently no vent (vent setings: AC/20/500/ 35% 5PEEP) Pt sating at 99% O2 Pt is currently still sedated Chart and labs reviewed STANLEY RN 04/29/19 Pt seen/examined in the ICU Pt still currently on vent (Vent settings: AC/20/500/35% 5PEEP) Pt is sating at 97% Still on TPN and sedated 9�13�2019 Patient seen and examined She is still on the vent appears very ill critically ill Discussed with RN Vent settings AC/20/500/35% 5 PEEP On TPN Sedated 04/27/19 Pt seen/examined in the ICU and currently on vent (vent settings: AC/20/500/35% 5PEEP) Dawn to BSD Pt still has ET tube, OG tube to LIS Sedated with fentanyl POMOLOGY TEACHER and precedex Glucose currently at 376 DW RN Sating at 100% 04/26/19 Pt seen and examined in ICU on vent (vent settings: AC/20/500/35% 5PEEP) pH 7.4 Dawn to BSD in place Pt still has ET tube; OG tube to LIS Sedated with fentanyl POMOLOGY TEACHER and precedex DW RN RN taking pt for CT of abdomen Had fever overnight; given NS 1000 cc bolus Glucose taken by RN; Current glucose: 369 Currently sat-ing at 99% Chart reviewed 04/25/19 Pt seen and examined in ICU on vent (vent settings: AC/20/500/40% Peep16) Pt has ET tube and OG tube to LIS Pt has dawn to BSD Sedated with precedex and fentanyl POMOLOGY TEACHER DW RN DW nurse case management chart reviewed Vitals/I&O Vitals/I&O: Vital Signs Date Time Temp Pulse Resp B/P (MAP) Pulse Ox O2 Delivery O2 Flow Rate FiO2 04/30/19 11:31 99 Ventilator 04/30/19 11:00 88 23 118/67 (84) 04/30/19 08:00 98.8 98.8 04/29/19 12:07 98.0 I & O 04/29/19 04/29/19 04/30/19 15:00 23:00 07:00 Intake Total 500 ml 1709.85 ml 1259 ml Output Total 450 ml 465 ml 745 ml Balance 50 ml 1244.85 ml 514 ml Physical Exam Physical Exam: GENERAL: Orally intubated, sedated, mitts HEENT: Pupils equal, small. ETT/ OGT with green colored output NECK: Supple LUNGS: dec bs at bases HEART: S1, S2 ,no murmurs ABDOMEN: Soft, Umbilical hernia present. Large pannus present. EXTREMITIES: Both lower extremities have venous insufficiency, stasis dermatitis on both the legs posteriorly. Trace edema SKIN: Warm to touch. sacral wound NEUROLOGIC: Sedated on vent PICC line (04/28) General: No acute distress Heart: Regular rate, Other (distant heart tones ) Lungs: Clear (BUL), Other (deminished in BLL) Abdomen: Soft, Other (hernia, non reducible) Extremities: Other (extensive lymphedema) Skin: No rashes, No significant lesion Labs Labs: Laboratory Tests Test 04/29/19 16:43 04/29/19 20:27 04/29/19 23:42 04/30/19 04:14 Glucose (Fingerstick) 212 mg/dL (70-99) 202 mg/dL (70-99) 214 mg/dL (70-99) 190 mg/dL (70-99) Test 04/30/19 05:45 04/30/19 07:15 White Blood Count 25.2 x10^3/uL (4.0-11.0) Red Blood Count 4.39 x10^6/uL (3.50-5.40) Hemoglobin 9.9 g/dL (12.0-15.5) Hematocrit 32.6 % (36.0-47.0) Mean Corpuscular Volume 74 fL (79-100) Mean Corpuscular Hemoglobin 23 pg (25-35) Mean Corpuscular Hemoglobin Concent 30 g/dL (31-37) Red Cell Distribution Width 18.8 % (11.5-14.5) Platelet Count 99 x10^3/uL (140-400) Neutrophils (%) (Auto) 92 % (31-73) Lymphocytes (%) (Auto) 4 % (24-48) Monocytes (%) (Auto) 4 % (0-9) Eosinophils (%) (Auto) 0 % (0-3) Basophils (%) (Auto) 0 % (0-3) Neutrophils # (Auto) 23.2 x10^3/uL (1.8-7.7) Lymphocytes # (Auto) 1.0 x10^3/uL (1.0-4.8) Monocytes # (Auto) 0.9 x10^3/uL (0.0-1.1) Eosinophils # (Auto) 0.1 x10^3/uL (0.0-0.7) Basophils # (Auto) 0.1 x10^3/uL (0.0-0.2) Sodium Level 148 mmol/L (136-145) Potassium Level 4.7 mmol/L (3.5-5.1) Chloride Level 112 mmol/L (98-107) Carbon Dioxide Level 23 mmol/L (21-32) Anion Gap 13 (6-14) Blood Urea Nitrogen 83 mg/dL (7-20) Creatinine 1.1 mg/dL (0.6-1.0) Estimated GFR (Cockcroft-Gault) 50.0 Glucose Level 190 mg/dL (70-99) Calcium Level 8.5 mg/dL (8.5-10.1) O2 Saturation 94 % (92-99) Arterial Blood pH 7.42 (7.35-7.45) Arterial Blood pCO2 at Patient Temp 30 mmHg (35-46) Arterial Blood pO2 at Patient Temp 71 mmHg (65-108) Arterial Blood HCO3 19 mmol/L (21-28) Arterial Blood Base Excess -5 mmol/L (-3-3) FiO2 35 Review of Systems Review of Systems: Unable to obtain since pt is sedated Assessment and Plan Assessmemt and Plan Problems Medical Problems: (1) Diabetes Status: Acute (2) Fall Status: Acute (3) Severe sepsis Status: Acute (4) UTI (urinary tract infection) Status: Acute (5) Weakness Status: Acute Acute hypercapnic respiratory failure/ARDS Likely aspiration pneumonia Bilateral lung infiltrates RADHA SBO Diabetes Mellitus Chronic lymphedema of lower extremities Leukocytosis Protein/Calorie Malnutrition Bacteremia Plan ICU monitoring Continue Vent weaning Continue sedation with precedex and fentanyl POMOLOGY TEACHER Maintain OG to LIS sliding scale insulin Q4 20 Lantus Sub q24 hrs Accucheck Q4hr Dawn to BSD Prognosis guarded Trend labs Full Code DVT prophylaxis PICC line TPN Appreciate subspecialty input Total time 32 min Comment Review of Relevant I have reviewed the following items ashok (where applicable) has been applied. Medications: Current Medications Medications (Trade) Dose Ordered Sig/[place] Route PRN Reason Start Time Stop Time Status Last Admin Dose Admin Sodium Acetate 30 meq/Sodium Phosphate 10 mmol/ Potassium Phosphate 18 mmol/ Magnesium Sulfate 10 meq/ Multivitamins 10 ml/Chromium/ Copper/Manganese/ Seleni/Zn 1 ml/ Insulin Human Regular 20 unit/ Total Parenteral Nutrition/Amino Acids/Dextrose/ Fat Emulsion Intravenous 1,560 ml @ 65 mls/hr TPN CONT IV 04/29/19 22:00 04/30/19 21:59 04/29/19 22:04 CHRIS PHILLIPS III DO Apr 30, 2019 11:50
[2019-04-30] MEDS: IV NORMAL SALINE 1000ML BAG 1,000 ML IV SCH (20:06)
[2019-04-30] MEDS: NOREPINEPHRIN 8MG/250ML PREMIX 250 ML IV PRN (20:07)
[2019-04-30] MEDS: ACETAMINOPHEN 650 MG SUPP.RECT. PR PRN (20:34)
[2019-04-30] MEDS: INSULIN GLARGINE SYRINGE. SQ SCH (20:37)
--- NOTE | 2019-04-30 20:50 | NUR ---
At 1999 assessment, patient's temperature 101.7F, Dr Dayan conley. Returned page at 2024, notified of fever, reviewed most recent culture results and antibiotics patient is receiving. Orders received for Blood cultures x2-one venous and one from PICC, sputum culture, and UA C&S; see orders. Sputum obtained from induction and Urine from Drew catheter at 2049.
[2019-04-30] MEDS ORDERED: AMINO ACID IV SCH ×10 (22:00)
[2019-04-30] MEDS ORDERED: [UNRECOGNIZED DRUG - OTHER] IV SCH ×10 (22:00)
[2019-04-30] MEDS ORDERED: TOTAL PARENTERAL NUTRITION IV SCH ×10 (22:00)
[2019-04-30] MEDS ORDERED: DEXTROSE 70% IV SCH ×10 (22:00)
[2019-04-30 22:06] LABS: BILIRUBIN,URINE SMALL (NEG); CLARITY,URINE CLOUDY; COLOR,URINE AMBER; NITRITE,URINE NEGATIVE (NEG); PROTEIN,URINE NEGATIVE (NEG-TRACE)
[2019-04-30 22:18] LABS: HYALINE CASTS, URINE MODERATE /HPF; RBC,URINE >40 /HPF (0-2)
[2019-04-30 22:26] LABS: AMORPHOUS SEDIMENT,UR PRESENT /HPF; BACTERIA,URINE FEW /HPF (0-FEW)
[2019-04-30] MEDS: IV NORMAL SALINE 500ML BAG 500 ML IV PRN (22:57)
[2019-05-01] VITALS (19 sets, daily range): BP systolic 66–169; BP diastolic 52–82
[2019-05-01] MEDS: INSULIN LISPRO 300 UNITS/3 ML VIAL. SQ SCH ×3 (00:02→10:27)
[2019-05-01] MEDS: MEROPENEM 500 MG in IV NORMAL SALINE 50ML 50 ML IV SCH ×4 (00:24→12:16)
[2019-05-01] MEDS: DEXMEDETOMIDINE 400 MCG in IV NORMAL SALINE 100ML 96 ML IV PRN ×4 (02:56→16:26)
[2019-05-01] MEDS: MIDAZOLAM 100mg/100ml NS BAG 100 ML IV PRN (05:06)
[2019-05-01] MEDS: METOPROLOL TARTRATE 5 MG/5 ML VIAL. IVP SCH ×3 (05:42→10:45)
[2019-05-01 06:13] LABS: BASO # 0.2 x10^3/uL (0.0-0.2); BASO % 1 % (0-3); EOS # 0.1 x10^3/uL (0.0-0.7); EOS % 1 % (0-3); HEMATOCRIT 32.7 % (36.0-47.0); HEMOGLOBIN 9.9 g/dL (12.0-15.5); LYMPH # 1.1 x10^3/uL (1.0-4.8); LYMPH % 4 % (24-48); MEAN CORPUSCULAR HEMOGLOBIN 23 pg (25-35); MEAN CORPUSCULAR HGB CONC 30 g/dL (31-37); MEAN CORPUSCULAR VOLUME 75 fL (79-100); MONO # 1.1 x10^3/uL (0.0-1.1); MONO % 4 % (0-9); NEUT # 23.2 x10^3/uL (1.8-7.7); NEUT % 90 % (31-73); PLATELET COUNT 114 x10^3/uL (140-400); RED BLOOD COUNT 4.39 x10^6/uL (3.50-5.40); RED CELL DISTRIBUTION WIDTH 19.1 % (11.5-14.5); WHITE BLOOD COUNT 25.8 x10^3/uL (4.0-11.0)
[2019-05-01 06:29] LABS: CALCIUM 8.7 mg/dL (8.5-10.1); CREATININE 1.2 mg/dL (0.6-1.0); GFR 45.2; POTASSIUM 4.8 mmol/L (3.5-5.1)
[2019-05-01 09:03] LABS: % LYMPHS 8 % (24-48); % MONOS 1 % (0-10); % SEGS 91 % (35-66); ANISOCYTOSIS SLIGHT; PLT ESTIMATE DECREASED (ADEQUATE)
[2019-05-01 09:04] LABS: HYPOCHROMIA MOD
--- NOTE | 2019-05-01 09:28 | PDOC ---
PROGRESS NOTES Subjective Subjective HPI - f/u of Pelvic mass ROS - on vent Objective Objective Vital Signs Date Time Temp Pulse Resp B/P (MAP) Pulse Ox O2 Delivery O2 Flow Rate FiO2 05/01/19 08:06 100 Ventilator 05/01/19 07:15 92 24 93/55 (68) 05/01/19 03:00 99.8 99.8 04/30/19 16:52 98.0 Intake and Output 05/01/19 06:59 Intake Total 3538 ml Output Total 1230 ml Balance 2308 ml IV Total 3538 ml Output Urine Total 930 ml Gastric Drainage Total 300 ml # Voids 1 Physical Exam Heart: Regular rate General: No acute distress Assessment Assessment Problems Medical Problems: (1) Diabetes Status: Acute (2) Fall Status: Acute (3) Severe sepsis Status: Acute (4) UTI (urinary tract infection) Status: Acute (5) Weakness Status: Acute IMPRESSION AND PLAN: 1. Pelvic mass. Left adnexal mass is present measuring 9 x 8.5 cm, which could be an ovarian etiology versus a pedunculated fibroid. Presence of omental nodularity raises the concern for metastatic disease. There is also evidence of retroperitoneal and inguinal lymph nodes concerning for lymphoma or metastasis. However, the patient's functional status is very poor and she is not a candidate for surgery and I appreciate surgical consultation. Hence, since we will not be able to offer any therapeutic interventions if this is malignant, I would not pursue with the biopsy. Prognosis is poor per multiple consultants. Appreciate palliative care consultation. Appreciate pulm recommendations. I d/w RN 2. Respiratory failure. She is on mechanical ventilation. Appreciate pulmonary management. 3. Anemia. Continue to monitor. 4. Leukocytosis, reactive to monitor. 5. Thrombocytopenia, which is also reactive. Her platelets were normal at the time of admission. Plt now 114. Comment Review of Relevant I have reviewed the following items ashok (where applicable) has been applied. Labs Laboratory Tests Test 04/29/19 11:26 04/29/19 16:43 04/29/19 20:27 04/29/19 23:42 Glucose (Fingerstick) 186 mg/dL (70-99) 212 mg/dL (70-99) 202 mg/dL (70-99) 214 mg/dL (70-99) Test 04/30/19 04:14 04/30/19 05:45 04/30/19 07:15 04/30/19 15:33 Glucose (Fingerstick) 190 mg/dL (70-99) 250 mg/dL (70-99) White Blood Count 25.2 x10^3/uL (4.0-11.0) Red Blood Count 4.39 x10^6/uL (3.50-5.40) Hemoglobin 9.9 g/dL (12.0-15.5) Hematocrit 32.6 % (36.0-47.0) Mean Corpuscular Volume 74 fL (79-100) Mean Corpuscular Hemoglobin 23 pg (25-35) Mean Corpuscular Hemoglobin Concent 30 g/dL (31-37) Red Cell Distribution Width 18.8 % (11.5-14.5) Platelet Count 99 x10^3/uL (140-400) Neutrophils (%) (Auto) 92 % (31-73) Lymphocytes (%) (Auto) 4 % (24-48) Monocytes (%) (Auto) 4 % (0-9) Eosinophils (%) (Auto) 0 % (0-3) Basophils (%) (Auto) 0 % (0-3) Neutrophils # (Auto) 23.2 x10^3/uL (1.8-7.7) Lymphocytes # (Auto) 1.0 x10^3/uL (1.0-4.8) Monocytes # (Auto) 0.9 x10^3/uL (0.0-1.1) Eosinophils # (Auto) 0.1 x10^3/uL (0.0-0.7) Basophils # (Auto) 0.1 x10^3/uL (0.0-0.2) Sodium Level 148 mmol/L (136-145) Potassium Level 4.7 mmol/L (3.5-5.1) Chloride Level 112 mmol/L (98-107) Carbon Dioxide Level 23 mmol/L (21-32) Anion Gap 13 (6-14) Blood Urea Nitrogen 83 mg/dL (7-20) Creatinine 1.1 mg/dL (0.6-1.0) Estimated GFR (Cockcroft-Gault) 50.0 Glucose Level 190 mg/dL (70-99) Calcium Level 8.5 mg/dL (8.5-10.1) O2 Saturation 94 % (92-99) Arterial Blood pH 7.42 (7.35-7.45) Arterial Blood pCO2 at Patient Temp 30 mmHg (35-46) Arterial Blood pO2 at Patient Temp 71 mmHg (65-108) Arterial Blood HCO3 19 mmol/L (21-28) Arterial Blood Base Excess -5 mmol/L (-3-3) FiO2 35 Test 04/30/19 18:04 04/30/19 20:11 04/30/19 20:55 04/30/19 23:48 Glucose (Fingerstick) 262 mg/dL (70-99) 203 mg/dL (70-99) 213 mg/dL (70-99) Urine Collection Type Unknown Urine Color Yani Urine Clarity Cloudy Urine pH 5.0 Urine Specific [place] 1.020 Urine Protein Negative mg/dL (NEG-TRACE) Urine Glucose (UA) Negative mg/dL (NEG) Urine Ketones (Stick) Negative mg/dL (NEG) Urine Blood Large (NEG) Urine Nitrite Negative (NEG) Urine Bilirubin Small (NEG) Urine Urobilinogen Dipstick 1.0 mg/dL (0.2 mg/dL) Urine Leukocyte Esterase Moderate (NEG) Urine RBC >40 /HPF (0-2) Urine WBC 11-20 /HPF (0-4) Urine Amorphous Sediment Present /HPF Urine Bacteria Few /HPF (0-FEW) Urine Hyaline Casts Moderate /HPF Urine Mucus Mod /LPF Test 05/01/19 04:03 05/01/19 05:50 Glucose (Fingerstick) 180 mg/dL (70-99) White Blood Count 25.8 x10^3/uL (4.0-11.0) Red Blood Count 4.39 x10^6/uL (3.50-5.40) Hemoglobin 9.9 g/dL (12.0-15.5) Hematocrit 32.7 % (36.0-47.0) Mean Corpuscular Volume 75 fL (79-100) Mean Corpuscular Hemoglobin 23 pg (25-35) Mean Corpuscular Hemoglobin Concent 30 g/dL (31-37) Red Cell Distribution Width 19.1 % (11.5-14.5) Platelet Count 114 x10^3/uL (140-400) Neutrophils (%) (Auto) 90 % (31-73) Lymphocytes (%) (Auto) 4 % (24-48) Monocytes (%) (Auto) 4 % (0-9) Eosinophils (%) (Auto) 1 % (0-3) Basophils (%) (Auto) 1 % (0-3) Neutrophils # (Auto) 23.2 x10^3/uL (1.8-7.7) Lymphocytes # (Auto) 1.1 x10^3/uL (1.0-4.8) Monocytes # (Auto) 1.1 x10^3/uL (0.0-1.1) Eosinophils # (Auto) 0.1 x10^3/uL (0.0-0.7) Basophils # (Auto) 0.2 x10^3/uL (0.0-0.2) Segmented Neutrophils % 91 % (35-66) Lymphocytes % 8 % (24-48) Monocytes % 1 % (0-10) Platelet Estimate Decreased (ADEQUATE) Hypochromasia Mod Anisocytosis Slight Macrocytosis Slight Sodium Level 145 mmol/L (136-145) Potassium Level 4.8 mmol/L (3.5-5.1) Chloride Level 113 mmol/L (98-107) Carbon Dioxide Level 22 mmol/L (21-32) Anion Gap 10 (6-14) Blood Urea Nitrogen 94 mg/dL (7-20) Creatinine 1.2 mg/dL (0.6-1.0) Estimated GFR (Cockcroft-Gault) 45.2 Glucose Level 191 mg/dL (70-99) Calcium Level 8.7 mg/dL (8.5-10.1) Laboratory Tests Test 04/30/19 15:33 04/30/19 18:04 04/30/19 20:11 04/30/19 20:55 Glucose (Fingerstick) 250 mg/dL (70-99) 262 mg/dL (70-99) 203 mg/dL (70-99) Urine Collection Type Unknown Urine Color Yani Urine Clarity Cloudy Urine pH 5.0 Urine Specific [place] 1.020 Urine Protein Negative mg/dL (NEG-TRACE) Urine Glucose (UA) Negative mg/dL (NEG) Urine Ketones (Stick) Negative mg/dL (NEG) Urine Blood Large (NEG) Urine Nitrite Negative (NEG) Urine Bilirubin Small (NEG) Urine Urobilinogen Dipstick 1.0 mg/dL (0.2 mg/dL) Urine Leukocyte Esterase Moderate (NEG) Urine RBC >40 /HPF (0-2) Urine WBC 11-20 /HPF (0-4) Urine Amorphous Sediment Present /HPF Urine Bacteria Few /HPF (0-FEW) Urine Hyaline Casts Moderate /HPF Urine Mucus Mod /LPF Test 04/30/19 23:48 05/01/19 04:03 05/01/19 05:50 Glucose (Fingerstick) 213 mg/dL (70-99) 180 mg/dL (70-99) White Blood Count 25.8 x10^3/uL (4.0-11.0) Red Blood Count 4.39 x10^6/uL (3.50-5.40) Hemoglobin 9.9 g/dL (12.0-15.5) Hematocrit 32.7 % (36.0-47.0) Mean Corpuscular Volume 75 fL (79-100) Mean Corpuscular Hemoglobin 23 pg (25-35) Mean Corpuscular Hemoglobin Concent 30 g/dL (31-37) Red Cell Distribution Width 19.1 % (11.5-14.5) Platelet Count 114 x10^3/uL (140-400) Neutrophils (%) (Auto) 90 % (31-73) Lymphocytes (%) (Auto) 4 % (24-48) Monocytes (%) (Auto) 4 % (0-9) Eosinophils (%) (Auto) 1 % (0-3) Basophils (%) (Auto) 1 % (0-3) Neutrophils # (Auto) 23.2 x10^3/uL (1.8-7.7) Lymphocytes # (Auto) 1.1 x10^3/uL (1.0-4.8) Monocytes # (Auto) 1.1 x10^3/uL (0.0-1.1) Eosinophils # (Auto) 0.1 x10^3/uL (0.0-0.7) Basophils # (Auto) 0.2 x10^3/uL (0.0-0.2) Segmented Neutrophils % 91 % (35-66) Lymphocytes % 8 % (24-48) Monocytes % 1 % (0-10) Platelet Estimate Decreased (ADEQUATE) Hypochromasia Mod Anisocytosis Slight Macrocytosis Slight Sodium Level 145 mmol/L (136-145) Potassium Level 4.8 mmol/L (3.5-5.1) Chloride Level 113 mmol/L (98-107) Carbon Dioxide Level 22 mmol/L (21-32) Anion Gap 10 (6-14) Blood Urea Nitrogen 94 mg/dL (7-20) Creatinine 1.2 mg/dL (0.6-1.0) Estimated GFR (Cockcroft-Gault) 45.2 Glucose Level 191 mg/dL (70-99) Calcium Level 8.7 mg/dL (8.5-10.1) Microbiology 04/29/19 Blood Culture - Preliminary, Resulted NO GROWTH AFTER 2 DAYS 04/28/19 Aerobic Culture - Preliminary, Resulted 04/28/19 Aerobic Culture Result 1 (YODIT) - Preliminary, Resulted 04/28/19 Gram Stain, Resulted Pending 04/28/19 Gram Stain Result 1 (YODIT), Resulted Pending 04/26/19 Urine Culture - Final, Complete 04/26/19 Urine Culture Result 1 (YODIT) - Final, Complete 04/22/19 - Final, Complete 04/22/19 - Final, Complete 04/22/19 - Final, Complete 04/22/19 Gram Stain Evaluation - Final, Complete 04/22/19 Sputum Culture - Final, Complete 04/22/19 Sputum Result 1 - Final, Complete Medications Current Medications Sodium Chloride 1,000 ml @ 0 mls/hr 1X ONCE IV Last administered on 04/19/19at 20:10; Start 04/19/19 at 18:45; Stop 04/19/19 at 18:46; Status DC Ceftriaxone Sodium (Rocephin) 1 gm 1X ONCE IVP Last administered on 04/19/19at 19:17; Start 04/19/19 at 18:45; Stop 04/19/19 at 18:46; Status DC Sodium Chloride 1,560 ml @ 1,560 mls/hr Q1H IV ; Start 04/19/19 at 19:03; Status Cancel Vancomycin HCl (Vanco Per Pharmacy) 1 each PRN DAILY PRN MC SEE COMMENTS Last administered on 04/20/19at 14:29; Start 04/19/19 at 19:15; Stop 04/21/19 at 09:40; Status DC Vancomycin HCl 2 gm/Sodium Chloride 500 ml @ 250 mls/hr 1X ONCE IV Last administered on 04/19/19at 20:01; Start 04/19/19 at 19:15; Stop 04/19/19 at 21:14; Status DC Sodium Chloride 1,000 ml @ 1,560 mls/hr Q39M IV Last administered on 04/19/19at 19:17; Start 04/19/19 at 19:15; Stop 04/19/19 at 20:03; Status DC Ondansetron HCl (Zofran) 4 mg PRN Q8HRS PRN IV NAUSEA/VOMITING Last administer ed on 04/20/19at 09:36; Start 04/19/19 at 19:30; Stop 04/20/19 at 10:00; Status DC Acetaminophen (Tylenol) 650 mg PRN Q4HRS PRN PO FEVER; Start 04/19/19 at 19:30; Stop 04/20/19 at 19:29; Status DC Insulin Human Lispro (HumaLOG) 0-7 UNITS TIDWMEALS SQ Last administered on 04/20/19at 19:52; Start 04/20/19 at 08:00; Stop 04/21/19 at 07:48; Status DC Dextrose (Dextrose 50%-Water Syringe) 12.5 gm PRN Q15MIN PRN IV SEE COMMENTS; Start 04/19/19 at 19:30 Dextrose 250 ml PRN Q15MIN PRN IV SEE COMMENTS; Start 04/19/19 at 19:30 Vancomycin HCl 1.5 gm/Sodium Chloride 500 ml @ 250 mls/hr Q12H IV Last administered on 04/20/19at 20:04; Start 04/20/19 at 08:00; Stop 04/21/19 at 09:40; Status DC Vancomycin HCl (Vancomycin Trough Level) 1 each 1X ONCE MC Last administered on 04/21/19at 10:49; Start 04/21/19 at 07:30; Stop 04/21/19 at 07:31; Status DC Sodium Chloride 1,000 ml @ 80 mls/hr [id number] IV Last administered on 04/20/19 02:46; Start 04/20/19 at 02:30; Stop 04/20/19 at 11:23; Status DC Insulin Human Lispro (HumaLOG) 4 units 1X ONCE SQ Last administered on 04/20/19at 04:04; Start 04/20/19 at 03:15; Stop 04/20/19 at 03:16; Status DC Ondansetron HCl (Zofran) 4 mg PRN Q6HRS PRN IV NAUSEA/VOMITING Last administered on 04/20/19at 16:04; Start 04/20/19 at 10:00 Sodium Chloride 500 ml @ 500 mls/hr 1X ONCE IV Last administered on 04/20/19at 11:30; Start 04/20/19 at 11:15; Stop 04/20/19 at 12:14; Status DC Potassium Chloride (Klor-Con) 40 meq 1X ONCE PO ; Start 04/20/19 at 11:30; Stop 04/20/19 at 11:31; Status Cancel Sodium Chloride 1,000 ml @ 150 mls/hr Q6H40M IV Last administered on 04/21/19at 23:04; Start 04/20/19 at 11:30; Stop 04/22/19 at 11:58; Status DC Pantoprazole Sodium (PROTONIX VIAL for IV PUSH) 40 mg DAILYAC IVP Last administered on 04/30/19at 08:33; Start 04/20/19 at 12:30 Potassium Chloride/Water 100 ml @ 100 mls/hr Q1H IV Last administered on 04/21/19at 07:22; Start 04/20/19 at 12:00; Stop 04/20/19 at 15:59; Status DC Metoprolol Tartrate (Lopressor) 25 mg BID PO ; Start 04/20/19 at 14:00; Stop 04/20/19 at 13:34; Status DC Metoprolol Tartrate (Lopressor Vial) 2.5 mg Q6HRS IVP Last administered on 04/27/19at 17:52; Start 04/20/19 at 14:30 Piperacillin Sod/ Tazobactam Sod 3.375 gm/Sodium Chloride 50 ml @ 100 mls/hr Q6HRS IV Last administered on 04/25/19at 06:21; Start 04/20/19 at 18:00; Stop 04/25/19 at 07:48; Status DC Sodium Chloride 1,000 ml @ 0 mls/hr 1X ONCE IV ; Start 04/20/19 at 15:45; Stop 04/20/19 at 15:49; Status DC Lactic Acid (Lac-Hydrin) 1 gauri BID TP Last administered on 04/30/19at 20:53; Start 04/20/19 at 21:00 Lorazepam (Ativan Inj) 1 mg PRN Q4HRS PRN IV ANXIETY / AGITATION Last administered on 04/28/19at 15:33; Start 04/20/19 at 16:15 Lorazepam (Ativan Inj) 1 mg PRN 1X ONCE IV ; Start 04/20/19 at 16:15; Stop 04/20/19 at 16:16; Status DC Propofol 100 ml @ As Directed STK-MED ONCE IV ; Start 04/20/19 at 16:42; Stop 04/20/19 at 16:42; Status DC Norepinephrine Bitartrate 250 ml @ 21 mls/hr CONT PRN IV SEE I/O RECORD Last administered on 04/30/19at 20:16; Start 04/20/19 at 17:15 Midazolam HCl (Versed) 5 mg STK-MED ONCE .ROUTE ; Start 04/20/19 at 17:04; Stop 04/20/19 at 17:05; Status DC Propofol 20 ml @ 0 mls/hr 1X ONCE IV Last administered on 04/20/19at 17:38; Start 04/20/19 at 17:15; Stop 04/20/19 at 17:16; Status DC Succinylcholine Chloride (Anectine) 80 mg 1X ONCE IV Last administered on 04/20/19 17:36; Start 04/20/19 at 17:30; Stop 04/20/19 at 17:31; Status DC Midazolam HCl (Versed) 5 mg 1X ONCE IV Last administered on 04/20/19at 17:38; Start 04/20/19 at 17:15; Stop 04/20/19 at 17:19; Status DC Midazolam HCl 100 ml @ 5 mls/hr CONT PRN IV SEE I/O RECORD Last administered on 05/01/19at 05:06; Start 04/20/19 at 17:15 Propofol 100 ml @ 1.69 mls/hr CONT PRN IV SEE I/O RECORD Last administered on 04/20/19at 17:36; Start 04/20/19 at 17:15 Fentanyl Citrate 30 ml @ 0 mls/hr CONT PRN PRN IV PER PROTOCOL Last administered on 05/01/19at 01:23; Start 04/20/19 at 17:15 Naloxone HCl (Narcan) 0.4 mg PRN Q2MIN PRN IV SEE INSTRUCTIONS; Start 04/20/19 at 17:15 Sodium Chloride 1,000 ml @ 25 mls/hr Q24H IV Last administered on 04/30/19at 20:16; Start 04/20/19 at 17:12 Norepinephrine Bitartrate 250 ml @ 21.129 mls/ hr CONT PRN IV SEE I/O RECORD; Start 04/20/19 at 17:30; Status UNV Sodium Chloride 500 ml @ 500 mls/hr PRN Q1HR PRN IV LOW UO Last administered on 04/20/19at 19:52; Start 04/20/19 at 19:45; Stop 04/22/19 at 11:58; Status DC Dexmedetomidine HCl 400 mcg/ Sodium Chloride 100 ml @ 0 mls/hr CONT PRN IV SEDATION Last administered on 05/01/19at 02:56; Start 04/20/19 at 23:30 Sodium Chloride 500 ml @ 500 mls/hr 1X PRN PRN IV PER PROTOCOL; Start 04/20/19 at 23:30 Atropine Sulfate (ATROPINE 0.5mg SYRINGE) 0.5 mg PRN Q5MIN PRN IV SEE COMMENTS; Start 04/20/19 at 23:30 Albumin Human 100 ml @ 100 mls/hr 1X ONCE IV Last administered on 04/21/19at 01:34; Start 04/21/19 at 01:30; Stop 04/21/19 at 02:29; Status DC Sodium Chloride 1,000 ml @ 1,000 mls/hr 1X ONCE IV Last administered on 04/21/19at 05:39; Start 04/21/19 at 02:45; Stop 04/21/19 at 03:44; Status DC Albumin Human 500 ml @ 250 mls/hr Q2HR IV Last administered on 04/21/19at 06:28; Start 04/21/19 at 04:00; Stop 04/21/19 at 07:00; Status DC Vasopressin 40 unit/Dextrose 102 ml @ 6 mls/hr CONT PRN IV SEE I/O RECORD Last administered on 04/24/19at 15:38; Start 04/21/19 at 04:00 Epinephrine HCl 4 mg/Sodium Chloride 254 ml @ 42.935 mls/ hr CONT PRN IV SEE I/O RECORD; Start 04/21/19 at 05:00 Insulin Human Lispro (HumaLOG) 0-7 UNITS Q6HRS SQ Last administered on 04/25/19at 06:21; Start 04/21/19 at 12:00; Stop 04/25/19 at 10:46; Status DC Rocuronium [place] (Zemuron) 50 mg STK-MED ONCE .ROUTE ; Start 04/20/19 at 18:00; Stop 04/21/19 at 09:09; Status DC Sodium Chloride 1,000 ml @ 1,000 mls/hr 1X ONCE IV Last administered on 04/21/19at 10:53; Start 04/21/19 at 10:30; Stop 04/21/19 at 11:29; Status DC Lidocaine HCl (Xylocaine 2% Topical 5gm Tube) 5 gauri STK-MED ONCE TP ; Start 04/19/19 at 12:00; Stop 04/21/19 at 10:21; Status DC Acetaminophen (Tylenol Supp) 650 mg PRN Q6HRS PRN DC MILD PAIN / TEMP Last administered on 04/30/19at 20:38; Start 04/21/19 at 16:45 Enoxaparin Sodium (Lovenox 60mg Syringe) 60 mg Q12HR SQ Last administered on 04/21/19at 20:45; Start 04/21/19 at 21:00; Stop 04/22/19 at 15:40; Status DC Acetaminophen (Tylenol) 650 mg PRN Q6HRS PRN PEG MILD PAIN / TEMP; Start 04/22/19 at 00:15; Status Cancel Sodium Chloride 500 ml @ 0 mls/hr QID PRN IV UO< 30cc/hr over previous 6hrs Last administered on 04/30/19at 22:57; Start 04/22/19 at 12:00 Albumin Human 100 ml @ 100 mls/hr TID IV Last administered on 04/24/19at 08:10; Start 04/22/19 at 14:00; Stop 04/24/19 at 09:59; Status DC Daptomycin 720 mg/ Sodium Chloride 50 ml @ 100 mls/hr ONCE ONCE IV Last administered on 04/22/19at 15:06; Start 04/22/19 at 16:00; Stop 04/22/19 at 16:29; Status DC Daptomycin 760 mg/ Sodium Chloride 50 ml @ 100 mls/hr ONCE ONCE IV Last administered on 04/23/19at 13:02; Start 04/23/19 at 13:00; Stop 04/23/19 at 13:29; Status DC Amino Acids/ Glycerin/ Electrolytes 1,000 ml @ 80 mls/hr [id number] IV Last administered on 04/25/19at 17:31; Start 04/23/19 at 14:00; Stop 04/25/19 at 21:59; Status DC Meropenem 500 mg/ Sodium Chloride 50 ml @ 100 mls/hr Q6HRS IV Last administered on 05/01/19at 05:43; Start 04/25/19 at 12:00 Sodium Bicarbonate (Sodium Bicarb Adult 8.4% Syr) 50 meq 1X ONCE IV Last administered on 04/25/19at 12:19; Start 04/25/19 at 10:45; Stop 04/25/19 at 10:46; Status DC Insulin Human Lispro (HumaLOG) 0-9 UNITS TIDWMEALS SQ Last administered on 04/27/19at 08:59; Start 04/25/19 at 12:00; Stop 04/27/19 at 10:49; Status DC Info (Tpn Per Pharmacy) 1 each PRN DAILY PRN MC SEE COMMENTS Last administered on 04/30/19at 09:51; Start 04/25/19 at 11:15 Potassium Phosphate 15 mmol/ Sodium Chloride 255 ml @ 127.5 mls/ hr 1X ONCE IV Last administered on 04/25/19at 15:06; Start 04/25/19 at 14:00; Stop 04/25/19 at 15:59; Status DC Sodium Chloride 90 meq/Potassium Chloride 50 meq/ Potassium Phosphate 15 mmol/ M agnesium Sulfate 10 meq/Calcium Gluconate 10 meq/ Multivitamins 10 ml/Chromium/ Copper/Manganese/ Seleni/Zn 1 ml/ Insulin Human Regular 10 unit/ Total Parenteral Nutrition/Amino Acids/Dextrose/ Fat Emulsion Intravenous 1,512 ml @ 63 mls/hr TPN CONT IV Last administered on 04/25/19at 23:10; Start 04/25/19 at 22:00; Stop 04/26/19 at 21:59; Status DC Daptomycin 780 mg/ Sodium Chloride 50 ml @ 100 mls/hr Q24H IV Last administered on 04/30/19at 10:08; Start 04/26/19 at 10:00 Micafungin Sodium 100 mg/Dextrose 100 ml @ 100 mls/hr Q24H IV Last administered on 04/30/19at 08:33; Start 04/26/19 at 08:30 Sodium Chloride 1,000 ml @ 1,000 mls/hr 1X ONCE IV Last administered on 04/26/19at 11:13; Start 04/26/19 at 11:00; Stop 04/26/19 at 11:59; Status DC Insulin Human Lispro (HumaLOG) 15 units 1X SQ ; Start 04/26/19 at 12:15; Stop 04/26/19 at 13:18; Status DC Insulin Human Lispro (HumaLOG) 15 units 1X ONCE SQ Last administered on 04/26/19at 13:30; Start 04/26/19 at 13:30; Stop 04/26/19 at 13:31; Status DC Sodium Acetate 90 meq/Sodium Phosphate 10 mmol/ Potassium Chloride 50 meq/ Potassium Phosphate 15 mmol/ Magnesium Sulfate 10 meq/Calcium Gluconate 10 meq/ Multivitamins 10 ml/Chromium/ Copper/Manganese/ Seleni/Zn 1 ml/ Insulin Human Regular 20 unit/ Total Parenteral Nutrition/Amino Acids/Dextro... 1,512 ml @ 63 mls/hr TPN CONT IV Last administered on 04/26/19at 22:12; Start 04/26/19 at 2 2:00; Stop 04/27/19 at 21:59; Status DC Sodium Phosphate 30 mmol/Dextrose 260 ml @ 65 mls/hr 1X ONCE IV Last administered on 04/26/19at 15:11; Start 04/26/19 at 15:00; Stop 04/26/19 at 18:59; Status DC Insulin Human Lispro (HumaLOG) 20 units 1X ONCE SQ Last administered on 04/27/19at 02:38; Start 04/27/19 at 02:30; Stop 04/27/19 at 02:31; Status DC Sodium Bicarbonate (Sodium Bicarb Adult 8.4% Syr) 50 meq 1X ONCE IV Last administered on 04/27/19at 10:16; Start 04/27/19 at 10:15; Stop 04/27/19 at 10:16 ; Status DC Insulin Human Lispro (HumaLOG) 0-9 UNITS Q4HRS SQ Last administered on 05/01/19at 04:06; Start 04/27/19 at 12:00 Insulin Glargine (Lantus Syringe) 20 unit QHS SQ Last administered on 04/30/19at 20:38; Start 04/27/19 at 21:00 Potassium Phosphate 13.6 mmol/Dextrose 104.5333 ml @ 52.267 m... ONCE ONCE IV Last administered on 04/27/19at 13:09; Start 04/27/19 at 13:00; Stop 04/27/19 at 14:59; Status DC Insulin Human Lispro (HumaLOG) 20 units 1X ONCE SQ Last administered on 04/27/19at 11:53; Start 04/27/19 at 11:45; Stop 04/27/19 at 11:46; Status DC Sodium Acetate 70 meq/Sodium Phosphate 10 mmol/ Potassium Chloride 30 meq/ Potassium Phosphate 18 mmol/ Magnesium Sulfate 10 meq/ Multivitamins 10 ml/Chromium/ Copper/Manganese/ Seleni/Zn 1 ml/ Insulin Human Regular 20 unit/ Total Parenteral Nutrition/Amino Acids/Dextrose/ Fat Emuls... 1,512 ml @ 63 mls/hr TPN CONT IV Last administered on 04/27/19at 21:13; Start 04/27/19 at 22:00; Stop 04/28/19 at 21:59; Status DC Linezolid/Dextrose 300 ml @ 300 mls/hr Q12HR IV Last administered on 04/30/19at 20:38; Start 04/28/19 at 09:00 Sodium Acetate 70 meq/Sodium Phosphate 10 mmol/ Potassium Phosphate 18 mmol/ Magnesium Sulfate 10 meq/ Multivitamins 10 ml/Chromium/ Copper/Manganese/ Seleni/Zn 1 ml/ Insulin Human Regular 20 unit/ Potassium Acetate 30 meq/Total Parenteral Nutrition/Amino Acids/Dextrose/ Fat Emuls... 1,560 ml @ 65 mls/hr TPN CONT IV Last administered on 04/28/19at 21:12; Start 04/28/19 at 22:00; Stop 04/29/19 at 21:59; Status DC Sodium Acetate 30 meq/Sodium Phosphate 10 mmol/ Potassium Phosphate 18 mmol/ Magnesium Sulfate 10 meq/ Multivitamins 10 ml/Chromium/ Copper/Manganese/ Seleni/Zn 1 ml/ Insulin Human Regular 20 unit/ Total Parenteral Nutrition/Amino Acids/Dextrose/ Fat Emulsion Intravenous 1,560 ml @ 65 mls/hr TPN CONT IV Last administered on 04/29/19at 22:04; Start 04/29/19 at 22:00; Stop 04/30/19 at 21:59; Status DC Sodium Acetate 10 meq/Sodium Phosphate 10 mmol/ Potassium Phosphate 18 mmol/ Magnesium Sulfate 10 meq/ Multivitamins 10 ml/Chromium/ Copper/Manganese/ Seleni/Zn 1 ml/ Insulin Human Regular 20 unit/ Total Parenteral Nutrition/Amino Acids/Dextrose/ Fat Emulsion Intravenous 1,560 ml @ 65 mls/hr TPN CONT IV Last administered on 04/30/19at 21:57; Start 04/30/19 at 22:00; Stop 05/01/19 at 21:59 Active Scripts Active Reported No Known Medications Prior To Admisstion (Info) Each 1 Each 1X Vitals/I & O Vital Sign - Last 24 Hours 04/30/19 04/30/19 04/30/19 04/30/19 10:00 11:00 11:31 12:00 Pulse 84 88 Resp 23 23 B/P (MAP) 116/70 (85) 118/67 (84) Pulse Ox 98 99 99 O2 Delivery Ventilator Ventilator Ventilator Mechanical Ventilator 04/30/19 04/30/19 04/30/19 04/30/19 12:00 12:29 13:00 14:00 Temp 99.9 99.9 Pulse 88 86 92 Resp 23 23 23 B/P (MAP) 144/70 (94) 118/77 (91) 124/55 (78) Pulse Ox 99 99 99 99 O2 Delivery Ventilator Ventilator Ventilator Ventilator 04/30/19 04/30/19 04/30/19 04/30/19 15:00 15:14 15:39 16:00 Temp 99.0 99.0 Pulse 100 87 Resp 23 44 B/P (MAP) 103/71 (82) 104/62 (76) Pulse Ox 99 99 99 100 O2 Delivery Ventilator Ventilator Ventilator O2 Flow Rate 98.0 04/30/19 04/30/19 04/30/19 04/30/19 16:00 16:52 17:00 18:00 Pulse 81 82 Resp 22 24 B/P (MAP) 131/64 (86) 127/67 (87) Pulse Ox 100 100 99 O2 Delivery Mechanical Ventilator Ventilator Ventilator O2 Flow Rate 98.0 04/30/19 04/30/19 04/30/19 04/30/19 18:09 19:00 20:00 20:00 Temp 101.7 101.7 Pulse 81 84 94 Resp 22 22 B/P (MAP) 131/64 99/67 (78) 99/59 (72) Pulse Ox 100 100 O2 Delivery Ventilator Ventilator Mechanical Ventilator 04/30/19 04/30/19 04/30/19 04/30/19 20:45 21:00 22:00 22:00 Pulse 91 86 Resp 22 24 B/P (MAP) 108/69 (82) 80/54 (63) Pulse Ox 100 100 99 100 O2 Delivery Ventilator Ventilator Ventilator Ventilator 04/30/19 04/30/19 04/30/19 04/30/19 22:30 23:00 23:59 23:59 Temp 99.7 99.7 Pulse 88 78 88 Resp 22 24 24 B/P (MAP) 91/54 (66) 118/62 (80) 113/82 (92) Pulse Ox 100 100 100 O2 Delivery Ventilator Ventilator Ventilator Mechanical Ventilator 05/01/19 05/01/19 05/01/19 05/01/19 00:09 00:38 01:00 01:23 Pulse 88 84 Resp 22 B/P (MAP) 113/82 87/73 (78) Pulse Ox 100 100 100 O2 Delivery Ventilator Ventilator 05/01/19 05/01/19 05/01/19 05/01/19 01:30 02:00 02:14 03:00 Temp 99.8 99.8 Pulse 80 82 78 Resp 24 B/P (MAP) 95/61 (72) 94/53 (67) 98/57 (71) Pulse Ox 100 99 100 100 O2 Delivery Ventilator Ventilator Ventilator Ventilator 05/01/19 05/01/19 05/01/19 05/01/19 04:00 04:00 05:00 05:13 Pulse 89 83 Resp 24 B/P (MAP) 116/65 (82) 93/61 (72) Pulse Ox 100 100 100 O2 Delivery Ventilator Mechanical Ventilator Ventilator Ventilator 05/01/19 05/01/19 05/01/19 05/01/19 05:42 05:43 06:00 07:00 Pulse 82 97 82 Resp 24 24 24 B/P (MAP) 102/59 139/82 (101) 87/52 (64) Pulse Ox 100 100 100 O2 Delivery Ventilator Ventilator Ventilator 05/01/19 05/01/19 07:15 08:06 Pulse 92 Resp 24 B/P (MAP) 93/55 (68) Pulse Ox 100 100 O2 Delivery Ventilator Ventilator Intake and Output 04/30/19 04/30/19 05/01/19 14:59 22:59 06:59 Intake Total 2489 ml 1049 ml Output Total 280 ml 640 ml 310 ml Balance -280 ml 1849 ml 739 ml KETURAH ROMERO MD May 01, 2019 09:28
[2019-05-01] MEDS: DAPTOMYCIN IV SCH (10:22)
[2019-05-01] MEDS: NORMAL SALINE IV SCH (10:22)
[2019-05-01] MEDS: AMMONIUM LACTATE 12% TOPICAL LOTION 226GM BOTTLE. TP SCH (10:32)
[2019-05-01] MEDS: MICAFUNGIN 100 MG in IV DEXTROSE 5% 100ML 100 ML IV SCH (10:32)
[2019-05-01] MEDS: PANTOPRAZOLE IV PUSH 40 MG VIAL. IVP SCH (10:45)
--- NOTE | 2019-05-01 12:04 | PDOC ---
PULMONARY PROGRESS NOTES Subjective on vent, on peep 5, fio2 40%, sedated ,on levo nursing reports minimal secretions, no reported asynchrony Vitals Vital Signs Date Time Temp Pulse Resp B/P (MAP) Pulse Ox O2 Delivery O2 Flow Rate FiO2 05/01/19 12:02 100 98.0 05/01/19 11:00 84 24 123/78 (93) Ventilator 05/01/19 08:00 100.0 100.0 Comments unable to obtain 2/2 intubation/sedation Lungs: Other (deminished in BLL) Cardiovascular: S1, S2 Abdomen: Other (obese, distended ) Extremities: Other (lymphedema in BLE ) Skin: Warm, Dry Labs Laboratory Tests Test 04/29/19 16:43 04/29/19 20:27 04/29/19 23:42 04/30/19 04:14 Glucose (Fingerstick) 212 mg/dL (70-99) 202 mg/dL (70-99) 214 mg/dL (70-99) 190 mg/dL (70-99) Test 04/30/19 05:45 04/30/19 07:15 04/30/19 15:33 04/30/19 18:04 White Blood Count 25.2 x10^3/uL (4.0-11.0) Red Blood Count 4.39 x10^6/uL (3.50-5.40) Hemoglobin 9.9 g/dL (12.0-15.5) Hematocrit 32.6 % (36.0-47.0) Mean Corpuscular Volume 74 fL (79-100) Mean Corpuscular Hemoglobin 23 pg (25-35) Mean Corpuscular Hemoglobin Concent 30 g/dL (31-37) Red Cell Distribution Width 18.8 % (11.5-14.5) Platelet Count 99 x10^3/uL (140-400) Neutrophils (%) (Auto) 92 % (31-73) Lymphocytes (%) (Auto) 4 % (24-48) Monocytes (%) (Auto) 4 % (0-9) Eosinophils (%) (Auto) 0 % (0-3) Basophils (%) (Auto) 0 % (0-3) Neutrophils # (Auto) 23.2 x10^3/uL (1.8-7.7) Lymphocytes # (Auto) 1.0 x10^3/uL (1.0-4.8) Monocytes # (Auto) 0.9 x10^3/uL (0.0-1.1) Eosinophils # (Auto) 0.1 x10^3/uL (0.0-0.7) Basophils # (Auto) 0.1 x10^3/uL (0.0-0.2) Sodium Level 148 mmol/L (136-145) Potassium Level 4.7 mmol/L (3.5-5.1) Chloride Level 112 mmol/L (98-107) Carbon Dioxide Level 23 mmol/L (21-32) Anion Gap 13 (6-14) Blood Urea Nitrogen 83 mg/dL (7-20) Creatinine 1.1 mg/dL (0.6-1.0) Estimated GFR (Cockcroft-Gault) 50.0 Glucose Level 190 mg/dL (70-99) Calcium Level 8.5 mg/dL (8.5-10.1) O2 Saturation 94 % (92-99) Arterial Blood pH 7.42 (7.35-7.45) Arterial Blood pCO2 at Patient Temp 30 mmHg (35-46) Arterial Blood pO2 at Patient Temp 71 mmHg (65-108) Arterial Blood HCO3 19 mmol/L (21-28) Arterial Blood Base Excess -5 mmol/L (-3-3) FiO2 35 Glucose (Fingerstick) 250 mg/dL (70-99) 262 mg/dL (70-99) Test 04/30/19 20:11 04/30/19 20:55 04/30/19 23:48 05/01/19 04:03 Glucose (Fingerstick) 203 mg/dL (70-99) 213 mg/dL (70-99) 180 mg/dL (70-99) Urine Collection Type Unknown Urine Color Yani Urine Clarity Cloudy Urine pH 5.0 Urine Specific [place] 1.020 Urine Protein Negative mg/dL (NEG-TRACE) Urine Glucose (UA) Negative mg/dL (NEG) Urine Ketones (Stick) Negative mg/dL (NEG) Urine Blood Large (NEG) Urine Nitrite Negative (NEG) Urine Bilirubin Small (NEG) Urine Urobilinogen Dipstick 1.0 mg/dL (0.2 mg/dL) Urine Leukocyte Esterase Moderate (NEG) Urine RBC >40 /HPF (0-2) Urine WBC 11-20 /HPF (0-4) Urine Amorphous Sediment Present /HPF Urine Bacteria Few /HPF (0-FEW) Urine Hyaline Casts Moderate /HPF Urine Mucus Mod /LPF Test 05/01/19 05:50 White Blood Count 25.8 x10^3/uL (4.0-11.0) Red Blood Count 4.39 x10^6/uL (3.50-5.40) Hemoglobin 9.9 g/dL (12.0-15.5) Hematocrit 32.7 % (36.0-47.0) Mean Corpuscular Volume 75 fL (79-100) Mean Corpuscular Hemoglobin 23 pg (25-35) Mean Corpuscular Hemoglobin Concent 30 g/dL (31-37) Red Cell Distribution Width 19.1 % (11.5-14.5) Platelet Count 114 x10^3/uL (140-400) Neutrophils (%) (Auto) 90 % (31-73) Lymphocytes (%) (Auto) 4 % (24-48) Monocytes (%) (Auto) 4 % (0-9) Eosinophils (%) (Auto) 1 % (0-3) Basophils (%) (Auto) 1 % (0-3) Neutrophils # (Auto) 23.2 x10^3/uL (1.8-7.7) Lymphocytes # (Auto) 1.1 x10^3/uL (1.0-4.8) Monocytes # (Auto) 1.1 x10^3/uL (0.0-1.1) Eosinophils # (Auto) 0.1 x10^3/uL (0.0-0.7) Basophils # (Auto) 0.2 x10^3/uL (0.0-0.2) Segmented Neutrophils % 91 % (35-66) Lymphocytes % 8 % (24-48) Monocytes % 1 % (0-10) Platelet Estimate Decreased (ADEQUATE) Hypochromasia Mod Anisocytosis Slight Macrocytosis Slight Sodium Level 145 mmol/L (136-145) Potassium Level 4.8 mmol/L (3.5-5.1) Chloride Level 113 mmol/L (98-107) Carbon Dioxide Level 22 mmol/L (21-32) Anion Gap 10 (6-14) Blood Urea Nitrogen 94 mg/dL (7-20) Creatinine 1.2 mg/dL (0.6-1.0) Estimated GFR (Cockcroft-Gault) 45.2 Glucose Level 191 mg/dL (70-99) Calcium Level 8.7 mg/dL (8.5-10.1) Laboratory Tests Test 04/30/19 15:33 04/30/19 18:04 04/30/19 20:11 04/30/19 20:55 Glucose (Fingerstick) 250 mg/dL (70-99) 262 mg/dL (70-99) 203 mg/dL (70-99) Urine Collection Type Unknown Urine Color Yani Urine Clarity Cloudy Urine pH 5.0 Urine Specific [place] 1.020 Urine Protein Negative mg/dL (NEG-TRACE) Urine Glucose (UA) Negative mg/dL (NEG) Urine Ketones (Stick) Negative mg/dL (NEG) Urine Blood Large (NEG) Urine Nitrite Negative (NEG) Urine Bilirubin Small (NEG) Urine Urobilinogen Dipstick 1.0 mg/dL (0.2 mg/dL) Urine Leukocyte Esterase Moderate (NEG) Urine RBC >40 /HPF (0-2) Urine WBC 11-20 /HPF (0-4) Urine Amorphous Sediment Present /HPF Urine Bacteria Few /HPF (0-FEW) Urine Hyaline Casts Moderate /HPF Urine Mucus Mod /LPF Test 04/30/19 23:48 05/01/19 04:03 05/01/19 05:50 Glucose (Fingerstick) 213 mg/dL (70-99) 180 mg/dL (70-99) White Blood Count 25.8 x10^3/uL (4.0-11.0) Red Blood Count 4.39 x10^6/uL (3.50-5.40) Hemoglobin 9.9 g/dL (12.0-15.5) Hematocrit 32.7 % (36.0-47.0) Mean Corpuscular Volume 75 fL (79-100) Mean Corpuscular Hemoglobin 23 pg (25-35) Mean Corpuscular Hemoglobin Concent 30 g/dL (31-37) Red Cell Distribution Width 19.1 % (11.5-14.5) Platelet Count 114 x10^3/uL (140-400) Neutrophils (%) (Auto) 90 % (31-73) Lymphocytes (%) (Auto) 4 % (24-48) Monocytes (%) (Auto) 4 % (0-9) Eosinophils (%) (Auto) 1 % (0-3) Basophils (%) (Auto) 1 % (0-3) Neutrophils # (Auto) 23.2 x10^3/uL (1.8-7.7) Lymphocytes # (Auto) 1.1 x10^3/uL (1.0-4.8) Monocytes # (Auto) 1.1 x10^3/uL (0.0-1.1) Eosinophils # (Auto) 0.1 x10^3/uL (0.0-0.7) Basophils # (Auto) 0.2 x10^3/uL (0.0-0.2) Segmented Neutrophils % 91 % (35-66) Lymphocytes % 8 % (24-48) Monocytes % 1 % (0-10) Platelet Estimate Decreased (ADEQUATE) Hypochromasia Mod Anisocytosis Slight Macrocytosis Slight Sodium Level 145 mmol/L (136-145) Potassium Level 4.8 mmol/L (3.5-5.1) Chloride Level 113 mmol/L (98-107) Carbon Dioxide Level 22 mmol/L (21-32) Anion Gap 10 (6-14) Blood Urea Nitrogen 94 mg/dL (7-20) Creatinine 1.2 mg/dL (0.6-1.0) Estimated GFR (Cockcroft-Gault) 45.2 Glucose Level 191 mg/dL (70-99) Calcium Level 8.7 mg/dL (8.5-10.1) Medications Active Scripts Medications Dose Route/Sig Max Daily Dose Days Date Category No Known Medications Prior To Admisstion (Info) Each 1 Each 1X 04/20/[address] abdomen Limited exam due to lack of IV contrast. 1. Bilateral lung bases consolidations, left more than right may be secondary to atelectasis or pneumonia. 2. Cirrhosis with evidence of portal venous hypertension. Stable small volume ascites. 3. Umbilical hernia containing focal loop of small bowel with resolution of previously seen dilated bowel loops. No imaging evidence of high-grade bowel obstruction. 4. Enlarged retroperitoneal and inguinal lymph nodes concerning for lymphoma or metastasis. 5. Omental nodularity suggests a metastasis or pneumatosis. 6. Left adnexal masslike lesion may be of ovarian origin or pedunculated fibroid. Nonemergent MRI of the pelvis with IV contrast recommended. Electronically signed by: Miguel Hampton DO (04/26/2019 1:19 PM) [facility] Impression . 1. Acute hypercapnic respiratory failure secondary to multifactorial etiologies hypovolemic and septic shock., now with recurrent fever, lactic acidosis 2. bilateral infiltrates, likely related to aspiration pneumonia. 3. Acute kidney injury secondary to hypotension and shock. 4. Small bowel obstruction. She has been seen by Surgery and not a surgical candidate. Over 2 liters of fluid came out from her orogastric tube upon insertion. 5. Chronic lymphedema of the lower extremities. 6. Leukocytosis. 7. Moderate protein-calorie malnutrition. 8. fever, 9. bacteremia, gram +cocci, recent MSSA bacteremia, 10. Abnormal ct abdomen with suspected lymphoma vs malignancy Plan . 1. Continue vent support, continue sedation 2. Broad-spectrum antibiotic per Infectious Disease recommendations. Merm/Dapto/Margarita 3. Follow all cultures, 4. Renal consultation / rec. 5. Follow Surgery recommendations. 6. Follow GI recommendations. 7. DVT and stress ulcer prophylaxis. 8. Prognosis appears to be grim. I had a long discussion with 04/27. explained multiple organ involvement and abnormal ct abd findings. He understands and agrees for comfort care.plan for withdraw of care today TYE MADRIGAL MD May 01, 2019 12:04
[2019-05-01] MEDS: TPN PER PHARMACY MC PRN (13:01)
--- NOTE | 2019-05-01 13:04 | PDOC ---
Objective: Objective: D/w nurse - might be here later this afternoon, plans to withdraw care. Vital Signs: Vital Signs Date Time Temp Pulse Resp B/P (MAP) Pulse Ox O2 Delivery O2 Flow Rate FiO2 05/01/19 12:42 100 Ventilator 05/01/19 12:03 100.8 87 24 93/62 (72) 100.8 05/01/19 12:02 98.0 Labs: Laboratory Tests Test 04/30/19 15:33 04/30/19 18:04 04/30/19 20:11 04/30/19 20:55 Glucose (Fingerstick) 250 mg/dL 262 mg/dL 203 mg/dL Urine Collection Type Unknown Urine Color Yani Urine Clarity Cloudy Urine pH 5.0 Urine Specific [place] 1.020 Urine Protein Negative mg/dL Urine Glucose (UA) Negative mg/dL Urine Ketones (Stick) Negative mg/dL Urine Blood Large Urine Nitrite Negative Urine Bilirubin Small Urine Urobilinogen Dipstick 1.0 mg/dL Urine Leukocyte Esterase Moderate Urine RBC >40 /HPF Urine WBC 11-20 /HPF Urine Amorphous Sediment Present /HPF Urine Bacteria Few /HPF Urine Hyaline Casts Moderate /HPF Urine Mucus Mod /LPF Test 04/30/19 23:48 05/01/19 04:03 05/01/19 05:50 Glucose (Fingerstick) 213 mg/dL 180 mg/dL White Blood Count 25.8 x10^3/uL Red Blood Count 4.39 x10^6/uL Hemoglobin 9.9 g/dL Hematocrit 32.7 % Mean Corpuscular Volume 75 fL Mean Corpuscular Hemoglobin 23 pg Mean Corpuscular Hemoglobin Concent 30 g/dL Red Cell Distribution Width 19.1 % Platelet Count 114 x10^3/uL Neutrophils (%) (Auto) 90 % Lymphocytes (%) (Auto) 4 % Monocytes (%) (Auto) 4 % Eosinophils (%) (Auto) 1 % Basophils (%) (Auto) 1 % Neutrophils # (Auto) 23.2 x10^3/uL Lymphocytes # (Auto) 1.1 x10^3/uL Monocytes # (Auto) 1.1 x10^3/uL Eosinophils # (Auto) 0.1 x10^3/uL Basophils # (Auto) 0.2 x10^3/uL Segmented Neutrophils % 91 % Lymphocytes % 8 % Monocytes % 1 % Platelet Estimate Decreased Hypochromasia Mod Anisocytosis Slight Macrocytosis Slight Sodium Level 145 mmol/L Potassium Level 4.8 mmol/L Chloride Level 113 mmol/L Carbon Dioxide Level 22 mmol/L Anion Gap 10 Blood Urea Nitrogen 94 mg/dL Creatinine 1.2 mg/dL Estimated GFR (Cockcroft-Gault) 45.2 Glucose Level 191 mg/dL Calcium Level 8.7 mg/dL PE: GEN: Nintubated LUNGS: vent ABD: quiet, some firmness NEURO/PSYCH: sedated A/P: Left adnexal mass, lymphadenopathy cirrhosis/portal hypertension, SBO/umbilical hernia -- Note plan to withdraw care today. GI will sign off. DESHAWN SALEH May 01, 2019 13:04
--- NOTE | 2019-05-01 13:16 | PDOC2 ---
PALLIATIVE CARE Palliative Care Note Palliative Care Patient remains intubated. On Levophed. Sedation, Fentanyl. Spoke with Pierre, . He plan to be here between 3 and 4 pm. Not sure if Viry daughter will be here. Plan is to change to comfort care and allow natural . [address] [place] and Adriana here. Reviewed plan to remove ET, stop those medications that are not adding to her comfort including pressor. Pierre agrees with plan. Premedicated as ordered. 1648 Extubated. per RT. Spontaneous respirations 38-42/min. HR 104 Family at bedside. 1715 Medicated with Ativan, and Fentanyl for increased respiratory effort. HR 162 Robinul for secretion control. Family at bedside and appreciative of care. 1729 Patient with no spontaneous respirations or heart beat Family here. JOSÉ ANTONIO YEUNG May 01, 2019 13:16
--- NOTE | 2019-05-01 13:38 | PDOC ---
[employer] PROGRESS NOTE Chief Complaint Chief Complaint Acute hypercapnic respiratory failure/ARDS Likely aspiration pneumonia Bilateral lung infiltrates RADHA SBO Chronic lymphedema of lower extremities Leukocytosis Protein/Calorie Malnutrition Bacteremia History of Present Illness History of Present Illness 05/01/19 Pt seen/examined in the ICU Pt is still currently on vent (AC/20/500/35% PEEP) Pt currently still sedated Pt on TPN 04/30/19 Pt seen/examined in the ICU Pt is still currently on vent (vent setings: AC/20/500/ 35% 5PEEP) Pt sating at 99% O2 Pt is currently still sedated Chart and labs reviewed DW RN 04/29/19 Pt seen/examined in the ICU Pt still currently on vent (Vent settings: AC/20/500/35% 5PEEP) Pt is sating at 97% Still on TPN and sedated 9�13�2019 Patient seen and examined She is still on the vent appears very ill critically ill Discussed with RN Vent settings AC/20/500/35% 5 PEEP On TPN Sedated 04/27/19 Pt seen/examined in the ICU and currently on vent (vent settings: AC/20/500/35% 5PEEP) Dawn to BSD Pt still has ET tube, OG tube to LIS Sedated with fentanyl SPIRITUAL ADVISOR and precedex Glucose currently at 376 DW RN Sating at 100% 04/26/19 Pt seen and examined in ICU on vent (vent settings: AC/20/500/35% 5PEEP) pH 7.4 Dawn to BSD in place Pt still has ET tube; OG tube to LIS Sedated with fentanyl SPIRITUAL ADVISOR and precedex DW RN RN taking pt for CT of abdomen Had fever overnight; given NS 1000 cc bolus Glucose taken by RN; Current glucose: 369 Currently sat-ing at 99% Chart reviewed 04/25/19 Pt seen and examined in ICU on vent (vent settings: AC/20/500/40% Peep16) Pt has ET tube and OG tube to LIS Pt has dawn to BSD Sedated with precedex and fentanyl SPIRITUAL ADVISOR STANLEY RN DW disease case manager chart reviewed Vitals/I&O Vitals/I&O: Vital Signs Date Time Temp Pulse Resp B/P (MAP) Pulse Ox O2 Delivery O2 Flow Rate FiO2 05/01/19 12:42 100 Ventilator 05/01/19 12:03 100.8 87 24 93/62 (72) 100.8 9/16/19 12:02 98.0 I & O 04/30/19 04/30/19 05/01/19 15:00 23:00 07:00 Intake Total 2489 ml 1049 ml Output Total 295 ml 630 ml 320 ml Balance -295 ml 1859 ml 729 ml Physical Exam Physical Exam: GENERAL: Orally intubated, sedated, mitts HEENT: Pupils equal, small. ETT/ OGT with green colored output NECK: Supple LUNGS: dec bs at bases HEART: S1, S2 ,no murmurs ABDOMEN: Soft, Umbilical hernia present. Large pannus present. EXTREMITIES: Both lower extremities have venous insufficiency, stasis dermatitis on both the legs posteriorly. Trace edema SKIN: Warm to touch. sacral wound NEUROLOGIC: Sedated on vent PICC line (04/28) General: No acute distress Heart: Regular rate Lungs: Other (deminished in BLL) Abdomen: Soft, Other (hernia, non reducible) Extremities: Other (extensive lymphedema) Skin: No rashes, No significant lesion Labs Labs: Laboratory Tests Test 04/30/19 15:33 04/30/19 18:04 04/30/19 20:11 04/30/19 20:55 Glucose (Fingerstick) 250 mg/dL (70-99) 262 mg/dL (70-99) 203 mg/dL (70-99) Urine Collection Type Unknown Urine Color Yani Urine Clarity Cloudy Urine pH 5.0 Urine Specific [place] 1.020 Urine Protein Negative mg/dL (NEG-TRACE) Urine Glucose (UA) Negative mg/dL (NEG) Urine Ketones (Stick) Negative mg/dL (NEG) Urine Blood Large (NEG) Urine Nitrite Negative (NEG) Urine Bilirubin Small (NEG) Urine Urobilinogen Dipstick 1.0 mg/dL (0.2 mg/dL) Urine Leukocyte Esterase Moderate (NEG) Urine RBC >40 /HPF (0-2) Urine WBC 11-20 /HPF (0-4) Urine Amorphous Sediment Present /HPF Urine Bacteria Few /HPF (0-FEW) Urine Hyaline Casts Moderate /HPF Urine Mucus Mod /LPF Test 04/30/19 23:48 05/01/19 04:03 05/01/19 05:50 Glucose (Fingerstick) 213 mg/dL (70-99) 180 mg/dL (70-99) White Blood Count 25.8 x10^3/uL (4.0-11.0) Red Blood Count 4.39 x10^6/uL (3.50-5.40) Hemoglobin 9.9 g/dL (12.0-15.5) Hematocrit 32.7 % (36.0-47.0) Mean Corpuscular Volume 75 fL (79-100) Mean Corpuscular Hemoglobin 23 pg (25-35) Mean Corpuscular Hemoglobin Concent 30 g/dL (31-37) Red Cell Distribution Width 19.1 % (11.5-14.5) Platelet Count 114 x10^3/uL (140-400) Neutrophils (%) (Auto) 90 % (31-73) Lymphocytes (%) (Auto) 4 % (24-48) Monocytes (%) (Auto) 4 % (0-9) Eosinophils (%) (Auto) 1 % (0-3) Basophils (%) (Auto) 1 % (0-3) Neutrophils # (Auto) 23.2 x10^3/uL (1.8-7.7) Lymphocytes # (Auto) 1.1 x10^3/uL (1.0-4.8) Monocytes # (Auto) 1.1 x10^3/uL (0.0-1.1) Eosinophils # (Auto) 0.1 x10^3/uL (0.0-0.7) Basophils # (Auto) 0.2 x10^3/uL (0.0-0.2) Segmented Neutrophils % 91 % (35-66) Lymphocytes % 8 % (24-48) Monocytes % 1 % (0-10) Platelet Estimate Decreased (ADEQUATE) Hypochromasia Mod Anisocytosis Slight Macrocytosis Slight Sodium Level 145 mmol/L (136-145) Potassium Level 4.8 mmol/L (3.5-5.1) Chloride Level 113 mmol/L (98-107) Carbon Dioxide Level 22 mmol/L (21-32) Anion Gap 10 (6-14) Blood Urea Nitrogen 94 mg/dL (7-20) Creatinine 1.2 mg/dL (0.6-1.0) Estimated GFR (Cockcroft-Gault) 45.2 Glucose Level 191 mg/dL (70-99) Calcium Level 8.7 mg/dL (8.5-10.1) Review of Systems Review of Systems: Unable to obtain; patient is sedated Assessment and Plan Assessmemt and Plan Problems Medical Problems: (1) Diabetes Status: Acute (2) Fall Status: Acute (3) Severe sepsis Status: Acute (4) UTI (urinary tract infection) Status: Acute (5) Weakness Status: Acute Acute hypercapnic respiratory failure/ARDS Likely aspiration pneumonia Bilateral lung infiltrates RADHA SBO Diabetes Mellitus Chronic lymphedema of lower extremities Leukocytosis Protein/Calorie Malnutrition Bacteremia Plan Continue ICU monitoring Continue Vent weaning Continue sedation with precedex and fentanyl SPIRITUAL ADVISOR Continue IV antibiotics Maintain OG to LIS sliding scale insulin Q4 20 Lantus Sub q24 hrs Accucheck Q4hr Dawn to BSD Prognosis poor Trend labs Full Code DVT prophylaxis PICC line TPN Appreciate subspecialty input Total time 33 min Comment Review of Relevant I have reviewed the following items ashok (where applicable) has been applied. Medications: Current Medications Medications (Trade) Dose Ordered Sig/[place] Route PRN Reason Start Time Stop Time Status Last Admin Dose Admin Sodium Acetate 10 meq/Sodium Phosphate 10 mmol/ Potassium Phosphate 18 mmol/ Magnesium Sulfate 10 meq/ Multivitamins 10 ml/Chromium/ Copper/Manganese/ Seleni/Zn 1 ml/ Insulin Human Regular 20 unit/ Total Parenteral Nutrition/Amino Acids/Dextrose/ Fat Emulsion Intravenous 1,560 ml @ 65 mls/hr TPN CONT IV 04/30/19 22:00 05/01/19 21:59 04/30/19 21:57 CHRIS PHILLIPS III DO May 01, 2019 13:38
--- NOTE | 2019-05-01 16:35 | NUR ---
Periods of wakefulness(opens eyes. BP labile at times w levo titrated slightly as needed till late afternoon when at bedside. Premedicated per comfort care 15 min prior to extubation.- 1615. RT informed of order. Allo antibiotics,nutrition,and Rx stopped at this time. Extubated 1644,family at bedside. Brief period air hunger w bolus of fent that was helpful.
[2019-05-01] MEDS ORDERED: GLYCOPYRROLATE 1 MG/5 ML VIAL. IV ONE (17:15)
--- NOTE | 2019-05-01 18:00 | NUR ---
Not a donor candidate. To [facility] [place] [facility] aware of family request for their care
--- NOTE | 2019-05-01 18:08 | NUR ---
[facility] called with time of . Patient is not a tissue or organ donor. Patient is being screened for possible eye donation. Awaiting call from [facility] to determine donor status. [facility] requested not to release body to home until patient is ruled out for possible eye donation.
[2019-05-01] MEDS ORDERED: DEXTROSE 70% IV SCH ×10 (22:00)
[2019-05-01] MEDS ORDERED: TOTAL PARENTERAL NUTRITION IV SCH ×10 (22:00)
[2019-05-01] MEDS ORDERED: AMINO ACID IV SCH ×10 (22:00)
[2019-05-01] MEDS ORDERED: [UNRECOGNIZED DRUG - OTHER] IV SCH ×10 (22:00)
--- NOTE | 2019-05-01 22:10 | DS ---
DATE OF DISCHARGE: 05/01/2019 SUMMARY ADMISSION DIAGNOSES: 1. Urinary tract infection. 2. Weakness. 3. Severe sepsis. CAUSE OF : Multiorgan failure. HOSPITAL COURSE: The patient was a pleasant elderly female who basically was failing to thrive at home, but she really did not want to come to the hospital or go to a care home. She finally was brought in and was in quite bad shape. Her skin was very dry and peeling off of her legs. She was quite large and swollen. She has been stuck in bed. She states her was trying to take care of her, but he was ill as well. We admitted the patient, started some antibiotics and fluids. Then, she developed fulminant respiratory failure. She ended up on the vent. Over the past week or so, we had not been able to extubate her successfully. Today, the family and the palliative care team spoke, they chose comfort care, the patient . CHRIS PHILLIPS DO DR: SHARLA/jonnathan JOB#: [id number] / [id number]
== END 2019-05-01 17:29 | disposition expired | DRG 870 ==
LOC: ER 17:48 → 6 SOUTH 19:00 → 1 WEST ICU 04-20 16:38
PROVIDERS: ADMIT Family Medicine; ATTEND Family Medicine
PROC: 02HV33Z Insertion of Infusion Device into Superior Vena Cava, Percutaneous Approach (ICD-10-PCS; principal; 2019-04-20)
PROC: 5A1955Z Respiratory Ventilation, Greater than 96 Consecutive Hours (ICD-10-PCS; 2019-04-20)
PROC: 0BH17EZ Insertion of Endotracheal Airway into Trachea, Via Natural or Artificial Opening (ICD-10-PCS; 2019-04-20)
PROC: B548ZZA Ultrasonography of Superior Vena Cava, Guidance (ICD-10-PCS; 2019-04-28)
DX: A41.9 Sepsis, unspecified organism (principal); E43 Unspecified severe protein-calorie malnutrition; J69.0 Pneumonitis due to inhalation of food and vomit; J96.02 Acute respiratory failure with hypercapnia; N17.0 Acute kidney failure with tubular necrosis; R65.21 Severe sepsis with septic shock; N39.0 Urinary tract infection, site not specified; D68.9 Coagulation defect, unspecified; E87.1 Hypo-osmolality and hyponatremia; J90 Pleural effusion, not elsewhere classified; K42.0 Umbilical hernia with obstruction, without gangrene; K76.6 Portal hypertension; K92.2 Gastrointestinal hemorrhage, unspecified; R18.8 Other ascites; Z68.43 Body mass index [BMI] 50.0-59.9, adult; W18.39XA Other fall on same level, initial encounter; Y93.89 Activity, other specified; Y92.89 Other specified places as the place of occurrence of the external cause; Y99.8 Other external cause status; B35.1 Tinea unguium; D50.9 Iron deficiency anemia, unspecified; D69.6 Thrombocytopenia, unspecified; E11.9 Type 2 diabetes mellitus without complications; E66.01 Morbid (severe) obesity due to excess calories; E86.0 Dehydration; E86.1 Hypovolemia; E87.6 Hypokalemia; I10 Essential (primary) hypertension; I87.8 Other specified disorders of veins; K21.9 Gastro-esophageal reflux disease without esophagitis; K43.2 Incisional hernia without obstruction or gangrene; K74.60 Unspecified cirrhosis of liver; K82.8 Other specified diseases of gallbladder; L89.159 Pressure ulcer of sacral region, unspecified stage; R31.0 Gross hematuria; R62.7 Adult failure to thrive; Z66 Do not resuscitate; Z82.49 Family history of ischemic heart disease and other diseases of the circulatory system; R46.0 Very low level of personal hygiene; N95.9 Unspecified menopausal and perimenopausal disorder; Z79.899 Other long term (current) drug therapy
CPT/HCPCS: 36415; 36569; 36600; 70450; 71045; 71250; 74018; 74176; 76700; 80048; 80053; 80202; 80307; 81001; 82550; 82805; 82962; 83540; 83550; 83605; 83735; 84100; 84145; 84443; 84478; 85007; 85025; 85027; 85049; 85379; 85384; 85610; 85730; 86705; 86709; 86803; 87040; 87070; 87077; 87086; 87205; 87340; 93005; 93306; 94002; 94003; 96361; 96365; 96375; C9113; J0330; J0696; J0878; J1650; J1815; J2020; J2060; J2185; J2248; J2250; J2405; J2543; J2704; J3010; J3370; J3480; J3490; J7030; J7040; J7050; P9045; P9046; 99285-25; G0378